=== PATIENT | male | born 1950 | race Caucasian/White ===

== ENCOUNTER → 2017-11-06 15:21 | Outpatient (CLI) | payer BC, SELFPAY ==
[2017-11-06 16:52] LABS: Alanine Aminotransferase 36 U/L (12-78); Albumin Level 3.9 gm/dL (3.4-5.0); Alkaline Phosphatase 56 U/L (46-116); Anion Gap 11.3 mEq/L (5-15); Aspartate Amino Transferase 26 U/L (15-37); Bilirubin,Total 0.3 mg/dL (0.2-1.0); Blood Urea Nitrogen 18 mg/dL (7-18); Carbon Dioxide 30 mmol/L (21.0-32.0); Chloride 105 mmol/L (98-107); Chol/HDL Ratio 3.1 (1-3.5); Cholesterol 129 mg/dL (140-200); Creatinine,Serum 0.78 mg/dL (0.70-1.30); Estimated Glomerular Filt Rate 100 ml/min (>60); GFR (African American) 121 ML/MIN (>60); Globulin 4.1 gm/dl (1.3-3.2); Glucose 97 mg/dL (74-106); HDL Cholesterol 41 mg/dL (27-67); LDL Cholesterol 58 mg/dL (0-130); Potassium 4.3 mmoL/L (3.5-5.1); Sodium 142 mmol/L (136-145); Triglycerides 152 mg/dL (30-200); VLDL Cholesterol 30 mg/dL (0-40)
== END ==
PROVIDERS: PCP Internal Medicine; Visit Provider Internal Medicine
DX: E78.5 Hyperlipidemia, unspecified (principal); I10 Essential (primary) hypertension; R39.12 Poor urinary stream; M54.42 Lumbago with sciatica, left side
CPT/HCPCS: 36415; 80053; 80061; 84153; 85014

== ENCOUNTER → 2018-05-16 10:13 | Outpatient (CLI) | payer BC, SELFPAY ==
[2018-05-16 12:49] LABS: Alanine Aminotransferase 29 U/L (12-78); Albumin Level 3.7 gm/dL (3.4-5.0); Alkaline Phosphatase 68 U/L (46-116); Anion Gap 12.3 mEq/L (5-15); Aspartate Amino Transferase 19 U/L (15-37); Bilirubin,Total 0.5 mg/dL (0.2-1.0); Blood Urea Nitrogen 16 mg/dL (7-18); Calcium 8.8 mg/dL (8.5-10.1); Carbon Dioxide 30 mmol/L (21.0-32.0); Chloride 104 mmol/L (98-107); Chol/HDL Ratio 5.3 (1-3.5); Cholesterol 210 mg/dL (140-200); Creatinine,Serum 0.82 mg/dL (0.70-1.30); Estimated Glomerular Filt Rate 94 ml/min (>60); GFR (African American) 114 ML/MIN (>60); Globulin 3.8 gm/dl (1.3-3.2); Glucose 102 mg/dL (74-106); HDL Cholesterol 40 mg/dL (27-67); LDL Cholesterol 122 mg/dL (0-130); Potassium 4.3 mmoL/L (3.5-5.1); Sodium 142 mmol/L (136-145); Total Protein,Serum 7.5 gm/dL (6.4-8.2); Triglycerides 242 mg/dL (30-200); VLDL Cholesterol 48 mg/dL (0-40)
== END ==
PROVIDERS: PCP Internal Medicine; Visit Provider Internal Medicine
DX: E78.5 Hyperlipidemia, unspecified (principal); I10 Essential (primary) hypertension
CPT/HCPCS: 36415; 80053; 80061

== ENCOUNTER → 2020-10-28 10:13 | Outpatient (CLI) | payer BC, SELFPAY ==
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
== END ==
PROVIDERS: PCP Internal Medicine; Visit Provider Internal Medicine
DX: S90.931A Unspecified superficial injury of right great toe, initial encounter (principal)
CPT/HCPCS: 73660

== ENCOUNTER → 2020-11-16 10:15 | Outpatient (CLI) | payer BC, SELFPAY ==
--- NOTE | 2020-11-16 10:21 | XR_ITS ---
PROCEDURE: XR FOOT WT BEARING RT 3V CLINICAL INDICATION: big toe pain COMPARISON: No exams were available for comparison FINDINGS: No fracture or dislocation. No lytic or blastic change. There is normal mineralization. There is pes planus. Osteoarthritic changes are present at the tarsal metatarsal junction dorsally. There is a small calcaneal spur as well as an enthesophyte at the Achilles insertion. Hammertoe deformity involves the 2nd toe. Other findings:None. IMPRESSION: Degenerative changes as described above Dictated by: Jacob Bruce MD 11/16/2020 11:42 Jacob Bruce MD in [place] 11/16/2020 11:42
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
== END ==
PROVIDERS: PCP Internal Medicine; Visit Provider Internal Medicine
DX: T14.8XXA Other injury of unspecified body region, initial encounter (principal); M79.642 Pain in left hand; M25.532 Pain in left wrist
CPT/HCPCS: 73110; 73130; 73630

== ENCOUNTER → 2020-11-21 14:37 | Outpatient (CLI) | payer BC, SELFPAY ==
--- NOTE | 2020-11-21 14:40 | XR_ITS ---
PROCEDURE: XR HAND LT MIN 3V CLINICAL INDICATION: LT hand fracture COMPARISON: CR XR HAND LT MIN 3V from 11/16/2020 FINDINGS: Degenerative changes of the metacarpophalangeal joints are noted. There is evidence of minor deformity of the 2nd metatarsal, likely sequela of prior fracture. No acute fractures or dislocations. The joint spaces are well-preserved. No significant degenerative/arthritic changes. No erosive changes evident. Other findings:None. IMPRESSION: Deformity of the 2nd metatarsal is noted, likely sequela of prior fracture. No other acute fractures or dislocations. Dictated by: Veronica Frye 11/21/2020 15:11 Veronica Frye in [place] 11/21/2020 15:11
== END ==
PROVIDERS: PCP Internal Medicine; Visit Provider Orthopaedic Surgery
DX: M79.642 Pain in left hand (principal)
CPT/HCPCS: 73130

== ENCOUNTER 2020-11-21 16:10 | Outpatient (RCR) | payer BC, SELFPAY | END 2020-11-21 17:00 | disposition home or self-care (01) | LOC: OT 16:10 | PROVIDERS: Visit Provider Orthopaedic Surgery | DX: M79.642 Pain in left hand (principal); S62.351A Nondisplaced fracture of shaft of second metacarpal bone, left hand, initial encounter for closed fracture | CPT/HCPCS: 97760 ==

== ENCOUNTER → 2020-12-16 12:37 | Outpatient (CLI) | payer BC, SELFPAY ==
--- NOTE | 2020-12-16 12:47 | XR_ITS ---
PROCEDURE: XR HAND LT MIN 3V CLINICAL INDICATION: Left hand fracture Posttraumatic pain follow-up fracture COMPARISON: CR XR HAND LT MIN 3V from 11/16/2020 CR XR HAND LT MIN 3V from 11/21/2020 FINDINGS: There is a nondisplaced fracture of the 2nd metacarpal as previously described not significantly changed. Well-circumscribed lucency is noted along the base of an osteophyte at the proximal aspect of the distal phalanx of the thumb suggesting an old fracture. There are osteoarthritic changes of the DIP joints and the 1st metacarpal-carpal joint IMPRESSION: Overall no significant change. Second metacarpal fracture once again noted and may be old. Please correlate with patient's area of pain and tenderness. Dictated by: Jacob Bruce MD 12/16/2020 16:26 Jacob Bruce MD in [place] 12/16/2020 16:26
== END ==
PROVIDERS: PCP Internal Medicine; Visit Provider Orthopaedic Surgery
DX: S62.351D Nondisplaced fracture of shaft of second metacarpal bone, left hand, subsequent encounter for fracture with routine healing (principal)
CPT/HCPCS: 73130

== ENCOUNTER → 2021-07-26 15:29 | Outpatient (CLI) | payer BC, SELFPAY ==
--- NOTE | 2021-07-26 15:32 | XR_ITS ---
PROCEDURE: XR HIP LT 2-3V W/PELVIS CLINICAL INDICATION: left hip pain COMPARISON: No exams were available for comparison FINDINGS: There are severe osteoarthritic changes of the left hip with loss of joint space superiorly and osteophyte formation. There is mild flattening of the superior lateral aspect of the femoral head and mild widening of the left hip joint space. There [id number] osteoarthritic changes of the right hip. IMPRESSION: Severe osteoarthritis of the left hip with mild flattening of the femoral head superior laterally [id number] osteoarthritis of the right hip Dictated by: Jacob Bruce MD 07/26/2021 16:39 Jacob Bruce MD in [place] 07/26/2021 16:39
== END ==
PROVIDERS: PCP Internal Medicine; Visit Provider Orthopaedic Surgery
DX: M25.552 Pain in left hip (principal)
CPT/HCPCS: 73502

== ENCOUNTER → 2021-09-06 15:30 | Outpatient (CLI) | payer BC, SELFPAY ==
--- NOTE | 2021-09-06 15:47 | XR_ITS ---
FINAL REPORT CLINICAL HISTORY: HTN, smoker FINDINGS: TWO VIEWS OF THE CHEST The heart is normal in size. The mediastinum is unremarkable. There is an 11 mm nodule in the right lung base, may represent a calcified granuloma. There is no pneumothorax. There are moderate degenerative changes of the thoracic spine. IMPRESSION: Right lung base nodule, may represent a calcified granuloma. Reviewed, Interpreted and Dictated by Miguel Raphael III, MD Transcribed by Keyla Mendoza Authenticated by Miguel Raphael III, MD on 09/06/2021 04:59:55 PM [facility]
--- NOTE | 2021-09-06 15:47 | ECG_ITS ---
APPROVED REPORT Exam: Resting ECG HR:54 bpm ECG Measurements Heart Rate 54 AXES MD 158 P 23 QRSd 86 QRS 56 QT 416 T 56 QTc 394 Conclusion Sinus bradycardia Otherwise normal ECG Electronically signed by : Stefan Pérez MD 09/08/2021 13:48:57
[2021-09-06 18:55] LABS: Basophils # 0.1 K/mm3 (0-0.2); Eosinophils # 0.2 K/mm3 (0.0-0.4); Eosinophils % 3.5 % (0.1-12.0); Hematocrit 43.7 % (42.0-52.0); Hemoglobin 14.2 g/dL (14.1-18.0); Lymphocytes # 2.3 K/mm3 (0.7-4.5); Lymphocytes % 36.5 % (10-50); Mean Corpuscular HGB Conc 32.5 g/dL (31.8-35.4); Mean Corpuscular Hemoglobin 29.3 pg (27.0-31.2); Mean Corpuscular Volume 90.3 fl (80-94); Mean Platelet Volume 9.4 fl (7.4-10.4); Monocytes # 0.4 K/mm3 (0.1-1.0); Monocytes % 6.5 % (1.7-9.3); Neutrophils # 3.3 K/mm3 (1.8-7.8); Neutrophils % 52.4 % (37.0-80.0); Platelet Count 203 K/mm3 (142-424); Red Blood Count 4.84 M/mm3 (4.60-6.20); Red Cell Distribution Width 13.6 % (11.5-17.5); White Blood Count 6.3 K/mm3 (4.8-10.8)
[2021-09-06 19:11] LABS: Chloride 103 mmol/L (98-107); Potassium 4.4 mmoL/L (3.5-5.1); Sodium 140 mmol/L (136-145)
[2021-09-06 19:13] LABS: Blood Urea Nitrogen 16 mg/dl (9-20); Estimated Glomerular Filt Rate 112 ml/min (>60); GFR (African American) 135 ML/MIN (>60)
[2021-09-06 19:14] LABS: Alanine Aminotransferase 18 U/L (12-78); Albumin Level 4.3 g/dl (3.5-5.0); Albumin/Globulin Ratio 1.6 (1.1-1.8); Alkaline Phosphatase 54 U/L (38-126); Anion Gap 11.4 mEq/L (5-15); Aspartate Amino Transferase 30 U/L (17-59); Bilirubin,Total 0.4 mg/dl (0.2-1.3); Calcium 9.1 mg/dl (8.4-10.2); Carbon Dioxide 30 mmol/L (22.0-30.0); Globulin 2.7 g/dL (1.3-3.2); Glucose 85 mg/dl (74-100)
== END ==
PROVIDERS: PCP Internal Medicine; Visit Provider Internal Medicine
DX: Z01.818 Encounter for other preprocedural examination (principal); I10 Essential (primary) hypertension; M16.12 Unilateral primary osteoarthritis, left hip
CPT/HCPCS: 71046; 80053; 85025; 93005

== ENCOUNTER → 2022-07-31 17:09 | Outpatient (CLI) | payer BC, SELFPAY ==
[2022-07-31 17:35] LABS: Basophils # 0.1 K/mm3 (0-0.2); Basophils % 0.9 % (0.1-2.0); Eosinophils # 0.2 K/mm3 (0.0-0.4); Eosinophils % 3.4 % (0.1-12.0); Hematocrit 44.7 % (42.0-52.0); Hemoglobin 14.4 g/dL (14.1-18.0); Lymphocytes # 2.3 K/mm3 (0.7-4.5); Lymphocytes % 35.8 % (10-50); Mean Corpuscular HGB Conc 32.1 g/dL (31.8-35.4); Mean Corpuscular Hemoglobin 27.9 pg (27.0-31.2); Mean Corpuscular Volume 87.1 fl (80-94); Mean Platelet Volume 9.2 fl (7.4-10.4); Monocytes # 0.4 K/mm3 (0.1-1.0); Neutrophils # 3.5 K/mm3 (1.8-7.8); Platelet Count 246 K/mm3 (142-424); Red Blood Count 5.14 M/mm3 (4.60-6.20); Red Cell Distribution Width 14.4 % (11.5-17.5); White Blood Count 6.4 K/mm3 (4.8-10.8)
[2022-07-31 19:41] LABS: Alanine Aminotransferase 21 U/L (12-78); Albumin Level 4.4 g/dl (3.5-5.0); Albumin/Globulin Ratio 1.5 (1.1-1.8); Alkaline Phosphatase 102 U/L (38-126); Anion Gap 13.5 mEq/L (5-15); Aspartate Amino Transferase 31 U/L (17-59); Bilirubin,Total 0.7 mg/dl (0.2-1.3); Blood Urea Nitrogen 14 mg/dl (9-20); Calcium 9.3 mg/dl (8.4-10.2); Carbon Dioxide 26 mmol/L (22.0-30.0); Chloride 103 mmol/L (98-107); Chol/HDL Ratio 6.2 (1-3.5); Cholesterol 229 mg/dl (140-200); Estimated Glomerular Filt Rate 83 ml/min (>60); GFR (African American) 101 ML/MIN (>60); Globulin 2.9 g/dL (1.3-3.2); Glucose 85 mg/dl (74-100); HDL Cholesterol 37 mg/dl (40-60); Potassium 4.5 mmoL/L (3.5-5.1); Sodium 138 mmol/L (136-145); Total Protein,Serum 7.3 g/dl (6.3-8.2); Triglycerides 164 mg/dl (30-150); VLDL Cholesterol 33 mg/dL (0-40)
[2022-07-31 19:51] LABS: Direct LDL Cholesterol 89.42 mg/dL (100-129)
[2022-07-31 20:10] LABS: Prostate Specific Ag Screen 0.9 ng/ml (0.0-4.0)
== END ==
PROVIDERS: PCP Internal Medicine; Visit Provider Internal Medicine
DX: I10 Essential (primary) hypertension (principal); M54.42 Lumbago with sciatica, left side; K21.9 Gastro-esophageal reflux disease without esophagitis; J44.9 Chronic obstructive pulmonary disease, unspecified; N40.1 Benign prostatic hyperplasia with lower urinary tract symptoms; Z96.642 Presence of left artificial hip joint; Z12.5 Encounter for screening for malignant neoplasm of prostate
CPT/HCPCS: 80053; 80061; 85025; G0103

== ENCOUNTER → 2023-01-29 15:25 | Outpatient (CLI) | payer BC, SELFPAY ==
[2023-01-29 16:43] LABS: Alanine Aminotransferase 21 U/L (12-78); Albumin Level 4.2 g/dl (3.5-5.0); Albumin/Globulin Ratio 1.4 (1.1-1.8); Alkaline Phosphatase 67 U/L (38-126); Anion Gap 12.3 mEq/L (5-15); Aspartate Amino Transferase 29 U/L (17-59); Bilirubin,Total 0.5 mg/dl (0.2-1.3); Blood Urea Nitrogen 15 mg/dl (9-20); Calcium 8.8 mg/dl (8.4-10.2); Carbon Dioxide 29 mmol/L (22.0-30.0); Chloride 103 mmol/L (98-107); Chol/HDL Ratio 6.4 (1-3.5); Cholesterol 245 mg/dl (140-200); Estimated Glomerular Filt Rate 111 ml/min (>60); GFR (African American) 135 ML/MIN (>60); Glucose 87 mg/dl (74-100); HDL Cholesterol 38 mg/dl (40-60); Potassium 4.3 mmoL/L (3.5-5.1); Sodium 140 mmol/L (136-145); Total Protein,Serum 7.2 g/dl (6.3-8.2); Triglycerides 294 mg/dl (30-150); VLDL Cholesterol 59 mg/dL (0-40)
[2023-01-29 16:54] LABS: Direct LDL Cholesterol 66.95 mg/dL (100-129)
== END ==
PROVIDERS: PCP Internal Medicine; Visit Provider Internal Medicine
DX: I10 Essential (primary) hypertension (principal); E78.5 Hyperlipidemia, unspecified
CPT/HCPCS: 36415; 80053; 80061

== ENCOUNTER 2023-10-30 17:00 | Outpatient (CLI) | payer BC, SELFPAY ==
[2023-10-30 17:57] LABS: Alanine Aminotransferase 23 U/L (12-78); Albumin Level 4.3 g/dl (3.5-5.0); Albumin/Globulin Ratio 1.5 (1.1-1.8); Alkaline Phosphatase 61 U/L (38-126); Anion Gap 11.3 mEq/L (5-15); Aspartate Amino Transferase 30 U/L (17-59); Bilirubin,Total 0.5 mg/dl (0.2-1.3); Blood Urea Nitrogen 14 mg/dl (9-20); Carbon Dioxide 28 mmol/L (22.0-30.0); Chloride 103 mmol/L (98-107); Chol/HDL Ratio 5.3 (1-3.5); Cholesterol 190 mg/dl (140-200); Estimated Glomerular Filt Rate 111 ml/min (>60); GFR (African American) 135 ML/MIN (>60); Globulin 2.8 g/dL (1.3-3.2); Glucose 88 mg/dl (74-100); HDL Cholesterol 36 mg/dl (40-60); Potassium 4.3 mmoL/L (3.5-5.1); Sodium 138 mmol/L (136-145); Total Protein,Serum 7.1 g/dl (6.3-8.2); Triglycerides 215 mg/dl (30-150); VLDL Cholesterol 43 mg/dL (0-40)
[2023-10-30 18:09] LABS: Direct LDL Cholesterol 64.84 mg/dL (100-129)
[2023-10-30 18:28] LABS: Prostate Specific Ag Screen 0.9 ng/ml (0.0-4.0)
== END 2023-10-30 23:59 ==
LOC: LAB.DROPOF 17:00
PROVIDERS: PCP Internal Medicine; Visit Provider Internal Medicine
DX: I10 Essential (primary) hypertension (principal); E78.5 Hyperlipidemia, unspecified; K21.9 Gastro-esophageal reflux disease without esophagitis; N40.1 Benign prostatic hyperplasia with lower urinary tract symptoms; J44.9 Chronic obstructive pulmonary disease, unspecified; Z12.5 Encounter for screening for malignant neoplasm of prostate
CPT/HCPCS: 80053; 80061; G0103

== ENCOUNTER 2024-04-29 16:50 | Outpatient (CLI) | payer BC, SELFPAY ==
[2024-04-29 17:22] LABS: Basophils # 0.1 K/mm3 (0-0.2); Basophils % 0.9 % (0.1-2.0); Eosinophils # 0.2 K/mm3 (0.0-0.4); Eosinophils % 3.2 % (0.1-12.0); Hematocrit 43.2 % (42.0-52.0); Hemoglobin 13.6 g/dL (14.1-18.0); Lymphocytes # 2.1 K/mm3 (0.7-4.5); Lymphocytes % 35.6 % (10-50); Mean Corpuscular HGB Conc 31.5 g/dL (31.8-35.4); Mean Platelet Volume 9.4 fl (7.4-10.4); Monocytes # 0.3 K/mm3 (0.1-1.0); Monocytes % 5.6 % (1.7-9.3); Neutrophils # 3.3 K/mm3 (1.8-7.8); Neutrophils % 54.7 % (37.0-80.0); Platelet Count 185 K/mm3 (142-424); Red Cell Distribution Width 14.6 % (11.5-17.5)
[2024-04-29 18:12] LABS: Alanine Aminotransferase 15 U/L (12-78); Albumin Level 3.8 g/dl (3.5-5.0); Albumin/Globulin Ratio 1.2 (1.1-1.8); Alkaline Phosphatase 57 U/L (38-126); Anion Gap 8.3 mEq/L (5-15); Aspartate Amino Transferase 28 U/L (17-59); Bilirubin,Total 0.6 mg/dl (0.2-1.3); Blood Urea Nitrogen 11 mg/dl (9-20); Calcium 8.8 mg/dl (8.4-10.2); Carbon Dioxide 31 mmol/L (22.0-30.0); Chloride 103 mmol/L (98-107); Cholesterol 204 mg/dl (140-200); Estimated Glomerular Filt Rate 111 ml/min (>60); GFR (African American) 134 ML/MIN (>60); Globulin 3.1 g/dL (1.3-3.2); Glucose 80 mg/dl (74-100); HDL Cholesterol 34 mg/dl (40-60); Potassium 4.3 mmoL/L (3.5-5.1); Sodium 138 mmol/L (136-145); Total Protein,Serum 6.9 g/dl (6.3-8.2); Triglycerides 209 mg/dl (30-150); VLDL Cholesterol 42 mg/dL (0-40)
[2024-04-29 18:23] LABS: Direct LDL Cholesterol 65.17 mg/dL (100-129)
== END 2024-04-29 23:59 | disposition home or self-care (01) ==
LOC: LAB.DROPOF 16:51
PROVIDERS: PCP Internal Medicine; Visit Provider Internal Medicine
DX: I10 Essential (primary) hypertension (principal); E78.5 Hyperlipidemia, unspecified
CPT/HCPCS: 80053; 80061; 85025

== ENCOUNTER 2024-05-13 12:21 | Outpatient (CLI) | payer BC, SELFPAY | END 2024-05-13 23:59 | disposition home or self-care (01) | LOC: RT 12:23 | PROVIDERS: PCP Internal Medicine; Visit Provider Internal Medicine | DX: I10 Essential (primary) hypertension (principal); Z86.73 Personal history of transient ischemic attack (TIA), and cerebral infarction without residual deficits | CPT/HCPCS: 93225; 93227 ==

== ENCOUNTER 2024-05-27 14:36 | Outpatient (CLI) | payer BC, SELFPAY ==
--- NOTE | 2024-05-27 14:40 | CA_ITS ---
APPROVED REPORT EXAM: Comprehensive 2D, Doppler, and color-flow Echocardiogram Upper Inspector: Marley Oropeza CRT Ht: 5 ft 9 in Wt: 201lbs BSA: 2.07 BP: 146/84 mmHg Indications: CVA/TIA, Hyperlipidemia, Hypertension/HDD, SMOKER 2D Dimensions LA Volume 79.60 mL LA Volume Index 37.50 mL/m2 (M/F) 16-34 M-Mode Dimensions RVDd 2.25 cm (0.9-2.6) LA Diam 4.32 cm (1.9-4.0) LVDd 6.29 cm (3.5-5.7) LVDs 4.79 cm (3.5-5.7) IVSd 1.11 cm (0.6-1.1) PWd 0.68 cm (0.6-1.1) EF (Teich) 46.60% FS 23.80% EDV (Teich) 200.50 mL TAPSE 1.93 (<1.7) ESV (Teich) 107.00 mL LV Diastology E Decel Time 143 (160-240 msec) E/A Ratio 3.06 MED A' 3.40 cm/s LAT A' 3.60 cm/s Aortic Valve AO Peak GR. 6.40 mmHg Mitral Valve MV A Velocity 44.0 (40-130 cm/s) E/A Ratio 3.06 Pulmonary Valve PV Peak Velocity 96.0 (50-150 cm/s) Tricuspid Valve TR P. Velocity 309.00 cm/s RAP Estimate 10.00 mmHg RVSP 48.30 mmHg Left Ventricle The left ventricle is normal size. The left ventricular systolic function is normal. The left ventricular ejection fraction is within the normal range. There is increased LV wall thickness. There is normal LV segmental wall motion. Grade 2 diastolic dysfunction is present. LVEF is 60%. Right Ventricle The right ventricle is normal size. The right ventricular systolic function is normal. Atria Left atrium is moderately dilated. Right atrium is mildly dilated. There is no Doppler evidence of interatrial shunt. Aortic Valve The aortic valve is mildly thickened. There is no aortic valvular stenosis. No aortic regurgitation is present. Mitral Valve There is possible prolapse of the posterior mitral valve leaflet. No evidence of mitral annular disjunction. No evidence of mitral valve stenosis. Moderate to severe mitral regurgitation is present. The MR jet is eccentric and anteriorly directed. The severity of MR may be underestimated in the setting of eccentric MR jet. Tricuspid Valve The tricuspid valve leaflets are thin and pliable. Mild tricuspid regurgitation. RVSP is 30-35 mmHg. Pulmonic Valve The pulmonary valve is not well-visualized. Great Vessels The aortic root is normal in size. The ascending aorta is not well-visualized. IVC is normal in size and collapses >50% with inspiration. Pericardium There is no pericardial effusion. Other Information Study Quality: Fair Conclusion Normal biventricular systolic function. Grade 2 diastolic dysfunction is present. Biatrial dilation. Possible prolapse of the posterior MV leaflet. No evidence of mitral annular disjunction (MAD). Moderate to severe MR. The MR jet is eccentric and anteriorly directed. The MR jet may be underestimated in the setting of eccentric jet. Mild tricuspid regurgitation. RVSP is 30-35 mmHg. In the setting of possible MV prolapse and moderate to severe MR, further evaluation with outpatient VINOD is suggested to evaluate for the true mechanism and severity of MR. Electronically signed by : Vivi Joseph MD 05/28/2024 12:18:49
--- NOTE | 2024-05-27 14:40 | CA_ITS ---
FINAL REPORT TECHNIQUE: Real-time imaging was performed of the extracranial carotid arteries in transverse and longitudinal planes, with color duplex evaluation of blood flow velocity. Spectral analysis was performed. The cervical vertebral arteries were also examined. CLINICAL HISTORY: TIA on 05/08/2024-loss of ability to speak COMPARISON: None FINDINGS: NASCET technique is utilized for stenosis evaluation. Right carotid system (centimeters/second): CCA: 57 ICA: 94 ECA: 43 Vertebral artery: Antegrade ICA/CCA ratio: 1.9 Mild plaque is identified at the bifurcation. Left carotid system (centimeters/second): CCA: 71 ICA: 107 ECA: 54 Vertebral artery: Antegrade ICA/CCA ratio: 2.15 Mild plaque is identified at the bifurcation. IMPRESSION: Less than 50% right ICA stenosis. Less than 50% left ICA stenosis. Antegrade flow bilateral vertebral arteries. Reviewed, Interpreted and Dictated by Jesús Ponce MD Transcribed by Kacy Ivy Authenticated and [facility]
== END 2024-05-27 23:59 | disposition home or self-care (01) ==
LOC: RT 14:37
PROVIDERS: PCP Internal Medicine; Visit Provider Internal Medicine
DX: I10 Essential (primary) hypertension (principal); G45.9 Transient cerebral ischemic attack, unspecified; E78.5 Hyperlipidemia, unspecified
CPT/HCPCS: 93306; 93880

== ENCOUNTER 2024-07-17 09:11 | Outpatient (CLI) | payer BC, SELFPAY ==
[2024-07-17 09:59] LABS: Blood Urea Nitrogen 16 mg/dl (9-20); Estimated Glomerular Filt Rate 95 ml/min (>60); GFR (African American) 115 ML/MIN (>60)
[2024-07-17] MEDS: 0.9 % SODIUM CHLORIDE 50 ML VIAL IV (11:46)
[2024-07-17] MEDS: SODIUM CHLORIDE 0.9% 10ML SYR (RAD ONLY) 10 ML IV (11:46)
[2024-07-17] MEDS: GADOTERIDOL INJ 20ML SYRINGE 20 ML IV (11:46)
== END 2024-07-17 23:59 | disposition home or self-care (01) ==
PROVIDERS: PCP Internal Medicine; Visit Provider Internal Medicine
DX: I34.0 Nonrheumatic mitral (valve) insufficiency (principal); R93.1 Abnormal findings on diagnostic imaging of heart and coronary circulation
CPT/HCPCS: 36415; 75561; 82565; 84520; A9576

== ENCOUNTER 2024-07-22 08:36 | Day surgery (SDC) | payer BC, SELFPAY ==
--- NOTE | 2024-07-22 08:50 | CA_ITS ---
APPROVED REPORT EXAM: Comprehensive 2D, Doppler, and color-flow Echocardiogram Asphalt Mixer: RT Peterson(R) Ht: 5 ft 9 in Wt: 202lbs BSA: 2.07 BP: 127/65 mmHg Indications: mod-severe MR on TTE, COPD, fatigue, weakness, smoker, HTN, hyperlipidemia. Procedure After obtaining informed consent, patient underwent transesophageal echo in the [facility]. Type of Sedation : MAC Sedation was administered by Francisco Elizalde C.R.N.A. Sedation start time: 10:15 Case end Time: 10:30 Transesophageal probe was inserted and advanced into esophagus without difficulty by Dr. Moi Joseph. The VINOD was performed without complications. Throughout the procedure, the blood pressure, pulse oximetry, cardiac rhythm, and rate were monitored. The patient tolerated the procedure without adverse effects. Recovery from conscious sedation was uneventful and vital signs were stable. Left Ventricle The left ventricle is normal size. The left ventricular systolic function is normal. The left ventricular ejection fraction is within the normal range. There is increased LV wall thickness. There is normal LV segmental wall motion. LVEF is 60%. Right Ventricle The right ventricle is normal size. The right ventricular systolic function is normal. Atria The left atrium is dilated. No thrombus is visualized in the left atrium or appendage. The right atrium is dilated. Interatrial septum is intact without evidence of ASD or PFO. Aortic Valve The aortic valve is mildly thickened. There is no aortic valvular stenosis. Trace aortic regurgitation is present. Mitral Valve There is prolapse of the posterior MV leaflet (P1-P2 segments). No evidence of mitral valve stenosis. Severe mitral regurgitation is present. The mechanism of MR is due to prolapsing of the posterior MV leaflet. The MR jet is eccentric and anteriorly directed. EROA by PISA method is 0.43 cm2. MR volume is 78 mL. Regurgitant fraction is 49%. Tricuspid Valve Tricuspid valve is grossly normal in structure and function. Mild tricuspid regurgitation. RVSP is 22 mmHg + RA pressure. Pulmonic Valve The pulmonary valve is normal in structure. Trace pulmonic regurgitation. Great Vessels The aortic root is normal in size. The ascending aorta is normal in size. Pericardium There is no pericardial effusion. Other Information Study Quality: Fair Conclusion Normal LV systolic function in the setting of severe MR (LVEF 60%). Biatrial dilation. Posterior MV leaflet prolapse (P1-P2 segments). Severe MR (The MR jet is eccentric and anteriorly directed. EROA by PISA method is 0.43 cm2. MR volume is 78 mL. Regurgitant fraction is 49%). Mild TR. RVSP 22 mmHg + RA pressure. Electronically signed by : Vivi Joseph MD 07/24/2024 15:09:05
[2024-07-22 09:00] VITALS: BMI 36.9
--- NOTE | 2024-07-22 09:08 | ECG_ITS ---
APPROVED REPORT Exam: Resting ECG HR:62 bpm ECG Measurements Heart Rate 62 AXES ID 159 P 17 QRSd 106 QRS 54 QT 398 T 56 QTc 403 Conclusion SINUS RHYTHM WITH SINUS ARRHYTHMIA NORMAL ECG UNCONFIRMED REPORT Electronically signed by : Lewis Ly MD 07/24/2024 14:14:18
[2024-07-22 09:16] VITALS: BP 161/96; PULSE 65; RESP 18; TEMP 36.5; O2SAT 99; BMI 31.6
[2024-07-22] MEDS: LACTATED RINGERS 1000ML 1,000 ML 25 ML IV (09:27)
[2024-07-22 09:38] LABS: Basophils % 0.7 % (0.1-2.0); Eosinophils # 0.1 K/mm3 (0.0-0.4); Eosinophils % 1.9 % (0.1-12.0); Hematocrit 36.3 % (42.0-52.0); Hemoglobin 12.8 g/dL (14.1-18.0); Lymphocytes # 1.2 K/mm3 (0.7-4.5); Lymphocytes % 17.7 % (10-50); Mean Corpuscular HGB Conc 35.2 g/dL (31.8-35.4); Mean Corpuscular Hemoglobin 30.1 pg (27.0-31.2); Mean Corpuscular Volume 85.6 fl (80-94); Mean Platelet Volume 8.5 fl (7.4-10.4); Monocytes # 0.4 K/mm3 (0.1-1.0); Monocytes % 5.1 % (1.7-9.3); Neutrophils # 5.1 K/mm3 (1.8-7.8); Neutrophils % 74.6 % (37.0-80.0); Platelet Count 135 K/mm3 (142-424); Red Blood Count 4.24 M/mm3 (4.60-6.20); White Blood Count 6.8 K/mm3 (4.8-10.8)
[2024-07-22 09:45] LABS: Chloride 105 mmol/L (98-107); Potassium 3.7 mmoL/L (3.5-5.1); Sodium 138 mmol/L (136-145)
[2024-07-22 09:48] LABS: Blood Urea Nitrogen 12 mg/dl (9-20); Creatinine Clearance Estimated 92 mL/min (50-200); Estimated Glomerular Filt Rate 95 ml/min (>60); GFR (African American) 115 ML/MIN (>60)
--- NOTE | 2024-07-22 09:48 | P.PNANES_ITS ---
[facility] Disclaimer: The information contained in this section may have been updated after the patient was seen, as this information can be updated by other users. Medical History BPH loc w urin obs/LUTS Lumbago with sciatica, left side Unilateral primary osteoarthritis, left hip Gastro-esophageal reflux disease without esophagitis Chronic obstructive pulmonary disease, unspecified Allergic rhinitis, unspecified Essential (primary) hypertension Nicotine dependence, unspecified, with unspecified nicotine-induced disorders Hyperlipidemia Surgical History History of total left hip replacement Family History (Updated 07/22/24 @ 09:11 by Stacie Baxter RN) Other No significant family history Social History (Updated 07/22/24 @ 09:12 by Stacie Baxter RN) Smoking Status: Former smoker tobacco type: cigarettes alcohol intake: never substance use type: denies use current occupational status: employed household members: significant other [facility] Anesthesia Checklist Patient Identification Patient Identification: Arm Band and Family Structural Data Admitted From: Home Planned Operative Procedure/s: VINOD Consent for Planned Operative Procedure(s) Verified: Yes Verified Documents: Surgical Consent and History and Physical NPO Status Verified Time NPO: 00:00 Additional verifications Patient : No Anesthesia Reactions: No Hx Blood Transfusions: No Blood Transfusion Reaction: No Cephalosporin Allergy: No Previous Colonoscopy: Yes Airway Assessment Mallampati Score:: Class II C-Spine Mobility Assessed: Yes TMJ Mobility Assessed: Yes Dentition: Edentulous Neurological Assessment Level of Consciousness: Awake, Alert, Appropriate and Follows Commands Hx Seizures: No Numbness or tingling in extremities: No Anesthesia Plan Anesthesia Risk discussed: Yes ASA Class: II Anesthesia Type: MAC Preoperative Comments Pre-Operative Comments: Leaky valve. Hypertension. TIA. Abnormal echocardiogram.
[2024-07-22 09:49] LABS: Anion Gap 8.7 mEq/L (5-15); Calcium 8.5 mg/dl (8.4-10.2); Carbon Dioxide 28 mmol/L (22.0-30.0); Glucose 99 mg/dl (74-100)
[2024-07-22 09:50] LABS: Activated Partial Thrombo Time 29.8 seconds (22.8-30.6); INR 0.94 (0.9-1.1); Prothrombin Time 10.6 seconds (10.1-12.5)
[2024-07-22 10:10] VITALS: O2SAT 96
[2024-07-22 10:30] VITALS: BP 149/105; PULSE 79; RESP 15; TEMP 36.6; O2SAT 96
[2024-07-22 10:40] VITALS: BP 151/74; PULSE 65; RESP 18; O2SAT 93
[2024-07-22 10:50] VITALS: BP 133/88; PULSE 80; RESP 16; O2SAT 95
[2024-07-22 11:00] VITALS: BP 153/91; PULSE 62; RESP 16; TEMP 36.6; O2SAT 99
== END 2024-07-22 11:00 | disposition home or self-care (01) ==
PROVIDERS: PCP Internal Medicine; Visit Provider Internal Medicine
DX: I34.0 Nonrheumatic mitral (valve) insufficiency (principal); R93.1 Abnormal findings on diagnostic imaging of heart and coronary circulation; I10 Essential (primary) hypertension; F17.210 Nicotine dependence, cigarettes, uncomplicated; Z79.01 Long term (current) use of anticoagulants; Z79.899 Other long term (current) drug therapy; G45.9 Transient cerebral ischemic attack, unspecified
CPT/HCPCS: 80048; 85025; 85610; 85730; 93005; 93270; 93312; 93319; J2704; J7120

== ENCOUNTER 2024-10-27 11:10 | Outpatient (CLI) | payer MEDICARE, SELFPAY ==
[2024-10-27 11:47] LABS: Basophils # 0.1 K/mm3 (0-0.2); Basophils % 0.7 % (0.1-2.0); Eosinophils # 0.3 K/mm3 (0.0-0.4); Hematocrit 40.5 % (42.0-52.0); Hemoglobin 13.2 g/dL (14.1-18.0); Lymphocytes # 2.3 K/mm3 (0.7-4.5); Lymphocytes % 34.1 % (10-50); Mean Corpuscular HGB Conc 32.6 g/dL (31.8-35.4); Mean Corpuscular Hemoglobin 28.1 pg (27.0-31.2); Mean Corpuscular Volume 86.2 fl (80-94); Mean Platelet Volume 10.8 fl (7.4-10.4); Monocytes # 0.5 K/mm3 (0.1-1.0); Monocytes % 7.9 % (1.7-9.3); Neutrophils # 3.6 K/mm3 (1.8-7.8); Neutrophils % 53.2 % (37.0-80.0); Platelet Count 179 K/mm3 (142-424); Red Cell Distribution Width 13.5 % (11.5-17.5); White Blood Count 6.7 K/mm3 (4.8-10.8)
[2024-10-27 12:04] LABS: Albumin Level 4.4 g/dl (3.5-5.0); Chloride 105 mmol/L (98-107); Potassium 4.4 mmoL/L (3.5-5.1); Sodium 138 mmol/L (136-145)
[2024-10-27 12:07] LABS: Alanine Aminotransferase 23 U/L (12-78); Albumin/Globulin Ratio 1.7 (1.1-1.8); Alkaline Phosphatase 57 U/L (38-126); Anion Gap 10.4 mEq/L (5-15); Aspartate Amino Transferase 40 U/L (17-59); Bilirubin,Total 0.5 mg/dl (0.2-1.3); Blood Urea Nitrogen 16 mg/dl (9-20); Calcium 9.1 mg/dl (8.4-10.2); Carbon Dioxide 27 mmol/L (22.0-30.0); Cholesterol 123 mg/dl (140-200); Estimated Glomerular Filt Rate 95 ml/min (>60); GFR (African American) 115 ML/MIN (>60); Globulin 2.6 g/dL (1.3-3.2); Glucose 84 mg/dl (74-100); HDL Cholesterol 41 mg/dl (40-60); Triglycerides 141 mg/dl (30-150); VLDL Cholesterol 28 mg/dL (0-40)
[2024-10-27 12:18] LABS: Direct LDL Cholesterol 35.74 mg/dL (100-129)
== END 2024-10-27 23:59 | disposition home or self-care (01) ==
PROVIDERS: PCP Internal Medicine; Visit Provider Internal Medicine
DX: I10 Essential (primary) hypertension (principal); E78.49 Other hyperlipidemia; Z86.73 Personal history of transient ischemic attack (TIA), and cerebral infarction without residual deficits
CPT/HCPCS: 36415; 80053; 80061; 85025

== ENCOUNTER 2025-04-28 13:00 | Outpatient (CLI) | payer MEDICARE, SELFPAY ==
--- OUTSIDE RECORDS SUMMARY | 2025-03-15 10:00 | XMS_ITS | Encounter Summary ---
Author Organization [facility] Address [address] [place] [address] Care Team Providers Care Network Relay Tester Name Role Phone Stefan Pérez MD Primary Care Provider [phone] Reason for Referral * Consultation (Routine) - Closed Specialty Diagnoses / Procedures Referred By Contac t Referred To Contact Cardiothoracic Surgery Diagnoses Nonrheumatic mitral valve regurgitation Ana Cornelius PA [address] [place] [address] Phone: tel: fax: [facility] [address], [address] [place] [address] Phone: tel:[phone] fax:[phone] Referral ID Status Reason Start Date Expiration Date V isits Requested Visits Authorized [id number] Closed Specialty Services Required 03/15/2025 09/14/2026 1 1 Reason for Visit * Consultation (Routine) - Closed Specialty Diagnoses / Procedures Referred By Contac t Referred To Contact Cardiology Diagnoses Mitral valve insufficiency, unspecified etiology Moi Joseph MD [address] [facility] [address] [place] [address] Phone: tel: fax: Referral ID Status Reason Start Date Expiration Date V isits Requested Visits Authorized [id number] Closed Specialty Services Required 02/16/2025 08/18/2026 1 1 Encounter Details Date Type Department Care Team (Latest Contact Info) Description 03/15/2025 10:00 AM EDT Office Visit [facility] [address] [place] [address] Joanne Bolaños MD [address] [place] [address] Nonrheumatic mitral valve regurgitation (Primary Dx); Heart failure, unspecified (CMS/HCC) Social History Tobacco Use Types Packs/Day Years Used Date Smoking Tobacco: Former Cigarettes 1 30 Smokeless Tobacco: Never Alcohol Use Standard Drinks/Week Comments Not Currently 0 (1 standard drink = 0.6 oz pure alcohol) Hx ETOH abuse none x 15 years PHQ-2 Answer Date Recorded Patient Health Questionnaire-2 Score 0 03/15/2025 PHQ-9 Answer Date Recorded Patient Health Questionnaire-9 Score 0 03/15/2025 Sex and Gender Information Value Date Recorded Sex Assigned at Not on file Legal Sex Male 5:55 PM EDT Gender Identity Not on file Sexual Orientation Not on file documented as of this encounter Last Filed Vital Signs Vital Sign Reading Time Taken Comments Blood Pressure 138/93 03/15/2025 10:17 AM EDT Pulse 53 03/15/2025 10:17 AM EDT Temperature - - Respiratory Rate - - Oxygen Saturation 98% 03/15/2025 10: 17 AM EDT Inhaled Oxygen Concentration - - Weight 89.2 kg (196 lb 10.4 oz) 025 10:14 AM EDT Height 175.3 cm (5' 9 ) 03/15/2025 10:1 4 AM EDT Body Mass Index 29.04 03/15/2025 10:14 AM EDT documented in this encounter Functional Status * Over the past 2 weeks, how often have you been bothered by any of the following problems? Question Answer Date of Assessment Author Little interest or pleasure in doing things Not at all 03/15/2025 10:15 AM EDT Jyothi Arrington Feeling down, depressed, or hopeless Not at all 03/15/2025 10:15 AM EDT Jyothi Arrington Patient Health Questionnaire -2 Score 0 03/15/2025 10:15 AM Jyothi Tamez * Question Answer Date of Assessment Author Trouble falling or staying asleep, or sleeping too much Not at all 03/15/2025 10:15 AM EDJyothi Huynh Feeling tired or having prateek le energy Not at all 03/15/2025 10:15 AM EDT Jyothi Arrington Poor appetite or overeating Not at all 03/15/2025 10 :15 AM EDT Jyothi Arrington Feeling bad about yourself - or that you are a failure or have let yourself or your family down Not at all 03/15/2025 10:15 AM EDT Jyothi Chavarria Trouble concentrating on thi ngs, such as reading the newspaper or watching television Not at all 03/15/2025 10:15 AM EDT Jyothi Arrington Moving or speaking so slowly that other people could have noticed? Or the opposite - being so fidgety or restless that you have been moving around a lot more than usual. Not at all 03/15/2025 10:15 AM EDJyothi Huynh Thoughts that you would be b china off or hurting yourself in some way Not at all 03/15/2025 10:15 AM EDJyothi Huynh Patient Health Questionnaire -9 Score 0 03/15/2025 10:15 AM Jyothi Tamez * If you checked off any problems on this questionnaire so far, Question Answer Date of Assessment Author How difficult have these problems made it for you to do your work, take care of things at home, or get along with other people? Not difficult at all 03/15/2025 10:15 AM Jyothi Tamez documented as of this encounter Miscellaneous Notes * Progress Notes - Ana Cornelius PA - 03/15/2025 10:00 AM EDT Images from the original note were not included. Structural Heart Consult Note Jake Pacheco is a 74 y.o. male who presents today for consultation with Dr. Bolaños at the request of Dr. Joseph in regard to mitral regurgitation. Patient's medical history is significant for HTN, COPD, H/o tobacco abuse and mitral valve disease. This Fall patient has what he and his describe as an episode after working and getting out of the showering. He was unable to get words out and girlfriend called EMS. Patient states since thattime he has been more fatigued and wearing out faster. 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 Denies any symptoms of chest discomfort or LE edema. Cardiac Testing: CMR 07/17/2024 significant MR TTE 05/27/24: EF 60%, anteriorly directed mitral valve jet with moderate-severe MR VINOD 07/22/24: EF 60%, severe MR, prolapsing posterior leaflet, mild TR Review of symptoms 14 Point ROS reviewed and is otherwise negative except as per HPI. The following portions of the chart were reviewed this encounter and updated as appropriate: Tobacco Allergies Meds Problems Med Hx Surg Hx Fam Hx Medications Current Medications[1] Physical Exam Physical Exam Vitals and nursing note reviewed. Constitutional: Appearance: Normal appearance. HENT: Head: Normocephalic and atraumatic. Nose: Nose normal. Mouth/Throat: Mouth: Mucous membranes are moist. Eyes: Conjunctiva/sclera: Conjunctivae normal. Cardiovascular: Rate and Rhythm: Normal rate and regular rhythm. Pulses: Normal pulses. Heart sounds: S1 normal and S2 normal. Murmur heard. High-pitched blowing holosystolic murmur is present at the apex. Pulmonary: Effort: Pulmonary effort is normal. Breath sounds: Normal breath sounds. Abdominal: General: Abdomen is flat. Palpations: Abdomen is soft. Musculoskeletal: General: Normal range of motion. Cervical back: Neck supple. Skin: General: Skin is warm and dry. Neurological: General: No focal deficit present. Mental Status: He is alert and oriented to person, place, and time. Psychiatric: Attention and Perception: Attention normal. Mood and Affect: Mood normal. Behavior: Behavior normal. Visit Vitals BP (!) 138/93 Pulse 53 Ht 1.753 m (5' 9 ) Wt 89.2 kg (196 lb 10.4 oz) SpO2 98% BMI 29.04 kg/m?? Imaging No echocardiogram results found for the past 12 months Labs Lab Results Component Value Date/Time WBC 9.39 12/09/2021 0348 RBC 3.58 (L) 12/09/2021 0348 HGB 10.5 (L) 12/09/2021347 HCT 31.6 (L) 12/09/20218 Lab Results Component Value Date/Time BUN 19 12/09/20218 NA 135 (L) 12/09/2021347 K 4.1 12/09/2021347 CL 102 12/09/2021347 No results found for: AST , ALT , ALKPHOS No results found for: CHOL , LDL , HDL , TRIGLYCERIDE Lab Results Component Value Date/Time HGBA1C 5.5 11/29/2021 1405 No results found for: TSH , FREET4 Assessment and Plan #Mitral Regurgitation --Echo images reviewed showing severe MR with a prolapsing posterior leaflet --ECG shows sinus bradycardia --NYHA Class II --Increase fatigue over the last 6 months to a year --Will refer to CT surgery for consideration of mitral valve repair given primary MR etiology #HTN --Continue current medical therapy Referral to CT surgery. I spent 61 minutes performing the following components of the encounter (on the day of the encounter): reviewing History, examining the patient, reviewing imaging and/or labs, Independently interpreting echocardiogram, ECG and/or other imaging results, counseling the patient and family/caregiver, communicating with other health neurocritical care physician, and entering clinical information in the EHR. Greater than 50% of the time spent on the encounter was face to face providing direct patient care, counseling for the patient/caregiver, and care coordination. Ana Cornelius PA-C Structural GRISELDA [1] Current Outpatient Medications Medication Sig Dispense Refill acetaminophen (Tylenol) 500 MG tablet Take 2 tablets (1,000 mg total) by mouth every 8 (eight) hours if needed for mild pain. 100 tablet 1 aspirin 81 MG EC tablet Take 1 tablet by mouth daily. atorvastatin (Lipitor) 20 MG tablet Take 1 tablet by mouth daily. bisoprolol-hydroCHLOROthiazide (Ziac) 5-6.25 MG tablet 1 (one) time each day. clopidogrel (Plavix) 75 MG tablet Take by mouth daily. losartan (Cozaar) 100 MG tablet Take 1 tablet by mouth daily. senna-docusate sodium (Senokot-S) 8.6-50 MG tablet Take 1 tablet by mouth 1 (one) time each day. 30tablet 0 tiZANidine (Zanaflex) 4 MG tablet 1 (one) time each day. traMADol (Ultram) 50 MG tablet Take 1 tablet (50 mg total) by mouth every 4 (four) hours if needed for severe pain. 60 tablet 0 gabapentin (Neurontin) 100 MG capsule Take 1 capsule (100 mg total) by mouth 3 (three) times a day.(Patient not taking: Reported on 03/15/2025) 30 capsule 0 meloxicam (Mobic) 15 MG tablet Take 1 tablet (15 mg total) by mouth 1 (one) time each day. (Patientnot taking: Reported on 03/15/2025) 30 tablet 0 omeprazole (PriLOSEC) [address] capsule Take 1 capsule (20 mg total) by mouth 1 (one) time each day.Do not crush or chew. Take for 4 weeks post-operatively. (Patient not taking: Reported on 03/15/2025) 30 capsule 0 No current facility-administered medications for this visit. Cosigned by Joanne Bolaños MD at 03/15/2025 11:29 AM EDT Associated attestation - Joanne Bolaños MD - 03/15/2025 11:29 AM EDT 74 y/o M with h/o HTN, COPD/former smoker (quit in 2023), and hyperlipidemia, referred for severe MR. Exertional dyspnea and low energy for the last 6-12 months. No CP. Posterior prolapse and severe primary MR. LVEF 50% on MRI and 60% on TTE. MV surgery is recommended Class I for symptomatic severeMR. For primary MR, JIM (Mitraclip) is recommended (approved) only for high-risk patients. I thinkpatient will be a reasonable surgical candidate. Hopefully, it can be repaired. Will refer him to surgery evaluation. documented in this encounter Plan of Treatment Upcoming Encounters Date Type Department Care Team (Late st Contact Info) Description 05/10/2025 9:00 AM EDT Office Visit [facility] [address], [address] [place] [address] Khushbu Gordon MD [address] [place] [address] Scheduled Referrals Name Type Priority Associated Diagnoses Orde r Schedule Ambulatory referral to Cardiac Surgery Outpatient Referral Routine Nonrheumatic mitral valve regurgitation 1 Occurrences starting 03/15/2025 until 09/16/2026 documented as of this encounter Procedures Procedure Name Priority Date/Time Associated Diagnosis Comments N-TERMINAL PROBNP, PLASMA Routine 03/15/2025 10:54 AM EDT Nonrheumatic mitral valve regurgitation Heart failure, unspecified (CMS/HCC) CBC W/O DIFFERENTIAL Routine 03/15/2025 10:54 AM EDT Nonrheumatic mitral valve regurgitation BASIC METABOLIC PANEL, PLASMA Routine 03/15/2025 10:54 AM EDT Nonrheumatic mitral valve regurgitation ECG ADULT Routine 03/15/2025 10:51 AM EDT Nonrheumatic mitral valve regurgitation documented in this encounter Results * N-Terminal Probnp, Plasma (03/15/2025 10:54 AM EDT) N-Terminal, PROBNP, Plasma 699 0 - 899 pg/mL 03/15/2025 11:50 AM EDT [facility] Blood Venous blood specimen / Unknown Venipuncture / Unknown 03/15/2025 10:54 AM EDT 03/15/2025 11:13 AM EDT us Ana CHRISTIE LAB BLOOD ORDERABLES Fi nal Result [facility] [address] [place] [address] * Basic Metabolic Panel, Plasma (03/15/2025 10:54 AM EDT) Glucose, Plasma 92 74 - 99 mg/dL 03/15/2025 11:50 AM EDT [facility] BUN, Plasma 13 8 - 23 mg/dL 03/15/2025 11:50 AM EDT [facility] Creatinine, Plasma 0.89 0.70 - 1.20 mg/dL 03/15/2025 11:50 AM EDT [facility] BUN/Creatinine Ratio 15 03/15/2025 11:50 AM EDT [facility] Sodium, Plasma 139 136 - 145 mmol/L 03/15/2025 11:50 AM EDT [facility] Potassium, Plasma 3.9 3.6 - 4.9 mmol/L 03/15/2025 11:50 AM EDT [facility] Chloride, Plasma 103 97 - 107 mmol/L 03/15/2025 11:50 AM EDT [facility] CO2, Plasma 26 22 - 29 mmol/L 03/15/2025 11:50 AM EDT [facility] Anion Gap 10 6 - 16 mmol/L 03/15/2025 11:50 AM EDT [facility] Total Calcium, Plasma 9.1 8.9 - 10.2 mg/dL 03/15/2025 11:50 AM EDT [facility] eGFRcr 91.1 mL/min/1.7 3m*2 03/15/2025 11:50 AM EDT [facility] Comment:Reported eGFRcr in m L/min/1.73m2 is based the CKD-EPI 2020 equation that does not use a race coefficient. Blood Venous blood specimen / Unknown Venipuncture / Unknown 03/15/2025 10:54 AM EDT 03/15/2025 11:13 AM EDT us Ana CHRISTIE LAB BLOOD ORDERABLES Fi nal Result [facility] [address] [place] [address] * (ABNORMAL) CBC W/O Differential (03/15/2025 10:54 AM EDT) WBC Count 6.27 3.70 - 10.30 10*3/uL LAB HEMATOLOGY METHOD 03/15/2025 11:19 AM EDT [facility] RBC Count 4.59(L) 4.60 - 6.10 10*6/uL LAB HEMATOLOGY METHOD 03/15/2025 11:19 AM EDT [facility] HGB 13.3(L) 13.7 - 17.5 g/dL LAB HEMATOLOGY METHOD 03/15/2025 11:19 AM EDT [facility] HCT 39.9(L) 40.0 - 51.0 % LAB HEMATOLOGY METHOD 03/15/2025 11:19 AM EDT [facility] Platelet Count 157 155 - 369 10*3/uL LAB HEMATOLOGY METHOD 03/15/2025 11:19 AM EDT [facility] MCV 87 79 - 98 fL LAB HEMATOLOGY METHOD 03/15/2025 11:19 AM EDT [facility] MCH 29.0 26.0 - 32.0 pg LAB HEMATOLOGY METHOD 03/15/2025 11:19 AM EDT [facility] MCHC 33.3 30.7 - 35.5 g/dL LAB HEMATOLOGY METHOD 03/15/2025 11:19 AM EDT [facility] RDW 13.4 11.5 - 14.5 % LAB HEMATOLOGY METHOD 03/15/2025 11:19 AM EDT [facility] MPV 10.6 8.8 - 12.5 fL LAB HEMATOLOGY METHOD 03/15/2025 11:19 AM EDT [facility] nRBC 0.0 <=0.0 per 100 WBCs LAB HEMATOLOGY METHOD 03/15/2025 11:19 AM EDT [facility] Blood Venous blood specimen / Unknown Venipuncture / Unknown 03/15/2025 10:54 AM EDT 03/15/2025 11:08 AM EDT us Ana CHRISTIE LAB BLOOD ORDERABLES Fi nal Result [facility] [address] [place] [address] * ECG Adult (Now - Performed in your clinic) (03/15/2025 10:51 AM EDT) EKG DIAGNOSIS CLASS Borderline Normal MUSE ECG Ventricular Rate 48 BPM MUSE ECG Atrial Rate 48 BPM MUSE ECG SC Interval 168 ms MUSE ECG QRSD Interval 94 ms MUSE ECG QT Interval 440 ms MUSE ECG QTC Interval 393 ms MUSE ECG P Adams 40 degrees MUSE ECG R Adams 65 degrees MUSE ECG T Wave Adams 59 degrees MUSE ECG Diagnosis Sinus bradycardia with sinus arrhythmia MUSE ECG Diagnosis Otherwise normal ECG MUSE ECG Diagnosis MUSE ECG Diagnosis Confirmed by Orlando Rodriguez ([id number]) on 03/15/2025 5:10:54 PM MUSE ECG 03/15/2025 10:5 1 AM EDT 03/15/2025 5:10 PM EDT us Ana CHRISTIE ECG ORDERABLES Final R esult MUSE ECG documented in this encounter Visit Diagnoses Diagnosis Nonrheumatic mitral valve regurgitation- Primary Heart failure, unspecified (CMS/HCC) Heart failure, unspecified documented in this encounter Additional Health Concerns Assessment Noted Time PHQ-9 Depression Total Score: 0 03/15/20 25 10:15 AM EDT A fall risk assessment has been complete d for the patient 03/15/2025 10:16 AM EDT A Body Mass Index follow-up plan has been documented for the patient 03/15/2025 10:59 AM EDT documented as of this encounter Care Teams Network Relay Tester Relationship Specialty Start Date End Date Stefan Pérez MD [address] [place] [address] [address] [place] [address] PCP - General 12/08/21 documented as of this encounter
--- OUTSIDE RECORDS SUMMARY | 2025-03-29 11:20 | XMS_ITS | Encounter Summary ---
Author Organization [facility] Address [address] [id number] Care Team Providers Care Brass Wind Instrument Maker Name Role Phone Stefan Pérez MD Primary Care Provider [phone] Reason for Referral * Consultation (Routine) - Authorized Specialty Diagnoses / Procedures Referred By Maryuri lopez Referred To Contact Cardiology Diagnoses Nonrheumatic mitral (valve) insufficiency Khushbu Gordon MD [address] [address] Phone: tel: fax: Referral ID Status Reason Start Date Expiration Date Visits Requested Visits Authorized [id number] Authorized Specialty Services Required 03/31/2025 09/30/2026 1 1 Scheduling Instructions Needs Left Heart Cath within 2 Weeks * Imaging (Routine) - Closed Specialty Diagnoses / Procedures Referred By Maryuri lopez Referred To Contact Radiology Diagnoses Nonrheumatic mitral (valve) insufficiency Procedures CT Angio Abdomen Pelvis w Runoff Khushbu Gordon MD [address] [address] Phone: tel: fax: Referral ID Status Reason Start Date Expiration Date Visits Re quested Visits Authorized [id number] Closed 03/31/2025 09/30/2026 1 1 * Imaging (Routine) - Closed Specialty Diagnoses / Procedures Referred By Contac t Referred To Contact Radiology Diagnoses Nonrheumatic mitral (valve) insufficiency Procedures CT Angio Chest Khushbu Gordon MD [address] [address] Phone: tel: fax: Referral ID Status Reason Start Date Expiration Date Visits Re quested Visits Authorized [id number] Closed 03/31/2025 09/30/2026 1 1 * Imaging (Routine) - Closed Specialty Diagnoses / Procedures Referred By Contac t Referred To Contact Cardiology Diagnoses Nonrheumatic mitral (valve) insufficiency Suspected pulmonary hypertension Procedures VAS US Carotid Duplex Bilateral Khushbu Gordon MD [address] [address] Phone: tel: fax: Referral ID Status Reason Start Date Expiration Date V isits Requested Visits Authorized [id number] Closed Perform Procedure 03/31/2025 09/30/2026 1 1 * Imaging (Routine) - Pending Review Specialty Diagnoses / Procedures Referred By Contac t Referred To Contact Radiology Diagnoses Nonrheumatic mitral (valve) insufficiency Procedures CT Angio Chest Khushbu Gordon MD [address] [address] Phone: tel: fax: Referral ID Status Reason Start Date Expiration Date V isits Requested Visits Authorized [id number] Pending Review 03/31/2025 09/30/2026 1 1 Reason for Visit * Consultation (Routine) - Closed Specialty Diagnoses / Procedures Referred By Contac t Referred To Contact Cardiothoracic Surgery Diagnoses Nonrheumatic mitral valve regurgitation Ana Cornelius PA [address] [place] [address] Phone: tel: fax: [facility] Cardiothoracic [address], [address] [place] [address] Phone: tel:[phone] fax:[phone] Referral ID Status Reason Start Date Expiration Date V isits Requested Visits Authorized [id number] Closed Specialty Services Required 03/15/2025 09/14/2026 1 1 Encounter Details Date Type Department Care Team (Late st Contact Info) Description 03/29/2025 11:20 AM EDT Consult [facility] Cardiothoracic [address], [address] [place] [address] Khushbu Gordon MD [address] [facility] [address] [place] [address] Nonrheumatic mitral (valve) insufficiency (Primary Dx); Suspected pulmonary hypertension Social History Tobacco Use Types Packs/Day Years Used Date Smoking Tobacco: Former Cigarettes 1 30 Smokeless Tobacco: Never Alcohol Use Standard Drinks/Week Comments Not Currently 0 (1 standard drink = 0.6 oz pure alcohol) Hx ETOH abuse none x 15 years PHQ-2 Answer Date Recorded Patient Health Questionnaire-2 Score 0 03/29/2025 PHQ-9 Answer Date Recorded Patient Health Questionnaire-9 Score 0 03/15/2025 AUDIT-C Answer Date Recorded Q1: How often do you have a drink containing alcohol? Never 03/29/2025 Q2: How many drinks containi ng alcohol do you have on a typical day when you are drinking? Patient does not drink Q3: How often do you have si x or more drinks on one occasion? Never 03/29/2025 Sex and Gender Information Value Date Recorded Sex Assigned at Not on file Legal Sex Male 5:55 PM EDT Gender Identity Not on file Sexual Orientation Not on file documented as of this encounter Last Filed Vital Signs Vital Sign Reading Time Taken Comments Blood Pressure 135/75 03/29/2025 11:35 AM EDT Pulse 50 03/29/2025 11:49 AM EDT Temperature - - Respiratory Rate - - Oxygen Saturation 97% 03/29/2025 11:35 AM EDT Inhaled Oxygen Concentration - - Weight 88.3 kg (194 lb 8.9 oz) 03/29/2025 11:35 AM EDT Height 175.3 cm (5' 9 ) 03/29/2025 11:35 AM EDT Body Mass Index 28.73 03/29/2025 11:35 AM EDT documented in this encounter Functional Status * AUDIT-C Score Answer Date of Assessment Author 0 03/29/2025 11:47 AM EDT Luz Zayas * Question Answer Date of Assessment Author Q1: How often do you have a drink containing alcohol? Never 03/29/2025 11:47 AM EDT Mana Gibbons Q2: How many drinks containing alcohol do you have on a typical day when you are drinking? Patient does not drink 03/29/2025 11:47 AM EDT Luz Gibbons Q3: How often do you have six or more drinks on one occasion? Never 03/29/2025 11:47 AM EDT Mana Gibbons * Over the past 2 weeks, how often have you been bothered by any of the following problems? Question Answer Date of Assessment Author Little interest or pleasure in doing things Not at all 03/29/2025 11:48 AM JOELT Mana Gibbons Feeling down, depressed, or hopeless Not at all 03/29/2025 11:48 AM EDT Mana Gibbons Patient Health Questionnaire -2 Score 0 03/29/2025 11:48 AM EDT Mana Gibbons documented as of this encounter Miscellaneous Notes * Progress Notes - Jemal Obando MD - 03/29/2025 11:20 AM EDT Images from the original note were not included. Reason for visit / Chief Complaint: severe MR History of present illness: Jake Pacheco is a 75 y.o. 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 Bolaños in regards to severe symptomatic mitralregurgitation. Reports acute episode of aphasia in 05/2024 which was ultimately diagnosed as TIA/CVA from which hehas fully recovered that led to TTE demonstrating mod- severe mitral regurgitation. Subsequent VINOD in 06/2024 confirmed severe MR and CMR showed etiology secondary to Martha Class II posterior leaflet prolapse. Reports increased in fatigue and daytime somnolence over past year. Denies new or worsening cough, PND, orthopnea, chest pain, palpitations, or lower extremity edema. His chronic comorbid conditions that impact our treatment planning include: None NYHA Classification: Class II: Mild symptoms with ordinary activity. Active Problems: Patient Active Problem List Diagnosis Date Noted COPD (chronic obstructive pulmonary disease) ([facility]) 03/11/2025 Nonrheumatic mitral (valve) insufficiency 03/11/2025 TIA (transient ischemic attack) 03/11/2025 S/P total left hip arthroplasty 12/26/2021 Primary localized osteoarthritis of left hip 12/08/2021 HTN (hypertension) 11/29/2021 High cholesterol 11/29/2021 Gastroesophageal reflux disease 11/29/2021 Smoking 11/07/2021 Primary osteoarthritis of left hip 11/07/2021 Medical History: Past Medical History Pertinent Negatives[1] Surgical History: Surgical History[2] Social History: Tobacco: Tobacco Use: Medium Risk (03/15/2025) Patient History Smoking Tobacco Use: Former Smokeless Tobacco Use: Never Passive Exposure: Not on file Alcohol: Alcohol Use: Not on file Illicit drug use: Social History Substance and Sexual Activity Drug Use Never Family History: family history includes Cancer in his brother; Heart attack in his father; Heart disease in his father; shingles in his mother. Allergies: Allergies[3] Medications: Prior to Admission medications Medication Sig Start Date End Date Taking? Authorizing Provider acetaminophen (Tylenol) 500 MG tablet Take 2 tablets (1,000 mg total) by mouth every 8 (eight) hours if needed for mild pain. 12/09/21 Ronnie Thomas aspirin 81 MG EC tablet Take 1 tablet by mouth daily. Yasmani Munoz MD atorvastatin (Lipitor) 20 MG tablet Take 1 tablet by mouth daily. 01/28/25 Yasmani Munoz MD bisoprolol-hydroCHLOROthiazide (Ziac) 5-6.25 MG tablet 1 (one) time each day. 12/19/21 Yasmani Munoz MD clopidogrel (Plavix) 75 MG tablet Take by mouth daily. Yasmani Munoz MD gabapentin (Neurontin) 100 MG capsule Take 1 capsule (100 mg total) by mouth 3 (three) times a day. Patient not taking: Reported on 03/15/2025 12/20/21 Aubrey Purvis MD losartan (Cozaar) 100 MG tablet Take 1 tablet by mouth daily. 01/26/25 Yasmani Munoz MD meloxicam (Mobic) 15 MG tablet Take 1 tablet (15 mg total) by mouth 1 (one) time each day. Patient not taking: Reported on 03/15/2025 12/09/21 Ronnie Thomas omeprazole (PriLOSEC) [address] capsule Take 1 capsule (20 mg total) by mouth 1 (one) time each day.Do not crush or chew. Take for 4 weeks post-operatively. Patient not taking: Reported on 03/15/2025 12/09/21 Ronnie Thomas senna-docusate sodium (Senokot-S) 8.6-50 MG tablet Take 1 tablet by mouth 1 (one) time each day. 12/09/21 Ronnie Thomas tiZANidine (Zanaflex) 4 MG tablet 1 (one) time each day. 12/11/21 Yasmani Munoz MD traMADol (Ultram) 50 MG tablet Take 1 tablet (50 mg total) by mouth every 4 (four) hours if needed for severe pain. 12/09/21 Ronnie Thomas Physical exam: There were no vitals taken for this visit. Constitutional: well developed, well nourished, and in no acute distress Cardiac: Heart regular rate and rhythm Murmur(s)- 3/6 systolic at apex Abdomen: Soft, non-tender, normal bowel sounds; no bruits, organomegaly or masses. Musculoskeletal: normal strength, tone, and muscle mass, no deformities Psychiatric: oriented to time, place and person, mood and affect are within normal limits Neurologic: normal sensation and reflexes and motor intact Skin: [place], warm, well perfused Labs in last 18 hours: CBC WBC ?? Hb ?? Plt ?? Hct ?? ANC ?? INR ??, PTT ??, Anti-Xa ?? BMP Na ?? Cl ?? BUN ?? Glu ?? K ?? Co2 ?? Cr ?? Ca ?? iCa ?? Mg ??, Phos ?? Lactate ?? LFT AST ?? AlkPhos ?? T Prot ?? ALK ?? Bili ?? Alb ?? D.Bili ?? Imaging: CMR 06/2024 VINOD 06/2024 Cardiac Cath Results: None Impression: 75 year old male with severe symptomatic mitral regurgitation. Additional workup neededto evaluate his candidacy for surgical repair/replacement. Will arrange further studies and have return to clinic to further discuss. Plan: -CTA c/a/p with runoff -PFTs -cardiac cath -carotid U/S -RTC in 2wks [1] Past Medical History: Diagnosis Date Hypertension Osteoarthritis [2] Past Surgical History: Procedure Laterality Date APPENDECTOMY TOTAL HIP ARTHROPLASTY [3] No Known Allergies Cosigned by Khushbu Gordon MD at 04/07/2025 7:33 AM EDT Associated attestation - Khushbu Gordon MD - 04/07/2025 7:33 AM EDT I saw and evaluated the patient with the resident/fellow. I discussed the case with the resident/fellow and agree with the findings and plan as documented. documented in this encounter Plan of Treatment Upcoming Encounters Date Type Department Care Team (Late st Contact Info) Description 05/10/2025 9:00 AM EDT Office Visit [facility] Cardiothoracic [address], [address] [place] [address] Khushbu Gordon MD [address] [place] [address] Scheduled Orders Name Type Priority Associated Diagnoses Orde r Schedule CT Angio Chest Imaging Routine Nonrheumatic mitral (valve) insufficiency Expected: 04/14/2025 (Approximate), Expires: 10/02/2026 Scheduled Referrals Name Type Priority Associated Diagnoses Orde r Schedule Ambulatory referral to Cardiology Outpatient Referral Routine Nonrheumatic mitral (valve) insufficiency Expected: 03/31/2025 (Approximate), Expires: 10/02/2026 documented as of this encounter Results * VAS US Carotid Duplex Bilateral (04/12/2025 11:11 AM EDT) Anatomical Region Laterality Modality Head, Neck, Vascular Ultrasound Impressions 04/14/2025 12:12 AM EDT Right: No significant carotid plaque is demonstrated. Flow is present in the CCA, ICA, and ECA. ICA velocities do not demonstrate evidence of a hemodynamically significant stenosis (less than 50%). Left: No significant carotid plaque is demonstrated. Flow is present in the CCA, ICA, and ECA. ICA velocities do not demonstrate evidence of a hemodynamically significant stenosis (less than 50%). Vertebral artery flow is antegrade, bilaterally. Subclavian artery flow is multiphasic, bilaterally. COMMUNICATION: Per this written report. Preliminary report signed by Agapito Peña RVT on 04/12/2025 11:57 AM By electronically signing this report, I, the attending physician, attest that I have personally reviewed the images/data for the above examination(s) and I agree with the final edited report. Drafted by Agapito Peña RVT on 04/12/2025 11:55 AM Final report signed by Josephine Geller MD on 04/14/2025 12:12 AM Narrative 04/14/2025 12:12 AM EDT CLINICAL INDICATION: Cervical bruit TECHNIQUE: Non-invasive, real time duplex exam of the extracranial carotid circulation with Doppler ultrasonic waveform and spectral analysis was performed. COMPARISON: None FINDINGS: Right: CCA: 75 cm/s ECA: 57 cm/s ICA: 69, 24 cm/s; ICA/CCA ratio: 0.92 Vertebral A: 55 cm/s Subclavian A: 255 cm/s Left: CCA: 76 cm/s ECA: 54 cm/s ICA: 69, 23 cm/s; ICA/CCA ratio: 0.90 Vertebral A: 32 cm/s Subclavian A: 126 cm/s Procedure Note Josephine Geller MD - 04/14/2025 CLINICAL INDICATION: Cervical bruit TECHNIQUE: Non-invasive, real time duplex exam of the extracranial carotidcirculation with Doppler ultrasonic waveform and spectral analysis wasperformed. COMPARISON: None FINDINGS: Right: CCA: 75 cm/s ECA: 57 cm/s ICA: 69, 24 cm/s; ICA/CCA ratio: 0.92 Vertebral A: 55 cm/s Subclavian A: 255 cm/s Left: CCA: 76 cm/s ECA: 54 cm/s ICA: 69, 23 cm/s; ICA/CCA ratio: 0.90 Vertebral A: 32 cm/s Subclavian A: 126 cm/s IMPRESSION: Right: No significant carotid plaque is demonstrated. Flow is present inthe CCA, ICA, and ECA. ICA velocities do not demonstrate evidence of ahemodynamically significant stenosis (less than 50%). Left: No significant carotid plaque is demonstrated. Flow is present inthe CCA, ICA, and ECA. ICA velocities do not demonstrate evidence of ahemodynamically significant stenosis (less than 50%). Vertebral artery flow is antegrade, bilaterally. Subclavian artery flow is multiphasic, bilaterally. COMMUNICATION: Per this written report. Preliminary report signed by Agapito Peña RVT on 04/12/2025 11:57 AM By electronically signing this report, I, the attending physician, attestthat I have personally reviewed the images/data for the aboveexamination(s) and I agree with the final edited report. Drafted by Agapito Peña RVT on 04/12/2025 11:55 AM Final report signed by Josephine Geller MD on 04/14/2025 12:12 AM us Khushbu Gordon MD CV VASCULAR PROCEDURES Final R esult * (ABNORMAL) PFT (Full) (04/12/2025 10:43 AM EDT) [id number] 3.10(A) 5.01 - 8.64 L VYAIRE PFT FVC PRED 3.72 VYAIRE PFT FVC LLN 2.74 VYAIRE PFT FVCPREZSCORE -1.03 VYAIRE PFT FVCPRE%PRED 83 % % VYAIRE PFT FVC PREDAUTH US_Quanjer GLI (2011) VYAIRE PFT FVC Z-SCORE -1.03 VYAIRE PFT FEV1 PRE 2.29(A) 3.51 - 6.23 L VYAIRE PFT FEV1 PRED 2.82 VYAIRE PFT FEV1 LLN 2.01 VYAIRE PFT PUL0BGXYAGAWI -1.08 VYAIRE PFT FEV1_Pre%Pred 81 % % [facility]AIRE [facility]AUTJohnson [facility] (2011) VYAIRE PFT FEV1 Z-SCORE -1.08 VYAIRE PFT FEV1/FVC PRE 73.96 59.73 - 85.00 % VYAIRE PFT EUD0MLHACGF 76 VYAIRE PFT KTP4JUAHZE 62 VYAIRE PFT GJL3TJOZCFCIZSVH -0.26 VYAIRE PFT CLB1ODCMFC%PRED 97 % % VYAIRE PFT LLO1GRRREMES [facility] (2011) VYAIRE PFT YNJ8NETTWTHWX 0 VYAIRE PFT IJL07-49% PRE 1.69 1.37 - 6.00 L/s VYAIRE PFT XSK18-84%_Pred 2.14 VYAIRE PFT EFJ6930%LLN 0.89 VYAIRE PFT OOQ7778%PREZSCORE -0.51 VYAIRE PFT KBZ4870%PRE%PRED 79 % % VYAIRE PFT ELX3452%PREDSweetwater Hospital Association (2011) VYAIRE PFT PEF PRE 6.12(A) 8.59 - 15.60 L/s VYAIRE PFT PEF PRED 7.39 VYAIRE PFT PEF LLN 5.27 VYAIRE PFT PEFPREZSCORE -0.98 VYAIRE PFT PEFPRE%PRED 83 % % VYAIRE PFT PEF PREDAUT NHANES III (1998) VYAIRE PFT COIZDXQJHPBORFAF2SYE 17.81(A) 28.22 - 50.94 ml/(min* mmHg) VYAIRE PFT DLCOSINGLEBREATH PRED 23.25 VYAIRE PFT DLCOSINGLEBREATH LLN 17.01 VYAIRE PFT DLCOSINGLEBREATH Z-SCORE -1.42 VYAIRE PFT DLCOSINGLEBREATH % PRED 76.6 % VYAIRE PFT DLCOSINGLEBREATH PREDAUT Stanojevic TLCO GLI (2019) VYAIRE PFT DLCOSINGLEBREATH Z-SCORE -1.42 04/12/2025 10:40 AM EDT VYAIRE PFT EUVFARIXUXKVIQSJJ5UJ E 17.81(A) 28.22 - 50.94 ml/(min* mmHg) VYAIRE PFT DLCOCSINGLEBREATH PRED 23.25 VYAIRE PFT DLCOCSINGLEBREATH LLN 17.01 VYAIRE PFT DLCOCSINGLEBREATH Z-SCORE -1.42 VYAIRE PFT DLCOCSINGLEBREATH % PRED 76.6 % VYAIRE PFT DLCOCSINGLEBREATH PREDUN[facility] Stanojevic TLCO GLI (2019) VYAIRE PFT JMYKYR1EBR 3.09 2.70 - 4.72 ml/(min* mmHg*L) VYAIRE PFT DLCOVAPRED 4.07 VYAIRE PFT DLCOVALLN 3.00 VYAIRE PFT DLCOVAZSCORE -1.50 VYAIRE PFT DLCOVA%PRED 76.0 % VYAIRE PFT DLCOVAPREDAUTH Stanojevic TLCO GLI (2019) VYAIRE PFT DLCOVAZSCORE -1.50 04/12/2025 10:40 AM EDT VYAIRE PFT IFFKPNKLC0ACR 3.09 2.70 - 4.72 ml/(min* mmHg*L) VYAIRE PFT DLCOC SB/VA PRED 4.07 VYAIRE PFT DLCOC SB/VA LLN 3.00 VYAIRE PFT DLCOC SB/VA Z-SCORE -1.50 VYAIRE PFT DLCOC SB/VA % PRED 76.0 % VYAIRE PFT DLCOC SB/VA PREDAUT Stanojevic TLCO GLI (2019) VYAIRE PFT DLCOC SB/VA Z-SCORE -1.50 04/12 10:40 AM EDT VYAIRE PFT NHKPDFQTAWVIRK0IVP 5.76(A) 8.50 - 12.80 L VYAIRE PFT VASINGLEBREATH PRED 5.75 VYAIRE PFT VASINGLEBREATH LLN 4.62 VYAIRE PFT VASINGLEBREATH Z-SCORE 0.02 VYAIRE PFT VASINGLEBREATH % PRED 100.3 % VYAIRE PFT VASINGLEBREATH PREDAUT Stanojevic TLCO GLI (2019) VYAIRE PFT VASINGLEBREATH Z-SCORE 0.02 04/12/2025 10:40 AM EDT VYAIRE PFT RQBRSVOKOOVYBKL5LEN 2.91(A) 5.01 - 8.64 L VYAIRE PFT IVCSINGLEBREATH PRED 3.72 VYAIRE PFT IVCSINGLEBREATH LLN 2.74 VYAIRE PFT IVCSINGLEBREATH Z-SCORE -1.36 VYAIRE PFT IVCSINGLEBREATH % PRED 78.2 % VYAIRE PFT IVCSINGLEBREATH PREDAUT US_Quanjer GLI (2011) VYAIRE PFT CECIL% VCMAX PRE 93.74 % VYAIRE PFT TLC SB PRE 5.95(A) 9.06 - 13.98 L VYAIRE PFT TLCSINGLEBREATH PRED 6.44 VYAIRE PFT TLCSINGLEBREATH LLN 5.07 VYAIRE PFT TLCSINGLEBREATH Z-SCORE -0.58 VYAIRE PFT TLCSINGLEBREATH % PRED 92.5 % VYAIRE PFT TLCSINGLEBREATH PREDAUTK[facility] volumes GLI (2019)__ VYAIRE PFT HB PRE 14.60 g(Hb)/dL VYAIRE PFT SFY9XSU 6.92(A) 9.06 - 13.98 L VYAIRE PFT TLCPRED 6.44 VYAIRE PFT TLCLLN 5.07 VYAIRE PFT TLCULN 7.82 VYAIRE PFT TLCZSCORE 0.58 VYAIRE PFT TLC%PRED 107.5 % VYAIRE PFT TLCPREDAUT [facility] Lung volumes GLI (2019)__ VYAIRE PFT VC0PRE 3.12(A) 5.01 - 8.64 L VYAIRE PFT VCPRED 3.72 VYAIRE PFT VCLLN 2.74 VYAIRE PFT VCULN 4.72 VYAIRE PFT VCZSCORE -1.00 VYAIRE PFT VC%PRED 83.9 % VYAIRE PFT VCPREDAUT US_[facility]anjer GLI (2011) VYAIRE PFT IC0PRE 2.24(A) 3.46 - 6.44 L VYAIRE PFT ICPRED 2.88 VYAIRE PFT ICLLN 2.00 VYAIRE PFT ICULN 3.72 VYAIRE PFT IC Z-SCORE -1.20 VYAIRE PFT IC%PRED 77.9 % VYAIRE PFT ICPREDAUTKettering [facility] Lung volumes GLI (2019)__ VYAIRE PFT MGBOUAJZ7DAU 4.68(A) 4.83 - 9.56 L VYAIRE PFT FRCPLETH PRED 3.46 VYAIRE PFT FRCPLETH LLN 2.41 VYAIRE PFT FRCPLETH ULN 4.78 VYAIRE PFT FRCPLETH Z-SCORE 1.53 VYAIRE PFT FRCPLETH % PRED 135.1 % VYAIRE PFT FRCPLET PREDAUTKettering Health [facility] Lung volumes GLI (2019)__ VYAIRE PFT DIU1PAO 0.88 0.78 - 5.18 L VYAIRE PFT ERVPRED 1.06 VYAIRE PFT ERVLLN 0.33 VYAIRE PFT ERVULN 2.17 VYAIRE PFT ERV Z-SCORE -0.34 VYAIRE PFT ERV%PRED 82.8 % V[facility]AIRE [facility] ERVPREDC[facility] Lung volumes GLI (2019)__ VYAIRE PFT RV0PRE 3.80 2.60 - 6.70 L VYAIRE PFT RVPRED 2.36 VYAIRE PFT RVLLN 1.38 VYAIRE PFT RVULN 3.55 VYAIRE PFT RVZSCORE 1.95 VYAIRE PFT RV%PRED 160.7 % VYAIRE PFT RVPREDAUT [facility] Lung volumes GLI (2019)__ VYAIRE PFT RV%FQC7DMQ 54.87(A) 24.90 - 48.85 % VYAIRE PFT RV%TLCPRED 37 VYAIRE PFT RV%TLCLLN 25 VYAIRE PFT RV%TLCULN 49 VYAIRE PFT RV%TLCZSCORE 2.40 VYAIRE PFT RV%TLC%PRED 149.2 % VYAIRE PFT RV%TLCPREDAUTH [facility] Lung volumes GLI (2019)__ VYAIRE PFT Anatomical Region Laterality Modality PFT 04/12/2025 10:0 6 AM EDT Narrative 04/17/2025 12:33 PM EDT Pulmonary Function Testing Report Jake Pacheco 75 y.o. underwent pulmonary function testing today at the [facility]. The patient underwent spirometry, lung volumes by body plethysmography, and diffusion capacity testing testing. All tests were appropriately administered via ATS/ERS criteria. Spirometry: Normal spirometry Lung Volumes: Elevated RV/TLC, which is of uncertain clinical significance in the setting of normal spirometry. Diffusion Capacity: Test Quality: A. Data meets the highest standards for acceptability. Diffusion capacity uncorrected for Hb is normal. Trend: There are no prior studies for comparison. us Khushbu Gordon MD PFT ORDERABLES Final Result * CT Angio Abdomen Pelvis w Runoff (04/09/2025 1:32 PM EDT) Anatomical Region Laterality Modality Pelvis and lower extremeties Bilateral Com puted Tomography Impressions 04/11/2025 2:08 PM EDT Normal caliber thoracic aorta without dissection or intramural hematoma. Mild atherosclerosis in the bilateral superficial femoral arteries and tibial peroneal trunks causing mild stenosis. Double vessel runoff on the right with occlusion of the distal right anterior tibial artery. The fibular artery supplies collateral flow to the right foot. Double vessel runoff in the left lower extremity with occlusion of the distal anterior tibial artery. Reconstitution of flow to the distal left anterior tibial artery via collaterals from the fibular artery. The in the right bronchus, likely aspiration. 2 enlarged mediastinal lymph nodes which are possibly reactive. Recommend follow-up with contrast-enhanced chest CT in 3 months. Multiple basal predominant pulmonary nodules, some which demonstrate central granulomas. Attention to the noncalcified nodules also recommended on follow-up chest CT. CRITICAL RESULT: No COMMUNICATION: Per this written report. By electronically signing this report, I, the attending physician, attest that I have personally reviewed the images/data for the above examination(s) and agree with the final edited report. Drafted by RT Jeremy on 04/09/2025 2:01 PM Final report signed by Yonatan Hall MD on 04/11/2025 2:08 PM Narrative 04/11/2025 2:08 PM EDT CLINICAL INDICATION: Nonrheumatic mitral valve insufficiency TECHNIQUE: A CT angiogram of the chest, abdomen and pelvis with bilateral lower extremities was performed in arterial phase. A total of 150 mL of Omnipaque 350 was administered during the examination. Advanced 3D workstation manipulation and review of the data set was performed by the interpreting physician to further define anatomy and possible pathology. Images of areas of interest were created utilizing various techniques. These images were saved and transferred to PACS if significant. The imaging protocol used in this examination was optimized to achieve diagnostic quality with the lowest possible radiation dose in accordance with the principles of ALARA (As Low As Reasonably Achievable). COMPARISON: None Thoracic Aorta: Qualitative Description Of The Aorta: Thoracic aorta is normal in caliber. Mild motion artifact noted at the ascending aorta. No dissection or intramural hematoma. Sinus: L 34 mm, R 31 mm, N 33 mm Sinotubular Junction: 29 mm Mid Ascending Aorta: 35 mm Proximal Transverse Aorta (just proximal to the great vessels): 33 mm Mid Transverse Aortic Arch (Between the Origins of the Left Carotid and Left Subclavian artery): 31 mm Dista Transverse Aorta (at the isthmus): 31 mm Proximal Descending Thoracic Aorta: 29 mm Distal Descending Thoracic Aorta: 28 mm Abdominal aorta: Abdominal aorta is noted measuring up to 28 mm at the hiatus, 23 mm at the level of renal arteries, and 18 mm in the infrarenal aorta. No dissection or intramural hematoma. Visceral arteries: Celiac trunk, superior mesenteric and inferior mesenteric arteries are patent. Bilateral renal arteries are patent. Iliofemoral arteries: Bilateral common iliac arteries are patent. External iliac and hypogastric arteries are patent. Bilateral common femoral arteries are patent. Right leg: Deep profundus arteri is patent. Superficial femoral artery is patent with mild areas of stenosis due to calcified plaque. Popliteal artery is patent. Anterior tibial artery is patent and supplies the dorsal pedis artery. Focal stenosis in the proximal anterior tibial artery due to mixed calcified/noncalcified plaque. Focal stenosis in the tibial peroneal trunk due to mixed calcified/noncalcified plaque (series 11, image 294). Fibular artery is patent with distal collaterals supplying the plantar foot. Posterior tibial artery is patent proximally with occlusion distally. Left leg: Deep profundus artery is patent. Superficial femoral artery is patent with mild atherosclerosis distally causing mild stenosis. Popliteal artery is patent. Anterior abdominal artery is patent with mild atherosclerotic plaque proximally. Anterior tibial artery supplies a dorsal pedis artery. Tibial peroneal trunk is patent. Fibular artery is patent. Proximal anterior tibial artery is patent with occlusion distally and reconstitution distally via collaterals from the fibular artery. ANCILLARY FINDINGS: No axillary adenopathy. Small hiatal hernia Central airways are patent. Diffuse mild bronchial wall thickening. Debris noted in the right main bronchus. No pulmonary mass or consolidation. Multiple basal predominant noncalcified pulmonary nodules. Largest in the lower lobes measuring up to 10 mm (series 1, images 516). Several other pulmonary nodules demonstrate central calcifications, likely granuloma. Ill-defined groundglass nodules noted in the upper lobes. Right hilar lymph node is enlarged measuring up to 15 mm (series 1, image 299 and 495). No pericardial or pleural effusion. Lipoma noted within the scrotum noted. Procedure Note Yonatan Hall MD - 04/11/2025 CLINICAL INDICATION: Nonrheumatic mitral valve insufficiency TECHNIQUE: A CT angiogram of the chest, abdomen and pelvis with bilateral lowerextremities was performed in arterial phase. A total of 150 mL ofOmnipaque 350 was administered during the examination. Advanced 3Dworkstation manipulation and review of the data set was performed by theinterpreting physician to further define anatomy and possible pathology.Images of areas of interest were created utilizing various techniques.These images were saved and transferred to PACS if significant. The imaging protocol used in this examination was optimized to achievediagnostic quality with the lowest possible radiation dose in accordancewith the principles of ALARA (As Low As Reasonably Achievable). COMPARISON: None Thoracic Aorta: Qualitative Description Of The Aorta: Thoracic aorta is normal in caliber.Mild motion artifact noted at the ascending aorta. No dissection orintramural hematoma. Sinus: L 34 mm, R 31 mm, N 33 mm Sinotubular Junction: 29 mm Mid Ascending Aorta: 35 mm Proximal Transverse Aorta (just proximal to the great vessels): 33 mm Mid Transverse Aortic Arch (Between the Origins of the Left Carotid andLeft Subclavian artery): 31 mm Dista Transverse Aorta (at the isthmus): 31 mm Proximal Descending Thoracic Aorta: 29 mm Distal Descending Thoracic Aorta: 28 mm Abdominal aorta: Abdominal aorta is noted measuring up to 28 mm at thehiatus, 23 mm at the level of renal arteries, and 18 mm in the infrarenalaorta. No dissection or intramural hematoma. Visceral arteries: Celiac trunk, superior mesenteric and inferiormesenteric arteries are patent. Bilateral renal arteries are patent. Iliofemoral arteries: Bilateral common iliac arteries are patent. Externaliliac and hypogastric arteries are patent. Bilateral common femoralarteries are patent. Right leg: Deep profundus arteri is patent. Superficial femoral artery ispatent with mild areas of stenosis due to calcified plaque. Poplitealartery is patent. Anterior tibial artery is patent and supplies the dorsalpedis artery. Focal stenosis in the proximal anterior tibial artery dueto mixed calcified/noncalcified plaque. Focal stenosis in the tibialperoneal trunk due to mixed calcified/noncalcified plaque (series 11,image 294). Fibular artery is patent with distal collaterals supplyingthe plantar foot. Posterior tibial artery is patent proximally withocclusion distally. Left leg: Deep profundus artery is patent. Superficial femoral artery ispatent with mild atherosclerosis distally causing mild stenosis. Poplitealartery is patent. Anterior abdominal artery is patent with mildatherosclerotic plaque proximally. Anterior tibial artery supplies adorsal pedis artery. Tibial peroneal trunk is patent. Fibular artery ispatent. Proximal anterior tibial artery is patent with occlusion distallyand reconstitution distally via collaterals from the fibular artery. ANCILLARY FINDINGS: No axillary adenopathy. Small hiatal hernia Central airways are patent. Diffuse mild bronchial wall thickening. Debrisnoted in the right main bronchus. No pulmonary mass or consolidation. Multiple basal predominant noncalcified pulmonary nodules. Largest in thelower lobes measuring up to 10 mm (series 1, images 516). Several otherpulmonary nodules demonstrate central calcifications, likely granuloma.Ill-defined groundglass nodules noted in the upper lobes. Right hilar lymph node is enlarged measuring up to 15 mm (series 1, [id number] and 495). No pericardial or pleural effusion. Lipoma noted within the scrotum noted. IMPRESSION: Normal caliber thoracic aorta without dissection or intramural hematoma. Mild atherosclerosis in the bilateral superficial femoral arteries andtibial peroneal trunks causing mild stenosis. Double vessel runoff on the right with occlusion of the distal rightanterior tibial artery. The fibular artery supplies collateral flow to theright foot. Double vessel runoff in the left lower extremity with occlusion of thedistal anterior tibial artery. Reconstitution of flow to the distal leftanterior tibial artery via collaterals from the fibular artery. The in the right bronchus, likely aspiration. 2 enlarged mediastinal lymphnodes which are possibly reactive. Recommend follow-up withcontrast-enhanced chest CT in 3 months. Multiple basal predominant pulmonary nodules, some which demonstratecentral granulomas. Attention to the noncalcified nodules also recommendedon follow-up chest CT. CRITICAL RESULT: No COMMUNICATION: Per this written report. By electronically signing this report, I, the attending physician, airam I have personally reviewed the images/data for the aboveexamination(s) and agree with the final edited report. Drafted by RT Jeremy on 04/09/2025 2:01 PM Final report signed by Yonatan Hall MD on 04/11/2025 2:08 PM us Khushbu Gordon MD IMG CT PROCEDURES Final Result * CT Angio Chest (04/09/2025 1:32 PM EDT) Anatomical Region Laterality Modality Chest Computed Tomogra phy Impressions 04/11/2025 2:08 PM EDT Normal caliber thoracic aorta without dissection or intramural hematoma. Mild atherosclerosis in the bilateral superficial femoral arteries and tibial peroneal trunks causing mild stenosis. Double vessel runoff on the right with occlusion of the distal right anterior tibial artery. The fibular artery supplies collateral flow to the right foot. Double vessel runoff in the left lower extremity with occlusion of the distal anterior tibial artery. Reconstitution of flow to the distal left anterior tibial artery via collaterals from the fibular artery. The in the right bronchus, likely aspiration. 2 enlarged mediastinal lymph nodes which are possibly reactive. Recommend follow-up with contrast-enhanced chest CT in 3 months. Multiple basal predominant pulmonary nodules, some which demonstrate central granulomas. Attention to the noncalcified nodules also recommended on follow-up chest CT. CRITICAL RESULT: No COMMUNICATION: Per this written report. By electronically signing this report, I, the attending physician, attest that I have personally reviewed the images/data for the above examination(s) and agree with the final edited report. Drafted by RT Jeremy on 04/09/2025 2:01 PM Final report signed by Yonatan Hall MD on 04/11/2025 2:08 PM Narrative 04/11/2025 2:08 PM EDT CLINICAL INDICATION: Nonrheumatic mitral valve insufficiency TECHNIQUE: A CT angiogram of the chest, abdomen and pelvis with bilateral lower extremities was performed in arterial phase. A total of 150 mL of Omnipaque 350 was administered during the examination. Advanced 3D workstation manipulation and review of the data set was performed by the interpreting physician to further define anatomy and possible pathology. Images of areas of interest were created utilizing various techniques. These images were saved and transferred to PACS if significant. The imaging protocol used in this examination was optimized to achieve diagnostic quality with the lowest possible radiation dose in accordance with the principles of ALARA (As Low As Reasonably Achievable). COMPARISON: None Thoracic Aorta: Qualitative Description Of The Aorta: Thoracic aorta is normal in caliber. Mild motion artifact noted at the ascending aorta. No dissection or intramural hematoma. Sinus: L 34 mm, R 31 mm, N 33 mm Sinotubular Junction: 29 mm Mid Ascending Aorta: 35 mm Proximal Transverse Aorta (just proximal to the great vessels): 33 mm Mid Transverse Aortic Arch (Between the Origins of the Left Carotid and Left Subclavian artery): 31 mm Dista Transverse Aorta (at the isthmus): 31 mm Proximal Descending Thoracic Aorta: 29 mm Distal Descending Thoracic Aorta: 28 mm Abdominal aorta: Abdominal aorta is noted measuring up to 28 mm at the hiatus, 23 mm at the level of renal arteries, and 18 mm in the infrarenal aorta. No dissection or intramural hematoma. Visceral arteries: Celiac trunk, superior mesenteric and inferior mesenteric arteries are patent. Bilateral renal arteries are patent. Iliofemoral arteries: Bilateral common iliac arteries are patent. External iliac and hypogastric arteries are patent. Bilateral common femoral arteries are patent. Right leg: Deep profundus arteri is patent. Superficial femoral artery is patent with mild areas of stenosis due to calcified plaque. Popliteal artery is patent. Anterior tibial artery is patent and supplies the dorsal pedis artery. Focal stenosis in the proximal anterior tibial artery due to mixed calcified/noncalcified plaque. Focal stenosis in the tibial peroneal trunk due to mixed calcified/noncalcified plaque (series 11, image 294). Fibular artery is patent with distal collaterals supplying the plantar foot. Posterior tibial artery is patent proximally with occlusion distally. Left leg: Deep profundus artery is patent. Superficial femoral artery is patent with mild atherosclerosis distally causing mild stenosis. Popliteal artery is patent. Anterior abdominal artery is patent with mild atherosclerotic plaque proximally. Anterior tibial artery supplies a dorsal pedis artery. Tibial peroneal trunk is patent. Fibular artery is patent. Proximal anterior tibial artery is patent with occlusion distally and reconstitution distally via collaterals from the fibular artery. ANCILLARY FINDINGS: No axillary adenopathy. Small hiatal hernia Central airways are patent. Diffuse mild bronchial wall thickening. Debris noted in the right main bronchus. No pulmonary mass or consolidation. Multiple basal predominant noncalcified pulmonary nodules. Largest in the lower lobes measuring up to 10 mm (series 1, images 516). Several other pulmonary nodules demonstrate central calcifications, likely granuloma. Ill-defined groundglass nodules noted in the upper lobes. Right hilar lymph node is enlarged measuring up to 15 mm (series 1, image 299 and 495). No pericardial or pleural effusion. Lipoma noted within the scrotum noted. Procedure Note Yonatan Hall MD - 04/11/2025 CLINICAL INDICATION: Nonrheumatic mitral valve insufficiency TECHNIQUE: A CT angiogram of the chest, abdomen and pelvis with bilateral lowerextremities was performed in arterial phase. A total of 150 mL ofOmnipaque 350 was administered during the examination. Advanced 3Dworkstation manipulation and review of the data set was performed by theinterpreting physician to further define anatomy and possible pathology.Images of areas of interest were created utilizing various techniques.These images were saved and transferred to PACS if significant. The imaging protocol used in this examination was optimized to achievediagnostic quality with the lowest possible radiation dose in accordancewith the principles of ALARA (As Low As Reasonably Achievable). COMPARISON: None Thoracic Aorta: Qualitative Description Of The Aorta: Thoracic aorta is normal in caliber.Mild motion artifact noted at the ascending aorta. No dissection orintramural hematoma. Sinus: L 34 mm, R 31 mm, N 33 mm Sinotubular Junction: 29 mm Mid Ascending Aorta: 35 mm Proximal Transverse Aorta (just proximal to the great vessels): 33 mm Mid Transverse Aortic Arch (Between the Origins of the Left Carotid andLeft Subclavian artery): 31 mm Dista Transverse Aorta (at the isthmus): 31 mm Proximal Descending Thoracic Aorta: 29 mm Distal Descending Thoracic Aorta: 28 mm Abdominal aorta: Abdominal aorta is noted measuring up to 28 mm at thehiatus, 23 mm at the level of renal arteries, and 18 mm in the infrarenalaorta. No dissection or intramural hematoma. Visceral arteries: Celiac trunk, superior mesenteric and inferiormesenteric arteries are patent. Bilateral renal arteries are patent. Iliofemoral arteries: Bilateral common iliac arteries are patent. Externaliliac and hypogastric arteries are patent. Bilateral common femoralarteries are patent. Right leg: Deep profundus arteri is patent. Superficial femoral artery ispatent with mild areas of stenosis due to calcified plaque. Poplitealartery is patent. Anterior tibial artery is patent and supplies the dorsalpedis artery. Focal stenosis in the proximal anterior tibial artery dueto mixed calcified/noncalcified plaque. Focal stenosis in the tibialperoneal trunk due to mixed calcified/noncalcified plaque (series 11,image 294). Fibular artery is patent with distal collaterals supplyingthe plantar foot. Posterior tibial artery is patent proximally withocclusion distally. Left leg: Deep profundus artery is patent. Superficial femoral artery ispatent with mild atherosclerosis distally causing mild stenosis. Poplitealartery is patent. Anterior abdominal artery is patent with mildatherosclerotic plaque proximally. Anterior tibial artery supplies adorsal pedis artery. Tibial peroneal trunk is patent. Fibular artery ispatent. Proximal anterior tibial artery is patent with occlusion distallyand reconstitution distally via collaterals from the fibular artery. ANCILLARY FINDINGS: No axillary adenopathy. Small hiatal hernia Central airways are patent. Diffuse mild bronchial wall thickening. Debrisnoted in the right main bronchus. No pulmonary mass or consolidation. Multiple basal predominant noncalcified pulmonary nodules. Largest in thelower lobes measuring up to 10 mm (series 1, images 516). Several otherpulmonary nodules demonstrate central calcifications, likely granuloma.Ill-defined groundglass nodules noted in the upper lobes. Right hilar lymph node is enlarged measuring up to 15 mm (series 1, [id number] and 495). No pericardial or pleural effusion. Lipoma noted within the scrotum noted. IMPRESSION: Normal caliber thoracic aorta without dissection or intramural hematoma. Mild atherosclerosis in the bilateral superficial femoral arteries andtibial peroneal trunks causing mild stenosis. Double vessel runoff on the right with occlusion of the distal rightanterior tibial artery. The fibular artery supplies collateral flow to theright foot. Double vessel runoff in the left lower extremity with occlusion of thedistal anterior tibial artery. Reconstitution of flow to the distal leftanterior tibial artery via collaterals from the fibular artery. The in the right bronchus, likely aspiration. 2 enlarged mediastinal lymphnodes which are possibly reactive. Recommend follow-up withcontrast-enhanced chest CT in 3 months. Multiple basal predominant pulmonary nodules, some which demonstratecentral granulomas. Attention to the noncalcified nodules also recommendedon follow-up chest CT. CRITICAL RESULT: No COMMUNICATION: Per this written report. By electronically signing this report, I, the attending physician, airam I have personally reviewed the images/data for the aboveexamination(s) and agree with the final edited report. Drafted by RT Jeremy on 04/09/2025 2:01 PM Final report signed by Yonatan Hall MD on 04/11/2025 2:08 PM Khushbu Gordon MD IMG CT PROCEDURES Final Result documented in this encounter Visit Diagnoses Diagnosis Nonrheumatic mitral (valve) insufficiency- Primary Suspected pulmonary hypertension Nonrheumatic mitral (valve) insufficiency Nonrheumatic mitral (valve) insufficiency Nonrheumatic mitral (valve) insufficiency Suspected pulmonary hypertension documented in this encounter Additional Health Concerns Assessment Noted Time PHQ-9 Depression Total Score: 0 03/15/20 25 10:15 AM EDT A fall risk assessment has been complete d for the patient 03/29/2025 11:48 AM EDT A Body Mass Index follow-up plan has been documented for the patient 04/07/2025 7:35 AM EDT documented as of this encounter Care Teams [employer] Relationship Specialty Start Date End Date Stefan Pérez MD [address] [place] [address] [address] [facility] PCP - General 12/08/21 documented as of this encounter
--- OUTSIDE RECORDS SUMMARY | 2025-04-09 08:05 | XMS_ITS | Encounter Summary ---
Author Organization [facility] Address [address] [place] [address] Care Team Providers Care Communication Specialist Name Role Phone Stefan Pérez MD Primary Care Provider [phone] Reason for Visit * Auth/Cert (Routine) Specialty Diagnoses / Procedures Referred By Maryuri t Referred To Contact Diagnoses Nonrheumatic mitral valve regurgitation Encounter for preprocedural cardiovascular examination Heart failure, unspecified HF chronicity, unspecified heart failure type (CMS/HCC) Nonrheumatic mitral valve regurgitation [I34.0] Encounter for preprocedural cardiovascular examination [Z01.810] Heart failure, unspecified HF chronicity, unspecified heart failure type (CMS/HCC) [I50.9] Procedures [facility] C[facility] PLACE/CORONARY ANGIO, IMG SUPER/INTERP Coronary angiography Joanne Bolaños MD [address] [place] [address] Phone: tel: fax: [facility] [address] [place] [address] Phone: tel: Referral ID Status Reason Start Date Expiration Date Visits Re quested Visits Authorized [id number] 1 1 Encounter Details Date Type Department Care Team (Latest Contact Info) Description 04/09/2025 8:05 AM EDT - 04/09/2025 2:27 PM EDT Hospital Encounter [facility] [employer] [facility] [employer] [address] [place] [address] Joanne Bolaños MD [address] [place] [address] Nonrheumatic mitral valve regurgitation; Encounter for preprocedural cardiovascular examination; Heart failure, unspecified HF chronicity, unspecified heart failure type ([facility]) Discharge Disposition: Home or Self Care Social History Tobacco Use Types Packs/Day Years Used Date Smoking Tobacco: Former Cigarettes 1 30 Smokeless Tobacco: Never Alcohol Use Standard Drinks/Week Comments Not Currently 0 (1 standard drink = 0.6 oz pure alcohol) Hx ETOH abuse none x 15 years PHQ-2 Answer Date Recorded Patient Health Questionnaire-2 Score 0 04/12/2025 PHQ-9 Answer Date Recorded Patient Health Questionnaire-9 Score 0 03/15/2025 AUDIT-C Answer Date Recorded Q1: How often do you have a drink containing alcohol? Never 04/12/2025 Q2: How many drinks containi ng alcohol do you have on a typical day when you are drinking? Patient does not drink Q3: How often do you have si x or more drinks on one occasion? Never 04/12/2025 Sex and Gender Information Value Date Recorded Sex Assigned at Not on file Legal Sex Male 5:55 PM EDT Gender Identity Not on file Sexual Orientation Not on file documented as of this encounter Last Filed Vital Signs Vital Sign Reading Time Taken Comments Blood Pressure 148/83 04/09/2025 12:00 PM EDT Pulse 43 04/09/2025 12:00 PM EDT Temperature 36.6 C (97.8 F) 04/09/2025 9:33 AM EDT Respiratory Rate 16 04/09/2025 12:00 PM EDT Oxygen Saturation 97% 04/09/2025 12:00 PM EDT Inhaled Oxygen Concentration - - Weight 88 kg (194 lb 0.1 oz) 04/09/2025 8:26 AM EDT Height 175.3 cm (5' 9 ) 04/09/2025 8:26 AM EDT Body Mass Index 28.65 04/09/2025 8:26 AM EDT documented in this encounter Functional Status * AUDIT-C Score Answer Date of Assessment Author 0 04/12/2025 11:38 AM EDT Luz Zayas * Question Answer Date of Assessment Author Q1: How often do you have a drink containing alcohol? Never 04/12/2025 11:38 AM EDT Mana Gibbons Q2: How many drinks containing alcohol do you have on a typical day when you are drinking? Patient does not drink 04/12/2025 11:38 AM Luz Gomez Q3: How often do you have six or more drinks on one occasion? Never 04/12/2025 11:38 AM Mana Gomez * Over the past 2 weeks, how often have you been bothered by any of the following problems? Question Answer Date of Assessment Author Little interest or pleasure in doing things Not at all 04/12/2025 11:39 AM Mana Gomez Feeling down, depressed, or hopeless Not at all 04/12/2025 11:39 AM Mana Gomez Patient Health Questionnaire -2 Score 0 04/12/2025 11:39 AM Mana Gomez documented as of this encounter Medications at Time of Discharge acetaminophen (Tylenol) 500 MG tablet Take 2 tablets (1,000 mg total) by mouth every 8 (eight) hours if needed for mild pain. 100 tablet 1 12/09/2021 aspirin 81 MG EC tablet Take 1 tablet by mouth daily. atorvastatin (Lipitor) 20 MG tablet Take 1 tablet by mouth daily. 01/28/2025 bisoprolol-hydroC HLOROthiazide (Ziac) 5-6.25 MG tablet 1 (one) time each day. 12/19/2021 clopidogrel (Plavix) 75 MG tablet Take by mouth daily. gabapentin (Neurontin) 100 MG capsule Take 1 capsule (100 mg total) by mouth 3 (three) times a day. 30 capsule 12/20/2021 losartan (Cozaar) 100 MG tablet Take 1 tablet by mouth daily. 01/26/2025 meloxicam (Mobic) 15 MG tablet Take 1 tablet (15 mg total) by mouth 1 (one) time each day. 30 tablet 12/09/2021 omeprazole (PriLOSEC) [address] capsule Take 1 capsule (20 mg total) by mouth 1 (one) time each day. Do not crush or chew. Take for 4 weeks post-operative ly. 30 capsule 12/09/2021 senna-docusate sodium (Senokot-S) 8.6-50 MG tablet Take 1 tablet by mouth 1 (one) time each day. 30 tablet 12/09/2021 tiZANidine (Zanaflex) 4 MG tablet 1 (one) time each day. 12/11/2021 traMADol (Ultram) 50 MG tablet Take 1 tablet (50 mg total) by mouth every 4 (four) hours if needed for severe pain. 60 tablet 12/09/2021 documented as of this encounter Miscellaneous Notes * Nursing Note - Supa Delgado RN - 04/09/2025 1:14 PM EDT Pt received verbal and written discharge instructions with family at bedside. Right radial access site is clean dry and intact. No bleeding or hematoma noted. Vital signs stable, pain denied. No shortness of breath. PIV left in for CT scan, CT will remove IV. Patient able to dress self and ambulatewithout complication. Education reinforced that pt is not to drive for 24 hours. Pt and family verbalize understanding. Education also provided on importance of taking medications. Information sheetsprovided and highlighted. * [facility] - Supa Delgado RN - 04/09/2025 12:18 PM EDT 637 After TR Band Removal How do I care for myself at home? Medicines: ? Keep taking all your prescribed medicines, unless you heart doctor gives different orders. ? Do not take Metformin or Glucophage for 48 hours, unless you doctor says to take them. Activity: ? Do not drive yourself home from the hospital. ? Do not bend or strain your wrist. Avoid activities like knitting or using the computer. ? For 48 hours, avoid strenuous activities. This means no heavy work or lifting, driving a standardshift car, or vigorous sports. ? Do not lift anything heavier than a gallon of milk with the affected arm for the next week. Dressing: ? You may remove the dressing after 24 hours. Replace it with a regular Band-Aid. ? Leave the Band-Aid on another day. ? You may see a little blood on the Band-Aid. This is normal. Showers and baths: ? You may shower the next day. After your shower, pat the wound dry and cover with a Band-Aid. ? For 3 days, do not soak in a bath tub or soak the wound in a pool or hot tub. Bruising: For a couple weeks, you may have a small bruise or lump near the wound. This is normal. What if I start to bleed? If you have a little bleeding from the wound: Sit down right away. Put firm pressure to the wound for 10 minutes. Your nurse will show you how to do this. If the bleeding stops: Sit quietly and do not move the affected arm for 2 hours. Tell your doctor as soon as you can. If the bleeding does not stop after 10 minutes, or if there is a lot blood or spurting: HOLD firm pressure and call 911 right away. [address] not drive yourself to the hospital. Just sit or lie down and hold firm pressure. When do I follow up with my doctor? We will schedule a time for you to see the doctor in the clinic. When should I call the doctor? Call your doctor right away if you have any of these: ? Changes in the bruise or lump ? Redness near the wound ? Drainage from the wound ? Increased pain or swelling near the wound ? Numbness in your arm or wrist If you cannot contact your doctor, please go to the nearest emergency department. * Nursing Note - Supa Delgado RN - 04/09/2025 10:14 AM EDT Pt arrived back to prep and recovery after [facility]. Pt is aaox4 GCS 15. While reviewing home care instructions with patient and family, patients S/O advised that she does not typically drive. Patient andS/O were educated that patient would need a light truck driver due to having sedation and having an arterial stick. All transport options were reviewed with patient and S/O. Patient refuses to go to D/C lounge, says they do not have neighbors or family to come and get them. They do not wish to take a taxi or uber as they do not have a way to return to get their vehicle. Provider Yari Hernandes at bedside and witnesses interaction. S/O advises she will drive home from procedure. Education reinforced on the importance of patient not driving home due to sedation and artrial stick. Patient and S/O understand and provide verbal understanding as well as confirmation that S/O willdive home. * Pre-Sedation Documentation - Joanne Bolaños MD - 04/09/2025 8:35 AM EDT Images from the original note were not included. Cardiology Pre-procedural Assessment And Sedation Plan Indication for procedure: Diagnoses of Nonrheumatic mitral valve regurgitation, Encounter for preprocedural cardiovascular examination, and Heart failure, unspecified HF chronicity, unspecified heartfailure type (CMS/HCC) were pertinent to this visit. Planned Procedure: coronary angiogram Relevant past medical history: HTN, COPD/former smoker (quit in 2023), and hyperlipidemia, HF Relevant review of systems: NA Relevant Labs: Lab Results Component Value Date CREATININE 0.89 03/15/2025 EGFR 91.1 03/15/2025 Planned Sedation/Anesthesia: Moderate Airway assessment: normal Mallampati Score: II (hard and soft palate, upper portion of tonsils anduvula visible) ASA: ASA 3 - Patient with moderate systemic disease with functional limitations Directed physical examination: Constitutional: Appearance: Normal appearance. He is well-developed. HENT: Head: Normocephalic and atraumatic. Neck: Thyroid: No thyromegaly. Vascular: No carotid bruit or JVD. Cardiovascular: Rate and Rhythm: Normal rate and regular rhythm. Pulses: Normal pulses. Heart sounds: Murmur heard. Pulmonary: Effort: Pulmonary effort is normal. Breath sounds: Normal breath sounds. Abdominal: General: Abdomen is flat. Palpations: Abdomen is soft. Musculoskeletal: General: Normal range of motion. Right lower leg: No edema. Left lower leg: No edema. Skin: General: Skin is warm and dry. Capillary Refill: Capillary refill takes less than 2 seconds. Findings: Rash present. No bruising. Neurological: General: No focal deficit present. Mental Status: He is alert and oriented to person, place, and time. Mental status is at baseline. Psychiatric: Mood and Affect: Mood normal. Behavior: Behavior normal. Benefits, risks and alternatives of procedure and planned sedation have been discussed with the patient and/or their senior sales representative. All questions answered and they agree to proceed. * H&P - Joanne Bolaños MD - 04/09/2025 8:33 AM EDT Subjective History Of Present Illness Jake Pacheco is a 75 y.o. male with h/o HTN, COPD/former smoker (quit in 2023), and hyperlipidemia, here for pre-ope coronary angiogram for planned surgery for severe MR. Exertional dyspnea and low energy for the last 6-12 months. No CP. Posterior prolapse and severe primary MR. LVEF 50% on MRI and 60% on TTE. Medical/Surgical/Social/Family History I have reviewed and updated the patient history. Travel History Relevant International Travel History: Travel Screening No screening recorded since 04/08/25 0805 Travel History Travel since 03/09/25 No documented travel since 03/09/25 Allergies Patient has no known allergies. Medications Current Medications[1] Objective Review of Systems Constitutional: Positive for fatigue. Eyes: Negative. Respiratory: Positive for shortness of breath. Cardiovascular: Negative. Gastrointestinal: Negative. Musculoskeletal: Negative. Skin: Negative. Neurological: Negative. Psychiatric/Behavioral: Negative. Physical Exam Constitutional: Appearance: Normal appearance. He is well-developed. HENT: Head: Normocephalic and atraumatic. Neck: Thyroid: No thyromegaly. Vascular: No carotid bruit or JVD. Cardiovascular: Rate and Rhythm: Normal rate and regular rhythm. Pulses: Normal pulses. Heart sounds: Murmur heard. Pulmonary: Effort: Pulmonary effort is normal. Breath sounds: Normal breath sounds. Abdominal: General: Abdomen is flat. Palpations: Abdomen is soft. Musculoskeletal: General: Normal range of motion. Right lower leg: No edema. Left lower leg: No edema. Skin: General: Skin is warm and dry. Capillary Refill: Capillary refill takes less than 2 seconds. Findings: Rash present. No bruising. Neurological: General: No focal deficit present. Mental Status: He is alert and oriented to person, place, and time. Mental status is at baseline. Psychiatric: Mood and Affect: Mood normal. Behavior: Behavior normal. Last Recorded Vitals Blood pressure (!) 156/85, pulse 62, temperature 36.7 ??C (98.1 ??F), temperature source Oral, resp. rate 12, height 1.753 m (5' 9 ), weight 88 kg (194 lb 0.1 oz), SpO2 93%. Results Review I have reviewed the latest lab and imaging results. Assessment & Plan Nonrheumatic mitral valve regurgitation Encounter for preprocedural cardiovascular examination Heart failure Jake Pacheco is a 75 y.o. male with h/o HTN, COPD/former smoker (quit in 2023), and hyperlipidemia, here for pre-ope coronary angiogram for planned surgery for severe MR. Exertional dyspnea and low energy for the last 6-12 months. No CP. Posterior prolapse and severe primary MR. LVEF 50% on MRI and 60% on TTE. - Proceed with coronary angiogram via right radial access - No contrast allergy - All questions were answered. Medically Ready for Discharge:Anticipated Today [1] Current Facility-Administered Medications Medication Dose Route Frequency Provider Last Rate Last Admin sodium chloride 0.9 % flush 10 mL 10 mL Intravenous q12h Yari Hernandes MD And sodium chloride 0.9 % flush 10 mL 10 mL Intravenous PRN Yari Hernandes MD sodium chloride 0.9 % flush 10 mL 10 mL Intravenous q12h Yari Hernandes MD And sodium chloride 0.9 % flush 10 mL 10 mL Intravenous PRN Yari Hernandes MD documented in this encounter Plan of Treatment Upcoming Encounters Date Type Department Care Team (Late st Contact Info) Description 05/10/2025 9:00 AM EDT Office Visit [facility] Cardioth[facility]acic [address], [address] [place] [address] Khushbu Gordon MD [address] [place] [address] documented as of this encounter Procedures Procedure Name Priority Date/Time Associated Diagnosis Comments CORONARY ANGIOGRAPHY Routine 04/09/2025 9:22 AM EDT Nonrheumatic mitral valve regurgitation Encounter for preprocedural cardiovascular examination Heart failure, unspecified HF chronicity, unspecified heart failure type ([facility]) CBC W/O DIFFERENTIAL STAT 04/09/2025 8:45 AM EDT BASIC METABOLIC PANEL, PLASMA STAT 04/09/2025 8:45 AM EDT POCT CREATININE ISTAT UNSOLICITED RESULTS Routine 04/09/2025 8:43 AM EDT documented in this encounter Results * CORONARY ANGIOGRAPHY (04/09/2025 9:22 AM EDT) Anatomical Region Laterality Modality Other Narrative 04/10/2025 8:26 AM EDT 75 y.o. 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 Nonobstructive CAD, would not recommend CABG at time of surgery. Medical management with aspirin and statin as tolerated. 2. Planned same-day discharge. 3. Vascular access and post-cardiac catheterization care per protocol. 4. Comprehensive cardiovascular risk factor reduction including weight loss, dietary counseling, tobacco cessation, glycemic control, management of hypertension and dyslipidemia, as applicable. Procedure Details After informed consent was obtained, the patient was brought to the cardiac catheterization laboratory. A time out was done to confirm the correct patient, site and procedure. The patient's right wrist was prepped and draped in sterile fashion. The skin overlying the patient's right radial region was anesthetized with 1% lidocaine. Using modified Seldinger technique a 21-gauge micropuncture needle was used to puncture the right radial artery, and 0.021 guidewire was advanced into the radial artery without difficulty. A 6F long sheath was advanced over a guidewire and flushed. At that time a cocktail of heparin and nitroglycerin was given through the radial sheath. A 5F JR4 and JL3.5 catheters were advanced into the ascending aorta over a 0.035 J-tipped guidewire. Selective left and right coronary arteriography was then carried out in a variety of projections using small amounts of isosmolar contrast material, which was injected by hand. The catheter was then withdrawn. A TR band was placed, and the radial artery introducer was removed. The TR band was inflated with 12cc of air. The patient was transferred back to the laboratory analyst holding area in good condition. Coronary Findings Diagnostic Dominance: Right Left Main: Large caliber vessel which originates from the left coronary cusp and bifurcates giving rise to the left anterior descending and left circumflex arteries. Angiographically normal vessel. Left Anterior Descending: Large caliber vessel which provides four diagonal branches prior to terminating at the apex. Mid LAD after bifurcation of D2 with focal 30% narrowing. Remainder of the vessel with diffuse luminal irregularities. Left Circumflex: Large caliber vessel which provides one large and one small marginal branch and a moderate size branching PL prior to terminating in the AV groove. OM1 with focal ostial 50% stenosis. Remainder of the vessel with diffuse luminal irregularities. Right Coronary Artery: Large caliber vessel which originates from the right coronary cusp and is dominant for posterior circulation providing an acute marginal branch, the PDA, and a small PL system. Mild luminal irregularities throughout the vessel. Intervention No interventions have been documented. us Joanne Bolaños MD CV CARDIAC CATH PROCEDURES [facility] Result * (ABNORMAL) Basic metabolic panel (04/09/2025 8:45 AM EDT) Glucose, Plasma 95 74 - 99 mg/dL 04/09/2025 9:20 AM EDT [facility] BUN, Plasma 14 8 - 23 mg/dL 04/09/2025 9:20 AM EDT [facility] Creatinine, Plasma 0.86 0.70 - 1.20 mg/dL 04/09/2025 9:20 AM EDT [facility] BUN/Creatinine Ratio 16 04/09/2025 9:20 AM EDT [facility] Sodium, Plasma 139 136 - 145 mmol/L 04/09/2025 9:20 AM EDT [facility] Potassium, Plasma 3.8 3.6 - 4.9 mmol/L 04/09/2025 9:20 AM EDT [facility] Chloride, Plasma 103 97 - 107 mmol/L 04/09/2025 9:20 AM EDT [facility] CO2, Plasma 26 22 - 29 mmol/L 04/09/2025 9:20 AM EDT [facility] Anion Gap 10 6 - 16 mmol/L 04/09/2025 9:20 AM EDT [facility] Total Calcium, Plasma 8.8(L) 8.9 - 10.2 mg/dL 04/09/2025 9:20 AM EDT [facility] eGFRcr 91.4 mL/min/1.7 3m*2 04/09/2025 9:20 AM EDT [facility] Comment:Reported eGFRcr in m L/min/1.73m2 is based the CKD-EPI 2020 equation that does not use a race coefficient. Blood Venous blood specimen / Unknown Venipuncture / Unknown 04/09/2025 8:45 AM EDT 04/09/2025 8:51 AM EDT us Joanne Bolaños MD LAB BLOOD ORDERABLES Final Res ult [facility] [address] [place] [address] * (ABNORMAL) Hemogram (CBC) (04/09/2025 8:45 AM EDT) WBC Count 7.08 3.70 - 10.30 10*3/uL LAB HEMATOLOGY METHOD 04/09/2025 9:12 AM EDT [facility] RBC Count 4.52(L) 4.60 - 6.10 10*6/uL LAB HEMATOLOGY METHOD 04/09/2025 9:12 AM EDT [facility] HGB 13.0(L) 13.7 - 17.5 g/dL LAB HEMATOLOGY METHOD 04/09/2025 9:12 AM EDT [facility] HCT 38.9(L) 40.0 - 51.0 % LAB HEMATOLOGY METHOD 04/09/2025 9:12 AM EDT [facility] Platelet Count 170 155 - 369 10*3/uL LAB HEMATOLOGY METHOD 04/09/2025 9:12 AM EDT [facility] MCV 86 79 - 98 fL LAB HEMATOLOGY METHOD 04/09/2025 9:12 AM EDT [facility] MCH 28.8 26.0 - 32.0 pg LAB HEMATOLOGY METHOD 04/09/2025 9:12 AM EDT [facility] MCHC 33.4 30.7 - 35.5 g/dL LAB HEMATOLOGY METHOD 04/09/2025 9:12 AM EDT [facility] RDW 13.2 11.5 - 14.5 % LAB HEMATOLOGY METHOD 04/09/2025 9:12 AM EDT [facility] MPV 10.8 8.8 - 12.5 fL LAB HEMATOLOGY METHOD 04/09/2025 9:12 AM EDT [facility] nRBC 0.0 <=0.0 per 100 WBCs LAB HEMATOLOGY METHOD 04/09/2025 9:12 AM EDT [facility] Blood Venous blood specimen / Unknown Venipuncture / Unknown 04/09/2025 8:45 AM EDT 04/09/2025 8:50 AM EDT us Joanne Bolaños MD LAB BLOOD ORDERABLES Final Res ult [facility] [address] [place] [address] * POCT creatinine (04/09/2025 8:43 AM EDT) Creatinine, Point of Care 0.9 0.7 - 1.2 mg/dL 04/09/2025 8:47 AM EDT [facility] POCT eGFR 90 mL/min/1. 73m*2 04/09/2025 8:47 AM EDT [facility] Wet Process Operator ID Ruth Leija 04/09/2025 8:47 AM EDT [facility] Device ID [id number] 04/09/2025 8:47 AM EDT [facility] Comment 04/09/2025 8:47 AM EDT [facility] Comment:Testing performed on i-STAT at the point of care. Reported eGFRcr in mL/min/1.73m2 is based the CKD-EPI 2020 equation that does not use a race coefficient. Blood Venous blood specimen / Unknown 04/09/2025 8:43 AM EDT 04/09/2025 8:47 AM EDT Joanne Bolaños MD LAB POINT OF CARE TE ST DOCKED DEVICE UNSOLICITED RESULTS Final Result [facility] [address] [facility] [address] [place] [address] documented in this encounter Visit Diagnoses Diagnosis Nonrheumatic mitral valve regurgitation Encounter for preprocedural cardiovascular examination Heart failure, unspecified HF chronicity, unspecified heart failure type (CMS/HCC) Nonrheumatic mitral valve regurgitation Encounter for preprocedural cardiovascular examination Heart failure, unspecified HF chronicity, unspecified heart failure type (CMS/HCC) documented in this encounter Admitting Diagnoses Diagnosis Nonrheumatic mitral valve regurgitation Encounter for preprocedural cardiovascular examination Heart failure Unspecified heart failure documented in this encounter Administered Medications Inactive Administered Medications - up to 3 most recent administrations Medication Order MAR Action Action Date Dose Rate Site acetaminophen (Tylenol) tablet 650 mg 650 mg, Oral, Every 4 hours PRN, Starting on Sat04/09/25 at 1049, Until Sat04/09/25 at 1627, Routine, Recovery(Phase II-Outpatient)/On Unit(Inpatient), mild pain, fever aspirin chewable tablet 324 mg 324 mg, Oral, Daily, First dose on Sat04/09/25 at 0930, Until Discontinued, Routine Given 04/09/2025 8:44 AM EDT 324 mg sodium chloride 0.9 % flush 10 mL 10 mL, Intravenous, Every 12 hours, First dose on Sat04/09/25 at 0900, Until Discontinued, Routine, On Unit - Preprocedure sodium chloride 0.9 % flush 10 mL 10 mL, Intravenous, As needed, Starting on Sat04/09/25 at 0814, Until Sat04/09/25 at 1627, Routine, On Unit - Preprocedure, line care sodium chloride 0.9 % flush 10 mL 10 mL, Intravenous, Every 12 hours, First dose on Sat04/09/25 at 0900, Until Discontinued, Routine, Holding - Preprocedure sodium chloride 0.9 % flush 10 mL 10 mL, Intravenous, As needed, Starting on Sat04/09/25 at 0814, Until Sat04/09/25 at 1627, Routine, Holding - Preprocedure, line care sodium chloride 0.9 % flush 10 mL 10 mL, Intravenous, Every 12 hours, First dose on Sat04/09/25 at 0930, Until Discontinued, Routine, On Unit - Preprocedure sodium chloride 0.9 % flush 10 mL 10 mL, Intravenous, As needed, Starting on Sat04/09/25 at 0842, Until Sat04/09/25 at 1627, Routine, On Unit - Preprocedure, line care sodium chloride 0.9 % flush 10 mL 10 mL, Intravenous, Every 12 hours, First dose on Sat04/09/25 at 0930, Until Discontinued, Routine, Holding - Preprocedure sodium chloride 0.9 % flush 10 mL 10 mL, Intravenous, As needed, Starting on Sat04/09/25 at 0840, Until Sat04/09/25 at 1627, Routine, Holding - Preprocedure, line care documented in this encounter Active and Recently Administered Medications Times are shown in EDT. Scheduled Medication Order 04/07/2025 04/08/2025 04/09/2025 aspirin chewable tablet 324 mg 324 mg, Oral, Daily, First dose on Sat04/09/25 at 0930, Until Discontinued, Routine 0844 (Given - Provid er: Supa Delgado RN) sodium chloride 0.9 % flush 10 mL(Linked Group 1) 10 mL, Intravenous, Every 12 hours, First dose on Sat04/09/25 at 0900, Until Discontinued, Routine, On Unit - Preprocedure 0900 (Canceled Entry - Provider: Automatic Discharge Provider - Comment: Automatically canceled at discontinue of medication order) sodium chloride 0.9 % flush 10 mL(Linked Group 2) 10 mL, Intravenous, Every 12 hours, First dose on Sat04/09/25 at 0900, Until Discontinued, Routine, Holding - Preprocedure 0900 (Canceled Entry - Provider: Automatic Discharge Provider - Comment: Automatically canceled at discontinue of medication order) sodium chloride 0.9 % flush 10 mL(Linked Group 3) 10 mL, Intravenous, Every 12 hours, First dose on Sat04/09/25 at 0930, Until Discontinued, Routine, On Unit - Preprocedure 0930 (Canceled Entry - Provider: Automatic Discharge Provider - Comment: Automatically canceled at discontinue of medication order) sodium chloride 0.9 % flush 10 mL(Linked Group 4) 10 mL, Intravenous, Every 12 hours, First dose on Sat04/09/25 at 0930, Until Discontinued, Routine, Holding - Preprocedure 0930 (Canceled Entry - Provider: Automatic Discharge Provider - Comment: Automatically canceled at discontinue of medication order) PRN Medication Order 04/07/2025 04/08/2025 04/09/2025 acetaminophen (Tylenol) tablet 650 mg 650 mg, Oral, Every 4 hours PRN, Starting on Sat04/09/25 at 1049, Until Sat04/09/25 at 1627, Routine, Recovery(Phase II-Outpatient)/On Unit(Inpatient), mild pain, fever fentaNYL (Sublimaze) injection (CANCELED) As needed, Starting on Sat04/09/25 at 0911, Until Sat04/09/25 at 09, Routine, Intraprocedure 0911 (Given - Provid er: Sharon Munoz RN) heparin (porcine) injection (CANCELED) As needed, Starting on Sat04/09/25 at 0914, Until Sat04/09/25 at 09, Routine, Intraprocedure 913 (Given - Provid er: Yari Hernandes MD) lidocaine (Xylocaine) 1 % injection (CANCELED) As needed, Starting on Sat04/09/25 at 0911, Until Sat04/09/25 at 09, Routine, Intraprocedure 0911 (Given - Provid er: Yari Hernandes MD) midazolam (Versed) injection (CANCELED) As needed, Starting on Sat04/09/25 at 0911, Until Sat04/09/25 at 09, Routine, Intraprocedure 0911 (Given - Provid er: Sharon Munoz RN) nitroglycerin (Tridil) in D5W IV solution 100 mcg/mL (CANCELED) As needed, Starting on Sat04/09/25 at 0914, Until Sat04/09/25 at 0929, Routine, Intraprocedure 09 (Given - Provid er: Yari Hernandes MD) sodium chloride 0.9 % flush 10 mL(Linked Group 1) 10 mL, Intravenous, As needed, Starting on Sat04/09/25 at 0814, Until Sat04/09/25 at 1627, Routine, On Unit - Preprocedure, line care sodium chloride 0.9 % flush 10 mL(Linked Group 2) 10 mL, Intravenous, As needed, Starting on Sat04/09/25 at 0814, Until Sat04/09/25 at 1627, Routine, Holding - Preprocedure, line care sodium chloride 0.9 % flush 10 mL(Linked Group 3) 10 mL, Intravenous, As needed, Starting on Sat04/09/25 at 0842, Until Sat04/09/25 at 1627, Routine, On Unit - Preprocedure, line care sodium chloride 0.9 % flush 10 mL(Linked Group 4) 10 mL, Intravenous, As needed, Starting on Sat04/09/25 at 0840, Until Sat04/09/25 at 1627, Routine, Holding - Preprocedure, line care Linked Groups Order Group 1: Insert peripheral IV (CANCELED) Once, On Sat04/09/25 at 0815, For 1 occurrence, On Unit - Preprocedure And Saline lock IV (CANCELED) Once, On Sat04/09/25 at 0815, For 1 occurrence, On Unit - Preprocedure And sodium chloride 0.9 % flush 10 mLJump to med 10 mL, Intravenous, Every 12 hours, First dose on Sat04/09/25 at 0900, Until Discontinued, Routine, On Unit - Preprocedure And sodium chloride 0.9 % flush 10 mLJump to med 10 mL, Intravenous, As needed, Starting on Sat04/09/25 at 0814, Until Sat04/09/25 at 1627, Routine, On Unit - Preprocedure, line care Group 2: Insert peripheral IV (CANCELED) Once, On Sat04/09/25 at 0815, For 1 occurrence, If a device procedure must have two IV lines with one in the left., Holding - Preprocedure And Saline lock IV (CANCELED) Once, On Sat04/09/25 at 0815, For 1 occurrence, Holding - Preprocedure And sodium chloride 0.9 % flush 10 mLJump to med 10 mL, Intravenous, Every 12 hours, First dose on Sat04/09/25 at 0900, Until Discontinued, Routine, Holding - Preprocedure And sodium chloride 0.9 % flush 10 mLJump to med 10 mL, Intravenous, As needed, Starting on Sat04/09/25 at 0814, Until Sat04/09/25 at 1627, Routine, Holding - Preprocedure, line care Group 3: Insert peripheral IV (CANCELED) Once, On Sat04/09/25 at 0843, For 1 occurrence, On Unit - Preprocedure And Saline lock IV (CANCELED) Once, On Sat04/09/25 at 0843, For 1 occurrence, On Unit - Preprocedure And sodium chloride 0.9 % flush 10 mLJump to med 10 mL, Intravenous, Every 12 hours, First dose on Sat04/09/25 at 0930, Until Discontinued, Routine, On Unit - Preprocedure And sodium chloride 0.9 % flush 10 mLJump to med 10 mL, Intravenous, As needed, Starting on Sat04/09/25 at 0842, Until Sat04/09/25 at 1627, Routine, On Unit - Preprocedure, line care Group 4: Insert peripheral IV (CANCELED) Once, On Sat04/09/25 at 0841, For 1 occurrence, If a device procedure must have two IV lines with one in the left., Holding - Preprocedure And Saline lock IV (CANCELED) Once, On Sat04/09/25 at 0841, For 1 occurrence, Holding - Preprocedure And sodium chloride 0.9 % flush 10 mLJump to med 10 mL, Intravenous, Every 12 hours, First dose on Sat04/09/25 at 0930, Until Discontinued, Routine, Holding - Preprocedure And sodium chloride 0.9 % flush 10 mLJump to med 10 mL, Intravenous, As needed, Starting on Sat04/09/25 at 0840, Until Sat04/09/25 at 1627, Routine, Holding - Preprocedure, line care documented in this encounter Additional Health Concerns Assessment Noted Time PHQ-9 Depression Total Score: 0 03/15/20 25 10:15 AM EDT A fall risk assessment has been complete d for the patient 03/29/2025 11:48 AM EDT A Body Mass Index follow-up plan has been documented for the patient 04/09/2025 12:18 PM EDT documented as of this encounter Care Teams Communication Specialist Relationship Specialty Start Date End Date Stefan Pérez MD [address] [place] [address] PCP - General 12/08/21 documented as of this encounter
--- OUTSIDE RECORDS SUMMARY | 2025-04-09 08:45 | XMS_ITS | Encounter Summary ---
Author Organization [facility] Address [address] [place] [address] Care Team Providers Care Planning Intern Name Role Phone Stefan Pérez MD Primary Care Provider [phone] Reason for Visit * Auth/Cert (Routine) Specialty Diagnoses / Procedures Referred By Maryuri t Referred To Contact Diagnoses Nonrheumatic mitral valve regurgitation Encounter for preprocedural cardiovascular examination Heart failure, unspecified HF chronicity, unspecified heart failure type (CMS/HCC) Nonrheumatic mitral valve regurgitation [I34.0] Encounter for preprocedural cardiovascular examination [Z01.810] Heart failure, unspecified HF chronicity, unspecified heart failure type (CMS/HCC) [I50.9] Procedures [facility] CATH PLACE/CORONARY ANGIO, IMG SUPER/INTERP Coronary angiography Joanne Bolaños MD [address] [place] [address] Phone: tel: fax: Cardiac Dental Surgeon [address] [place] [address] Phone: tel: Referral ID Status Reason Start Date Expiration Date Visits Re quested Visits Authorized [id number] 1 1 Encounter Details Date Type Department Care Team (Late st Contact Info) Description 04/09/2025 8:45 AM EDT - 04/09/2025 9:45 AM EDT Surgery Cardiac Dental Surgeon [address] [place] [address] Joanne Bolaños MD [address] [place] [address] Coronary angiography [32990 (CPT )] Surgery Details Date/Time Status Location OR Service Patient Class Case Class Case Type Trauma Case? 04/09/2025 8:45 AM Posted LIBAN FOOD SAFETY SCIENTIST FOOD SAFETY SCIENTIST 04 [facility] Outpatient Surgery E-Elect shannan Panel 1 Procedure LRB Anes Op Region Wound Class Comments Coronary angiography N/A Choice Surgeon Surgeon Role Service Panel Yari Hernandes MD Fellow Cardiovascular 1 Joanne Bolaños MD Primary Cardiovascular 1 documented in this encounter Social History Tobacco Use Types Packs/Day Years [...] Sign Reading Time Taken Comments Blood Pressure 137/80 04/09/2025 9:45 AM EDT Pulse 46 04/09/2025 9:45 AM EDT Temperature 36.6 C (97.8 F) 04/09/2025 9:33 AM EDT Respiratory Rate 15 04/09/2025 9:45 AM EDT Oxygen Saturation 93% 04/09/2025 9:45 AM EDT Inhaled Oxygen Concentration - - Weight 88 kg (194 lb 0.1 oz) 04/09/2025 8:26 AM EDT Height 175.3 cm (5' 9 ) 04/09/2025 8:26 AM EDT Body Mass Index 28.65 04/09/2025 8:26 AM EDT documented in this encounter Medications at Time of Discharge [...] medications. Information sheetsprovided and highlighted. * Javier Callahan - Supa Delgado, RN - 04/09/2025 12:18 PM EDT 637 [...] no heavy work or lifting, driving a Second Chance Staffinghift car, or vigorous sports. ? Do not [...] arrived back to prep and recovery after LHC. Pt is aaox4 GCS 15. While reviewing home care instructions with patient and family, patients S/O advised that she does not typically drive. Patient andS/O were educated that patient would need a electric lift truck driver due to having sedation and having an arterial stick. All transport options were reviewed with patient and S/O. Patient refuses to go to [facility], says they do not have neighbors or [...] been discussed with the patient and/or their vendor representatives. All questions answered and they agree to [...] Description 05/10/2025 9:00 AM EDT Office Visit [facility] Cardiothoracic [address], [address] [place] [address] Khushbu Gordon MD [address] [place] [address] documented as of this encounter Procedures Procedure Name Priority Date/Time Associated Diagnosis Comments CORONARY ANGIOGRAPHY Routine 04/09/2025 9:22 AM EDT Nonrheumatic mitral valve regurgitation Encounter for preprocedural cardiovascular examination Heart failure, unspecified HF chronicity, unspecified heart failure type ([facility]) CBC W/O DIFFERENTIAL STAT 04/09/2025 8:45 AM [...] The patient was transferred back to the cathode ray tube salvage processor holding area in good condition. Coronary Findings [...] Joanne Bolaños MD CV CARDIAC CATH PROCEDURES Fin al Result * (ABNORMAL) Basic metabolic panel (04/09/2025 8:45 AM EDT) Pathologist [facility] Glucose, Plasma 95 74 - 99 mg/dL 04/09/2025 9:20 AM EDT [facility] BUN, Plasma 14 8 - 23 mg/dL 04/09/2025 9:20 AM EDT [facility] Creatinine, Plasma 0.86 0.70 - 1.20 mg/dL 04/09/2025 9:20 AM EDT [facility] BUN/Creatinine Ratio 16 04/09/2025 9:20 AM EDT [facility] Sodium, Plasma 139 136 - 145 mmol/L 04/09/2025 9:20 AM EDT [facility] Potassium, Plasma 3.8 3.6 - 4.9 mmol/L 04/09/2025 9:20 AM EDT [facility] Chloride, Plasma 103 97 - 107 mmol/L 04/09/2025 9:20 AM EDT [facility] CO2, Plasma 26 22 - 29 mmol/L 04/09/2025 9:20 AM EDT [facility] Anion Gap 10 6 - 16 mmol/L 04/09/2025 9:20 AM EDT [facility] Total Calcium, Plasma 8.8(L) 8.9 - 10.2 mg/dL 04/09/2025 9:20 AM EDT [facility] eGFRcr 91.4 mL/min/1.7 3m*2 04/09/2025 9:20 AM EDT [facility] Comment:Reported eGFRcr in m L/min/1.73m2 is based the CKD-EPI 2020 equation that does not use a race coefficient. Blood Venous blood specimen / Unknown Venipuncture / Unknown 04/09/2025 8:45 AM EDT 04/09/2025 8:51 AM EDT us Joanne Bolaños MD LAB BLOOD ORDERABLES Final Res ult [facility] [address] [place] [address] * (ABNORMAL) Hemogram (CBC) (04/09/2025 8:45 AM EDT) WBC Count 7.08 3.70 - 10.30 10*3/uL LAB HEMATOLOGY METHOD 04/09/2025 9:12 AM EDT [facility] RBC Count 4.52(L) 4.60 - 6.10 10*6/uL LAB HEMATOLOGY METHOD 04/09/2025 9:12 AM EDT [facility] HGB 13.0(L) 13.7 - 17.5 g/dL LAB HEMATOLOGY METHOD 04/09/2025 9:12 AM EDT [facility] HCT 38.9(L) 40.0 - 51.0 % LAB HEMATOLOGY METHOD 04/09/2025 9:12 AM EDT [facility] Platelet Count 170 155 - 369 10*3/uL LAB HEMATOLOGY METHOD 04/09/2025 9:12 AM EDT [facility] MCV 86 79 - 98 fL LAB HEMATOLOGY METHOD 04/09/2025 9:12 AM EDT [facility] MCH 28.8 26.0 - 32.0 pg LAB HEMATOLOGY METHOD 04/09/2025 9:12 AM EDT [facility] MCHC 33.4 30.7 - 35.5 g/dL LAB HEMATOLOGY METHOD 04/09/2025 9:12 AM EDT [facility] RDW 13.2 11.5 - 14.5 % LAB HEMATOLOGY METHOD 04/09/2025 9:12 AM EDT [facility] MPV 10.8 8.8 - 12.5 fL LAB HEMATOLOGY METHOD 04/09/2025 9:12 AM EDT [facility] nRBC 0.0 <=0.0 per 100 WBCs LAB HEMATOLOGY METHOD 04/09/2025 9:12 AM EDT [facility] Blood Venous blood specimen / Unknown Venipuncture / Unknown 04/09/2025 8:45 AM EDT 04/09/2025 8:50 AM EDT us Joanne Bolaños MD LAB BLOOD ORDERABLES Final Res ult Performing Organization Address City/[facility]/ZIP Co de Phone Number [facility] [address] [place] [address] * POCT creatinine (04/09/2025 8:43 AM EDT) [facility] Creatinine, Point of Care 0.9 0.7 - 1.2 mg/dL 04/09/2025 8:47 AM EDT [facility] POCT eGFR 90 mL/min/1. 73m*2 04/09/2025 8:47 AM EDT [facility]ALTH[facility] Day Care [facility] Director ID Ruth Leija 04/09/2025 8:47 AM EDT HEALTHCARE LAB Device ID [id number] 04/09/2025 8:47 AM EDT [facility]ALTH[facility] Comment 04/09/2025 8:47 AM EDT [facility] Comment:Testing performed on i-STAT at the point of care. Reported eGFRcr in mL/min/1.73m2 is based the CKD-EPI 2020 equation that does not use a race coefficient. Blood Venous blood specimen / Unknown 04/09/2025 8:43 AM EDT 04/09/2025 8:47 AM EDT us Joanne Bolaños MD LAB POINT OF CARE TE ST DOCKED DEVICE UNSOLICITED RESULTS Final Result Performing Organization Address [facility] Co de Phone Number [facility]ALTHCARE LAB [address] LAB [address] [place] [address] documented in this encounter Visit Diagnoses Diagnosis [...] Given 04/09/2025 8:44 AM EDT 324 mg fentaNYL (Sublimaze) injection As needed, Starting on Sat04/09/25 at 0911, Until Sat04/09/25 at 0929, Routine, Intraprocedure Given 04/09/2025 9:11 AM EDT 25 mcg heparin (porcine) injection As needed, Starting on Sat04/09/25 at 0914, Until Sat04/09/25 at 0929, Routine, Intraprocedure Given 04/09/2025 9:14 AM EDT 5,000 Units lidocaine (Xylocaine) 1 % injection As needed, Starting on Sat04/09/25 at 0911, Until Sat04/09/25 at 0929, Routine, Intraprocedure Given 04/09/2025 9:11 AM EDT 5 mL Right Radial midazolam (Versed) injection As needed, Starting on Sat04/09/25 at 0911, Until Sat04/09/25 at 0929, Routine, Intraprocedure Given 04/09/2025 9:11 AM EDT 1 mg nitroglycerin (Tridil) in D5W IV solution 100 mcg/mL As needed, Starting on Sat04/09/25 at 0914, Until Sat04/09/25 at 0929, Routine, Intraprocedure Given 04/09/2025 9:14 AM EDT 200 mcg sodium chloride 0.9 % flush 10 mL [...] on Sat04/09/25 at 0911, Until Sat04/09/25 at 0929, Routine, Intraprocedure 09 (Given - Provid er: Sharon Munoz RN) heparin (porcine) injection (CANCELED) As needed, Starting on Sat04/09/25 at 0914, Until Sat04/09/25 at 09, Routine, Intraprocedure 09 (Given - Provid er: Yari Hernandes MD) lidocaine (Xylocaine) 1 % injection (CANCELED) As needed, Starting on Sat04/09/25 at 0911, Until Sat04/09/25 at 09, Routine, Intraprocedure 09 (Given - Provid er: Yari Hernandes MD) midazolam (Versed) injection (CANCELED) As needed, Starting on Sat04/09/25 at 0911, Until Sat04/09/25 at 0929, Routine, Intraprocedure 0911 (Given - Provid er: Sharon Munoz RN) nitroglycerin (Tridil) in D5W IV solution 100 mcg/mL (CANCELED) As needed, Starting on Sat04/09/25 at 0914, Until Sat04/09/25 at 0929, Routine, Intraprocedure 0914 (Given - Provid er: Yari Hernandes MD) [...] documented as of this encounter Care Teams Planning Intern Relationship Specialty Start Date End Date Stefan Pérez MD [address] [place] [address] [address] [place] [address] PCP - General 12/08/21 documented as of this encounter
--- OUTSIDE RECORDS SUMMARY | 2025-04-09 11:10 | XMS_ITS | Encounter Summary ---
Author Organization [facility] Address [address] [id number] Care Team Providers Care Batch Operator Name Role Phone Stefan Pérez MD Primary Care Provider [phone] Reason for Referral * Imaging (Routine) - Closed Specialty Diagnoses / Procedures Referred By Maryuri t Referred To Contact Radiology Diagnoses Nonrheumatic mitral (valve) insufficiency Procedures CT Angio Abdomen Pelvis w Runoff Khushbu Gordon MD [address] [address] Phone: tel: fax: Referral ID Status Reason Start Date Expiration Date Visits Re quested Visits Authorized [id number] Closed 03/31/2025 09/30/2026 1 1 * Imaging (Routine) - Closed Specialty Diagnoses / Procedures Referred By Junaidac t Referred To Contact Radiology Diagnoses Nonrheumatic mitral (valve) insufficiency Procedures CT Angio Chest Khushbu Gordon MD [address] [address] Phone: tel: fax: Referral ID Status Reason Start Date Expiration Date Visits Re quested Visits Authorized [id number] Closed 03/31/2025 09/30/2026 1 1 Reason for Visit * Auth/Cert (Routine) Specialty Diagnoses / Procedures Referred By Contac t Referred To Contact Diagnoses Nonrheumatic mitral valve regurgitation Encounter for preprocedural cardiovascular examination Heart failure, unspecified HF chronicity, unspecified heart failure type (CMS/HCC) Nonrheumatic mitral valve regurgitation [I34.0] Encounter for preprocedural cardiovascular examination [Z01.810] Heart failure, unspecified HF chronicity, unspecified heart failure type (CMS/HCC) [I50.9] Procedures [place] CATH PLACE/CORONARY ANGIO, IMG SUPER/INTERP Coronary angiography Joanne Bolaños MD [address] [place] [address] Phone: tel: fax: Cardiac Clothespin Machine Operator [address] [place] [address] Phone: tel: Referral ID Status Reason Start Date Expiration Date Visits Re quested Visits Authorized [id number] 1 1 Encounter Details Date Type Department Care Team (Latest Contact Info) Description 04/09/2025 11:10 AM EDT - 04/09/2025 11:59 PM EDT Hospital Encounter [facility] Radiology [address] [place] [id number] Nonrheumatic mitral (valve) insufficiency Discharge Disposition: Home or Self Care Social [...] on file documented as of this encounter Functional Status * AUDIT-C Score Answer Date of Assessment Author 0 04/12/2025 11:38 AM Luz Zuluaga * Question Answer Date of Assessment Author Q1: How often do you have a drink containing alcohol? Never 04/12/2025 11:38 AM Mana Gomez Q2: How many drinks containing alcohol do [...] tablet 12/09/2021 documented as of this encounter Plan of Treatment Upcoming Encounters Date Type Department Care Team (Late st Contact Info) Description 05/10/2025 9:00 AM EDT Office Visit [facility] Cardiothoracic [address], [address] [place] [id number] Khushbu Gordon MD [address] [place] [phone] documented as of this encounter Procedures Procedure Name Priority Date/Time Associated Diagnosis Comments CT ANGIO ABDOMEN PELVIS W RUNOFF Routine 04/09/2025 1:32 PM EDT Nonrheumatic mitral (valve) insufficiency CT ANGIO CHEST Routine 04/09/2025 1:32 PM EDT Nonrheumatic mitral (valve) insufficiency documented in this encounter Results * CT Angio Abdomen Pelvis w Runoff [...] measuring up to 15 mm (series 1, [id number] and 495). No pericardial or pleural effusion. [...] measuring up to 15 mm (series 1, and 495). No pericardial or pleural effusion. [...] encounter Visit Diagnoses Diagnosis Nonrheumatic mitral (valve) insufficiency documented in this encounter Administered Medications Inactive Administered Medications - up to 3 most recent administrations Medication Order MAR Action Action Date Dose Rate Site iohexol (OMNIPaque) 350 MG/ML injection 150 mL 150 mL, Intravenous, Once in imaging, 1 dose, Starting on Sat04/09/25 at 1320, Until Sat04/09/25 at 1320, Routine, Imaging Protocol Orders Given 04/09/2025 1:20 PM EDT 150 mL documented in this encounter Additional Health Concerns Assessment Noted Time PHQ-9 Depression Total Score: 0 03/15/20 10:15 AM EDT A fall risk assessment has been complete d for the patient 03/29/2025 11:48 AM EDT A Body Mass Index follow-up plan has been documented for the patient 04/09/2025 12:18 PM EDT documented as of this encounter Care Teams Batch Operator Relationship Specialty Start Date End Date Stefan Pérez MD [address] [place] [address] [address] [place] [address] PCP - General 12/08/21 documented as of this encounter
--- OUTSIDE RECORDS SUMMARY | 2025-04-12 09:00 | XMS_ITS | Encounter Summary ---
Author Organization Healthcare Address [address] [place] [address] Care Team Providers Care Alligator Trapper Name Role Phone Stefan Pérez MD Primary Care Provider [phone] Encounter Details Date Type Department Care Team (Latest Contact Info) Description 04/12/2025 9:00 AM EDT - 04/12/2025 9:59 AM EDT Hospital Encounter PAV H Pulmonary Function Testing [address] [place] [address] Nonrheumatic mitral (valve) insufficiency Discharge Disposition: Home [...] on file documented as of this encounter Medications at [...] Description 05/10/2025 9:00 AM EDT Office Visit [facility] Cardiothoracic [address], [facility] [address] [place] [address] Khushbu Gordon MD [address] [place] [address] documented as of this encounter Procedures Procedure Name Priority Date/Time Associated Diagnosis Comments HC DIFFUSING CAPACITY - CARBON MONOXIDE DIFFUSING CAPACITY Routine 04/12/2025 10:43 AM EDT Nonrheumatic mitral (valve) insufficiency documented in this encounter Results * (ABNORMAL) PFT (Full) (04/12/2025 10:43 AM EDT) TQT0JYM 3.10(A) 5.01 - 8.64 L VYAIRE PFT FVC PRED 3.72 VYAIRE PFT FVC LLN 2.74 VYAIRE PFT FVCPREZSCORE -1.03 VYAIRE PFT FVCPRE%PRED 83 % % VYAIRE PFT FVC PREDAUT US_[facility]jer GLI (2011) VYAIRE PFT FVC Z-SCORE -1.03 VYAIRE PFT FEV1 PRE 2.29(A) 3.51 - 6.23 L VYAIRE PFT FEV1 PRED 2.82 VYAIRE PFT FEV1 LLN 2.01 VYAIRE PFT TQX8UIPCMHIIS -1.08 VYAIRE PFT FEV1_Pre%Pred 81 % % VYAIRE PFT FEV1 PREDAUT US_[facility] GLI (2011) VYAIRE PFT FEV1 Z-SCORE -1.08 VYAIRE PFT FEV1/FVC PRE 73.96 59.73 - 85.00 % VYAIRE PFT FQG6BAZJURX 76 VYAIRE PFT SFE4VIFEIR 62 VYAIRE PFT IGU7YJSSZFNZLZTS -0.26 VYAIRE PFT JHV1IZYACR%PRED 97 % % VYAIRE PFT KTA2HWCJUZXN US_[facility] GLI (2011) VYAIRE PFT KDJ3YDOXNIHCG 0 VYAIRE PFT MFL96-94% PRE 1.69 1.37 - 6.00 L/s VYAIRE PFT IVG23-85%_Pred 2.14 VYAIRE PFT ZTI9324%LLN 0.89 VYAIRE PFT EAB0521%PREZSCORE -0.51 VYAIRE PFT PQJ5219%PRE%PRED 79 % % VYAIRE PFT YLJ2525%PREDAUT US_[facility] GLI (2011) VYAIRE PFT PEF PRE 6.12(A) 8.59 - 15.60 L/s VYAIRE PFT PEF PRED 7.39 VYAIRE PFT PEF LLN 5.27 VYAIRE PFT PEFPREZSCORE -0.98 VYAIRE PFT PEFPRE%PRED 83 % % VYAIRE PFT [facility]F [facility] III (1998) VYAIRE PFT EWYYGLSVXYELUNVL6IEA 17.81(A) 28.22 - 50.94 ml/(min* mmHg) VYAIRE PFT DLCOSINGLEBREATH PRED 23.25 VYAIRE PFT DLCOSINGLEBREATH LLN 17.01 VYAIRE PFT DLCOSINGLEBREATH Z-SCORE -1.42 VYAIRE PFT DLCOSINGLEBREATH % PRED 76.6 % VYAIRE PFT DLCOSINGLEBREATH PRED[facility] TLCO GLI (2019) VYAIRE PFT DLCOSINGLEBREATH Z-SCORE -1.42 04/12/2025 10:40 AM EDT VYAIRE PFT BORDMQWQOBKHSJHOI7JY E 17.81(A) 28.22 - 50.94 ml/(min* mmHg) VYAIRE PFT DLCOCSINGLEBREATH PRED 23.25 VYAIRE PFT DLCOCSINGLEBREATH LLN 17.01 VYAIRE PFT DLCOCSINGLEBREATH Z-SCORE -1.42 VYAIRE PFT DLCOCSINGLEBREATH % PRED 76.6 % VYAIRE PFT DLCOCSINGLEBREATH PREDBlue [facility], [facility] TLCO GLI (2019) VYAIRE PFT WNDKHD2TAS 3.09 2.70 - 4.72 ml/(min* mmHg*L) VYAIRE PFT DLCOVAPRED 4.07 VYAIRE PFT DLCOVALLN 3.00 VYAIRE PFT DLCOVAZSCORE -1.50 VYAIRE PFT DLCOVA%PRED 76.0 % VYAIRE PFT DLCOVAPREDNovant Health [facility] Centervic TLCO GLI (2019) VYAIRE PFT DLCOVAZSCORE -1.50 04/12/2025 10:40 AM EDT VYAIRE PFT ZPFBIWRHK2AGM 3.09 2.70 - 4.72 ml/(min* mmHg*L) VYAIRE PFT DLCOC SB/VA PRED 4.07 VYAIRE PFT DLCOC SB/VA LLN 3.00 VYAIRE PFT DLCOC SB/VA Z-SCORE -1.50 VYAIRE PFT DLCOC SB/VA % PRED 76.0 % VYAIRE PFT DLCOC SB/VA PREDBlue [facility] TLCO GLI (2019) VYAIRE PFT DLCOC SB/VA Z-SCORE -1.50 04/12 10:40 AM EDT VYAIRE PFT EUGYSPWZBTWYYP9CZE 5.76(A) 8.50 - 12.80 L VYAIRE PFT VASINGLEBREATH PRED 5.75 VYAIRE PFT VASINGLEBREATH LLN 4.62 VYAIRE PFT VASINGLEBREATH Z-SCORE 0.02 VYAIRE PFT VASINGLEBREATH % PRED 100.3 % VYAIRE PFT VASINGLEBREATH PREDBlue [facility], Inc. TLCO GLI (2019) VYAIRE PFT VASINGLEBREATH Z-SCORE 0.02 04/12/2025 10:40 AM EDT VYAIRE PFT FIKQLEWWBMCCVCE0LRG 2.91(A) 5.01 - 8.64 L VYAIRE PFT IVCSINGLEBREATH PRED 3.72 VYAIRE PFT IVCSINGLEBREATH LLN 2.74 VYAIRE PFT IVCSINGLEBREATH Z-SCORE -1.36 VYAIRE PFT IVCSINGLEBREATH % PRED 78.2 % VYAIRE PFT IVCSINGLEBREATH PR[facility]CAL[facility] GLI (2011) VYAIRE PFT CECIL% VCMAX PRE 93.74 % VYAIRE PFT TLC SB PRE 5.95(A) 9.06 - 13.98 L VYAIRE PFT TLCSINGLEBREATH PRED 6.44 VYAIRE PFT TLCSINGLEBREATH LLN 5.07 VYAIRE PFT TLCSINGLEBREATH Z-SCORE -0.58 VYAIRE PFT TLCSINGLEBREATH % PRED 92.5 % VYAIRE PFT TLCSINGLEBREATH PREDW[facility]am [facility] Lung volumes GLI (2019)__ VYAIRE PFT HB PRE 14.60 g(Hb)/dL VYAIRE PFT IYM3NHQ 6.92(A) 9.06 - 13.98 L VYAIRE PFT TLCPRED 6.44 VYAIRE PFT TLCLLN 5.07 VYAIRE PFT TLCULN 7.82 VYAIRE PFT TLCZSCORE 0.58 VYAIRE PFT TLC%PRED 107.5 % VYAIRE PFT TLCPREDWaltham Hospital Lung volumes GLI (2019)__ VYAIRE PFT VC0PRE 3.12(A) 5.01 - 8.64 L VYAIRE PFT VCPRED 3.72 VYAIRE PFT VCLLN 2.74 VYAIRE PFT VCULN 4.72 VYAIRE PFT VCZSCORE -1.00 VYAIRE PFT VC%PRED 83.9 % VYAIRE PFT VCPREDAUTCROWNPOINT [facility] GLI (2011) VYAIRE PFT IC0PRE 2.24(A) 3.46 - 6.44 L VYAIRE PFT ICPRED 2.88 VYAIRE PFT ICLLN 2.00 VYAIRE PFT ICULN 3.72 VYAIRE PFT IC Z-SCORE -1.20 VYAIRE PFT IC%PRED 77.9 % VYAIRE PFT ICPREDWaltham Hospital Lung volumes GLI (2019)__ VYAIRE PFT FIWZEIDW3CLM 4.68(A) 4.83 - 9.56 L VYAIRE PFT FRCPLETH PRED 3.46 VYAIRE PFT FRCPLETH LLN 2.41 VYAIRE PFT FRCPLETH ULN 4.78 VYAIRE PFT FRCPLETH Z-SCORE 1.53 VYAIRE PFT FRCPLETH % PRED 135.1 % VYAIRE PFT FRCPOhio [facility] Lung volumes GLI (2019)__ VYAIRE PFT SKT6UHS 0.88 0.78 - 5.18 L VYAIRE PFT ERVPRED 1.06 VYAIRE PFT ERVLLN 0.33 VYAIRE PFT ERVULN 2.17 VYAIRE PFT ERV Z-SCORE -0.34 VYAIRE PFT ERV%PRED 82.8 % VYAIRE PFT ERVPREDAUTH [facility] Lung volumes GLI (2019)__ VYAIRE PFT RV0PRE 3.80 2.60 - 6.70 L VYAIRE PFT RVPRED 2.36 VYAIRE PFT RVLLN 1.38 VYAIRE PFT RVULN 3.55 VYAIRE PFT RVZSCORE 1.95 VYAIRE PFT RV%PRED 160.7 % VYAIRE PFT RVPREDAUTH [facility] Lung volumes GLI (2019)__ VYAIRE PFT RV%ZYV1SFN 54.87(A) 24.90 - 48.85 % VYAIRE PFT [...] underwent pulmonary function testing today at the [facility]. The patient underwent spirometry, lung volumes by [...] There are no prior studies for comparison. Khushbu Gordon MD PFT ORDERABLES Final Result documented in this encounter Visit Diagnoses Diagnosis Nonrheumatic mitral (valve) insufficiency documented in this encounter Additional Health Concerns Assessment Noted Time PHQ-9 Depression Total Score: 0 03/15/20 25 10:15 AM EDT A fall risk assessment has been complete d for the patient 03/29/2025 11:48 AM EDT A Body Mass Index follow-up plan has been documented for the patient 04/22/2025 3:06 PM EDT documented as of this encounter Care Teams Alligator Trapper Relationship Specialty Start Date End Date Stefan Pérez MD [address] [place] [address] [address] [place] [address] PCP - General 12/08/21 documented as of this encounter
--- OUTSIDE RECORDS SUMMARY | 2025-04-12 10:00 | XMS_ITS | Encounter Summary ---
Author Organization [facility] Address [address] [place] [address] Care Team Providers Care Gunner'S Mate M Name Role Phone Stefan Pérez MD Primary Care Provider [phone] Reason for Referral * Imaging (Routine) - Closed Specialty Diagnoses / Procedures Referred By Maryuri lopez Referred To Contact Cardiology Diagnoses Nonrheumatic mitral (valve) insufficiency Suspected pulmonary hypertension Procedures VAS US Carotid Duplex Bilateral Khushbu Gordon MD [address] [address] Phone: tel: fax: Referral ID Status Reason Start Date Expiration Date V isits Requested Visits Authorized [id number] Closed Perform Procedure 03/31/2025 09/30/2026 1 1 Reason for Visit * Imaging (Routine) - Closed Specialty Diagnoses / Procedures Referred By Contac t Referred To Contact Cardiology Diagnoses Nonrheumatic mitral (valve) insufficiency Suspected pulmonary hypertension Procedures VAS US Carotid Duplex Bilateral Khushbu Gordon MD [address] [address] Phone: tel: fax: Referral ID Status Reason Start Date Expiration Date V isits Requested Visits Authorized [id number] Closed Perform Procedure 03/31/2025 09/30/2026 1 1 Encounter Details Date Type Department Care Team (Latest Contact Info) Description 04/12/2025 10:00 AM EDT - 04/12/2025 11:59 PM EDT Hospital Encounter PAV H Vascular Lab [address] [place] [address] Nonrheumatic mitral (valve) insufficiency; Suspected pulmonary hypertension Discharge Disposition: Home or Self Care Social [...] hopeless Not at all 04/12/2025 11:39 AM EDT Mana Gibbons Patient Health Questionnaire -2 Score 0 04/12/2025 11:39 AM EDT Mana Gibbons documented as of this encounter Medications at [...] Description 05/10/2025 9:00 AM EDT Office Visit [facility] Cardiothoracic [address], [address] [place] [address] Khushbu Gordon MD [address] [place] [address] documented as of this encounter Procedures Procedure Name Priority Date/Time Associated Diagnosis Comments VAS US CAROTID DUPLEX BILATERAL Routine 04/12/2025 11:11 AM EDT Nonrheumatic mitral (valve) insufficiency Suspected pulmonary hypertension documented in this encounter Results * VAS US Carotid [...] MD CV VASCULAR PROCEDURES Final R esult documented in this encounter Visit Diagnoses Diagnosis Nonrheumatic mitral (valve) insufficiency Suspected pulmonary hypertension [...] documented as of this encounter Care Teams Gunner'S Mate M Relationship Specialty Start Date End Date Stefan Pérez MD [address] [place] [address] [address] [place] [address] PCP - General 12/08/21 documented as of this encounter
--- OUTSIDE RECORDS SUMMARY | 2025-04-12 12:20 | XMS_ITS | Encounter Summary ---
Author Organization Healthcare Address [address] [place] [address] Care Team Providers Care Chemical Process Analyst Name Role Phone Stefan Pérez MD Primary Care Provider [phone] Encounter Details Date Type Department Care Team (Late st Contact Info) Description 04/12/2025 12:20 PM EDT Office Visit [facility] Cardiothoracic [address], [address] [place] [address] Khushbu Gordon MD [address] [place] [address] Mitral valve disease (Primary Dx) Social History Tobacco Use Types Packs/Day Years [...] Sign Reading Time Taken Comments Blood Pressure 136/74 04/12/2025 11:32 AM EDT Pulse 54 04/12/2025 11:32 AM EDT Temperature - - Respiratory Rate - - Oxygen Saturation 98% 04/12/2025 11: 32 AM EDT Inhaled Oxygen Concentration - - Weight 87.4 kg (192 lb 10.9 oz) 025 11:32 AM EDT Height 175.3 cm (5' 9 ) 04/12/2025 11:3 2 AM EDT Body Mass Index 28.45 04/12/2025 11:32 AM EDT documented in this encounter Functional [...] Patient does not drink 04/12/2025 11:38 AM EDT Luz Gibbons Q3: How often do you have six or more drinks on one occasion? Never 04/12/2025 11:38 AM JOELT Mana Gibbons * Over the past 2 [...] Mana Gomez documented as of this encounter Miscellaneous Notes * Progress Notes - Jemal Obando MD - 04/12/2025 12:20 PM EDT Images from the original note were not included. Reason for visit / Chief Complaint: preop planning History of present illness: Jake Pacheco is a 75 y.o. 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 Had LHC with nonobstructive CAD, PFTs which were normal, and no evidence of aortoiliac disease on CTA. 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 His chronic comorbid conditions that impact our treatment planning include: None NYHA Classification: Class II: Mild symptoms with ordinary activity. Active Problems: Patient Active Problem List Diagnosis Date Noted BMI 28.0-28.9,adult 03/29/2025 COPD (chronic obstructive pulmonary disease) (CMS/HCC) 03/11/2025 Nonrheumatic mitral (valve) insufficiency 03/11/2025 TIA (transient ischemic attack) 03/11/2025 S/P total left hip arthroplasty 12/26/2021 Primary localized osteoarthritis of left hip 12/08/2021 HTN (hypertension) 11/29/2021 High cholesterol 11/29/2021 Gastroesophageal reflux disease 11/29/2021 Smoking 11/07/2021 Nonrheumatic mitral valve regurgitation 04/01/2025 Encounter for preprocedural cardiovascular examination 04/01/2025 Heart failure 04/01/2025 Primary osteoarthritis of left hip 11/07/2021 Medical History: Past Medical History Pertinent Negatives[1] Surgical History: Surgical History[2] Social History: Tobacco: Tobacco Use: Medium Risk (04/12/2025) Patient History Smoking Tobacco Use: Former Smokeless Tobacco Use: Never Passive Exposure: Not on file Alcohol: Alcohol Use: Not At Risk (04/12/2025) AUDIT-C Frequency of Alcohol Consumption: Never Average Number of Drinks: Patient does not drink Frequency of Binge Drinking: Never Illicit drug use: Social History Substance and [...] hours if needed for mild pain. 12/09/21 Yes Ronnie Thomas atorvastatin (Lipitor) 20 MG tablet Take 1 tablet by mouth daily. 01/28/25 Yes Jaxson Munoz MD bisoprolol-hydroCHLOROthiazide (Ziac) 5-6.25 MG tablet 1 (one) time each day. 12/19/21 Yes Jaxson Munoz MD clopidogrel (Plavix) 75 MG tablet Take by mouth daily. Yes Jaxson Munoz MD losartan (Cozaar) 100 MG tablet Take 1 tablet by mouth daily. 01/26/25 Yes Jaxson Munoz MD traMADol (Ultram) 50 MG tablet Take 1 tablet (50 mg total) by mouth every 4 (four) hours if needed for severe pain. 12/09/21 Yes Ronnie Thomas aspirin 81 MG EC tablet Take 1 tablet by mouth daily. Patient not taking: Reported on 04/12/2025 Jaxson Munoz MD gabapentin (Neurontin) 100 MG capsule Take 1 capsule (100 mg total) by mouth 3 (three) times a day. Patient not taking: Reported on 04/12/2025 12/20/21 Aubrey Purvis MD meloxicam (Mobic) 15 MG tablet Take 1 tablet (15 mg total) by mouth 1 (one) time each day. Patient not taking: Reported on 04/12/2025 12/09/21 Ronnie Thomas omeprazole (PriLOSEC) [address] capsule Take 1 capsule (20 mg total) by mouth 1 (one) time each day.Do not crush or chew. Take for 4 weeks post-operatively. Patient not taking: Reported on 04/12/2025 12/09/21 Ronnie Thomas senna-docusate sodium (Senokot-S) 8.6-50 MG tablet Take 1 tablet by mouth 1 (one) time each day. Patient not taking: Reported on 04/12/2025 12/09/21 Ronnie Thomas tiZANidine (Zanaflex) 4 MG tablet 1 (one) time each day. Patient not taking: Reported on 04/12/2025 12/11/21 Jaxson Munoz MD Physical exam: Visit Vitals BP 136/74 Pulse 54 SpO2 98% Constitutional: well developed, well nourished, and in [...] sensation and reflexes and motor intact Skin: [place], warm, well perfused, numerous excoriations on trunk and back, none appear infected Labs in last 18 hours: CBC WBC [...] D.Bili ?? Imaging: CMR 06/2024 VINOD 06/2024 CTA c/a/p 04/09/25 Without aortoiliac occlusive disease PFTs 04/12/25 Normal spirometry Cardiac Cath Results: 04/09/25 # Non-obstructive CAD in mid LAD and OM1 # Successful hemostasis of right radial 6F arterial access with TR band Impression: 75 year old male with severe symptomatic mitral regurgitation. Has numerous skin excoriations which will need to clear prior to surgery. Plan: -return to clinic in 2weeks for skin check and preop consent [1] Past Medical History: Diagnosis Date Hypertension Osteoarthritis [2] Past Surgical History: Procedure Laterality Date APPENDECTOMY TOTAL HIP ARTHROPLASTY [3] No Known Allergies Cosigned by Khushbu Gordon MD at 04/19/2025 9:50 AM EDT Associated attestation - Khushbu Gordon MD - 04/19/2025 9:50 AM EDT I saw and evaluated the patient with the resident/fellow. I discussed the case with the resident/fellow and agree with the findings and plan as documented. documented in this encounter Plan of Treatment Upcoming Encounters Date Type Department Care Team (Late st Contact Info) Description 05/10/2025 9:00 AM EDT Office Visit [facility] Cardiothoracic [address], [address] [place] [address] Khushbu Gordon MD [address] [place] [address] documented as of this encounter Visit Diagnoses Diagnosis Mitral valve disease- Primary Other and unspecified mitral valve diseases documented in this encounter Additional Health Concerns Assessment Noted Time PHQ-9 Depression Total Score: 0 03/15/20 25 10:15 AM EDT A fall risk assessment has been complete d for the patient 03/29/2025 11:48 AM EDT A Body Mass Index follow-up plan has been documented for the patient 04/22/2025 3:06 PM EDT documented as of this encounter Care Teams Chemical Process Analyst Relationship Specialty Start Date End Date Stefan Pérez MD [address] [facility] [address] [place], [place] [id number] PCP - General 12/08/21 documented as of this encounter
[2025-04-28 18:11] LABS: Hematocrit 39.2 % (42.0-52.0); Hemoglobin 12.7 g/dL (14.1-18.0); Immature Granulocytes % 0.2 %; Mean Corpuscular HGB Conc 32.4 g/dL (31.8-35.4); Mean Corpuscular Hemoglobin 28.7 pg (27.0-31.2); Mean Corpuscular Volume 88.7 fl (80-94); Nucleated Red Blood Cells % 0 %; Platelet Count 186 K/mm3 (142-424); Red Blood Count 4.42 M/mm3 (4.60-6.20); Red Cell Distribution Width-SD 43.8 fL; White Blood Count 6.6 K/mm3 (4.8-10.8)
[2025-04-28 19:16] LABS: Alanine Aminotransferase 14 U/L (12-78); Albumin Level 4.2 g/dl (3.5-5.0); Albumin/Globulin Ratio 1.4 (1.1-1.8); Alkaline Phosphatase 60 U/L (38-126); Anion Gap 11.3 mEq/L (5-15); Aspartate Amino Transferase 27 U/L (17-59); Bilirubin,Total 0.5 mg/dl (0.2-1.3); Blood Urea Nitrogen 12 mg/dl (9-20); Calcium 9.0 mg/dl (8.4-10.2); Carbon Dioxide 31 mmol/L (22.0-30.0); Chloride 99 mmol/L (98-107); Cholesterol 140 mg/dl (140-200); Creatinine,Serum 0.80 mg/dl (0.66-1.25); Estimated Glomerular Filt Rate 95 ml/min (>60); GFR (African American) 115 ML/MIN (>60); Globulin 3.0 g/dL (1.3-3.2); Glucose 78 mg/dl (74-100); HDL Cholesterol 35 mg/dl (40-60); Potassium 4.3 mmoL/L (3.5-5.1); Sodium 137 mmol/L (136-145); Total Protein,Serum 7.2 g/dl (6.3-8.2); Triglycerides 187 mg/dl (30-150)
[2025-04-29 08:33] LABS: Iron 86 ug/dL (49-181)
[2025-04-29 08:42] LABS: Total Iron Binding Capacity 310 ug/dL (261-462)
--- OUTSIDE RECORDS SUMMARY | 2025-04-30 09:18 | XMS_ITS | Encounter Summary ---
Author Organization Healthcare Address [address] [place] [address] Care Team Providers Care Scrubber Machine Tender Name Role Phone Stefan Pérez MD Primary Care Provider [phone] Encounter Details Date Type Department Care Team (Latest Contact Info) Description 03/15/2025 Travel Social History Tobacco Use Types Packs/Day Years [...] as of this encounter Functional Status * Over the [...] Questionnaire -2 Score 0 03/15/2025 10:15 AM EDT Jyothi Arrington * Question Answer Date of Assessment Author Trouble falling or staying asleep, or sleeping too much Not at all 03/15/2025 10:15 AM JOELT Jyothi Arrington Feeling tired or having prateek le energy [...] usual. Not at all 03/15/2025 10:15 AM EDT Jyothi Arrington Thoughts that you would be b china off or hurting yourself in some way Not at all 03/15/2025 10:15 AM EDT Jyothi Arrington Patient Health Questionnaire -9 Score 0 03/15/2025 10:15 AM EDT Jyothi Arrington * If you checked off any problems on this questionnaire so far, Question Answer Date of Assessment Author How difficult have these problems made it for you to do your work, take care of things at home, or get along with other people? Not difficult at all 03/15/2025 10:15 AM EDT Jyothi Arrington documented as of this encounter Plan of Treatment Upcoming Encounters Date Type Department Care Team (Late st Contact Info) Description 05/10/2025 9:00 AM EDT Office Visit [facility] Cardiothoracic [address], [address] [place] [address] Khushbu Gordon MD [address] [place] [address] documented as of this encounter Visit Diagnoses Not on filedocumented in this encounter Additional Health Concerns Assessment Noted Time PHQ-9 Depression Total Score: 0 03/15/20 25 10:15 AM EDT A fall risk assessment has been complete d for the patient 03/15/2025 10:16 AM EDT A Body Mass Index follow-up plan has been documented for the patient 03/15/2025 10:59 AM EDT documented as of this encounter Care Teams Scrubber Machine Tender Relationship Specialty Start Date End Date Stefan Pérez MD [facility] [address] [place] [address] PCP - General 12/08/21 documented as of this encounter
--- OUTSIDE RECORDS SUMMARY | 2025-04-30 09:18 | XMS_ITS | Encounter Summary ---
Author Organization [facility] Address [address] [place] [address] Care Team Providers Care Circulation Manager Name Role Phone Stefan Pérez MD Primary Care Provider [phone] Reason for Referral * Consultation (Routine) - Authorized Specialty Diagnoses / Procedures Referred By Maryuri t Referred To Contact Pulmonology Diagnoses Lung nodule Khushbu Gordon MD [address] [address] Phone: tel: fax: [facility] [address] [place] [address] Phone: tel: fax: Referral ID Status Reason Start Date Expiration Date Visits Requested Visits Authorized [id number] Authorized Specialty Services Required 04/28/2025 10/28/2026 1 1 * Imaging (Routine) - Pending Review Specialty Diagnoses / Procedures Referred By Contally t Referred To Contact Radiology Diagnoses Lung nodule Procedures CT Angio Chest Khushbu Gordon MD [address] [address] Phone: tel: fax: Referral ID Status Reason Start Date Expiration Date V isits Requested Visits Authorized [id number] Pending Review 04/28/2025 10/28/2026 1 1 Encounter Details Date Type Department Care Team (Late st Contact Info) Description 04/28/2025 Telephone [facility] Cardiothoracic [address], [address] [place] [address] Breanna Méndez, RN [facility] LUNG [id number] [address] [place] [address] Social History Tobacco Use Types Packs/Day Years [...] on file documented as of this encounter Miscellaneous Notes * Addendum Note - Breanna Méndez RN - 04/28/2025 2:31 PM EDTAddended by: BREANNA MÉNDEZ on: 04/28/2025 02:31 PM Modules accepted: Orders * Telephone Encounter - Breanna Méndez RN - 04/28/2025 2:20 PM EDT Left message for pt to call back regarding CT scan Allie Leos returned my call, explained need for repeat CT scan and referral to pulmonary documented in this encounter Plan of Treatment Upcoming Encounters Date Type Department Care Team (Late st Contact Info) Description 05/10/2025 9:00 AM EDT Office Visit [facility] [address], [address] [place] [address] Khushbu Gordon MD [address] [place] [address] Scheduled Orders Name Type Priority Associated Diagnoses Orde r Schedule CT Angio Chest Imaging Routine Lung nodule Expected: 07/05/2025 (Approximate), Expires: 10/30/2026 Scheduled Referrals Name Type Priority Associated Diagnoses Order Schedule Ambulatory referral to Pulmonology Outpatient Referral Routine Lung nodule Expected: 05/28/2025, Expires: 10/30/2026 documented as of this encounter Visit Diagnoses Diagnosis Lung nodule- Primary Other diseases of lung, not elsewhere classified documented in this encounter Additional Health Concerns Assessment Noted Time PHQ-9 Depression Total Score: 0 03/15/20 25 10:15 AM EDT A fall risk assessment has been complete d for the patient 03/29/2025 11:48 AM EDT A Body Mass Index follow-up plan has been documented for the patient 04/22/2025 3:06 PM EDT documented as of this encounter Care Teams Circulation Manager Relationship Specialty Start Date End Date Stefan Pérez MD [address] [place] [address] PCP - General 12/08/21 documented as of this encounter
--- OUTSIDE RECORDS SUMMARY | 2025-04-30 09:18 | XMS_ITS | Encounter Summary ---
Author Organization Healthcare Address [address] [place] [address] Care Team Providers Care Chaser Tar Name Role Phone Stefan Pérez MD Primary Care Provider Encounter Details Date Type Department Care Team (Late st Contact Info) Description 03/11/2025 Telephone [facility] [place] [address] [place] [address] Joanne Bolaños MD [address] [place] [address] Social History Tobacco Use Types Packs/Day Years [...] Questionnaire -2 Score 0 03/15/2025 10:15 AM EDJyothi Huynh * Question Answer Date of Assessment Author [...] television Not at all 03/15/2025 10:15 AM JOELT Jyothi Arrington Moving or speaking so slowly that other people could have noticed? Or the opposite - being so fidgety or restless that you have been moving around a lot more than usual. Not at all 03/15/2025 10:15 AM Jyothi Tamez Thoughts that you would be b china off or hurting yourself in some way Not at all 03/15/2025 10:15 AM Jyothi Tamez Patient Health Questionnaire -9 Score 0 03/15/2025 [...] as of this encounter Miscellaneous Notes * Telephone Encounter - Nicole Hansen - 03/23/2025 1:04 PM EDT Spoke to sig other Allie, explained handicap parking at [facility] and gave her [facility] transport number [phone] to be able to coordinate help to get to [place] clinic appt 03/29, as she does not have access to a motorized w/c. She will plan to call transport ahead of time and confirm they have a w/c to accommodate her size need, and to alert them re plan to call the morning of appt and have transport meet in [facility], as she can not walk far enough or stand to get to clinic without help. She has the liaison number to call if need to discuss any issues. * Telephone Encounter - Nicole Hansen - 03/16/2025 2:54 PM EDT Patient Name:Jake Pacheco : 1950 Date:03/16/2025 Affiliate Site: [facility] Referring Physician: [facility]/ Seen: Cardiology/Dr. Bolaños Future scheduling/testing needs: F/u with surgeon scheduled on 03/29/2025 This [facility] Nurse Liaison contacted Jake Pacheco following their appointment on 03/15/2025. Explained Liaison services offered through the [facility]. Inquired about appointment details and if patient had any questions or concerns. Asked patient if they were to have a follow up appointmentor testing. Patient denied need for assistance for scheduling at this time. Informed patient that liaisons are always available should a need/concern arise. Helping significant other, Allie, to be able to work out issues re getting to the clinic appt re w/cassistance. Liaison contact information provided. Will follow up to ensure continuum of care. Nicole Hansen [facility] Nurse Liaison [phone] * Telephone Encounter - Ana Cornelius PA - 03/11/2025 1:45 PM EDT Questions answered. Will keep 10am appointment. * Telephone Encounter - Ally Escalera - 03/11/2025 11:34 AM EDT Clinical Concern/Question Reason for Call: patient spouse Allie calling back, advised she got a wheelchair for her transportation so she can be there with patient at appointment would also like to see if his appointment can beany later in the day due to travel Best contact number: Other: [phone] Optimal time of day to reach caller: ANYTIME Additional comments/information from caller: None Note: Please do not reply to this message. Follow-up communication and further actions as a result of this message need to be communicated with the patient directly, if the patient is not active onMyChart. If the patient is active on MyChart, they will receive notification of the communication/outcome via MyChart. documented in this encounter Plan of Treatment Upcoming Encounters Date Type Department Care Team (Late st Contact Info) Description 05/10/2025 9:00 AM EDT Office Visit [facility] [address], [facility] [address] [place] [address] Khushbu Gordon MD [address] [facility] [address] [place] [address] documented as of this encounter Visit Diagnoses Not on filedocumented in this encounter Additional Health Concerns Assessment Noted Time A fall risk assessment has been complete d for the patient 01/01/2023 1:43 PM EDT A Body Mass Index follow-up plan has been documented for the patient 01/01/2023 6:03 PM EDT documented as of this encounter Care Teams Chaser Tar Relationship Specialty Start Date End Date Stefan Pérez MD [address] [facility] [address] [place] [address] PCP - General 12/08/21 documented as of this encounter
--- OUTSIDE RECORDS SUMMARY | 2025-04-30 09:19 | XMS_ITS | Encounter Summary ---
Author Organization [facility] Address [address] [place] [address] Care Team Providers Care Jammer Hooker Name Role Phone Stefan Pérez MD Primary Care Provider [phone] Encounter Details Date Type Department Care Team (Latest Contact Info) Description 03/29/2025 Travel Social History Tobacco Use Types Packs/Day [...] of Assessment Author 0 03/29/2025 11:47 AM Luz Zuluaga * Question Answer Date of Assessment Author Q1: How often do you have a drink containing alcohol? Never 03/29/2025 11:47 AM Mana Gomez Q2: How many drinks [...] things Not at all 03/29/2025 11:48 AM EDT Mana Gibbons Feeling down, depressed, or hopeless Not at all 03/29/2025 11:48 AM EDT Mana Gibbons Patient Health Questionnaire -2 Score 0 03/29/2025 11:48 AM EDT Mana Gibbons documented as of this encounter Plan of Treatment Upcoming Encounters Date Type Department Care Team (Late st Contact Info) Description 05/10/2025 9:00 AM EDT Office Visit [facility] [address] [facility] [address] [place] [address] Khushbu Gordon MD [address] [facility] [address] [place] [address] documented as of this encounter Visit Diagnoses [...] documented as of this encounter Care Teams Jammer Hooker Relationship Specialty Start Date End Date Stefan Pérez MD [address] [facility] [address] [place] [address] PCP - General 12/08/21 documented as of this encounter
--- OUTSIDE RECORDS SUMMARY | 2025-04-30 09:19 | XMS_ITS | Clinical Summary ---
Author Organization [facility] Address [address] [place] [address] Care Team Providers Care Supervisor Park Workers Name Role Phone Stefan Pérez MD Primary Care Provider [phone] Allergies No known active allergies Medications omeprazole (PriLOSEC) [address] capsule Take 1 capsule (20 mg total) by mouth 1 (one) time each day. Do not crush or chew. Take for 4 weeks post-operatively . 30 capsule 2 Active Additional Information Patient not taking.Reported on 04/12/2025 meloxicam (Mobic) 15 MG tablet Take 1 tablet (15 mg total) by mouth 1 (one) time each day. 30 tablet 2 Active Additional Information Patient not taking.Reported on 04/12/2025 senna-docusate sodium (Senokot-S) 8.6-50 MG tablet Take 1 tablet by mouth 1 (one) time each day. 30 tablet 2 Active Additional Information Patient not taking.Reported on 04/12/2025 acetaminophen (Tylenol) 500 MG tablet Take 2 tablets (1,000 mg total) by mouth every 8 (eight) hours if needed for mild pain. 100 tablet 1 2 Active traMADol (Ultram) 50 MG tablet Take 1 tablet (50 mg total) by mouth every 4 (four) hours if needed for severe pain. 60 tablet 2 Active gabapentin (Neurontin) 100 MG capsule Take 1 capsule (100 mg total) by mouth 3 (three) times a day. 30 capsule 2 Active Additional Information Patient not taking.Reported on 04/12/2025 bisoprolol-hydr oCHLOROthiazide (Ziac) 5-6.25 MG tablet 1 (one) time each day. 2 Active tiZANidine (Zanaflex) 4 MG tablet 1 (one) time each day. 2 Active aspirin 81 MG EC tablet Take 1 tablet by mouth daily. Active clopidogrel (Plavix) 75 MG tablet Take by mouth daily. Active atorvastatin (Lipitor) 20 MG tablet Take 1 tablet by mouth daily. Active losartan (Cozaar) 100 MG tablet Take 1 tablet by mouth daily. Active Active Problems Problem Noted Date Diagnosed Date Nonrheumatic mitral valve regurgitation 04/01/20 25 Encounter for preprocedural cardiovascular exami [facility] 04/01/2025 Heart failure 04/01/2025 BMI 28.0-28.9,adult 03/29/2025 COPD (chronic obstructive pulmonary disease) Nonrheumatic mitral (valve) insufficiency 2024 TIA (transient ischemic attack) 03/11/2025 S/P total left hip arthroplasty 12/26/2021 Primary localized osteoarthritis of left hip HTN (hypertension) 11/29/2021 High cholesterol 11/29/2021 Gastroesophageal reflux disease 11/29/2021 Primary osteoarthritis of left hip 11/07/2021 Overview (11/07/2021): Added automatically from request for surgery [id number] Smoking 11/07/2021 Encounters Date Type Department Care Team Description 04/28/2025 Telephone [facility] Cardiothoracic [address], [address] [place] [address] Marcelle Méndez RN 04/12/2025 12:20 PM EDT Office Visit [facility] Cardiothoracic [address], [address] [place] [address] Khushbu Gordon MD Mitral valve disease (Primary Dx) 04/12/2025 10:00 AM EDT - 04/12/2025 11:59 PM EDT Hospital Encounter [facility] [address] [facility] [address] [place] [address] Nonrheumatic mitral (valve) insufficiency; Suspected pulmonary hypertension Discharge Disposition: Home or Self Care 04/12/2025 9:00 AM EDT - 04/12/2025 9:59 AM EDT Hospital Encounter [facility] Pulmonary Function Testing [address] [place] [address] Nonrheumatic mitral (valve) insufficiency Discharge Disposition: Home or Self Care 04/12/2025 Travel 04/09/2025 11:10 AM EDT - 04/09/2025 11:59 PM EDT Hospital Encounter [facility] Radiology [address] [place] [address] Nonrheumatic mitral (valve) insufficiency Discharge Disposition: Home or Self Care 04/09/2025 8:45 AM EDT - 04/09/2025 9:45 AM EDT Surgery Cardiac Basket Grader [address] [place] [address] Joanne Bolaños MD Coronary angiography [20376 (CPT )] 04/09/2025 8:05 AM EDT - 04/09/2025 2:27 PM EDT Hospital Encounter Cardiac [facility] [address] [place] [address] Joanne Bolaños MD Nonrheumatic mitral valve regurgitation; Encounter for preprocedural cardiovascular examination; Heart failure, unspecified HF chronicity, unspecified heart failure type (CMS/HCC) Discharge Disposition: Home or Self Care 04/09/2025 Travel 04/01/2025 Orders Only [facility] [place] [address] [facility] [place] [address] Simran Ford RN Nonrheumatic mitral valve regurgitation (Primary Dx); Encounter for preprocedural cardiovascular examination; Heart failure, unspecified HF chronicity, unspecified heart failure type (CMS/HCC) 03/29/2025 11:20 AM EDT Consult [facility] Cardi[facility] [address], [address] [place] [address] Khushbu Gordon MD Nonrheumatic mitral (valve) insufficiency (Primary Dx); Suspected pulmonary hypertension 03/29/2025 Travel 03/15/2025 10:00 AM EDT Office Visit [facility] [address] [place] [address] Joanne Bolaños MD Nonrheumatic mitral valve regurgitation (Primary Dx); Heart failure, unspecified (CMS/HCC) 03/15/2025 Travel 03/11/2025 Telephone [facility] [address] [place] [address] Joanne Bolaños MD 03/11/2025 Abstract [facility] [address] [place] [address] Nimo Rubio 03/08/2025 Telephone [facility] [address] [place] [address] Nicole Hansen from Last 3 Months Family History Medical History Relation Name Comments Cancer Brother Heart attack Father Heart disease Father shingles Mother Anesthesia problems Neg Hx Malig Hyperthermia Neg Hx Relation Name Status Comments Brother Father Mother Social History Tobacco Use Types Packs/Day Years Used Date Smoking Tobacco: Former Cigarettes 1 30 Smokeless Tobacco: Never Tobacco Cessation:Counseling Given: Not Answered Alcohol Use Standard Drinks/Week Comments Not Currently [...] on file Sexual Orientation Not on file Last Filed Vital Signs Vital Sign Reading Time Taken Comments Blood Pressure 136/74 04/12/2025 11:32 AM EDT Pulse 54 04/12/2025 11:32 AM EDT Temperature 36.6 C (97.8 F) 04/09/2025 9:33 AM EDT Respiratory Rate 16 04/09/2025 12:0 0 PM EDT Oxygen Saturation 98% 04/12/2025 11: 32 AM EDT Inhaled Oxygen Concentration - - Weight 87.4 kg (192 lb 10.9 oz) 025 11:32 AM EDT Height 175.3 cm (5' 9 ) 04/12/2025 11:3 2 AM EDT Body Mass Index 28.45 04/12/2025 11:32 AM EDT Plan of Treatment Upcoming Encounters Date Type Department Care Team (Late st Contact Info) Description 05/10/2025 9:00 AM EDT Office Visit [facility] [address], [address] [place] [address] Khushbu Gordon MD [address] [place] [address] Health Maintenance Due Date Last Done Comments [facility]-Hepatitis C Screening 1950 [facility]Medicare Annual Wellness (AWV) 1950 [facility]-/Child/Adol SDOH Screenings 1950 [facility]- SDOH Screenings 1970 [facility]-Adult SDOH Screenings 1970 [facility]-DTaP,Tdap,and Td Vaccines (1 - Tdap) 1971 [facility]-Pneumococcal Vaccine: 50+ Years (1 of 2 - PCV) 1971 CT Colonography 1997 Colonoscopy 1997 FIT-DNA 1997 FIT 1997 FOBT 1997 Sigmoidoscopy 1997 [facility]-Colorectal Cancer Screening 1997 [facility]-Zoster Vaccines (1 of 2) 2002 [facility]-RSV Vaccine: 60+ Years or (1 - Risk 60-74 years 1-dose series) 2012 [facility]-Abdominal Aortic Aneurysm (AAA) Screening 2017 [facility]BA-EQIYD-22 Vaccine ( season) 2025 09/20/2023, 2021, 02/27/2021 [facility]-Influenza Vaccine (#1) 2025 06/24/2024 [facility]-Depression Screening 04/12/2026 04/12/2025, 02/24 [facility]-Lung Cancer Screening Discontinued 04/09/2025 [facility]-Obesity Intervention Completed 025, 04/01/2025, 03/29/2025, Additional history exists HPV Vaccines Aged Out No longer eligi ble based on patient's age to complete this topic [facility]-HIB Vaccines Aged Out No longer e ligible based on patient's age to complete this topic [facility]-Hepatitis A Vaccines Aged Out No longer eligible based on patient's age to complete this topic [facility]-IPV Vaccines Aged Out No longer e ligible based on patient's age to complete this topic [facility]-Rotavirus Vaccines Aged Out No lo nger eligible based on patient's age to complete this topic Medical Devices Implanted Type Area Engineering Test Mechanic Device Identifier Shelf Expiration Date Model / Serial / Lot Chg Shell R3 3 Hole Acet 56mm - [id number] Implanted:Qty: 1 on 12/08/2021 by Orlando Malloy MD at [facility] Left: Hip [employer]-[id number] 05/24/2031 [id number] / / [id number] Chg Screw Ref Spher Head 25mm - [id number] Implanted:Qty: 1 on 12/08/2021 by Orlando Malloy MD at [facility] Left: Hip [employer]-[id number] 06/20/2031 [id number] / / [id number] Chg Screw Ref Spher Head 30mm - [id number] Implanted:Qty: 1 on 12/08/2021 by Orlando Malloy MD at [facility] Left: Hip [employer]-[id number] 06/14/2031 [id number] / / [id number] Chg Lnr 20 Deg 56 - [id number] Implanted:Qty: 1 on 12/08/2021 by Orlando Malloy MD at [facility] Left: Hip [employer]-[id number] 08/21/2031 [id number] / / [id number] Chg Head Oxin Mod Fem 40mm - [id number] Implanted:Qty: 1 on 12/08/2021 by Orlando Malloy MD at [facility] Left: Hip [employer]-[id number] 07/29/2031 [id number] / / [id number] Chg Stem Syn Por Plus [place] Ho Sz - [id number] Implanted:Qty: 1 on 12/08/2021 by Orlando Malloy MD at [facility] Left: Hip [employer]-[id number] 05/21/2031 [id number] / / [id number] Chg Sleeve Tit Mod Neck +0 - [id number] Implanted:Qty: 1 on 12/08/2021 by Orlando Malloy MD at [facility] Left: Hip [employer]-[id number] 05/31/2031 [id number] / / [id number] Explanted Type Area Engineering Test Mechanic Device Identifier Shelf Expiration Date Model / Serial / Lot Liner Acet 0 Deg 56 - [id number] Explanted:Qty: 1 on 12/08/2021 by Orlando Malloy MD at [facility] Left: Hip [employer]-[id number] 06/20/2030 [id number] / / [id number] Procedures Procedure Name Priority Date/Time Associated Diagnosis Comments VAS US CAROTID DUPLEX BILATERAL Routine 04/12/2025 11:11 AM EDT Nonrheumatic mitral (valve) insufficiency Suspected pulmonary hypertension HC DIFFUSING CAPACITY - CARBON MONOXIDE DIFFUSING CAPACITY Routine 04/12/2025 10:43 AM EDT Nonrheumatic mitral (valve) insufficiency CT ANGIO ABDOMEN PELVIS W RUNOFF Routine 04/09/2025 1:32 PM EDT Nonrheumatic mitral (valve) insufficiency CT ANGIO CHEST Routine 04/09/2025 1:32 PM EDT Nonrheumatic mitral (valve) insufficiency CORONARY ANGIOGRAPHY Routine 04/09/2025 9:22 AM EDT Nonrheumatic mitral valve regurgitation Encounter for preprocedural cardiovascular examination Heart failure, unspecified HF chronicity, unspecified heart failure type (CMS/HCC) BASIC METABOLIC PANEL, PLASMA STAT 04/09/2025 8:45 AM EDT CBC W/O DIFFERENTIAL STAT 04/09/2025 8:45 AM EDT POCT CREATININE ISTAT UNSOLICITED RESULTS Routine 04/09/2025 8:43 AM EDT N-TERMINAL PROBNP, PLASMA Routine 03/15/2025 10:54 AM EDT Nonrheumatic mitral valve regurgitation Heart failure, unspecified (CMS/HCC) BASIC METABOLIC PANEL, PLASMA Routine 03/15/2025 10:54 AM EDT Nonrheumatic mitral valve regurgitation CBC W/O DIFFERENTIAL Routine 03/15/2025 10:54 AM EDT Nonrheumatic mitral valve regurgitation ECG ADULT Routine 03/15/2025 10:51 AM EDT Nonrheumatic mitral valve regurgitation from Last 3 Months Results * VAS US Carotid Duplex Bilateral [...] signing this report, I, the attending physician, attarmanithat I have personally reviewed the images/data for the aboveexamination(s) and I agree with the final edited report. Drafted by Agapito Peña RVT on 04/12/2025 11:55 AM Final report signed by Josephine Geller MD on 04/14/2025 12:12 AM us Khushbu Gordon MD CV VASCULAR PROCEDURES Final R esult * (ABNORMAL) PFT (Full) (04/12/2025 10:43 AM EDT) FDM9BHO 3.10(A) 5.01 - 8.64 L VYAIRE PFT FVC PRED 3.72 VYAIRE PFT FVC LLN 2.74 VYAIRE PFT FVCPREZSCORE -1.03 VYAIRE PFT FVCPRE%PRED 83 % % VYAIRE PFT FVC PREDAUT US_Quanjer GLI (2011) VYAIRE PFT FVC Z-SCORE -1.03 VYAIRE PFT FEV1 PRE 2.29(A) 3.51 - 6.23 L VYAIRE PFT FEV1 PRED 2.82 VYAIRE PFT FEV1 LLN 2.01 VYAIRE PFT NIU5TASCWASIV -1.08 VYAIRE PFT FEV1_Pre%Pred 81 % % VYAIRE PFT FEV1 PREDAUTH US_Quanjer GLI (2011) VYAIRE PFT FEV1 Z-SCORE -1.08 VYAIRE PFT FEV1/FVC PRE 73.96 59.73 - 85.00 % VYAIRE PFT AQZ7HQUVJMP 76 VYAIRE PFT NTJ3UTNFJQ 62 VYAIRE PFT JNH1RHIHVGEWJHTW -0.26 VYAIRE PFT JJA3BRXKJI%PRED 97 % % VYAIRE PFT MGR5XOSQPYAN US_Quanjer GLI (2011) VYAIRE PFT HRB3BCPMKHBCJ 0 VYAIRE PFT HBO06-24% PRE 1.69 1.37 - 6.00 L/s VYAIRE PFT MRS14-61%_Pred 2.14 VYAIRE PFT PPX7486%LLN 0.89 VYAIRE PFT FFX5767%PREZSCORE -0.51 VYAIRE PFT QEL0152%PRE%PRED 79 % % VYAIRE PFT NGC2047%[facility]anjer GLI (2011) VYAIRE PFT PEF PRE 6.12(A) 8.59 - 15.60 L/s VYAIRE PFT PEF PRED 7.39 VYAIRE PFT PEF LLN 5.27 VYAIRE PFT PEFPREZSCORE -0.98 VYAIRE PFT PEFPRE%PRED 83 % % VYAIRE PFT PEF PRED[facility] NHANES III (1998) VYAIRE PFT UTUMIUSLIHRCWBPJ0YGB 17.81(A) 28.22 - 50.94 ml/(min* mmHg) VYAIRE PFT DLCOSINGLEBREATH PRED 23.25 VYAIRE PFT DLCOSINGLEBREATH LLN 17.01 VYAIRE PFT DLCOSINGLEBREATH Z-SCORE -1.42 VYAIRE PFT DLCOSINGLEBREATH % PRED 76.6 % VYAIRE PFT DLCOSINGLEBREATH PRED[facility] TLCO GLI (2019) VYAIRE PFT DLCOSINGLEBREATH Z-SCORE -1.42 04/12/2025 10:40 AM EDT VYAIRE PFT IIFHQZMMDVEILVDAW1KC E 17.81(A) 28.22 - 50.94 ml/(min* mmHg) VYAIRE PFT DLCOCSINGLEBREATH PRED 23.25 VYAIRE PFT DLCOCSINGLEBREATH LLN 17.01 VYAIRE PFT DLCOCSINGLEBREATH Z-SCORE -1.42 VYAIRE PFT DLCOCSINGLEBREATH % PRED 76.6 % VYAIRE PFT DLCOCSINGLEBREATH PREDMc[facility] TLCO GLI (2019) VYAIRE PFT DETIBR3JTX 3.09 2.70 - 4.72 ml/(min* mmHg*L) VYAIRE PFT DLCOVAPRED 4.07 VYAIRE PFT DLCOVALLN 3.00 VYAIRE PFT DLCOVAZSCORE -1.50 VYAIRE PFT DLCOVA%PRED 76.0 % VYAIRE PFT DLCOVAPREDAUT Stanojevic TLCO GLI (2019) VYAIRE PFT DLCOVAZSCORE -1.50 04/12/2025 10:40 AM EDT VYAIRE PFT CLYCNFCMB3JIK 3.09 2.70 - 4.72 ml/(min* mmHg*L) VYAIRE PFT DLCOC SB/VA PRED 4.07 VYAIRE PFT DLCOC SB/VA LLN 3.00 VYAIRE PFT DLCOC SB/VA Z-SCORE -1.50 VYAIRE PFT DLCOC SB/VA % PRED 76.0 % VYAIRE PFT DLCOC SB/VA PREDAUT Stanojevic TLCO GLI (2019) VYAIRE PFT DLCOC SB/VA Z-SCORE -1.50 04/12 10:40 AM EDT VYAIRE PFT ACEORQVNCNDYPX7AXU 5.76(A) 8.50 - 12.80 L VYAIRE PFT VASINGLEBREATH PRED 5.75 VYAIRE PFT VASINGLEBREATH LLN 4.62 VYAIRE PFT VASINGLEBREATH Z-SCORE 0.02 VYAIRE PFT VASINGLEBREATH % PRED 100.3 % VYAIRE PFT VASINGLEBREATH PREDRE[facility] Stanojevic TLCO GLI (2019) VYAIRE PFT VASINGLEBREATH Z-SCORE 0.02 04/12/2025 10:40 AM EDT VYAIRE PFT DZXJQCEAQWFTKOF5LGG 2.91(A) 5.01 - 8.64 L VYAIRE PFT [...] % PRED 92.5 % VYAIRE PFT TLCSINGLEBREATH [facility] Lung volumes GLI (2019)__ VYAIRE PFT HB PRE 14.60 g(Hb)/dL VYAIRE PFT VDX6DZN 6.92(A) 9.06 - 13.98 L VYAIRE PFT TLCPRED 6.44 VYAIRE PFT TLCLLN 5.07 VYAIRE PFT TLCULN 7.82 VYAIRE PFT TLCZSCORE 0.58 VYAIRE PFT TLC%PRED 107.5 % VYAIRE PFT TLCPREDW[facility] Lung volumes GLI (2019)__ VYAIRE PFT [...] VYAIRE PFT IC%PRED 77.9 % VYAIRE PFT ICPREDWorcester [facility] Lung volumes GLI (2019)__ VYAIRE PFT ZHAAJJLA4YVA 4.68(A) 4.83 - 9.56 L VYAIRE PFT FRCPLETH PRED 3.46 VYAIRE PFT FRCPLETH LLN 2.41 VYAIRE PFT FRCPLETH ULN 4.78 VYAIRE PFT FRCPLETH Z-SCORE 1.53 VYAIRE PFT FRCPLETH % PRED 135.1 % VYAIRE PFT FRCPLETH PREDAUTH [facility] Lung volumes GLI (2019)__ VYAIRE PFT ULV7IAD 0.88 0.78 - 5.18 L VYAIRE PFT [...] [facility] Lung volumes GLI (2019)__ VYAIRE PFT RV%XGX5PHR 54.87(A) 24.90 - 48.85 % VYAIRE PFT [...] underwent pulmonary function testing today at the [facility]. The patient underwent spirometry, lung volumes by [...] measuring up to 15 mm (series 1, [id number] and 495). No pericardial or pleural effusion. [...] MD IMG CT PROCEDURES Final Result * CORONARY ANGIOGRAPHY (04/09/2025 9:22 AM EDT) [...] The patient was transferred back to the greens laborer holding area in good condition. Coronary Findings [...] CATH PROCEDURES Fin al Result * (ABNORMAL) Hemogram (CBC) (04/09/2025 8:45 AM EDT) Only the most recent of2 resultswithin the time period is included. WBC Count 7.08 3.70 - 10.30 10*3/uL LAB HEMATOLOGY METHOD 04/09/2025 9:12 AM EDT [facility] RBC Count 4.52(L) 4.60 - 6.10 10*6/uL LAB HEMATOLOGY METHOD 04/09/2025 9:12 AM EDT [facility] HGB 13.0(L) 13.7 - 17.5 g/dL LAB HEMATOLOGY METHOD 04/09/2025 9:12 AM EDT [facility] HCT 38.9(L) 40.0 - 51.0 % LAB HEMATOLOGY METHOD 04/09/2025 9:12 AM EDT [facility] Platelet Count 170 155 - 369 10*3/uL LAB HEMATOLOGY METHOD 04/09/2025 9:12 AM EDT [facility] MCV 86 79 - 98 fL LAB HEMATOLOGY METHOD 04/09/2025 9:12 AM EDT [facility] MCH 28.8 26.0 - 32.0 pg LAB HEMATOLOGY METHOD 04/09/2025 9:12 AM EDT [facility] MCHC 33.4 30.7 - 35.5 g/dL LAB HEMATOLOGY METHOD 04/09/2025 9:12 AM EDT [facility] RDW 13.2 11.5 - 14.5 % LAB HEMATOLOGY METHOD 04/09/2025 9:12 AM EDT [facility] MPV 10.8 8.8 - 12.5 fL LAB HEMATOLOGY METHOD 04/09/2025 9:12 AM EDT [facility] nRBC 0.0 <=0.0 per 100 WBCs LAB HEMATOLOGY METHOD 04/09/2025 9:12 AM EDT [facility] Blood Venous blood specimen / Unknown Venipuncture / Unknown 04/09/2025 8:45 AM EDT 04/09/2025 8:50 AM EDT us Joanne Bolaños MD LAB BLOOD ORDERABLES Final Res ult [facility] [address] [place] [address] * (ABNORMAL) Basic metabolic panel (04/09/2025 8:45 AM EDT) Only the most recent of2 resultswithin the time period is included. Glucose, Plasma 95 74 - 99 mg/dL 04/09/2025 9:20 AM EDT [facility] BUN, Plasma 14 8 - 23 mg/dL 04/09/2025 9:20 AM EDT [facility] Creatinine, Plasma 0.86 0.70 - 1.20 mg/dL 04/09/2025 9:20 AM EDT [facility] BUN/Creatinine Ratio 16 04/09/2025 9:20 AM EDT [facility] Sodium, Plasma 139 136 - 145 mmol/L 04/09/2025 9:20 AM EDT [facility] Potassium, Plasma 3.8 3.6 - 4.9 mmol/L 04/09/2025 9:20 AM EDT [facility] Chloride, Plasma 103 97 - 107 mmol/L 04/09/2025 9:20 AM EDT [facility] CO2, Plasma 26 22 - 29 mmol/L 04/09/2025 9:20 AM EDT [facility] Anion Gap 10 6 - 16 mmol/L 04/09/2025 9:20 AM EDT [facility] Total Calcium, Plasma 8.8(L) 8.9 - 10.2 mg/dL 04/09/2025 9:20 AM EDT [facility] eGFRcr 91.4 mL/min/1.7 3m*2 04/09/2025 9:20 AM EDT [facility] Comment:Reported eGFRcr in m L/min/1.73m2 is based the CKD-EPI 2020 equation that does not use a race coefficient. Blood Venous blood specimen / Unknown Venipuncture / Unknown 04/09/2025 8:45 AM EDT 04/09/2025 8:51 AM EDT us Joanne Bolaños MD LAB BLOOD ORDERABLES Final Res ult [facility] [address] [place] [address] * POCT creatinine (04/09/2025 8:43 AM EDT) [facility] Creatinine, Point of Care 0.9 0.7 - 1.2 mg/dL 04/09/2025 8:47 AM EDT [facility] POCT eGFR 90 mL/min/1. 73m*2 04/09/2025 8:47 AM EDT [facility] Keypunch Operator ID Ruth Leija 04/09/2025 8:47 AM EDT [facility] Device ID [id number] 04/09/2025 8:47 AM EDT HEALTHC[facility] LAB Comment 04/09/2025 8:47 AM EDT [facility] Comment:Testing performed on i-STAT at the point of care. Reported eGFRcr in mL/min/1.73m2 is based the CKD-EPI 2020 equation that does not use a race coefficient. Blood Venous blood specimen / Unknown 04/09/2025 8:43 AM EDT 04/09/2025 8:47 AM EDT us Joanne Bolaños MD LAB POINT OF CARE TE ST DOCKED DEVICE UNSOLICITED RESULTS Final Result Performing Organization Address City/[facility] Co de Phone Number [facility] [address] [facility] [address] [place] [address] * N-Terminal Probnp, Plasma (03/15/2025 10:54 AM EDT) N-Terminal, PROBNP, Plasma 699 0 - 899 pg/mL 03/15/2025 11:50 AM EDT [facility] Blood Venous blood specimen / Unknown Venipuncture / Unknown 03/15/2025 10:54 AM EDT 03/15/2025 11:13 AM EDT us Ana CHRISTIE LAB BLOOD ORDERABLES Fi nal Result Performing Organization Address [facility] Co de Phone Number [facility] [address] [place] [address] * ECG Adult (Now - Performed in your clinic) (03/15/2025 10:51 AM EDT) EKG DIAGNOSIS CLASS Borderline Normal MUSE ECG Ventricular Rate 48 BPM MUSE ECG Atrial Rate 48 BPM MUSE ECG AL Interval 168 ms MUSE ECG QRSD Interval 94 ms MUSE ECG QT Interval 440 ms MUSE ECG QTC Interval 393 ms MUSE ECG P [place] 40 degrees MUSE ECG R [place] 65 degrees MUSE ECG T Wave [place] 59 degrees MUSE ECG Diagnosis Sinus bradycardia with sinus arrhythmia MUSE ECG Diagnosis Otherwise normal ECG MUSE ECG Diagnosis MUSE ECG Diagnosis Confirmed by Orlando Rodriguez ([id number]) on 03/15/2025 5:10:54 PM MUSE ECG 03/15/2025 10:5 1 AM EDT 03/15/2025 5:10 PM EDT us Ana CHRISTIE ECG ORDERABLES Final R esult Performing Organization Address City/[facility] Co de Phone Number MUSE ECG from Last 3 Months Insurance 2019 [place] [id number] MEDICARE Advance Directives * Full Code (Latest Code Status on File) Date Activated Date Inactivated Comments 04/09/2025 9:34 AM 04/09/2025 4:27 PM Question Answer Comments I have reviewed the capacity from the link above and, if needed, have updated to appropriate status: Yes * Full Code Date Activated Date Inactivated Comments 12/08/2021 8:54 AM 12/09/2021 4:02 PM Question Answer Comments Patient has decision-making capacity? Yes Care Teams Supervisor Park Workers Relationship Specialty Start Date End Date Stefan Pérez MD [address] [place] [address] PCP - General 12/08/21
--- OUTSIDE RECORDS SUMMARY | 2025-04-30 09:19 | XMS_ITS | Encounter Summary ---
Author Organization Healthcare Address [address] [place] [address] Care Team Providers Care Inspector Golf Ball Name Role Phone Stefan Pérez MD Primary Care Provider Encounter Details Date Type Department Care Team (Latest Contact Info) Description 04/09/2025 Travel Social History Tobacco Use Types Packs/Day [...] on file documented as of this encounter Plan of Treatment Upcoming Encounters Date Type Department Care Team (Late st Contact Info) Description 05/10/2025 9:00 AM EDT Office Visit [facility] [address], [facility] [address] [place] [address] Khushbu Gordon MD [address] [place] [address] documented as of this encounter Visit Diagnoses [...] documented as of this encounter Care Teams Inspector Golf Ball Relationship Specialty Start Date End Date Stefan Pérez MD [address] [place] [address] PCP - General 12/08/21 documented as of this encounter
--- OUTSIDE RECORDS SUMMARY | 2025-04-30 09:19 | XMS_ITS | Encounter Summary ---
Author Organization Healthcare Address [address] [place] [address] Care Team Providers Care Tool And Die Manager Name Role Phone Stefan Pérez MD Primary Care Provider [phone] Encounter Details Date Type Department Care Team ([facility] Contact Info) Description 07/17/2024 Orders Only External Location [address] [place] [address] Moi Joseph MD [address] [place] [address] Social History Tobacco Use Types Packs/Day Years Used Date Smoking Tobacco: Former Cigarettes 1 30 Smokeless Tobacco: Never Alcohol Use Standard Drinks/Week Comments Not Currently 0 (1 standard drink = 0.6 oz pure alcohol) Hx ETOH abuse none x 15 years Sex and Gender Information Value Date Recorded Sex Assigned at Not on file Legal Sex Male 5:55 PM EDT Gender Identity Not on file Sexual Orientation Not on file documented as of this encounter Plan of Treatment Upcoming Encounters Date Type Department Care Team (Late Contact Info) Description 05/10/2025 9:00 AM EDT Office Visit [facility] [address], [address] [place] [address] Khushbu Gordon MD [address] [place] [address] documented as of this encounter Procedures Procedure Name Priority Date/Time Associated Diagnosis Comments MR OUTSIDE IMAGES 07/17/2024 10:21 AM EST documented in this encounter Results * MR transfer of outside films (07/17/2024 10:21 AM EST) Anatomical Region Laterality Modality Magnetic Resonan ce 07/17/2024 10:2 1 AM EST Moi Joseph MD IMG MRI PROCEDURES Final Result documented in this encounter Visit Diagnoses Not on filedocumented in this encounter Additional Health Concerns Assessment Noted Time A fall risk assessment has been complete d for the patient 01/01/2023 1:43 PM EDT A Body Mass Index follow-up plan has been documented for the patient 01/01/2023 6:03 PM EDT documented as of this encounter Care Teams Tool And Die Manager Relationship Specialty Start Date End Date Stefan Pérez MD [address] [place] [address] [address] [place] [address] PCP - General 12/08/21 documented as of this encounter
--- OUTSIDE RECORDS SUMMARY | 2025-04-30 09:19 | XMS_ITS | Encounter Summary ---
Author Organization Healthcare Address [address] [place] [address] Care Team Providers Care Mosaicist Name Role Phone Stefan Pérez MD Primary Care Provider [phone] Encounter Details Date Type Department Care Team (Late st Contact Info) Description 03/11/2025 Abstract [facility] [place] [facility] [address] [place] [address] [place] [address] Social History Tobacco Use Types Packs/Day Years [...] Description 05/10/2025 9:00 AM EDT Office Visit [place] [facility] [address] [facility] [address] [place] [address] Khushbu Gordon MD [address] [place] [address] documented as of this encounter Visit Diagnoses Not on filedocumented in this encounter Additional Health Concerns Assessment Noted Time A fall risk assessment has been complete d for the patient 01/01/2023 1:43 PM EDT A Body Mass Index follow-up plan has been documented for the patient 01/01/2023 6:03 PM EDT documented as of this encounter Care Teams Mosaicist Relationship Specialty Start Date End Date Stefan Pérez MD [address] [place] [address] [address] [place] [address] PCP - General 12/08/21 documented as of this encounter
--- OUTSIDE RECORDS SUMMARY | 2025-04-30 09:19 | XMS_ITS | Encounter Summary ---
Author Organization Healthcare Address [address] [place] [address] Care Team Providers Care Data Processing Consultant Name Role Phone Stefan Pérez MD Primary Care Provider [phone] Encounter Details Date Type Department Care Team ([facility] Contact Info) Description 07/22/2024 Orders Only External Location [address] [place] [address] Moi Joseph MD [address] [place] [address] Social History Tobacco Use Types Packs/Day Years [...] Description 05/10/2025 9:00 AM EDT Office Visit [place] [facility] [address], [address] [place] [address] Khushbu Gordon MD [address] [place] [address] documented as of this encounter Procedures Procedure Name Priority Date/Time Associated Diagnosis Comments US OUTSIDE IMAGES 07/22/2024 10:14 AM EST documented in this encounter Results * US OUTSIDE IMAGES (07/22/2024 10:14 AM EST) Anatomical Region Laterality Modality Ultrasound 07/22/2024 10:1 4 AM EST us Moi Joseph MD IMG US PROCEDURES Final Result documented in this encounter Visit Diagnoses Not on filedocumented in this encounter Additional Health Concerns Assessment Noted Time A fall risk assessment has been complete d for the patient 01/01/2023 1:43 PM EDT A Body Mass Index follow-up plan has been documented for the patient 01/01/2023 6:03 PM EDT documented as of this encounter Care Teams Data Processing Consultant Relationship Specialty Start Date End Date Stefan Pérez MD [address] [place] [address] [address] [place] [id number] PCP - General 12/08/21 documented as of this encounter
--- OUTSIDE RECORDS SUMMARY | 2025-04-30 09:19 | XMS_ITS | Encounter Summary ---
Author Organization Healthcare Address [address] [place] [address] Care Team Providers Care Motion Picture Set Worker Name Role Phone Stefan Pérez MD Primary Care Provider [phone] Encounter Details Date Type Department Care Team (Late st Contact Info) Description 04/01/2025 Orders Only [facility] [place] [facility] [address] [place] [address] Simran Ford, RN [facility] Nonrheumatic mitral valve regurgitation (Primary Dx); Encounter for preprocedural cardiovascular examination; Heart failure, unspecified HF chronicity, unspecified heart failure type (CMS/HCC) Social History Tobacco Use Types Packs/Day [...] encounter Miscellaneous Notes * Progress Notes - Simran Ford, RN - 04/01/2025 12:16 PM EDT Order placed for cath per Dr. Gordon's last note for cardiac surgery work up documented in this encounter Plan of Treatment Upcoming Encounters Date Type Department Care Team (Late st Contact Info) Description 05/10/2025 9:00 AM EDT Office Visit [facility] [address], [address] [place] [address] Khushbu Gordon MD [address] [place] [address] documented as of this encounter Visit Diagnoses Diagnosis Nonrheumatic mitral valve regurgitation- Primary Encounter for preprocedural cardiovascular examination Heart failure, unspecified HF chronicity, unspecified heart failure type (CMS/HCC) documented in this encounter Additional Health Concerns Assessment Noted Time PHQ-9 Depression Total Score: 0 03/15/20 25 10:15 AM EDT A fall risk assessment has been complete d for the patient 03/29/2025 11:48 AM EDT A Body Mass Index follow-up plan has been documented for the patient 04/07/2025 7:35 AM EDT documented as of this encounter Care Teams Motion Picture Set Worker Relationship Specialty Start Date End Date Stefan Pérez MD [facility] [address] [address] PCP - General 12/08/21 documented as of this encounter
--- OUTSIDE RECORDS SUMMARY | 2025-04-30 09:19 | XMS_ITS | Encounter Summary ---
Author Organization Healthcare Address [address] [place] [address] Care Team Providers Care Senior Industrial Engineer Name Role Phone Stefan Pérez MD Primary Care Provider [phone] Encounter Details Date Type Department Care Team ([facility] Contact Info) Description 05/27/2024 Orders Only External Location [address] [place] [address] Stefan Pérez MD [address] [facility] [address] [place] [address] Social History Tobacco Use Types Packs/Day Years [...] Description 05/10/2025 9:00 AM EDT Office Visit [place] [facility] [address], [facility] [address] [place] [address] Khushbu Gordon MD [address] [place] [address] documented as of this encounter Procedures Procedure Name Priority Date/Time Associated Diagnosis Comments US OUTSIDE IMAGES 05/27/2024 2:56 PM EDT documented in this encounter Results * US OUTSIDE IMAGES (05/27/2024 2:56 PM EDT) Anatomical Region Laterality Modality Ultrasound 05/27/2024 2:56 PM EDT us Stefan Pérez MD IMG US PROCEDURES Final Result documented in this encounter Visit Diagnoses Not on filedocumented in this encounter Additional Health Concerns Assessment Noted Time A fall risk assessment has been complete d for the patient 01/01/2023 1:43 PM EDT A Body Mass Index follow-up plan has been documented for the patient 01/01/2023 6:03 PM EDT documented as of this encounter Care Teams Senior Industrial Engineer Relationship Specialty Start Date End Date Stefan Pérez MD [address] [place] [address] [address] [place] [address] PCP - General 12/08/21 documented as of this encounter
--- OUTSIDE RECORDS SUMMARY | 2025-04-30 09:19 | XMS_ITS | Encounter Summary ---
Author Organization Healthcare Address [address] [place] [address] Care Team Providers Care Multimedia Technician Name Role Phone Stefan Pérez MD Primary Care Provider [phone] Encounter Details Date Type Department Care Team ([facility] Contact Info) Description 07/17/2024 Orders Only External Location [address] [place] [address] Moi Joseph MD [address] [place] [address] Social History Tobacco Use Types Packs/Day Years [...] Description 05/10/2025 9:00 AM EDT Office Visit [place] [facility] [address], [address] [place] [address] Khushbu Gordon MD [address] [place] [address] documented as of this encounter [...] documented as of this encounter Care Teams Multimedia Technician Relationship Specialty Start Date End Date Stefan Pérez MD [address] [place] [address] [address] [place] [address] PCP - General 12/08/21 documented as of this encounter
--- OUTSIDE RECORDS SUMMARY | 2025-04-30 09:19 | XMS_ITS | Encounter Summary ---
Author Organization Healthcare Address [address] [place] [address] Care Team Providers Care Degreasing Solution Reclaimer Name Role Phone Pcp, No Primary Care Provider Stefan Manzo MD Primary Care Provider [phone] Encounter Details Date Type Department Care Team (Late st Contact Info) Description 07/26/2021 Orders Only External Location [address] [place] [address] Provider, External Social History Tobacco Use Types Packs/Day Years Used Date Smoking Tobacco: Never Assessed Sex and Gender Information Value Date Recorded Sex Assigned at Not on file Legal Sex Male 5:55 PM EDT Gender Identity Not on file Sexual Orientation Not on file documented as of this encounter Plan of Treatment Upcoming Encounters Date Type Department Care Team (Late st Contact Info) Description 05/10/2025 9:00 AM EDT Office Visit [facility] [address], [facility] [address] [place] [address] Khushbu Gordon MD [address] [facility] [address] [place] [address] documented as of this encounter Procedures Procedure Name Priority Date/Time Associated Diagnosis Comments XR OUTSIDE IMAGES 07/26/2021 3:47 PM EST documented in this encounter Results * XR OUTSIDE IMAGES (07/26/2021 3:47 PM EST) Anatomical Region Laterality Modality Radiographic Lyndsey ging 07/26/2021 3:47 PM EST us External Provider IMG XR PROCEDURES Final Result documented in this encounter Visit Diagnoses Not on filedocumented in this encounter Care Teams Degreasing Solution Reclaimer Relationship Specialty Start Date End Date Pcp, Yenny [address] [place] [address] PCP - General Family Medicine 11/07/21 12/07/21 Stefan Pérez MD [address] [place] [address] PCP - General 12/08/21 documented as of this encounter
--- OUTSIDE RECORDS SUMMARY | 2025-04-30 09:19 | XMS_ITS | Encounter Summary ---
Author Organization [facility] Address [address] [place] [id number] Care Team Providers Care Agronomy Specialist Name Role Phone Stefan Pérez MD Primary Care Provider Encounter Details Date Type Department Care Team (Late st Contact Info) Description 03/08/2025 Telephone [facility] [place] [facility] [address] [place] [address] [place] [address] Social History Tobacco Use Types Packs/Day Years [...] * Telephone Encounter - Nicole Hansen - 03/08/2025 12:43 PM EDT Patient Name: Jake Pacheco :1950 Date:03/08/2025 Affiliate site:[facility] Referring Physician:Dr. Joseph Education/ Information provided: This Nurse Liaison spoke with Jake [place]re[place] and his significant other, Allie, prior to an appointment on 03/15/2025. Explained nurse liaison services offered through [facility]. Discussed appointment necessity, and subspecialty clinic the pt will be seeing. Patient verbalizes understanding. Patient denied any barriers to arriving to clinic visit. All questions answered. Provided patientwith liaison contact information and encouraged patient to call with any questions, concerns or assistance needs. Will follow up with patient re issue re needing w/c for significant other is worked out and then will f/u after appt. Nicole Hansen [facility] Nurse Liaison [phone] documented in this encounter Plan of Treatment Upcoming Encounters Date Type Department Care Team (Late st Contact Info) Description 05/10/2025 9:00 AM EDT Office Visit [facility] [address], [address] [place] [address] Khushbu Gordon MD [address] [place] [address] documented as of this encounter Visit Diagnoses Not on filedocumented in this encounter Additional Health Concerns Assessment Noted Time A fall risk assessment has been complete d for the patient 01/01/2023 1:43 PM EDT A Body Mass Index follow-up plan has been documented for the patient 01/01/2023 6:03 PM EDT documented as of this encounter Care Teams Agronomy Specialist Relationship Specialty Start Date End Date Stefan Pérez MD [address] [facility] [address] [place] [address] PCP - General 12/08/21 documented as of this encounter
--- OUTSIDE RECORDS SUMMARY | 2025-04-30 09:19 | XMS_ITS | Encounter Summary ---
Author Organization Healthcare Address [address] [place] [address] Care Team Providers Care Operating Room Nurse Name Role Phone Stefan Pérez MD Primary Care Provider Encounter Details Date Type Department Care Team (Late Contact Info) Description 05/27/2024 Orders Only External Location [address] [place] [address] Provider, External Social History Tobacco Use Types [...] Upcoming Encounters Date Type Department Care Team ([facility] Contact Info) Description 05/10/2025 9:00 AM EDT Office Visit [place] [facility] [address], [address] [place] [address] Khushbu Gordon MD [address] [place] [address] documented as of this encounter Procedures Procedure Name Priority Date/Time Associated Diagnosis Comments US OUTSIDE IMAGES 05/27/2024 2:43 PM EDT documented in this encounter Results * US OUTSIDE IMAGES (05/27/2024 2:43 PM EDT) Anatomical Region Laterality Modality Ultrasound 05/27/2024 2:43 PM EDT us External Provider IMG US PROCEDURES Final Result documented in this encounter Visit Diagnoses Not on filedocumented in this encounter Additional Health Concerns Assessment Noted Time A fall risk assessment has been complete d for the patient 01/01/2023 1:43 PM EDT A Body Mass Index follow-up plan has been documented for the patient 01/01/2023 6:03 PM EDT documented as of this encounter Care Teams Operating Room Nurse Relationship Specialty Start Date End Date Stefan Pérez MD [address] [place] [address] [address] [place] [address] PCP - General 12/08/21 documented as of this encounter
--- OUTSIDE RECORDS SUMMARY | 2025-04-30 09:20 | XMS_ITS | Encounter Summary ---
Author Organization Healthcare Address [address] [place] [address] Care Team Providers Care Orange Picker Machine Operator Name Role Phone Stefan Pérez MD Primary Care Provider [phone] Encounter Details Date Type Department Care Team (Latest Contact Info) Description 04/12/2025 Travel Social History Tobacco Use Types Packs/Day [...] on one occasion? Never 04/12/2025 11:38 AM EDT Mana Gibbons * Over the past 2 weeks, how often have you been bothered by any of the following problems? Question Answer Date of Assessment Author Little interest or pleasure in doing things Not at all 04/12/2025 11:39 AM JOELT Mana Gibbons Feeling down, depressed, or hopeless Not at all 04/12/2025 11:39 AM EDT Mana Gibbons Patient Health Questionnaire -2 Score 0 04/12/2025 11:39 AM EDT Mana Gibbons documented as of this encounter Plan of Treatment Upcoming Encounters Date Type Department Care Team (Late st Contact Info) Description 05/10/2025 9:00 AM EDT Office Visit [facility] [address] [facility] [address] [place] [address] Khushbu Gordon MD [address] [facility] [address] [place] [address] documented as of this encounter Visit Diagnoses [...] documented as of this encounter Care Teams Orange Picker Machine Operator Relationship Specialty Start Date End Date Stefan Pérez MD [address] [facility] [address] [place] [address] PCP - General 12/08/21 documented as of this encounter
== END 2025-04-28 23:59 ==
LOC: LAB.DROPOF 04-30 09:17
PROVIDERS: PCP Internal Medicine; Visit Provider Internal Medicine
DX: I34.0 Nonrheumatic mitral (valve) insufficiency (principal); I10 Essential (primary) hypertension; Z12.5 Encounter for screening for malignant neoplasm of prostate; E78.5 Hyperlipidemia, unspecified; D64.9 Anemia, unspecified
CPT/HCPCS: 80053; 80061; 83540; 83550; 85025; G0103

== ENCOUNTER 2025-07-29 11:44 | Outpatient (CLI) | payer MEDICARE, SELFPAY ==
--- OUTSIDE RECORDS SUMMARY | 2025-06-18 10:00 | XMS_ITS | Encounter Summary ---
Author Organization Healthcare Address [address] [place] [address] Care Team Providers Care Paper Cup Handle Machine Operator Name Role Phone Stefan Pérez MD Primary Care Provider [phone] Joanne Bolaños MD Unavailable [phone] Encounter Details Date Type Department Care Team (Late st Contact Info) Description 06/18/2025 11:00 AM EDT Pre-Admission Testing [place] Clinic Pre-op Clinic [address], [address] [place] [address] Social History Tobacco Use Types Packs/Day Years Used Date Smoking Tobacco: Former Cigarettes 1 64 S tarted: 1960 Smokeless Tobacco: Never Tobacco Cessation:Counseling Given: Not Answered Alcohol Use Standard Drinks/Week Comments Not Currently 0 (1 standard drink = 0.6 oz pure alcohol) Hx ETOH abuse none x 15 years (2009). PHQ-2 Answer Date Recorded Patient Health Questionnaire-2 Score 0 04/12/2025 PHQ-9 Answer Date Recorded Patient Health Questionnaire-9 Score 0 03/15/2025 AUDIT-C Answer Date Recorded Frequency of Alcohol Consumption Not on file 05/28/2025 Q2: How many drinks containi ng alcohol do you have on a typical day when you are drinking? Patient does not drink Frequency of Binge Drinking Not on file 10/2024 Sex and Gender Information Value Date Recorded Sex Assigned at Not on file Legal Sex Male 5:55 PM EDT Gender Identity Not on file Sexual Orientation Not on file documented as of this encounter Last Filed Vital Signs Vital Sign Reading Time Taken Comments Blood Pressure - - Pulse - - Temperature - - Respiratory Rate - - Oxygen Saturation - - Inhaled Oxygen Concentration - - Weight 91.2 kg (201 lb) 06/18/2025 10:51 AM EDT Height - - Body Mass Index 29.68 05/28/2025 1:02 PM EDT documented in this encounter Miscellaneous Notes * PAT Evaluation Note - Itzel Goldberg APRN - 06/18/2025 11:00 AM EDT Images from the original note were not included. HPI Jake Pacheco is a 75 y.o. male who presents with Pre-op Diagnosis * Mitral valve insufficiency, unspecified etiology [I34.0] now scheduled for REPAIR OR REPLACEMENT,MITRAL VALVE (Right). Past Medical History[1] Family History[2] Social History[3] SURGICAL HISTORY: Surgical History[4] Allergies[5] MEDICATIONS: Current Medications[6] 06/18/2025 10:51 AM Vitals Weight (kg) 91.173 kg BMI 29.68 kg/m2 BSA (m2) 2.11 m2 06/2024 - CMR - 06/2024 - VINOD - Lab Results Component Value Date WBC 7.08 04/09/2025 HGB 13.0 (L) 04/09/2025 HCT 38.9 (L) 04/09/2025 MCV 86 04/09/2025 PLT 170 04/09/2025 Lab Results Component Value Date GLUCOSE 95 04/09/2025 CALCIUM 8.8 (L) 04/09/2025 NA 139 04/09/2025 K 3.8 04/09/2025 CO2 26 04/09/2025 CL 103 04/09/2025 BUN 14 04/09/2025 CREATININE 0.86 04/09/2025 04/12/25 - Carotids - Right: ICA velocities do not demonstrate evidence of a hemodynamically significant stenosis (less than 50%). Left: ICA velocities do not demonstrate evidence of a hemodynamicallysignificant stenosis (less than 50%). Vertebral artery flow is antegrade, bilaterally. Subclavian artery flow is multiphasic, bilaterally. ROS Anesthesia: Date of last anesthetic: 12/08/21 - GA with ARTHROPLASTY, HIP, TOTAL (Left: Hip). No problems with GA. Successful airway: ETT Cuffed: yes Successful intubation technique: direct laryngoscopy Facilitating devices/methods: cricoid pressure and intubating stylet Endotracheal tube insertion site: oral Blade: Ember Blade size: #3 ETT size (mm): 7.5 Cormack-Lehane Classification: grade I - full view of glottis Placement verified by: chest auscultation and capnometry Measured from: teeth ETT to teeth (cm): 22 Number of attempts at approach: 1. history of previous anesthesia. Does not have a history of anesthetic complications, malignant hyperthermia, motion sickness, obstructive sleep apnea and PONV. Anesthesia ROS additional comments: Can lay flat on back or side. Able to move head/neck without trouble, and able to open mouth wide, with pt.'s S.OAdarsh Kelley, Via phone. Cardiovascular: Patient's ECG reviewed. CAD ([facility] with nonobstructive CAD.), CHF (was noted in chart, S.O. denies.),hyperlipidemia (not taking med for.), a murmur and valvular heart disease (Mitral valve insufficiency, Non-Rheumatic Mitral Valve regurgitation. severe symptomatic mitral regurgitation. severe symptomatic mitral regurgitation. severe symptomatic mitral regurgitation.). Does not have angina, atrial fibrillation, dyspnea, dysrhythmias, past NE or syncope. hypertension: is well controlled. Exercise tolerance is 2 flights of stairs. Does not have chest pain. Cardio additional comments: 04/09/25 - CTA c/a/p - No evidence of aortoiliac disease on CTA. 04/09/25 - Cardiac Cath Results - Non - Obstructive CAD in mid LAD and OM1. . Respiratory: Does not have home oxygen. Patient has no dyspnea.no asthma: COPD (uses inhalers. follows up with PCP.): breathing at baseline.Has not had an upper respiratory infection in last 30 days. Has not had COVID in the last 30 days. Respiratory ROS additional comments: 05/28/25 - Pulm. - Multiple lung nodules are seen on the ct of the chest on 04/09/2025. With multiple lung nodules it is less likely these are malignant, per Carlos A Enrique MD. 04/12/25 - PFTs - which were normal. HEENT: missing teeth (edentulous. has top & bottom dentures.).Does not have difficulty swallowing, chipped teeth or loose teeth.Does not have temporomandibular joint syndrome. Neurological: no seizures: Did not have a cerebrovascular accident.TIA (TIA/CVA (05/2024): symptoms were talking jibberish. symptoms returned back to normal within 2 days. Pt. takes BASA & Plavix.). Musculoskeletal: arthritis (Hx OA.). Does not have multiple sclerosis. Autoimmune: Does not have lupus. Integumentary: Negative skin ROS. Gastrointestinal: GERD (takes prn med only.): well controlled.Does not have end stage liver disease or hepatitis. Genitourinary: Negative ROS. Does not have renal disease. Hematological/Lymphatic: History of no DVT. History of no pulmonary embolism. no history of chemotherapy no history of radiation Does not have AIDS, HIV, MRSA or tuberculosis. Hem/Lymph ROS additional comments: Takes EC aspirin 81 mg daily and Plavix daily for TIA history. Endocrine/Metabolic: Negative endocrine ROS. does not have diabetes mellitus. Does not have thyroid disorder. Does not have gout. Lab Results Component Value Date WBC 7.08 04/09/2025 HGB 13.0 (L) 04/09/2025 HCT 38.9 (L) 04/09/2025 MCV 86 04/09/2025 PLT 170 04/09/2025 Lab Results Component Value Date GLUCOSE 95 04/09/2025 BUN 14 04/09/2025 CREATININE 0.86 04/09/2025 BCR 16 04/09/2025 NA 139 04/09/2025 K 3.8 04/09/2025 CL 103 04/09/2025 CO2 26 04/09/2025 ALBUMIN 4.3 11/29/2021 Lab Results Component Value Date HGBA1C 5.5 11/29/2021 No results found for: INR , PROTIME Visit Vitals Wt 91.2 kg (201 lb) BMI 29.68 kg/m?? Smoking Status Former BSA 2.11 m?? Physical Exam Anesthesia Plan ASA 3 Anesthesia technique(s) discussed with the patient/family: general Comment: GRISELDA phone screen with pt.'s Timothy Kelley, Via phone. Itzel Goldberg APRN [1] Past Medical History: Diagnosis Date Hypertension Osteoarthritis [2] Family History Problem Relation Name Age of Onset Other (shingles) Mother Heart disease Father Heart attack Father Cancer Brother Anesthesia problems Neg Hx Malig Hyperthermia Neg Hx [3] Social History Tobacco Use Smoking status: Former Average packs/day: 1 pack/day for 64.0 years (64.0 ttl pk-yrs) Types: Cigarettes Start date: 1957 Smokeless tobacco: Never Vaping Use Vaping status: Never Used Substance Use Topics Alcohol use: Not Currently Comment: Hx ETOH abuse none x 15 years (2009). Drug use: Not Currently Types: Marijuana Comment: quit marijuana 1999. [4] Past Surgical History: Procedure Laterality Date APPENDECTOMY CARDIAC CATHETERIZATION 04/09/2025 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 HIP ARTHROPLASTY Left 12/08/2021 Left DONELL. TOTAL HIP ARTHROPLASTY [5] No Known Allergies [6] Current Outpatient Medications: acetaminophen, Take 2 tablets (1,000 mg total) by mouth every 8 (eight) hours if needed for mild pain. aspirin, Take 1 tablet by mouth daily. atorvastatin, Take 1 tablet by mouth daily. bisoprolol-hydroCHLOROthiazide, 1 (one) time each day. clopidogrel, Take 1 tablet by mouth every morning. losartan, Take 1 tablet by mouth every morning. meloxicam, Take 1 tablet (15 mg total) by mouth 1 (one) time each day. omeprazole, Take 1 capsule (20 mg total) by mouth 1 (one) time each day. Do not crush or chew. Takefor 4 weeks post-operatively. tiZANidine, 1 (one) time each day. traMADol, Take 1 tablet (50 mg total) by mouth every 4 (four) hours if needed for severe pain. mupirocin, Apply 1 Application topically 2 times a day. Apply to each nostril twice daily for 5 days before surgery. * Preprocedure Instructions - Itzel Goldberg APRN - 06/18/2025 11:00 AM EDT Home Medication Instructions Current Medications Medication Instructions acetaminophen (Tylenol) 500 MG tablet Take as needed aspirin 81 MG EC tablet Take morning of surgery atorvastatin (Lipitor) 20 MG tablet Take morning of surgery bisoprolol-hydroCHLOROthiazide (Ziac) 5-6.25 MG tablet Hold day of surgery clopidogrel (Plavix) 75 MG tablet Hold plavix with last dose 06/20/25, per PRATIK Stafford. losartan (Cozaar) 100 MG tablet Hold day of surgery meloxicam (Mobic) 15 MG tablet Hold 3-5 days before surgery omeprazole (PriLOSEC) [address] capsule Take morning of surgery tiZANidine (Zanaflex) 4 MG tablet Take morning of surgery traMADol (Ultram) 50 MG tablet Take as needed General Preoperative Instructions You will be called the business day before surgery with your arrival time Do not eat anything after midnight except water with your medications unless other instructions aregiven. Can drink clear liquids (water, Gatorade, non- carbonated sports drinks, or apple juice) up until 2 hours before arriving at the hospital. No alcohol or smoking prior to surgery Arrive on time to avoid delays Parking/Registration procedure explained You MUST have a responsible adult available for transport to and from hospital Visitation policy for the day of surgery reviewed Bring insurance card, photo ID, along with power of litigation attorney, guardianship or advanced directives if applicable Do not bring money, jewelry or other valuables Hibiclens bathing instructions reviewed if applicable Notify surgeon of fever, illness, any changes or if you decide not to have surgery Pediatric patients under 12 years of age (If applicable) No solid food or milk after midnight Formula 6 hours prior to arrival for surgery Breast milk 4 hours prior to arrival surgery Clear liquids 2 hours prior to arrival for surgery Diabetes Instructions (If applicable) Take diabetes medication as instructed You may have up to 4 ounces of apple juice 2 hours prior to arrival for surgery for low glucose documented in this encounter Plan of Treatment Upcoming Encounters Date Type Department Care Team (Late st Contact Info) Description 08/23/2025 9:30 AM EST Appointment Cardiac Imaging [address] [place] [address] 08/23/2025 12:00 PM EST Office Visit [place] Clinic Cardiothoracic [address], [address] [place] [id number] Khushbu Gordon MD [address] [place] [address] 09/01/2025 2:30 PM EST Office Visit [facility] [place] [address] [facility], [address] [place] [address] Elsi Mas DO [address] [place] [address] documented as of this encounter Goals Goal Patient Goal Type Associated Problems Recent Progress Patient-Stated? Author Autogenera herman Goal Care Plan Autogenerated Problem No Boston Stinson PA documented as of this encounter Visit Diagnoses Not on filedocumented in this encounter Additional Health Concerns Active Problems Noted Date Diagnosed Date Autogenerated Problem 05/24/2025 Assessment Noted Time PHQ-9 Depression Total Score: 0 03/15/20 10:15 AM EDT A fall risk assessment has been complete d for the patient 05/28/2025 1:07 PM EDT A Body Mass Index follow-up plan has been documented for the patient 05/28/2025 2:48 PM EDT documented as of this encounter Care Teams Paper Cup Handle Machine Operator Relationship Specialty Start Date End Date Stefan Pérez MD [address] [facility] [address] [place] [address] PCP - General 12/08/21 Joanne Bolaños MD [address] [place] [address] Referring Physician Interventional Cardiology 05/25/25 documented as of this encounter
--- OUTSIDE RECORDS SUMMARY | 2025-06-18 10:30 | XMS_ITS | Encounter Summary ---
Author Organization Healthcare Address [address] [place] [address] Care Team Providers Care Hand Salter Name Role Phone Stefan Pérez MD Primary Care Provider [phone] Joanne Bolaños MD Unavailable [phone] Encounter Details Date Type Department Care Team (Latest Contact Info) Description 06/18/2025 11:30 AM EDT - 06/18/2025 11:59 PM EDT [facility] Encounter [place] [facility] [address] [place] [address] Chronic obstructive pulmonary disease with emphysema, unspecified emphysema type Discharge Disposition: Home or Self Care Social History Tobacco Use Types Packs/Day Years Used Date Smoking Tobacco: Former Cigarettes 1 64 S tarted: 1958 Smokeless Tobacco: Never Alcohol Use Standard Drinks/Week [...] (Tylenol) 500 MG tablet Take 2 tablets by mouth every 6 hours as needed for pain. 100 tablet 06/29/2025 amiodarone (Pacerone) 200 MG tablet Take 2 tablets by mouth 2 times a day for 4 days, THEN 1 tablet daily. 46 tablet 06/29/2025 5 apixaban (Eliquis) 5 MG tablet Take 1 tablet by mouth 2 times a day. 60 tablet 06/29/2025 atorvastatin (Lipitor) 80 MG tablet Take 1 tablet by mouth nightly. 30 tablet 3 06/29/2025 6 clopidogrel (Plavix) 75 MG tablet Take 1 tablet by mouth every morning. methocarbamol (Robaxin) 750 MG tablet Take 1 tablet by mouth 4 times a day. 40 tablet 06/29/2025 metoprolol tartrate (Lopressor) 25 MG tablet Take 1 tablet by mouth 2 times a day. 60 tablet 3 06/29/2025 6 naloxone (Narcan) 4 mg/0.1 mL nasal spray 1. Give 1 spray in nostril for no/slow breathing or cannot wake after opioid use 2. Call 911 3. Repeat in other nostril if symptoms continue 1 each 06/29/2025 omeprazole (PriLOSEC) [address] capsule Take 1 capsule (20 mg total) by mouth 1 (one) time each day. Do not crush or chew. Take for 4 weeks post-operatively . 30 capsule 12/09/2021 docusate sodium 100 MG capsule Take 100 mg by mouth 2 times a day for 10 days. Hold for loose stools 20 capsule 06/29/2025 5 oxyCODONE (Roxicodone) 5 MG immediate release tablet Take 1 tablet by mouth every 4 hours as needed for moderate pain for up to 3 days. 18 tablet 06/29/2025 5 acetaminophen (Tylenol) 500 MG tablet Take 2 tablets (1,000 mg total) by mouth every 8 (eight) hours if needed for mild pain. 100 tablet 1 12/09/2021 aspirin 81 MG EC tablet Take 2 tablets by mouth daily. atorvastatin (Lipitor) 20 MG tablet Take 1 tablet by mouth daily. 01/28/2025 5 bisoprolol-hydroCH LOROthiazide (Ziac) 5-6.25 MG tablet Take 1 tablet by mouth daily. 12/19/2021 5 furosemide (Lasix) 40 MG tablet Take 1 tablet by mouth daily. x 5 days 5 tablet 06/30/2025 5 losartan (Cozaar) 100 MG tablet Take 1 tablet by mouth every morning. 01/26/2025 5 meloxicam (Mobic) 15 MG tablet Take 1 tablet (15 mg total) by mouth 1 (one) time each day. 30 tablet 12/09/2021 5 mupirocin (Bactroban) 2 % ointmentIndication s:Methicillin-Resi stant S. Aureus Nasal Colonization Apply 1 Application topically 2 times a day. Apply to each nostril twice daily for 5 days before surgery. 15 g 05/24/2025 5 tiZANidine (Zanaflex) 4 MG tablet Take 1 tablet by mouth daily as needed for muscle spasms. 12/11/2021 5 traMADol (Ultram) 50 MG tablet Take 1 tablet (50 mg total) by mouth every 4 (four) hours if needed for severe pain. 60 tablet 12/09/2021 5 documented as of this encounter Plan of Treatment Upcoming Encounters Date Type Department Care Team (Late st Contact Info) Description 08/23/2025 9:30 AM EST Appointment Cardiac Imaging [address] [place] [address] 08/23/2025 12:00 PM EST [facility] Visit [place] [facility] [address], [address] [place] [address] Khushbu Gordon MD [address] [facility] [address] [place] [address] 09/01/2025 2:30 PM EST Office Visit [facility] [place] [address] [facility], [address] [place] [address] Elsi Mas, DO [address] [place] [address] documented as of this encounter Goals Goal Patient Goal Type Associated Problems Recent Progress Patient-Stated? Author Autogenera herman Goal Care Plan Autogenerated Problem No Boston Stinson PA documented as of this encounter Procedures Procedure Name Priority Date/Time Associated Diagnosis Comments XR CHEST 2 VIEWS Routine 06/18/2025 12:2 4 PM EDT Chronic obstructive pulmonary disease with emphysema, unspecified emphysema type documented in this encounter Results * XR Chest 2 Views (06/18/2025 12:24 PM EDT) Anatomical Region Laterality Modality Chest Digital Radiogra phy Impressions 06/18/2025 1:55 PM EDT Findings likely reflecting infectious or inflammatory airways disease which could be related to smoking. CRITICAL RESULT: No. COMMUNICATION: Per this written report. By electronically signing this report, I, the attending physician, attest that I have personally reviewed the images/data for the above examination(s) and agree with the final edited report. Drafted by Boston Ndiaye III, MD on 06/18/2025 1:22 PM Final report signed by Lewis Murphy MD on 06/18/2025 1:55 PM Narrative 06/18/2025 1:55 PM EDT CLINICAL INDICATION: Pulmonary emphysema, unspecified emphysema type [J43.9] TECHNIQUE: XR CHEST 2 VIEWS COMPARISON: CTA chest dated 04/09/25 FINDINGS: There are bilateral perihilar interstitial opacities likely reflecting the bronchial wall thickening noted on comparison CTA. No acute airspace disease. No significant pleural effusion. No pneumothorax. The mediastinal and cardiac contours are unremarkable. No acute osseous abnormalities. Degenerative changes of the spine. Procedure Note Lewis Murphy MD - 06/18/2025 CLINICAL INDICATION: Pulmonary emphysema, unspecified emphysema type [J43.9] TECHNIQUE: XR CHEST 2 VIEWS COMPARISON: CTA chest dated 04/09/25 FINDINGS: There are bilateral perihilar interstitial opacities likely reflecting thebronchial wall thickening noted on comparison CTA. No acute airspacedisease. No significant pleural effusion. No pneumothorax. The mediastinaland cardiac contours are unremarkable. No acute osseous abnormalities. Degenerative changes of the spine. IMPRESSION: Findings likely reflecting infectious or inflammatory airways diseasewhich could be related to smoking. CRITICAL RESULT: No. COMMUNICATION: Per this written report. By electronically signing this report, I, the attending physician, attestthat I have personally reviewed the images/data for the aboveexamination(s) and agree with the final edited report. Drafted by Boston Ndiaye III, MD on 06/18/2025 1:22 PM Final report signed by Lewis Murphy MD on 06/18/2025 1:55 PM Khushbu Gordon MD IMG XR PROCEDURES Final Result documented in this encounter Visit Diagnoses Diagnosis Chronic obstructive pulmonary disease with emphysema, unspecified emphysema type documented in this encounter Additional Health Concerns Active [...] documented as of this encounter Care Teams Hand Salter Relationship Specialty Start Date End Date Stefan Pérez MD [address] [place] [address] [address] [place] [address] PCP - General 12/08/21 Joanne Bolaños MD [address] [place] [phone] Referring Physician Interventional Cardiology 05/25/25 documented as of this encounter
--- OUTSIDE RECORDS SUMMARY | 2025-06-25 04:36 | XMS_ITS | Encounter Summary ---
Author Organization Healthcare Address [address] [id number] Care Team Providers Care Cardiovascular Surgical Tech Name Role Phone Stefan Pérez MD Primary Care Provider [phone] Joanne Bolaños MD Unavailable [phone] Reason for Referral * Consultation (Routine) - Authorized Specialty Diagnoses / Procedures Referred By Contac t Referred To Contact Cardiac Rehabilitation Diagnoses S/P MVR (mitral valve repair) Khushbu Gordon MD [address] [address] Phone: tel: fax: Referral ID Status Reason Start Date Expiration Date V isits Requested Visits Authorized [id number] Authorized 06/30/2025 12/30/2026 1 1 * Consultation (Routine) - Authorized Specialty Diagnoses / Procedures Referred By Contac t Referred To Contact Cardiac Rehabilitation Diagnoses Mitral valve disease Khushbu Gordon MD [address] [address] Phone: tel: fax: [facility] [address], [address] [place] [address] Phone: tel: fax: Referral ID Status Reason Start Date Expiration Date V isits Requested Visits Authorized [id number] Authorized 06/25/2025 12/25/2026 1 1 Reason for Visit * Auth/Cert (Routine) Specialty Diagnoses / Procedures Referred By Contac t Referred To Contact Diagnoses Mitral valve insufficiency, unspecified etiology Mitral valve insufficiency, unspecified etiology [I34.0] Procedures VT REPLACEMENT OF MITRAL VALVE REPAIR OR REPLACEMENT, MITRAL VALVE VIA THORACOTOMY Khushbu Gordon MD [address] [place] [phone] Phone: tel: fax: [facility] [address] [place] [address] Phone: tel: Referral ID Status Reason Start Date Expiration Date Visits Re quested Visits Authorized [id number] 1 Encounter Details Date Type Department Care Team (Latest Contact Info) Description 06/25/2025 5:36 AM EDT - 06/29/2025 11:30 AM EST Hospital Encounter [facility] [address] [place] [id number] Khushbu Gordon MD [address] [facility] [address] [place] [phone] Mitral valve disease (Primary Dx); Mitral valve insufficiency, unspecified etiology; S/P MVR (mitral valve repair) Discharge Disposition: Home or Self Care Social [...] Recorded Patient Health Questionnaire-9 Score 0 03/15/2025 Humiliation, Afraid, Rape, and Kick questionnair e Answer Date Recorded Within the last year, have y ou been afraid of your partner or ex-partner? No 06/28/2025 Within the last year, have y ou been humiliated or emotionally abused in other ways by your partner or ex-partner? No Within the last year, have y ou been kicked, hit, slapped, or otherwise physically hurt by your partner or ex-partner? No 06/28/2025 Within the last year, have y ou been raped or forced to have any kind of sexual activity by your partner or ex-partner? No 06/28/2025 AUDIT-C Answer Date Recorded Frequency of Alcohol Consumption Not on file 05/28/2025 Q2: How many drinks containi ng alcohol do you have on a typical day when you are drinking? Patient does not drink Frequency of Binge Drinking Not on file 10/2024 Hunger Vital Sign Answer Date Recorded Within the past 12 months, y ou worried that your food would run out before you got the money to buy more. Never true 06/28/20 25 Within the past 12 months, t he food you bought just didn't last and you didn't have money to get more. Never true 06/28/2025 PRAPARE - Transportation Answer Date Re corded In the past 12 months, has l ack of transportation kept you from medical appointments or from getting medications? No 10/2024 In the past 12 months, has l ack of transportation kept you from meetings, work, or from getting things needed for daily living? No 06/28/2025 Housing Stability Vital Sign Answer Philip e Recorded In the last 12 months, was t here a time when you were not able to pay the mortgage or rent on time? No 06/28/2025 In the past 12 months, how m any times have you moved where you were living? 0 06/28/2025 At any time in the past 12 m [facility], were you homeless or living in a fci (including now)? No 06/28/2025 [facility] Utilities Answer Date Recorded In the past 12 months has th e electric, gas, oil, or water company threatened to shut off services in your home? No 06/28/2025 Sex and Gender Information Value Date Recorded Sex Assigned at Not on file Legal Sex Male 5:55 PM EDT Gender Identity Not on file Sexual Orientation Not on file documented as of this encounter Last Filed Vital Signs Vital Sign Reading Time Taken Comments Blood Pressure 139/62 06/29/2025 10:00 AM EST Pulse 72 06/29/2025 10:00 AM EST Temperature 36.6 C (97.8 F) 06/29/2025 8:00 AM EST Respiratory Rate 20 06/29/2025 10:00 AM EST Oxygen Saturation 100% 06/29/2025 10:00 AM EST Inhaled Oxygen Concentration - - Weight 91.3 kg (201 lb 4.5 oz) 06/29/2025 6:00 A M EST Height 175.3 cm (5' 9.02 ) 06/26/2025 11:00 AM E DT Body Mass Index 29.71 06/26/2025 11:00 AM EDT documented in this encounter Functional Status * Calculated C-SSRS Risk Score (Lifetime/Recent) Answer Date of Assessment Author No Risk Indicated 06/29/2025 8:00 AM Sophie Mendiola RN * Question Answer Date of Assessment Author 1. Wish to be (Past 1 Month) No 025 8:00 AM Sophie Mendiola RN 2. Non-Specific Active Suici rossana Thoughts (Past 1 Month) No 06/29/2025 8:00 AM Sophie Mendiola RN 6. Suicidal Behavior (Lifetime) No 8:00 AM Sophie Mendiola RN documented as of this encounter Medications at Time of Discharge acetaminophen (Tylenol) 500 MG tablet Take 2 tablets by mouth every 6 hours as needed for pain. 100 tablet 06/29/2025 amiodarone (Pacerone) 200 MG tablet Take 2 tablets by mouth 2 times a day for 4 days, THEN 1 tablet daily. 46 tablet 06/29/2025 apixaban (Eliquis) 5 MG tablet Take 1 tablet by mouth 2 times a day. 60 tablet 06/29/2025 atorvastatin (Lipitor) 80 MG tablet Take 1 tablet by mouth nightly. 30 tablet 3 06/29/2025 clopidogrel (Plavix) 75 MG tablet Take 1 [...] crush or chew. Take for 4 weeks post-operativel y. 30 capsule 12/09/2021 docusate sodium 100 MG capsule Take 100 mg by mouth 2 times a day for 10 days. Hold for loose stools 20 capsule 06/29/2025 5 oxyCODONE (Roxicodone) 5 MG immediate release tablet Take 1 tablet by mouth every 4 hours as needed for moderate pain for up to 3 days. 18 tablet 06/29/2025 5 furosemide (Lasix) 40 MG tablet Take 1 tablet by mouth daily. x 5 days 5 tablet 06/30/2025 5 documented as of this encounter Miscellaneous Notes * Nursing Note - Sophie Amin RN - 06/29/2025 11:30 AM EST Reviewed AVS with patient, patient left floor with patient transport hemodynamically stable and with belongings (clothes, phone, wallet, phone flooring sales manager). No questions or concerns at this time. * Progress Notes - Maxine Madden - 06/29/2025 11:30 AM EST Inpatient Cardiac Rehab Assessment Patient Name: Jake Pacheco Subjective: Mr. Pacheco qualifies for outpatient cardiac rehab due to MVRepair. I/R/P: Jake Pacheco qualifies for outpatient cardiac rehab. Referral has been entered and will be sent tohis preferred location, [facility]. [place] will contact Mr. Pacheco to discuss and schedule. Cardiac Rehabilitation Program Referral 1. Participation in a Phase II cardiac rehabilitation program is recommended. Patient was informed about what cardiac rehabilitation has to offer and why it is beneficial. The plan of care for the rehabilitation program consists of risk factor modification, monitored and supervised exercise and assistance in the recovery process with ongoing education and support. Patient is patient interested incardiac rehab?: may be interested in attending a cardiac rehabilitation program. 2. Eligibility: Heart valve surgery 3. Exceptions/exclusions: [facility] Cardiac Rehab Exclusions: None 4. Referral: [facility] Cardiac Rehab Referral: Patient will consider participating in a cardiac rehabilitation program. Patient was provided with contact information for the following program(s) for consideration: [facility] [place] - [phone]. 5. Information sent: Information Sent: Appropriate information will be sent to the receiving cardiac rehabilitation program.: * Care Plan - Sophie Amin RN - 06/29/2025 11:06 AM EST Problem: Adult Inpatient Plan of Care Goal: Plan of Care Review Outcome: Ongoing, Progressing Goal: Patient-Specific Goal (Individualized) Outcome: Ongoing, Progressing Flowsheets (Taken 06/29/2025 0800) Patient/Family-Specific Goals (Include Timeframe): Pt will remain fall free during shift Goal: Absence of Hospital-Acquired Illness or Injury Outcome: Ongoing, Progressing Goal: Optimal Comfort and Wellbeing Outcome: Ongoing, Progressing Problem: Fall Injury Risk Goal: Absence of Fall and Fall-Related Injury Outcome: Ongoing, Progressing Problem: Infection Goal: Absence of Infection Signs and Symptoms Outcome: Ongoing, Progressing Problem: Oral Intake Inadequate Goal: Improved Oral Intake Outcome: Ongoing, Progressing * Progress Notes - Sulma Madden RN - 06/29/2025 10:34 AM EST Case Management Discharge Note Jake Pacheco 75 y.o. male CSN: [id number] Admission: 06/25/2025 5:36 AM Primary Problem: Mitral valve insufficiency Primary Agricultural Research Director: Primary Caregiver: Self Assistance Available at Discharge: Current Outpatient/Agency/Support Group: DME Availability of Care Givers (#Hours): No assistance needed Family/Agricultural Research Director(s) Willingness Assessed to care for patient at home: Yes Family/Agricultural Research Director(s) Readiness Assessed to care for patient at home: Yes Housing Circumstances-Z Codes: Housing Circumstances (select all that apply): None Applicable Patient Referred to Financial or Community Resources: n/a Discharge Facility/Level of Care Needs: Discharge Facility/Level of Care Needs: 1-Home or Self Care Patient's Choice of Community Agency(s): Patient's Choice of Community Agency(s): n/a Patient/Family Anticipated Services at Transition: Patient/Family Anticipated Services at Transition: none DME/Equipment Needed after Discharge: Equipment Currently Used at Home: other (see comments), walker, rollator, crutches, walker, rolling, shower chair, commode chair, wheelchair, manual, walker, standard (belongs to s/o) Equipment Needed After Discharge: none Readmission Within the Last 30 Days: Readmission Within the Last 30 Days: no previous admission in last 30 days Medicare Documentation:n/a Follow-up: [facility] [address], [address] [facility] [address] Discharge Transportation: Transportation Anticipated: family or friend will provide Transportation Home at Discharge: Family/Friend will Provide Follow Up Transport: Transportation Needed to Follow up Appoinments: Family/Friend will Provide Additional Comments: Per primary care team patient is stable and may discharge today. Patient declined rollator. CM reviewed chart and no needs noted. Nurse/patient did not reach out to CM for any discharge needs. Sulma Madden RN * Discharge Summary - Sulma Martel, DRY CELL ASSEMBLY SUPERVISOR - 06/29/2025 9:49 AM EST Hospitalization Admit Date/Time: 06/25/2025 5:36 AM Admitting Attending: Khushbu Gordon Discharge Date: 06/29/2025 Discharge Attending Physician: Khushbu Gordon MD PCP name and Address: Stefan Pérez MD [address] [place] [address] [address] / [address] [address] Referring provider name and address: No referring provider defined for this encounter. 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 He underwent a right mini thoracotomy for mitral valve repair with a 30mm physioflex band on 06/25/2025, following a preoperative cardiac workup including coronary angiography that revealed nonobstructive coronary artery disease. The principal diagnosis was mitral valve insufficiency, confirmed by clinical evaluation and intraoperative transesophageal echocardiography, which demonstrated improved mitral regurgitation and normal biventricular function post-repair. The procedure was performed under general anesthesia, with int raoperative management including nitroglycerin and clevidipine for hypertension, and the patient was transferred postoperatively to the CVICU, intubated and sedated. Postoperative imaging included serial chest radiographs, which identified a trace right apical pneumothorax and interval removal of the Cameron- Liliane catheter and endotracheal tube, with no significant interval changes otherwise. Postoperatively, he developed new-onset paroxysmal atrial fibrillation noted at chest closure, refractory to cardioversion, and was managed with an amiodarone bolus and infusion, later transitioned to oral therapy. Rate control was achieved, and anticoagulation was initiated with apixaban, with plans to discontinue aspirin and resume clopidogrel for secondary prevention of TIA. He received 40mg IV furosemide for volume management and was extubated to nasal cannula, then transitioned to room airby post-op day 2. His postoperative course was notable for mechanical ventilation (resolved by post-op day 2), chest tube and pacing wire placement (removed without complication), and transfer from CVICU to telemetry.He experienced significant incisional pain, managed with multimodal analgesia including PRN lidocaine patch. Rehabilitation assessments documented impaired activity tolerance, decreased strength, andlimited functional mobility, with improvement noted over the admission; discharge planning includedrecommendations for home with assistance and use of a rollator. Surgeries and Procedures Operation: Minimally invasive right thoracotomy, Mitral Valve Repair with radical reconstruction with 30mm Physioflex annuloplasty band on 06/25/2025 Surgeon: Khushbu Gordon - Primary Samaria Taylor - Assisting Medication List .. acetaminophen 500 MG tablet Commonly known as: Tylenol Take 2 tablets by mouth every 6 hours as needed for pain. amiodarone 200 MG tablet Commonly known as: Pacerone Take 2 tablets by mouth 2 times a day for 4 days, THEN 1 tablet daily. Start taking on: June 29, 2025 apixaban 5 MG tablet Commonly known as: Eliquis Take 1 tablet by mouth 2 times a day. atorvastatin 80 MG tablet Commonly known as: Lipitor Take 1 tablet by mouth nightly. clopidogrel 75 MG tablet Commonly known as: Plavix Take 1 tablet by mouth every morning. DSS 100 MG capsule Take 100 mg by mouth 2 times a day for 10 days. Hold for loose stools furosemide 40 MG tablet Commonly known as: Lasix Take 1 tablet by mouth daily. x 5 days Start taking on: June 30, 2025 methocarbamol 750 MG tablet Commonly known as: Robaxin Take 1 tablet by mouth 4 times a day. metoprolol tartrate 25 MG tablet Commonly known as: Lopressor Take 1 tablet by mouth 2 times a day. naloxone 4 mg/0.1 mL nasal spray Commonly known as: Narcan 1. Give 1 spray in nostril for no/slow breathing or cannot wake after opioid use 2. Call 911 3. Repeat in other nostril if symptoms continue omeprazole [address] capsule Commonly known as: PriLOSEC Take 1 capsule (20 mg total) by mouth 1 (one) time each day. Do not crush or chew. Take for 4 weekspost-operatively. oxyCODONE 5 MG immediate release tablet Commonly known as: Roxicodone Take 1 tablet by mouth every 4 hours as needed for moderate pain for up to 3 days. Where to Get Your Medications These medications were sent to [facility] [place], [place] - [address], [facility] [id number] acetaminophen 500 MG tablet amiodarone 200 MG tablet apixaban 5 MG tablet atorvastatin 80 MG tablet DSS 100 MG capsule furosemide 40 MG tablet methocarbamol 750 MG tablet metoprolol tartrate 25 MG tablet naloxone 4 mg/0.1 mL nasal spray oxyCODONE 5 MG immediate release tablet Discharge Diagnosis Mitral valve insufficiency Nonrheumatic mitral valve regurgitation S/p Minimally invasive right thoracotomy, Mitral Valve Repair with radical reconstruction with 30mmPhysioflex annuloplasty band Discontinue ASA at discharge and resume Plavix (Home med: on Plavix prior to surgery for TIA. Continue metoprolol 25mg BID Routine post cardiac surgery care: sternal precautions x 6 weeks, PT, bowel regimen to prevent constipation and aggressive pulmonary toilet. Postop Volume OVerload Minimal BLE edema. Weight at admission 89.3kg. Weight at discharge 91.3kg Lasix 40mg PO x 5 days HTN (hypertension) Home meds: losartan & bisoprolol-hydrochlorothiazide. These were held during admission and willnot be resumed at discharge at this time. Controlled, BP 121/63 this AM. COPD (chronic obstructive pulmonary disease) Quit smoking cigarettes. 30 pack year history. Does not require supplemental O2 at home Has not required supplemental O2 postop for over 24 hours at discharge Multiple Basal Lung Nodules Mediastinal Adenopathy Incidental finding on CTA during surgical workup for mitral valve disease Follow up with Dr. Enrique 07/02 CT Chest w/o IV contrast 07/02 Gastroesophageal reflux disease Continue home PPI at discharge TIA (transient ischemic attack) May 2024 No residual deficits No hemodynamically significant carotid stenosis 03/2025 Plavix for secondary prevention, resume at discharge Continue atorvastatin 80mg (was on 20mg prior to admission). BMI 28.0-28.9,adult - Complicates all aspects of care Postoperative Pain Present on Admission: Unknown MMPC: acetaminophen, methocarbamol, oxycodone Will discharge home with Oxycodone 5mg q4h PRN #18 Atrial fibrillation Continue metoprolol. Amiodarone PO load starting 06/26/25 Converted to SR yesterday Apixaban 5mg PO BID. Has free trial card for 30 days. He does not have prescription coverage so cost may be an issue if he needs beyond 30 days. Post Discharge Instructions Activity instructions Take a shower every day. Use a clean washcloth on your incisions every day. Wash your incisions before you wash anywhere else on your body. Do NOT use Neosporin, Peroxide, Betadine, or other ointments on your incisions. Do NOT lift, push, or felt puller 5 pounds for six weeks. Do NOT drive until your physician gives you approval. Move around as you are able. No activity that tires you out. You can ride in the front seat of the car. You can raise both arms at the same time. Outpatient Follow-Up Future Appointments Date Time Provider Department Center 07/02/2025 12:[address] [facility] 07/02/2025 2:40 PM Carlos A Enrique MD [facility] 07/19/2025 11:20 AM Khushbu Gordon MD [facility] 09/01/2025 2:30 PM Elsi Mas, CARGSMOJennifer [facility] Test Results Pending At Discharge None Pertinent Physical Exam At Time of Discharge GENERAL: 75M resting in bed in NAD. NECK: Trachea midline RESP/CHEST: Symmetric expansion; non labored. CTA bilaterally, slightly decreased in bases R>L CARD: RRR. no JVD. Trace BLE edema. Pedal pulses palpable +2. EXTREMITIES: No cyanosis or clubbing. GI: Soft, Nontender, nondistended. BS present and normoactive x 4 quadrants INCISION: Right thoracotomy incision and 2 previous chest tube sites Clean, dry, intact. NEURO: AAOx4. Motor intact and no focal deficits PSYCH: Mood and affect congruent and appropriate to situation. Discharge Disposition/Condition Disposition: Home Condition: Stable (s/sx potential problems absent or manageable) I spent >30 minutes of patient care and instruction time in preparation for this discharge. Cosigned by Khushbu Gordon MD at 07/05/2025 10:18 AM EST * Marla Quiroz, PharmD - 06/29/2025 8:27 AM EST Images from the original note were not included. Apixaban - Video Understand that Apixaban is an oral medication taken to break up blood clots caused by deep vein thrombosis or atrial fibrillation, and to keep the blood thin. Learn how to use and store Apixaban andthe possible side effects to be aware of. To view the video go to this web address: [email or web address] Or, scan this QR code with your smart phone ?? [facility] * J[facility] - Marla Wooten PharmD - 06/29/2025 8:27 AM EST Images from the original note were not included. [id number] Apixaban IMPORTANT WARNING: If you have atrial fibrillation (a condition in which the heart beats irregularly, increasing the chance of clots forming in the body, and possibly causing strokes) and are taking apixaban to help prevent strokes or serious blood clots, you are at a higher risk of having a stroke after you stop taking this medication. Do not stop taking apixaban without talking to your doctor. Continue to take apixaban even if you feel well. Be sure to refill your prescription before you run out of medication so that you will not miss any doses of apixaban. If you need to stop taking apixaban, your doctor mayprescribe another anticoagulant ('blood thinner') to help prevent a blood clot from forming and causing you to have a stroke. If you have epidural or spinal anesthesia or a spinal puncture while taking a 'blood thinner' such as apixaban, you are at risk of having a blood clot form in or around your spine that could cause you to become paralyzed. Tell your doctor if you have an epidural catheter that is left in your body or have or have ever had repeated epidural or spinal punctures, spinal deformity, or spinal surgery. Tell your doctor and pharmacist if you are taking any of the following: anagrelide (Agrylin??); aspirin and other nonsteroidal anti-inflammatory drugs (NSAIDs) such as ibuprofen (Advil??, Motrin??, others), indomethacin (Indocin??, Tivorbex??), ketoprofen, and naproxen (Aleve??, Anaprox??, others); cilostazol (Pletal??); clopidogrel (Plavix??); dipyridamole (Persantine??); eptifibatide (Integrilin??); heparin; prasugrel (Effient??); ticagrelor (Brilinta??); ticlopidine; tirofiban (Aggrastat??), and warfarin (Coumadin??, Jantoven??). If you experience any of the following symptoms, call your doctor immediately: muscle weakness (especially in your legs and feet), numbness or tingling (especially in your legs), or loss of control of your bowels or bladder. Your doctor or pharmacist will give you the air conditioning unit assembler's patient information sheet (Medication Guide) when you begin treatment with apixaban and each time you refill your prescription. Read the information carefully and ask your doctor or pharmacist if you have any questions. You can also visit the Food and Drug Administration (FDA) website (https://www.fda.gov/Drugs/DrugSafety/aob932106.htm) or the air conditioning unit assembler's website to obtain the Medication Guide. Talk to your doctor about the risks of taking apixaban. WHY is this medicine prescribed? Apixaban is used to help prevent strokes or blood clots in people who have atrial fibrillation (a condition in which the heart beats irregularly, increasing the chance of clots forming in the body and possibly causing strokes) that is not caused by heart valve disease. Apixaban is also used to prevent deep vein thrombosis (DVT; a blood clot, usually in the leg) and pulmonary embolism (PE; a bloodclot in the lung) in people who are having hip replacement or knee replacement surgery. Apixaban isalso used to treat DVT and PE and may be continued to prevent DVT and PE from happening again afterthe initial treatment is completed. Apixaban is in a class of medications called factor Xa inhibitor s. It works by blocking the action of a certain natural substance that helps blood clots to form. HOW should this medicine be used? Apixaban comes as a tablet to take by mouth. It is usually taken with or without food twice a day. When apixaban is taken to prevent DVT and PE after hip or knee replacement surgery, the first dose should be taken at least 12 to 24 hours after surgery. Apixaban is usually taken for 35 days after a hip replacement surgery and for 12 days after knee replacement surgery. Take apixaban at around the same times every day. Follow the directions on your prescription label carefully, and ask your doctor or pharmacist to explain any part you do not understand. Take apixaban exactly as directed. Do nottake more or less of it or take it more often than prescribed by your doctor. If you are unable to swallow the tablets, you can crush them and mix with water, apple juice, or applesauce. Swallow the mixture right after you prepare it. Apixaban can also be given in certain types of feeding tubes. Ask your doctor if you should take this medication in your feeding tube. Follow your doctor's directions carefully. Continue to take apixaban even if you feel well. Do not stop taking apixaban without talking to your doctor. If you stop taking apixaban, your risk of a blood clot may increase. Are there OTHER USES for this medicine? This medication may be prescribed for other uses; ask your doctor or pharmacist for more information. What SPECIAL PRECAUTIONS should I follow? Before taking apixaban, ? tell your doctor and pharmacist if you are allergic to apixaban, any other medications, or any ofthe ingredients in apixaban tablets. Ask your pharmacist or check the Medication Guide for a list of the ingredients. ? Tell your doctor and pharmacist what prescription and nonprescription medications, vitamins, nutritional supplements, and herbal products you are taking or plan to take while taking apixaban. Your doctor may need to change the doses of your medications or monitor you carefully for side effects. ? The following nonprescription or herbal products may interact with apixaban: Drexel's wort; aspirin; NSAIDs (such as ibuprofen [Advil??, Motrin??] and naproxen [Aleve??, Naprosyn??]). Be sure to let your doctor and pharmacist know that you are taking these medications before you start taking apixaban. Do not start any of these medications while taking apixaban without discussing with your healthcare provider. ? you should know that apixaban may interact with certain medications that may be used to treat youif you have a stroke or other medical emergency. In case of an emergency, you or a family member should tell the doctor or emergency room staff who treat you that you are taking apixaban. ? tell your doctor if you have an artificial heart valve or if you have heavy bleeding anywhere in your body that cannot be stopped. Your doctor will probably tell you not to take apixaban. ? tell your doctor if you have or have ever had any type of bleeding problem, antiphospholipid syndrome (APS; a condition that causes blood clots), or kidney or liver disease. ? tell your doctor if you are , plan to become , or are . If you become while taking apixaban, call your doctor. ? if you are having surgery, including dental surgery, tell the doctor or dentist that you are taking apixaban. Your doctor may tell you to stop taking apixaban before the surgery or procedure. If you need to stop taking apixaban because you are having surgery, your doctor may prescribe a differentmedication to prevent blood clots during this time. Your doctor will tell you when you should starttaking apixaban again after your surgery. Follow these directions carefully. ? Call your doctor right away if you fall or injure yourself, especially if you hit your head. Yourdoctor may need to check you. What SPECIAL DIETARY instructions should I follow? Unless your doctor tells you otherwise, continue your normal diet. What should I do IF I FORGET to take a dose? Take the missed dose as soon as you remember it. However, if it is almost time for the next dose, skip the missed dose and continue your regular dosing schedule. Do not take a double dose to make up for a missed one. What SIDE EFFECTS can this medicine cause? Some side effects can be serious. If you experience any of these symptoms, call your doctor immediately or get emergency medical treatment: ? bleeding gums ? nosebleeds ? heavy vaginal bleeding ? red, pink, or brown urine ? red or black, tarry stools ? coughing up or vomiting blood or material that looks like coffee grounds ? swelling or joint pain ? headache ? rash ? chest pain or tightness ? swelling of the face or tongue ? trouble breathing ? wheezing ? feeling dizzy or faint Apixaban prevents blood from clotting normally, so it may take longer than usual for you to stop bleeding if you are cut or injured. This medication may also cause you to bruise or bleed more easily.Call your doctor right away if bleeding or bruising is unusual, severe, or cannot be controlled. Apixaban may cause other side effects. Call your doctor if you have any unusual problems while taking this medication. If you experience a serious side effect, you or your doctor may send a report to the Food and Drug Administration's (FDA) MedWatch Adverse Event Reporting program online (https://www.fda.gov/Safety/MedWatch) or by phone ( ). What should I know about STORAGE and DISPOSAL of this medication? Keep this medication in the container it came in, tightly closed, and out of reach of children. Store it at room temperature and away from light, excess heat and moisture (not in the bathroom). Dispose of unneeded medications in a way so that pets, children, and other people cannot take them.Do not flush this medication down the toilet. Use a medicine take-back program. Talk to your pharmacist about take-back programs in your community. Visit the FDA's Safe Disposal of Medicines website h ttps://goo.gl/c4Rm4p for more information. Keep all medication out of sight and reach of children as many containers are not child-resistant. Always lock safety caps. Place the medication in a safe location - one that is up and away and out of their sight and reach. https://www.upandaway.org What should I do in case of OVERDOSE? In case of overdose, call the poison control helpline at . Information is also available online at https://www.poisonhelp.org/help. If the victim has collapsed, had a seizure, has trouble breathing, or can't be awakened, immediately call emergency services at 971. Symptoms of overdose may include the following: ? unusual bleeding or bruising ? red, brown, or pink urine ? red or black, tarry stools ? coughing up or vomiting blood or material that looks like coffee grounds What OTHER INFORMATION should I know? Keep all appointments with your doctor. Do not let anyone else take your medication. Ask your pharmacist any questions you have about refilling your prescription. Keep a written list of all of the prescription and nonprescription (mbqj-tam-nvylpue) medicines, vitamins, minerals, and dietary supplements you are taking. Bring this list with you each time you visit a doctor or if you are admitted to the hospital. You should carry the list with you in case of brunilda rgencies. Brand Name(s): ? Eliquis?? This report on medications is for your information only, and is not considered individual patient advice. Because of the changing nature of drug information, please consult your physician or pharmacist about specific clinical use. The [place] [employer] represents that the information provided hereunder was formulated with a reasonable standard of care, and in conformity with professional standards in the field. The [place] [employer] makes no representations or warranties, express or implied, including, but not limited to, any implied warranty of merchantability and/or fitness for a particular purpose, with respect to such information and specifically disclaims all such warranties. Users are advised that decisions regarding drug therapy are complex medical decisions requiring the independent, informed decision of an appropriate health critical care cns, and the information is provided for informational purposes only. The entire monograph for a drug should be reviewed for a thorough understanding of the drug's actions, uses and side effects. The [place] [employer] does not endorse or recommend the use of any drug.The information is not a substitute for medical care. AHFS?? Patient Medication Information?. ?? Copyright, 2023. [employer] [place] [employer]??, [address] [facility], [address], [place], [place]. All Rights Reserved. Duplication for commercial use must be authorized by [facility]. Selected Revisions: October 10, 2024. AHFS?? Patient Medication Information?. ?? Copyright, 2024 * Care Plan - Sim Farrell RN - 06/29/2025 5:22 AM EST Problem: Adult Inpatient Plan of Care Goal: Plan of Care Review Outcome: Ongoing, Progressing Flowsheets (Taken 06/29/2025515) Progress: improving Plan of Care Reviewed With: patient Goal: Patient-Specific Goal (Individualized) Outcome: Ongoing, Progressing Flowsheets Taken 06/29/2025515 Patient/Family-Specific Goals (Include Timeframe): Pt will remain fall free during shift Individualized Care Needs: safety Taken 06/28/20251999 Anxieties, Fears or Concerns: none expressed Goal: Absence of Hospital-Acquired Illness or Injury Outcome: Ongoing, Progressing Intervention: Identify and Manage Fall Risk Flowsheets (Taken 06/29/2025515) Safety Promotion/Fall Prevention: activity supervised clutter-free environment maintained safety round/check completed nonskid shoes/slippers when out of bed Intervention: Prevent Skin Injury Flowsheets Taken 06/29/2025515 Skin Protection: incontinence pads utilized transparent dressing maintained Taken 06/29/2025 0000 Body Position: weight shifting Intervention: Prevent and Manage VTE (Venous Thromboembolism) Risk Flowsheets (Taken 06/28/20251999) VTE Prevention/Management: SCDs (sequential compression devices) on Intervention: Prevent Infection Flowsheets (Taken 06/29/2025515) Infection Prevention: environmental surveillance performed hand hygiene promoted rest/sleep promoted single patient room provided Goal: Optimal Comfort and Wellbeing Outcome: Ongoing, Progressing Intervention: Monitor Pain and Promote Comfort Flowsheets (Taken 06/28/20252105) Pain Management Interventions: medication (see MAR) Intervention: Provide Person-Centered Care Flowsheets (Taken 06/29/2025515) Trust Relationship/Rapport: care explained choices provided emotional support provided thoughts/feelings acknowledged Problem: Fall Injury Risk Goal: Absence of Fall and Fall-Related Injury Outcome: Ongoing, Progressing Intervention: Identify and Manage Contributors Flowsheets (Taken 06/29/2025515) Medication Review/Management: medications reviewed Self-Care Promotion: independence encouraged Intervention: Promote Injury-Free Environment Flowsheets (Taken 06/29/2025515) Safety Promotion/Fall Prevention: activity supervised clutter-free environment maintained safety round/check completed nonskid shoes/slippers when out of bed Problem: Oral Intake Inadequate Goal: Improved Oral Intake Outcome: Ongoing, Progressing Intervention: Promote and Optimize Oral Intake Flowsheets (Taken 06/29/2025515) Oral Nutrition Promotion: physical activity promoted rest periods promoted Nutrition Interventions: food preferences provided meal set-up provided * Progress Notes - Sulma Martel, DRY CELL ASSEMBLY SUPERVISOR - 06/28/2025 12:00 PM EST CVT Progress Note Chief Complaint:Mitral Valve Insuffiencey 24 Hour Events/HPI: c/o uncontrolled pain this AM. Has oxycodone 10mg almost 2 hours ago without relief. Review of Systems: A complete ROS was obtained. All were negative except as noted in HPI. Objective: All laboratory data, images, tracings, and vital sign data for past 24 hours are personally reviewed unless otherwise noted. @PATIENTWT@ , Weight: 89.3 kg (196 lb 14.4 oz) , Ht Readings from Last 1 Encounters: 06/26/25 1.753 m (5' 9.02 ) , Body mass index is 28.08 kg/m??. VITALS (last 24h) Temp: [36.5 ??C (97.7 ??F)-36.8 ??C (98.3 ??F)] 36.5 ??C (97.7 ??F) Heart Rate: [57-116] 66 Resp: [11-] 14 BP: (85-131)/(51-81) 117/67 Visit Vitals BP 117/67 Pulse 66 Temp 36.5 ??C (97.7 ??F) (Oral) Resp 14 Ht 1.753 m (5' 9.02 ) Wt 86.3 kg (190 lb 4.1 oz) SpO2 98% BMI 28.08 kg/m?? Smoking Status Former BSA 2.05 m?? I & O Summary Intake/Output Summary (Last 24 hours) at 06/28/2025 192 Last data filed at 06/28/2025 1800 Gross per 24 hour Intake 480 ml Output 1100 ml Net -620 ml LABS CBC WBC 11.22 (H) Hb 8.3 (L) Plt 89 (L) Hct 26.0 (L) ANC ?? INR ??, PTT ??, Anti-Xa ?? BMP Na 138 Cl 101 BUN 24 (H) Glu 99 K 4.1 Co2 24 Cr 0.81 Ca 7.9 (L) iCa ?? Mg 2.1, Phos ?? Lactate ?? LFT AST ?? AlkPhos ?? T Prot ?? ALK ?? Bili ?? Alb ?? D.Bili ?? HOURS) MEDICATIONS Current Scheduled Medications[1] Current Continuous Medications[2] Current PRN Medications[3] Physical Exam: GENERAL: WD, WN, NAD. EYES: No scleral icterus or conjunctivitis HENT: Atraumatic, normocephalic, nares patent, mucus membranes moist NECK: Supple, trachea midline RESP/CHEST: Symmetric expansion; non labored. CTA bilaterally. CARD: regular rate and rhythm, normal S1 and S2, no murmur, rub, or gallop, Pedal pulses palpable +2. , no JVD. No edema Extremities: No cyanosis or clubbing. GI: Soft, Nontender, nondistended. BS present and normoactive x 4 quadrants SKIN: No rash. NEURO: AAOx4. Motor intact and no focal deficits PSYCH: Mood and affect congruent and appropriate to situation. Assessment and Plan: 75 yrs male who underwent R mini thoracotomy, MVr with 30mm physioflex band on 06/25/[address] Gordon PLAN: Lasix 40mg PO daily Increase and schedule acetaminophen & methocarbamol DC IV pain medicine Resume Plavix and dc ASA at discharge Start apixiban at discharge CXR & Labs in AM Cardiothoracic Surgery [phone] [1] acetaminophen, 1,000 mg, Oral, q6h LASHONDA amiodarone, 400 mg, Oral, BID Followed by [START ON 07/03/2025] amiodarone, 200 mg, Oral, Daily aspirin, 81 mg, Oral, Daily atorvastatin, 80 mg, Oral, Nightly docusate sodium, 100 mg, Oral, BID furosemide, 40 mg, Oral, Daily heparin (porcine), 5,000 Units, Subcutaneous, q8h LASHONDA methocarbamol, 750 mg, Oral, 4x daily metoprolol tartrate, 25 mg, Oral, BID mupirocin, 1 Application, Each Nostril, BID pantoprazole, 40 mg, Oral, Daily polyethylene glycol, 17 g, Oral, BID senna, 17.2 mg, Oral, BID sodium chloride, 10 mL, Intravenous, q12h [2] [3] PRN medications: bisacodyl, lidocaine, magnesium hydroxide, ondansetron, oxyCODONE OR oxyCODONE, sodium chloride, sodium chloride * Progress Notes - Ana Avila - 06/28/2025 11:36 AM EST Case Management Adult Initial Progress Note Jake Pacheco 75 y.o. male CSN: [id number] Admission: 06/25/2025 5:36 AM Primary Problem: Mitral valve insufficiency PCP: Stefan Pérez MD Emergency Contact: Extended Emergency Contact Information Primary Emergency Contact: Allie Leos Mobile Relation: Significant Other Preferred language: Turkmen Television Specialist needed? No Insurance: Primary Visit Coverage Payer Plan Sponsor Code Group Number Group Name MEDICARE MEDICARE A & B Primary Visit Coverage Subscriber Subscriber ID Subscriber Name Subscriber SSN Subscriber Address [id number] Jake Pacheco [id number] [facility] [place] [address] Patient information: Primary Caregiver: Self Support System: Immediate family Daily Living Activities: Functional Status: Independent Living Arrangements: Spouse/Significant other Type of Residence: Private residence, Multi Level (ramp to enter) [address] [place] [address] Current DME: Equipment Currently Used at Home: other (see comments), walker, rollator, crutches, walker, rolling, shower chair, commode chair, wheelchair, manual, walker, standard (belongs to s/o) Income Information: Income Source: Retired Income/Expense Information: Income meets expenses Current Resources Utilized: None Housing Circumstances-Z Codes: Housing Circumstances (select all that apply): None Applicable Anticipated Discharge Date: TBD Patient's Discharge Goal: Home with s/o Assistance Available at Discharge: S/o Discharge Transport: family Follow Up Transport: family vs self Home Health / Home Infusion / Outpatient Dialysis Services: N/A Living Will/Advance Directive/Power of Tsa Screener /Guardian: N/A Social Drivers of Health Food Insecurity: No Food Insecurity (06/28/2025) Hunger Vital Sign Worried About Running Out of Food in the Last Year: Never true Ran Out of Food in the Last Year: Never true Alcohol Use: Unknown (05/28/2025) AUDIT-C Frequency of Alcohol Consumption: Not on file Average Number of Drinks: Patient does not drink Frequency of Binge Drinking: Not on file Housing Stability: Low Risk (06/28/2025) Housing Stability Vital Sign Unable to Pay for Housing in the Last Year: No Number of Times Moved in the Last Year: 0 Homeless in the Last Year: No Tobacco Use: Medium Risk (06/25/2025) Patient History Smoking Tobacco Use: Former Smokeless Tobacco Use: Never Passive Exposure: Not on file Transportation Needs: No Transportation Needs (06/28/2025) PRAPARE - Transportation Lack of Transportation (Medical): No Lack of Transportation (Non-Medical): No Depression: Not at risk (04/12/2025) PHQ-2 PHQ-2 Score: 0 Utilities: Not At Risk (06/28/2025) [facility] Utilities Threatened with loss of utilities: No Stress: Not on file Intimate Partner Violence: Not At Risk (06/28/2025) Humiliation, Afraid, Rape, and Kick questionnaire Fear of Current or Ex-Partner: No Emotionally Abused: No Physically Abused: No Sexually Abused: No Physical Activity: Not on file Social Connections: Not on file Financial Resource Strain: Not on file - Pt denied above socioeconomic needs and no request was made for resources for those needs. Additional Comments: SW spoke with pt at bedside for initial assessment. Pt does not have a POA/LW/AD. Pt's EC is s/o Allie Leos ([phone]). Pt lives with s/o in a multi-level house with ramp to enter; address in chart confirmed. Pt reports he is independent with ambulation and ADLs at baseline. Home DME consists of shower chair, RW, rollator, bsc, wc, walker, and crutches. Pt is not on HD or home O2/CPAP/BiPAP.If needed, pt reports Allie could provide initial 24/7 assistance upon DC. Pt confirms PCP as Stefan Pérez MD in [place]. Pt drives self to appointments. Pt reports family could provide transport upon DC. Pt has never worked with an CAT SWAMPER and has never stayed anywhere overnight for physical rehab. Pt prefers [facility] in [place] as his pharmacy. Pt confirms Medicare A&B and reports he does not currently have part D. PT/OT recs for rollator; pt declined at this time, stating his s/o had multiple rollators that he could use. No further SW concerns identified at this time. SW will monitor pt's progress and will follow up with DC planning and needs as appropriate. ARLETTE Rousseau * Krames Wendy Adames RN - 06/28/2025 10:47 AM EST Images from the original note were not included. [id number] Thoracotomy: Your Home Recovery For the first several weeks after your surgery, you'll be gaining a little more energy and strengtheach day. Breathing may be uncomfortable at first. You also may be short of breath. Take things slowly. Rest when you get tired. Your doctor or nurse can talk with you about what you can and can't doas you recover. Caring for your incision Your health care provider will tell you when it's OK to shower. When you shower, wash your incisiongently with warm (not hot) water and mild soap. Bruising, itchiness, soreness, and numbness at yourincision site are normal for several weeks after surgery. Drainage, bleeding, warmth, severe redness, and foul- smelling odor are not normal. Call your provider if you have any of these. Taking medicines Take your pain medicines as your health care provider tells you to. Don't wait until the pain gets bad before you take them. In addition to medicine for pain, your provider may prescribe other medicines. Oxygen may also be prescribed. Easing into activity For 6 to 8 weeks after your surgery, don't do any activity that might put stress on your healing incision. This includes heavy lifting or yard work. But do start walking to improve your circulation, lung capacity, and strength. Taking pain medicines before activity will help make breathing more comfortable. You'll probably feel short of breath for several weeks. This is normal. It will get better with time. As you begin to feel better, you can gradually add more strenuous activities. Ask your health care provider how long to wait before returning to sexual activity, driving, and work. When to call your doctor Contact your health care provider right away if you have: ? Redness, bleeding, swelling, drainage, increasing pain, or warmth at the incision site. ? A fever of 100.4??F ( 38??C) or higher, or as directed by your provider. ? Swelling in the legs. Call 911 Call 911 if you have: ? Sudden, severe shortness of breath. ? Rapid heartbeat or fluttering in your chest. ? Sudden, severe sharp chest pain that doesn't go away, or unusual chest pain. ? Fainting or passing out. Last Reviewed Date: 2024 00:00:00 ?? [id number] [employer]. All rights reserved. This information is not intended as a substitute for professional medical care. Always follow your healthcare professional's instructions. * Javier Callahan - Wendy May RN - 06/28/2025 10:47 AM EST Images from the original note were not included. [id number] Thoracotomy Thoracotomy is surgery used to diagnose and treat certain lung problems. The surgeon makes a cut (incision) through the skin, usually between the ribs, or may remove a rib. They then cut through the lining around the lungs. They may take a sample of lung tissue (biopsy). Or the surgeon may take outa tumor or mass, or part or all of a lung. Sometimes surgeons use a thoracotomy to operate on the esophagus or for certain heart procedures. Possible incision site for thoracotomy. Getting ready for your surgery ? Ask your health care team any questions you have about the procedure. ? Have blood tests or other tests that your health care provider suggests. ? Ask your provider about donating your own blood before the procedure. ? If you smoke, use smokeless tobacco, electronic cigarettes, or vaping devices, stop right away. Let your provider know if you drink large amounts of alcohol or use recreational drugs. ? Tell your healthcare team about any medicines you're taking, including aspirin. Ask if you shouldstop taking them. Also mention any vitamins, herbs, or other supplements you take. ? Also tell your care team about any allergies that you have, including medicines, foods, tape, andlatex. ? Follow any directions you are given for not eating or drinking before surgery. The surgery ? The anesthesiologist can discuss the types of medicines you'll be given during the surgery and answer your questions. After you're asleep, you're put in a comfortable position on your side and covered with sterile drapes. ? The lung to be operated on is deflated. A breathing tube helps your other lung continue working. ? Your surgeon makes an incision across your side. They separate your rib cage or remove a rib to reach your lungs. The surgeon can look at the deflated lung and do the needed surgery. In some cases,the surgeon may remove part or all of the lung and nearby lymph nodes. ? When the procedure is finished, the surgeon puts one or more tubes in your chest for a short time. These are to drain fluid and air. ? The surgeon then repairs the rib cage. They close the muscle and skin with stitches or [place]. ? You will wake up in a recovery area. Or you may be in the ICU (intensive care unit). Your breathing tube is generally taken out before or just after you wake up. Risks and possible complications The risks of having a thoracotomy include: ? The risks of general anesthesia. ? Infections. This could be in the wound, in the lungs (pneumonia), or in the bloodstream. ? Too much bleeding. This might require a blood transfusion. ? An air leak through the lung wall. This requires a longer hospital stay or another operation. ? A collapsed lung that doesn't get better. ? Delirium. ? A blood clot in a blood vessel in the leg (deep vein thrombosis) with potential for blood clots in the lung (pulmonary embolism). ? Pain. In some cases, pain may continue beyond the normal recovery period. ? . Last Reviewed Date: 2024 00:00:00 ?? [id number] [employer]. All rights reserved. This information is not intended as a substitute for professional medical care. Always follow your healthcare professional's instructions. * [facility] - Wendy May RN - 06/28/2025 10:46 AM EST Images from the original note were not included. [id number] Recovery From Heart Surgery: The First Few Weeks During the first few weeks after heart surgery, you?ll be regaining your energy and strength. Your health care provider will let you know what you can and can?t do as you get better. Take things slowly. And rest when you get tired. Walking Walking is one of the easiest and best ways to help yourself get better. When you walk, your legs pump blood to your heart. This improves blood flow throughout your body. Choose a safe place with a level surface. A local park or a mall are good choices. Start by walking for 5 minutes. Walk a littlelonger each day. And walk with a friend if you can. Driving Your body needs to heal before you drive. Your reflexes will be slow for a while. And some of your medicines can make you drowsy. Let others drive until your surgeon says you can drive again. Wear your seat belt when you are in a car. Lifting For the first 6 weeks, don?t lift, push, or pull more than 10 pounds ( 4.5 kg). Your health care provider may give you specific limits on how much you can lift. Follow their instructions. Showering You may feel weak the first few times you shower at home. Ask someone to stand nearby in case you need help. Don't use very hot water. It can affect your blood flow and make you dizzy. Working Your health care provider can advise you about the best plan for returning to work. You may be ableto return part-time to a desk job 6 weeks after your surgery. If you have a more active job, check with your surgeon. Sexual activity Sex is generally safe for most people within 2 to 4 weeks after uncomplicated CABG (coronary arterybypass graft) surgery. Talk with your surgeon about when it's safe for you to resume sexual activity. Your feelings It is common to feel a little depressed or frustrated while healing after major surgery. You might feel cheerful and energetic one day. And you may feel cranky and tired the next. You may find it hard to think clearly or to sleep. Or you may not be hungry. These things will get better soon. Try notto withdraw from your family and friends. Keep talking to, listening to, and supporting each other. What to watch for Watch for any signs of infection at your incision site. These include: ? Fever ? Chills ? Redness ? Drainage ? Foul-smelling odor ? Pain that gets worse Call your health care provider if any of these occur. Your provider will show you how to take your pulse. Call your provider right away if you develop a fast, slow, or irregular heartbeat. You may have low blood pressure if you become dizzy but feel better when you sit down. Have someone take your blood pressure or call your provider. If you don't feel better with sitting down, call 911 as noted below. Call 911 Call 911 if any of these occur: ? New or unusual chest pain or a return of the heart symptoms you had before surgery ? New or unusual shortness of breath ? Feeling dizzy or lightheaded, or passing out ? Pulse (heartbeat) is fast (more than 120 beats per minute) or slow (fewer than 50 beats per minute). Or your pulse is irregular, has extra beats, or skips beats. ? Heavy bleeding from the incision site, or bleeding that doesn't stop Last Reviewed Date: 2024 00:00:00 ?? [id number] [employer]. All rights reserved. This information is not intended as a substitute for professional medical care. Always follow your healthcare professional's instructions. * [facility] Wendy May RN - 06/28/2025 10:46 AM EST Images from the original note were not included. [id number] After Heart Valve Surgery For the first 6 to 8 weeks after surgery, you?ll gain a little more energy and strength each day. Your healthcare provider will discuss what you can and can?t do as you recover. Some days will be easier than others. Remember to take things slowly and rest when you get tired. Walking ? Walking pumps blood to your heart. This improves blood flow all over your whole body. ? Start with a short walk (maybe 5 minutes). Walk for a little longer each day. ? Choose a safe place with a level surface. This might be a local park or mall. ? Wear shoes with good support. This will help prevent injury to knees and ankles. ? Walk with someone. It?s more fun and helps you stay with it. Showering ? Don't use very hot water, especially on the cuts (incisions). It can affect your circulation and make you dizzy. ? Ask someone to stand nearby in case you need help. Driving ? Let others drive you around for the first 4 to 6 weeks after your surgery, or as directed by yourhealthcare provider. ? Motion can make pain worse and injure your breastbone. ? Some of your medicines may make you drowsy. Easing into activity ? After a few weeks, you can start doing light work around your home, such as making simple meals and washing dishes. ? Most healthcare providers advise against lifting anything that weighs more than 5 pounds Your provider may give you a different weight limit. Don't do activities that require raising your arms above the height of your shoulders. For instance, don't reach up to get items from higher shelves. ? Don't do mowing or vacuuming. These motions can strain your breastbone. ? Your provider can advise you about the best plan for returning to work. It will depend on the type of work you do, such as a desk job, or a more active job. ? Discuss with your provider when you can resume having sex. This will depend on the type of surgery you had. For instance, if your breastbone was cut, your provider may advise waiting 2 to 4 weeks. Or waiting until you can easily climb 2 flights of stairs or walk a 1/2 mile. Medicines your healthcare provider may prescribe ? Blood-thinner (anticoagulant). This medicine prevents bleeding or blood clots that could lead to a stroke. ? Antibiotic. This helps prevent infection that could scar and destroy your new heart valve. You'llbe told when to take this medicine. That might be before dental work, surgery, or other medical procedures. When to call your healthcare provider Call your healthcare provider right away if you have any of these: ? Fever of 100.4??F (38??C) or higher, or as advised by your provider ? Chills Call 911 Call 911 if any of these occur: ? New or abnormal chest pain or belly (abdominal) pain ? Feeling dizzy or faintness ? New or abnormal shortness of breath ? Cough up red blood or have red blood in your stool ? Irregular, slow, or fast heart rate ? Sudden numbness in arms, legs, or face ? Sudden severe headache Last Reviewed Date: 2023 00:00:00 ?? [id number] [employer]. All rights reserved. This information is not intended as a substitute for professional medical care. Always follow your healthcare professional's instructions. * Discharge Instr - Other Orders - Crockett, Wendy R, RN - 06/28/2025 10:46 AM EST Please arrive 30 minutes early for your appointment with Dr. Gordon Prior to your appointment, go to the radiology department on the 1st floor of the [facility] near [facility] for a chest x-ray. Then go to the lab on the 2nd floor for blood work. Then come to our office on the 3rd floor. Please bring an UPDATED list of medications you are currently taking. * Discharge Instr - Diet - Wendy May RN - 06/28/2025 10:46 AM EST Your food may taste funny, or you may not have much of an appetite. This is normal after surgery and should go away. * Discharge Instr - Activity - Wendy May RN - 06/28/2025 10:46 AM EST Take a shower every day. Use a clean washcloth on your incisions every day. Wash your incisions before you wash anywhere else on your body. Do NOT use Neosporin, Peroxide, Betadine, or other ointments on your incisions. Do NOT lift, push, or felt puller 5 pounds for six weeks. Do NOT drive until your physician gives you approval. Move around as you are able. No activity that tires you out. You can ride in the front seat of the car. You can raise both arms at the same time. * Discharge Instr - AVS First Page - Wendy May RN - 06/28/2025 10:45 AM EST Temperature 101.5 or greater. Incisions coming open or draining pus. Pain not relieved by medications. Increased shortness of breath. Increased swelling. For questions or concerns, please contact??? Wendy May CT Surgery Nurse Navigator at [phone] Saturday through Saturday 7am- 3:30pm [facility] [phone] after 3:30 pm, weekends and holidays - ask for the CT surgeon labor conciliator. * Query Clarification Note - Khushbu Gordon MD - 06/28/2025 10:15 AM EST Please review the findings below and if possible, provide further specificity regarding the type and acuity of CHF. Type: [x]Systolic []Diastolic []Combined Systolic/Diastolic []Other, please specify Acuity: []Acute [x]Chronic []Acute on chronic []Other, please specify This documentation will become part of the patient's medical record. * Query Clarification Note - Khushbu Gordon MD - 06/28/2025 10:15 AM EST Clarify which of the following accurately represents the acuity of the patient's Atrial Fibrillation (A-Fib) status. See findings below. [x]Paroxysmal []Persistent []Permanent / chronic []Other (please specify) []Clinically unable to determine Please indicate POA status This documentation will become part of the patient's medical record. * Query Clarification Note - Khushbu Gordon MD - 06/28/2025 10:15 AM EST Please review and consider documenting a diagnosis associated with the findings below. [x]Acute Blood Loss Anemia []Anemia,please specify type & acuity []Other, please specify (Please indicate POA status) This documentation will become part of the patient's medical record. * Care Plan - Sophie Amin RN - 06/28/2025 9:38 AM EST Problem: Adult Inpatient Plan of Care Goal: Plan of Care Review Outcome: Ongoing, Progressing Flowsheets (Taken 06/27/2025 1015 by Betito Gold RN) Plan of Care Reviewed With: patient family Goal: Patient-Specific Goal (Individualized) Outcome: Ongoing, Progressing Flowsheets (Taken 06/28/2025 0800) Patient/Family-Specific Goals (Include Timeframe): patient will remain free of falls during this shift Goal: Absence of Hospital-Acquired Illness or Injury Outcome: Ongoing, Progressing Goal: Optimal Comfort and Wellbeing Outcome: Ongoing, Progressing Problem: Fall Injury Risk Goal: Absence of Fall and Fall-Related Injury Outcome: Ongoing, Progressing Problem: Infection Goal: Absence of Infection Signs and Symptoms Outcome: Ongoing, Progressing Problem: Oral Intake Inadequate Goal: Improved Oral Intake Outcome: Ongoing, Progressing * Progress Notes - Jyothi Bond - 06/28/2025 9:35 AM EST Occupational Therapy Treatment Patient Name: Jake Pacheco Today's Date: 06/28/2025 Total Treatment Time: 40 minutes OT Discharge Recommendations: Home with assistance Equipment Recommended: Rollator Subjective I am feeling a little better. Participants in Care Family/Caregiver Present: No Presentation Oxygen Therapy: None (Room air) Lines and Tubes: Telemetry Peripheral IV 06/25/25 Left;Posterior Hand (Active) Peripheral IV 06/27/25 Anterior;Proximal;Right Forearm (Active) Pre-Session: Sitting in chair, Lines intact Pre-Session Comments: RN agreeable Post-Session: Supine, Head of bed elevated, Lines intact, RN notified, Call light in reach Post-Session Comments: All needs met. Precautions Medical Precautions: Post-Surgical precautions, Fall precautions Post-Surgical Precautions: R thoracotomy Objective Pain Pt reporting right side incisional pain: 9/10 Pillow support provided at end of session and RN aware (premedicated before walk in hallway) Delirium Screening RASS: Alert and calm Confusion Assessment Method-ICU (CAM-ICU/PCAM-ICU) Feature 3: Altered Level of Consciousness: Negative Cognition Cognition Overall Cognitive Status: Within Functional Limits Arousal/Alertness: Appropriate responses to stimuli Mood/Behavior: Alert Orientation Level: Oriented X4 Single Step Commands: Consistently Multi-Step Commands: Consistently Method of Communication: Verbal Self-Care Interventions Self Care/Home Management (ADLs) Time Entry: 40 Self_Care Interventions: Pt educated on right side thoracotomy precautions prior to mobility and importance of carryover. Pt verbalized understanding but demonstrated fair(+) carryover. Pt. participated in functional endurance tasks in preparation for high level ADL routines. Pt. completed sit to stand from recliner with SBA. Pt challenged to sequential task training by walking into bathroom to complete grooming tasks at sink, prior to mobilizing. Pt. required seated rest break to take medications prior to completing 420ft navigation task at hallway level to simulate ADL's in home environmentwith SBA and rollator. Pt. tolerated task well with no safety concerns noted and one seated/one standing rest break required due to shortness of breath and tachycardia. Cues also provided throughout session to promote upright posture, activity pacing, and pursed lip breathing with improved carryover noted with session progression. OT monitored vital signs closely throughout session to assess for patient???s tolerance to treatment, with HR reaching 169bpm during walk. Pt required mod cues and min A to sequence log roll when returning to supine position, with cues provided to breathe out duringtransfer to decrease incisional pain with rapid position change. Additional time spent educating patient/family on ADLs with right side thoracotomy precautions and potential needs for AE/DME at discharge. Pt educated on role of OT, discharge recommendations, and expectations for mobility while inpatient. Pt verbalized understanding but would benefit from continued education to improve carryover. Grooming Grooming Level of Assistance: Independent Grooming Where Assessed: Standing sinkside Grooming Interventions: Hand hygiene and washing face. Lower Extremity Dressing Pants Level of Assistance: Minimum assistance LE Dressing Interventions: Donning pants, assist required only due to gripper socks. Assessment Pt participated in OT session with a focus on ADL retraining and functional endurance. Pt toleratedsession with fair energy for task. Pt is most limited by endurance and pain but is making good progress towards goals. Pt is not at baseline of independent with all ADLs/IADls and walking community level distances prior to admission. Pt would benefit from continued skilled OT services to address AE/DME training, activity tolerance, and overall muscle power needed for increased independence with ADLs and functional mobility. OT Recommendations Discharge Destination: Home with assistance Discharge Equipment: Rollator Plan Continue OT POC. Goals OT GOAL DETAILS Goal Established Date Time Frame Goal Status OT Goal 1: Patient will be modified independent with total body dressing. 06/26/25 2 weeks OT Goal 2: Patient will stand at sink to complete 2 sequential grooming ADLs with Modified Castro. 06/26/25 2 weeks OT Goal 3: Patient will complete total toileting task at bathroom level with Modified Castro. 06/26/25 2 weeks OT Goal 4: Patient to complete environmental navigation task simulating home and community based self care tasks, acheiving up to 500 feet with modified independence. 06/26/25 2 weeks Written by Jyothi Bond on 06/28/25 at 12:22 PM. * Progress Notes - Beth Ash PTA - 06/28/2025 9:34 AM EST Physical Therapy Treatment Patient Name: Jake Pacheco Today's Date: 06/28/2025 Total Treatment Time: 39 min PT Discharge Recommendations: Home with assistance Equipment Recommended: Rollator Subjective The patient states, I am doing alright this morning. Participants in Care Family/Caregiver Present: No Television Specialist: Not Applicable Presentation Oxygen: None (Room air) Telemetry: Yes Lines and Tube: Peripheral IV 06/25/25 Left;Posterior Hand (Active) Peripheral IV 06/27/25 Anterior;Proximal;Right Forearm (Active) Pre-Session: Sitting in chair, Lines intact RN agreeable to session. Post-Session: Supine, Head of bed elevated, Call light in reach, Lines intact, RN notified Patient positioned for comfort and pressure relief. Precautions Medical Precautions: Post-Surgical precautions, Fall precautions Post-Surgical Precautions: R thoracotomy Objective Pain Patient complained of 9/10 pain at incision site; RN made aware and administered pain medication. Delirium Screening RASS: Alert and calm Confusion Assessment Method-ICU (CAM-ICU/PCAM-ICU) Feature 3: Altered Level of Consciousness: Negative Therapeutic Activity (24 minutes) Verbal, visual, and tactile cues provided throughout treatment session for self- pacing, fall prevention, pursed lip breathing and adherence to post surgical precautions. Therapist monitored patient'svital signs throughout session to assess patient's continued tolerance to activity. Per RN patient is in A-fib. Highest heart rate noted 169; RN made aware; patient asymptomatic. Please see bed mobility and transfer section for further details. Bed Mobility Bed Mobility Interventions: Verbal cues provided for correct BUE placement and for sequencing. Bed Mobility Exam: Sit to Supine Level of Castro: Minimum assist (75% patient's effort) Physical/Nonphysical Assist: Additional assist utilized for safety, Verbal Cues, Set-up required Transfers Transfer Intervention: Verbal cues provided for correct bilateral hand and foot placement during sit to stand transfers. Transfer Interventions: The patient stood at the sink for hygiene approximately 4-5 minutes with CGA/SBA of 1 person; Transfer Exam: Sit to stand Level of Castro: Stand-by assist Physical/Nonphysical Assist: Verbal Cues, Set-up required Assistive Device: Rollator Transfer Exam: Stand to Sit Level of Castro: Stand-by assist Physical/Nonphysical Assist: Verbal Cues, Set-up required Assistive Device: Rollator Gait Training (15 minutes) Device: Rollator Assistance: Standby assist, Minimal verbal cues, Minimal tactile cues Distance: 400ft total with 1 seated rest break Gait Analysis: mild forward trunk lean, decreased jey, decreased bilateral foot clearance, decreased step length, Gait Training Interventions: Verbal cues provided for upright posture, increased stride, improved bilateral foot clearance, safe rollator management and increased body awareness related to walker position. Assessment The patient is demonstrating improvement with transfers and gait as noted by the patient is requiring a decrease in the amount of assistance needed to complete on this date than the previous session.The patient received cues for safe/improved quality of gait pattern and safe walker management. Thepatient continues to present with the following impairments; decreased strength, decreased activitytolerance and decreased safety awareness. PLASTICS AND COMPOSITES INSPECTOR discussed with supervising PT on 06/28/2025 the patient's current functional status and updated discharge recommendations. Case management and patient notified of change. Patient reports a ramp has been built in front of home. The patient will continue to benefit from skilled PT services to address deficits listed to decrease fall risk and maximize functional mobility levels to promote a safe return to the home. PT Recommendations Discharge Destination: Home with assistance Discharge Equipment: Rollator Plan Continue with established PT plan of care 2 - 5 times per week to progress towards PT goals. PT Goals PT GOAL DETAILS Goal Established Date Time Frame Goal Status PT Goal 1: Pt will perform supine <> sit SBA x1 while maintianing precautions 06/26/25 2 weeks PT Goal 2: Pt will perform sit to stand and bed to chair transfers SBA x1 with LRAD 06/26/25 2 weeks PT Goal 3: Pt will ambulate 600' SBA x1 with LRAD and no losses of balance or rest breaks 06/26/25 2 weeks PT Goal 4: Pt will be IND with HEP and d/c recs 06/26/25 2 weeks Written by Beth Ash PTA on 06/28/25 at 12:24 PM. Cosigned by Jigar Vicente at 06/28/2025 3:21 PM EST Associated attestation - Jigar Vicente - 06/28/2025 3:21 PM EST PT and PLASTICS AND COMPOSITES INSPECTOR discussed pt's change in function and PT is in agreement with PLASTICS AND COMPOSITES INSPECTOR's change in PT recommendations. * Significant Event - Sulma Martel APRN - 06/27/2025 4:43 PM EST Ventricular wires discontinued (pulled) without immediate complication. Chest tubes discontinued without immediate complication. Covered with an occlusive dressing. RN alerted of tube & pacing wire removal and chest x-ray is ordered for AM. * Progress Notes - Jemal Obando MD - 06/27/2025 12:56 PM EST Images from the original note were not included. CARDIOTHORACIC SURGERY PROGRESS NOTE SUBJECTIVE Acute Events/Last 24 Hrs: Remains rate controlled afib. HDS. Ambulating. On RA. Had 190 from tubes OBJECTIVE All laboratory data, images, tracings, and vital sign data for past 24 hours are personally reviewed unless otherwise noted. Physical Exam VITALS (last 24h) 06/27/2025 6:00 AM 06/27/2025 7:00 AM 06/27/2025 8:00 AM 06/27/2025 9:00 AM 06/27/2025 10:00 AM 06/27/2025 11:00 AM 06/27/2025 12:00 PM Vitals Systolic 118 113 102 112 105 108 114 Diastolic 85 67 77 78 69 74 81 Heart Rate 131 108 116 118 100 111 103 Temp 36.8 C 37.0 C Resp 31 22 30 31 24 25 29 Weight (kg) 86 kg BMI 27.99 kg/m2 BSA (m2) 2.05 m2 GENERAL: No acute distress, resting comfortably EYES: extraoccular eye movement grossly intact, pupils equal and reactive, anicteric NECK: no JVD, no thyromegaly RESP/CHEST: Symmetric expansion; non labored. CTA bilaterally. CARD: regular rate and rhythm, no murmur appreciated EXTREMITIES: No lower extremity edema present. GI: Soft, Nontender, nondistended. NEURO: AAOx4. No focal deficits PSYCH: Mood and affect congruent and appropriate to situation. INCISIONS: R mini thoracotomy - Surgical dressing in place R groin - surgical dressing in place Intake/Output Intake/Output Summary (Last 24 hours) at 06/27/2025 1256 Last data filed at 06/27/2025 1200 Gross per 24 hour Intake 1632.09 ml Output 2040 ml Net -407.91 ml Results Labs in last 18 hours CBC WBC ?? Hb ?? Plt ?? Hct ?? ANC ?? INR ??, PTT ??, Anti-Xa ?? BMP Na 139 Cl 103 BUN 17 Glu 119 (H) K 4.1 Co2 27 Cr 0.71 Ca 8.0 (L) iCa 4.2 (L) Mg 2.6 (H), Phos 2.3 (L) Lactate ?? LFT AST ?? AlkPhos ?? T Prot ?? ALK ?? Bili ?? Alb ?? D.Bili ?? Imaging No echocardiogram results found for the past 14 days No valid procedures specified. XR Chest 1 View Result Date: 06/27/2025 Interval extubation and removal of the Cameron-Liliane catheter. Otherwise no significant interval change. CRITICAL RESULT: No. COMMUNICATION: Per this written report. Drafted by Blanco Santillan MD on 06/27/2025 9:25 AM Final report signed by Blanco Santillan MD on 06/27/2025 9:27 AM ASSESSMENT & PLAN Principal Problem: Mitral valve insufficiency Active Problems: HTN (hypertension) Gastroesophageal reflux disease COPD (chronic obstructive pulmonary disease) TIA (transient ischemic attack) BMI 28.0-28.9,adult S/P MVR (mitral valve repair) On mechanically assisted ventilation (CMS/HCC) Postoperative pain Atrial fibrillation (CMS/HCC) Nonrheumatic mitral valve regurgitation 75 yrs male who underwent R mini thoracotomy, MVr with 30mm physioflex band on 06/25/[address] Gordon. (2 Days Post-Op) - Aspirin, statin, inc metop to 25mg, cont amio - Remove chest tubes and pacing wires - Restart home Plavix for prior TIA (2023) tomorrow and d/c ASA (06/28) - Start apixaban for afib tomorrow (06/28) - Remove covaderm from right mini thoracotomy and right groin on POD2 - Remove griffin catheter - Mobilize, PT/OT - transfer to telemetry Cardiothoracic Surgery 06/27/25 12:56 PM Cosigned by Samaria Taylor MD at 06/27/2025 3:35 PM EST Associated attestation - Samaria Taylor MD - 06/27/2025 3:35 PM EST I saw and evaluated the patient with the resident/fellow. I discussed the case with the resident/fellow and agree with the findings and plan as documented. * Assessment & Plan Note - Daniella Richardson DO - 06/27/2025 11:08 AM EST Associated Problem(s): Mitral valve insufficiency (Resolved 06/29/2025) -Monitor per protocol. * Assessment & Plan Note - Daniella Richardson DO - 06/27/2025 11:08 AM EST Associated Problem(s): HTN (hypertension) -Monitor per protocol. * Assessment & Plan Note - Daniella Richardson DO - 06/27/2025 11:08 AM EST Associated Problem(s): COPD (chronic obstructive pulmonary disease) - Long-term cigarette smoking history - Not requiring home O2 - Bronchodilators PRN * Assessment & Plan Note - Daniella Richardson DO - 06/27/2025 11:08 AM EST Associated Problem(s): Gastroesophageal reflux disease -Monitor per protocol. * Assessment & Plan Note - Daniella Richardson DO - 06/27/2025 11:08 AM EST Associated Problem(s): Nonrheumatic mitral valve regurgitation (Resolved 06/29/2025) -Monitor per protocol. * Assessment & Plan Note - Daniella Richardson DO - 06/27/2025 11:08 AM EST Associated Problem(s): TIA (transient ischemic attack) - May 2024 - No residual deficits - No hemodynamically significant carotid stenosis 03/2025 - Plavix for secondary prevention, resume when appropriate - Resume ASA + Statin * Assessment & Plan Note - Daniella Richardson DO - 06/27/2025 11:08 AM EST Associated Problem(s): BMI 28.0-28.9,adult - Complicates all aspects of care * Assessment & Plan Note - Daniella Richardson DO - 06/27/2025 11:08 AM EST Associated Problem(s): S/P MVR (mitral valve repair) -Recover per protocol. -Transfer to tele 06/27 * Assessment & Plan Note - Daniella Richardson DO - 06/27/2025 11:08 AM EST Associated Problem(s): On mechanically assisted ventilation (CMS/HCC) (Resolved 06/29/2025) - Fast track appropriate - Reverse neuromuscular blockade - Resolved - Extubated to nasal cannula - Now on room air * Assessment & Plan Note - Daniella Richardson DO - 06/27/2025 11:08 AM EST Associated Problem(s): Postoperative pain - MMPC - Added prn lidocaine patch * Assessment & Plan Note - Daniella Richardson DO - 06/27/2025 11:08 AM EST Associated Problem(s): Atrial fibrillation (CMS/HCC) -Continue amiodarone infusion -PO load amio starting 06/26/25 * Progress Notes - Daniella Richardson DO - 06/27/2025 11:07 AM EST Procedures 06/27/25 Jake Pacheco HPI Jake Pacheco is a 75 y.o. male who presents with Mitral valve insufficiency. If applicable, patient is s/p Procedure(s) and Anesthesia Type: * REPAIR OR REPLACEMENT, MITRAL VALVE VIA THORACOTOMY - General. Patient is 2 Days Post-Op with Cardiothoracic Surgery. Past 24 hours: PM: repeat 40 IV lasix (net even), increase statin, 12.5 metop, advance diet as tolerated + impact AR. Increase bowel reg for tomorrow. AM: Increased metoprolol to 25 mg BID. BHUPINDER griffin. Transfer to tele. Keep ASA and DVT ppx today per CVT, anticoagulation to resume tomorrow. Edited by: Daniella Richardson DO at 06/27/2025 1010 Lines/Drains/Tubes: Patient Lines/Drains/Airways Status Active Active LDAs Name Placement date Placement time Site Days CVC Triple Lumen 06/25/25 Right Internal jugular 06/25/25 0735 Internal jugular 2 Peripheral IV 06/25/25 Left;Posterior Hand 06/25/25 0630 Hand 2 Chest Tube 1 Right Midaxillary 24 Fr 06/25/25 1125 Midaxillary 2 Chest Tube 2 Right Pleural 28 Fr 06/25/25 1128 Pleural 2 GCS: Shahana Coma Scale Score: 15 Review of Systems Constitutional: Negative for chills and fever. Respiratory: Negative for chest tightness and shortness of breath. Cardiovascular: Positive for chest pain. Pain at site of sternal incision Gastrointestinal: Negative for abdominal pain, nausea and vomiting. Musculoskeletal: Negative for back pain and gait problem. Neurological: Negative for dizziness, light-headedness and headaches. 14 point ROS reviewed and otherwise negative or unobtainable except as noted above or in HPI. Vital signs: Vitals: 06/27/25 1100 BP: 108/74 Pulse: (!) 111 Resp: 25 Temp: SpO2: 97% Intake/Output Summary (Last 24 hours) at 06/27/2025 1107 Last data filed at 06/27/2025 1100 Gross per 24 hour Intake 1398.76 ml Output 2090 ml Net -691.24 ml Physical Exam: Sedation was held for the purposes of examination. Physical Exam Vitals reviewed. Constitutional: General: He is not in acute distress. Appearance: Normal appearance. He is not toxic-appearing or diaphoretic. HENT: Head: Normocephalic and atraumatic. Mouth/Throat: Mouth: Mucous membranes are dry. Pharynx: Oropharynx is clear. Eyes: General: Vision grossly intact. Extraocular Movements: Extraocular movements intact. Pupils: Pupils are equal, round, and reactive to light. Cardiovascular: Rate and Rhythm: Normal rate. Rhythm irregular. Pulses: Normal pulses. Heart sounds: Normal heart sounds. Comments: Atrial fibrillation, HR 90s Pulmonary: Effort: Pulmonary effort is normal. Breath sounds: Normal breath sounds and air entry. Comments: No unanticipated findings. Abdominal: General: Bowel sounds are normal. Palpations: Abdomen is soft. There is no mass. Musculoskeletal: General: No deformity. Normal range of motion. Cervical back: Normal range of motion. No rigidity. Right lower leg: Edema present. Left lower leg: Edema present. Skin: General: Skin is warm and dry. Neurological: General: No focal deficit present. Mental Status: He is alert and easily aroused. Mental status is at baseline. Psychiatric: Mood and Affect: Mood normal. Behavior: Behavior normal. Behavior is cooperative. Thought Content: Thought content normal. Judgment: Judgment normal. Results Review I have reviewed the latest lab and imaging results. Assessment and Plan: This patient is critically ill. Assessment & Plan Mitral valve insufficiency Present on Admission: Unknown -Monitor per protocol. HTN (hypertension) Present on Admission: Yes -Monitor per protocol. COPD (chronic obstructive pulmonary disease) Present on Admission: Yes - Long-term cigarette smoking history - Not requiring home O2 - Bronchodilators PRN Gastroesophageal reflux disease Present on Admission: Yes -Monitor per protocol. Nonrheumatic mitral valve regurgitation Present on Admission: Yes -Monitor per protocol. TIA (transient ischemic attack) Present on Admission: Yes - May 2024 - No residual deficits - No hemodynamically significant carotid stenosis 03/2025 - Plavix for secondary prevention, resume when appropriate - Resume ASA + Statin BMI 28.0-28.9,adult Present on Admission: Not Applicable - Complicates all aspects of care S/P MVR (mitral valve repair) Present on Admission: Not Applicable -Recover per protocol. -Transfer to [facility] 06/27 On mechanically assisted ventilation (CMS/HCC) Present on Admission: Not Applicable - Fast track appropriate - Reverse neuromuscular blockade - Resolved - Extubated to nasal cannula - Now on room air Postoperative pain Present on Admission: Unknown - MMPC - Added prn lidocaine patch Atrial fibrillation (CMS/HCC) Present on Admission: Unknown -Continue amiodarone infusion -PO load amio starting 06/26/25 Non-Hospital Problems Smoking High cholesterol Primary localized osteoarthritis of left hip S/P total left hip arthroplasty Nonrheumatic mitral (valve) insufficiency Primary osteoarthritis of left hip Overview Signed 11/07/2021 9:23 AM by Orlando Malloy MD Added automatically from request for surgery [id number] Encounter for preprocedural cardiovascular examination Heart failure Daniella Richardson DO Cosigned by Clemente Pollard MD at 06/27/2025 2:25 PM EST Associated attestation - Clemente Pollard MD - 06/27/2025 2:25 PM EST I saw and evaluated the patient with the resident/fellow. I discussed the case with the resident/fellow and agree with the findings and plan as documented. * Significant Event - Daniella Richarsdon DO - 06/27/2025 10:52 AM EST Post-op day 2 mini thoracotomy mitral valve repair with Dr. Gordon. Patient to be transferred to telemetry today per CVT surgery. No further CVICU needs at this time. [facility] will sign off. Dnaiella Richardson DO Anesthesiology PGY-4 Pager # [phone] * Care Plan - Betito Gold RN - 06/27/2025 10:16 AM EST Problem: Adult Inpatient Plan of Care Goal: Plan of Care Review Outcome: Ongoing, Progressing Flowsheets (Taken 06/27/2025 1015) Plan of Care Reviewed With: patient family Goal: Patient-Specific Goal (Individualized) Outcome: Ongoing, Progressing Goal: Absence of Hospital-Acquired Illness or Injury Outcome: Ongoing, Progressing Intervention: Identify and Manage Fall Risk Flowsheets (Taken 06/27/2025 1000) Safety Promotion/Fall Prevention: activity supervised lighting adjusted nonskid shoes/slippers when out of bed room organization consistent safety round/check completed Intervention: Prevent Skin Injury Flowsheets Taken 06/27/2025 1000 Skin Protection: incontinence pads utilized pulse oximeter probe site changed transparent dressing maintained Taken 06/27/2025 0800 Body Position: right turned Intervention: Prevent and Manage VTE (Venous Thromboembolism) Risk Flowsheets (Taken 06/27/2025 1000) VTE Prevention/Management: bilateral SCDs (sequential compression devices) on Intervention: Prevent Infection Flowsheets (Taken 06/27/2025 1000) Infection Prevention: environmental surveillance performed equipment surfaces disinfected hand hygiene promoted personal protective equipment utilized rest/sleep promoted single patient room provided Goal: Optimal Comfort and Wellbeing Outcome: Ongoing, Progressing Intervention: Monitor Pain and Promote Comfort Flowsheets (Taken 06/27/2025 1000) Pain Management Interventions: medication (see MAR) ambulation/increased activity breathing exercises care clustered emotional support pain management plan reviewed with patient/caregiver pillow support provided position adjusted quiet environment facilitated relaxation techniques promoted rest Intervention: Provide Person-Centered Care Flowsheets (Taken 06/27/2025 1000) Trust Relationship/Rapport: choices provided care explained emotional support provided questions answered empathic listening provided questions encouraged reassurance provided thoughts/feelings acknowledged Problem: Fall Injury Risk Goal: Absence of Fall and Fall-Related Injury Outcome: Ongoing, Progressing Intervention: Identify and Manage Contributors Flowsheets (Taken 06/27/2025 1000) Medication Review/Management: medications reviewed high-risk medications identified Self-Care Promotion: independence encouraged Intervention: Promote Injury-Free Environment Flowsheets (Taken 06/27/2025999) Safety Promotion/Fall Prevention: activity supervised lighting adjusted nonskid shoes/slippers when out of bed room organization consistent safety round/check completed Problem: Infection Goal: Absence of Infection Signs and Symptoms Outcome: Ongoing, Progressing Intervention: Prevent or Manage Infection Flowsheets (Taken 06/27/2025 1000) Infection Management: aseptic technique maintained Fever Reduction/Comfort Measures: lightweight clothing lightweight bedding Isolation Precautions: protective precautions maintained Problem: Oral Intake Inadequate Goal: Improved Oral Intake Outcome: Ongoing, Progressing Intervention: Promote and Optimize Oral Intake Flowsheets (Taken 06/27/2025 1000) Oral Nutrition Promotion: physical activity promoted rest periods promoted Nutrition Interventions: food preferences provided * Care Plan - Jed Contreras RN - 06/27/2025 1:45 AM EDT Problem: Adult Inpatient Plan of Care Goal: Plan of Care Review Outcome: Ongoing, Progressing Flowsheets (Taken 06/26/2025 1658 by Betito Gold, RN) Plan of Care Reviewed With: patient family Goal: Patient-Specific Goal (Individualized) Outcome: Ongoing, Progressing Flowsheets (Taken 06/25/2025 0646 by Rolanda Aaron, RN) Patient/Family-Specific Goals (Include Timeframe): Patient will remain free from falls while in PreOp Goal: Absence of Hospital-Acquired Illness or Injury Outcome: Ongoing, Progressing Intervention: Identify and Manage Fall Risk Flowsheets (Taken 06/26/2025 1900) Safety Promotion/Fall Prevention: activity supervised assistive device/personal items within reach clutter-free environment maintained fall prevention program maintained lighting adjusted nonskid shoes/slippers when out of bed room organization consistent safety round/check completed toileting scheduled Intervention: Prevent Skin Injury Flowsheets Taken 06/27/2025 0000 by Jed Contreras RN Body Position: left turned Taken 06/26/20251644 by Betito Gold, RN Skin Protection: incontinence pads utilized pulse oximeter probe site changed transparent dressing maintained Intervention: Prevent and Manage VTE (Venous Thromboembolism) Risk Flowsheets (Taken 06/27/2025 0000) VTE Prevention/Management: bilateral SCDs (sequential compression devices) on Intervention: Prevent Infection Flowsheets (Taken 06/26/20251644 by Betito Gold, RN) Infection Prevention: environmental surveillance performed equipment surfaces disinfected hand hygiene promoted rest/sleep promoted single patient room provided Goal: Optimal Comfort and Wellbeing Outcome: Ongoing, Progressing Intervention: Monitor Pain and Promote Comfort Flowsheets (Taken 06/27/2025 0010) Pain Management Interventions: medication (see MAR) [id number] dosing utilized quiet environment facilitated relaxation techniques promoted rest position adjusted pillow support provided Intervention: Provide Person-Centered Care Flowsheets (Taken 06/26/20251644 by Betito Gold, RN) Trust Relationship/Rapport: care explained choices provided emotional support provided empathic listening provided questions answered questions encouraged reassurance provided thoughts/feelings acknowledged Problem: Fall Injury Risk Goal: Absence of Fall and Fall-Related Injury Outcome: Ongoing, Progressing Intervention: Identify and Manage Contributors Flowsheets (Taken 06/26/20251644 by Betito Gold, RN) Medication Review/Management: medications reviewed high-risk medications identified Self-Care Promotion: independence encouraged Intervention: Promote Injury-Free Environment Flowsheets (Taken 06/26/2025 1900) Safety Promotion/Fall Prevention: activity supervised assistive device/personal items within reach clutter-free environment maintained fall prevention program maintained lighting adjusted nonskid shoes/slippers when out of bed room organization consistent safety round/check completed toileting scheduled Problem: Infection Goal: Absence of Infection Signs and Symptoms Outcome: Ongoing, Progressing Intervention: Prevent or Manage Infection Flowsheets Taken 06/26/20251644 by Betito Gold RN Infection Management: aseptic technique maintained Isolation Precautions: protective Taken 06/25/2025 1700 by Betito Gold, RN Fever Reduction/Comfort Measures: lightweight clothing lightweight bedding Problem: Oral Intake Inadequate Goal: Improved Oral Intake Outcome: Ongoing, Progressing Intervention: Promote and Optimize Oral Intake Flowsheets (Taken 06/26/20251644 by Betito Gold, RN) Oral Nutrition Promotion: rest periods promoted Nutrition Interventions: diet advanced * Care Plan - Betito Gold RN - 06/26/2025 4:59 PM EDT Problem: Adult Inpatient Plan of Care Goal: Plan of Care Review Outcome: Ongoing, Progressing Flowsheets (Taken 06/26/2025 1658) Plan of Care Reviewed With: patient family Goal: Patient-Specific Goal (Individualized) Outcome: Ongoing, Progressing Goal: Absence of Hospital-Acquired Illness or Injury Outcome: Ongoing, Progressing Intervention: Identify and Manage Fall Risk Flowsheets (Taken 06/26/2025 1645) Safety Promotion/Fall Prevention: activity supervised assistive device/personal items within reach clutter-free environment maintained fall prevention program maintained lighting adjusted room organization consistent safety round/check completed Intervention: Prevent Skin Injury Flowsheets Taken 06/26/20251644 Skin Protection: incontinence pads utilized pulse oximeter probe site changed transparent dressing maintained Taken 06/26/2025 1600 Body Position: left turned Intervention: Prevent and Manage VTE (Venous Thromboembolism) Risk Flowsheets (Taken 06/26/2025 164) VTE Prevention/Management: bilateral SCDs (sequential compression devices) on Intervention: Prevent Infection Flowsheets (Taken 06/26/2025 1645) Infection Prevention: environmental surveillance performed equipment surfaces disinfected hand hygiene promoted rest/sleep promoted single patient room provided Goal: Optimal Comfort and Wellbeing Outcome: Ongoing, Progressing Intervention: Monitor Pain and Promote Comfort Flowsheets (Taken 06/26/20251644 by Ky Hernandez, RN) Pain Management Interventions: medication (see MAR) Intervention: Provide Person-Centered Care Flowsheets (Taken 06/26/20251644) Trust Relationship/Rapport: care explained choices provided emotional support provided empathic listening provided questions answered questions encouraged reassurance provided thoughts/feelings acknowledged Problem: Fall Injury Risk Goal: Absence of Fall and Fall-Related Injury Outcome: Ongoing, Progressing Intervention: Identify and Manage Contributors Flowsheets (Taken 06/26/20251644) Medication Review/Management: medications reviewed high-risk medications identified Self-Care Promotion: independence encouraged Intervention: Promote Injury-Free Environment Flowsheets (Taken 06/26/20251644) Safety Promotion/Fall Prevention: activity supervised assistive device/personal items within reach clutter-free environment maintained fall prevention program maintained lighting adjusted room organization consistent safety round/check completed Problem: Infection Goal: Absence of Infection Signs and Symptoms Outcome: Ongoing, Progressing Intervention: Prevent or Manage Infection Flowsheets Taken 06/26/20251644 Infection Management: aseptic technique maintained Isolation Precautions: protective Taken 06/25/2025 170 Fever Reduction/Comfort Measures: lightweight clothing lightweight bedding Problem: Oral Intake Inadequate Goal: Improved Oral Intake Outcome: Ongoing, Progressing Intervention: Promote and Optimize Oral Intake Flowsheets (Taken 06/26/20251644) Oral Nutrition Promotion: rest periods promoted Nutrition Interventions: diet advanced * Assessment & Plan Note - Clemente Pollard MD - 06/26/2025 1:27 PM EDTAssociated Problem(s): Mitral valve insufficiency (Resolved 06/29/2025) -Monitor per protocol. * Assessment & Plan Note - Clemente Pollard MD - 06/26/2025 1:27 PM EDTAssociated Problem(s): HTN (hypertension) -Monitor per protocol. * Assessment & Plan Note - Clemente Pollard MD - 06/26/2025 1:27 PM EDTAssociated Problem(s): COPD (chronic obstructive pulmonary disease) - Long-term cigarette smoking history - Not requiring home O2 - Bronchodilators PRN * Assessment & Plan Note - Clemente Pollard MD - 06/26/2025 1:27 PM EDTAssociated Problem(s): Gastroesophageal reflux disease -Monitor per protocol. * Assessment & Plan Note - Clemente Pollard MD - 06/26/2025 1:27 PM EDTAssociated Problem(s): Nonrheumatic mitral valve regurgitation (Resolved 06/29/2025) -Monitor per protocol. * Assessment & Plan Note - Clemente Pollard MD - 06/26/2025 1:27 PM EDTAssociated Problem(s): TIA (transient ischemic attack) - May 2024 - No residual deficits - No hemodynamically significant carotid stenosis 03/2025 - Plavix for secondary prevention, resume when appropriate - Resume ASA + Statin * Assessment & Plan Note - Clemente Pollard MD - 06/26/2025 1:27 PM EDTAssociated Problem(s): BMI 28.0-28.9,adult - Complicates all aspects of care * Assessment & Plan Note - Clemente Pollard MD - 06/26/2025 1:27 PM EDTAssociated Problem(s): S/P MVR (mitral valve repair) -Recover per protocol. -Barriers to discharge from ICU: * Assessment & Plan Note - Clemente Pollard MD - 06/26/2025 1:27 PM EDTAssociated Problem(s): On mechanically assisted ventilation ([facility]) (Resolved 06/29/2025) - Fast track appropriate - Reverse neuromuscular blockade - Resolved - Extubated to nasal cannula * Assessment & Plan Note - Clemente Pollard MD - 06/26/2025 1:27 PM EDTAssociated Problem(s): Postoperative pain - MMPC * Assessment & Plan Note - Clemente Pollard MD - 06/26/2025 1:27 PM EDTAssociated Problem(s): Atrial fibrillation (CMS/HCC) -Continue amiodarone infusion -PO load amio starting 06/26/25 * Progress Notes - Clemente Pollard MD - 06/26/2025 1:24 PM EDTAssociated Order(s): Critical Care Post-Procedure Diagnose(s): Mitral valve disease Critical Care Performed by: Clemente Pollard MD Authorized by: Clemente Pollard MD Critical care provider statement: Critical care time (minutes): 38 Critical care time was exclusive of: Separately billable procedures and treating other patients andteaching time Critical care was time spent personally by me on the following activities: Development of treatmentplan with patient or surrogate, ordering and performing treatments and interventions, discussions with consultants, ordering and review of laboratory studies, discussions with primary provider, ordering and review of radiographic studies, evaluation of patient's response to treatment and examination of patient I assumed subsequent critical care for this patient from a provider in my division, on the same day: yes Critical care statement: I saw and evaluated the patient with the resident/ fellow. I discussed thecase with the resident/ fellow and agree with the findings and plan as documented. 06/26/25 Jake Pacheco HPI Jake Pacheco is a 75 y.o. male who presents with Mitral valve insufficiency. If applicable, patient is s/p Procedure(s) and Anesthesia Type: * REPAIR OR REPLACEMENT, MITRAL VALVE VIA THORACOTOMY - General. Patient is 1 Day Post-Op with Cardiothoracic Surgery. Past 24 hours: PM: 1u FFP ordered for TEG. CT output improving. Ctn'ed afib. Extubate. Lasix for AM. Hydral PRNs. AM: On 3L via nasal cannula. Passed bedside swallow. Start on CLD. DC arterial line. BHUPINDER carbone. Edited by: Daniella Richardson DO at 06/26/2025 1048 Lines/Drains/Tubes: Patient Lines/Drains/Airways Status Active Active LDAs Name Placement date Placement time Site Days CVC Triple Lumen 06/25/25 Right Internal jugular 06/25/25 0735 Internal jugular 1 Peripheral IV 06/25/25 Left;Posterior Hand 06/25/25 0630 Hand 1 Chest Tube 1 Right Midaxillary 24 Fr 06/25/25 1125 Midaxillary 1 Chest Tube 2 Right Pleural 28 Fr 06/25/25 1128 Pleural 1 Urethral Catheter Single lumen;Temperature probe;Non-latex 16 Fr. 06/25/25 0730 -- 1 GCS: Shahana Coma Scale Score: 15 Review of Systems Constitutional: Negative for chills and fever. Respiratory: Negative for chest tightness and shortness of breath. Cardiovascular: Positive for chest pain. Pain at site of sternal incision Gastrointestinal: Negative for abdominal pain, nausea and vomiting. Musculoskeletal: Negative for back pain and gait problem. Neurological: Negative for dizziness, light-headedness and headaches. 14 point ROS reviewed and otherwise negative or unobtainable except as noted above or in HPI. Vital signs: Vitals: 06/26/25 1300 BP: 107/75 Pulse: 109 Resp: 16 Temp: SpO2: 100% Intake/Output Summary (Last 24 hours) at 06/26/2025 1326 Last data filed at 06/26/2025 1300 Gross per 24 hour Intake 972.74 ml Output 3050 ml Net -2077.26 ml Physical Exam: Sedation was held for the purposes of examination. Physical Exam Vitals reviewed. Constitutional: General: He is not in acute distress. Appearance: Normal appearance. He is not toxic-appearing or diaphoretic. HENT: Head: Normocephalic and atraumatic. Mouth/Throat: Mouth: Mucous membranes are dry. Pharynx: Oropharynx is clear. Eyes: General: Vision grossly intact. Extraocular Movements: Extraocular movements intact. Pupils: Pupils are equal, round, and reactive to light. Cardiovascular: Rate and Rhythm: Normal rate. Rhythm irregular. Pulses: Normal pulses. Heart sounds: Normal heart sounds. Comments: Atrial fibrillation, HR 90s Pulmonary: Effort: Pulmonary effort is normal. Breath sounds: Normal breath sounds and air entry. Comments: No unanticipated findings. Abdominal: General: Bowel sounds are normal. Palpations: Abdomen is soft. There is no mass. Musculoskeletal: General: No deformity. Normal range of motion. Cervical back: Normal range of motion. No rigidity. Right lower leg: Edema present. Left lower leg: Edema present. Skin: General: Skin is warm and dry. Neurological: General: No focal deficit present. Mental Status: He is alert and easily aroused. Mental status is at baseline. Psychiatric: Mood and Affect: Mood normal. Behavior: Behavior normal. Behavior is cooperative. Thought Content: Thought content normal. Judgment: Judgment normal. Results Review I have reviewed the latest lab and imaging results. Assessment and Plan: This patient is critically ill. Assessment & Plan Mitral valve insufficiency Present on Admission: Unknown -Monitor per protocol. HTN (hypertension) Present on Admission: Yes -Monitor per protocol. COPD (chronic obstructive pulmonary disease) Present on Admission: Yes - Long-term cigarette smoking history - Not requiring home O2 - Bronchodilators PRN Gastroesophageal reflux disease Present on Admission: Yes -Monitor per protocol. Nonrheumatic mitral valve regurgitation Present on Admission: Yes -Monitor per protocol. TIA (transient ischemic attack) Present on Admission: Yes - May 2024 - No residual deficits - No hemodynamically significant carotid stenosis 03/2025 - Plavix for secondary prevention, resume when appropriate - Resume ASA + Statin BMI 28.0-28.9,adult Present on Admission: Not Applicable - Complicates all aspects of care S/P MVR (mitral valve repair) Present on Admission: Not Applicable -Recover per protocol. -Barriers to discharge from ICU: On mechanically assisted ventilation (CMS/HCC) Present on Admission: Not Applicable - Fast track appropriate - Reverse neuromuscular blockade - Resolved - Extubated to nasal cannula Postoperative pain Present on Admission: Unknown - [facility] Atrial fibrillation (CMS/HCC) Present on Admission: Unknown -Continue amiodarone infusion -PO load amio starting 06/26/25 Non-Hospital Problems Smoking High cholesterol Primary localized osteoarthritis of left hip S/P total left hip arthroplasty Nonrheumatic mitral (valve) insufficiency Primary osteoarthritis of left hip Overview Signed 11/07/2021 9:23 AM by Orlando Malloy MD Added automatically from request for surgery [id number] Encounter for preprocedural cardiovascular examination Heart failure Daniella Richardson DO * Consults - Emily Stallworth RD - 06/26/2025 11:30 AM EDTAssociated Order(s): IP CONSULT TO NUTRITION SERVICES Adult Nutrition Evaluation Note Jake Pacheco 75 y.o. male CSN: [id number] Room/Bed 213/213A Nutrition evaluation type: assessment Reason for evaluation: provider consult Hospital course: 75y/o male admitted 06/25 for mitral valve insufficiency. S/p mitral valve repair on 06/25. Past medical/ surgical history: Past Medical History[1] Surgical History[2] Social history: Former smoker - 1ppd for 64 years, previously used marijuana No episcopal needs Additional comments: 06/26: Weekend coverage. Vitals and Basic Assessment: BP: 105/68 Temp: 37.6 ??C (99.7 ??F) Invasive Ventilator Initiated (ETT/Trach Only): Yes Oxygen Therapy: Supplemental oxygen O2 Delivery Method: Nasal cannula Shahana Coma Scale Score: 15 Paul Scale Score: 20 Edema: Generalized +urethral catheter +Chest tube x2 Skin: surgical wound on right lower chest Allergies: NKFA Medications: Current Scheduled Medications[3] Current Continuous Medications[4] Current PRN Medications[5] Medications Ordered Prior to Encounter[6] Labs: Lab Results Component Value Date WBC 17.79 (H) 06/25/2025 HGB 11.0 (L) 06/26/2025 HCT 33.8 (L) 06/26/2025 MCV 89 06/25/2025 PLT 168 06/25/2025 Lab Results Component Value Date GLUCOSE 166 (H) 06/25/2025 CALCIUM 7.6 (L) 06/25/2025 NA 141 06/25/2025 K 4.8 06/26/2025 CO2 22 06/25/2025 CL 108 (H) 06/25/2025 BUN 13 06/25/2025 CREATININE 0.61 (L) 06/25/2025 PHOS 3.1 06/25/2025 MG 3.0 (H) 06/25/2025 HGBA1C 5.5 06/18/2025 LACTATE 1.2 06/26/2025 EGFR 101.4 06/25/2025 Lab Results Component Value Date ALT 19 06/18/2025 AST 26 06/18/2025 ALKPHOS 57 06/18/2025 BILITOT 0.6 06/18/2025 Anthropometrics: Height: 175.3 cm (5' 9.02 ) Weight: 89.3 kg (196 lb 13.9 oz) BMI (Calculated): 29.06 Weight Evaluation: Overweight (BMI 25-29.9) Louise Body Weight (kg): 73 Percent Louise Body Weight: 122 Wt Readings from Last 10 Encounters: 06/26/25 89.3 kg (196 lb 13.9 oz) 06/18/25 91.2 kg (201 lb) 05/28/25 88.9 kg (195 lb 15.8 oz) 05/24/25 88.6 kg (195 lb 5.2 oz) 04/12/25 87.4 kg (192 lb 10.9 oz) 04/09/25 88 kg (194 lb 0.1 oz) 03/29/25 88.3 kg (194 lb 8.9 oz) 03/15/25 89.2 kg (196 lb 10.4 oz) 01/01/23 93.2 kg (205 lb 7.5 oz) 02/27/22 98 kg (216 lb 0.8 oz) 2.5% (5#) wt loss x 1 week; meets criteria for severe malnutrition based on chronic illness/injury Estimated Needs: Metabolic Cart Study Results: Current Nutrition Intake: Diet Supplements: None Diet Order: Adult Diet Diet Texture: Clear liquid Fat Restriction: Cardiac Percent Meals Eaten (%): Establishing Diet Experience and Nutrition History: Diet Education Provided: Will monitor Nutrition Focused Physical Exam: Unable to Complete Exam: Weekend coverage Physical exam performed on (date): Pending Assessment of Malnutrition: Nutrition Problem: Inadequate energy intake related to s/p mitral valve repair as evidenced by clear liquid diet. Status of Nutrition Diagnosis: New Nutrition Interventions and Recommendations: Continue Clear Liquid, cardiac diet as tolerated. Add Impact AR BID for post-op nutritional supplementation once diet is advanced. Rec obtaining weight 1x/week via standing scale if able. Nutrition Monitoring and Goals: - Will monitor PO intake, weight status, lab results, GI tolerance, and skin integrity - Pt will tolerate >75% avg of meal intakes. - NFPE at follow-up as able. 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 HIP ARTHROPLASTY Left 12/08/2021 Left DONELL. TOTAL HIP ARTHROPLASTY [3] aspirin, 81 mg, Oral, Daily atorvastatin, 20 mg, Oral, Nightly docusate sodium, 100 mg, Oral, BID heparin (porcine), 5,000 Units, Subcutaneous, q8h LASHONDA mupirocin, 1 Application, Each Nostril, BID pantoprazole, 40 mg, Intravenous, Daily senna, 17.2 mg, Oral, Nightly sodium chloride, 10 mL, Intravenous, q12h [4] amiodarone, 0.5 mg/min, Last Rate: 0.5 mg/min (06/26/25 1100) clevidipine, 1 mg/hr, Last Rate: Stopped (06/25/25 1738) norepinephrine, 0-0.1 mcg/kg/min (Dosing Weight), Last Rate: Stopped (06/25/25 1255) propofol, 10-50 mcg/kg/min (Dosing Weight), Last Rate: Stopped (06/25/25 2103) [5] PRN medications: acetaminophen, acetaminophen, albumin human, hydrALAZINE, HYDROmorphone ORHYDROmorphone, ondansetron, oxyCODONE OR oxyCODONE, polyethylene glycol, sodium chloride, sodium chloride [6] No current facility-administered medications on file prior to encounter. Current Outpatient Medications on File Prior to Encounter Medication Sig Dispense Refill acetaminophen (Tylenol) 500 MG tablet Take 2 tablets (1,000 mg total) by mouth every 8 (eight) hours if needed for mild pain. 100 tablet 1 aspirin 81 MG EC tablet Take 1 tablet by mouth daily. atorvastatin (Lipitor) 20 MG tablet Take 1 tablet by mouth daily. bisoprolol-hydroCHLOROthiazide (Ziac) 5-6.25 MG tablet 1 (one) time each day. losartan (Cozaar) 100 MG tablet Take 1 tablet by mouth every morning. omeprazole (PriLOSEC) [address] capsule Take 1 capsule (20 mg total) by mouth 1 (one) time each day.Do not crush or chew. Take for 4 weeks post-operatively. 30 capsule 0 tiZANidine (Zanaflex) 4 MG tablet 1 (one) time each day. traMADol (Ultram) 50 MG tablet Take 1 tablet (50 mg total) by mouth every 4 (four) hours if needed for severe pain. 60 tablet 0 clopidogrel (Plavix) 75 MG tablet Take 1 tablet by mouth every morning. meloxicam (Mobic) 15 MG tablet Take 1 tablet (15 mg total) by mouth 1 (one) time each day. 30 tablet 0 mupirocin (Bactroban) 2 % ointment Apply 1 Application topically 2 times a day. Apply to each nostril twice daily for 5 days before surgery. 15 g 0 * Progress Notes - Jemal Obanod MD - 06/26/2025 11:13 AM EDT Images from the original note were not included. CARDIOTHORACIC SURGERY PROGRESS NOTE SUBJECTIVE Acute Events/Last 24 Hrs: Rate controlled afib. Started amio gtt. Maps 80s. 3L NC. Had 1.1L from tubes, now mostly serous. H/H stable. OBJECTIVE All laboratory data, images, tracings, and vital sign data for past 24 hours are personally reviewed unless otherwise noted. Physical Exam VITALS (last 24h) 06/26/2025 4:00 AM 06/26/2025 5:00 AM 06/26/2025 6:00 AM 06/26/2025 8:00 AM 06/26/2025 9:00 AM 06/26/2025 10:00 AM 06/26/2025 11:00 AM Vitals Heart Rate 103 104 97 112 96 107 100 Temp 37.7 C 37.6 C Resp 26 20 20 34 27 20 18 PAP: (19-37)/(8-26) 25/8 CVP: [6 mmHg] 6 mmHg CO: [2.6 L/min-4.9 L/min] 3.8 L/min CI: [1.3 L/min/m2-2.4 L/min/m2] 1.9 L/min/m2 Invasive Ventilator Initiated (ETT/Trach Only): Yes O2 Delivery Method: Nasal cannula Vent Mode: PS/CPAP Invasive Vent Status (ETT, Trach Only): Discontinued S VT: 460 mL VT SUP: 8 cm H20 Insp Time (sec): 0.9 sec Vent Mode: PS/CPAP FiO2 (%): 40 % S RR: 20 S VT: 460 mL VT SUP: 8 cm H20 MAP (cm H2O): 8 GENERAL: No acute distress, resting comfortably EYES: extraoccular eye movement grossly intact, pupils equal and reactive, anicteric NECK: no JVD, no thyromegaly RESP/CHEST: Symmetric expansion; non labored. CTA bilaterally. CARD: regular rate and rhythm, no murmur appreciated EXTREMITIES: No lower extremity edema present. GI: Soft, Nontender, nondistended. NEURO: AAOx4. No focal deficits PSYCH: Mood and affect congruent and appropriate to situation. INCISIONS: R mini thoracotomy - Surgical dressing in place R groin - surgical dressing in place Intake/Output Intake/Output Summary (Last 24 hours) at 06/26/2025 1113 Last data filed at 06/26/2025 1100 Gross per 24 hour Intake 939.4 ml Output 3215 ml Net -2275.6 ml Results Labs in last 18 hours CBC WBC 17.79 (H) Hb 11.0 (L) Plt 168 Hct 33.8 (L) ANC ?? INR ??, PTT ??, Anti-Xa ?? BMP Na 141 Cl 108 (H) BUN 13 Glu 166 (H) K 4.8 Co2 22 Cr 0.61 (L) Ca 7.6 (L) iCa 4.2 (L) Mg ??, Phos ?? Lactate 1.2 LFT AST ?? AlkPhos ?? T Prot ?? ALK ?? Bili ?? Alb ?? D.Bili ?? Imaging No echocardiogram results found for the past 14 days No valid procedures specified. XR Chest 1 View Result Date: 06/26/2025 Trace right apical pneumothorax. Otherwise, no significant interval change. CRITICAL RESULT: No. COMMUNICATION: Per this written report. Drafted by Blanco Santillan MD on 06/26/2025 10:57 AM Final report signed by Blanco Santillan MD on 06/26/2025 10:59 AM XR Chest 1 View Result Date: 06/25/2025 Interval intubation with tip of the ET tube terminating approximately 8 cm above the sujey. Recommend advancement of the ET tube. Minimal bibasilar atelectasis. No pneumothorax. Interval placement of additional lines/tubes as discussed above. CRITICAL RESULT: No. COMMUNICATION: Per this written report. By electronically signing this report, I, the attending physician, attest that I have personally reviewed the images/data for the above examination(s) and agree with the final edited report. Drafted by Kiran Roche MD on 06/25/2025 2:39 PM Final report signed by Michel Dior MD on 06/25/2025 2:54 PM XR Abdomen 1 View Result Date: 06/25/2025 The tip of the enteric tube is in the proximal stomach with the proximal side port in the distal esophagus. CRITICAL RESULT: No. COMMUNICATION: Per this written report. Drafted by Oniel Morgan MD on 06/25/2025 2:24 PM Final report signed by Oniel Morgan MD on 06/25/2025 2:27 PM ASSESSMENT & PLAN Principal Problem: Mitral valve insufficiency Active Problems: HTN (hypertension) Gastroesophageal reflux disease COPD (chronic obstructive pulmonary disease) TIA (transient ischemic attack) BMI 28.0-28.9,adult S/P MVR (mitral valve repair) On mechanically assisted ventilation (CMS/HCC) Postoperative pain Nonrheumatic mitral valve regurgitation 75 yrs male who underwent R mini thoracotomy, MVr with 30mm physioflex band on 06/25/[address] Gordon. (1 Day Post-Op) - Aspirin, statin, start beta odalys, transition amio to PO - 40mg IV Lasix - Continue chest tubes and pacing wires - hold home Plavix for prior TIA (2023) - Remove covaderm from right mini thoracotomy and right groin on POD2 - Remove pulmonary artery catheter - Remove griffin catheter - Mobilize, PT/OT - Continue ICU care due to complex medical management Cardiothoracic Surgery 06/26/25 11:13 AM Cosigned by Khushbu Gordon MD at 06/28/2025 10:16 AM EST Associated attestation - Khushbu Gordon MD - 06/28/2025 10:16 AM EST I saw and evaluated the patient with the resident/fellow. I discussed the case with the resident/fellow and agree with the findings and plan as documented. * Progress Notes - Merlyn Cisneros - 06/26/2025 8:58 AM EDT Physical Therapy Evaluation Patient Name: Jake Pacheco Today's Date: 06/26/2025 PT Discharge Recommendations: Home with assistance, Pending progress Equipment Recommended: Rollator Total Treatment Time: 25 minutes History Jake Pacheco is 75 y.o. male admitted 06/25/2025 for work-up of Mitral valve insufficiency. Problem List Active Hospital Problems Diagnosis Date Noted S/P MVR (mitral valve repair) 06/25/2025 On mechanically assisted ventilation ([facility]) 06/25/2025 Postoperative pain 06/25/2025 BMI 28.0-28.9,adult 03/29/2025 COPD (chronic obstructive pulmonary disease) 03/11/2025 TIA (transient ischemic attack) 03/11/2025 HTN (hypertension) 11/29/2021 Gastroesophageal reflux disease 11/29/2021 Mitral valve insufficiency 05/24/2025 Nonrheumatic mitral valve regurgitation 04/01/2025 Procedures 06/25/2025 Procedure(s): REPAIR OR REPLACEMENT, MITRAL VALVE VIA THORACOTOMY Past Medical History Patient has a past medical history of Hypertension and Osteoarthritis. Past Surgical History Patient has a past surgical history that includes Appendectomy; Total hip arthroplasty; Hip Arthroplasty (Left, 12/08/2021); and Cardiac catheterization (04/09/2025). Precautions Medical Precautions: Post-Surgical precautions, Fall precautions Post-Surgical Precautions: R thoracotomy Subjective Pt agreeable to PT session Participants in Care Family/Caregiver Present: No Presentation Oxygen Therapy: Supplemental oxygen O2 Delivery Method: Nasal cannula O2 Flow Rate (L/min): 3 L/min Lines and Tubes: Telemetry Arterial Line 06/25/25 Left Radial (Active) CVC Triple Lumen 06/25/25 Right Internal jugular (Active) Chest Tube 1 Right Midaxillary 24 Fr (Active) Chest Tube 2 Right Pleural 28 Fr (Active) Urethral Catheter Single lumen;Temperature probe;Non-latex 16 Fr. (Active) Pulmonary Artery Catheter 06/25/25 Internal jugular Right (Active) Peripheral IV 06/25/25 Left;Posterior Hand (Active) Pre-Session: Sitting in chair, Lines intact Pre-Session Comments: RN agreeable Post-Session: Sitting in chair, Lines intact, RN notified, Call light in reach Post-Session Comments: All needs met. RN present and ok without chair alarm Home Living/Set-up Lives With: Significant other Home Type: House Home Adaptive Equipment: shower chair, Rolling walker, Rollator, Bedside commode, Wheelchair-manual(equipment is for his SO) Home Layout: Multi-level, Able to live on one level with bedroom/bathroom (ramp to enter) Bathroom: Tub/Shower: Walk-in shower Bathroom: Toilet: Standard Home Living Comments: Reports he helping his SO with transfers sometimes. Prior Level of Function Receives Help From: No assist required prior to admission Level of Mobility: Ambulatory- community Mobility Castro: Independent gait without device History of Falls: Yes (1 fall, dog tripped him) ADL Performance: Independent Patient/Family Goals To feel better and go home Objective Pain Pt reported 10 surgical pain. RN provided pain medication prior to mobility. Pt positioned for comfort. Delirium Screening RASS: Alert and calm Confusion Assessment Method-ICU (CAM-ICU/PCAM-ICU) Feature 3: Altered Level of Consciousness: Negative Cognition Overall Cognitive Status: Within Functional Limits Arousal/Alertness: Appropriate responses to stimuli Mood/Behavior: Alert Orientation Level: Oriented X4 Single Step Commands: Consistently Multi-Step Commands: Consistently Method of Communication: Verbal Right Upper Extremity Examination RUE Assessment: Within Functional Limits Manual Muscle Testing - RUE: (unable to formally assess due to thoracotomy precautions) Sensation Light Touch: Right Upper Extremity: Intact Left Upper Extremity Examination LUE ROM Assessment LUE Assessment: Within Functional Limits Manual Muscle Testing - LUE Manual Muscle Testing - LUE: Within functional limits Sensation Light Touch: Left Upper Extremity: Intact Right Lower Extremity Examination RLE ROM Assessment RLE Assessment: Within Functional Limits Manual Muscle Testing - RLE Manual Muscle Testing - RLE: Within functional limits Sensation Light Touch: Right Lower Extremity: Intact Left Lower Extremity Examination LLE Assessment: Within Functional Limits Manual Muscle Testing: Within functional limits Sensation Light Touch: Left Lower Extremity: Intact Transfers Transfer Exam: Sit to stand Level of Castro: Contact guard Physical/Nonphysical Assist: Verbal Cues, Moderate cues, 1 person + 1 person to manage equipment Transfer Exam: Stand to Sit Level of Castro: Contact guard Physical/Nonphysical Assist: Verbal Cues, Moderate cues, 1 person + 1 person to manage equipment Pt educated on sternal precautions prior to mobility. Verbal cues provided for hand placement and improved body mechanics to maintain precautions and improve efficiency with sit to stand transfers. Balance Postural Appearance Posture: Rounded shoulders Static Sitting Balance Static Sitting-Balance Support: Feet supported Static Sitting-Level of Assistance: Standby assist Static Standing Balance Static Standing-Balance Support: Right upper extremity support, Left upper extremity support Static Standing-Level of Assistance: Contact guard Dynamic Standing Balance Dynamic Standing-Balance Support: Left upper extremity support, Right upper extremity support Dynamic Standing Level of Assistance: Contact guard Gait Training (10 minutes) Device: Rollator Apparatus: Chair follow Assistance: Contact guard assist, Moderate verbal cues, Additional assist for line management Distance: 30' Gait Analysis: Mild forward flexed posture, elevated scapula from guarding, decresed step length, narrow KAMI, frequent standing breaks due to pain and difficulty breathing Gait Training Interventions: Verbal cues provided for upright relaxed posture, wider KAMI, increasedstep length, pacing, and AD management. Standardized Assessments Standardized Assessments Standardized Assessments: [facility] 6-Clicks Mobility Assessment [facility] 6-Clicks Mobility Assessment Difficulty patient has turning over in bed (including adjusting bedclothes, sheets, and blankets)?:A little Difficulty patient has sitting down on and standing up from a chair with arms (wheelchair, bedside commode, etc.)?: A little Difficulty patient has moving from lying on back to sitting on the side of the bed?: A lot How much help does the patient need moving to and from a bed to a chair (including a wheelchair)?: A little How much help does the patient need to walk in hospital room?: A little How much help does the patient need climbing 3-5 steps with a railing?: A lot [facility] 6-Clicks Mobility Assessment Total : 16 No data recorded Assessment In addition to PT initial assessment, pt participated in gait training. Pt tolerated PT interventions with no adverse effects and maintained vital signs WNL. Pt primarily limited by post surgical pain limiting patients overall activity tolerance. Pt presents with impairments listed below and would benefit from continued skilled PT intervention to progress functional mobility and return to prior level of function. Discharge recs are home with assist pending further functional progress. Impairments: Decreased endurance, ventilation, and/or gas exchange, Impaired gait dynamics/performance, Impaired functional mobility/transfers, Decreased strength, Impaired balance, Impaired postural/trunk control, Pain Activity Limitations: Inability to ambulate independently, Inability to transfer independently, Inability to ambulate community distances, Inability to ambulate household distances, Inability to complete ADLs independently Participation Restrictions: Self-care, Home management, Community leisure Activity Tolerance: Tolerates 10 - 20 min activity with multiple rests Evaluation/Treatment Tolerance: Patient limited by pain Diagnosis: impaired functional mobility and activity tolerance Rehab Potential: Good, to achieve stated therapy goals Eval Complexity History Profile: 1 - 2 personal factors and/or comorbidities Clinical Presentation: Evolving clinical presentation with changing characteristics Clinical Decision Making: Moderate complexity PT Recommendations Discharge Destination: Home with assistance, Pending progress Discharge Equipment: Rollator Plan Planned PT Interventions Balance training, Bed mobility training, Gait training, Transfer training, Postural re-education, ROM, Strengthening, Functional Mobility PT Frequency 2 - 5 times per week PT Duration 2 weeks Goals PT GOAL DETAILS Time Frame PT Goal 1: Pt will perform supine <> sit SBA x1 while maintianing precautions 2 weeks PT Goal 2: Pt will perform sit to stand and bed to chair transfers SBA x1 with LRAD 2 weeks PT Goal 3: Pt will ambulate 600' SBA x1 with LRAD and no losses of balance or rest breaks 2 weeks PT Goal 4: Pt will be IND with HEP and d/c recs 2 weeks Written by Merlyn Cisneros on 06/26/25 at 11:37 AM. * Progress Notes - Juliana Vega - 06/26/2025 8:57 AM EDT OCCUPATIONAL THERAPY EVALUATION PATIENT DATA Patient Name Jake Pacheco Session Date 06/26/2025 OT Discharge Recommendations Home with assistance, Pending progress Equipment Recommendations Rollator HISTORY Jake Pacheco is 75 y.o. male admitted 06/25/2025 for work-up of Mitral valve insufficiency. Hospital Course 1. Mitral valve disease 2. Mitral valve insufficiency, unspecified etiology Procedures (if applicable) 06/25/2025 Procedure(s): REPAIR OR REPLACEMENT, MITRAL VALVE VIA THORACOTOMY Past Medical History Patient has a past medical history of Hypertension and Osteoarthritis. Past Surgical History Patient has a past surgical history that includes Appendectomy; Total hip arthroplasty; Hip Arthroplasty (Left, 12/08/2021); and Cardiac catheterization (04/09/2025). PRECAUTIONS Medical Precautions Medical Precautions: Post-Surgical precautions, Fall precautions Post-Surgical Precautions: R thoracotomy SUBJECTIVE PARTICIPANTS IN CARE Patient/Caregiver Comments I hurt Visitors Present No PRESENTATION Oxygen None (Room air) Nasal cannula 3 L/min Telemetry Yes Lines and Tubes CVC Triple Lumen 06/25/25 Right Internal jugular (Active) Chest Tube 1 Right Midaxillary 24 Fr (Active) Chest Tube 2 Right Pleural 28 Fr (Active) Urethral Catheter Single lumen;Temperature probe;Non-latex 16 Fr. (Active) Peripheral IV 06/25/25 Left;Posterior Hand (Active) Pre-Session Sitting in chair, Lines intact RN agreeable RN reports increased pain and patient beingin and out of a-fib this AM. Post-Session Sitting in chair, Lines intact, RN notified, Call light in reach All needs met. RN present and ok without chair alarm Patient positioned for comfort and pressure relief. All needs met upon close of session. HOME LIVING/SET-UP Lives With Significant other Home Type House Home Equipment shower chair, Rolling walker, Rollator, Bedside commode, Wheelchair-manual (equipment is for his SO) Home Layout Multi-level, Able to live on one level with bedroom/bathroom (ramp to enter) Bathroom Layout Walk-in shower Bathroom: Toilet: Standard Additional Comments Reports he helping his SO with transfers sometimes. PRIOR LEVEL OF FUNCTION Receives help from No assist required prior to admission Level of Mobility Ambulatory- community Mobility Castro Independent gait without device History of Falls Yes (1 fall, dog tripped him) ADL Performance ADL Performance: Independent PATIENT/FAMILY GOALS To manage pain and return home. OBJECTIVE PAIN Patient reports 10/10 pain. Pain medications given by RN. DELIRIUM SCREENING RASS: Alert and calm Confusion Assessment Method-ICU (CAM-ICU/PCAM-ICU) Feature 3: Altered Level of Consciousness: Negative COGNITION Overall Cognitive Status Within Functional Limits Arousal/Alertness Appropriate responses to stimuli Mood/Behavior Alert Orientation x4 Command Following Single Step Commands: Consistently Multi-Step Commands: Consistently Method of Communication Verbal VISION Baseline Vision Intact Current Vision (if different) No changes from baseline RIGHT UPPER EXTREMITY EXAMINATION Range of Motion Within Functional Limits Manual Muscle Testing (unable to formally assess due to thoracotomy precautions) Light Touch Sensation Intact LEFT UPPER EXTREMITY EXAMINATION Range of Motion Within Functional Limits Manual Muscle Testing Within functional limits Light Touch Sensation Intact RIGHT LOWER EXTREMITY EXAMINATION Range of Motion Within Functional Limits Manual Muscle Testing Within functional limits Light Touch Sensation Intact LEFT LOWER EXTREMITY EXAMINATION Range of Motion Within Functional Limits Manual Muscle Testing Within functional limits Light Touch Sensation Intact SELF-CARE Treatment Minutes (if applicable) 27 Comments OT facilitated patient engagement in sequential task training emphasizing functional transitions required for increased performance in higher level BADLs/IADLs. Level of Castro Adaptive Equipment Utilized Interventions Feeding Setup, Supervision Grooming Setup, Minimum assistance Chair level anticipated through clinical observations, limited most by pain at this time. Upper Body Dressing Setup, Moderate assistance Chair level Limited by pain. Lower Body Dressing Pants Level of Assistance: Maximum assistance Sock Level of Assistance: Dependent Toileting Maximum assistance Bedside commode Toilet Transfer Min A anticipate through clinical observations. Health Management OT provided education on right thoracotomy precautions and importance of follow through in order to optimize healing as well as prevent further discomfort. Patient verbalizes understanding, however moderate verbal cues required for consistent follow through during tx session. Community Re-Entry Pt completed functional mobility task in preparation for safely navigating home environment to access bedroom, bathroom, kitchen, etc. for ADL tasks. Patient ambulates less than a home distance with rollator and chair follow. Patient requires multiple rest breaks due to increasedpain. HR monitored with max HR of 139 noted for brief moment. RN present and aware. BED MOBILITY Level of Castro Physical/Non- physical Assist Adaptive Equipment Utilized Comment Not formally assessed due to patient being received and left sitting up in chair. TRANSFERS Level of Castro Physical/Non- physical Assist Adaptive Equipment Utilized Sit to Stand Contact guard Verbal Cues, Moderate cues, 1 person + 1 person to manage equipment Stand to sit Contact guard Verbal Cues, Moderate cues, 1 person + 1 person to manage equipment FUNCTIONAL MOBILITY Level of Castro Distance Adaptive Equipment Utilized Functional Mobility Contact guard assist, Moderate verbal cues, Additional assist utilized for safety 30 feet with multiple standing rest breaks 2/2 pain. Rollator Chair follow BALANCE Postural Appearance Posture: Rounded shoulders Level of Castro Balance Support Interventions Static Sit Standby assist Feet supported Dynamic Sit Contact guard. Static Stand Contact guard Right upper extremity support, Left upper extremity support Dynamic Stand Contact guard Left upper extremity support, Right upper extremity support STANDARDIZED ASSESSMENTS [facility] 6-Click Daily Activities Help from Other: Don/Doff Regular Lower Body Clothings: A lot Help From Other: Bathing: A lot Help From Other: Toileting: A lot Help From Other: Don/Doff Upper Body Clothings: A lot Help From Other: Grooming: Little Help From Other: Eating Meals: Little [facility] 6 Click - Daily Activities Score: 14 ASSESSMENT OT FINDINGS Impaired ADL performance, Impaired IADL performance, Decreased endurance/ventilation/gas exchange, Impaired functional mobility Evaluation/ Treatment Tolerance (if identified) Patient limited by pain, Patient limited by fatigue Rehab Potential (if identified) Good, to achieve stated therapy goals Barriers to Discharge (if identified) Pain EVAL COMPLEXITY Occupational Profile Expanded review of medical/therapy records and additional review of physical, cognitive, or psychosocial history Performance Deficits Activities of daily living (ADLs), Instrumental activities of daily living (IADLs), Leisure, Habits, Routines, Roles Clinical Decision Making High Overall Eval Complexity Complex OT RECOMMENDATIONS Discharge Destination Home with assistance, Pending progress Discharge Equipment Rollator PLAN Planned OT Interventions ADL retraining, IADL retraining, Bed mobility Training, Transfer training, Strengthening, Functional mobility, Caregiver education OT Frequency 2 - 5 times per week OT Duration 2 weeks OT GOALS OT GOAL DETAILS Time Frame OT Goal 1: Patient will be modified independent with total body dressing. 2 weeks OT Goal 2: Patient will stand at sink to complete 2 sequential grooming ADLs with Modified Castro. 2 weeks OT Goal 3: Patient will complete total toileting task at bathroom level with Modified Castro. 2 weeks OT Goal 4: Patient to complete environmental navigation task simulating home and community based self care tasks, acheiving up to 500 feet with modified independence. 2 weeks Written by Juliana Vega on 06/26/25 at 3:07 PM. * Care Plan - Gerry Almeida - 06/26/2025 3:55 AM EDT Problem: Mechanical Ventilation Invasive Goal: Effective Communication Outcome: Adequate for Care Transition Goal: Optimal Device Function 06/26/2025 0354 by Gerry Almeida Outcome: Adequate for Care Transition 06/26/2025 0030 by Gerry Almeida Outcome: Ongoing, Progressing Goal: Mechanical Ventilation Liberation Outcome: Adequate for Care Transition Goal: Optimal Nutrition Delivery Outcome: Adequate for Care Transition Goal: Absence of Device-Related Skin and Tissue Injury Outcome: Adequate for Care Transition Goal: Absence of Ventilator-Induced Lung Injury Outcome: Adequate for Care Transition * Care Plan - Gerry Almeida - 06/26/2025 12:30 AM EDT Problem: Mechanical Ventilation Invasive Goal: Optimal Device Function Outcome: Ongoing, Progressing * Care Plan - Betito Gold RN - 06/25/2025 5:36 PM EDT Problem: Adult Inpatient Plan of Care Goal: Plan of Care Review Outcome: Ongoing, Progressing Flowsheets (Taken 06/25/2025 1734) Plan of Care Reviewed With: patient family Goal: Patient-Specific Goal (Individualized) Outcome: Ongoing, Progressing Goal: Absence of Hospital-Acquired Illness or Injury Outcome: Ongoing, Progressing Intervention: Identify and Manage Fall Risk Flowsheets (Taken 06/25/20251699) Safety Promotion/Fall Prevention: clutter-free environment maintained lighting adjusted room organization consistent safety round/check completed Intervention: Prevent Skin Injury Flowsheets (Taken 06/25/20251699) Body Position: right turned Skin Protection: incontinence pads utilized pulse oximeter probe site changed transparent dressing maintained Intervention: Prevent and Manage VTE (Venous Thromboembolism) Risk Flowsheets (Taken 06/25/20251699) VTE Prevention/Management: bilateral SCDs (sequential compression devices) on Intervention: Prevent Infection Flowsheets (Taken 06/25/20251699) Infection Prevention: environmental surveillance performed equipment surfaces disinfected hand hygiene promoted rest/sleep promoted single patient room provided Goal: Optimal Comfort and Wellbeing Outcome: Ongoing, Progressing Intervention: Monitor Pain and Promote Comfort Flowsheets (Taken 06/25/20251699) Pain Management Interventions: medication (see MAR) breathing exercises care clustered pillow support provided position adjusted quiet environment facilitated relaxation techniques promoted Intervention: Provide Person-Centered Care Flowsheets (Taken 06/25/20251699) Trust Relationship/Rapport: care explained choices provided emotional support provided questions answered empathic listening provided questions encouraged reassurance provided thoughts/feelings acknowledged Problem: Fall Injury Risk Goal: Absence of Fall and Fall-Related Injury Outcome: Ongoing, Progressing Intervention: Identify and Manage Contributors Flowsheets (Taken 06/25/20251699) Medication Review/Management: medications reviewed high-risk medications identified infusion titrated Intervention: Promote Injury-Free Environment Flowsheets (Taken 06/25/20251699) Safety Promotion/Fall Prevention: clutter-free environment maintained lighting adjusted room organization consistent safety round/check completed Problem: Mechanical Ventilation Invasive Goal: Effective Communication Outcome: Ongoing, Progressing Intervention: Ensure Effective Communication Flowsheets (Taken 06/25/20251699) Trust Relationship/Rapport: care explained choices provided emotional support provided questions answered empathic listening provided questions encouraged reassurance provided thoughts/feelings acknowledged Family/Support System Care: involvement promoted presence promoted support provided Communication Enhancement Strategies: one-step directions provided repetition utilized Goal: Optimal Device Function Outcome: Ongoing, Progressing Intervention: Optimize Device Care and Function Flowsheets (Taken 06/25/20251699) Airway/Ventilation Management: airway patency maintained calming measures promoted oxygen therapy provided positive pressure ventilation provided position adjusted pulmonary hygiene promoted Oral Care: teeth brushed tongue brushed Airway Safety Measures: mask valve resuscitator at bedside manual resuscitator/mask at bedside oxygen flowmeter at bedside suction at bedside Goal: Mechanical Ventilation Liberation Outcome: Ongoing, Progressing Intervention: Promote Extubation and Mechanical Ventilation Liberation Flowsheets (Taken 06/25/20251699) Environmental Support: calm environment promoted distractions minimized environmental consistency promoted Sleep/Rest Enhancement: awakenings minimized natural light exposure provided noise level reduced relaxation techniques promoted Medication Review/Management: medications reviewed high-risk medications identified infusion titrated Goal: Optimal Nutrition Delivery Outcome: Ongoing, Progressing Goal: Absence of Device-Related Skin and Tissue Injury Outcome: Ongoing, Progressing Intervention: Maintain Skin and Tissue Health Flowsheets (Taken 06/25/2025 1700) Device Skin Pressure Protection: adhesive use limited [id number] areas padded [id number] areas padded tubing/devices free from skin contact Goal: Absence of Ventilator-Induced Lung Injury Outcome: Ongoing, Progressing Intervention: Facilitate Lung-Protection Measures Flowsheets (Taken 06/25/2025 1700) Lung Protection Measures: lung compliance monitored Intervention: Prevent Ventilator-Associated Pneumonia Flowsheets (Taken 06/25/2025 1700) VAP Prevention Bundle: HOB elevation maintained oral care regularly provided readiness to extubate assessed sedation interruption performed spontaneous breathing trial performed stress ulcer prophylaxis provided vent circuit breaks minimized VTE prophylaxis provided VAP Prevention Measures: completed Oral Care: teeth brushed tongue brushed Head of Bed (HOB) Positioning: HOB at 30 degrees Problem: Infection Goal: Absence of Infection Signs and Symptoms Outcome: Ongoing, Progressing Intervention: Prevent or Manage Infection Flowsheets (Taken 06/25/2025 1700) Infection Management: aseptic technique maintained Fever Reduction/Comfort Measures: lightweight clothing lightweight bedding Isolation Precautions: precautions maintained protective * Assessment & Plan Note - Jarett Morales MD - 06/25/2025 3:40 PM EDTAssociated Problem(s): Mitral valve insufficiency (Resolved 06/29/2025) -Monitor per protocol. * Assessment & Plan Note - Jarett Morales MD - 06/25/2025 3:40 PM EDTAssociated Problem(s): Mitral valve disease (Resolved 06/25/2025) -Monitor per protocol. * Assessment & Plan Note - Jarett Morales MD - 06/25/2025 3:40 PM EDTAssociated Problem(s): Mitral valve insufficiency, unspecified etiology (Resolved 06/25/2025) -Monitor per protocol. * Assessment & Plan Note - Jarett Morales MD - 06/25/2025 3:40 PM EDTAssociated Problem(s): BMI 28.0-28.9,adult - Complicates all aspects of care * Assessment & Plan Note - Jarett Morales MD - 06/25/2025 3:40 PM EDTAssociated Problem(s): TIA (transient ischemic attack) - May 2024 - No residual deficits - No hemodynamically significant carotid stenosis 03/2025 - Plavix for secondary prevention, resume when appropriate - Resume ASA + Statin * Assessment & Plan Note - Jarett Morales MD - 06/25/2025 3:40 PM EDTAssociated Problem(s): COPD (chronic obstructive pulmonary disease) - Long-term cigarette smoking history - Not requiring home O2 - Bronchodilators PRN * Assessment & Plan Note - Jarett Morales MD - 06/25/2025 3:40 PM EDTAssociated Problem(s): HTN (hypertension) -Monitor per protocol. * Assessment & Plan Note - Jarett Morales MD - 06/25/2025 3:40 PM EDTAssociated Problem(s): Postoperative pain - MMPC * Assessment & Plan Note - Jarett Morales MD - 06/25/2025 3:40 PM EDTAssociated Problem(s): Gastroesophageal reflux disease -Monitor per protocol. * Assessment & Plan Note - Jarett Morales MD - 06/25/2025 3:40 PM EDTAssociated Problem(s): Nonrheumatic mitral valve regurgitation (Resolved 06/29/2025) -Monitor per protocol. * Assessment & Plan Note - Jarett Morales MD - 06/25/2025 3:40 PM EDTAssociated Problem(s): S/P MVR (mitral valve repair) {Include important operative details, and any barriers to discharge from the ICU daily (can use the[employer]).:[id number]}{TIP Tips will automatically disappear when the note is signed, there is no need to delete me! :[id number]}-Recover per protocol. -Barriers to discharge from ICU: * Assessment & Plan Note - Jarett Morales MD - 06/25/2025 3:40 PM EDTAssociated Problem(s): On mechanically assisted ventilation (CMS/HCC) (Resolved 06/29/2025) - Fast track appropriate - Reverse neuromuscular blockade - Wean vent as able * Assessment & Plan Note - Cristi Rivera MD - 06/25/2025 3:37 PM EDTAssociated Problem(s): On mechanically assisted ventilation (CMS/HCC) (Resolved 06/29/2025) -Monitor per protocol. * H&P - Jarett Morales MD - 06/25/2025 1:22 PM EDTAssociated Order(s): Critical Care Post-Procedure Diagnose(s): Mitral valve disease; S/P MVR (mitral valve repair) Critical Care Performed by: Jarett Morales MD Authorized by: Jarett Morales MD Critical care provider statement: Critical care time (minutes): 40 Critical care time was exclusive of: Separately billable procedures and treating other patients andteaching time Critical care was time spent personally by me on the following activities: Discussions with primaryprovider, evaluation of patient's response to treatment, examination of patient, obtaining history from patient or surrogate, ordering and performing treatments and interventions, ordering and reviewof laboratory studies, ordering and review of radiographic studies, review of old charts, ventilator management and development of treatment plan with patient or surrogate I assumed subsequent critical care for this patient from a provider in my division, on the same day: no Critical care statement: I saw and evaluated the patient with the resident/ fellow. I discussed thecase with the resident/ fellow and agree with the findings and plan as documented. 06/25/25 Jake Pacheco Consulted for critical care management by Cardiothoracic Surgery. HPI Jake Pacheco is a 75 yo male with PMHx of MR, nonobstructive CAD, TIA on plavix (2023), s/p L total hip arthoplasty, OA, HTN, HLD, GERD, and previous smoker who was being following outpatient for his severe symptomatic mitral regurgitation. He presents today for mitral valve repair vs replacement with bioprosthetic mitral valve via right mini thoracotomy with Dr. Gordon. The patient arrived to the CVICU after a minimally invasive mitral valve repair intubated and sedated on propofol. Airway was grade 1 with MAC 4 blade. The pt received 1000 mcg Fentanyl and 1 mg Versed. Intraoperatively, they received 487 mL of crystalloid, no albumin, 0 mL of cell saver and no additional blood products. Patient required nitroglycerin and clevidipine in the OR for HTN. Significant intra-op included: None. Total time on pump was 155 minutes. They have V wires and currently have the pacer set to a backup rate of 40. Postoperative VINOD showed normal LV and RV function, improved MR post repair. Upon arrival, the patient was on clevidipine. Last dose of paralytic was given at 08:13. New onset afib was noted upon chest closure. The patient was cardioverted x3 unsuccessfully. An amio bolus and gtt was initiated. PM: Weaning vent. Treating pain. Chest tube output 260 in the first 2-3 hours post-op. AM: Airway view (if available) was: grade I - full view of glottis Lines/Drains/Tubes: . Active . Name Placement date Placement time Site Days CVC Triple Lumen 06/25/25 Right Internal jugular 06/25/25 0735 Internal jugular less than 1 Peripheral IV 06/25/25 Left;Posterior Hand 06/25/25 0630 Hand less than 1 Chest Tube 1 Right Midaxillary 24 Fr 06/25/25 1125 Midaxillary less than 1 Chest Tube 2 Right Pleural 28 Fr 06/25/25 1128 Pleural less than 1 Urethral Catheter Single lumen;Temperature probe;Non-latex 16 Fr. 06/25/25 0730 -- less than 1 Arterial Line 06/25/25 Left Radial 06/25/25 0718 Radial less than 1 Pulmonary Artery Catheter 06/25/25 Internal jugular Right 06/25/25 0735 Internal jugular less than 1 Last antibiotic: Patient recently received an antibiotic (last 12 hours) Showing orders from other encounters Date/Time Action Medication Dose Rate 06/25/25 0711 Given Vancomycin HCl in NaCl (Vancocin) IVPB 1.25 g 06/25/25 0637 New Bag vancomycin in NS (Vancocin) IVPB 1,250 mg 1,250 mg 200 mL/hr Per the patient questionnaire: Patient answers are not available for this visit. Medical/Surgical/Social/Family History I have reviewed and updated the patient history. Home Medications: Home Medications[1] Allergies Patient has no known allergies. GCS: Shahana Coma Scale Score: 10 Review of Systems 14 point ROS reviewed and otherwise negative or unobtainable except as noted above or in HPI. Vital signs: Vitals: 06/25/25 1530 BP: Pulse: 86 Resp: 17 Temp: SpO2: 100% Intake/Output Summary (Last 24 hours) at 06/25/2025 1538 Last data filed at 06/25/2025 1500 Gross per 24 hour Intake 487.81 ml Output 2415 ml Net -1927.19 ml Physical Exam: Sedation was held for the purposes of examination. Physical Exam Vitals and nursing note reviewed. Constitutional: Comments: Intubated and sedated HENT: Mouth/Throat: Mouth: Mucous membranes are moist. Pharynx: Oropharynx is clear. Cardiovascular: Rate and Rhythm: Rhythm irregular. Pulses: Normal pulses. Comments: Small dressings in place on the right chest. Dressings clean dry and intact. Atrial fibrillation noted on monitor Two R sided chest tubes in place with bloody drainage Pulmonary: Comments: Mechanically ventilated Abdominal: General: There is no distension. Palpations: Abdomen is soft. Skin: General: Skin is warm and dry. Results Review I have reviewed the latest lab and imaging results. Assessment and Plan: This patient is critically ill. Assessment & Plan Mitral valve insufficiency -Monitor per protocol. Mitral valve disease (Resolved: 06/25/2025) -Monitor per protocol. Mitral valve insufficiency, unspecified etiology (Resolved: 06/25/2025) -Monitor per protocol. HTN (hypertension) -Monitor per protocol. COPD (chronic obstructive pulmonary disease) - Long-term cigarette smoking history - Not requiring home O2 - Bronchodilators PRN Gastroesophageal reflux disease -Monitor per protocol. Nonrheumatic mitral valve regurgitation -Monitor per protocol. TIA (transient ischemic attack) - May 2024 - No residual deficits - No hemodynamically significant carotid stenosis 03/2025 - Plavix for secondary prevention, resume when appropriate - Resume ASA + Statin BMI 28.0-28.9,adult - Complicates all aspects of care S/P MVR (mitral valve repair) -Recover per protocol. -Barriers to discharge from ICU: On mechanically assisted ventilation (CMS/[facility]) - Fast track appropriate - Reverse neuromuscular blockade - Wean vent as able Postoperative pain - MMPC Non-Hospital Problems Smoking High cholesterol Primary localized osteoarthritis of left hip S/P total left hip arthroplasty Nonrheumatic mitral (valve) insufficiency Primary osteoarthritis of left hip Overview Signed 11/07/2021 9:23 AM by Orlando Malloy MD Added automatically from request for surgery [id number] Encounter for preprocedural cardiovascular examination Heart failure Cristi Rivera MD [1] Medications Prior to Admission Medication Sig Dispense Refill acetaminophen (Tylenol) 500 MG tablet Take 2 tablets (1,000 mg total) by mouth every 8 (eight) hours if needed for mild pain. 100 tablet 1 aspirin 81 MG EC tablet Take 1 tablet by mouth daily. atorvastatin (Lipitor) 20 MG tablet Take 1 tablet by mouth daily. bisoprolol-hydroCHLOROthiazide (Ziac) 5-6.25 MG tablet 1 (one) time each day. losartan (Cozaar) 100 MG tablet Take 1 tablet by mouth every morning. omeprazole (PriLOSEC) [address] capsule Take 1 capsule (20 mg total) by mouth 1 (one) time each day.Do not crush or chew. Take for 4 weeks post-operatively. 30 capsule 0 tiZANidine (Zanaflex) 4 MG tablet 1 (one) time each day. traMADol (Ultram) 50 MG tablet Take 1 tablet (50 mg total) by mouth every 4 (four) hours if needed for severe pain. 60 tablet 0 clopidogrel (Plavix) 75 MG tablet Take 1 tablet by mouth every morning. meloxicam (Mobic) 15 MG tablet Take 1 tablet (15 mg total) by mouth 1 (one) time each day. 30 tablet 0 mupirocin (Bactroban) 2 % ointment Apply 1 Application topically 2 times a day. Apply to each nostril twice daily for 5 days before surgery. 15 g 0 * Op Note - Khushbu Gordon MD - 06/25/2025 8:23 AM EDT OPERATIVE NOTE: Date: 06/25/2025 Location: [place] OR Name: Jake Pacheco, : 1950, Pre-operative Diagnosis: Problem List[1] Post-operative Diagnosis: Problem List[2] Operation: Minimally invasive right thoracotomy, Mitral Valve Repair with radical reconstruction with 30mm Physioflex annuloplasty band Surgeon: * Khushbu Gordon - Primary * Samaria Taylor - Assisting Anesthesia: General ASA Class: IV Indication: Severe mitral regurgitation Brief History: 75 year old gentleman who was found to have severe mitral regurgitation. Risks benefits and alternatives discussed and patient consents to proceed to operating room. Findings: Prolapse P2 with P1-P2 cleft.Triangular resection P2, closure P1-P2 cleft VINOD showed no evidence of valvular or perivalvular leak and the mean gradient across the valve was 2mmHg Procedure Details: The patient was taken to the operating room placed operating table supine position, general anesthesia with trickle intubation the appropriate monitor lines were done by the anesthesiologist. A smallshoulder roll was placed behind the right shoulder then the patient was positioned with the right arm slightly away from the chest wall. The patient was prepped and draped in usual surgical fashion. A anterior lateral thoracotomy of around 8 cm was done in the 4th intercostal space lateral to the nipple and towards the anterior axillary line. The chest was entered and visualization of the pericardium was verified. Retraction suture was placed in the central tendon of the diaphragm and pulled outside the chest wall through a stab incision. Soft tissue retractor was placed in the thoracotomy incision and then a small rib retractor was placed on top of the soft tissue retractor. Then using ultrasound guidance we made an incision just below the level of the inguinal ligament on the right sideand we dissected our way down to the level of the femoral sheath and we dissected the anterior surface of the femoral artery and femoral vein. The patient received heparin, 5 0 Prolene pursestrings were placed in the femoral artery in the femoral vein. Then with VINDO guidance we placed a 19 Syrian arterial cannula and the femoral artery over a guidewire after serial dilation. Then with VINOD guidance and with verifying a wire in the SVC at all times we placed a 25 Syrian venous cannula with the tip in the SVC over a guidewire. Cardiopulmonary bypass was initiated and once full bypass was reach ventilation was stopped. We identified the phrenic nerve pedicle and we opened the pericardium around 3 cm anterior to this was carried down to the level of the IVC and up to the level of the SVC. Then the antegrade cardioplegia catheter was placed in the ascending aorta. The aorta was crossclamped using the signet clamped and the heart was arrested with antegrade [place] cardioplegia and thepatient was cooled down to 28 ??. The [place] cardioplegia was repeated at intervals. A left atriotomy was performed and and extended to the dome and then to the floor of the left atrium avoiding any extension to the level of the IVC. The pole of the left atrial lift system was entered through the anterior chest wall away from the internal mammary artery that was seen by thoracoscopy camera then the left atrial system was applied and exposure of the mitral valve was obtained. The mitral valve was examined, the findings are as mentioned in the finding section. Annulplasty sutures were placed. P2 resection and cleft closure wereperformed. Then the selected 30mm PHysioFlex band was brought to the field and prepared as per protocol. Then the sutures were placed through the sewing ring of the band the band was seated and the sutures were secured with CorKnot. Then the left atriotomy was closed using double layer running 3-0 Prolene. Then the patient was rewarmed cross clamp was removed and as his hemodynamics became good de-airingwas verified by transesophageal echo, and the patient was weaned off cardiopulmonary bypass. Heparin was reversed with protamine and the cannulas were removed. Two ventricular wires, 1 mediastinal drain, and right pleural drain were placed. Hemostasis was obtained and the closure was as per routine. Estimate Blood Loss: 300 mL Drains: mediastinal x 1, right pleural drain. Specimens: mitral valve leaflet Implants: 30mm PhysioFlex band Complications: None; patient tolerated the procedure well. Disposition: ICU - intubated and hemodynamically stable. Condition: stable [1] Patient Active Problem List Diagnosis Primary osteoarthritis of left hip Smoking HTN (hypertension) High cholesterol Gastroesophageal reflux disease Primary localized osteoarthritis of left hip S/P total left hip arthroplasty COPD (chronic obstructive pulmonary disease) Nonrheumatic mitral (valve) insufficiency TIA (transient ischemic attack) BMI 28.0-28.9,adult Nonrheumatic mitral valve regurgitation Encounter for preprocedural cardiovascular examination Heart failure Mitral valve insufficiency Mitral valve disease [2] Patient Active Problem List Diagnosis Primary osteoarthritis of left hip Smoking HTN (hypertension) High cholesterol Gastroesophageal reflux disease Primary localized osteoarthritis of left hip S/P total left hip arthroplasty COPD (chronic obstructive pulmonary disease) Nonrheumatic mitral (valve) insufficiency TIA (transient ischemic attack) BMI 28.0-28.9,adult Nonrheumatic mitral valve regurgitation Encounter for preprocedural cardiovascular examination Heart failure Mitral valve insufficiency Mitral valve disease * H&P - Jemal Obando MD - 06/25/2025 6:49 AM EDT History of present illness: Jake Pacheco is a 75 y.o. male presenting for mitral valve repair vs replacement with bioprosthetic mitral valve via right mini thoracotomy. 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 Additionally endorses hypertension and non home O2 dependent [place] PD having a long standing history of tobacco abuse having quit approximately 1 year ago. He has been followed in our clinic for severe symptomatic mitral regurgitation who underwent full cardiac workup to include a coronary angiogram which demonstrated nonobstructive coronary artery disease. His chronic comorbid conditions that impact our treatment planning include: None NYHA Classification: Class II: Mild symptoms with ordinary activity. Smoking Cessation: former smoker. Active Problems: Patient Active Problem List Diagnosis Date Noted Mitral valve disease 06/25/2025 BMI 28.0-28.9,adult 03/29/2025 COPD (chronic obstructive pulmonary disease) 03/11/2025 Nonrheumatic mitral (valve) insufficiency 03/11/2025 TIA (transient ischemic attack) 03/11/2025 S/P total left hip arthroplasty 12/26/2021 Primary localized osteoarthritis of left hip 12/08/2021 HTN (hypertension) 11/29/2021 High cholesterol 11/29/2021 Gastroesophageal reflux disease 11/29/2021 Smoking 11/07/2021 Mitral valve insufficiency 05/24/2025 Nonrheumatic mitral valve regurgitation 04/01/2025 Encounter for preprocedural cardiovascular examination 04/01/2025 Heart failure 04/01/2025 Primary osteoarthritis of left hip 11/07/2021 Medical History: Past Medical History Pertinent Negatives[1] Surgical History: Surgical History[2] Social History: Tobacco: Tobacco Use: Medium Risk (06/25/2025) Patient History Smoking Tobacco Use: Former Smokeless Tobacco Use: Never Passive Exposure: Not on file Alcohol: Alcohol Use: Unknown (05/28/2025) AUDIT-C Frequency of Alcohol Consumption: Not on file Average Number of Drinks: Patient does not drink Frequency of Binge Drinking: Not on file Illicit drug use: Social History Substance and Sexual Activity Drug Use Not Currently Types: Marijuana Comment: quit marijuana 1999. Family History: family history includes Cancer in [...] for mild pain. 12/09/21 Yes Ronnie Thomas aspirin 81 MG EC tablet Take 1 tablet by mouth daily. Yes Provider, Historical atorvastatin (Lipitor) 20 MG tablet Take 1 tablet by mouth daily. 01/28/25 Yes Provider, Historical bisoprolol-hydroCHLOROthiazide (Ziac) 5-6.25 MG tablet 1 (one) time each day. 12/19/21 Yes Provider,Historical losartan (Cozaar) 100 MG tablet Take 1 tablet by mouth every morning. 01/26/25 Yes Provider, Historical omeprazole (PriLOSEC) [address] capsule Take 1 capsule (20 mg total) by mouth 1 (one) time each day.Do not crush or chew. Take for 4 weeks post-operatively. 12/09/21 Yes Ronnie Thomas tiZANidine (Zanaflex) 4 MG tablet 1 (one) time each day. 12/11/21 Yes Provider, Historical traMADol (Ultram) 50 MG tablet Take 1 tablet (50 mg total) by mouth every 4 (four) hours if needed for severe pain. 12/09/21 Yes Ronnie Thomas clopidogrel (Plavix) 75 MG tablet Take 1 tablet by mouth every morning. Provider, Historical meloxicam (Mobic) 15 MG tablet Take 1 tablet (15 mg total) by mouth 1 (one) time each day. 12/09/21 Ronnie Thomas mupirocin (Bactroban) 2 % ointment Apply 1 Application topically 2 times a day. Apply to each nostril twice daily for 5 days before surgery. 05/24/25 Boston Stinson PA Physical exam: Visit Vitals BP (!) 151/84 (BP Location: Left arm, Patient Position: Lying) Pulse 52 Temp 36.6 ??C (97.9 ??F) (Oral) SpO2 97% Labs in last 18 hours: CBC WBC ?? Hb ?? Plt ?? Hct ?? ANC ?? INR ??, PTT ??, Anti-Xa ?? BMP Na ?? Cl ?? BUN ?? Glu ?? K ?? Co2 ?? Cr ?? Ca ?? iCa ?? Mg ??, Phos ?? Lactate ?? LFT AST ?? AlkPhos ?? T Prot ?? ALK ?? Bili ?? Alb ?? D.Bili ?? Results from last 7 days Lab Units 06/18/25 1127 HEMOGLOBIN A1C % 5.5 Impression: Jake Pacheco is a 75 y.o. male presenting for mitral valve repair vs replacement with bioprosthetic mitral valve via right mini thoracotomy. Plan: -consent obtained -prefers bioprosthetic valve -last dose plavix 06/20/25 -r-side marked -ok to proceed [1] Past Medical History: Diagnosis Date Hypertension Osteoarthritis [2] Past Surgical History: Procedure Laterality Date APPENDECTOMY CARDIAC CATHETERIZATION 04/09/2025 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 HIP ARTHROPLASTY Left 12/08/2021 Left DONELL. TOTAL HIP ARTHROPLASTY [3] No Known Allergies Cosigned by Khushbu Gordon MD at 06/28/2025 10:16 AM EST Associated attestation - Khushbu Gordon MD - 06/28/2025 10:16 AM EST I saw and evaluated the patient with the resident/fellow. I discussed the case with the resident/fellow and agree with the findings and plan as documented. documented in this encounter Plan of Treatment Upcoming Encounters Date Type Department Care Team (Late st Contact Info) Description 08/23/2025 9:30 AM EST Appointment Cardiac Imaging [address] [place] [address] 08/23/2025 12:00 PM EST Office Visit [facility] Cardi[facility] [address], [address] [place] [address] Khushbu Godron MD [address] [place] [address] 09/01/2025 2:30 PM EST Office Visit [facility] [address], [address] [place] [id number] Elsi Mas DO [address] [place] [address] Pending Results Name Type Priority Associated Diagnoses Date/Time Prepare Leukocyte Reduced RBC: 4 Units Blood Bank Routine 06/25/2025 6:04 AM EDT Transfuse fresh frozen plasma Transfusion Administration Routine 06/25/2025 6:54 PM EDT Scheduled Referrals Name Type Priority Associated Diagnoses Order Schedule Discharge Ambulatory referral to Cardiac Rehab Outpatient Referral Routine Mitral valve disease 1 Occurrences starting 06/25/2025 until 12/27/2026 Discharge Ambulatory referral to Cardiac Rehab Outpatient Referral Routine S/P MVR (mitral valve repair) 1 Occurrences starting 06/30/2025 until 06/30/2026 documented as of this encounter Goals Goal Patient Goal Type Associated Problems Recent Progress Patient-Stated? Author Autogenera herman Goal Care Plan Autogenerated Problem No Boston Stinson PA documented as of this encounter Procedures Procedure Name Priority Date/Time Associated Diagnosis Comments XR CHEST 1 VIEW Routine 06/29/2025 3:09 AM EST CBC W/O DIFFERENTIAL Routine 06/29/2025 2:59 AM EST MAGNESIUM, PLASMA Routine 06/29/2025 2:5 9 AM EST BASIC METABOLIC PANEL, PLASMA Routine 06/29/2025 2:59 AM EST BASIC METABOLIC PANEL, PLASMA Routine 06/28/2025 3:20 PM EST PEP THERAPY Routine 06/28/2025 10:00 AM EST OXYGEN THERAPY Routine 06/28/2025 8:00 AM EST PEP THERAPY Routine 06/28/2025 6:00 AM EST CBC W/O DIFFERENTIAL Routine 06/28/2025 3:02 AM EST MAGNESIUM, PLASMA Routine 06/28/2025 3:0 2 AM EST BASIC METABOLIC PANEL, PLASMA Routine 06/28/2025 3:02 AM EST XR CHEST 1 VIEW Routine 06/28/2025 1:13 AM EST PEP THERAPY Routine 06/27/2025 10:00 PM EST OXYGEN THERAPY Routine 06/27/2025 6:00 PM EST PEP THERAPY Routine 06/27/2025 6:00 PM EST POCT GLUCOSE METER UNSOLICITED RESULTS Routine 06/27/2025 2:30 PM EST PEP THERAPY Routine 06/27/2025 2:00 PM EST PEP THERAPY Routine 06/27/2025 10:00 AM EST OXYGEN THERAPY Routine 06/27/2025 8:00 AM EST PEP THERAPY Routine 06/27/2025 6:00 AM EST IONIZED CALCIUM, WHOLE BLOOD Routine 06/27/2025 4:20 AM EST MAGNESIUM, PLASMA Routine 06/27/2025 4:2 0 AM EST XR CHEST 1 VIEW Routine 06/27/2025 1:32 AM EDT POCT GLUCOSE METER UNSOLICITED RESULTS Routine 06/27/2025 12:01 AM EDT IONIZED CALCIUM, WHOLE BLOOD Routine 06/27/2025 12:00 AM EDT MAGNESIUM, PLASMA Routine 06/27/2025 12: 00 AM EDT RENAL FUNCTION PANEL, PLASMA Routine 06/27/2025 12:00 AM EDT PEP THERAPY Routine 06/26/2025 10:00 PM EDT OXYGEN THERAPY Routine 06/26/2025 6:00 PM EDT PEP THERAPY Routine 06/26/2025 6:00 PM EDT PEP THERAPY Routine 06/26/2025 2:00 PM EDT VT CRITICAL CARE, ADDL 30 MIN Routine 06/26/2025 1:24 PM EDT Mitral valve disease POCT GLUCOSE METER UNSOLICITED RESULTS Routine 06/26/2025 1:01 PM EDT PEP THERAPY Routine 06/26/2025 10:00 AM EDT OXYGEN THERAPY Routine 06/26/2025 8:00 AM EDT PEP THERAPY Routine 06/26/2025 6:00 AM EDT POCT GLUCOSE METER UNSOLICITED RESULTS Routine 06/26/2025 5:46 AM EDT POCT GLUCOSE METER UNSOLICITED RESULTS Routine 06/26/2025 5:44 AM EDT BLOOD GAS PANEL, ARTERIAL Routine 06/26/2025 4:06 AM EDT BLOOD GAS PANEL, ARTERIAL Pending Discharge 06/26/2025 3:04 AM EDT XR CHEST 1 VIEW Routine 06/26/2025 2:30 AM EDT ECG ADULT Routine 06/26/2025 1:59 AM EDT OXYGEN THERAPY Routine 06/26/2025 1:41 AM EDT OXYGEN THERAPY Routine 06/26/2025 1:41 AM EDT EXTUBATION Routine 06/26/2025 1:41 AM EDT HEMOGLOBIN Timed 06/26/2025 12:45 AM EDT HEMATOCRIT, BLOOD Timed 06/26/2025 12: 45 AM EDT POTASSIUM, PLASMA Timed 06/26/2025 12: 45 AM EDT BLOOD GAS PANEL, ARTERIAL Timed 06/26/2025 12:45 AM EDT PEP THERAPY Routine 06/25/2025 10:00 PM EDT POCT GLUCOSE METER UNSOLICITED RESULTS Routine 06/25/2025 8:04 PM EDT CBC W/O DIFFERENTIAL Timed 06/25/2025 7:58 PM EDT BASIC METABOLIC PANEL, PLASMA Timed 06/25/2025 7:58 PM EDT BLOOD GAS PANEL, ARTERIAL Timed 06/25/2025 7:57 PM EDT PREPARE FRESH FROZEN PLASMA Routine 06/25/2025 6:34 PM EDT PEP THERAPY Routine 06/25/2025 6:00 PM EDT VENTILATOR - ADULT Routine 06/25/2025 5: 46 PM EDT HEMOGLOBIN Timed 06/25/2025 5:15 PM EDT HEMATOCRIT, BLOOD Timed 06/25/2025 5:1 5 PM EDT POTASSIUM, PLASMA Timed 06/25/2025 5:1 5 PM EDT BLOOD GAS PANEL, ARTERIAL Timed 06/25/2025 5:14 PM EDT BLOOD GAS PANEL, ARTERIAL STAT 06/25/2025 3:47 PM EDT TEG GLOBAL HEMOSTASIS WITH HEPARINASE Routine 06/25/2025 3:46 PM EDT TEG GLOBAL HEMOSTASIS WITH LYSIS Routine 06/25/2025 3:46 PM EDT POCT GLUCOSE METER UNSOLICITED RESULTS Routine 06/25/2025 3:26 PM EDT XR CHEST 1 VIEW STAT 06/25/2025 2:16 PM EDT XR ABDOMEN 1 VIEW STAT 06/25/2025 2:1 6 PM EDT PEP THERAPY Routine 06/25/2025 2:00 PM EDT VT CRITICAL CARE, E/M 30-74 MINUTES Routine 06/25/2025 1:22 PM EDT Mitral valve disease S/P MVR (mitral valve repair) BLOOD GAS PANEL, MIXED VENOUS Routine 06/25/2025 1:22 PM EDT BLOOD GAS PANEL, ARTERIAL STAT 06/25/2025 1:22 PM EDT APTT STAT 06/25/2025 1:21 PM EDT PROTHROMBIN TIME(PT) / INR STAT 06/25/2025 1:21 PM EDT CBC W/O DIFFERENTIAL STAT 06/25/2025 1:21 PM EDT PHOSPHORUS, PLASMA STAT 06/25/2025 1: 21 PM EDT MAGNESIUM, PLASMA STAT 06/25/2025 1:2 1 PM EDT BASIC METABOLIC PANEL, PLASMA STAT 06/25/2025 1:21 PM EDT JESÚS AURIS SURVEILLANCE BY PCR Routine 06/25/2025 1:14 PM EDT MULTI DRUG RESISTANCE TEST Routine 06/25/2025 1:14 PM EDT END TIDAL CO2 MONITORING Routine 06/25/2025 1:01 PM EDT END TIDAL CO2 MONITORING Routine 06/25/2025 1:01 PM EDT VENTILATOR - ADULT Routine 06/25/2025 1: 01 PM EDT PEP THERAPY Routine 06/25/2025 12:59 PM EDT PEP THERAPY Routine 06/25/2025 12:59 PM EDT PEP THERAPY Routine 06/25/2025 12:59 PM EDT PEP THERAPY Routine 06/25/2025 12:59 PM EDT PEP THERAPY Routine 06/25/2025 12:59 PM EDT END TIDAL CO2 MONITORING Routine 06/25/2025 12:59 PM EDT END TIDAL CO2 MONITORING Routine 06/25/2025 12:59 PM EDT ECG ADULT STAT 06/25/2025 12:54 PM EDT QPLUS Routine 06/25/2025 11:56 AM EDT POCT ARTERIAL BLOOD GAS GEM UNSOLICITED RESULTS Routine 06/25/2025 11:49 AM EDT POCT ACT UNSOLICITED RESULTS Routine 06/25/2025 11:40 AM EDT POCT ARTERIAL BLOOD GAS GEM UNSOLICITED RESULTS Routine 06/25/2025 11:02 AM EDT POCT ACT UNSOLICITED RESULTS Routine 06/25/2025 10:57 AM EDT POCT ARTERIAL BLOOD GAS GEM UNSOLICITED RESULTS Routine 06/25/2025 10:33 AM EDT POCT ACT UNSOLICITED RESULTS Routine 06/25/2025 10:27 AM EDT POCT ARTERIAL BLOOD GAS GEM UNSOLICITED RESULTS Routine 06/25/2025 10:03 AM EDT POCT ACT UNSOLICITED RESULTS Routine 06/25/2025 9:55 AM EDT SURGICAL PATHOLOGY EXAM Routine 06/25/2025 9:50 AM EDT Mitral valve insufficiency, unspecified etiology POCT ARTERIAL BLOOD GAS GEM UNSOLICITED RESULTS Routine 06/25/2025 9:33 AM EDT POCT ACT UNSOLICITED RESULTS Routine 06/25/2025 9:26 AM EDT POCT ARTERIAL BLOOD GAS GEM UNSOLICITED RESULTS Routine 06/25/2025 9:07 AM EDT POCT ACT UNSOLICITED RESULTS Routine 06/25/2025 9:02 AM EDT POCT ARTERIAL BLOOD GAS GEM UNSOLICITED RESULTS Routine 06/25/2025 8:47 AM EDT POCT ACT UNSOLICITED RESULTS Routine 06/25/2025 8:41 AM EDT POCT ARTERIAL BLOOD GAS GEM UNSOLICITED RESULTS Routine 06/25/2025 7:53 AM EDT POCT ACT UNSOLICITED RESULTS Routine 06/25/2025 7:47 AM EDT VT REPLACEMENT OF MITRAL VALVE 06/25/2025 6:49 AM EDT Mitral valve insufficiency, unspecified etiology POCT GLUCOSE METER UNSOLICITED RESULTS Routine 06/25/2025 6:37 AM EDT TYPE AND SCREEN Routine 06/25/2025 6:36 AM EDT PREPARE RBC Routine 06/25/2025 6:04 AM EDT documented in this encounter Results * XR Chest 1 View (06/29/2025 3:09 AM EST) Anatomical Region Laterality Modality Chest Digital Radiogra phy Impressions 06/29/2025 9:55 AM EST Stable trace right apical pneumothorax. CRITICAL RESULT: No. COMMUNICATION: Per this written report. By electronically signing this report, I, the attending physician, attest that I have personally reviewed the images/data for the above examination(s) and agree with the final edited report. Drafted by Zuhair Cooley MD on 06/29/2025 8:49 AM Final report signed by Michel Dior MD on 06/29/2025 9:55 AM Narrative 06/29/2025 9:55 AM EST CLINICAL INDICATION: eval lung glover TECHNIQUE: XR CHEST 1 VIEW COMPARISON: Chest radiograph one day prior FINDINGS: Stable trace right apical pneumothorax. Linear atelectasis in the right midlung is stable. Cardiomediastinal silhouette is stable. No pleural effusion. Procedure Note Michel Dior MD - 06/29/2025 CLINICAL INDICATION: eval lung glover TECHNIQUE: XR CHEST 1 VIEW COMPARISON: Chest radiograph one day prior FINDINGS: Stable trace right apical pneumothorax. Linear atelectasis in the rightmidlung is stable. Cardiomediastinal silhouette is stable. No pleuraleffusion. IMPRESSION: Stable trace right apical pneumothorax. CRITICAL RESULT: No. COMMUNICATION: Per this written report. By electronically signing this report, I, the attending physician, attestthat I have personally reviewed the images/data for the aboveexamination(s) and agree with the final edited report. Drafted by Zuhair Cooley MD on 06/29/2025 8:49 AM Final report signed by Michel Dior MD on 06/29/2025 9:55 AM us Sulma Martel DRY CE[employer] ASSEMBL[employer] SUPERVISOR IMG XR PROCEDURES Final Resu lt * Magnesium (06/29/2025 2:59 AM EST) Magnesium, Plasma 2.1 1.9 - 2.4 mg/dL 06/29/2025 3:32 AM EST [facility] Blood Venous blood specimen / Unknown Venipuncture / Unknown 06/29/2025 2:59 AM EST 06/29/2025 3:03 AM EST us Khushbu Gordon MD LAB BLOOD ORDERABLES Final Res ult [facility] [address] [place] [address] * (ABNORMAL) Basic metabolic panel (06/29/2025 2:59 AM EST) Glucose, Plasma 105(H) 74 - 99 mg/dL 06/29/2025 3:32 AM EST [facility] BUN, Plasma 21 8 - 23 mg/dL 06/29/2025 3:32 AM EST [facility] Creatinine, Plasma 0.82 0.70 - 1.20 mg/dL 06/29/2025 3:32 AM EST [facility] BUN/Creatinine Ratio 26 06/29/2025 3:32 AM EST [facility] Sodium, Plasma 141 136 - 145 mmol/L 06/29/2025 3:32 AM EST [facility] Potassium, Plasma 3.7 3.6 - 4.9 mmol/L 06/29/2025 3:32 AM EST [facility] Chloride, Plasma 105 97 - 107 mmol/L 06/29/2025 3:32 AM EST [facility] CO2, Plasma 28 22 - 29 mmol/L 06/29/2025 3:32 AM EST [facility] Anion Gap 8 6 - 16 mmol/L 06/29/2025 3:32 AM EST [facility] Total Calcium, Plasma 7.8(L) 8.9 - 10.2 mg/dL 06/29/2025 3:32 AM EST [facility] eGFRcr 92.8 mL/min/1.7 3m*2 06/29/2025 3:32 AM EST [facility] Comment:Reported eGFRcr in m L/min/1.73m2 is based the CKD-EPI 2020 equation that does not use a race coefficient. Blood Venous blood specimen / Unknown Venipuncture / Unknown 06/29/2025 2:59 AM EST 06/29/2025 3:03 AM EST us Khushbu Gordon MD LAB BLOOD ORDERABLES Final Res ult [facility] [address] [place] [address] * (ABNORMAL) CBC W/O Differential (06/29/2025 2:59 AM EST) WBC Count 9.27 3.70 - 10.30 10*3/uL LAB HEMATOLOGY METHOD 06/29/2025 3:13 AM EST [facility] RBC Count 2.69(L) 4.60 - 6.10 10*6/uL LAB HEMATOLOGY METHOD 06/29/2025 3:13 AM EST [facility] HGB 7.9(L) 13.7 - 17.5 g/dL LAB HEMATOLOGY METHOD 06/29/2025 3:13 AM EST [facility] HCT 24.3(L) 40.0 - 51.0 % LAB HEMATOLOGY METHOD 06/29/2025 3:13 AM EST [facility] Platelet Count 150(L) 155 - 369 10*3/uL LAB HEMATOLOGY METHOD 06/29/2025 3:13 AM EST [facility] MCV 90 79 - 98 fL LAB HEMATOLOGY METHOD 06/29/2025 3:13 AM EST [facility] MCH 29.4 26.0 - 32.0 pg LAB HEMATOLOGY METHOD 06/29/2025 3:13 AM EST [facility] MCHC 32.5 30.7 - 35.5 g/dL LAB HEMATOLOGY METHOD 06/29/2025 3:13 AM EST [facility] RDW 14.0 11.5 - 14.5 % LAB HEMATOLOGY METHOD 06/29/2025 3:13 AM EST [facility] MPV 11.1 8.8 - 12.5 fL LAB HEMATOLOGY METHOD 06/29/2025 3:13 AM EST [facility] nRBC 0.0 <=0.0 per 100 WBCs LAB HEMATOLOGY METHOD 06/29/2025 3:13 AM EST [facility] Blood Venous blood specimen / Unknown Venipuncture / Unknown 06/29/2025 2:59 AM EST 06/29/2025 3:03 AM EST us Khushbu Gordon MD LAB BLOOD ORDERABLES Final Res ult [facility] [address] [place] [address] * (ABNORMAL) Basic metabolic panel (06/28/2025 3:20 PM EST) Glucose, Plasma 99 74 - 99 mg/dL 06/28/2025 4:12 PM EST [facility] BUN, Plasma 24(H) 8 - 23 mg/dL 06/28/2025 4:12 PM EST [facility] Creatinine, Plasma 0.81 0.70 - 1.20 mg/dL 06/28/2025 4:12 PM EST [facility] BUN/Creatinine Ratio 30 06/28/2025 4:12 PM EST [facility] Sodium, Plasma 138 136 - 145 mmol/L 06/28/2025 4:12 PM EST [facility] Potassium, Plasma 4.1 3.6 - 4.9 mmol/L 06/28/2025 4:12 PM EST [facility] Comment:Hemolyzed - Potassiu m may be falsely elevated by approximately 0.4-0.7 mmol/L. Chloride, Plasma 101 97 - 107 mmol/L 06/28/2025 4:12 PM EST [facility] CO2, Plasma 24 22 - 29 mmol/L 06/28/2025 4:12 PM EST [facility] Anion Gap 13 6 - 16 mmol/L 06/28/2025 4:12 PM EST [facility] Total Calcium, Plasma 7.9(L) 8.9 - 10.2 mg/dL 06/28/2025 4:12 PM EST [facility] eGFRcr 93.1 mL/min/1.7 3m*2 06/28/2025 4:12 PM EST [facility] Comment:Reported eGFRcr in m L/min/1.73m2 is based the CKD-EPI 2020 equation that does not use a race coefficient. Blood Venous blood specimen / Unknown Venipuncture / Unknown 06/28/2025 3:20 PM EST 06/28/2025 3:41 PM EST us Zheng Maciel [employer] SUPERVISOR LAB BLOOD ORDERABLES Final R esult Performing Organization Address City/[facility]/ZIP Co de Phone Number [facility] [address] [place] [address] * Magnesium (06/28/2025 3:02 AM EST) Magnesium, Plasma 2.1 1.9 - 2.4 mg/dL 06/28/2025 3:38 AM EST [facility] Blood Venous blood specimen / Unknown Venipuncture / Unknown 06/28/2025 3:02 AM EST 06/28/2025 3:10 AM EST us Khushbu Gordon MD LAB BLOOD ORDERABLES Final Res ult Performing Organization Address City/[facility]/ZIP Co de Phone Number [facility] [address] [place] [address] * (ABNORMAL) Basic metabolic panel (06/28/2025 3:02 AM EST) Glucose, Plasma 102(H) 74 - 99 mg/dL 06/28/2025 3:39 AM EST [facility] BUN, Plasma 21 8 - 23 mg/dL 06/28/2025 3:39 AM EST [facility] Creatinine, Plasma 0.64(L) 0.70 - 1.20 mg/dL 06/28/2025 3:39 AM EST [facility] BUN/Creatinine Ratio 33 06/28/2025 3:39 AM EST [facility] Sodium, Plasma 134(L) 136 - 145 mmol/L 06/28/2025 3:39 AM EST [facility] Potassium, Plasma 06/28/2025 3:39 AM EST [facility] Comment:Hemolyzed Chloride, Plasma 102 97 - 107 mmol/L 06/28/2025 3:39 AM EST [facility] CO2, Plasma 26 22 - 29 mmol/L 06/28/2025 3:39 AM EST [facility] Anion Gap 6 6 - 16 mmol/L 06/28/2025 3:39 AM EST [facility] Total Calcium, Plasma 7.7(L) 8.9 - 10.2 mg/dL 06/28/2025 3:39 AM EST [facility] eGFRcr 100.0 mL/min/1.7 3m*2 06/28/2025 3:39 AM EST [facility] Comment:Reported eGFRcr in m L/min/1.73m2 is based the CKD-EPI 2020 equation that does not use a race coefficient. Blood Venous blood specimen / Unknown Venipuncture / Unknown 06/28/2025 3:02 AM EST 06/28/2025 3:10 AM EST us Khushbu Gordon MD LAB BLOOD ORDERABLES Final Res ult [facility] [address] [place] [address] * (ABNORMAL) CBC W/O Differential (06/28/2025 3:02 AM EST) WBC Count 11.22(H) 3.70 - 10.30 10*3/uL LAB HEMATOLOGY METHOD 06/28/2025 3:47 AM EST [facility] RBC Count 2.86(L) 4.60 - 6.10 10*6/uL LAB HEMATOLOGY METHOD 06/28/2025 3:47 AM EST [facility] HGB 8.3(L) 13.7 - 17.5 g/dL LAB HEMATOLOGY METHOD 06/28/2025 3:47 AM EST [facility] HCT 26.0(L) 40.0 - 51.0 % LAB HEMATOLOGY METHOD 06/28/2025 3:47 AM EST [facility] Platelet Count 89(L) 155 - 369 10*3/uL LAB HEMATOLOGY METHOD 06/28/2025 3:47 AM EST [facility] MCV 91 79 - 98 fL LAB HEMATOLOGY METHOD 06/28/2025 3:47 AM EST [facility] MCH 29.0 26.0 - 32.0 pg LAB HEMATOLOGY METHOD 06/28/2025 3:47 AM EST [facility] MCHC 31.9 30.7 - 35.5 g/dL LAB HEMATOLOGY METHOD 06/28/2025 3:47 AM EST [facility] RDW 14.5 11.5 - 14.5 % LAB HEMATOLOGY METHOD 06/28/2025 3:47 AM EST [facility] MPV 11.5 8.8 - 12.5 fL LAB HEMATOLOGY METHOD 06/28/2025 3:47 AM EST [facility] nRBC 0.0 <=0.0 per 100 WBCs LAB HEMATOLOGY METHOD 06/28/2025 3:47 AM EST [facility] Blood Venous blood specimen / Unknown Venipuncture / Unknown 06/28/2025 3:02 AM EST 06/28/2025 3:10 AM EST us Khushbu Gordon MD LAB BLOOD ORDERABLES Final Res ult Performing Organization Address City/State/[facility] Co de Phone Number [facility] [address] [place] [address] * XR Chest 1 View (06/28/2025 1:13 AM EST) Anatomical Region Laterality Modality Chest Digital Radiogra phy Impressions 06/28/2025 9:12 AM EST Interval removal of right IJ catheter and right chest tube with stable trace right apical pneumothorax. CRITICAL RESULT: No. COMMUNICATION: Per this written report. By electronically signing this report, I, the attending physician, attest that I have personally reviewed the images/data for the above examination(s) and agree with the final edited report. Drafted by Boston Ndiaye III, MD on 06/28/2025 8:33 AM Final report signed by Lewis Murphy MD on 06/28/2025 9:12 AM Narrative 06/28/2025 9:12 AM EST CLINICAL INDICATION: eval lung glover TECHNIQUE: XR CHEST 1 VIEW COMPARISON: Chest radiographs dated 06/27/2025 and 06/26/2025 FINDINGS: Interval removal of right IJ catheter and right chest tube. Stable right midlung atelectasis. No new focal consolidation. No large pleural effusions. Stable trace right apical pneumothorax. Procedure Note Lewis Murphy MD - 06/28/2025 CLINICAL INDICATION: eval lung glover TECHNIQUE: XR CHEST 1 VIEW COMPARISON: Chest radiographs dated 06/27/2025 and 06/26/2025 FINDINGS: Interval removal of right IJ catheter and right chest tube. Stable rightmidlung atelectasis. No new focal consolidation. No large pleuraleffusions. Stable trace right apical pneumothorax. IMPRESSION: Interval removal of right IJ catheter and right chest tube with stabletrace right apical pneumothorax. CRITICAL RESULT: No. COMMUNICATION: Per this written report. By electronically signing this report, I, the attending physician, attestthat I have personally reviewed the images/data for the aboveexamination(s) and agree with the final edited report. Drafted by Boston Ndiaye III, MD on 06/28/2025 8:33 AM Final report signed by Lewis Murphy MD on 06/28/2025 9:12 AM us Zheng Maciel [employer] IMG XR PROCEDURES Final Resu lt * (ABNORMAL) POCT glucose meter (06/27/2025 2:30 PM EST) POCT Glucose 117(H) 74 - 99 mg/dL 06/27/2025 2:31 PM EST [facility] Comment:Accuracy of a glucos e result obtained from a capillary whole blood specimen relies upon adequate, non-compromised capillary blood flow. If the capillary glucose result is not consistent with the patient's clinical signs and symptoms, glucose testing should be repeated with either an arterial or venous sample on the glucometer or sent to the main labortory for testing. Comment 06/27/2025 2:31 PM EST [facility] Ship Carpenter ID Betito Gold 06/27/2025 2:31 PM EST [facility] Device ID [id number] 06/27/2025 2:31 PM EST [facility] Specimen Type POC Capillary 06/27/2025 2:31 PM EST [facility] Blood Capillary blood specimen / Unknown 06/27/2025 2:30 PM EST 06/27/2025 2:31 PM EST us Khushbu Willis Evan MD LAB POINT OF CARE TE ST DOCKED DEVICE UNSOLICITED RESULTS Final Result Performing Organization Address City/[facility] Co de Phone Number [facility] [address] [place] [address] * (ABNORMAL) Ionized calcium, whole blood (06/27/2025 4:20 AM EST) Ionized Calcium, Whole Blood 4.2(L) 4.6 - 5.1 mg/dL LAB HEMATOLOGY METHOD 06/27/2025 4:25 AM EST [facility] Blood Venous blood specimen / Unknown Venipuncture / Unknown 06/27/2025 4:20 AM EST 06/27/2025 4:24 AM EST us Khushbu Gordon MD LAB BLOOD ORDERABLES Final Res ult Performing Organization Address [facility] de Phone Number [facility] [address] [place] [address] * (ABNORMAL) Magnesium (06/27/2025 4:20 AM EST) Magnesium, Plasma 2.6(H) 1.9 - 2.4 mg/dL 06/27/2025 4:49 AM EST [facility] Blood Venous blood specimen / Unknown Venipuncture / Unknown 06/27/2025 4:20 AM EST 06/27/2025 4:25 AM EST us Khushbu Gordon MD LAB BLOOD ORDERABLES Final Res ult Performing Organization Address City/[facility] Co de Phone Number [facility] [address] [place] [address] * XR Chest 1 View (06/27/2025 1:32 AM EDT) Anatomical Region Laterality Modality Chest Digital Radiogra phy Impressions 06/27/2025 9:27 AM EST Interval extubation and removal of the Cameron-Liliane catheter. Otherwise no significant interval change. CRITICAL RESULT: No. COMMUNICATION: Per this written report. Drafted by Blanco Santillan MD on 06/27/2025 9:25 AM Final report signed by Blanco Santillan MD on 06/27/2025 9:27 AM Narrative 06/27/2025 9:27 AM EST CLINICAL INDICATION: Post-Op Cardiac Surgery TECHNIQUE: Single AP view of chest. COMPARISON: One day prior FINDINGS: Interval extubation and removal of the Cameron-Liliane catheter. Chest tubes remain in place. The cardiomediastinal contours unchanged. No sizable pneumothorax. Trace right pleural effusion similar to prior. Right basal atelectatic changes. No new lung consolidation. Procedure Note Blanco Santillan MD - 06/27/2025 CLINICAL INDICATION: Post-Op Cardiac Surgery TECHNIQUE: Single AP view of chest. COMPARISON: One day prior FINDINGS: Interval extubation and removal of the Cameron-Liliane catheter. Chest tubesremain in place. The cardiomediastinal contours unchanged. No sizablepneumothorax. Trace right pleural effusion similar to prior. Right basalatelectatic changes. No new lung consolidation. IMPRESSION: Interval extubation and removal of the Cameron-Liliane catheter. Otherwise nosignificant interval change. CRITICAL RESULT: No. COMMUNICATION: Per this written report. Drafted by Blanco Santillan MD on 06/27/2025 9:25 AM Final report signed by Blanco Santillan MD on 06/27/2025 9:27 AM Khushbu Gordon MD IMG XR PROCEDURES Final Result * (ABNORMAL) POCT glucose meter (06/27/2025 12:01 AM EDT) POCT Glucose 114(H) 74 - 99 mg/dL 06/27/2025 12:02 AM EDT [facility] Comment:Accuracy of a glucos e result obtained from a capillary whole blood specimen relies upon adequate, non-compromised capillary blood flow. If the capillary glucose result is not consistent with the patient's clinical signs and symptoms, glucose testing should be repeated with either an arterial or venous sample on the glucometer or sent to the main labortory for testing. Comment 06/27/2025 12:02 AM EDT [facility] Ship Carpenter ID Jed Contreras 06/27/2025 12:02 AM EDT [facility] Device ID [id number] 06/27/2025 12:02 AM EDT [facility] Specimen Type POC Venous 06/27/2025 12:02 AM EDT [facility] Blood Venous blood specimen / Unknown 06/27/2025 12:01 AM EDT 06/27/2025 12:02 AM EDT us Khushbu Gordon MD LAB POINT OF CARE TE ST DOCKED DEVICE UNSOLICITED RESULTS Final Result [facility] [address] [place] [address] * (ABNORMAL) Ionized calcium, whole blood (06/27/2025 12:00 AM EDT) Ionized Calcium, Whole Blood 4.3(L) 4.6 - 5.1 mg/dL LAB HEMATOLOGY METHOD 06/27/2025 12:15 AM EDT [facility] Blood Venous blood specimen / Unknown Venipuncture / Unknown 06/27/2025 12:00 AM EDT 06/27/2025 12:12 AM EDT us Khushbu Gordon MD LAB BLOOD ORDERABLES Final Res ult Performing Organization Address City/[facility]/ZIP Co de Phone Number [facility] [address] [place] [address] * Magnesium, Plasma (06/27/2025 12:00 AM EDT) Magnesium, Plasma 2.3 1.9 - 2.4 mg/dL 06/27/2025 12:37 AM EDT [facility] Blood Venous blood specimen / Unknown Venipuncture / Unknown 06/27/2025 12:00 AM EDT 06/27/2025 12:08 AM EDT us Khushbu Gordon MD LAB BLOOD ORDERABLES Final Res ult [facility] [address] [place] [address] * (ABNORMAL) Renal Function Panel, Plasma (06/27/2025 12:00 AM EDT) Glucose, Plasma 119(H) 74 - 99 mg/dL 06/27/2025 12:37 AM EDT [facility] BUN, Plasma 17 8 - 23 mg/dL 06/27/2025 12:37 AM EDT [facility] Creatinine, Plasma 0.71 0.70 - 1.20 mg/dL 06/27/2025 12:37 AM EDT [facility] BUN/Creatinine Ratio 24 06/27/2025 12:37 AM EDT [facility] Sodium, Plasma 139 136 - 145 mmol/L 06/27/2025 12:37 AM EDT [facility] Potassium, Plasma 4.1 3.6 - 4.9 mmol/L 06/27/2025 12:37 AM EDT [facility] Chloride, Plasma 103 97 - 107 mmol/L 06/27/2025 12:37 AM EDT [facility] CO2, Plasma 27 22 - 29 mmol/L 06/27/2025 12:37 AM EDT [facility] Anion Gap 9 6 - 16 mmol/L 06/27/2025 12:37 AM EDT [facility] Total Calcium, Plasma 8.0(L) 8.9 - 10.2 mg/dL 06/27/2025 12:37 AM EDT [facility] Phosphorus, Plasma 2.3(L) 2.5 - 4.5 mg/dL 06/27/2025 12:37 AM EDT [facility] Albumin, Plasma 3.5 3.5 - 5.2 g/dL 06/27/2025 12:37 AM EDT [facility] eGFRcr 96.9 mL/min/1.7 3m*2 06/27/2025 12:37 AM EDT [facility] Comment:Reported eGFRcr in m L/min/1.73m2 is based the CKD-EPI 2020 equation that does not use a race coefficient. Blood Venous blood specimen / Unknown Venipuncture / Unknown 06/27/2025 12:00 AM EDT 06/27/2025 12:08 AM EDT us Khushbu Gordon MD LAB BLOOD ORDERABLES Final Res ult [facility] [address] [place] [address] * [place] CRITICAL CARE, ADDL 30 MIN (06/26/2025 1:24 PM EDT) Narrative Clemente Pollard MD - 06/26/2025 1:24 PM EDT Clemente Pollard MD 06/26/2025 4:15 PM Critical Care Performed by: Clemente Pollard MD Authorized by: Clemente Pollard MD Critical care provider statement: Critical care time (minutes): 38 Critical care time was exclusive of: Separately billable procedures and treating other patients and teaching time Critical care was time spent personally by me on the following activities: Development of treatment plan with patient or surrogate, ordering and performing treatments and interventions, discussions with consultants, ordering and review of laboratory studies, discussions with primary provider, ordering and review of radiographic studies, evaluation of patient's response to treatment and examination of patient I assumed subsequent critical care for this patient from a provider in my division, on the same day: yes Critical care statement: I saw and evaluated the patient with the resident/ fellow. I discussed the case with the resident/ fellow and agree with the findings and plan as documented. us Clemente Pollard MD IN CLINIC/BEDSIDE ORDERABLES Fi nal Result * (ABNORMAL) POCT glucose meter (06/26/2025 1:01 PM EDT) POCT Glucose 122(H) 74 - 99 mg/dL 06/26/2025 1:03 PM EDT [facility] Comment:Accuracy of a glucos e result obtained from a capillary whole blood specimen relies upon adequate, non-compromised capillary blood flow. If the capillary glucose result is not consistent with the patient's clinical signs and symptoms, glucose testing should be repeated with either an arterial or venous sample on the glucometer or sent to the main labortory for testing. Comment 06/26/2025 1:03 PM EDT [facility] Ship Carpenter ID Betito Gold 06/26/2025 1:03 PM EDT [facility] Device ID [id number] 06/26/2025 1:03 PM EDT [facility] Specimen Type POC Capillary 06/26/2025 1:03 PM EDT [facility] Blood Capillary blood specimen / Unknown 06/26/2025 1:01 PM EDT 06/26/2025 1:03 PM EDT Khushbu Gordon MD LAB POINT OF CARE TE ST DOCKED DEVICE UNSOLICITED RESULTS Final Result Performing Organization Address City/[facility] de Phone Number [facility] [address] [place] [address] * (ABNORMAL) POCT glucose meter (06/26/2025 5:46 AM EDT) POCT Glucose 152(H) 74 - 99 mg/dL 06/26/2025 5:47 AM EDT [facility] Comment:Accuracy of a glucos e result obtained from a capillary whole blood specimen relies upon adequate, non-compromised capillary blood flow. If the capillary glucose result is not consistent with the patient's clinical signs and symptoms, glucose testing should be repeated with either an arterial or venous sample on the glucometer or sent to the main labortory for testing. Comment 06/26/2025 5:47 AM EDT [facility] Ship Carpenter ID John Amaya 06/26/2025 5:47 AM EDT [facility] Device ID [id number] 06/26/2025 5:47 AM EDT [facility] Specimen Type POC Capillary 06/26/2025 5:47 AM EDT [facility] Blood Capillary blood specimen / Unknown 06/26/2025 5:46 AM EDT 06/26/2025 5:47 AM EDT Khushbu Gordon MD LAB POINT OF CARE TE ST DOCKED DEVICE UNSOLICITED RESULTS Final Result Performing Organization Address City/[facility]/ZIP Co de Phone Number [facility] [address] [place] [address] * POCT glucose meter (06/26/2025 5:44 AM EDT) POCT Glucose 07/02/2025 12:00 PM EST [facility] Comment: Accuracy of a glucose result obtained from a capillary whole blood specimen relies upon adequate, non-compromised capillary blood flow. If the capillary glucose result is not consistent with the patient's clinical signs and symptoms, glucose testing should be repeated with either an arterial or venous sample on the glucometer or sent to the main labortory for testing. Corrected result: Previously reported as 44 mg/dL on 06/26/2025 at 0545 EDT. Comment 07/02/2025 12:00 PM EST [facility] Ship Carpenter ID John Amaya 07/02/2025 12:00 PM EST [facility] Device ID [id number] 07/02/2025 12:00 PM EST [facility] Specimen Type POC Arterial 07/02/2025 12:00 PM EST [facility] Blood Arterial blood specimen / Unknown 06/26/2025 5:44 AM EDT 06/26/2025 5:45 AM EDT Khushbu Gordon MD LAB POINT OF CARE TE ST DOCKED DEVICE UNSOLICITED RESULTS Edited Result - Final Performing Organization Address City/State/[facility] Co de Phone Number [facility] [address] [place] [address] * (ABNORMAL) Blood gas, arterial (06/26/2025 4:06 AM EDT) pH, Arterial 7.43(H) 7.31 - 7.42 LAB HEMATOLOGY METHOD 06/26/2025 4:16 AM EDT [facility] pCO2, Arterial 37 32 - 45 mmHg LAB HEMATOLOGY METHOD 06/26/2025 4:16 AM EDT [facility] pO2, Arterial 102 >70 mmHg LAB HEMATOLOGY METHOD 06/26/2025 4:16 AM EDT [facility] SO2, Measured, Arterial 99(H) 94 - 98 % LAB HEMATOLOGY METHOD 06/26/2025 4:16 AM EDT [facility] Base Excess, Arterial 0.2 -2.0 - 3.0 mmol/L LAB HEMATOLOGY METHOD 06/26/2025 4:16 AM EDT [facility] Bicarbonate, Calculated, Arterial 24 22 - 26 mmol/L LAB HEMATOLOGY METHOD 06/26/2025 4:16 AM EDT [facility] Hematocrit, Whole Blood 32.4(L) 40.0 - 51.0 % LAB HEMATOLOGY METHOD 06/26/2025 4:16 AM EDT [facility] Sodium, Whole Blood 140 136 - 145 mmol/L LAB HEMATOLOGY METHOD 06/26/2025 4:16 AM EDT [facility] Potassium, Whole Blood 5.2(H) 3.6 - 4.9 mmol/L LAB HEMATOLOGY METHOD 06/26/2025 4:16 AM EDT [facility] Chloride, Whole Blood 109(H) 97 - 107 mmol/L LAB HEMATOLOGY METHOD 06/26/2025 4:16 AM EDT [facility] Glucose, Whole Blood 149(H) 74 - 99 mg/dL LAB HEMATOLOGY METHOD 06/26/2025 4:16 AM EDT [facility] Ionized Calcium, Whole Blood 4.2(L) 4.6 - 5.1 mg/dL LAB HEMATOLOGY METHOD 06/26/2025 4:16 AM EDT [facility] Lactate, Arterial, Whole Blood 1.2 0.5 - 1.6 mmol/L LAB HEMATOLOGY METHOD 06/26/2025 4:16 AM EDT [facility] Blood Arterial blood specimen / Unknown Arterial Puncture / Unknown 06/26/2025 4:06 AM EDT 06/26/2025 4:14 AM EDT us Khushbu Gordon MD LAB BLOOD ORDERABLES Final Res ult [facility] [address] [place] [address] * (ABNORMAL) Blood gas, arterial (06/26/2025 3:04 AM EDT) pH, Arterial 7.40 7.31 - 7.42 LAB HEMATOLOGY METHOD 06/26/2025 3:18 AM EDT [facility] pCO2, Arterial 38 32 - 45 mmHg LAB HEMATOLOGY METHOD 06/26/2025 3:18 AM EDT [facility] pO2, Arterial 112 >70 mmHg LAB HEMATOLOGY METHOD 06/26/2025 3:18 AM EDT [facility] SO2, Measured, Arterial 99(H) 94 - 98 % LAB HEMATOLOGY METHOD 06/26/2025 3:18 AM EDT [facility] Base Excess, Arterial -0.7 -2.0 - 3.0 mmol/L LAB HEMATOLOGY METHOD 06/26/2025 3:18 AM EDT [facility] Bicarbonate, Calculated, Arterial 24 22 - 26 mmol/L LAB HEMATOLOGY METHOD 06/26/2025 3:18 AM EDT [facility] Hematocrit, Whole Blood 33.6(L) 40.0 - 51.0 % LAB HEMATOLOGY METHOD 06/26/2025 3:18 AM EDT [facility] Sodium, Whole Blood 141 136 - 145 mmol/L LAB HEMATOLOGY METHOD 06/26/2025 3:18 AM EDT [facility] Potassium, Whole Blood 4.5 3.6 - 4.9 mmol/L LAB HEMATOLOGY METHOD 06/26/2025 3:18 AM EDT [facility] Chloride, Whole Blood 110(H) 97 - 107 mmol/L LAB HEMATOLOGY METHOD 06/26/2025 3:18 AM EDT [facility] Glucose, Whole Blood 152(H) 74 - 99 mg/dL LAB HEMATOLOGY METHOD 06/26/2025 3:18 AM EDT [facility] Ionized Calcium, Whole Blood 4.3(L) 4.6 - 5.1 mg/dL LAB HEMATOLOGY METHOD 06/26/2025 3:18 AM EDT [facility] Lactate, Arterial, Whole Blood 1.4 0.5 - 1.6 mmol/L LAB HEMATOLOGY METHOD 06/26/2025 3:18 AM EDT [facility] Blood Arterial blood specimen / Unknown Arterial Puncture / Unknown 06/26/2025 3:04 AM EDT 06/26/2025 3:16 AM EDT us Khushbu Gordon MD LAB BLOOD ORDERABLES Final Res ult [facility] [address] [place] [address] * XR Chest 1 View (06/26/2025 2:30 AM EDT) Anatomical Region Laterality Modality Chest Digital Radiogra phy Impressions 06/26/2025 10:59 AM EDT Trace right apical pneumothorax. Otherwise, no significant interval change. CRITICAL RESULT: No. COMMUNICATION: Per this written report. Drafted by Blanco Santillan MD on 06/26/2025 10:57 AM Final report signed by Blanco Santillan MD on 06/26/2025 10:59 AM Narrative 06/26/2025 10:59 AM EDT CLINICAL INDICATION: Post-Op Cardiac Surgery TECHNIQUE: Single AP view of chest. COMPARISON: One day prior FINDINGS: Stable support hardware. The cardiomediastinal contours unchanged. Trace apical right pneumothorax. No lung consolidation. Bibasal atelectatic changes. Procedure Note Blanco Santillan MD - 06/26/2025 CLINICAL INDICATION: Post-Op Cardiac Surgery TECHNIQUE: Single AP view of chest. COMPARISON: One day prior FINDINGS: Stable support hardware. The cardiomediastinal contours unchanged. Traceapical right pneumothorax. No lung consolidation. Bibasal atelectaticchanges. IMPRESSION: Trace right apical pneumothorax. Otherwise, no significant intervalchange. CRITICAL RESULT: No. COMMUNICATION: Per this written report. Drafted by Blanco Santillan MD on 06/26/2025 10:57 AM Final report signed by Blanco Santillan MD on 06/26/2025 10:59 AM Khushbu Gordon MD IMG XR PROCEDURES Final Result * ECG Adult - POD 1 (06/26/2025 1:59 AM EDT) EKG DIAGNOSIS CLASS Abnormal MUSE ECG Ventricular Rate 90 BPM MUSE ECG QRSD Interval 76 ms MUSE ECG QT Interval 372 ms MUSE ECG QTC Interval 455 ms MUSE ECG R [place] 32 degrees MUSE ECG T Wave [place] 66 degrees MUSE ECG Diagnosis Atrial fibrillation with controlled ventricular response MUSE ECG Diagnosis Abnormal ECG MUSE ECG Diagnosis MUSE ECG Diagnosis Confirmed by Jovi Perez ([id number]) on 06/26/2025 9:05:21 PM MUSE ECG 06/26/2025 1:59 AM EDT 06/26/2025 9:05 PM EDT Khushbu Gordon MD ECG ORDERABLES Final Result MUSE ECG * Potassium, Plasma (06/26/2025 12:45 AM EDT) Potassium, Plasma 4.8 3.6 - 4.9 mmol/L 06/26/2025 1:15 AM EDT [facility] Blood Venous blood specimen / Unknown Venipuncture / Unknown 06/26/2025 12:45 AM EDT 06/26/2025 12:54 AM EDT us Khushbu Gordon MD LAB BLOOD ORDERABLES Final Res ult [facility] [address] [place] [address] * (ABNORMAL) Hematocrit (06/26/2025 12:45 AM EDT) HCT 33.8(L) 40.0 - 51.0 % LAB HEMATOLOGY METHOD 06/26/2025 1:03 AM EDT [facility] Blood Venous blood specimen / Unknown Venipuncture / Unknown 06/26/2025 12:45 AM EDT 06/26/2025 12:54 AM EDT us Khushbu Gordon MD LAB BLOOD ORDERABLES Final Res ult Performing Organization Address City/[facility]/ZIP Co de Phone Number [facility] [address] [place] [address] * (ABNORMAL) Hemoglobin (06/26/2025 12:45 AM EDT) HGB 11.0(L) 13.7 - 17.5 g/dL LAB HEMATOLOGY METHOD 06/26/2025 1:03 AM EDT [facility] Blood Venous blood specimen / Unknown Venipuncture / Unknown 06/26/2025 12:45 AM EDT 06/26/2025 12:54 AM EDT us Khushbu Gordon MD LAB BLOOD ORDERABLES Final Res ult [facility] [address] [place] [address] * (ABNORMAL) Blood gas, arterial (06/26/2025 12:45 AM EDT) pH, Arterial 7.43(H) 7.31 - 7.42 LAB HEMATOLOGY METHOD 06/26/2025 12:57 AM EDT [facility] pCO2, Arterial 36 32 - 45 mmHg LAB HEMATOLOGY METHOD 06/26/2025 12:57 AM EDT [facility] pO2, Arterial 152 >70 mmHg LAB HEMATOLOGY METHOD 06/26/2025 12:57 AM EDT [facility] SO2, Measured, Arterial 100(H) 94 - 98 % LAB HEMATOLOGY METHOD 06/26/2025 12:57 AM EDT [facility] Base Excess, Arterial -0.2 -2.0 - 3.0 mmol/L LAB HEMATOLOGY METHOD 06/26/2025 12:57 AM EDT [facility] Bicarbonate, Calculated, Arterial 24 22 - 26 mmol/L LAB HEMATOLOGY METHOD 06/26/2025 12:57 AM EDT [facility] Hematocrit, Whole Blood 33.9(L) 40.0 - 51.0 % LAB HEMATOLOGY METHOD 06/26/2025 12:57 AM EDT [facility] Sodium, Whole Blood 139 136 - 145 mmol/L LAB HEMATOLOGY METHOD 06/26/2025 12:57 AM EDT [facility] Potassium, Whole Blood 4.8 3.6 - 4.9 mmol/L LAB HEMATOLOGY METHOD 06/26/2025 12:57 AM EDT [facility] Chloride, Whole Blood 111(H) 97 - 107 mmol/L LAB HEMATOLOGY METHOD 06/26/2025 12:57 AM EDT [facility] Glucose, Whole Blood 144(H) 74 - 99 mg/dL LAB HEMATOLOGY METHOD 06/26/2025 12:57 AM EDT [facility] Ionized Calcium, Whole Blood 4.1(L) 4.6 - 5.1 mg/dL LAB HEMATOLOGY METHOD 06/26/2025 12:57 AM EDT [facility] Lactate, Arterial, Whole Blood 1.4 0.5 - 1.6 mmol/L LAB HEMATOLOGY METHOD 06/26/2025 12:57 AM EDT [facility] Blood Arterial blood specimen / Unknown Arterial Puncture / Unknown 06/26/2025 12:45 AM EDT 06/26/2025 12:54 AM EDT us Khushbu Gordon MD LAB BLOOD ORDERABLES Final Res ult Performing Organization Address City/[facility]/ZIP Co de Phone Number [facility] [address] [place] [address] * (ABNORMAL) POCT glucose meter (06/25/2025 8:04 PM EDT) [facility] POCT Glucose 157(H) 74 - 99 mg/dL 06/25/2025 8:08 PM EDT [facility] Comment:Accuracy of a glucos e result obtained from a capillary whole blood specimen relies upon adequate, non-compromised capillary blood flow. If the capillary glucose result is not consistent with the patient's clinical signs and symptoms, glucose testing should be repeated with either an arterial or venous sample on the glucometer or sent to the main labortory for testing. Comment 06/25/2025 8:08 PM EDT [facility] Ship Carpenter ID John Amaya 06/25/2025 8:08 PM EDT [facility] Device ID [id number] 06/25/2025 8:08 PM EDT [facility] Specimen Type POC Arterial 06/25/2025 8:08 PM EDT [facility] Blood Arterial blood specimen / Unknown 06/25/2025 8:04 PM EDT 06/25/2025 8:08 PM EDT us Khushbu Gordon MD LAB POINT OF CARE TE ST DOCKED DEVICE UNSOLICITED RESULTS Final Result Performing Organization Address City/[facility] Co de Phone Number [facility] [address] [place] [address] * (ABNORMAL) CBC (06/25/2025 7:58 PM EDT) [facility] WBC Count 17.79(H) 3.70 - 10.30 10*3/uL LAB HEMATOLOGY METHOD 06/25/2025 8:24 PM EDT [facility] RBC Count 3.87(L) 4.60 - 6.10 10*6/uL LAB HEMATOLOGY METHOD 06/25/2025 8:24 PM EDT [facility] HGB 11.3(L) 13.7 - 17.5 g/dL LAB HEMATOLOGY METHOD 06/25/2025 8:24 PM EDT [facility] HCT 34.3(L) 40.0 - 51.0 % LAB HEMATOLOGY METHOD 06/25/2025 8:24 PM EDT [facility] Platelet Count 168 155 - 369 10*3/uL LAB HEMATOLOGY METHOD 06/25/2025 8:24 PM EDT [facility] MCV 89 79 - 98 fL LAB HEMATOLOGY METHOD 06/25/2025 8:24 PM EDT [facility] MCH 29.2 26.0 - 32.0 pg LAB HEMATOLOGY METHOD 06/25/2025 8:24 PM EDT [facility] MCHC 32.9 30.7 - 35.5 g/dL LAB HEMATOLOGY METHOD 06/25/2025 8:24 PM EDT [facility] RDW 14.0 11.5 - 14.5 % LAB HEMATOLOGY METHOD 06/25/2025 8:24 PM EDT [facility] MPV 10.9 8.8 - 12.5 fL LAB HEMATOLOGY METHOD 06/25/2025 8:24 PM EDT [facility] nRBC 0.0 <=0.0 per 100 WBCs LAB HEMATOLOGY METHOD 06/25/2025 8:24 PM EDT [facility] Blood Venous blood specimen / Unknown Venipuncture / Unknown 06/25/2025 7:58 PM EDT 06/25/2025 8:16 PM EDT us Khushbu Gordon MD LAB BLOOD ORDERABLES Final Res ult [facility] [address] [place] [address] * (ABNORMAL) Basic metabolic panel (06/25/2025 7:58 PM EDT) Glucose, Plasma 166(H) 74 - 99 mg/dL 06/25/2025 8:47 PM EDT [facility] BUN, Plasma 13 8 - 23 mg/dL 06/25/2025 8:47 PM EDT [facility] Creatinine, Plasma 0.61(L) 0.70 - 1.20 mg/dL 06/25/2025 8:47 PM EDT [facility] BUN/Creatinine Ratio 21 06/25/2025 8:47 PM EDT [facility] Sodium, Plasma 141 136 - 145 mmol/L 06/25/2025 8:47 PM EDT [facility] Potassium, Plasma 5.6(H) 3.6 - 4.9 mmol/L 06/25/2025 8:47 PM EDT [facility] Chloride, Plasma 108(H) 97 - 107 mmol/L 06/25/2025 8:47 PM EDT [facility] CO2, Plasma 22 22 - 29 mmol/L 06/25/2025 8:47 PM EDT [facility] Anion Gap 11 6 - 16 mmol/L 06/25/2025 8:47 PM EDT [facility] Total Calcium, Plasma 7.6(L) 8.9 - 10.2 mg/dL 06/25/2025 8:47 PM EDT [facility] eGFRcr 101.4 mL/min/1.7 3m*2 06/25/2025 8:47 PM EDT [facility] Comment:Reported eGFRcr in m L/min/1.73m2 is based the CKD-EPI 2020 equation that does not use a race coefficient. Blood Venous blood specimen / Unknown Venipuncture / Unknown 06/25/2025 7:58 PM EDT 06/25/2025 8:16 PM EDT us Khushbu Gordon MD LAB BLOOD ORDERABLES Final Res ult [facility] [address] [place] [address] * (ABNORMAL) Blood gas, arterial (06/25/2025 7:57 PM EDT) pH, Arterial 7.38 7.31 - 7.42 LAB HEMATOLOGY METHOD 06/25/2025 8:18 PM EDT [facility] pCO2, Arterial 41 32 - 45 mmHg LAB HEMATOLOGY METHOD 06/25/2025 8:18 PM EDT [facility] pO2, Arterial 136 >70 mmHg LAB HEMATOLOGY METHOD 06/25/2025 8:18 PM EDT [facility] SO2, Measured, Arterial 100(H) 94 - 98 % LAB HEMATOLOGY METHOD 06/25/2025 8:18 PM EDT [facility] Base Excess, Arterial -1.1 -2.0 - 3.0 mmol/L LAB HEMATOLOGY METHOD 06/25/2025 8:18 PM EDT [facility] Bicarbonate, Calculated, Arterial 24 22 - 26 mmol/L LAB HEMATOLOGY METHOD 06/25/2025 8:18 PM EDT [facility] Hematocrit, Whole Blood 34.4(L) 40.0 - 51.0 % LAB HEMATOLOGY METHOD 06/25/2025 8:18 PM EDT [facility] Sodium, Whole Blood 139 136 - 145 mmol/L LAB HEMATOLOGY METHOD 06/25/2025 8:18 PM EDT [facility] Potassium, Whole Blood 5.2(H) 3.6 - 4.9 mmol/L LAB HEMATOLOGY METHOD 06/25/2025 8:18 PM EDT [facility] Chloride, Whole Blood 110(H) 97 - 107 mmol/L LAB HEMATOLOGY METHOD 06/25/2025 8:18 PM EDT [facility] Glucose, Whole Blood 164(H) 74 - 99 mg/dL LAB HEMATOLOGY METHOD 06/25/2025 8:18 PM EDT [facility] Ionized Calcium, Whole Blood 4.1(L) 4.6 - 5.1 mg/dL LAB HEMATOLOGY METHOD 06/25/2025 8:18 PM EDT [facility] Lactate, Arterial, Whole Blood 1.4 0.5 - 1.6 mmol/L LAB HEMATOLOGY METHOD 06/25/2025 8:18 PM EDT [facility] Blood Arterial blood specimen / Unknown Arterial Puncture / Unknown 06/25/2025 7:57 PM EDT 06/25/2025 8:16 PM EDT us Khushbu Gordon MD LAB BLOOD ORDERABLES Final Res ult [facility] [address] [place] [address] * Prepare Fresh Frozen Plasma: 1 Units (06/25/2025 6:34 PM EDT) Product Code U6565J62 BLOO D BANK Dispense Status Transfused BLOOD BANK Blood Expiration Date [id number] BLOOD BANK Unit Number [id number] CH B LOOD BANK Product Blood Type 6200 BLOOD BANK Blood Type A+ BLOOD BANK Blood Venous blood specimen / Unknown Khushbu Gordon MD BLOOD BANK PRODUCT ORDERABLES Final Result Performing Organization Address City/[facility]/ZIP Co de Phone Number BLOOD BANK [address] * (ABNORMAL) Potassium, Plasma (06/25/2025 5:15 PM EDT) Potassium, Plasma 5.5(H) 3.6 - 4.9 mmol/L 06/25/2025 6:42 PM EDT [facility] Blood Venous blood specimen / Unknown Venipuncture / Unknown 06/25/2025 5:15 PM EDT 06/25/2025 6:20 PM EDT Khushbu Gordon MD LAB BLOOD ORDERABLES Final Res ult Performing Organization Address City/[facility] Co de Phone Number [facility] [address] [place] [address] * (ABNORMAL) Hematocrit (06/25/2025 5:15 PM EDT) HCT 37.6(L) 40.0 - 51.0 % LAB HEMATOLOGY METHOD 06/25/2025 6:04 PM EDT [facility] Blood Venous blood specimen / Unknown Venipuncture / Unknown 06/25/2025 5:15 PM EDT 06/25/2025 5:55 PM EDT Khushbu Gordon MD LAB BLOOD ORDERABLES Final Res ult Performing Organization Address City/[facility]/ZIP Co de Phone Number [facility] [address] [place] [address] * (ABNORMAL) Hemoglobin (06/25/2025 5:15 PM EDT) HGB 12.7(L) 13.7 - 17.5 g/dL LAB HEMATOLOGY METHOD 06/25/2025 6:04 PM EDT [facility] Blood Venous blood specimen / Unknown Venipuncture / Unknown 06/25/2025 5:15 PM EDT 06/25/2025 5:55 PM EDT us Khushbu Gordon MD LAB BLOOD ORDERABLES Final Res ult [facility] [address] [place] [address] * (ABNORMAL) Blood gas, arterial (06/25/2025 5:14 PM EDT) pH, Arterial 7.35 7.31 - 7.42 LAB HEMATOLOGY METHOD 06/25/2025 5:25 PM EDT [facility] pCO2, Arterial 42 32 - 45 mmHg LAB HEMATOLOGY METHOD 06/25/2025 5:25 PM EDT [facility] pO2, Arterial 134 >70 mmHg LAB HEMATOLOGY METHOD 06/25/2025 5:25 PM EDT [facility] SO2, Measured, Arterial 100(H) 94 - 98 % LAB HEMATOLOGY METHOD 06/25/2025 5:25 PM EDT [facility] Base Excess, Arterial -2.4(L) -2.0 - 3.0 mmol/L LAB HEMATOLOGY METHOD 06/25/2025 5:25 PM EDT [facility] Bicarbonate, Calculated, Arterial 23 22 - 26 mmol/L LAB HEMATOLOGY METHOD 06/25/2025 5:25 PM EDT [facility] Hematocrit, Whole Blood 38.8(L) 40.0 - 51.0 % LAB HEMATOLOGY METHOD 06/25/2025 5:25 PM EDT [facility] Sodium, Whole Blood 139 136 - 145 mmol/L LAB HEMATOLOGY METHOD 06/25/2025 5:25 PM EDT [facility] Potassium, Whole Blood 5.2(H) 3.6 - 4.9 mmol/L LAB HEMATOLOGY METHOD 06/25/2025 5:25 PM EDT [facility] Chloride, Whole Blood 112(H) 97 - 107 mmol/L LAB HEMATOLOGY METHOD 06/25/2025 5:25 PM EDT [facility] Glucose, Whole Blood 168(H) 74 - 99 mg/dL LAB HEMATOLOGY METHOD 06/25/2025 5:25 PM EDT [facility] Ionized Calcium, Whole Blood 4.1(L) 4.6 - 5.1 mg/dL LAB HEMATOLOGY METHOD 06/25/2025 5:25 PM EDT [facility] Lactate, Arterial, Whole Blood 1.4 0.5 - 1.6 mmol/L LAB HEMATOLOGY METHOD 06/25/2025 5:25 PM EDT [facility] Blood Arterial blood specimen / Unknown Arterial Puncture / Unknown 06/25/2025 5:14 PM EDT 06/25/2025 5:24 PM EDT us Khushbu Gordon MD LAB BLOOD ORDERABLES Final Res ult [facility] [address] [place] [address] * (ABNORMAL) Blood gas panel, arterial (06/25/2025 3:47 PM EDT) pH, Arterial 7.35 7.31 - 7.42 LAB HEMATOLOGY METHOD 06/25/2025 4:13 PM EDT [facility] pCO2, Arterial 43 32 - 45 mmHg LAB HEMATOLOGY METHOD 06/25/2025 4:13 PM EDT [facility] pO2, Arterial 156 >70 mmHg LAB HEMATOLOGY METHOD 06/25/2025 4:13 PM EDT [facility] SO2, Measured, Arterial 100(H) 94 - 98 % LAB HEMATOLOGY METHOD 06/25/2025 4:13 PM EDT [facility] Base Excess, Arterial -1.7 -2.0 - 3.0 mmol/L LAB HEMATOLOGY METHOD 06/25/2025 4:13 PM EDT [facility] Bicarbonate, Calculated, Arterial 24 22 - 26 mmol/L LAB HEMATOLOGY METHOD 06/25/2025 4:13 PM EDT [facility] Hematocrit, Whole Blood 38.3(L) 40.0 - 51.0 % LAB HEMATOLOGY METHOD 06/25/2025 4:13 PM EDT [facility] Sodium, Whole Blood 139 136 - 145 mmol/L LAB HEMATOLOGY METHOD 06/25/2025 4:13 PM EDT [facility] Potassium, Whole Blood 4.9 3.6 - 4.9 mmol/L LAB HEMATOLOGY METHOD 06/25/2025 4:13 PM EDT [facility] Chloride, Whole Blood 111(H) 97 - 107 mmol/L LAB HEMATOLOGY METHOD 06/25/2025 4:13 PM EDT [facility] Glucose, Whole Blood 149(H) 74 - 99 mg/dL LAB HEMATOLOGY METHOD 06/25/2025 4:13 PM EDT [facility] Ionized Calcium, Whole Blood 4.2(L) 4.6 - 5.1 mg/dL LAB HEMATOLOGY METHOD 06/25/2025 4:13 PM EDT [facility] Lactate, Arterial, Whole Blood 1.3 0.5 - 1.6 mmol/L LAB HEMATOLOGY METHOD 06/25/2025 4:13 PM EDT [facility] Blood Arterial blood specimen / Unknown Arterial Puncture / Unknown 06/25/2025 3:47 PM EDT 06/25/2025 4:10 PM EDT us Khushbu Gordon MD LAB BLOOD ORDERABLES Final Res ult [facility] [address] [place] [address] * (ABNORMAL) TEG Global Hemostasis with Heparinase (06/25/2025 3:46 PM EDT) R >17.0(H) 4.6 - 9.1 min 06/25/2025 5:30 PM EDT [facility] R, Heparinase 7.0 4.3 - 8.3 min 06/25/2025 5:30 PM EDT [facility] K 2.3(H) 0.8 - 2.1 min 06/25/2025 5:30 PM EDT [facility] Angle 56.6(L) 63.0 - 78.0 degrees 06/25/2025 5:30 PM EDT [facility] MA 49.8(L) 52.0 - 69.0 mm 06/25/2025 5:30 PM EDT [facility] MA, Rapid 61.5 52.0 - 70.0 mm 06/25/2025 5:30 PM EDT [facility] MA, Fibrinogen 20.6 15.0 - 32.0 mm 06/25/2025 5:30 PM EDT [facility] FLEV 375.9 278.0 - 581.0 mg/dl 06/25/2025 5:30 PM EDT [facility] Blood Venous blood specimen / Unknown Venipuncture / Unknown 06/25/2025 3:46 PM EDT 06/25/2025 4:28 PM EDT Khushbu Gordon MD LAB BLOOD ORDERABLES Final Res ult Performing Organization Address [facility] [place] [address] * (ABNORMAL) TEG Global Hemostasis with Lysis (06/25/2025 3:46 PM EDT) R, Lysis >17.0(H) 4.6 - 9.1 min 06/25/2025 6:11 PM EDT [facility] MA, Rapid, Lysis 60.2 52.0 - 70.0 mm 06/25/2025 6:11 PM EDT [facility] MA, Fibrinogen, Lysis 18.6 15.0 - 32.0 mm 06/25/2025 6:11 PM EDT [facility] LY30 1.2 0.0 - 2.6 % 06/25/2025 6:11 PM EDT [facility] Blood Venous blood specimen / Unknown Venipuncture / Unknown 06/25/2025 3:46 PM EDT 06/25/2025 4:28 PM EDT us Khushbu Gordon MD LAB BLOOD ORDERABLES Final Res ult Performing Organization Address [facility] [place] [address] * (ABNORMAL) POCT glucose meter (06/25/2025 3:26 PM EDT) POCT Glucose 163(H) 74 - 99 mg/dL 06/25/2025 3:28 PM EDT [facility] Comment:Accuracy of a glucos e result obtained from a capillary whole blood specimen relies upon adequate, non-compromised capillary blood flow. If the capillary glucose result is not consistent with the patient's clinical signs and symptoms, glucose testing should be repeated with either an arterial or venous sample on the glucometer or sent to the main labortory for testing. Comment 06/25/2025 3:28 PM EDT [facility] Ship Carpenter ID Betito Gold 06/25/2025 3:28 PM EDT [facility] Device ID [id number] 06/25/2025 3:28 PM EDT [facility] Specimen Type POC Capillary 06/25/2025 3:28 PM EDT [facility] Blood Capillary blood specimen / Unknown 06/25/2025 3:26 PM EDT 06/25/2025 3:28 PM EDT Khushbu Gordon MD LAB POINT OF CARE TE ST DOCKED DEVICE UNSOLICITED RESULTS Final Result Performing Organization Address City/State/[facility] Co de Phone Number [facility] [address] [place] [address] * XR Abdomen 1 View (06/25/2025 2:16 PM EDT) Anatomical Region Laterality Modality Body Digital Radiogra phy Impressions 06/25/2025 2:27 PM EDT The tip of the enteric tube is in the proximal stomach with the proximal side port in the distal esophagus. CRITICAL RESULT: No. COMMUNICATION: Per this written report. Drafted by Oniel Morgan MD on 06/25/2025 2:24 PM Final report signed by Oniel Morgan MD on 06/25/2025 2:27 PM Narrative 06/25/2025 2:27 PM EDT CLINICAL INDICATION: OG confuirmation TECHNIQUE: Supine radiograph of the abdomen. COMPARISON: None. FINDINGS: Limited [id number] abdominal radiograph for the purpose of locating tube position. The tip of the enteric tube is in the proximal stomach. The proximal side port is in the distal esophagus. Procedure Note Oniel Morgan MD - 06/25/2025 CLINICAL INDICATION: OG confuirmation TECHNIQUE: Supine radiograph of the abdomen. COMPARISON: None. FINDINGS: Limited [id number] abdominal radiograph for the purpose of locatingtube position. The tip of the enteric tube is in the proximal stomach. The proximal sideport is in the distal esophagus. IMPRESSION: The tip of the enteric tube is in the proximal stomach with the proximalside port in the distal esophagus. CRITICAL RESULT: No. COMMUNICATION: Per this written report. Drafted by Oniel Morgan MD on 06/25/2025 2:24 PM Final report signed by Oniel Morgan MD on 06/25/2025 2:27 PM us Khushbu Gordon MD IMG XR PROCEDURES Final Result * XR Chest 1 View (06/25/2025 2:16 PM EDT) Anatomical Region Laterality Modality Chest Digital Radiogra phy Impressions 06/25/2025 2:54 PM EDT Interval intubation with tip of the ET tube terminating approximately 8 cm above the sujey. Recommend advancement of the ET tube. Minimal bibasilar atelectasis. No pneumothorax. Interval placement of additional lines/tubes as discussed above. CRITICAL RESULT: No. COMMUNICATION: Per this written report. By electronically signing this report, I, the attending physician, attest that I have personally reviewed the images/data for the above examination(s) and agree with the final edited report. Drafted by Kiran Roche MD on 06/25/2025 2:39 PM Final report signed by Michel Dior MD on 06/25/2025 2:54 PM Narrative 06/25/2025 2:54 PM EDT CLINICAL INDICATION: Post-Op Cardiac Surgery TECHNIQUE: Single AP view of chest. COMPARISON: Chest radiograph 06/18/2025. CTA chest 04/09/2025. FINDINGS: Interval placement of right IJ Cameron-Liliane catheter with tip terminating over the main pulmonary artery. Interval intubation with tip of the endotracheal tube terminating approximately 8 cm above the sujey. Mitral valve annuloplasty. Right chest tube and mediastinal drain are in place. The mediastinal contours and cardiac silhouette are stable. Minimal bibasilar atelectasis. No focal airspace consolidation. No pleural effusions or pneumothorax. No evidence of pulmonary edema. Procedure Note Michel Dior MD - 06/25/2025 CLINICAL INDICATION: Post-Op Cardiac Surgery TECHNIQUE: Single AP view of chest. COMPARISON: Chest radiograph 06/18/2025. CTA chest 04/09/2025. FINDINGS: Interval placement of right IJ Cameron-Liliane catheter with tip terminatingover the main pulmonary artery. Interval intubation with tip of theendotracheal tube terminating approximately 8 cm above the sujey. Mitralvalve annuloplasty. Right chest tube and mediastinal drain are in place.The mediastinal contours and cardiac silhouette are stable. Minimalbibasilar atelectasis. No focal airspace consolidation. No pleuraleffusions or pneumothorax. No evidence of pulmonary edema. IMPRESSION: Interval intubation with tip of the ET tube terminating approximately 8 cmabove the sujey. Recommend advancement of the ET tube. Minimal bibasilar atelectasis. No pneumothorax. Interval placement of additional lines/tubes as discussed above. CRITICAL RESULT: No. COMMUNICATION: Per this written report. By electronically signing this report, I, the attending physician, attestthat I have personally reviewed the images/data for the aboveexamination(s) and agree with the final edited report. Drafted by Kiran Roche MD on 06/25/2025 2:39 PM Final report signed by Michel Dior MD on 06/25/2025 2:54 PM Khushbu Gordon MD IMG XR PROCEDURES Final Result * [facility], E/M 30-74 MINUTES (06/25/2025 1:22 PM EDT) Narrative Jarett Morales MD - 06/25/2025 1:22 PM EDT Jarett Morales MD 06/29/2025 5:24 PM Critical Care Performed by: Jarett Morales MD Authorized by: Jarett Morales MD Critical care provider statement: Critical care time (minutes): 40 Critical care time was exclusive of: Separately billable procedures and treating other patients and teaching time Critical care was time spent personally by me on the following activities: Discussions with primary provider, evaluation of patient's response to treatment, examination of patient, obtaining history from patient or surrogate, ordering and performing treatments and interventions, ordering and review of laboratory studies, ordering and review of radiographic studies, review of old charts, ventilator management and development of treatment plan with patient or surrogate I assumed subsequent critical care for this patient from a provider in my division, on the same day: no Critical care statement: I saw and evaluated the patient with the resident/ fellow. I discussed the case with the resident/ fellow and agree with the findings and plan as documented. us Jarett Morales MD IN CLINIC/BEDSIDE ORDERABLES Fi nal Result * (ABNORMAL) Blood gas panel, mixed venous (06/25/2025 1:22 PM EDT) pH, Mixed Venous 7.27(L) 7.32 - 7.43 LAB HEMATOLOGY METHOD 06/25/2025 1:45 PM EDT [facility] pCO2, Mixed Venous 57(H) 40 - 55 mmHg LAB HEMATOLOGY METHOD 06/25/2025 1:45 PM EDT [facility] pO2, Mixed Venous 38 25 - 40 mmHg LAB HEMATOLOGY METHOD 06/25/2025 1:45 PM EDT [facility] SO2, Measured, Mixed Venous 68 65 - 80 % LAB HEMATOLOGY METHOD 06/25/2025 1:45 PM EDT [facility] Base Excess, Mixed Venous -1.4 -2.0 - 3.0 mmol/L LAB HEMATOLOGY METHOD 06/25/2025 1:45 PM EDT [facility] Bicarbonate, Calculated, Mixed Venous 26 22 - 26 mmol/L LAB HEMATOLOGY METHOD 06/25/2025 1:45 PM EDT [facility] Hematocrit, Whole Blood 34.4(L) 40.0 - 51.0 % LAB HEMATOLOGY METHOD 06/25/2025 1:45 PM EDT [facility] Sodium, Whole Blood 141 136 - 145 mmol/L LAB HEMATOLOGY METHOD 06/25/2025 1:45 PM EDT [facility] Potassium, Whole Blood 3.2(L) 3.6 - 4.9 mmol/L LAB HEMATOLOGY METHOD 06/25/2025 1:45 PM EDT [facility] Chloride, Whole Blood 110(H) 97 - 107 mmol/L LAB HEMATOLOGY METHOD 06/25/2025 1:45 PM EDT [facility] Ionized Calcium, Whole Blood 4.2(L) 4.6 - 5.1 mg/dL LAB HEMATOLOGY METHOD 06/25/2025 1:45 PM EDT [facility] Glucose, Whole Blood 183(H) 74 - 99 mg/dL LAB HEMATOLOGY METHOD 06/25/2025 1:45 PM EDT [facility] Blood Mixed venous blood specimen / Unknown 06/25/2025 1:22 PM EDT 06/25/2025 1:41 PM EDT us Khushbu Gordon MD LAB BLOOD ORDERABLES Final Res ult [facility] [address] [place] [address] * (ABNORMAL) Blood gas, arterial (06/25/2025 1:22 PM EDT) pH, Arterial 7.29(L) 7.31 - 7.42 LAB HEMATOLOGY METHOD 06/25/2025 1:46 PM EDT [facility] pCO2, Arterial 53(H) 32 - 45 mmHg LAB HEMATOLOGY METHOD 06/25/2025 1:46 PM EDT [facility] pO2, Arterial 102 >70 mmHg LAB HEMATOLOGY METHOD 06/25/2025 1:46 PM EDT [facility] SO2, Measured, Arterial 98 94 - 98 % LAB HEMATOLOGY METHOD 06/25/2025 1:46 PM EDT [facility] Base Excess, Arterial -1.9 -2.0 - 3.0 mmol/L LAB HEMATOLOGY METHOD 06/25/2025 1:46 PM EDT [facility] Bicarbonate, Calculated, Arterial 25 22 - 26 mmol/L LAB HEMATOLOGY METHOD 06/25/2025 1:46 PM EDT [facility] Hematocrit, Whole Blood 34.0(L) 40.0 - 51.0 % LAB HEMATOLOGY METHOD 06/25/2025 1:46 PM EDT [facility] Sodium, Whole Blood 142 136 - 145 mmol/L LAB HEMATOLOGY METHOD 06/25/2025 1:46 PM EDT [facility] Potassium, Whole Blood 3.2(L) 3.6 - 4.9 mmol/L LAB HEMATOLOGY METHOD 06/25/2025 1:46 PM EDT [facility] Chloride, Whole Blood 109(H) 97 - 107 mmol/L LAB HEMATOLOGY METHOD 06/25/2025 1:46 PM EDT [facility] Glucose, Whole Blood 189(H) 74 - 99 mg/dL LAB HEMATOLOGY METHOD 06/25/2025 1:46 PM EDT [facility] Ionized Calcium, Whole Blood 4.1(L) 4.6 - 5.1 mg/dL LAB HEMATOLOGY METHOD 06/25/2025 1:46 PM EDT [facility] Lactate, Arterial, Whole Blood 1.0 0.5 - 1.6 mmol/L LAB HEMATOLOGY METHOD 06/25/2025 1:46 PM EDT [facility] Blood Arterial blood specimen / Unknown Arterial Puncture / Unknown 06/25/2025 1:22 PM EDT 06/25/2025 1:42 PM EDT Khushbu Gordon MD LAB BLOOD ORDERABLES Final Res ult Performing Organization Address City/[facility]/ZIP Co de Phone Number [facility] [address] [place] [address] * (ABNORMAL) APTT (06/25/2025 1:21 PM EDT) aPTT 49(H) 25 - 35 sec LAB COAGULATION METHOD 06/25/2025 2:47 PM EDT [facility] Blood Venous blood specimen / Unknown Venipuncture / Unknown 06/25/2025 1:21 PM EDT 06/25/2025 1:41 PM EDT us Khushbu Gordon MD LAB BLOOD ORDERABLES Final Res ult [facility] [address] [place] [address] * (ABNORMAL) Protime-INR (06/25/2025 1:21 PM EDT) Prothrombin Time 16.9(H) 12.0 - 14.3 sec LAB COAGULATION METHOD 06/25/2025 2:47 PM EDT [facility] INR 1.3(H) 0.9 - 1.1 LAB COAGULATION METHOD 06/25/2025 2:47 PM EDT [facility] Blood Venous blood specimen / Unknown Venipuncture / Unknown 06/25/2025 1:21 PM EDT 06/25/2025 1:41 PM EDT Narrative [facility] - 06/25/2025 2:47 PM EDT OPTIMAL INR RANGES FOR PATIENT ON ORAL ANTICOAGULANT THERAPY Prevention of venous thromboembolism INR 2.0 to 3.0 In patients with heart disease: Atrial fibrillation INR 2.0 to 3.0 Valvular heart disease INR 2.0 to 3.0 Tissue heart valves INR 2.0 to 3.0 Mechanical prosthetic valves INR 2.5 to 3.5 Prevention of recurrent MO INR 2.5 to 3.5 us Khushbu Gordon MD LAB BLOOD ORDERABLES Final Res ult Performing Organization Address [facility] de Phone Number [facility] [address] [place] [address] * Phosphorus (06/25/2025 1:21 PM EDT) Phosphorus, Plasma 3.1 2.5 - 4.5 mg/dL 06/25/2025 2:10 PM EDT [facility] Blood Venous blood specimen / Unknown Venipuncture / Unknown 06/25/2025 1:21 PM EDT 06/25/2025 1:41 PM EDT us Khushbu Gordon MD LAB BLOOD ORDERABLES Final Res ult Performing Organization Address City/[facility] Co de Phone Number [facility] [address] [place] [address] * (ABNORMAL) Magnesium (06/25/2025 1:21 PM EDT) Magnesium, Plasma 3.0(H) 1.9 - 2.4 mg/dL 06/25/2025 2:10 PM EDT [facility] Blood Venous blood specimen / Unknown Venipuncture / Unknown 06/25/2025 1:21 PM EDT 06/25/2025 1:41 PM EDT us Khushbu Gordon MD LAB BLOOD ORDERABLES Final Res ult [facility] [address] [place] [address] * (ABNORMAL) Basic metabolic panel (06/25/2025 1:21 PM EDT) Glucose, Plasma 203(H) 74 - 99 mg/dL 06/25/2025 2:10 PM EDT [facility] BUN, Plasma 11 8 - 23 mg/dL 06/25/2025 2:10 PM EDT [facility] Creatinine, Plasma 0.56(L) 0.70 - 1.20 mg/dL 06/25/2025 2:10 PM EDT [facility] BUN/Creatinine Ratio 20 06/25/2025 2:10 PM EDT [facility] Sodium, Plasma 141 136 - 145 mmol/L 06/25/2025 2:10 PM EDT [facility] Potassium, Plasma 3.3(L) 3.6 - 4.9 mmol/L 06/25/2025 2:10 PM EDT [facility] Chloride, Plasma 108(H) 97 - 107 mmol/L 06/25/2025 2:10 PM EDT [facility] CO2, Plasma 21(L) 22 - 29 mmol/L 06/25/2025 2:10 PM EDT [facility] Anion Gap 12 6 - 16 mmol/L 06/25/2025 2:10 PM EDT [facility] Total Calcium, Plasma 7.2(L) 8.9 - 10.2 mg/dL 06/25/2025 2:10 PM EDT [facility] eGFRcr 104.1 mL/min/1.7 3m*2 06/25/2025 2:10 PM EDT [facility] Comment:Reported eGFRcr in m L/min/1.73m2 is based the CKD-EPI 2020 equation that does not use a race coefficient. Blood Venous blood specimen / Unknown Venipuncture / Unknown 06/25/2025 1:21 PM EDT 06/25/2025 1:41 PM EDT us Khushbu Gordon MD LAB BLOOD ORDERABLES Final Res ult [facility] [address] [place] [address] * (ABNORMAL) CBC (06/25/2025 1:21 PM EDT) WBC Count 13.79(H) 3.70 - 10.30 10*3/uL LAB HEMATOLOGY METHOD 06/25/2025 1:50 PM EDT [facility] RBC Count 3.69(L) 4.60 - 6.10 10*6/uL LAB HEMATOLOGY METHOD 06/25/2025 1:50 PM EDT [facility] HGB 11.0(L) 13.7 - 17.5 g/dL LAB HEMATOLOGY METHOD 06/25/2025 1:50 PM EDT [facility] HCT 32.9(L) 40.0 - 51.0 % LAB HEMATOLOGY METHOD 06/25/2025 1:50 PM EDT [facility] Platelet Count 127(L) 155 - 369 10*3/uL LAB HEMATOLOGY METHOD 06/25/2025 1:50 PM EDT [facility] MCV 89 79 - 98 fL LAB HEMATOLOGY METHOD 06/25/2025 1:50 PM EDT [facility] MCH 29.8 26.0 - 32.0 pg LAB HEMATOLOGY METHOD 06/25/2025 1:50 PM EDT [facility] MCHC 33.4 30.7 - 35.5 g/dL LAB HEMATOLOGY METHOD 06/25/2025 1:50 PM EDT [facility] RDW 13.7 11.5 - 14.5 % LAB HEMATOLOGY METHOD 06/25/2025 1:50 PM EDT [facility] MPV 11.2 8.8 - 12.5 fL LAB HEMATOLOGY METHOD 06/25/2025 1:50 PM EDT [facility] nRBC 0.0 <=0.0 per 100 WBCs LAB HEMATOLOGY METHOD 06/25/2025 1:50 PM EDT [facility] Blood Venous blood specimen / Unknown Venipuncture / Unknown 06/25/2025 1:21 PM EDT 06/25/2025 1:41 PM EDT Khushbu Gordon MD LAB BLOOD ORDERABLES Final Res ult Performing Organization Address [facility] [place] [address] * Jesús auris Surveillance by PCR (06/25/2025 1:14 PM EDT) Jesús auris PCR Result Not Detected Not Detected 06/26/2025 3:18 PM EDT [facility] Swab (Axilla and Groin) Non-blood Collection / Unknown 06/25/2025 1:14 PM EDT 06/25/2025 2:25 PM EDT Narrative [facility] - 06/26/2025 3:18 PM EDT This PCR assay was developed and its performance characteristics determined by [facility] as appropriate for clinical purposes. This assay has not been cleared or approved by the FDA, but is performed in a CLIA regulated laboratory that is qualified to perform high-complexity testing. Khushbu Gordon MD LAB MICROBIOLOGY - GENERAL ORD ERABLES Final Result Performing Organization Address [facility] [place] [address] * Multi Drug Resistance Test (06/25/2025 1:14 PM EDT) Culture No growth at day 1 06/26/2025 3:47 PM EDT [facility] Swab (Nares and Nereida Rectal) Non-blood Collection / Unknown 06/25/2025 1:14 PM EDT 06/25/2025 2:25 PM EDT Narrative [facility] - 06/26/2025 3:47 PM EDT This test was developed and its performance characteristics determined by the [facility]. Although the media is FDA-approved, it is not FDA-approved for all specimen types submitted. The FDA has determined that such clearance or approval is not necessary. This test is used for surveillance purposes. It should not be regarded as investigational or for research. The [facility] is certified under the Clinical Laboratory Improvement Amendments of 1988 (CLIA-88) as qualified to perform high complexity clinical laboratory testing. Khushbu Gordon MD LAB MICROBIOLOGY - GENERAL ORD ERABLES Final Result [facility] [address] [place] [address] * ECG Adult - Upon Admissoin to CVICU (06/25/2025 12:54 PM EDT) EKG DIAGNOSIS CLASS Abnormal MUSE ECG Ventricular Rate 114 BPM MUSE ECG QRSD Interval 86 ms MUSE ECG QT Interval 338 ms MUSE ECG QTC Interval 465 ms MUSE ECG R [place] 41 degrees MUSE ECG T Wave [place] 113 degrees MUSE ECG Diagnosis Atrial fibrillation with rapid ventricular response with occasional ventricular-pace d complexes (possible mis-sensing) MUSE ECG Diagnosis ST & T wave abnormality, consider lateral ischemia MUSE ECG Diagnosis MUSE ECG Diagnosis Recommend correlation with pacer interrogation MUSE ECG Diagnosis MUSE ECG Diagnosis Confirmed by James Weber ([id number]) on 06/25/2025 9:03:24 PM MUSE ECG 06/25/2025 12:5 4 PM EDT 06/25/2025 9:03 PM EDT Khushbu Gordon MD ECG ORDERABLES Final Result Performing Organization Address [facility] de Phone Number MUSE ECG * QPLUS (06/25/2025 11:56 AM EDT) Clot Time 157 104 - 166 Seconds 06/25/2025 12:15 PM EDT [facility] Clot Time Ratio 1.1 0.8 - 1.2 12:15 PM EDT [facility] Comment:The Clot Time Ratio (CTR) is a calculated parameter. CTR values of 0.8 1.2 are demonstrated to be typical of n ormal patient samples. Samples with CTR values > 1.4 are indicative of prolongation of the intrinsic pathway clotting time, likely due to the influence of unfractionated heparin. POCT Clot Stiffness 20.8 13.0 - 33.2 hectoPascals 06/25/2025 12:15 PM EDT [facility] Platelet Contribution to Clot Stiffnes 17.7 11.9 - 29.8 hectoPascals 06/25/2025 12:15 PM EDT [facility] Fibrinogen Contribution to Clot Stiffness 3.1 1.0 - 3.7 hectoPascals 06/25/2025 12:15 PM EDT [facility] Heparinase Clot Time 138 103 - 153 Seconds 06/25/2025 12:15 PM EDT [facility] Ship Carpenter ID Elder Huffman 06/25/2025 12:15 PM EDT [facility] Device ID Nely 06/25/2025 12:15 PM EDT [facility] Whole Blood 06/25/2025 11:5 6 AM EDT 06/25/2025 12:15 PM EDT us Khushbu Gordon MD LAB POINT OF CARE TE ST DOCKED DEVICE UNSOLICITED RESULTS Final Result Performing Organization Address City/State/[facility] de Phone Number [facility] [address] [place] [address] * (ABNORMAL) POCT arterial blood gas gem (06/25/2025 11:49 AM EDT) pH, Arterial 7.41 7.31 - 7.42 06/25/2025 11:56 AM EDT [facility] pCO2, Arterial 39 32 - 45 mm Hg 06/25/2025 11:56 AM EDT [facility] pO2, Arterial 228 >70 mm Hg 06/25/2025 11:56 AM EDT [facility] SO2, Arterial 99(H) 94 - 98 % 06/25/2025 11:56 AM EDT [facility] Base Excess, Arterial 0.1 -2 - 3 mmol/L 06/25/2025 11:56 AM EDT [facility] HCO3, Arterial 24.7 22 - 26 mmol/L 06/25/2025 11:56 AM EDT [facility] Total Hemoglobin, Arterial, Whole Blood 11.0(L) 13.7 - 17.5 g/dL 06/25/2025 11:56 AM EDT [facility] Hematocrit, Arterial 33.0(L) 40 - 51.0 % 06/25/2025 11:56 AM EDT [facility] Sodium, Arterial 138 136 - 145 mmol/L 06/25/2025 11:56 AM EDT [facility] Potassium, Arterial 3.5(L) 3.6 - 4.9 mmol/L 06/25/2025 11:56 AM EDT [facility] Chloride, Whole Blood 106 97 - 107 mmol/L 06/25/2025 11:56 AM EDT [facility] Glucose, Arterial 197(H) 74 - 99 mg/dL 06/25/2025 11:56 AM EDT [facility] Ionized Calcium, Arterial 4.1(L) 4.6 - 5.1 mg/dL 06/25/2025 11:56 AM EDT [facility] Lactate, Arterial 1.6 0.5 - 1.6 mmol/L 06/25/2025 11:56 AM EDT [facility] Body Temperature 37.0 Celsius 06/25/2025 11:56 AM EDT [facility] pH, Temp Corrected, Arterial 7.41 7.31 - 7.42 06/25/2025 11:56 AM EDT [facility] pCO2, Temp Corrected, Arterial 39 32 - 45 mm Hg 06/25/2025 11:56 AM EDT [facility] pO2, Temp Corrected, Arterial 228 >70 mm Hg 06/25/2025 11:56 AM EDT [facility] Ship Carpenter ID Orlando Harris 06/25/2025 11:56 AM EDT [facility] Blood Whole blood specimen / Unknown 06/25/2025 11:49 AM EDT 06/25/2025 11:56 AM EDT Khushbu Gordon MD LAB POINT OF CARE TE ST DOCKED DEVICE UNSOLICITED RESULTS Final Result [facility] [address] [place] [address] * POCT ACT (06/25/2025 11:40 AM EDT) ACT+ (HIGH RANGE) 115 68 - 600 Seconds 06/28/2025 5:10 PM EST [facility] Ship Carpenter ID Karla Hendrickson 06/28/2025 5:10 PM EST [facility] ACT Device ID [id number] 06/28/2025 5:10 PM EST [facility] Comment 06/28/2025 5:10 PM EST [facility] Comment: ACT performed by staff at point of care. Results are reported immediately to the physician or primary caregiver. The activated clotting time is performed on patients with diverse clinical characteristics and treatment histories. Therefore, expected values are variable and results must be interpreted in the context of each individual patient. Blood Venous blood specimen / Unknown 06/25/2025 11:40 AM EDT 06/28/2025 5:10 PM EST us Khushbu Gordon MD LAB POINT OF CARE TE ST DOCKED DEVICE UNSOLICITED RESULTS Final Result [facility] [address] LAB [address] [place] [address] * (ABNORMAL) POCT arterial blood gas gem (06/25/2025 11:02 AM EDT) pH, Arterial 7.46(H) 7.31 - 7.42 06/25/2025 11:04 AM EDT [facility] pCO2, Arterial 36 32 - 45 mm Hg 06/25/2025 11:04 AM EDT [facility] pO2, Arterial 271 >70 mm Hg 06/25/2025 11:04 AM EDT [facility] SO2, Arterial 100(H) 94 - 98 % 06/25/2025 11:04 AM EDT [facility] Base Excess, Arterial 1.8 -2 - 3 mmol/L 06/25/2025 11:04 AM EDT [facility] HCO3, Arterial 25.6 22 - 26 mmol/L 06/25/2025 11:04 AM EDT [facility] Total Hemoglobin, Arterial, Whole Blood 9.5(L) 13.7 - 17.5 g/dL 06/25/2025 11:04 AM EDT [facility] Hematocrit, Arterial 29.0(L) 40 - 51.0 % 06/25/2025 11:04 AM EDT [facility] Sodium, Arterial 139 136 - 145 mmol/L 06/25/2025 11:04 AM EDT [facility] Potassium, Arterial 3.9 3.6 - 4.9 mmol/L 06/25/2025 11:04 AM EDT [facility] Chloride, Whole Blood 106 97 - 107 mmol/L 06/25/2025 11:04 AM EDT [facility] Glucose, Arterial 196(H) 74 - 99 mg/dL 06/25/2025 11:04 AM EDT [facility] Ionized Calcium, Arterial 4.1(L) 4.6 - 5.1 mg/dL 06/25/2025 11:04 AM EDT [facility] Lactate, Arterial 0.9 0.5 - 1.6 mmol/L 06/25/2025 11:04 AM EDT [facility] Body Temperature 37.0 Celsius 06/25/2025 11:04 AM EDT [facility] pH, Temp Corrected, Arterial 7.46(H) 7.31 - 7.42 06/25/2025 11:04 AM EDT [facility] pCO2, Temp Corrected, Arterial 36 32 - 45 mm Hg 06/25/2025 11:04 AM EDT [facility] pO2, Temp Corrected, Arterial 271 >70 mm Hg 06/25/2025 11:04 AM EDT [facility] Ship Carpenter ID Karla Hendrickson 06/25/2025 11:04 AM EDT [facility] Blood Whole blood specimen / Unknown 06/25/2025 11:02 AM EDT 06/25/2025 11:04 AM EDT us Khushbu Gordon MD LAB POINT OF CARE TE ST DOCKED DEVICE UNSOLICITED RESULTS Final Result Performing Organization Address City/State/[facility] Phone Number [facility] [address] [place] [address] * POCT ACT (06/25/2025 10:57 AM EDT) ACT+ (HIGH RANGE) 521 68 - 600 Seconds 06/28/2025 5:10 PM EST [facility] Ship Carpenter ID Karla Hendrickson 06/28/2025 5:10 PM EST [facility] ACT Device ID [id number] 06/28/2025 5:10 PM EST [facility] Comment 06/28/2025 5:10 PM EST [facility] Comment: ACT performed by staff at point of care. Results are reported immediately to the physician or primary caregiver. The activated clotting time is performed on patients with diverse clinical characteristics and treatment histories. Therefore, expected values are variable and results must be interpreted in the context of each individual patient. Blood Venous blood specimen / Unknown 06/25/2025 10:57 AM EDT 06/28/2025 5:10 PM EST us Khushbu Gordon MD LAB POINT OF CARE TE ST DOCKED DEVICE UNSOLICITED RESULTS Final Result [facility] [address] [place] [address] * (ABNORMAL) POCT arterial blood gas gem (06/25/2025 10:33 AM EDT) pH, Arterial 7.43(H) 7.31 - 7.42 06/25/2025 10:35 AM EDT [facility] pCO2, Arterial 39 32 - 45 mm Hg 06/25/2025 10:35 AM EDT [facility] pO2, Arterial 286 >70 mm Hg 06/25/2025 10:35 AM EDT [facility] SO2, Arterial 100(H) 94 - 98 % 06/25/2025 10:35 AM EDT [facility] Base Excess, Arterial 1.5 -2 - 3 mmol/L 06/25/2025 10:35 AM EDT [facility] HCO3, Arterial 25.9 22 - 26 mmol/L 06/25/2025 10:35 AM EDT [facility] Total Hemoglobin, Arterial, Whole Blood 9.4(L) 13.7 - 17.5 g/dL 06/25/2025 10:35 AM EDT [facility] Hematocrit, Arterial 28.0(L) 40 - 51.0 % 06/25/2025 10:35 AM EDT [facility] Sodium, Arterial 139 136 - 145 mmol/L 06/25/2025 10:35 AM EDT [facility] Potassium, Arterial 3.9 3.6 - 4.9 mmol/L 06/25/2025 10:35 AM EDT [facility] Chloride, Whole Blood 105 97 - 107 mmol/L 06/25/2025 10:35 AM EDT [facility] Glucose, Arterial 202(H) 74 - 99 mg/dL 06/25/2025 10:35 AM EDT [facility] Ionized Calcium, Arterial 4.2(L) 4.6 - 5.1 mg/dL 06/25/2025 10:35 AM EDT [facility] Lactate, Arterial 0.6 0.5 - 1.6 mmol/L 06/25/2025 10:35 AM EDT [facility] Body Temperature 37.0 Celsius 06/25/2025 10:35 AM EDT [facility] pH, Temp Corrected, Arterial 7.43(H) 7.31 - 7.42 06/25/2025 10:35 AM EDT [facility] pCO2, Temp Corrected, Arterial 39 32 - 45 mm Hg 06/25/2025 10:35 AM EDT [facility] pO2, Temp Corrected, Arterial 286 >70 mm Hg 06/25/2025 10:35 AM EDT [facility] Ship Carpenter ID Karla Hendrickson 06/25/2025 10:35 AM EDT [facility] Blood Whole blood specimen / Unknown 06/25/2025 10:33 AM EDT 06/25/2025 10:35 AM EDT us Khushbu Gordon MD LAB POINT OF CARE TE ST DOCKED DEVICE UNSOLICITED RESULTS Final Result [facility] [address] [place] [address] * (ABNORMAL) POCT ACT (06/25/2025 10:27 AM EDT) ACT+ (HIGH RANGE) >600(H) 68 - 600 Seconds 06/28/2025 5:10 PM EST [facility] Ship Carpenter ID Karla Hendrickson 06/28/2025 5:10 PM EST [facility] ACT Device ID [id number] 06/28/2025 5:10 PM EST [facility] Comment 06/28/2025 5:10 PM EST [facility] Comment: ACT performed by staff at point of care. Results are reported immediately to the physician or primary caregiver. The activated clotting time is performed on patients with diverse clinical characteristics and treatment histories. Therefore, expected values are variable and results must be interpreted in the context of each individual patient. Blood Venous blood specimen / Unknown 06/25/2025 10:27 AM EDT 06/28/2025 5:10 PM EST Khushbu Gordon MD LAB POINT OF CARE TE ST DOCKED DEVICE UNSOLICITED RESULTS Final Result [facility] [address] LAB [address] [place] [address] * (ABNORMAL) POCT arterial blood gas gem (06/25/2025 10:03 AM EDT) pH, Arterial 7.40 7.31 - 7.42 06/25/2025 10:04 AM EDT [facility] pCO2, Arterial 44 32 - 45 mm Hg 06/25/2025 10:04 AM EDT [facility] pO2, Arterial 332 >70 mm Hg 06/25/2025 10:04 AM EDT [facility] SO2, Arterial 100(H) 94 - 98 % 06/25/2025 10:04 AM EDT [facility] Base Excess, Arterial 2.2 -2 - 3 mmol/L 06/25/2025 10:04 AM EDT [facility] HCO3, Arterial 27.3(H) 22 - 26 mmol/L 06/25/2025 10:04 AM EDT [facility] Total Hemoglobin, Arterial, Whole Blood 9.1(L) 13.7 - 17.5 g/dL 06/25/2025 10:04 AM EDT [facility] Hematocrit, Arterial 27.0(L) 40 - 51.0 % 06/25/2025 10:04 AM EDT [facility] Sodium, Arterial 139 136 - 145 mmol/L 06/25/2025 10:04 AM EDT [facility] Potassium, Arterial 3.8 3.6 - 4.9 mmol/L 06/25/2025 10:04 AM EDT [facility] Chloride, Whole Blood 104 97 - 107 mmol/L 06/25/2025 10:04 AM EDT [facility] Glucose, Arterial 176(H) 74 - 99 mg/dL 06/25/2025 10:04 AM EDT [facility] Ionized Calcium, Arterial 4.2(L) 4.6 - 5.1 mg/dL 06/25/2025 10:04 AM EDT [facility] Lactate, Arterial 0.6 0.5 - 1.6 mmol/L 06/25/2025 10:04 AM EDT [facility] Body Temperature 37.0 Celsius 06/25/2025 10:04 AM EDT [facility] pH, Temp Corrected, Arterial 7.40 7.31 - 7.42 06/25/2025 10:04 AM EDT [facility] pCO2, Temp Corrected, Arterial 44 32 - 45 mm Hg 06/25/2025 10:04 AM EDT [facility] pO2, Temp Corrected, Arterial 332 >70 mm Hg 06/25/2025 10:04 AM EDT [facility] Ship Carpenter ID Karla Hendrickson 06/25/2025 10:04 AM EDT [facility] Blood Whole blood specimen / Unknown 06/25/2025 10:03 AM EDT 06/25/2025 10:04 AM EDT Khushbu Gordon MD LAB POINT OF CARE TE ST DOCKED DEVICE UNSOLICITED RESULTS Final Result [facility] [address] [place] [address] * (ABNORMAL) POCT ACT (06/25/2025 9:55 AM EDT) ACT+ (HIGH RANGE) >600(H) 68 - 600 Seconds 06/28/2025 5:09 PM EST [facility] Ship Carpenter ID Karla Hendrickson 06/28/2025 5:09 PM EST [facility] ACT Device ID [id number] 06/28/2025 5:09 PM EST [facility] Comment 06/28/2025 5:09 PM EST [facility] Comment: ACT performed by staff at point of care. Results are reported immediately to the physician or primary caregiver. The activated clotting time is performed on patients with diverse clinical characteristics and treatment histories. Therefore, expected values are variable and results must be interpreted in the context of each individual patient. Blood Venous blood specimen / Unknown 06/25/2025 9:55 AM EDT 06/28/2025 5:09 PM EST us Khushbu Gordon MD LAB POINT OF CARE TE ST DOCKED DEVICE UNSOLICITED RESULTS Final Result Performing Organization Address City/[facility]/ZIP Co de Phone Number [facility] [address] LAB [address] [place] [address] * Surgical Pathology Exam (06/25/2025 9:50 AM EDT) Case Report Surgical Pathology Case: [id number] Authorizing Provider: Khushbu Gordon MD Collected: 06/25/2025 0950 Ordering Location: [facility]PER[facility] Received: 06/25/2025 1300 Pathologist: Fadi Hickey DO Specimen: Heart, posterior mitral valve leaflets 06/28/2025 1:49 PM EST [facility] Final Diagnosis POSTERIOR MITRAL VALVE LEAFLETS, REPAIR: - VALVULAR TISSUE WITH DEGENERATIVE CHANGES. - NEGATIVE FOR VEGETATIONS OR SIGNIFICANT INFLAMMATION. 06/28/2025 1:49 PM EST [facility] at 1349 EST Clinical Information Mitral valve insufficiency, unspecified etiology [I34.0] 06/28/2025 1:49 PM EST [facility] Gross Description A. POSTERIOR MITRAL VALVE LEAFLETS Received in formalin labeled posterior mitral valve leaflets is a portion of white-larios filiform fibrous tissue measuring 3.2 x 1.5 x 0.3 cm. The specimen is serially sectioned and entirely submitted in cassette A1. Cold Time: <1m Odessa Goodman 06/28/2025 1:49 PM EST [facility] Note: A resident was involved in the service. I attest I examined the relevant preparations for the specimens and confirmed the diagnosis or interpretation. 06/28/2025 1:49 PM EST [facility] Tissue Heart structure / Unknown 06/25/2025 9:50 AM EDT 06/25/2025 1:00 PM EDT Comment:Pre-op diagnosis: Mitral valve insufficiency, unspecified etiology [I34.0] us Khushbu Gordon MD LAB PATHOLOGY ORDERABLES Final Result [facility] [address] [place] [address] * (ABNORMAL) POCT arterial blood gas gem (06/25/2025 9:33 AM EDT) pH, Arterial 7.40 7.31 - 7.42 06/25/2025 9:34 AM EDT [facility] pCO2, Arterial 43 32 - 45 mm Hg 06/25/2025 9:34 AM EDT [facility] pO2, Arterial 282 >70 mm Hg 06/25/2025 9:34 AM EDT [facility] SO2, Arterial 100(H) 94 - 98 % 06/25/2025 9:34 AM EDT [facility] Base Excess, Arterial 1.6 -2 - 3 mmol/L 06/25/2025 9:34 AM EDT [facility] HCO3, Arterial 26.6(H) 22 - 26 mmol/L 06/25/2025 9:34 AM EDT [facility] Total Hemoglobin, Arterial, Whole Blood 8.5(L) 13.7 - 17.5 g/dL 06/25/2025 9:34 AM EDT [facility] Hematocrit, Arterial 26.0(L) 40 - 51.0 % 06/25/2025 9:34 AM EDT [facility] Sodium, Arterial 137 136 - 145 mmol/L 06/25/2025 9:34 AM EDT [facility] Potassium, Arterial 4.3 3.6 - 4.9 mmol/L 06/25/2025 9:34 AM EDT [facility] Chloride, Whole Blood 106 97 - 107 mmol/L 06/25/2025 9:34 AM EDT [facility] Glucose, Arterial 136(H) 74 - 99 mg/dL 06/25/2025 9:34 AM EDT [facility] Ionized Calcium, Arterial 3.9(L) 4.6 - 5.1 mg/dL 06/25/2025 9:34 AM EDT [facility] Lactate, Arterial 0.6 0.5 - 1.6 mmol/L 06/25/2025 9:34 AM EDT [facility] Body Temperature 37.0 Celsius 06/25/2025 9:34 AM EDT [facility] pH, Temp Corrected, Arterial 7.40 7.31 - 7.42 06/25/2025 9:34 AM EDT [facility] pCO2, Temp Corrected, Arterial 43 32 - 45 mm Hg 06/25/2025 9:34 AM EDT [facility] pO2, Temp Corrected, Arterial 282 >70 mm Hg 06/25/2025 9:34 AM EDT [facility] Ship Carpenter ID Karla Hendrickson 06/25/2025 9:34 AM EDT [facility] Blood Whole blood specimen / Unknown 06/25/2025 9:33 AM EDT 06/25/2025 9:34 AM EDT us Khushbu Gordon MD LAB POINT OF CARE TE ST DOCKED DEVICE UNSOLICITED RESULTS Final Result Performing Organization Address City/[facility] Co de Phone Number HEALTHCARE LAB [address] [place] [address] * POCT ACT (06/25/2025 9:26 AM EDT) ACT+ (HIGH RANGE) 575 68 - 600 Seconds 06/28/2025 5:09 PM EST [facility] Ship Carpenter ID Karla Hendrickson 06/28/2025 5:09 PM EST [facility] ACT Device ID [id number] 06/28/2025 5:09 PM EST [facility] Comment 06/28/2025 5:09 PM EST [facility] Comment: ACT performed by staff at point of care. Results are reported immediately to the physician or primary caregiver. The activated clotting time is performed on patients with diverse clinical characteristics and treatment histories. Therefore, expected values are variable and results must be interpreted in the context of each individual patient. Blood Venous blood specimen / Unknown 06/25/2025 9:26 AM EDT 06/28/2025 5:09 PM EST us Khushbu Gordon MD LAB POINT OF CARE TE ST DOCKED DEVICE UNSOLICITED RESULTS Final Result Performing Organization Address City/[facility] Co de Phone Number [facility] [address] [place] [address] * (ABNORMAL) POCT arterial blood gas gem (06/25/2025 9:07 AM EDT) pH, Arterial 7.41 7.31 - 7.42 06/25/2025 9:08 AM [facility] pCO2, Arterial 45 32 - 45 mm Hg 06/25/2025 9:08 AM [facility] pO2, Arterial 286 >70 mm Hg 06/25/2025 9:08 AM [facility] SO2, Arterial 100(H) 94 - 98 % 06/25/2025 9:08 AM [facility] Base Excess, Arterial 3.4(H) -2 - 3 mmol/L 06/25/2025 9:08 AM [facility] HCO3, Arterial 28.5(H) 22 - 26 mmol/L 06/25/2025 9:08 AM [facility] Total Hemoglobin, Arterial, Whole Blood 9.2(L) 13.7 - 17.5 g/dL 06/25/2025 9:08 AM [facility] Hematocrit, Arterial 28.0(L) 40 - 51.0 % 06/25/2025 9:08 AM [facility] Sodium, Arterial 139 136 - 145 mmol/L 06/25/2025 9:08 AM [facility] Potassium, Arterial 3.5(L) 3.6 - 4.9 mmol/L 06/25/2025 9:08 AM [facility] Chloride, Whole Blood 103 97 - 107 mmol/L 06/25/2025 9:08 AM [facility] Glucose, Arterial 125(H) 74 - 99 mg/dL 06/25/2025 9:08 AM [facility] Ionized Calcium, Arterial 4.1(L) 4.6 - 5.1 mg/dL 06/25/2025 9:08 AM [facility] Lactate, Arterial 0.6 0.5 - 1.6 mmol/L 06/25/2025 9:08 AM [facility] Body Temperature 37.0 Celsius 06/25/2025 9:08 AM [facility] pH, Temp Corrected, Arterial 7.41 7.31 - 7.42 06/25/2025 9:08 AM [facility] pCO2, Temp Corrected, Arterial 45 32 - 45 mm Hg 06/25/2025 9:08 AM [facility] pO2, Temp Corrected, Arterial 286 >70 mm Hg 06/25/2025 9:08 AM EDT [facility] Ship Carpenter ID Karla Hendrickson 06/25/2025 9:08 AM EDT [facility] Blood Whole blood specimen / Unknown 06/25/2025 9:07 AM EDT 06/25/2025 9:08 AM EDT Khushbu Gordon MD LAB POINT OF CARE TE ST DOCKED DEVICE UNSOLICITED RESULTS Final Result [facility] [address] [place] [address] * POCT ACT (06/25/2025 9:02 AM EDT) ACT+ (HIGH RANGE) 544 68 - 600 Seconds 06/28/2025 5:09 PM EST [facility] Ship Carpenter ID Karla Hendrickson 06/28/2025 5:09 PM EST [facility] ACT Device ID [id number] 06/28/2025 5:09 PM EST [facility] Comment 06/28/2025 5:09 PM EST [facility] Comment: ACT performed by staff at point of care. Results are reported immediately to the physician or primary caregiver. The activated clotting time is performed on patients with diverse clinical characteristics and treatment histories. Therefore, expected values are variable and results must be interpreted in the context of each individual patient. Blood Venous blood specimen / Unknown 06/25/2025 9:02 AM EDT 06/28/2025 5:09 PM EST us Khushbu Gordon MD LAB POINT OF CARE TE ST DOCKED DEVICE UNSOLICITED RESULTS Final Result Performing Organization Address City/[facility]/ZIP Co de Phone Number [facility] [address] [facility] [address] [place] [address] * (ABNORMAL) POCT arterial blood gas gem (06/25/2025 8:47 AM EDT) pH, Arterial 7.35 7.31 - 7.42 06/25/2025 8:49 AM EDT [facility] pCO2, Arterial 51(H) 32 - 45 mm Hg 06/25/2025 8:49 AM [facility] pO2, Arterial 114 >70 mm Hg 06/25/2025 8:49 AM [facility] SO2, Arterial 100(H) 94 - 98 % 06/25/2025 8:49 AM [facility] Base Excess, Arterial 1.9 -2 - 3 mmol/L 06/25/2025 8:49 AM [facility] HCO3, Arterial 28.2(H) 22 - 26 mmol/L 06/25/2025 8:49 AM [facility] Total Hemoglobin, Arterial, Whole Blood 11.3(L) 13.7 - 17.5 g/dL 06/25/2025 8:49 AM [facility] Hematocrit, Arterial 34.0(L) 40 - 51.0 % 06/25/2025 8:49 AM [facility] Sodium, Arterial 139 136 - 145 mmol/L 06/25/2025 8:49 AM [facility] Potassium, Arterial 3.6 3.6 - 4.9 mmol/L 06/25/2025 8:49 AM [facility] Chloride, Whole Blood 106 97 - 107 mmol/L 06/25/2025 8:49 AM [facility] Glucose, Arterial 117(H) 74 - 99 mg/dL 06/25/2025 8:49 AM [facility] Ionized Calcium, Arterial 4.6 4.6 - 5.1 mg/dL 06/25/2025 8:49 AM [facility] Lactate, Arterial 0.5 0.5 - 1.6 mmol/L 06/25/2025 8:49 AM [facility] Body Temperature 37.0 Celsius 06/25/2025 8:49 AM [facility] pH, Temp Corrected, Arterial 7.35 7.31 - 7.42 06/25/2025 8:49 AM [facility] pCO2, Temp Corrected, Arterial 51(H) 32 - 45 mm Hg 06/25/2025 8:49 AM [facility] pO2, Temp Corrected, Arterial 114 >70 mm Hg 06/25/2025 8:49 AM [facility] Ship Carpenter ID Short, Karla 06/25/2025 8:49 AM EDT [facility] Blood Whole blood specimen / Unknown 06/25/2025 8:47 AM EDT 06/25/2025 8:49 AM EDT us Khushbu Gordon MD LAB POINT OF CARE TE ST DOCKED DEVICE UNSOLICITED RESULTS Final Result Performing Organization Address [facility] de Phone Number HEALTHCARE LAB [address] [place] [address] * POCT ACT (06/25/2025 8:41 AM EDT) ACT+ (HIGH RANGE) 578 68 - 600 Seconds 06/28/2025 5:10 PM EST [facility] Ship Carpenter ID Karla Hendrickson 06/28/2025 5:10 PM EST [facility] ACT Device ID [id number] 06/28/2025 5:10 PM EST [facility] Comment 06/28/2025 5:10 PM EST [facility] Comment: ACT performed by staff at point of care. Results are reported immediately to the physician or primary caregiver. The activated clotting time is performed on patients with diverse clinical characteristics and treatment histories. Therefore, expected values are variable and results must be interpreted in the context of each individual patient. Blood Venous blood specimen / Unknown 06/25/2025 8:41 AM EDT 06/28/2025 5:10 PM EST us Khushbu Gordon MD LAB POINT OF CARE TE ST DOCKED DEVICE UNSOLICITED RESULTS Final Result Performing Organization Address [facility] Phone Number HEALTHCARE LAB [address] LAB [address] [place] [address] * (ABNORMAL) POCT arterial blood gas gem (06/25/2025 7:53 AM EDT) pH, Arterial 7.42 7.31 - 7.42 06/25/2025 7:56 AM EDT [facility] pCO2, Arterial 44 32 - 45 mm Hg 06/25/2025 7:56 AM EDT [facility] pO2, Arterial 252 >70 mm Hg 06/25/2025 7:56 AM EDT [facility] SO2, Arterial 99(H) 94 - 98 % 06/25/2025 7:56 AM [facility] Base Excess, Arterial 3.5(H) -2 - 3 mmol/L 06/25/2025 7:56 AM [facility] HCO3, Arterial 28.5(H) 22 - 26 mmol/L 06/25/2025 7:56 AM [facility] Total Hemoglobin, Arterial, Whole Blood 11.6(L) 13.7 - 17.5 g/dL 06/25/2025 7:56 AM [facility] Hematocrit, Arterial 35.0(L) 40 - 51.0 % 06/25/2025 7:56 AM [facility] Sodium, Arterial 138 136 - 145 mmol/L 06/25/2025 7:56 AM [facility] Potassium, Arterial 3.6 3.6 - 4.9 mmol/L 06/25/2025 7:56 AM [facility] Chloride, Whole Blood 106 97 - 107 mmol/L 06/25/2025 7:56 AM [facility] Glucose, Arterial 107(H) 74 - 99 mg/dL 06/25/2025 7:56 AM [facility] Ionized Calcium, Arterial 4.6 4.6 - 5.1 mg/dL 06/25/2025 7:56 AM [facility] Lactate, Arterial 0.6 0.5 - 1.6 mmol/L 06/25/2025 7:56 AM [facility] Body Temperature 37.0 Celsius 06/25/2025 7:56 AM [facility] pH, Temp Corrected, Arterial 7.42 7.31 - 7.42 06/25/2025 7:56 AM [facility] pCO2, Temp Corrected, Arterial 44 32 - 45 mm Hg 06/25/2025 7:56 AM [facility] pO2, Temp Corrected, Arterial 252 >70 mm Hg 06/25/2025 7:56 AM [facility] Ship Carpenter ID Orlando Harris 06/25/2025 7:56 AM [facility] Blood Whole blood specimen / Unknown 06/25/2025 7:53 AM EDT 06/25/2025 7:56 AM EDT Khushbu Gordon MD LAB POINT OF CARE TE ST DOCKED DEVICE UNSOLICITED RESULTS Final Result Performing Organization Address City/[facility] Co de Phone Number [facility] [address] [place] [address] * POCT ACT (06/25/2025 7:47 AM EDT) [facility] ACT+ (HIGH RANGE) 87 68 - 600 Seconds 06/28/2025 5:10 PM EST [facility] Ship Carpenter ID James Merlos 06/28/2025 5:10 PM EST [facility]ARE [facility] ACT Device ID [id number] 06/28/2025 5:10 PM EST [facility] Comment 06/28/2025 5:10 PM EST [facility] Comment: ACT performed by staff at point of care. Results are reported immediately to the physician or primary caregiver. The activated clotting time is performed on patients with diverse clinical characteristics and treatment histories. Therefore, expected values are variable and results must be interpreted in the context of each individual patient. Blood Venous blood specimen / Unknown 06/25/2025 7:47 AM EDT 06/28/2025 5:10 PM EST Khushbu Gordon MD LAB POINT OF CARE TE ST DOCKED DEVICE UNSOLICITED RESULTS Final Result Performing Organization Address [facility] de Phone Number HEALTHCARE LAB [address] LAB [address] [place] [address] * (ABNORMAL) POCT glucose meter (06/25/2025 6:37 AM EDT) [facility] POCT Glucose 102(H) 74 - 99 mg/dL 06/25/2025 6:38 AM EDT [facility] Comment:Accuracy of a glucos e result obtained from a capillary whole blood specimen relies upon adequate, non-compromised capillary blood flow. If the capillary glucose result is not consistent with the patient's clinical signs and symptoms, glucose testing should be repeated with either an arterial or venous sample on the glucometer or sent to the main labortory for testing. Comment 06/25/2025 6:38 AM EDT [facility] Ship Carpenter ID Kenzie Iqbal 06/25/2025 6:38 AM EDT [facility] Device ID [id number] 06/25/2025 6:38 AM EDT [facility] Specimen Type POC Venous 06/25/2025 6:38 AM EDT [facility] Blood Venous blood specimen / Unknown 06/25/2025 6:37 AM EDT 06/25/2025 6:38 AM EDT us Khushbu Gordon MD LAB POINT OF CARE TE ST DOCKED DEVICE UNSOLICITED RESULTS Final Result Performing Organization Address City/[facility]/ZIP Co de Phone Number [facility] [address] [place] [address] * Type and Screen (06/25/2025 6:36 AM EDT) ABO/Rh A Positive 06/25/2025 6:50 AM EDT [facility] Antibody Screen Negative 06/25/2025 6:50 AM EDT [facility] Specimen Expiration 06/29/2025 00:59 06/25/2025 6:50 AM EDT [facility] Blood Venous blood specimen / Unknown Venipuncture / Unknown 06/25/2025 6:36 AM EDT 06/25/2025 6:50 AM EDT us Khushbu Gordon MD LAB BLOOD BANK TEST ORDERABLES Final Result Performing Organization Address [facility] de Phone Number BLOOD BANK [address] [place] [address] documented in this encounter Visit Diagnoses Diagnosis Mitral valve insufficiency, unspecified etiology Mitral valve disease Other and unspecified mitral valve diseases S/P MVR (mitral valve repair) Mitral valve insufficiency, unspecified etiology Mitral valve disease Other and unspecified mitral valve diseases HTN (hypertension) Unspecified essential hypertension COPD (chronic obstructive pulmonary disease) Chronic airway obstruction, not elsewhere classified Gastroesophageal reflux disease Esophageal reflux Nonrheumatic mitral valve regurgitation TIA (transient ischemic attack) Unspecified transient cerebral ischemia BMI 28.0-28.9,adult S/P MVR (mitral valve repair) On mechanically assisted ventilation (CMS/HCC) Postoperative pain Other acute postoperative pain Atrial fibrillation (CMS/HCC) Atrial fibrillation documented in this encounter Admitting Diagnoses Diagnosis Mitral valve insufficiency Mitral valve disorders Mitral valve disease Other and unspecified mitral valve diseases Mitral valve insufficiency, unspecified etiology documented in this encounter Administered Medications Inactive Administered Medications - up to 3 most recent administrations Medication Order MAR Action Action Date Dose Rate Site acetaminophen (Tylenol) tablet 1,000 mg 1,000 mg, Oral, Every 6 hours scheduled, First dose (after last modification) on 06/28/25 at 1215, Until Discontinued, Routine, Recovery(Phase II-Outpatient)/On Unit(Inpatient) Given 06/29/2025 6:13 AM EST 1,000 mg Given 06/29/2025 12:31 AM EST 1,000 mg Given 06/28/2025 6:05 PM EST 1,000 mg amiodarone (Nexterone) 150-4.21 MG/100ML-% IVPB - Pyxis Override Pull 1 dose, Starting on Sat06/25/25 at 1300, Until Sat06/25/25 at 1326 amiodarone (Nexterone) infusion 1.8 mg/mL 1 mg/min (33.3333 mL/hr, rounded to 33.3 mL/hr), 1.8 mg/mL, Intravenous, Continuous, Starting on Sat06/25/25 at 1345, Until Sat06/25/25 at 1933, Routine Rate/Dose Verify 06/25/2025 7:00 PM EDT 1 mg/min 33.3 mL/hr Rate/Dose Verify 06/25/2025 6:00 PM EDT 1 mg/min 33.3 mL /hr Rate/Dose Verify 06/25/2025 5:00 PM EDT 1 mg/min 33.3 mL /hr amiodarone (Nexterone) infusion 1.8 mg/mL 0.5 mg/min (16.6667 mL/hr, rounded to 16.67 mL/hr), 1.8 mg/mL, Intravenous, Continuous, Starting on Sat06/25/25 at 1949, Until Sat06/26/25 at 1347, Routine Rate/Dose Verify 06/26/2025 1:00 PM EDT 0.5 mg/min 16.67 mL/hr Rate/Dose Verify 06/26/2025 12:00 PM EDT 0.5 mg/min 16.67 mL/hr Rate/Dose Verify 06/26/2025 11:00 AM EDT 0.5 mg/min 16.67 mL/hr amiodarone (Nexterone) IVPB 150 mg 150 mg, Intravenous, Once, 1 dose, On Sat06/25/25 at 1345, Routine New Bag 06/25/2025 1:16 PM EDT 150 mg 600 mL/hr amiodarone (Pacerone) tablet 200 mg 200 mg, Oral, Daily, First dose on Sat07/03/25 at 0900, Until Discontinued, Routine amiodarone (Pacerone) tablet 400 mg 400 mg, Oral, 2 times daily, 14 doses, First dose on Sat06/26/25 at 1415, Last dose on Sat07/02/25 at 2100, Routine Given 06/29/2025 9:14 AM EST 400 mg Given 06/28/2025 9:06 PM EST 400 mg Given 06/28/2025 9:04 AM EST 400 mg apixaban (Eliquis) tablet 5 mg 5 mg, Oral, 2 times daily, First dose on Sat06/29/25 at 0915, Until Discontinued, Routine Given 06/29/2025 9:14 AM EST 5 mg aspirin chewable tablet 81 mg 81 mg, Oral, Daily, First dose on Sat06/26/25 at 0900, Until Discontinued, Recovery(Phase II-Outpatient)/On Unit(Inpatient) Given 06/28/2025 9:04 AM EST 81 mg Given 06/27/2025 8:00 AM EST 81 mg Given 06/26/2025 8:01 AM EDT 81 mg atorvastatin (Lipitor) tablet 20 mg 20 mg, Oral, Nightly, First dose on Sat06/25/25 at 2100, Until Discontinued, Recovery(Phase II-Outpatient)/On Unit(Inpatient) Given 06/25/2025 8:10 PM EDT 20 mg atorvastatin (Lipitor) tablet 80 mg 80 mg, Oral, Nightly, First dose (after last modification) on Sat06/26/25 at 2100, Until Discontinued, Recovery(Phase II-Outpatient)/On Unit(Inpatient) Given 06/28/2025 9:06 PM EST 80 mg Given 06/27/2025 9:38 PM EST 80 mg Given 06/26/2025 9:24 PM EDT 80 mg bisacodyl (Dulcolax) suppository 10 mg 10 mg, Rectal, Daily PRN, Starting on Sat06/28/25 at 1119, Until Sat06/29/25 at 1334, Routine, Recovery(Phase II-Outpatient)/On Unit(Inpatient), constipation calcium chloride 10 % injection 1 g 1 g, Intravenous, Once, 1 dose, On Sat06/27/25 at 0530, STAT Given 06/27/2025 4:48 AM EST 1 g calcium gluconate 1 g in sodium chloride 0.9% 100 mL IVPB (vial adapter required) 1 g, Intravenous, Once, 1 dose, On Sat06/27/25 at 0145, at 240 mL/hr, Administer over 30 Minutes, Routine New Bag 06/27/2025 1:12 AM EDT 1 g 240 mL/hr ceFAZolin (Ancef) injection 2 g 2 g, Intravenous, Every 8 hours, 3 doses, First dose on Sat06/25/25 at 1345, Last dose on 06/26/25 at 0545, Routine, Recovery(Phase II-Outpatient)/On Unit(Inpatient) Given 06/26/2025 5:32 AM EDT 2 g Given 06/25/2025 8:10 PM EDT 2 g Given 06/25/2025 1:53 PM EDT 2 g clevidipine (Cleviprex) 0.5 MG/ML infusion 1 mg/hr (2 mL/hr), Intravenous, Titrated, Starting on Sat06/25/25 at 1415, Until Sat06/26/25 at 1545, STATIndications:Hypertension Rate/Dose Change 06/25/2025 5:28 PM EDT 2 mg/hr 4 mL/hr Rate/Dose Change 06/25/2025 5:15 PM EDT 4 mg/hr 8 mL/hr Rate/Dose Change 06/25/2025 5:00 PM EDT 6 mg/hr 12 mL/h r clopidogrel (Plavix) tablet 75 mg 75 mg, Oral, Daily, First dose on Sat06/29/25 at 0915, Until Discontinued, Routine Given 06/29/2025 9:14 AM EST 75 mg docusate sodium (Colace) capsule 100 mg 100 mg, Oral, 2 times daily, First dose on Sat06/25/25 at 1345, Until Discontinued, Routine, Recovery(Phase II-Outpatient)/On Unit(Inpatient) Given 06/29/2025 9:14 AM EST 100 mg Given 06/28/2025 9:06 PM EST 100 mg Given 06/28/2025 9:04 AM EST 100 mg furosemide (Lasix) injection 40 mg 40 mg, Intravenous, Once, 1 dose, On 06/26/25 at 0500, Routine Given 06/26/2025 5:32 AM EDT 40 mg furosemide (Lasix) injection 40 mg 40 mg, Intravenous, Once, 1 dose, On 06/26/25 at 1930, Routine Given 06/26/2025 7:59 PM EDT 40 mg furosemide (Lasix) tablet 40 mg 40 mg, Oral, Daily, First dose on 06/28/25 at 1215, Until Discontinued, Routine, Recovery(Phase II-Outpatient)/On Unit(Inpatient) Given 06/29/2025 9:14 AM EST 40 mg Given 06/28/2025 11:34 AM EST 40 mg heparin (porcine) injection 5,000 Units 5,000 Units, Subcutaneous, Every 8 hours scheduled, First dose on 06/26/25 at 0600, Until Discontinued, Routine, Recovery(Phase II-Outpatient)/On Unit(Inpatient) Given 06/29/2025 6:13 AM EST 5,000 Units Left Lower Abdomen Given 06/28/2025 9:06 PM EST 5,000 Units L eft Lower Abdomen Given 06/28/2025 3:31 PM EST 5,000 Units L eft Lower Abdomen HYDROmorphone (Dilaudid) injection 0.5 mg 0.5 mg, Intravenous, Every 2 hour PRN, Starting on Sat06/25/25 at 1259, Until Sat06/28/25 at 0938, Routine, Recovery(Phase II-Outpatient)/On Unit(Inpatient), severe pain, if oxycodone does not decrease pain score by 2 points after 45 min, no enteral access and / or per provider request for bedside procedure Given 06/27/2025 4:31 PM EST 0.5 mg Given 06/27/2025 10:55 AM EST 0.5 mg Given 06/27/2025 7:47 AM EST 0.5 mg lidocaine (Lidoderm) 5 % patch 1 patch 1 patch, Apply externally, Every 24 hours PRN, Starting on Sat06/27/25 at 0833, Until Sat06/29/25 at 1334, Administer over 12 Hours, Routine, Mild + Pain > or =1: CPOT, DVPRS, FLACC, PAINAD, NPASS, NRS, [place] Faces; > or =2: NIPS magnesium hydroxide (Milk of Magnesia) 400 MG/5ML suspension 30 mL 30 mL, Oral, Daily PRN, Starting on Sat06/28/25 at 1119, Until Sat06/29/25 at 1334, Routine, Recovery(Phase II-Outpatient)/On Unit(Inpatient), constipation magnesium sulfate IVPB 2 g 2 g, Intravenous, Once, 1 dose, On Sat06/27/25 at 0130, Routine New Bag 06/27/2025 1:03 AM EDT 2 g 25 mL/hr methocarbamol (Robaxin) tablet 500 mg 500 mg, Oral, 4 times daily, First dose on Sat06/27/25 at 0045, Until Discontinued, Routine Given 06/28/2025 9:04 AM EST 500 mg Given 06/27/2025 9:38 PM EST 500 mg Given 06/27/2025 5:12 PM EST 500 mg methocarbamol (Robaxin) tablet 750 mg 750 mg, Oral, 4 times daily, First dose (after last modification) on Sat06/28/25 at 1400, Until Discontinued, Routine, Recovery(Phase II-Outpatient)/On Unit(Inpatient) Given 06/29/2025 9:14 AM EST 750 mg Given 06/28/2025 9:06 PM EST 750 mg Given 06/28/2025 6:05 PM EST 750 mg metoprolol tartrate (Lopressor) split tablet 12.5 mg 12.5 mg, Oral, 2 times daily, First dose on 06/26/25 at 2100, Until Discontinued, Routine Given 06/27/2025 8:00 AM EST 12.5 mg Given 06/26/2025 9:24 PM EDT 12.5 mg metoprolol tartrate (Lopressor) tablet 25 mg 25 mg, Oral, 2 times daily, First dose (after last modification) on 06/27/25 at 2100, Until Discontinued, Routine Given 06/29/2025 9:13 AM EST 25 mg Given 06/28/2025 9:06 PM EST 25 mg Given 06/28/2025 9:04 AM EST 25 mg mupirocin (Bactroban) 2 % ointment 1 Application Each Nostril, 2 times daily, 10 doses, First dose on Sat06/25/25 at 1345, Last dose on Sat06/29/25 at 2100, Routine Given 06/29/2025 9:14 AM EST 1 Application Given 06/28/2025 9:06 PM EST 1 Application Given 06/28/2025 9:04 AM EST 1 Application norepinephrine 8 mg/250 mL (0.032 mg/mL) infusion 0-0.1 mcg/kg/min 89.3 kg Dosing weight (0-16.7438 mL/hr, rounded to 0-16.74 mL/hr), 0.032 mg/mL, Intravenous, Titrated, Starting on Sat06/25/25 at 1415, Until Sat06/26/25 at 1545, STAT Continued from OR 06/25/2025 12:50 PM EDT 0.01 mcg/kg/min 1.67 mL/hr ondansetron (Zofran) injection 4 mg 4 mg, Intravenous, Every 6 hours PRN, Starting on Sat06/25/25 at 1259, Until Sat06/29/25 at 1334, Routine, Recovery(Phase II-Outpatient)/On Unit(Inpatient), nausea, vomiting oxyCODONE (Roxicodone) immediate release tablet 10 mg 10 mg, Oral, Every 6 hours PRN, Starting on Sat06/25/25 at 1259, Until Sat06/29/25 at 1334, Routine, Recovery(Phase II-Outpatient)/On Unit(Inpatient), severe pain Given 06/28/2025 9:06 PM EST 10 mg Given 06/28/2025 9:04 AM EST 10 mg Given 06/27/2025 9:37 PM EST 10 mg oxyCODONE (Roxicodone) immediate release tablet 10 mg 10 mg, Oral, Once, 1 dose, On Sat06/28/25 at 1215, Routine, Recovery(Phase II-Outpatient)/On Unit(Inpatient) Given 06/28/2025 11:35 AM EST 10 mg oxyCODONE (Roxicodone) immediate release tablet 5 mg 5 mg, Oral, Every 6 hours PRN, Starting on Sat06/25/25 at 1259, Until Sat06/29/25 at 1334, Routine, Recovery(Phase II-Outpatient)/On Unit(Inpatient), Moderate/Severe Pain > or =3: CPOT; > or =4: FLACC, PAINAD, NPASS, NRS, [place] Faces; > or =5: DVPRS, NIPS Given 06/29/2025 9:13 AM EST 5 mg Given 06/26/2025 8:00 AM EDT 5 mg pantoprazole (Protonix) EC tablet 40 mg 40 mg, Oral, Daily, First dose on 06/27/25 at 0900, Until Discontinued, Routine Given 06/29/2025 9:14 AM EST 40 mg Given 06/28/2025 9:05 AM EST 40 mg Given 06/27/2025 8:00 AM EST 40 mg pantoprazole (Protonix) injection 40 mg 40 mg, Intravenous, Daily, First dose on 06/26/25 at 0900, Until Discontinued, Routine, Recovery(Phase II-Outpatient)/On Unit(Inpatient) Given 06/26/2025 8:01 AM EDT 40 mg polyethylene glycol (Miralax) packet 17 g 17 g, Oral, 2 times daily, First dose (after last modification) on 06/26/25 at 2100, Until Discontinued, Routine, Recovery(Phase II-Outpatient)/On Unit(Inpatient) Given 06/28/2025 9:04 AM EST 17 g Given 06/27/2025 9:38 PM EST 17 g Given 06/27/2025 8:00 AM EST 17 g potassium chloride CR (Klor-Con) ER tablet 40 mEq 40 mEq, Oral, Once, 1 dose, On Sat06/29/25 at 0930, Routine Given 06/29/2025 9:13 AM EST 40 mEq potassium chloride IVPB 20 mEq 20 mEq, Intravenous, Every 1 hour, 4 doses, First dose on Sat06/25/25 at 1530, Last dose on Sat06/25/25 at 1830, RoutineIndications:Hypokalemia New Bag 06/25/2025 6:03 PM EDT 20 m Eq 50 mL/hr New Bag 06/25/2025 5:11 PM EDT 20 mEq 50 mL/hr New Bag 06/25/2025 3:48 PM EDT 20 mEq 50 mL/hr Povidone-Iodine 5 % swab solution 1 Application Nasal, Once, 1 dose, On Sat06/25/25 at 0700, Routine Given 06/25/2025 6:37 AM EDT 1 Application propofol (Diprivan) infusion 10 mg/mL Intravenous, Continuous PRN, Starting on Sat06/25/25 at 1217, Until Sat06/25/25 at 1415, Routine Rate/Dose Verify 06/25/2025 2:00 PM EDT 20 mcg/kg/min 10.72 mL/hr New Bag 06/25/2025 12:17 PM EDT 20 mcg/kg/min 10.716 mL /hr propofol (Diprivan) infusion 10 mg/mL 10-50 mcg/kg/min 89.3 kg Dosing weight (5.358-26.79 mL/hr, rounded to 5.36-26.79 mL/hr), Intravenous, Titrated, Starting on Sat06/25/25 at 1415, Until 06/26/25 at 1545, Routine Rate/Dose Verify 06/25/2025 9:00 PM EDT 10 mcg/kg/min 5.36 mL/hr Rate/Dose Verify 06/25/2025 8:00 PM EDT 10 mcg/kg/min 5.36 mL/hr Rate/Dose Verify 06/25/2025 7:00 PM EDT 10 mcg/kg/min 5.36 mL/hr senna (Senokot) tablet 17.2 mg 17.2 mg, Oral, Nightly, First dose on Sat06/25/25 at 2100, Until Discontinued, Routine, Recovery(Phase II-Outpatient)/On Unit(Inpatient) Given 06/25/2025 8:10 PM EDT 17.2 mg senna (Senokot) tablet 17.2 mg 17.2 mg, Oral, 2 times daily, First dose (after last modification) on 06/26/25 at 2100, Until Discontinued, Routine, Recovery(Phase II-Outpatient)/On Unit(Inpatient) Given 06/28/2025 9:04 AM EST 17.2 mg Given 06/27/2025 9:38 PM EST 17.2 mg Given 06/27/2025 8:00 AM EST 17.2 mg sodium chloride 0.9 % flush 10 mL 10 mL, Intravenous, Every 12 hours, First dose on Sat06/25/25 at 0700, Until Discontinued, Routine, Holding - Preprocedure Given 06/25/2025 6:44 AM EDT 10 mL sodium chloride 0.9 % flush 10 mL 10 mL, Intravenous, Every 12 hours, First dose on Sat06/25/25 at 1400, Until Discontinued, Routine Given 06/29/2025 1:11 AM EST 10 mL Given 06/28/2025 3:21 PM EST 10 mL Given 06/27/2025 1:20 PM EST 10 mL sodium chloride 0.9 % flush 10 mL 10 mL, Intravenous, Every 1 hour PRN, Starting on Sat06/25/25 at 1306, Until Tu06/29/25 at 1334, Routine, Flush Before and After EVERY dose of medication. sodium chloride 0.9 % flush 20 mL 20 mL, Intravenous, Every 1 hour PRN, Starting on Sat06/25/25 at 1306, Until Sat06/29/25 at 1334, Routine, After blood draws and if any blood seen in tubing. Sodium Phosphate-NaCl IVPB 15 mmol 15 mmol, Intravenous, Once, 1 dose, On 06/27/25 at 0145, Routine Given 06/27/2025 2:10 AM EST 15 mmol 25 mL/hr vancomycin in NS (Vancocin) IVPB 1,250 mg 1,250 mg (rounded from 1,329 mg = 15 mg/kg 88.6 kg), Intravenous, Once, 1 dose, On Sat06/25/25 at 0700, at 200 mL/hr, STAT New Bag 06/25/2025 6:37 AM EDT 1,250 mg 200 mL/hr documented in this encounter Active and Recently Administered Medications Due to Daylight Saving Time, this section may contain times in both EDT and EST. Scheduled Medication Order 06/27/2025 06/28/2025 06/29/2025 acetaminophen (Tylenol) tablet 1,000 mg 1,000 mg, Oral, Every 6 hours scheduled, First dose (after last modification) on 06/28/25 at 1215, Until Discontinued, Routine, Recovery(Phase II-Outpatient)/On Unit(Inpatient) 1134 (Given - Provider: Sophie Amin RN)1805 (Given - Provider: Sophie Amin RN) 0031 (Given - Provider: Sim Farrell RN)0613 (Given - Provider: Sim Farrell RN)1200 (Canceled Entry - Provider: Automatic Discharge Provider - Comment: Automatically canceled at discontinue of medication order) amiodarone (Pacerone) tablet 200 mg(Linked Group 1) 200 mg, Oral, Daily, First dose on Sat07/03/25 at 0900, Until Discontinued, Routine amiodarone (Pacerone) tablet 400 mg(Linked Group 1) 400 mg, Oral, 2 times daily, 14 doses, First dose on Sat06/26/25 at 1415, Last dose on Sat07/02/25 at 2100, Routine 0800 (Given - Provider: Betito Gold RN)2136 (Given - Provider: John Madrid RN) 09 (Given - Provider: Sophie Amin RN)2105 (Given - Provider: Sim Farrell, KIRILL) 09 (Given - Provider: Sophie Amin RN) apixaban (Eliquis) tablet 5 mg 5 mg, Oral, 2 times daily, First dose on Sat06/29/25 at 0915, Until Discontinued, Routine 0914 (Given - Provid er: Sophie Amin RN) aspirin chewable tablet 81 mg (CANCELED) 81 mg, Oral, Daily, First dose on Sat06/26/25 at 0900, Until Discontinued, Recovery(Phase II-Outpatient)/On Unit(Inpatient) 0800 (Given - Provider: Betito Gold RN) 09 (Given - Provider: Sophie Amin RN) atorvastatin (Lipitor) tablet 80 mg 80 mg, Oral, Nightly, First dose (after last modification) on Sat06/26/25 at 2100, Until Discontinued, Recovery(Phase II-Outpatient)/On Unit(Inpatient) 2137 (Given - Provider: John Madrid RN) 2105 (Given - Provider: Sim Farrell RN) calcium chloride 10 % injection 1 g (COMPLETED) 1 g, Intravenous, Once, 1 dose, On Sat06/27/25 at 0530, STAT 0448 (Given - Provider: Jde Contreras RN) calcium gluconate 1 g in sodium chloride 0.9% 100 mL IVPB (vial adapter required) (COMPLETED) 1 g, Intravenous, Once, 1 dose, On Sat06/27/25 at 0145, at 240 mL/hr, Administer over 30 Minutes, Routine 0112 (New Bag - Provider: Jed Contreras RN) clopidogrel (Plavix) tablet 75 mg 75 mg, Oral, Daily, First dose on Sat06/29/25 at 0915, Until Discontinued, Routine 0914 (Given - Provid er: Sophie Amin RN) docusate sodium (Colace) capsule 100 mg 100 mg, Oral, 2 times daily, First dose on Sat06/25/25 at 1345, Until Discontinued, Routine, Recovery(Phase II-Outpatient)/On Unit(Inpatient) 0800 (Given - Provider: Betito Gold RN)2138 (Given - Provider: John Madrid RN) 0904 (Given - Provider: Sophie Amin RN)2106 (Given - Provider: Sim Farrell, KIRILL) 0914 (Given - Provider: Sophie Amin RN) furosemide (Lasix) tablet 40 mg 40 mg, Oral, Daily, First dose on Sat06/28/25 at 1215, Until Discontinued, Routine, Recovery(Phase II-Outpatient)/On Unit(Inpatient) 1134 (Given - Provider: Sophie Amin RN) 0914 (Given - Provider: Sophie Amin RN) heparin (porcine) injection 5,000 Units (CANCELED) 5,000 Units, Subcutaneous, Every 8 hours scheduled, First dose on Sat06/26/25 at 0600, Until Discontinued, Routine, Recovery(Phase II-Outpatient)/On Unit(Inpatient) 0554 (Given - Provider: Jed Contreras RN)1320 (Given - Provider: Betito Gold RN)2138 (Given - Provider: John Madrid, KIRILL) 0618 (Given - Provider: John Madrid RN)1531 (Given - Provider: Sophie Amin RN)2106 (Given - Provider: Sim Farrell, KIRILL) 0613 (Given - Provider: Sim Farrell, KIRILL) magnesium sulfate IVPB 2 g (COMPLETED) 2 g, Intravenous, Once, 1 dose, On 06/27/25 at 0130, Routine 0103 (New Bag - Provider: Jed Contreras RN) methocarbamol (Robaxin) tablet 500 mg (CANCELED) 500 mg, Oral, 4 times daily, First dose on 06/27/25 at 0045, Until Discontinued, Routine 0010 (Given - Provider: Jed Contreras RN)0800 (Given - Provider: Betito Gold, KIRILL)1320 (Given - Provider: Betito Gold RN)1712 (Given - Provider: Betito Gold RN)2138 (Given - Provider: John Madrid RN) 0904 (Given - Provider: Sophie Amin RN) methocarbamol (Robaxin) tablet 750 mg 750 mg, Oral, 4 times daily, First dose (after last modification) on 06/28/25 at 1400, Until Discontinued, Routine, Recovery(Phase II-Outpatient)/On Unit(Inpatient) 1531 (Given - Provider: Sophie Amin RN)1805 (Given - Provider: Sophie Amin RN)2106 (Given - Provider: Sim Farrell, KIRILL) 0914 (Given - Provider: Sophie Amin RN) metoprolol tartrate (Lopressor) split tablet 12.5 mg (CANCELED) 12.5 mg, Oral, 2 times daily, First dose on 06/26/25 at 2100, Until Discontinued, Routine 0800 (Given - Provider: Betito Gold RN) metoprolol tartrate (Lopressor) tablet 25 mg 25 mg, Oral, 2 times daily, First dose (after last modification) on 06/27/25 at 2100, Until Discontinued, Routine 2138 (Given - Provider: John Madrid RN) 0904 (Given - Provider: Sophie Amin RN)210 (Given - Provider: Sim Farrell, KIRILL) 0913 (Given - Provider: Sophie Amin RN) mupirocin (Bactroban) 2 % ointment 1 Application Each Nostril, 2 times daily, 10 doses, First dose on Sat06/25/25 at 1345, Last dose on Sat06/29/25 at 2100, Routine 0800 (Given - Provider: Betito Gold RN)213 (Given - Provider: John Madrid RN) 09 (Given - Provider: Sophie Amin RN)2105 (Given - Provider: Sim Farrell, RN) 09 (Given - Provider: Sophie Amin RN) oxyCODONE (Roxicodone) immediate release tablet 10 mg (COMPLETED) 10 mg, Oral, Once, 1 dose, On Sat06/28/25 at 1215, Routine, Recovery(Phase II-Outpatient)/On Unit(Inpatient) 1135 (Given - Provider: Sophie Amin RN) pantoprazole (Protonix) EC tablet 40 mg 40 mg, Oral, Daily, First dose on Sat06/27/25 at 0900, Until Discontinued, Routine 0800 (Given - Provider: Betito Gold RN) 904 (Given - Provider: Sophei Amin RN) 09 (Given - Provider: Sophie Amin RN) polyethylene glycol (Miralax) packet 17 g 17 g, Oral, 2 times daily, First dose (after last modification) on 06/26/25 at 2100, Until Discontinued, Routine, Recovery(Phase II-Outpatient)/On Unit(Inpatient) 0800 (Given - Provider: Betito Gold RN)2137 (Given - Provider: John Madrid RN) 903 (Given - Provider: Sophie Amin RN)2105 (Not Given - Provider: Sim aFrrell, RN - Reason: Patient/family refused) 09 (Not Given - Provider: Sophie Amin RN - Reason: Patient/family refused) potassium chloride CR (Klor-Con) ER tablet 40 mEq (COMPLETED) 40 mEq, Oral, Once, 1 dose, On Sat06/29/25 at 0930, Routine 0913 (Given - Provid er: Sophie Amin RN) senna (Senokot) tablet 17.2 mg 17.2 mg, Oral, 2 times daily, First dose (after last modification) on 06/26/25 at 2100, Until Discontinued, Routine, Recovery(Phase II-Outpatient)/On Unit(Inpatient) 0800 (Given - Provider: Betito Gold RN)2137 (Given - Provider: John Madrid RN) 09 (Given - Provider: Sophie Amin RN)2107 (Not Given - Provider: Sim Farrell RN - Reason: Patient/family refused) 0914 (Not Given - Provider: Sophie Amin RN - Reason: Patient/family refused) sodium chloride 0.9 % flush 10 mL 10 mL, Intravenous, Every 12 hours, First dose on Sat06/25/25 at 1400, Until Discontinued, Routine 0210 (Given - Provider: Jed Contreras RN)1320 (Given - Provider: Bettio Gold RN) 0220 (Canceled Entry - Provider: John Madrid RN)1521 (Given - Provider: Sophie Amin RN) 0111 (Given - Provider: Sim Farrell RN) Sodium Phosphate-NaCl IVPB 15 mmol (COMPLETED) 15 mmol, Intravenous, Once, 1 dose, On Sat06/27/25 at 0145, Routine 0210 (Given - Provider: Jed Contreras RN) PRN Medication Order 06/27/2025 06/28/2025 06/29/2025 bisacodyl (Dulcolax) suppository 10 mg 10 mg, Rectal, Daily PRN, Starting on Sat06/28/25 at 1119, Until Sat06/29/25 at 1334, Routine, Recovery(Phase II-Outpatient)/On Unit(Inpatient), constipation HYDROmorphone (Dilaudid) injection 0.5 mg (CANCELED)(Linked Group 2) 0.5 mg, Intravenous, Every 2 hour PRN, Starting on Sat06/25/25 at 1259, Until Sat06/28/25 at 0938, Routine, Recovery(Phase II-Outpatient)/On Unit(Inpatient), severe pain, if oxycodone does not decrease pain score by 2 points after 45 min, no enteral access and / or per provider request for bedside procedure 0423 (Given - Provider: Jed Contreras RN)0747 (Given - Provider: Betito Gold RN)1055 (Given - Provider: Betito Gold, KIRILL)1631 (Given - Provider: Betito Gold, KIRILL) lidocaine (Lidoderm) 5 % patch 1 patch 1 patch, Apply externally, Every 24 hours PRN, Starting on Sat06/27/25 at 0833, Until Sat06/29/25 at 1334, Administer over 12 Hours, Routine, Mild + Pain > or =1: CPOT, DVPRS, FLACC, PAINAD, NPASS, NRS, [place] Faces; > or =2: NIPS magnesium hydroxide (Milk of Magnesia) 400 MG/5ML suspension 30 mL 30 mL, Oral, Daily PRN, Starting on Sat06/28/25 at 1119, Until Sat06/29/25 at 1334, Routine, Recovery(Phase II-Outpatient)/On Unit(Inpatient), constipation ondansetron (Zofran) injection 4 mg 4 mg, Intravenous, Every 6 hours PRN, Starting on Sat06/25/25 at 1259, Until Sat06/29/25 at 1334, Routine, Recovery(Phase II-Outpatient)/On Unit(Inpatient), nausea, vomiting oxyCODONE (Roxicodone) immediate release tablet 10 mg(Linked Group 3) 10 mg, Oral, Every 6 hours PRN, Starting on Sat06/25/25 at 1259, Until Sat06/29/25 at 1334, Routine, Recovery(Phase II-Outpatient)/On Unit(Inpatient), severe pain 0010 (Given - Provider: Jed Contreras RN)0606 (Given - Provider: Jed Contreras RN)1320 (Given - Provider: Betito Gold RN)2137 (Given - Provider: John Madrid, KIRILL) 0904 (Given - Provider: Sophie Amin, KIRILL)1134 (Canceled Entry - Provider: Sophie Amin RN)2106 (Given - Provider: Sim Farrell RN) 0913 (See Alternative - Provider: Sophie Amin RN) oxyCODONE (Roxicodone) immediate release tablet 5 mg(Linked Group 3) 5 mg, Oral, Every 6 hours PRN, Starting on Sat06/25/25 at 1259, Until Sat06/29/25 at 1334, Routine, Recovery(Phase II-Outpatient)/On Unit(Inpatient), Moderate/Severe Pain > or =3: CPOT; > or =4: FLACC, PAINAD, NPASS, NRS, [place] Faces; > or =5: DVPRS, NIPS 0010 (See Alternative - Provider: Jed Contreras, RN)0606 (See Alternative - Provider: Jed Contreras, RN)1320 (See Alternative - Provider: Betito Gold, KIRILL)2137 (See Alternative - Provider: John Madrid, RN) 0904 (See Alternative - Provider: Sophie Amin, RN)1134 (See Alternative - Provider: Sophie Amin, RN)2106 (See Alternative - Provider: Sim Farrell, KIRILL) 0913 (Given - Provider: Sophie Amin RN) sodium chloride 0.9 % flush 10 mL 10 mL, Intravenous, Every 1 hour PRN, Starting on Sat06/25/25 at 1306, Until Sat06/29/25 at 1334, Routine, Flush Before and After EVERY dose of medication. sodium chloride 0.9 % flush 20 mL 20 mL, Intravenous, Every 1 hour PRN, Starting on Sat06/25/25 at 1306, Until Sat06/29/25 at 1334, Routine, After blood draws and if any blood seen in tubing. Linked Groups Order Group 1: amiodarone (Pacerone) tablet 400 mgJump to med 400 mg, Oral, 2 times daily, 14 doses, First dose on Sat06/26/25 at 1415, Last dose on Sat07/02/25 at 2100, Routine Followed by amiodarone (Pacerone) tablet 200 mgJump to med 200 mg, Oral, Daily, First dose on Sat07/03/25 at 0900, Until Discontinued, Routine Group 2: HYDROmorphone (Dilaudid) injection 0.25 mg (CANCELED) 0.25 mg, Intravenous, Every 2 hour PRN, Starting on Sat06/25/25 at 1259, Until Sat06/28/25 at 0938, Routine, Recovery(Phase II-Outpatient)/On Unit(Inpatient), Moderate/Severe Pain > or =3: CPOT; > or =4: FLACC, PAINAD, NPASS, NRS, [place] Faces; > or =5: DVPRS, NIPS , if oxycodone does not decrease pain score by 2 points after 45 min, no enteral access and / or per provider request for bedside procedure Or HYDROmorphone (Dilaudid) injection 0.5 mg (CANCELED)Jump to med 0.5 mg, Intravenous, Every 2 hour PRN, Starting on Sat06/25/25 at 1259, Until Sat06/28/25 at 0938, Routine, Recovery(Phase II-Outpatient)/On Unit(Inpatient), severe pain, if oxycodone does not decrease pain score by 2 points after 45 min, no enteral access and / or per provider request for bedside procedure Group 3: oxyCODONE (Roxicodone) immediate release tablet 5 mgJump to med 5 mg, Oral, Every 6 hours PRN, Starting on Sat06/25/25 at 1259, Until Sat06/29/25 at 1334, Routine, Recovery(Phase II-Outpatient)/On Unit(Inpatient), Moderate/Severe Pain > or =3: CPOT; > or =4: FLACC, PAINAD, NPASS, NRS, [place] Faces; > or =5: DVPRS, NIPS Or oxyCODONE (Roxicodone) immediate release tablet 10 mgJump to med 10 mg, Oral, Every 6 hours PRN, Starting on Sat06/25/25 at 1259, Until Sat06/29/25 at 1334, Routine, Recovery(Phase II-Outpatient)/On Unit(Inpatient), severe pain documented in this encounter Additional Health Concerns Active Problems Noted Date Diagnosed Date Autogenerated Problem 05/24/2025 Assessment Noted Time PHQ-9 Depression Total Score: 0 03/15/20 25 10:15 AM EDT A fall risk assessment has been complete d for the patient 05/28/2025 1:07 PM EDT A Body Mass Index follow-up plan has been documented for the patient 06/29/2025 11:29 AM EST documented as of this encounter Care Teams Cardiovascular Surgical Tech Relationship Specialty Start Date End Date Stefan Pérez MD [address] [place] [address] PCP - General 12/08/21 Joanne Bolaños MD [address] [place] [id number] Referring Physician Interventional Cardiology 05/25/25 documented as of this encounter
--- OUTSIDE RECORDS SUMMARY | 2025-06-25 06:00 | XMS_ITS | Encounter Summary ---
Author Organization Healthcare Address [address] [id number] Care Team Providers Care Artisan Plasterer Name Role Phone Stefan Pérez MD Primary Care Provider [phone] Joanne Bolaños MD Unavailable [phone] Reason for Visit * Auth/Cert (Routine) Specialty Diagnoses / Procedures Referred By Contac t Referred To Contact Diagnoses Mitral valve insufficiency, unspecified etiology Mitral valve insufficiency, unspecified etiology [I34.0] Procedures OK REPLACEMENT OF MITRAL VALVE REPAIR OR REPLACEMENT, MITRAL VALVE VIA THORACOTOMY Khushbu Gordon MD [address] [address] Phone: tel: fax: [facility] [address] [place] [address] Phone: tel: Referral ID Status Reason Start Date Expiration Date Visits Re quested Visits Authorized [id number] 1 1 Encounter Details Date Type Department Care Team (Late st Contact Info) Description 06/25/2025 7:00 AM EDT - 06/25/2025 1:30 PM EDT Surgery [facility] [address] [place] [id number] Khushbu Gordon MD [address] [address] REPAIR OR REPLACEMENT, MITRAL VALVE VIA THORACOTOMY [14911 (CPT )] Surgery Details Date/Time Status Location OR Service Patient Class Case Class Case Type Trauma Case? 06/25/2025 7:00 AM Posted [facility] OR 10 Cardiothoracic Surgery Surgery Admit E-Elect shannan Panel 1 Procedure LRB Anes Op Region Wound Class Comments REPAIR OR REPLACEMENT, NOEMY L VALVE VIA THORACOTOMY Right General Class I/ Clean Surgeon Surgeon Role Service Panel Samaria Taylor MD Assisting Cardiothoracic Surgery 1 Samaria Taylor MD Assisting Cardiothoracic Surgery 1 Khushbu Gordon MD Primary Cardiothoracic Surger y 1 Jemal Obando MD Resident - Assisting 1 documented in this encounter Social History [...] Sign Reading Time Taken Comments Blood Pressure 151/84 06/25/2025 6:27 AM EDT Pulse 65 06/25/2025 1:30 PM EDT Temperature 36.6 C (97.9 F) 06/25/2025 6:26 AM EDT Respiratory Rate 17 06/25/2025 1:30 PM EDT Oxygen Saturation 99% 06/25/2025 1:30 PM EDT Inhaled Oxygen Concentration - - Weight 89.3 kg (196 lb 14.4 oz) 06/25/2025 6:05 AM EDT Height 175.3 cm (5' 9.02 ) 06/25/2025 1 2:49 PM EDT Body Mass Index 29.71 06/26/2025 11:00 AM EDT documented in this encounter Functional Status documented as of this encounter Medications at [...] and with belongings (clothes, phone, wallet, phone assembler body). No questions or concerns at this time. * Progress Notes - Maxine Madden - 06/29/2025 11:30 AM EST Inpatient Cardiac Rehab Assessment Patient Name: Jake Pacheco Subjective: Mr. Pacheco qualifies for outpatient cardiac rehab due to MVRepair. I/R/P: Jake Pacheco qualifies for outpatient cardiac rehab. Referral has been entered and will be sent tohis preferred location, [facility]. Levan will contact Mr. Pacheco to discuss and [...] 2. Eligibility: Heart valve surgery 3. Exceptions/exclusions: [facility] Cardiac Rehab Exclusions: None 4. Referral: [facility] Cardiac Rehab Referral: Patient will consider participating in a cardiac rehabilitation program. Patient was provided with contact information for the following program([facility] [phone]. 5. Information sent: Information Sent: Appropriate information [...] Note Jake Pacheco 75 y.o. male CSN: [id number] Admission: 06/25/2025 5:36 AM Primary Problem: Mitral valve insufficiency Primary Business Account Manager: Primary Caregiver: Self Assistance Available at Discharge: Current Outpatient/Agency/Support Group: DME Availability of Care Givers (#Hours): No assistance needed Family/Business Account Manager(s) Willingness Assessed to care for patient at home: Yes Family/Business Account Manager(s) Readiness Assessed to care for patient at [...] in last 30 days Medicare Documentation:n/a Follow-up: [facility] [address] [facility], [address] [facility] [id number] Discharge Transportation: Transportation Anticipated: family or friend [...] Sulma Madden RN * Discharge Summary - Tahmina Sulma Rocha, DIAL BUFFER - 06/29/2025 9:49 AM EST Hospitalization Admit Date/Time: 06/25/2025 5:36 AM Admitting Attending: Khushbu Gordon Discharge Date: 06/29/2025 Discharge Attending Physician: Khushbu Gordon MD PCP name and Address: Stefan Pérez MD [address] [place] [address] [address] / [address] [address] Referring provider name and address: No referring [...] apical pneumothorax and interval removal of the [place]- Liliane catheter and endotracheal tube, with no [...] band on 06/25/2025 Surgeon: Khushbu Gordon - Samaria Osman - Assisting Medication List .. acetaminophen 500 [...] Your Medications These medications were sent to [facility] - [place], [place] - [address], [facility] [id number] acetaminophen 500 MG tablet amiodarone 200 MG [...] your incisions. Do NOT lift, push, or sheeting puller 5 pounds for six weeks. Do NOT drive until your physician gives you approval. Move around as you are able. No activity that tires you out. You can ride in the front seat of the car. You can raise both arms at the same time. Outpatient Follow-Up Future Appointments Date Time Provider Department Center 07/02/2025 12:[address] [facility] 07/02/2025 2:40 PM Carlos A Enrique MD [facility] 07/19/2025 11:20 AM Khushbu Gordon MD [facility] 09/01/2025 2:30 PM Elsi Mas, DO [facility] Test Results Pending At Discharge None [...] at 07/05/2025 10:18 AM EST * Marla Quiroz PharmD - 06/29/2025 8:27 AM EST Images [...] the video go to this web address: [email or web address] Or, scan this QR code with your smart phone ?? [facility] * Marla Quiroz PharmD - 06/29/2025 8:27 AM EST Images from the original note were not included. [id number] Apixaban IMPORTANT WARNING: If you have atrial [...] doctor or pharmacist will give you the supervisor ditching's patient information sheet (Medication Guide) when you begin treatment with apixaban and each time you refill your prescription. Read the information carefully and ask your doctor or pharmacist if you have any questions. You can also visit the Food and Drug Administration (FDA) website (https://www.fda.gov/Drugs/DrugSafety/glo321038.htm) or the supervisor ditching's website to obtain the Medication Guide. Talk [...] a class of medications called factor Xa inhibitors. It works by blocking the action of [...] or herbal products may interact with apixaban: Shauna's wort; aspirin; NSAIDs (such as ibuprofen [Advil??, [...] be awakened, immediately call emergency services at 911. Symptoms of overdose may include the following: [...] of all of the prescription and nonprescription (nzdv-flv-lhrkjcf) medicines, vitamins, minerals, and dietary supplements you [...] or pharmacist about specific clinical use. The [place] [employer] represents that the information provided hereunder was formulated with a reasonable standard of care, and in conformity with professional standards in the field. The [place] [employer] makes no representations or warranties, express or implied, including, but not limited to, any implied warranty of merchantability and/or fitness for a particular purpose, with respect to such information and specifically disclaims all such warranties. Users are advised that decisions regarding drug therapy are complex medical decisions requiring the independent, informed decision of an appropriate health animal care taker, and the information is provided for informational purposes only. The entire monograph for a drug should be reviewed for a thorough understanding of the drug's actions, uses and side effects. The [place] [employer] does not endorse or recommend the use of any drug.The information is not a substitute for medical care. AHFS?? Patient Medication Information?. ?? Copyright, 2023. The [place] [employer]??, [address], [address], [place], [place]. All Rights Reserved. Duplication for commercial use must be authorized by [facility]. Selected Revisions: October 10, 2024. AHFS?? [...] encouraged Intervention: Promote Injury-Free Environment Flowsheets (Taken 06/29/2025 0516) Safety Promotion/Fall Prevention: activity supervised clutter-free environment maintained safety round/check completed nonskid shoes/slippers when out of bed Problem: Oral Intake Inadequate Goal: Improved Oral Intake Outcome: Ongoing, Progressing Intervention: Promote and Optimize Oral Intake Flowsheets (Taken 06/29/2025 0516) Oral Nutrition Promotion: physical activity promoted rest periods promoted Nutrition Interventions: food preferences provided meal set-up provided * Progress Notes - Sulma Martel, DIAL BUFFER - 06/28/2025 12:00 PM EST CVT Progress [...] (97.7 ??F) Heart Rate: [57-116] 66 Resp: [07-21] 14 BP: (85-131)/(51-81) 117/67 Visit Vitals BP [...] apixiban at discharge CXR & Labs in Cardiothoracic Surgery [phone] [1] acetaminophen, 1,000 mg, Oral, q6h LASHONDA [...] Note Jake Pacheco 75 y.o. male CSN: [id number] Admission: 06/25/2025 5:36 AM Primary Problem: Mitral valve insufficiency PCP: Stefan Pérez MD Emergency Contact: Extended Emergency Contact Information Primary Emergency Contact: Allie Leos Mobile Relation: Significant Other Preferred language: Togolese Installer Soft Top needed? No Insurance: Primary Visit Coverage Payer Plan Sponsor Code Group Number Group Name MEDICARE MEDICARE A & B Primary Visit Coverage Subscriber Subscriber ID Subscriber Name Subscriber SSN Subscriber Address [id number] Jake Pacheco [id number] [address] [place] [address] Patient information: Primary Caregiver: Self Support System: Immediate family Daily Living Activities: Functional Status: Independent Living Arrangements: Spouse/Significant other Type of Residence: Private residence, Multi Level (ramp to enter) [address] [facility] [facility] [address] Current DME: Equipment Currently Used at Home: [...] Dialysis Services: N/A Living Will/Advance Directive/Power of Customer Agent /Guardian: N/A Social Drivers of Health Food [...] Score: 0 Utilities: Not At Risk (06/28/2025) [facility] Utilities Threatened with loss of utilities: No [...] POA/LW/AD. Pt's EC is s/o Allie Leos ([phone]). Pt lives with s/o in a multi-level [...] confirms PCP as Stefan Pérez MD in [place]. Pt drives self to appointments. Pt reports family could provide transport upon DC. Pt has never worked with an MATTING PRESS TENDER and has never stayed anywhere overnight for physical rehab. Pt prefers [facility] in [place] as his pharmacy. Pt confirms Medicare A&B and reports he does not currently have part D. PT/OT recs for rollator; pt declined at this time, stating his s/o had multiple rollators that he could use. No further SW concerns identified at this time. SW will monitor pt's progress and will follow up with DC planning and needs as appropriate. ARLETTE Rousseau * Wendy Francisco RN - 06/28/2025 10:47 AM EST Images from the original note were not included. [address]29 Thoracotomy: Your Home Recovery For the first [...] out. Last Reviewed Date: 2024 00:00:00 ?? [id number] The [employer]. All rights reserved. This information is not intended as a substitute for professional medical care. Always follow your healthcare professional's instructions. * [facility] - Wendy May RN - 06/28/2025 10:47 AM EST Images from the original note were not included. 74514 Thoracotomy Thoracotomy is surgery used to diagnose [...] . Last Reviewed Date: 2024 00:00:00 ?? 4453-0263 [employer]. All rights reserved. This information is not intended as a substitute for professional medical care. Always follow your healthcare professional's instructions. * Javier Callahan - Wendy May RN - 06/28/2025 10:46 AM EST Images from the original note were not included. 41393 Recovery From Heart Surgery: The First Few [...] stop Last Reviewed Date: 2024 00:00:00 ?? 0180-8024 [employer]. All rights reserved. This information is not intended as a substitute for professional medical care. Always follow your healthcare professional's instructions. * Javier SanfordRICHELLE - Wendy May RN - 06/28/2025 10:46 AM EST Images from the original note were not included. 49946 After Heart Valve Surgery For the first [...] headache Last Reviewed Date: 2023 00:00:00 ?? 4646-0372 [employer]. All rights reserved. This information is not intended as a substitute for professional medical care. Always follow your healthcare professional's instructions. * Discharge Instr - Other Orders - Wendy May RN - 06/28/2025 10:46 AM EST Please arrive 30 minutes early for your appointment with Dr. Gordon Prior to your appointment, go to the radiology department on the 1st floor of the [facility] near [facility] for a chest x-ray. Then go [...] your incisions. Do NOT lift, push, or sheeting puller 5 pounds for six weeks. Do [...] Wendy May CT Surgery Nurse Navigator at [phone] Saturday through Saturday 7am- 3:30pm [facility] [phone] after 3:30 pm, weekends and holidays - ask for the CT surgeon showroom salesperson. * Query Clarification Note - Khushbu Gordon [...] Progressing Flowsheets (Taken 06/27/2025 1015 by Betito Gold, RN) Plan of Care [...] Pain Pt reporting right side incisional pain: 05/05 Pillow support provided at end of session [...] complete 2 sequential grooming ADLs with Modified [place]. 06/26/25 2 weeks OT Goal 3: Patient will complete total toileting task at bathroom level with Modified [place]. 06/26/25 2 weeks OT Goal 4: Patient to complete environmental navigation task simulating home and community based self care tasks, acheiving up to 500 feet with modified independence. 06/26/25 2 weeks Written by Jyothi Bond on 06/28/25 at 12:22 PM. * Progress Notes - Beth Ash, ELECTRIC MOTOR REPAIRMAN - 06/28/2025 9:34 AM EST Physical Therapy Treatment Patient Name: Jake Pacheco Today's Date: 06/28/2025 Total Treatment Time: 39 min PT Discharge Recommendations: Home with assistance Equipment Recommended: Rollator Subjective The patient states, I am doing alright this morning. Participants in Care Family/Caregiver Present: No Installer Soft Top: Not Applicable Presentation Oxygen: None (Room air) [...] Mobility Exam: Sit to Supine Level of [place]: Minimum assist (75% patient's effort) Physical/Nonphysical Assist: Additional assist utilized for safety, Verbal Cues, Set-up required Transfers Transfer Intervention: Verbal cues provided for correct bilateral hand and foot placement during sit to stand transfers. Transfer Interventions: The patient stood at the sink for hygiene approximately 4-5 minutes with CGA/SBA of 1 person; Transfer Exam: Sit to stand Level of [place]: Stand-by assist Physical/Nonphysical Assist: Verbal Cues, Set-up required Assistive Device: Rollator Transfer Exam: Stand to Sit Level of [place]: Stand-by assist Physical/Nonphysical Assist: Verbal Cues, Set-up [...] strength, decreased activitytolerance and decreased safety awareness. ELECTRIC MOTOR REPAIRMAN discussed with supervising PT on 06/28/2025 the [...] 06/28/25 at 12:24 PM. Cosigned by Jigar Vicetne at 06/28/2025 3:21 PM EST Associated attestation - Jigar Vicente - 06/28/2025 3:21 PM EST PT and ELECTRIC MOTOR REPAIRMAN discussed pt's change in function and PT is in agreement with ELECTRIC MOTOR REPAIRMAN's change in PT recommendations. * Significant Event - Sulma Martel, DIAL BUFFER - 06/27/2025 4:43 PM EST Ventricular wires [...] 06/27/2025 Interval extubation and removal of the [place]-Liliane catheter. Otherwise no significant interval change. CRITICAL [...] 28 Fr 06/25/25 1128 Pleural 2 GCS: [place] Coma Scale Score: 15 Review of Systems [...] Not Applicable -Recover per protocol. -Transfer to [facility] 06/27 On mechanically assisted ventilation (CMS/HCC) Present [...] MD Added automatically from request for surgery [id number] Encounter for preprocedural cardiovascular examination Heart failure Daniella Richardson DO Cosigned by Clemente Pollard MD at 06/27/2025 2:25 PM EST Associated attestation - Clemente Pollard MD - 06/27/2025 2:25 PM EST I saw and evaluated the patient with the resident/fellow. I discussed the case with the resident/fellow and agree with the findings and plan as documented. * Significant Event - Daniella Richardson DO - 06/27/2025 10:52 AM EST Post-op day 2 mini thoracotomy mitral valve repair with Dr. Gordon. Patient to be transferred to telemetry today per CVT surgery. No further CVICU needs at this time. [facility] will sign off. Daniella Richardson DO Anesthesiology PGY-4 Pager # [phone] * Care Plan - Betito Gold RN [...] encouraged Intervention: Promote Injury-Free Environment Flowsheets (Taken 06/27/2025 1000) Safety Promotion/Fall Prevention: [...] Flowsheets (Taken 06/26/2025 1658 by Betito Gold, KIRILL) Plan of Care Reviewed With: patient family Goal: Patient-Specific Goal (Individualized) Outcome: Ongoing, Progressing Flowsheets (Taken 06/25/2025 0646 by Rolanda Aaron RN) Patient/Family-Specific Goals (Include Timeframe): Patient will [...] Injury Flowsheets Taken 06/27/2025 0000 by Jed Contreras, RN Body Position: left turned Taken 06/26/2025 1645 by Betito Gold, KIRILL Skin Protection: incontinence pads utilized pulse oximeter [...] 0010) Pain Management Interventions: medication (see MAR) jeptma-asr-hkags dosing utilized quiet environment facilitated relaxation techniques [...] Manage Infection Flowsheets Taken 06/26/20251644 by Betito Gold, RN Infection Management: aseptic technique maintained Isolation Precautions: protective Taken 06/25/2025 1700 by Betito Gold, KIRLIL Fever Reduction/Comfort Measures: lightweight clothing lightweight bedding [...] and Manage Fall Risk Flowsheets (Taken 06/26/2025 164) Safety Promotion/Fall Prevention: activity supervised assistive device/personal items within reach clutter-free environment maintained fall prevention program maintained lighting adjusted room organization consistent safety round/check completed Intervention: Prevent Skin Injury Flowsheets Taken 06/26/20251644 Skin Protection: incontinence pads utilized pulse oximeter probe site changed transparent dressing maintained Taken 06/26/2025 1600 Body Position: left turned Intervention: Prevent and Manage VTE (Venous Thromboembolism) Risk Flowsheets (Taken 06/26/20251644) VTE Prevention/Management: bilateral SCDs (sequential compression devices) on Intervention: Prevent Infection Flowsheets (Taken 06/26/20251644) Infection Prevention: environmental surveillance performed equipment surfaces disinfected hand hygiene promoted rest/sleep promoted single patient room provided Goal: Optimal Comfort and Wellbeing Outcome: Ongoing, Progressing Intervention: Monitor Pain and Promote Comfort Flowsheets (Taken 06/26/20251644 by Ky Hernandez RN) Pain Management Interventions: medication (see MAR) Intervention: Provide Person-Centered Care Flowsheets (Taken 06/26/20251644) Trust Relationship/Rapport: care explained choices provided emotional support provided empathic listening provided questions answered questions encouraged reassurance provided thoughts/feelings acknowledged Problem: Fall Injury Risk Goal: Absence of Fall and Fall-Related Injury Outcome: Ongoing, Progressing Intervention: Identify and Manage Contributors Flowsheets (Taken 06/26/2025 164) Medication Review/Management: medications reviewed high-risk medications identified [...] maintained Isolation Precautions: protective Taken 06/25/2025 1700 Fever Reduction/Comfort Measures: lightweight clothing lightweight bedding Problem: Oral Intake Inadequate Goal: Improved Oral Intake Outcome: Ongoing, Progressing Intervention: Promote and Optimize Oral Intake Flowsheets (Taken 06/26/2025 1645) Oral Nutrition Promotion: rest periods promoted Nutrition [...] swallow. Start on CLD. DC arterial line. DC swan. Edited by: Daniella Richardson DO at 06/26/2025 [...] 16 Fr. 06/25/25 0730 -- 1 GCS: [place] Coma Scale Score: 15 Review of Systems [...] Postoperative pain Present on Admission: Unknown - [facility] Atrial fibrillation (CMS/HCC) Present on Admission: Unknown -Continue amiodarone infusion -PO load amio starting 06/26/25 Non-Hospital Problems Smoking High cholesterol Primary localized osteoarthritis of left hip S/P total left hip arthroplasty Nonrheumatic mitral (valve) insufficiency Primary osteoarthritis of left hip Overview Signed 11/07/2021 9:23 AM by Orlando Malloy MD Added automatically from request for surgery [id number] Encounter for preprocedural cardiovascular examination Heart failure Daniella Richardson DO * Consults - Emily Stallworth RD - 06/26/2025 11:30 AM EDTAssociated Order(s): IP CONSULT TO NUTRITION SERVICES Adult Nutrition Evaluation Note Jake Pacheco 75 y.o. male CSN: [id number] Room/Bed 213/213A Nutrition evaluation type: assessment Reason for evaluation: provider consult Hospital course: 75y/o male admitted 06/25 for mitral valve insufficiency. S/p mitral valve repair on 06/25. Past medical/ surgical history: Past Medical History[1] Surgical History[2] Social history: Former smoker - 1ppd for 64 years, previously used marijuana No latter-day needs Additional comments: 06/26: Weekend coverage. Vitals [...] (Calculated): 29.06 Weight Evaluation: Overweight (BMI 25-29.9) [place] Body Weight (kg): 73 Percent [place] Body Weight: 122 Wt Readings from Last [...] follow-up as able. Acuity Level: 1 Emily Stallworth, RD, LD, MS [1] Past Medical [...] clevidipine, 1 mg/hr, Last Rate: Stopped (06/25/25 6368) norepinephrine, 0-0.1 mcg/kg/min (Dosing Weight), Last Rate: Stopped (06/25/25 1255) propofol, 10-50 mcg/kg/min (Dosing Weight), Last Rate: Stopped (06/25/252102) [5] PRN medications: acetaminophen, acetaminophen, albumin human, [...] g 0 * Progress Notes - Jemal Obando MD - 06/26/2025 11:13 AM EDT Images [...] Trach Only): Discontinued S VT: 460 mL OK SUP: 8 cm H20 Insp Time (sec): 0.9 sec Vent Mode: PS/CPAP FiO2 (%): 40 % S RR: 20 S VT: 460 mL OK SUP: 8 cm H20 MAP (cm H2O): [...] valve repair) 06/25/2025 On mechanically assisted ventilation ([facility]) 06/25/2025 Postoperative pain 06/25/2025 BMI [...] admission Level of Mobility: Ambulatory- community Mobility [place]: Independent gait without device History of Falls: Yes (1 fall, dog tripped him) ADL Performance: Independent Patient/Family Goals To feel better and go home Objective Pain Pt reported 10/10 surgical pain. RN provided pain medication prior [...] Transfer Exam: Sit to stand Level of [place]: Contact guard Physical/Nonphysical Assist: Verbal Cues, Moderate cues, 1 person + 1 person to manage equipment Transfer Exam: Stand to Sit Level of [place]: Contact guard Physical/Nonphysical Assist: Verbal Cues, Moderate [...] management. Standardized Assessments Standardized Assessments Standardized Assessments: [facility] 6-Clicks Mobility Assessment [facility] 6-Clicks Mobility Assessment Difficulty patient has turning [...] 3-5 steps with a railing?: A lot [facility] 6-Clicks Mobility Assessment Total : 16 No [...] admission Level of Mobility Ambulatory- community Mobility [place] Independent gait without device History of Falls Yes (1 fall, dog tripped him) ADL Performance ADL Performance: Independent PATIENT/FAMILY GOALS To manage pain and return home. OBJECTIVE PAIN Patient reports 10 pain. Pain medications given by RN. DELIRIUM [...] performance in higher level BADLs/IADLs. Level of [place] Adaptive Equipment Utilized Interventions Feeding Setup, Supervision [...] present and aware. BED MOBILITY Level of [place] Physical/Non- physical Assist Adaptive Equipment Utilized Comment Not formally assessed due to patient being received and left sitting up in chair. TRANSFERS Level of [place] Physical/Non- physical Assist Adaptive Equipment Utilized Sit to Stand Contact guard Verbal Cues, Moderate cues, 1 person + 1 person to manage equipment Stand to sit Contact guard Verbal Cues, Moderate cues, 1 person + 1 person to manage equipment FUNCTIONAL MOBILITY Level of [place] Distance Adaptive Equipment Utilized Functional Mobility Contact guard assist, Moderate verbal cues, Additional assist utilized for safety 30 feet with multiple standing rest breaks 2/2 pain. Rollator Chair follow BALANCE Postural Appearance Posture: Rounded shoulders Level of [place] Balance Support Interventions Static Sit Standby assist Feet supported Dynamic Sit Contact guard. Static Stand Contact guard Right upper extremity support, Left upper extremity support Dynamic Stand Contact guard Left upper extremity support, Right upper extremity support STANDARDIZED ASSESSMENTS [facility] 6-Click Daily Activities Help from Other: Don/Doff Regular Lower Body Clothings: A lot Help From Other: Bathing: A lot Help From Other: Toileting: A lot Help From Other: Don/Doff Upper Body Clothings: A lot Help From Other: Grooming: Little Help From Other: Eating Meals: Little [facility] 6 Click - Daily Activities Score: 14 [...] complete 2 sequential grooming ADLs with Modified [place]. 2 weeks OT Goal 3: Patient will complete total toileting task at bathroom level with Modified [place]. 2 weeks OT Goal 4: Patient to [...] Extubation and Mechanical Ventilation Liberation Flowsheets (Taken 06/25/2025 170) Environmental Support: calm environment promoted distractions minimized environmental consistency promoted Sleep/Rest Enhancement: awakenings minimized natural light exposure provided noise level reduced relaxation techniques promoted Medication Review/Management: medications reviewed high-risk medications identified infusion titrated Goal: Optimal Nutrition Delivery Outcome: Ongoing, Progressing Goal: Absence of Device-Related Skin and Tissue Injury Outcome: Ongoing, Progressing Intervention: Maintain Skin and Tissue Health Flowsheets (Taken 06/25/20251699) Device Skin Pressure Protection: adhesive use limited ovus-wk-giim areas padded oqyw-ex-tcnzrb areas padded tubing/devices free from skin contact Goal: Absence of Ventilator-Induced Lung Injury Outcome: Ongoing, Progressing Intervention: Facilitate Lung-Protection Measures Flowsheets (Taken 06/25/20251699) Lung Protection Measures: lung compliance monitored Intervention: Prevent Ventilator-Associated Pneumonia Flowsheets (Taken 06/25/20251699) VAP Prevention Bundle: HOB elevation maintained oral [...] Intervention: Prevent or Manage Infection Flowsheets (Taken 06/25/20251699) Infection Management: aseptic technique maintained Fever Reduction/Comfort [...] discharge from the ICU daily (can use [facility]CLE[facility]AL[facility]).:[id number]}{TIP Tips will automatically disappear when the note is signed, there is no need to delete me! :[id number]}-Recover per protocol. -Barriers to discharge from ICU: [...] from ICU: On mechanically assisted ventilation (CMS/HCC) - Fast track appropriate - Reverse neuromuscular blockade - Wean vent as able Postoperative pain - [facility] Non-Hospital Problems Smoking High cholesterol Primary localized osteoarthritis of left hip S/P total left hip arthroplasty Nonrheumatic mitral (valve) insufficiency Primary osteoarthritis of left hip Overview Signed 11/07/2021 9:23 AM by Orlando Malloy MD Added automatically from request for surgery [id number] Encounter for preprocedural cardiovascular examination Heart failure [...] AM EDT OPERATIVE NOTE: Date: 06/25/2025 Location: [facility] [facility] Name: Jake Cabreralincoln, : 1950, Pre-operative Diagnosis: Problem List[1] Post-operative [...] artery in the femoral vein. Then with VINOD guidance we placed a 19 Tanzanian arterial cannula and the femoral artery over a guidewire after serial dilation. Then with VINOD guidance and with verifying a wire in the SVC at all times we placed a 25 Tanz[place] venous cannula with the tip in the [...] AM EDT History of present illness: Jake Pacheoc is a 75 y.o. male presenting for [...] AM EST Appointment Cardiac Imaging [address] [place] [address] 08/23/2025 12:00 PM EST Office Visit [facility] [address], [address] [place] [address] Khushbu Gordon MD [address] [place] [address] 09/01/2025 2:30 PM EST Office Visit [facility] [place] [address], [address] [place] [id number] Elsi Mas, [address] [place] [address] Pending Results Name Type Priority Associated Diagnoses [...] PEP THERAPY Routine 06/26/2025 2:00 PM EDT [facility], ADDL 30 MIN Routine 06/26/2025 [...] PEP THERAPY Routine 06/25/2025 2:00 PM EDT [place] [facility], E/M 30-74 MINUTES Routine 06/25/2025 [...] UNSOLICITED RESULTS Routine 06/25/2025 7:47 AM EDT [place] REPLACEMENT OF MITRAL VALVE 06/25/2025 6:49 AM [...] on 06/29/2025 9:55 AM us Sulma Martel DIAL BUFFER IMG XR PROCEDURES Final Resu lt * Magnesium (06/29/2025 2:59 AM EST) Magnesium, Plasma 2.1 1.9 - 2.4 mg/dL 06/29/2025 3:32 AM EST [facility] Blood Venous blood specimen / Unknown Venipuncture / Unknown 06/29/2025 2:59 AM EST 06/29/2025 3:03 AM EST us Khushbu Gordon MD LAB BLOOD ORDERABLES Final Res ult [facility] [address] [place] [address] * (ABNORMAL) Basic metabolic panel (06/29/2025 2:59 AM EST) Glucose, Plasma 105(H) 74 - 99 mg/dL 06/29/2025 3:32 AM EST [facility] BUN, Plasma 21 8 - 23 mg/dL 06/29/2025 3:32 AM EST [facility] Creatinine, Plasma 0.82 0.70 - 1.20 mg/dL 06/29/2025 3:32 AM EST [facility] BUN/Creatinine Ratio 26 06/29/2025 3:32 AM EST [facility] Sodium, Plasma 141 136 - 145 mmol/L 06/29/2025 3:32 AM EST [facility] Potassium, Plasma 3.7 3.6 - 4.9 mmol/L 06/29/2025 3:32 AM EST [facility] Chloride, Plasma 105 97 - 107 mmol/L 06/29/2025 3:32 AM EST [facility] CO2, Plasma 28 22 - 29 mmol/L 06/29/2025 3:32 AM EST [facility] Anion Gap 8 6 - 16 mmol/L 06/29/2025 3:32 AM EST [facility] Total Calcium, Plasma 7.8(L) 8.9 - 10.2 mg/dL 06/29/2025 3:32 AM EST [facility] eGFRcr 92.8 mL/min/1.7 3m*2 06/29/2025 3:32 AM EST [facility] Comment:Reported eGFRcr in m L/min/1.73m2 is based the CKD-EPI 2020 equation that does not use a race coefficient. Blood Venous blood specimen / Unknown Venipuncture / Unknown 06/29/2025 2:59 AM EST 06/29/2025 3:03 AM EST us Khushbu Gordon MD LAB BLOOD ORDERABLES Final Res ult [facility] [address] [place] [address] * (ABNORMAL) CBC W/O Differential (06/29/2025 2:59 AM EST) WBC Count 9.27 3.70 - 10.30 10*3/uL LAB HEMATOLOGY METHOD 06/29/2025 3:13 AM EST [facility] RBC Count 2.69(L) 4.60 - 6.10 10*6/uL LAB HEMATOLOGY METHOD 06/29/2025 3:13 AM EST [facility] HGB 7.9(L) 13.7 - 17.5 g/dL LAB HEMATOLOGY METHOD 06/29/2025 3:13 AM EST [facility] HCT 24.3(L) 40.0 - 51.0 % LAB HEMATOLOGY METHOD 06/29/2025 3:13 AM EST [facility] Platelet Count 150(L) 155 - 369 10*3/uL LAB HEMATOLOGY METHOD 06/29/2025 3:13 AM EST [facility] MCV 90 79 - 98 fL LAB HEMATOLOGY METHOD 06/29/2025 3:13 AM EST [facility] MCH 29.4 26.0 - 32.0 pg LAB HEMATOLOGY METHOD 06/29/2025 3:13 AM EST [facility] MCHC 32.5 30.7 - 35.5 g/dL LAB HEMATOLOGY METHOD 06/29/2025 3:13 AM EST [facility] RDW 14.0 11.5 - 14.5 % LAB HEMATOLOGY METHOD 06/29/2025 3:13 AM EST [facility] MPV 11.1 8.8 - 12.5 fL LAB HEMATOLOGY METHOD 06/29/2025 3:13 AM EST [facility] nRBC 0.0 <=0.0 per 100 WBCs LAB HEMATOLOGY METHOD 06/29/2025 3:13 AM EST [facility] Blood Venous blood specimen / Unknown Venipuncture / Unknown 06/29/2025 2:59 AM EST 06/29/2025 3:03 AM EST us Khushbu Gordon MD LAB BLOOD ORDERABLES Final Res ult [facility] [address] [place] [address] * (ABNORMAL) Basic metabolic panel (06/28/2025 3:20 PM EST) Glucose, Plasma 99 74 - 99 mg/dL 06/28/2025 4:12 PM EST [facility] BUN, Plasma 24(H) 8 - 23 mg/dL 06/28/2025 4:12 PM EST [facility] Creatinine, Plasma 0.81 0.70 - 1.20 mg/dL 06/28/2025 4:12 PM EST [facility] BUN/Creatinine Ratio 30 06/28/2025 4:12 PM EST [facility] Sodium, Plasma 138 136 - 145 mmol/L 06/28/2025 4:12 PM EST [facility] Potassium, Plasma 4.1 3.6 - 4.9 mmol/L 06/28/2025 4:12 PM EST [facility] Comment:Hemolyzed - Potassiu m may be falsely elevated by approximately 0.4-0.7 mmol/L. Chloride, Plasma 101 97 - 107 mmol/L 06/28/2025 4:12 PM EST [facility] CO2, Plasma 24 22 - 29 mmol/L 06/28/2025 4:12 PM EST [facility] Anion Gap 13 6 - 16 mmol/L 06/28/2025 4:12 PM EST [facility] Total Calcium, Plasma 7.9(L) 8.9 - 10.2 mg/dL 06/28/2025 4:12 PM EST [facility] eGFRcr 93.1 mL/min/1.7 3m*2 06/28/2025 4:12 PM EST [facility] Comment:Reported eGFRcr in m L/min/1.73m2 is based the CKD-EPI 2020 equation that does not use a race coefficient. Blood Venous blood specimen / Unknown Venipuncture / Unknown 06/28/2025 3:20 PM EST 06/28/2025 3:41 PM EST us Zheng Maciel APRN LAB BLOOD ORDERABLES Final R esult [facility] [address] [place] [address] * Magnesium (06/28/2025 3:02 AM EST) Magnesium, Plasma 2.1 1.9 - 2.4 mg/dL 06/28/2025 3:38 AM EST [facility] Blood Venous blood specimen / Unknown Venipuncture / Unknown 06/28/2025 3:02 AM EST 06/28/2025 3:10 AM EST us Khushbu Gordon MD LAB BLOOD ORDERABLES Final Res ult [facility] [address] [place] [address] * (ABNORMAL) Basic metabolic panel (06/28/2025 3:02 AM EST) Glucose, Plasma 102(H) 74 - 99 mg/dL 06/28/2025 3:39 AM EST [facility] BUN, Plasma 21 8 - 23 mg/dL 06/28/2025 3:39 AM EST [facility] Creatinine, Plasma 0.64(L) 0.70 - 1.20 mg/dL 06/28/2025 3:39 AM EST [facility] BUN/Creatinine Ratio 33 06/28/2025 3:39 AM EST [facility] Sodium, Plasma 134(L) 136 - 145 mmol/L 06/28/2025 3:39 AM EST [facility] Potassium, Plasma 06/28/2025 3:39 AM EST [facility] Comment:Hemolyzed Chloride, Plasma 102 97 - 107 mmol/L 06/28/2025 3:39 AM EST [facility] CO2, Plasma 26 22 - 29 mmol/L 06/28/2025 3:39 AM EST [facility] Anion Gap 6 6 - 16 mmol/L 06/28/2025 3:39 AM EST [facility] Total Calcium, Plasma 7.7(L) 8.9 - 10.2 mg/dL 06/28/2025 3:39 AM EST [facility] eGFRcr 100.0 mL/min/1.7 3m*2 06/28/2025 3:39 AM EST [facility] Comment:Reported eGFRcr in m L/min/1.73m2 is based the CKD-EPI 2020 equation that does not use a race coefficient. Blood Venous blood specimen / Unknown Venipuncture / Unknown 06/28/2025 3:02 AM EST 06/28/2025 3:10 AM EST us Khushbu Gordon MD LAB BLOOD ORDERABLES Final Res ult [facility] [address] [place] [address] * (ABNORMAL) CBC W/O Differential (06/28/2025 3:02 AM EST) WBC Count 11.22(H) 3.70 - 10.30 10*3/uL LAB HEMATOLOGY METHOD 06/28/2025 3:47 AM EST [facility] RBC Count 2.86(L) 4.60 - 6.10 10*6/uL LAB HEMATOLOGY METHOD 06/28/2025 3:47 AM EST [facility] HGB 8.3(L) 13.7 - 17.5 g/dL LAB HEMATOLOGY METHOD 06/28/2025 3:47 AM EST [facility] HCT 26.0(L) 40.0 - 51.0 % LAB HEMATOLOGY METHOD 06/28/2025 3:47 AM EST [facility] Platelet Count 89(L) 155 - 369 10*3/uL LAB HEMATOLOGY METHOD 06/28/2025 3:47 AM EST [facility] MCV 91 79 - 98 fL LAB HEMATOLOGY METHOD 06/28/2025 3:47 AM EST [facility] MCH 29.0 26.0 - 32.0 pg LAB HEMATOLOGY METHOD 06/28/2025 3:47 AM EST [facility] MCHC 31.9 30.7 - 35.5 g/dL LAB HEMATOLOGY METHOD 06/28/2025 3:47 AM EST [facility] RDW 14.5 11.5 - 14.5 % LAB HEMATOLOGY METHOD 06/28/2025 3:47 AM EST [facility] MPV 11.5 8.8 - 12.5 fL LAB HEMATOLOGY METHOD 06/28/2025 3:47 AM EST [facility] nRBC 0.0 <=0.0 per 100 WBCs LAB HEMATOLOGY METHOD 06/28/2025 3:47 AM EST [facility] Blood Venous blood specimen / Unknown Venipuncture / Unknown 06/28/2025 3:02 AM EST 06/28/2025 3:10 AM EST us Khushbu Gordon MD LAB BLOOD ORDERABLES Final Res ult [facility] [address] [place] [address] * XR Chest 1 View (06/28/2025 1:13 [...] on 06/28/2025 9:12 AM us Zheng Maciel APRN IMG XR PROCEDURES Final Resu lt * (ABNORMAL) POCT glucose meter (06/27/2025 2:30 PM EST) POCT Glucose 117(H) 74 - 99 mg/dL 06/27/2025 2:31 PM EST [facility] Comment:Accuracy of a glucos e [...] for testing. Comment 06/27/2025 2:31 PM EST [facility] Soil Science Technical Officer ID Betito Gold 06/27/2025 2:31 PM EST [facility] Device ID [id number] 06/27/2025 2:31 PM EST [facility] Specimen Type POC Capillary 06/27/2025 2:31 PM EST [facility] Blood Capillary blood specimen / Unknown 06/27/2025 2:30 PM EST 06/27/2025 2:31 PM EST us Khushbu Gordon MD LAB POINT OF CARE TE ST DOCKED DEVICE UNSOLICITED RESULTS Final Result Performing Organization Address City/[facility] Co de Phone Number [facility] [address] [place] [address] * (ABNORMAL) Ionized calcium, whole blood (06/27/2025 4:20 AM EST) Ionized Calcium, Whole Blood 4.2(L) 4.6 - 5.1 mg/dL LAB HEMATOLOGY METHOD 06/27/2025 4:25 AM EST [facility] Blood Venous blood specimen / Unknown Venipuncture / Unknown 06/27/2025 4:20 AM EST 06/27/2025 4:24 AM EST us Khushbu Gordon MD LAB BLOOD ORDERABLES Final Res ult Performing Organization Address City/[facility]/ZIP Co de Phone Number [facility] [address] [place] [address] * (ABNORMAL) Magnesium (06/27/2025 4:20 AM EST) Magnesium, Plasma 2.6(H) 1.9 - 2.4 mg/dL 06/27/2025 4:49 AM EST [facility] Blood Venous blood specimen / Unknown Venipuncture / Unknown 06/27/2025 4:20 AM EST 06/27/2025 4:25 AM EST us Khushbu Gordon MD LAB BLOOD ORDERABLES Final Res ult [facility] [address] [place] [address] * XR Chest 1 View (06/27/2025 1:32 AM EDT) Anatomical Region Laterality Modality Chest Digital Radiogra phy Impressions 06/27/2025 9:27 AM EST Interval extubation and removal of the [place] catheter. Otherwise no significant interval change. CRITICAL RESULT: No. COMMUNICATION: Per this written report. Drafted by Blanco Santillan MD on 06/27/2025 9:25 AM Final report signed by Blanco Santillan MD on 06/27/2025 9:27 AM Narrative 06/27/2025 9:27 AM EST CLINICAL INDICATION: Post-Op Cardiac Surgery TECHNIQUE: Single AP view of chest. COMPARISON: One day prior FINDINGS: Interval extubation and removal of the [place]-Liliane catheter. Chest tubes remain in place. The cardiomediastinal contours unchanged. No sizable pneumothorax. Trace right pleural effusion similar to prior. Right basal atelectatic changes. No new lung consolidation. Procedure Note Blanco Santillan MD - 06/27/2025 CLINICAL INDICATION: Post-Op Cardiac Surgery TECHNIQUE: Single AP view of chest. COMPARISON: One day prior FINDINGS: Interval extubation and removal of the [place]-Liliane catheter. Chest tubesremain in place. The cardiomediastinal contours unchanged. No sizablepneumothorax. Trace right pleural effusion similar to prior. Right basalatelectatic changes. No new lung consolidation. IMPRESSION: Interval extubation and removal of the [place]-Liliane catheter. Otherwise nosignificant interval change. CRITICAL RESULT: No. COMMUNICATION: Per this written report. Drafted by Blanco Santillan MD on 06/27/2025 9:25 AM Final report signed by Blanco Santillan MD on 06/27/2025 9:27 AM us Khushbu Gordon MD IMG XR PROCEDURES Final Result * (ABNORMAL) POCT glucose meter (06/27/2025 12:01 AM EDT) [facility] POCT Glucose 114(H) 74 - 99 mg/dL 06/27/2025 12:02 AM EDT [facility] Comment:Accuracy of [...] for testing. Comment 06/27/2025 12:02 AM EDT [facility] Soil Science Technical Officer ID Jed Contreras Jane 06/27/2025 12:02 AM EDT [facility] Device ID [id number] 06/27/2025 12:02 AM EDT [facility] Specimen Type POC Venous 06/27/2025 12:02 AM EDT [facility] Blood Venous blood specimen / Unknown 06/27/2025 12:01 AM EDT 06/27/2025 12:02 AM EDT us Khushbu Gordon MD LAB POINT OF CARE TE ST DOCKED DEVICE UNSOLICITED RESULTS Final Result [facility] [address] [place] [address] * (ABNORMAL) Ionized calcium, whole blood (06/27/2025 12:00 AM EDT) [facility] Ionized Calcium, Whole Blood 4.3(L) 4.6 - 5.1 mg/dL LAB HEMATOLOGY METHOD 06/27/2025 12:15 AM EDT [facility] Blood Venous blood specimen / Unknown Venipuncture / Unknown 06/27/2025 12:00 AM EDT 06/27/2025 12:12 AM EDT us Khushbu Gordon MD LAB BLOOD ORDERABLES Final Res ult [facility] [address] [place] [address] * Magnesium, Plasma (06/27/2025 12:00 AM EDT) Magnesium, Plasma 2.3 1.9 - 2.4 mg/dL 06/27/2025 12:37 AM EDT [facility] Blood Venous blood specimen / Unknown Venipuncture / Unknown 06/27/2025 12:00 AM EDT 06/27/2025 12:08 AM EDT us Khushbu Gordon MD LAB BLOOD ORDERABLES Final Res ult Performing Organization Address [facility]/ZIP Co de Phone Number [facility] [address] [place] [address] * (ABNORMAL) Renal Function Panel, Plasma (06/27/2025 12:00 AM EDT) Glucose, Plasma 119(H) 74 - 99 mg/dL 06/27/2025 12:37 AM EDT [facility] BUN, Plasma 17 8 - 23 mg/dL 06/27/2025 12:37 AM EDT [facility] Creatinine, Plasma 0.71 0.70 - 1.20 mg/dL 06/27/2025 12:37 AM EDT [facility] BUN/Creatinine Ratio 24 06/27/2025 12:37 AM EDT [facility] Sodium, Plasma 139 136 - 145 mmol/L 06/27/2025 12:37 AM EDT [facility] Potassium, Plasma 4.1 3.6 - 4.9 mmol/L 06/27/2025 12:37 AM EDT [facility] Chloride, Plasma 103 97 - 107 mmol/L 06/27/2025 12:37 AM EDT [facility] CO2, Plasma 27 22 - 29 mmol/L 06/27/2025 12:37 AM EDT [facility] Anion Gap 9 6 - 16 mmol/L 06/27/2025 12:37 AM EDT [facility] Total Calcium, Plasma 8.0(L) 8.9 - 10.2 mg/dL 06/27/2025 12:37 AM EDT [facility] Phosphorus, Plasma 2.3(L) 2.5 - 4.5 mg/dL 06/27/2025 12:37 AM EDT [facility] Albumin, Plasma 3.5 3.5 - 5.2 g/dL 06/27/2025 12:37 AM EDT [facility] eGFRcr 96.9 mL/min/1.7 3m*2 06/27/2025 12:37 AM EDT [facility] Comment:Reported eGFRcr in m L/min/1.73m2 is based the CKD-EPI 2020 equation that does not use a race coefficient. Blood Venous blood specimen / Unknown Venipuncture / Unknown 06/27/2025 12:00 AM EDT 06/27/2025 12:08 AM EDT us Khushbu Gordon MD LAB BLOOD ORDERABLES Final Res ult [facility] [address] [place] [address] * [place] CRITICAL CARE, ADDL 30 MIN (06/26/2025 1:24 [...] POCT glucose meter (06/26/2025 1:01 PM EDT) [facility] POCT Glucose 122(H) 74 - 99 mg/dL [...] for testing. Comment 06/26/2025 1:03 PM EDT [facility] Soil Science Technical Officer ID Betito Gold 06/26/2025 1:03 PM EDT [facility] Device ID [id number] 06/26/2025 1:03 PM EDT [facility] Specimen Type POC Capillary 06/26/2025 1:03 PM EDT [facility] Blood Capillary blood specimen / Unknown 06/26/2025 1:01 PM EDT 06/26/2025 1:03 PM EDT Khushbu Gordon MD LAB POINT OF CARE TE ST DOCKED DEVICE UNSOLICITED RESULTS Final Result Performing Organization Address City/State/[facility] Co de Phone Number [facility] [address] [place] [address] * (ABNORMAL) POCT glucose meter (06/26/2025 5:46 AM EDT) [facility] POCT Glucose 152(H) 74 - 99 mg/dL [...] 06/26/2025 5:47 AM EDT [facility] Soil Science Technical Officer ID John Amaya 06/26/2025 5:47 AM EDT [facility] Device ID [id number] 06/26/2025 5:47 AM EDT [facility] Specimen Type POC Capillary 06/26/2025 5:47 AM EDT [facility] Blood Capillary blood specimen / Unknown 06/26/2025 5:46 AM EDT 06/26/2025 5:47 AM EDT Khushbu Gordon MD LAB POINT OF CARE TE ST DOCKED DEVICE UNSOLICITED RESULTS Final Result Performing Organization Address City/[facility] Co de Phone Number [facility] [address] [place] [address] * POCT glucose meter (06/26/2025 5:44 AM EDT) POCT Glucose 07/02/2025 12:00 PM EST [facility] Comment: Accuracy of a glucose [...] 07/02/2025 12:00 PM EST [facility] Soil Science Technical Officer ID Martin [place] Nickjacques 07/02/2025 12:00 PM EST [facility] Device ID [id number] 07/02/2025 12:00 PM EST [facility] Specimen Type POC Arterial 07/02/2025 12:00 PM EST [facility] Blood Arterial blood specimen / Unknown 06/26/2025 5:44 AM EDT 06/26/2025 5:45 AM EDT Khushbu Gordon MD LAB POINT OF CARE TE ST DOCKED DEVICE UNSOLICITED RESULTS Edited Result - Final Performing Organization Address City/[facility]/ZIP Co de Phone Number [facility] [address] [place] [address] * (ABNORMAL) Blood gas, arterial (06/26/2025 4:06 AM EDT) pH, Arterial 7.43(H) 7.31 - 7.42 LAB HEMATOLOGY METHOD 06/26/2025 4:16 AM EDT [facility] pCO2, Arterial 37 32 - 45 mmHg LAB HEMATOLOGY METHOD 06/26/2025 4:16 AM EDT [facility] pO2, Arterial 102 >70 mmHg LAB HEMATOLOGY METHOD 06/26/2025 4:16 AM EDT [facility] SO2, Measured, Arterial 99(H) 94 - 98 % LAB HEMATOLOGY METHOD 06/26/2025 4:16 AM EDT [facility] Base Excess, Arterial 0.2 -2.0 - 3.0 mmol/L LAB HEMATOLOGY METHOD 06/26/2025 4:16 AM EDT [facility] Bicarbonate, Calculated, Arterial 24 22 - 26 mmol/L LAB HEMATOLOGY METHOD 06/26/2025 4:16 AM EDT [facility] Hematocrit, Whole Blood 32.4(L) 40.0 - 51.0 % LAB HEMATOLOGY METHOD 06/26/2025 4:16 AM EDT [facility] Sodium, Whole Blood 140 136 - 145 mmol/L LAB HEMATOLOGY METHOD 06/26/2025 4:16 AM EDT [facility] [facility] Potassium, Whole Blood 5.2(H) 3.6 - 4.9 mmol/L LAB HEMATOLOGY METHOD 06/26/2025 4:16 AM EDT [facility] Chloride, Whole Blood 109(H) 97 - 107 mmol/L LAB HEMATOLOGY METHOD 06/26/2025 4:16 AM EDT [facility] Glucose, Whole Blood 149(H) 74 - 99 mg/dL LAB HEMATOLOGY METHOD 06/26/2025 4:16 AM EDT [facility] Ionized Calcium, Whole Blood 4.2(L) 4.6 - 5.1 mg/dL LAB HEMATOLOGY METHOD 06/26/2025 4:16 AM EDT [facility] Lactate, Arterial, Whole Blood 1.2 0.5 - 1.6 mmol/L LAB HEMATOLOGY METHOD 06/26/2025 4:16 AM EDT [facility] Blood Arterial blood specimen / Unknown Arterial Puncture / Unknown 06/26/2025 4:06 AM EDT 06/26/2025 4:14 AM EDT us Khushbu Gordon MD LAB BLOOD ORDERABLES Final Res ult [facility] [address] [place] [address] * (ABNORMAL) Blood gas, arterial (06/26/2025 3:04 AM EDT) pH, Arterial 7.40 7.31 - 7.42 LAB HEMATOLOGY METHOD 06/26/2025 3:18 AM EDT [facility] pCO2, Arterial 38 32 - 45 mmHg LAB HEMATOLOGY METHOD 06/26/2025 3:18 AM EDT [facility] pO2, Arterial 112 >70 mmHg LAB HEMATOLOGY METHOD 06/26/2025 3:18 AM EDT [facility] SO2, Measured, Arterial 99(H) 94 - 98 % LAB HEMATOLOGY METHOD 06/26/2025 3:18 AM EDT [facility] Base Excess, Arterial -0.7 -2.0 - 3.0 mmol/L LAB HEMATOLOGY METHOD 06/26/2025 3:18 AM EDT [facility] Bicarbonate, Calculated, Arterial 24 22 - 26 mmol/L LAB HEMATOLOGY METHOD 06/26/2025 3:18 AM EDT [facility] Hematocrit, Whole Blood 33.6(L) 40.0 - 51.0 % LAB HEMATOLOGY METHOD 06/26/2025 3:18 AM EDT [facility] Sodium, Whole Blood 141 136 - 145 mmol/L LAB HEMATOLOGY METHOD 06/26/2025 3:18 AM EDT [facility] Potassium, Whole Blood 4.5 3.6 - 4.9 mmol/L LAB HEMATOLOGY METHOD 06/26/2025 3:18 AM EDT [facility] Chloride, Whole Blood 110(H) 97 - 107 mmol/L LAB HEMATOLOGY METHOD 06/26/2025 3:18 AM EDT [facility] Glucose, Whole Blood 152(H) 74 - 99 mg/dL LAB HEMATOLOGY METHOD 06/26/2025 3:18 AM EDT [facility] Ionized Calcium, Whole Blood 4.3(L) 4.6 - 5.1 mg/dL LAB HEMATOLOGY METHOD 06/26/2025 3:18 AM EDT [facility] Lactate, Arterial, Whole Blood 1.4 0.5 - 1.6 mmol/L LAB HEMATOLOGY METHOD 06/26/2025 3:18 AM EDT [facility] Blood Arterial blood specimen / Unknown Arterial Puncture / Unknown 06/26/2025 3:04 AM EDT 06/26/2025 3:16 AM EDT us Khushbu Gordon MD LAB BLOOD ORDERABLES Final Res ult [facility] [address] [place] [address] * XR Chest 1 View (06/26/2025 2:30 [...] Blanco Santillan MD on 06/26/2025 10:59 AM us Khushbu Gordon MD IMG XR PROCEDURES Final Result * ECG Adult - POD 1 (06/26/2025 1:59 AM EDT) EKG DIAGNOSIS CLASS Abnormal MUSE ECG Ventricular Rate 90 BPM MUSE ECG QRSD Interval 76 ms MUSE ECG QT Interval 372 ms MUSE ECG QTC Interval 455 ms MUSE ECG R [place] 32 degrees MUSE ECG T Wave [place] 66 degrees MUSE ECG Diagnosis Atrial fibrillation with controlled ventricular response MUSE ECG Diagnosis Abnormal ECG MUSE ECG Diagnosis MUSE ECG Diagnosis Confirmed by Jovi Perez ([id number]) on 06/26/2025 9:05:21 PM MUSE ECG 06/26/2025 1:59 AM EDT 06/26/2025 9:05 PM EDT Khushbu Gordon MD ECG ORDERABLES Final Result Performing Organization Address City/[facility]/ZIP Co de Phone Number MUSE ECG * Potassium, Plasma (06/26/2025 12:45 AM EDT) Pathologist [facility] Potassium, Plasma 4.8 3.6 - 4.9 mmol/L 06/26/2025 1:15 AM EDT [facility] Blood Venous blood specimen / Unknown Venipuncture / Unknown 06/26/2025 12:45 AM EDT 06/26/2025 12:54 AM EDT Khushbu Gordon MD LAB BLOOD ORDERABLES Final Res ult Performing Organization Address City/[facility] Co de Phone Number [facility] [address] [place] [address] * (ABNORMAL) Hematocrit (06/26/2025 12:45 AM EDT) Pathologist [facility] HCT 33.8(L) 40.0 - 51.0 % LAB HEMATOLOGY METHOD 06/26/2025 1:03 AM EDT [facility] Blood Venous blood specimen / Unknown Venipuncture / Unknown 06/26/2025 12:45 AM EDT 06/26/2025 12:54 AM EDT Khushbu Gordon MD LAB BLOOD ORDERABLES Final Res ult [facility] [address] [place] [address] * (ABNORMAL) Hemoglobin (06/26/2025 12:45 AM EDT) HGB 11.0(L) 13.7 - 17.5 g/dL LAB HEMATOLOGY METHOD 06/26/2025 1:03 AM EDT [facility] Blood Venous blood specimen / Unknown Venipuncture / Unknown 06/26/2025 12:45 AM EDT 06/26/2025 12:54 AM EDT us Khushbu Gordon MD LAB BLOOD ORDERABLES Final Res ult [facility] [address] [place] [address] * (ABNORMAL) Blood gas, arterial (06/26/2025 12:45 AM EDT) pH, Arterial 7.43(H) 7.31 - 7.42 LAB HEMATOLOGY METHOD 06/26/2025 12:57 AM EDT [facility] pCO2, Arterial 36 32 - 45 mmHg LAB HEMATOLOGY METHOD 06/26/2025 12:57 AM EDT [facility] pO2, Arterial 152 >70 mmHg LAB HEMATOLOGY METHOD 06/26/2025 12:57 AM EDT [facility] SO2, Measured, Arterial 100(H) 94 - 98 % LAB HEMATOLOGY METHOD 06/26/2025 12:57 AM EDT [facility] Base Excess, Arterial -0.2 -2.0 - 3.0 mmol/L LAB HEMATOLOGY METHOD 06/26/2025 12:57 AM EDT [facility] Bicarbonate, Calculated, Arterial 24 22 - 26 mmol/L LAB HEMATOLOGY METHOD 06/26/2025 12:57 AM EDT [facility] Hematocrit, Whole Blood 33.9(L) 40.0 - 51.0 % LAB HEMATOLOGY METHOD 06/26/2025 12:57 AM EDT [facility] Sodium, Whole Blood 139 136 - 145 mmol/L LAB HEMATOLOGY METHOD 06/26/2025 12:57 AM EDT [facility] Potassium, Whole Blood 4.8 3.6 - 4.9 mmol/L LAB HEMATOLOGY METHOD 06/26/2025 12:57 AM EDT [facility] Chloride, Whole Blood 111(H) 97 - 107 mmol/L LAB HEMATOLOGY METHOD 06/26/2025 12:57 AM EDT [facility] Glucose, Whole Blood 144(H) 74 - 99 mg/dL LAB HEMATOLOGY METHOD 06/26/2025 12:57 AM EDT [facility] Ionized Calcium, Whole Blood 4.1(L) 4.6 - 5.1 mg/dL LAB HEMATOLOGY METHOD 06/26/2025 12:57 AM EDT [facility] Lactate, Arterial, Whole Blood 1.4 0.5 - 1.6 mmol/L LAB HEMATOLOGY METHOD 06/26/2025 12:57 AM EDT [facility] Blood Arterial blood specimen / Unknown Arterial Puncture / Unknown 06/26/2025 12:45 AM EDT 06/26/2025 12:54 AM EDT us Khushbu Gordon MD LAB BLOOD ORDERABLES Final Res ult [facility] [address] [place] [address] * (ABNORMAL) POCT glucose meter (06/25/2025 8:04 PM EDT) POCT Glucose 157(H) 74 - 99 mg/dL 06/25/2025 8:08 PM EDT [facility] Comment:Accuracy of [...] for testing. Comment 06/25/2025 8:08 PM EDT [facility] [employer] Technical Officer ID John Amaya 06/25/2025 8:08 PM EDT [facility] Device ID [id number] 06/25/2025 8:08 PM EDT [facility] Specimen Type POC Arterial 06/25/2025 8:08 PM EDT [facility] Blood Arterial blood specimen / Unknown 06/25/2025 8:04 PM EDT 06/25/2025 8:08 PM EDT us Khushbu Gordon MD LAB POINT OF CARE TE ST DOCKED DEVICE UNSOLICITED RESULTS Final Result [facility] [address] [place] [id number] * (ABNORMAL) CBC (06/25/2025 7:58 PM EDT) WBC Count 17.79(H) 3.70 - 10.30 10*3/uL LAB HEMATOLOGY METHOD 06/25/2025 8:24 PM EDT [facility] RBC Count 3.87(L) 4.60 - 6.10 10*6/uL LAB HEMATOLOGY METHOD 06/25/2025 8:24 PM EDT [facility] HGB 11.3(L) 13.7 - 17.5 g/dL LAB HEMATOLOGY METHOD 06/25/2025 8:24 PM EDT [facility] HCT 34.3(L) 40.0 - 51.0 % LAB HEMATOLOGY METHOD 06/25/2025 8:24 PM EDT [facility] Platelet Count 168 155 - 369 10*3/uL LAB HEMATOLOGY METHOD 06/25/2025 8:24 PM EDT [facility] MCV 89 79 - 98 fL LAB HEMATOLOGY METHOD 06/25/2025 8:24 PM EDT [facility] MCH 29.2 26.0 - 32.0 pg LAB HEMATOLOGY METHOD 06/25/2025 8:24 PM EDT [facility] MCHC 32.9 30.7 - 35.5 g/dL LAB HEMATOLOGY METHOD 06/25/2025 8:24 PM EDT [facility] RDW 14.0 11.5 - 14.5 % LAB HEMATOLOGY METHOD 06/25/2025 8:24 PM EDT [facility] MPV 10.9 8.8 - 12.5 fL LAB HEMATOLOGY METHOD 06/25/2025 8:24 PM EDT [facility] nRBC 0.0 <=0.0 per 100 WBCs LAB HEMATOLOGY METHOD 06/25/2025 8:24 PM EDT [facility] Blood Venous blood specimen / Unknown Venipuncture / Unknown 06/25/2025 7:58 PM EDT 06/25/2025 8:16 PM EDT us Khushbu Gordon MD LAB BLOOD ORDERABLES Final Res ult [facility] [address] [place] [address] * (ABNORMAL) Basic metabolic panel (06/25/2025 7:58 PM EDT) Glucose, Plasma 166(H) 74 - 99 mg/dL 06/25/2025 8:47 PM EDT [facility] BUN, Plasma 13 8 - 23 mg/dL 06/25/2025 8:47 PM EDT [facility] Creatinine, Plasma 0.61(L) 0.70 - 1.20 mg/dL 06/25/2025 8:47 PM EDT [facility] BUN/Creatinine Ratio 21 06/25/2025 8:47 PM EDT [facility] Sodium, Plasma 141 136 - 145 mmol/L 06/25/2025 8:47 PM EDT [facility] Potassium, Plasma 5.6(H) 3.6 - 4.9 mmol/L 06/25/2025 8:47 PM EDT [facility] Chloride, Plasma 108(H) 97 - 107 mmol/L 06/25/2025 8:47 PM EDT [facility] CO2, Plasma 22 22 - 29 mmol/L 06/25/2025 8:47 PM EDT [facility] Anion Gap 11 6 - 16 mmol/L 06/25/2025 8:47 PM EDT [facility] Total Calcium, Plasma 7.6(L) 8.9 - 10.2 mg/dL 06/25/2025 8:47 PM EDT [facility] eGFRcr 101.4 mL/min/1.7 3m*2 06/25/2025 8:47 PM EDT [facility] Comment:Reported eGFRcr in m L/min/1.73m2 is based the CKD-EPI 2020 equation that does not use a race coefficient. Blood Venous blood specimen / Unknown Venipuncture / Unknown 06/25/2025 7:58 PM EDT 06/25/2025 8:16 PM EDT us Khushbu Gordon MD LAB BLOOD ORDERABLES Final Res ult [facility] [address] [place] [address] * (ABNORMAL) Blood gas, arterial (06/25/2025 7:57 PM EDT) pH, Arterial 7.38 7.31 - 7.42 LAB HEMATOLOGY METHOD 06/25/2025 8:18 PM EDT [facility] pCO2, Arterial 41 32 - 45 mmHg LAB HEMATOLOGY METHOD 06/25/2025 8:18 PM EDT [facility] pO2, Arterial 136 >70 mmHg LAB HEMATOLOGY METHOD 06/25/2025 8:18 PM EDT [facility] SO2, Measured, Arterial 100(H) 94 - 98 % LAB HEMATOLOGY METHOD 06/25/2025 8:18 PM EDT [facility] Base Excess, Arterial -1.1 -2.0 - 3.0 mmol/L LAB HEMATOLOGY METHOD 06/25/2025 8:18 PM EDT [facility] Bicarbonate, Calculated, Arterial 24 22 - 26 mmol/L LAB HEMATOLOGY METHOD 06/25/2025 8:18 PM EDT [facility] Hematocrit, Whole Blood 34.4(L) 40.0 - 51.0 % LAB HEMATOLOGY METHOD 06/25/2025 8:18 PM EDT [facility] Sodium, Whole Blood 139 136 - 145 mmol/L LAB HEMATOLOGY METHOD 06/25/2025 8:18 PM EDT [facility] Potassium, Whole Blood 5.2(H) 3.6 - 4.9 mmol/L LAB HEMATOLOGY METHOD 06/25/2025 8:18 PM EDT [facility] Chloride, Whole Blood 110(H) 97 - 107 mmol/L LAB HEMATOLOGY METHOD 06/25/2025 8:18 PM EDT [facility] Glucose, Whole Blood 164(H) 74 - 99 mg/dL LAB HEMATOLOGY METHOD 06/25/2025 8:18 PM EDT [facility] Ionized Calcium, Whole Blood 4.1(L) 4.6 - 5.1 mg/dL LAB HEMATOLOGY METHOD 06/25/2025 8:18 PM EDT [facility] Lactate, Arterial, Whole Blood 1.4 0.5 - 1.6 mmol/L LAB HEMATOLOGY METHOD 06/25/2025 8:18 PM EDT [facility] Blood Arterial blood specimen / Unknown Arterial Puncture / Unknown 06/25/2025 7:57 PM EDT 06/25/2025 8:16 PM EDT Khushbu Gordon MD LAB BLOOD ORDERABLES Final Res ult [facility] [address] [place] [address] * Prepare Fresh Frozen Plasma: 1 Units (06/25/2025 6:34 PM EDT) Product Code [id number] CH BLOO D BANK Dispense Status Transfused BLOOD BANK Blood Expiration Date [id number] BLOOD BANK Unit Number [id number] B LOOD BANK Product Blood Type 6200 BLOOD BANK Blood Type A+ BLOOD BANK Blood Venous blood specimen / Unknown Khushbu Gordon MD BLOOD BANK PRODUCT ORDERABLES Final Result Performing Organization Address [facility] Co de Phone Number BLOOD BANK [address] [place] [address] * (ABNORMAL) Potassium, Plasma (06/25/2025 5:15 PM EDT) Potassium, Plasma 5.5(H) 3.6 - 4.9 mmol/L 06/25/2025 6:42 PM EDT [facility] Blood Venous blood specimen / Unknown Venipuncture / Unknown 06/25/2025 5:15 PM EDT 06/25/2025 6:20 PM EDT Khushbu Gordon MD LAB BLOOD ORDERABLES Final Res ult [facility] [address] [place] [address] * (ABNORMAL) Hematocrit (06/25/2025 5:15 PM EDT) Pathologist [facility] HCT 37.6(L) 40.0 - 51.0 % LAB HEMATOLOGY METHOD 06/25/2025 6:04 PM EDT [facility] Blood Venous blood specimen / Unknown Venipuncture / Unknown 06/25/2025 5:15 PM EDT 06/25/2025 5:55 PM EDT us Khushbu Gordon MD LAB BLOOD ORDERABLES Final Res ult [facility] [address] [place] [address] * (ABNORMAL) Hemoglobin (06/25/2025 5:15 PM EDT) [facility] HGB 12.7(L) 13.7 - 17.5 g/dL LAB HEMATOLOGY METHOD 06/25/2025 6:04 PM EDT [facility] Blood Venous blood specimen / Unknown Venipuncture / Unknown 06/25/2025 5:15 PM EDT 06/25/2025 5:55 PM EDT us Khushbu Gordon MD LAB BLOOD ORDERABLES Final Res ult [facility] [address] [place] [address] * (ABNORMAL) Blood gas, arterial (06/25/2025 5:14 PM EDT) pH, Arterial 7.35 7.31 - 7.42 LAB HEMATOLOGY METHOD 06/25/2025 5:25 PM EDT [facility] pCO2, Arterial 42 32 - 45 mmHg LAB HEMATOLOGY METHOD 06/25/2025 5:25 PM EDT [facility] pO2, Arterial 134 >70 mmHg LAB HEMATOLOGY METHOD 06/25/2025 5:25 PM EDT [facility] SO2, Measured, Arterial 100(H) 94 - 98 % LAB HEMATOLOGY METHOD 06/25/2025 5:25 PM EDT [facility] Base Excess, Arterial -2.4(L) -2.0 - 3.0 mmol/L LAB HEMATOLOGY METHOD 06/25/2025 5:25 PM EDT [facility] Bicarbonate, Calculated, Arterial 23 22 - 26 mmol/L LAB HEMATOLOGY METHOD 06/25/2025 5:25 PM EDT [facility] Hematocrit, Whole Blood 38.8(L) 40.0 - 51.0 % LAB HEMATOLOGY METHOD 06/25/2025 5:25 PM EDT [facility] Sodium, Whole Blood 139 136 - 145 mmol/L LAB HEMATOLOGY METHOD 06/25/2025 5:25 PM EDT [facility] Potassium, Whole Blood 5.2(H) 3.6 - 4.9 mmol/L LAB HEMATOLOGY METHOD 06/25/2025 5:25 PM EDT [facility] Chloride, Whole Blood 112(H) 97 - 107 mmol/L LAB HEMATOLOGY METHOD 06/25/2025 5:25 PM EDT [facility] Glucose, Whole Blood 168(H) 74 - 99 mg/dL LAB HEMATOLOGY METHOD 06/25/2025 5:25 PM EDT [facility] Ionized Calcium, Whole Blood 4.1(L) 4.6 - 5.1 mg/dL LAB HEMATOLOGY METHOD 06/25/2025 5:25 PM EDT [facility] Lactate, Arterial, Whole Blood 1.4 0.5 - 1.6 mmol/L LAB HEMATOLOGY METHOD 06/25/2025 5:25 PM EDT [facility] Blood Arterial blood specimen / Unknown Arterial Puncture / Unknown 06/25/2025 5:14 PM EDT 06/25/2025 5:24 PM EDT us Khushbu Gordon MD LAB BLOOD ORDERABLES Final Res ult [facility] [address] [place] [address] * (ABNORMAL) Blood gas panel, arterial (06/25/2025 3:47 PM EDT) pH, Arterial 7.35 7.31 - 7.42 LAB HEMATOLOGY METHOD 06/25/2025 4:13 PM EDT [facility] pCO2, Arterial 43 32 - 45 mmHg LAB HEMATOLOGY METHOD 06/25/2025 4:13 PM EDT [facility] pO2, Arterial 156 >70 mmHg LAB HEMATOLOGY METHOD 06/25/2025 4:13 PM EDT [facility] SO2, Measured, Arterial 100(H) 94 - 98 % LAB HEMATOLOGY METHOD 06/25/2025 4:13 PM EDT [facility] Base Excess, Arterial -1.7 -2.0 - 3.0 mmol/L LAB HEMATOLOGY METHOD 06/25/2025 4:13 PM EDT [facility] Bicarbonate, Calculated, Arterial 24 22 - 26 mmol/L LAB HEMATOLOGY METHOD 06/25/2025 4:13 PM EDT [facility] Hematocrit, Whole Blood 38.3(L) 40.0 - 51.0 % LAB HEMATOLOGY METHOD 06/25/2025 4:13 PM EDT [facility] Sodium, Whole Blood 139 136 - 145 mmol/L LAB HEMATOLOGY METHOD 06/25/2025 4:13 PM EDT [facility] Potassium, Whole Blood 4.9 3.6 - 4.9 mmol/L LAB HEMATOLOGY METHOD 06/25/2025 4:13 PM EDT [facility] Chloride, Whole Blood 111(H) 97 - 107 mmol/L LAB HEMATOLOGY METHOD 06/25/2025 4:13 PM EDT [facility] Glucose, Whole Blood 149(H) 74 - 99 mg/dL LAB HEMATOLOGY METHOD 06/25/2025 4:13 PM EDT [facility] Ionized Calcium, Whole Blood 4.2(L) 4.6 - 5.1 mg/dL LAB HEMATOLOGY METHOD 06/25/2025 4:13 PM EDT [facility] Lactate, Arterial, Whole Blood 1.3 0.5 - 1.6 mmol/L LAB HEMATOLOGY METHOD 06/25/2025 4:13 PM EDT [facility] Blood Arterial blood specimen / Unknown Arterial Puncture / Unknown 06/25/2025 3:47 PM EDT 06/25/2025 4:10 PM EDT us Khushbu Gordon MD LAB BLOOD ORDERABLES Final Res ult [facility] [address] [place] [address] * (ABNORMAL) TEG Global Hemostasis with Heparinase (06/25/2025 3:46 PM EDT) R >17.0(H) 4.6 - 9.1 min 06/25/2025 5:30 PM EDT [facility] R, Heparinase 7.0 4.3 - 8.3 min 06/25/2025 5:30 PM EDT [facility] K 2.3(H) 0.8 - 2.1 min 06/25/2025 5:30 PM EDT [facility] Angle 56.6(L) 63.0 - 78.0 degrees 06/25/2025 5:30 PM EDT [facility] MA 49.8(L) 52.0 - 69.0 mm 06/25/2025 5:[address] [facility] MA, Rapid 61.5 52.0 - 70.0 mm 06/25/2025 5:30 PM EDT [facility] MA, Fibrinogen 20.6 15.0 - 32.0 mm 06/25/2025 5:30 PM EDT [facility] FLEV 375.9 278.0 - 581.0 mg/dl 06/25/2025 5:[address] [facility] Blood Venous blood specimen / Unknown Venipuncture / Unknown 06/25/2025 3:46 PM EDT 06/25/2025 4:28 PM EDT us Khushbu Gordon MD LAB BLOOD ORDERABLES Final Res ult [facility] [address] [place] [address] * (ABNORMAL) TEG Global Hemostasis with Lysis (06/25/2025 3:46 PM EDT) R, Lysis >17.0(H) 4.6 - 9.1 min 06/25/2025 6:11 PM EDT [facility] MA, Rapid, Lysis 60.2 52.0 - 70.0 mm 06/25/2025 6:11 PM EDT [facility] MA, Fibrinogen, Lysis 18.6 15.0 - 32.0 mm 06/25/2025 6:11 PM EDT [facility] LY30 1.2 0.0 - 2.6 % 06/25/2025 6:11 PM EDT [facility] Blood Venous blood specimen / Unknown Venipuncture / Unknown 06/25/2025 3:46 PM EDT 06/25/2025 4:28 PM EDT us Khushbu Gordon MD LAB BLOOD ORDERABLES Final Res ult Performing Organization Address City/[facility]/ZIP Co de Phone Number [facility] [address] [place] [address] * (ABNORMAL) POCT glucose meter (06/25/2025 3:26 [...] Comment 06/25/2025 3:28 PM EDT [facility] Soil Science Technical Officer ID Betito Gold 06/25/2025 3:28 PM EDT [facility] Device ID [id number] 06/25/2025 3:28 PM EDT [facility] Specimen Type POC Capillary 06/25/2025 3:28 PM EDT [facility] Blood Capillary blood specimen / Unknown 06/25/2025 3:26 PM EDT 06/25/2025 3:28 PM EDT us Khushbu Gordon MD LAB POINT OF CARE TE ST DOCKED DEVICE UNSOLICITED RESULTS Final Result Performing Organization Address City/[facility]/ZIP Co de Phone Number [facility] [address] [place] [address] * XR Abdomen 1 View (06/25/2025 2:16 [...] of the abdomen. COMPARISON: None. FINDINGS: Limited [id number] abdominal radiograph for the purpose of locating tube position. The tip of the enteric tube is in the proximal stomach. The proximal side port is in the distal esophagus. Procedure Note Oniel Morgan MD - 06/25/2025 CLINICAL INDICATION: OG confuirmation TECHNIQUE: Supine radiograph of the abdomen. COMPARISON: None. FINDINGS: Limited [id number] abdominal radiograph for the purpose of locatingtube [...] Oniel Morgan MD on 06/25/2025 2:27 PM Khushbu Gordon MD IMG XR PROCEDURES [...] 04/09/2025. FINDINGS: Interval placement of right IJ [place] catheter with tip terminating over the main [...] 04/09/2025. FINDINGS: Interval placement of right IJ [place] catheter with tip terminatingover the main pulmonary [...] Michel Dior MD on 06/25/2025 2:54 PM us Khushbu Gordon MD IMG XR PROCEDURES Final Result * OK CRITICAL CARE, E/M 30-74 MINUTES (06/25/2025 1:22 [...] LAB HEMATOLOGY METHOD 06/25/2025 1:45 PM EDT [facility] pCO2, Mixed Venous 57(H) 40 - 55 mmHg LAB HEMATOLOGY METHOD 06/25/2025 1:45 PM EDT [facility] pO2, Mixed Venous 38 25 - 40 mmHg LAB HEMATOLOGY METHOD 06/25/2025 1:45 PM EDT [facility] SO2, Measured, Mixed Venous 68 65 - 80 % LAB HEMATOLOGY METHOD 06/25/2025 1:45 PM EDT [facility] Base Excess, Mixed Venous -1.4 -2.0 - 3.0 mmol/L LAB HEMATOLOGY METHOD 06/25/2025 1:45 PM EDT [facility] Bicarbonate, Calculated, Mixed Venous 26 22 - 26 mmol/L LAB HEMATOLOGY METHOD 06/25/2025 1:45 PM EDT [facility] Hematocrit, Whole Blood 34.4(L) 40.0 - 51.0 % LAB HEMATOLOGY METHOD 06/25/2025 1:45 PM EDT [facility] Sodium, Whole Blood 141 136 - 145 mmol/L LAB HEMATOLOGY METHOD 06/25/2025 1:45 PM EDT [facility] Potassium, Whole Blood 3.2(L) 3.6 - 4.9 mmol/L LAB HEMATOLOGY METHOD 06/25/2025 1:45 PM EDT [facility] Chloride, Whole Blood 110(H) 97 - 107 mmol/L LAB HEMATOLOGY METHOD 06/25/2025 1:45 PM EDT [facility] Ionized Calcium, Whole Blood 4.2(L) 4.6 - 5.1 mg/dL LAB HEMATOLOGY METHOD 06/25/2025 1:45 PM EDT [facility] Glucose, Whole Blood 183(H) 74 - 99 mg/dL LAB HEMATOLOGY METHOD 06/25/2025 1:45 PM EDT [facility] Blood Mixed venous blood specimen / Unknown 06/25/2025 1:22 PM EDT 06/25/2025 1:41 PM EDT us Khushbu Gordon MD LAB BLOOD ORDERABLES Final Res ult [facility] [facility] [address] [place] [address] * (ABNORMAL) Blood gas, arterial (06/25/2025 1:22 PM EDT) pH, Arterial 7.29(L) 7.31 - 7.42 LAB HEMATOLOGY METHOD 06/25/2025 1:46 PM EDT [facility] pCO2, Arterial 53(H) 32 - 45 mmHg LAB HEMATOLOGY METHOD 06/25/2025 1:46 PM EDT [facility] pO2, Arterial 102 >70 mmHg LAB HEMATOLOGY METHOD 06/25/2025 1:46 PM EDT [facility] SO2, Measured, Arterial 98 94 - 98 % LAB HEMATOLOGY METHOD 06/25/2025 1:46 PM EDT [facility] Base Excess, Arterial -1.9 -2.0 - 3.0 mmol/L LAB HEMATOLOGY METHOD 06/25/2025 1:46 PM EDT [facility] Bicarbonate, Calculated, Arterial 25 22 - 26 mmol/L LAB HEMATOLOGY METHOD 06/25/2025 1:46 PM EDT [facility] Hematocrit, Whole Blood 34.0(L) 40.0 - 51.0 % LAB HEMATOLOGY METHOD 06/25/2025 1:46 PM EDT [facility] Sodium, Whole Blood 142 136 - 145 mmol/L LAB HEMATOLOGY METHOD 06/25/2025 1:46 PM EDT [facility] Potassium, Whole Blood 3.2(L) 3.6 - 4.9 mmol/L LAB HEMATOLOGY METHOD 06/25/2025 1:46 PM EDT [facility] Chloride, Whole Blood 109(H) 97 - 107 mmol/L LAB HEMATOLOGY METHOD 06/25/2025 1:46 PM EDT [facility] Glucose, Whole Blood 189(H) 74 - 99 mg/dL LAB HEMATOLOGY METHOD 06/25/2025 1:46 PM EDT [facility] Ionized Calcium, Whole Blood 4.1(L) 4.6 - 5.1 mg/dL LAB HEMATOLOGY METHOD 06/25/2025 1:46 PM EDT [facility] Lactate, Arterial, Whole Blood 1.0 0.5 - 1.6 mmol/L LAB HEMATOLOGY METHOD 06/25/2025 1:46 PM EDT [facility] Blood Arterial blood specimen / Unknown Arterial Puncture / Unknown 06/25/2025 1:22 PM EDT 06/25/2025 1:42 PM EDT us Khushbu Gordon MD LAB BLOOD ORDERABLES Final Res ult [facility] [address] [place] [address] * (ABNORMAL) APTT (06/25/2025 1:21 PM EDT) aPTT 49(H) 25 - 35 sec LAB COAGULATION METHOD 06/25/2025 2:47 PM EDT [facility] Blood Venous blood specimen / Unknown Venipuncture / Unknown 06/25/2025 1:21 PM EDT 06/25/2025 1:41 PM EDT Khushbu Gordon MD LAB BLOOD ORDERABLES Final Res ult Performing Organization Address [facility] Co de Phone Number [facility] [address] [place] [address] * (ABNORMAL) Protime-INR (06/25/2025 1:21 PM EDT) Prothrombin Time 16.9(H) 12.0 - 14.3 sec LAB COAGULATION METHOD 06/25/2025 2:47 PM EDT [facility] INR 1.3(H) 0.9 - 1.1 LAB COAGULATION METHOD 06/25/2025 2:47 PM EDT [facility] Blood Venous blood specimen / Unknown Venipuncture / Unknown 06/25/2025 1:21 PM EDT 06/25/2025 1:41 PM EDT Narrative [facility] - 06/25/2025 2:47 PM EDT OPTIMAL INR RANGES FOR PATIENT ON ORAL ANTICOAGULANT THERAPY Prevention of venous thromboembolism INR 2.0 to 3.0 In patients with heart disease: Atrial fibrillation INR 2.0 to 3.0 Valvular heart disease INR 2.0 to 3.0 Tissue heart valves INR 2.0 to 3.0 Mechanical prosthetic valves INR 2.5 to 3.5 Prevention of recurrent CO INR 2.5 to 3.5 us Khushbu Gordon MD LAB BLOOD ORDERABLES Final Res ult Performing Organization Address [facility] Co de Phone Number [facility] [address] [place] [address] * Phosphorus (06/25/2025 1:21 PM EDT) Phosphorus, Plasma 3.1 2.5 - 4.5 mg/dL 06/25/2025 2:10 PM EDT [facility] Blood Venous blood specimen / Unknown Venipuncture / Unknown 06/25/2025 1:21 PM EDT 06/25/2025 1:41 PM EDT us Khushbu Gordon MD LAB BLOOD ORDERABLES Final Res ult Performing Organization Address [facility] Co de Phone Number [facility] [address] [place] [address] * (ABNORMAL) Magnesium (06/25/2025 1:21 PM EDT) Magnesium, Plasma 3.0(H) 1.9 - 2.4 mg/dL 06/25/2025 2:10 PM EDT [facility] Blood Venous blood specimen / Unknown Venipuncture / Unknown 06/25/2025 1:21 PM EDT 06/25/2025 1:41 PM EDT us Khushbu Gordon MD LAB BLOOD ORDERABLES Final Res ult Performing Organization Address [facility] Co de Phone Number [facility] [address] [place] [address] * (ABNORMAL) Basic metabolic panel (06/25/2025 1:21 PM EDT) Glucose, Plasma 203(H) 74 - 99 mg/dL 06/25/2025 2:10 PM EDT [facility] BUN, Plasma 11 8 - 23 mg/dL 06/25/2025 2:10 PM EDT [facility] Creatinine, Plasma 0.56(L) 0.70 - 1.20 mg/dL 06/25/2025 2:10 PM EDT [facility] BUN/Creatinine Ratio 20 06/25/2025 2:10 PM EDT [facility] Sodium, Plasma 141 136 - 145 mmol/L 06/25/2025 2:10 PM EDT [facility] Potassium, Plasma 3.3(L) 3.6 - 4.9 mmol/L 06/25/2025 2:10 PM EDT [facility] Chloride, Plasma 108(H) 97 - 107 mmol/L 06/25/2025 2:10 PM EDT [facility] CO2, Plasma 21(L) 22 - 29 mmol/L 06/25/2025 2:10 PM EDT [facility] Anion Gap 12 6 - 16 mmol/L 06/25/2025 2:10 PM EDT [facility] Total Calcium, Plasma 7.2(L) 8.9 - 10.2 mg/dL 06/25/2025 2:10 PM EDT [facility] eGFRcr 104.1 mL/min/1.7 3m*2 06/25/2025 2:10 PM EDT [facility] Comment:Reported eGFRcr in m L/min/1.73m2 is based the CKD-EPI 2020 equation that does not use a race coefficient. Blood Venous blood specimen / Unknown Venipuncture / Unknown 06/25/2025 1:21 PM EDT 06/25/2025 1:41 PM EDT us Khushbu Gordon MD LAB BLOOD ORDERABLES Final Res ult [facility] [address] [place] [address] * (ABNORMAL) CBC (06/25/2025 1:21 PM EDT) WBC Count 13.79(H) 3.70 - 10.30 10*3/uL LAB HEMATOLOGY METHOD 06/25/2025 1:50 PM EDT [facility] RBC Count 3.69(L) 4.60 - 6.10 10*6/uL LAB HEMATOLOGY METHOD 06/25/2025 1:50 PM EDT [facility] HGB 11.0(L) 13.7 - 17.5 g/dL LAB HEMATOLOGY METHOD 06/25/2025 1:50 PM EDT [facility] HCT 32.9(L) 40.0 - 51.0 % LAB HEMATOLOGY METHOD 06/25/2025 1:50 PM EDT [facility] Platelet Count 127(L) 155 - 369 10*3/uL LAB HEMATOLOGY METHOD 06/25/2025 1:50 PM EDT [facility] MCV 89 79 - 98 fL LAB HEMATOLOGY METHOD 06/25/2025 1:50 PM EDT [facility] MCH 29.8 26.0 - 32.0 pg LAB HEMATOLOGY METHOD 06/25/2025 1:50 PM EDT [facility] MCHC 33.4 30.7 - 35.5 g/dL LAB HEMATOLOGY METHOD 06/25/2025 1:50 PM EDT [facility] RDW 13.7 11.5 - 14.5 % LAB HEMATOLOGY METHOD 06/25/2025 1:50 PM EDT [facility] MPV 11.2 8.8 - 12.5 fL LAB HEMATOLOGY METHOD 06/25/2025 1:50 PM EDT [facility] nRBC 0.0 <=0.0 per 100 WBCs LAB HEMATOLOGY METHOD 06/25/2025 1:50 PM EDT [facility] Blood Venous blood specimen / Unknown Venipuncture / Unknown 06/25/2025 1:21 PM EDT 06/25/2025 1:41 PM EDT Khushbu Gordon MD LAB BLOOD ORDERABLES Final Res ult [facility] [address] [place] [address] * Jesús auris Surveillance by PCR (06/25/2025 1:14 PM EDT) Jesús auris PCR Result Not Detected Not Detected 06/26/2025 3:18 PM EDT [facility] Swab (Axilla and Groin) Non-blood Collection / Unknown 06/25/2025 1:14 PM EDT 06/25/2025 2:25 PM EDT Narrative [facility] - 06/26/2025 3:18 PM EDT This PCR assay was developed and its performance characteristics determined by [facility] as appropriate for clinical purposes. This assay has not been cleared or approved by the FDA, but is performed in a CLIA regulated laboratory that is qualified to perform high-complexity testing. us Khushbu Gordon MD LAB MICROBIOLOGY - GENERAL ORD ERABLES Final Result [facility] [address] [place] [address] * Multi Drug Resistance Test (06/25/2025 1:14 PM EDT) Culture No growth at day 1 06/26/2025 3:[address] [facility] Swab (Nares and Nereida Rectal) Non-blood Collection / Unknown 06/25/2025 1:14 PM EDT 06/25/2025 2:25 PM EDT Narrative [facility] - 06/26/2025 3:47 PM EDT This test was developed and its performance characteristics determined by the [facility]. Although the media is FDA-approved, it is not FDA-approved for all specimen types submitted. The FDA has determined that such clearance or approval is not necessary. This test is used for surveillance purposes. It should not be regarded as investigational or for research. The [facility] is certified under the Clinical Laboratory Improvement Amendments of 1988 (CLIA-88) as qualified to perform high complexity clinical laboratory testing. Khushbu Gordon MD LAB MICROBIOLOGY - GENERAL ORD ERABLES Final Result [facility] [address] [place] [address] * ECG Adult - Upon Admissoin to CVICU (06/25/2025 12:54 PM EDT) EKG DIAGNOSIS CLASS Abnormal MUSE ECG Ventricular Rate 114 BPM MUSE ECG QRSD Interval 86 ms MUSE ECG QT Interval 338 ms MUSE ECG QTC Interval 465 ms MUSE ECG R [place] 41 degrees MUSE ECG T Wave [place] 113 degrees MUSE ECG Diagnosis Atrial fibrillation with rapid ventricular response with occasional ventricular-pace d complexes (possible mis-sensing) MUSE ECG Diagnosis ST & T wave abnormality, consider lateral ischemia MUSE ECG Diagnosis MUSE ECG Diagnosis Recommend correlation with pacer interrogation MUSE ECG Diagnosis MUSE ECG Diagnosis Confirmed by aJmes Weber ([id number]) on 06/25/2025 9:03:24 PM MUSE ECG 06/25/2025 12:5 4 PM EDT 06/25/2025 9:03 PM EDT Khushbu Gordon MD ECG ORDERABLES Final Result MUSE ECG * QPLUS (06/25/2025 11:56 AM EDT) Clot Time 157 104 - 166 Seconds 06/25/2025 12:15 PM EDT [facility] Clot Time Ratio 1.1 0.8 - 1.2 12:15 PM EDT [facility] Comment:The Clot Time Ratio (CTR) is a calculated parameter. CTR values of 0.8 1.2 are demonstrated to be typical of n ormal patient samples. Samples with CTR values > 1.4 are indicative of prolongation of the intrinsic pathway clotting time, likely due to the influence of unfractionated heparin. POCT Clot Stiffness 20.8 13.0 - 33.2 hectoPascals 06/25/2025 12:15 PM EDT [facility] Platelet Contribution to Clot Stiffnes 17.7 11.9 - 29.8 hectoPascals 06/25/2025 12:15 PM EDT [facility] Fibrinogen Contribution to Clot Stiffness 3.1 1.0 - 3.7 hectoPascals 06/25/2025 12:15 PM EDT [facility] Heparinase Clot Time 138 103 - 153 Seconds 06/25/2025 12:15 PM EDT [facility] So[employer] Technical Officer ID Elder Huffman 06/25/2025 12:15 PM EDT [facility] Device ID [id number] 06/25/2025 12:15 PM EDT [facility] Whole Blood 06/25/2025 11:5 6 AM EDT 06/25/2025 12:15 PM EDT Khushbu Gordon MD LAB POINT OF CARE TE ST DOCKED DEVICE UNSOLICITED RESULTS Final Result [facility] [address] [place] [address] * (ABNORMAL) POCT arterial blood gas gem (06/25/2025 11:49 AM EDT) pH, Arterial 7.41 7.31 - 7.42 06/25/2025 11:56 AM [facility] pCO2, Arterial 39 32 - 45 mm Hg 06/25/2025 11:56 AM [facility] pO2, Arterial 228 >70 mm Hg 06/25/2025 11:56 AM [facility] SO2, Arterial 99(H) 94 - 98 % 06/25/2025 11:56 AM [facility] Base Excess, Arterial 0.1 -2 - 3 mmol/L 06/25/2025 11:56 AM [facility] HCO3, Arterial 24.7 22 - 26 mmol/L 06/25/2025 11:56 AM [facility] Total Hemoglobin, Arterial, Whole Blood 11.0(L) 13.7 - 17.5 g/dL 06/25/2025 11:56 AM [facility] Hematocrit, Arterial 33.0(L) 40 - 51.0 % 06/25/2025 11:56 AM [facility] Sodium, Arterial 138 136 - 145 mmol/L 06/25/2025 11:56 AM [facility] Potassium, Arterial 3.5(L) 3.6 - 4.9 mmol/L 06/25/2025 11:56 AM [facility] Chloride, Whole Blood 106 97 - 107 mmol/L 06/25/2025 11:56 AM [facility] Glucose, Arterial 197(H) 74 - 99 mg/dL 06/25/2025 11:56 AM [facility] Ionized Calcium, Arterial 4.1(L) 4.6 - 5.1 mg/dL 06/25/2025 11:56 AM [facility] Lactate, Arterial 1.6 0.5 - 1.6 mmol/L 06/25/2025 11:56 AM [facility] Body Temperature 37.0 Celsius 06/25/2025 11:56 AM [facility] pH, Temp Corrected, Arterial 7.41 7.31 - 7.42 06/25/2025 11:56 AM [facility] pCO2, Temp Corrected, Arterial 39 32 - 45 mm Hg 06/25/2025 11:56 AM [facility] pO2, Temp Corrected, Arterial 228 >70 mm Hg 06/25/2025 11:56 AM EDT [facility] Soil Science Technical Officer ID Orlando Harris 06/25/2025 11:56 AM EDT [facility] Blood Whole blood specimen / Unknown 06/25/2025 11:49 AM EDT 06/25/2025 11:56 AM EDT Khushbu Gordon MD LAB POINT OF CARE TE ST DOCKED DEVICE UNSOLICITED RESULTS Final Result Performing Organization Address City/[facility]/ZIP Co de Phone Number [facility] [address] [place] [address] * POCT ACT (06/25/2025 11:40 AM EDT) ACT+ (HIGH RANGE) 115 68 - 600 Seconds 06/28/2025 5:10 PM EST [facility] Soil Science Technical Officer ID Karla Hendrickson 06/28/2025 5:10 PM EST [facility] ACT Device ID [id number] 06/28/2025 5:10 PM EST [facility] Comment 06/28/2025 5:10 PM EST [facility] Comment: ACT performed by staff at [...] 11:40 AM EDT 06/28/2025 5:10 PM EST Khushbu Gordon MD LAB POINT OF CARE TE ST DOCKED DEVICE UNSOLICITED RESULTS Final Result Performing Organization Address City/[facility] Co de Phone Number [facility] [address] [place] [address] * (ABNORMAL) POCT arterial blood gas gem (06/25/2025 11:02 AM EDT) pH, Arterial 7.46(H) 7.31 - 7.42 06/25/2025 11:04 AM EDT [facility] pCO2, Arterial 36 32 - 45 mm Hg 06/25/2025 11:04 AM EDT [facility] pO2, Arterial 271 >70 mm Hg 06/25/2025 11:04 AM [facility] SO2, Arterial 100(H) 94 - 98 % 06/25/2025 11:04 AM [facility] Base Excess, Arterial 1.8 -2 - 3 mmol/L 06/25/2025 11:04 AM [facility] HCO3, Arterial 25.6 22 - 26 mmol/L 06/25/2025 11:04 AM [facility] Total Hemoglobin, Arterial, Whole Blood 9.5(L) 13.7 - 17.5 g/dL 06/25/2025 11:04 AM [facility] Hematocrit, Arterial 29.0(L) 40 - 51.0 % 06/25/2025 11:04 AM [facility] Sodium, Arterial 139 136 - 145 mmol/L 06/25/2025 11:04 AM [facility] Potassium, Arterial 3.9 3.6 - 4.9 mmol/L 06/25/2025 11:04 AM [facility] Chloride, Whole Blood 106 97 - 107 mmol/L 06/25/2025 11:04 AM [facility] Glucose, Arterial 196(H) 74 - 99 mg/dL 06/25/2025 11:04 AM [facility] Ionized Calcium, Arterial 4.1(L) 4.6 - 5.1 mg/dL 06/25/2025 11:04 AM [facility] Lactate, Arterial 0.9 0.5 - 1.6 mmol/L 06/25/2025 11:04 AM [facility] Body Temperature 37.0 Celsius 06/25/2025 11:04 AM [facility] pH, Temp Corrected, Arterial 7.46(H) 7.31 - 7.42 06/25/2025 11:04 AM [facility] pCO2, Temp Corrected, Arterial 36 32 - 45 mm Hg 06/25/2025 11:04 AM [facility] pO2, Temp Corrected, Arterial 271 >70 mm Hg 06/25/2025 11:04 AM [facility] Soil Science Technical Officer ID Madhavi, Karla 06/25/2025 11:04 AM [facility] Blood Whole blood specimen / Unknown 06/25/2025 11:02 AM EDT 06/25/2025 11:04 AM EDT us Khushbu Gordon MD LAB POINT OF CARE TE ST DOCKED DEVICE UNSOLICITED RESULTS Final Result Performing Organization Address [facility] de Phone Number [facility] [address] [place] [address] * POCT ACT (06/25/2025 10:57 AM EDT) ACT+ (HIGH RANGE) 521 68 - 600 Seconds 06/28/2025 5:10 PM EST [facility] Soil [employer] Technical Officer ID Karla Hendrickson 06/28/2025 5:10 PM EST [facility] ACT Device ID [id number] 06/28/2025 5:10 PM EST [facility] Comment 06/28/2025 5:10 PM EST [facility] Comment: ACT performed by staff at [...] 10:57 AM EDT 06/28/2025 5:10 PM EST Khushbu Gordon MD LAB POINT OF CARE TE ST DOCKED DEVICE UNSOLICITED RESULTS Final Result Performing Organization Address [facility] de Phone Number [facility] [address] [facility] [address] [place] [address] * (ABNORMAL) POCT arterial blood gas gem (06/25/2025 10:33 AM EDT) pH, Arterial 7.43(H) 7.31 - 7.42 06/25/2025 10:35 AM EDT [facility] pCO2, Arterial 39 32 - 45 mm Hg 06/25/2025 10:35 AM EDT [facility] pO2, Arterial 286 >70 mm Hg 06/25/2025 10:35 AM EDT [facility] SO2, Arterial 100(H) 94 - 98 % 06/25/2025 10:35 AM EDT [facility] Base Excess, Arterial 1.5 -2 - 3 mmol/L 06/25/2025 10:35 AM [facility] HCO3, Arterial 25.9 22 - 26 mmol/L 06/25/2025 10:35 AM [facility] Total Hemoglobin, Arterial, Whole Blood 9.4(L) 13.7 - 17.5 g/dL 06/25/2025 10:35 AM [facility] Hematocrit, Arterial 28.0(L) 40 - 51.0 % 06/25/2025 10:35 AM [facility] Sodium, Arterial 139 136 - 145 mmol/L 06/25/2025 10:35 AM [facility] Potassium, Arterial 3.9 3.6 - 4.9 mmol/L 06/25/2025 10:35 AM [facility] Chloride, Whole Blood 105 97 - 107 mmol/L 06/25/2025 10:35 AM [facility] Glucose, Arterial 202(H) 74 - 99 mg/dL 06/25/2025 10:35 AM [facility] Ionized Calcium, Arterial 4.2(L) 4.6 - 5.1 mg/dL 06/25/2025 10:35 AM [facility] Lactate, Arterial 0.6 0.5 - 1.6 mmol/L 06/25/2025 10:35 AM [facility] Body Temperature 37.0 Celsius 06/25/2025 10:35 AM [facility] pH, Temp Corrected, Arterial 7.43(H) 7.31 - 7.42 06/25/2025 10:35 AM [facility] pCO2, Temp Corrected, Arterial 39 32 - 45 mm Hg 06/25/2025 10:35 AM [facility] pO2, Temp Corrected, Arterial 286 >70 mm Hg 06/25/2025 10:35 AM [facility] Soil Science Technical Officer ID Madhavi, Karla 06/25/2025 10:35 AM [facility] Blood Whole blood specimen / Unknown 06/25/2025 10:33 AM EDT 06/25/2025 10:35 AM T us Khushbu Gordon MD LAB POINT OF CARE TE ST DOCKED DEVICE UNSOLICITED RESULTS Final Result Performing Organization Address City/[facility]/ZIP Co de Phone Number [facility] [address] [place] [address] * (ABNORMAL) POCT ACT (06/25/2025 10:27 AM EDT) ACT+ (HIGH RANGE) >600(H) 68 - 600 Seconds 06/28/2025 5:10 PM EST [facility] Soil Science Technical Officer ID Karla Hendrickson 06/28/2025 5:10 PM EST [facility] ACT Device ID [id number] 06/28/2025 5:10 PM EST [facility] Comment 06/28/2025 5:[address] [facility] Comment: ACT performed by staff at point [...] UNSOLICITED RESULTS Final Result Performing Organization Address [facility] Co de Phone Number [facility] [address] [facility] [address] [place] [address] * (ABNORMAL) POCT arterial blood gas gem (06/25/2025 10:03 AM EDT) pH, Arterial 7.40 7.31 - 7.42 06/25/2025 10:04 AM EDT [facility] pCO2, Arterial 44 32 - 45 mm Hg 06/25/2025 10:04 AM EDT [facility] pO2, Arterial 332 >70 mm Hg 06/25/2025 10:04 AM EDT [facility] SO2, Arterial 100(H) 94 - 98 % 06/25/2025 10:04 AM EDT [facility] Base Excess, Arterial 2.2 -2 - 3 mmol/L 06/25/2025 10:04 AM EDT [facility] HCO3, Arterial 27.3(H) 22 - 26 mmol/L 06/25/2025 10:04 AM EDT [facility] Total Hemoglobin, Arterial, Whole Blood 9.1(L) 13.7 - 17.5 g/dL 06/25/2025 10:04 AM EDT [facility] Hematocrit, Arterial 27.0(L) 40 - 51.0 % 06/25/2025 10:04 AM EDT [facility] Sodium, Arterial 139 136 - 145 mmol/L 06/25/2025 10:04 AM EDT [facility] Potassium, Arterial 3.8 3.6 - 4.9 mmol/L 06/25/2025 10:04 AM EDT [facility] Chloride, Whole Blood 104 97 - 107 mmol/L 06/25/2025 10:04 AM EDT [facility] Glucose, Arterial 176(H) 74 - 99 mg/dL 06/25/2025 10:04 AM T [facility] Ionized Calcium, Arterial 4.2(L) 4.6 - 5.1 mg/dL 06/25/2025 10:04 AM EDT [facility] Lactate, Arterial 0.6 0.5 - 1.6 mmol/L 06/25/2025 10:04 AM EDT [facility] Body Temperature 37.0 Celsius 06/25/2025 10:04 AM T [facility] pH, Temp Corrected, Arterial 7.40 7.31 - 7.42 06/25/2025 10:04 AM T [facility] pCO2, Temp Corrected, Arterial 44 32 - 45 mm Hg 06/25/2025 10:04 AM EDT [facility] pO2, Temp Corrected, Arterial 332 >70 mm Hg 06/25/2025 10:04 AM EDT [facility] Soil Science Technical Officer ID Karla Hendrickson 06/25/2025 10:04 AM EDT [facility] Blood Whole blood specimen / Unknown 06/25/2025 10:03 AM EDT 06/25/2025 10:04 AM EDT us Khushbu Gordon MD LAB POINT OF CARE TE ST DOCKED DEVICE UNSOLICITED RESULTS Final Result [facility] [address] [place] [id number] * (ABNORMAL) POCT ACT (06/25/2025 9:55 AM EDT) ACT+ (HIGH RANGE) >600(H) 68 - 600 Seconds 06/28/2025 5:09 PM EST [facility] [employer] Technical Officer ID Karla Hendrickson 06/28/2025 5:09 PM EST [facility] ACT Device ID [id number] 06/28/2025 5:09 PM EST [facility] Comment 06/28/2025 5:09 PM EST [facility] Comment: ACT performed by staff at [...] 9:55 AM EDT 06/28/2025 5:09 PM EST Khushbu Gordon MD LAB POINT OF CARE TE ST DOCKED DEVICE UNSOLICITED RESULTS Final Result [facility] [address] [facility] [address] [place] [address] * Surgical Pathology Exam (06/25/2025 9:50 AM EDT) Case Report Surgical Pathology Case: [id number] Authorizing Provider: Khushbu Gordon MD Collected: 06/25/2025 0950 Ordering Location: [facility] OPERATING ROOM Received: 06/25/2025 1300 Pathologist: Fadi Hickey DO Specimen: Heart, posterior mitral valve leaflets 06/28/2025 1:49 PM EST [facility] Final Diagnosis POSTERIOR MITRAL VALVE LEAFLETS, REPAIR: - VALVULAR TISSUE WITH DEGENERATIVE CHANGES. - NEGATIVE FOR VEGETATIONS OR SIGNIFICANT INFLAMMATION. 06/28/2025 1:49 PM EST [facility] at 1349 EST Clinical Information Mitral valve insufficiency, unspecified etiology [I34.0] 06/28/2025 1:49 PM EST [facility] Gross Description A. POSTERIOR MITRAL VALVE LEAFLETS Received in formalin labeled posterior mitral valve leaflets is a portion of white-larios filiform fibrous tissue measuring 3.2 x 1.5 x 0.3 cm. The specimen is serially sectioned and entirely submitted in cassette A1. Cold Time: <1m Odessa Goodman 06/28/2025 1:49 PM [facility] Note: A resident was involved in the service. I attest I examined the relevant preparations for the specimens and confirmed the diagnosis or interpretation. 06/28/2025 1:49 PM [facility] Tissue Heart structure / Unknown 06/25/2025 9:50 AM EDT 06/25/2025 1:00 PM EDT Comment:Pre-op diagnosis: Mitral valve insufficiency, unspecified etiology [I34.0] us Khushbu Gordon MD LAB PATHOLOGY ORDERABLES Final Result [facility] [address] [place] [address] * (ABNORMAL) POCT arterial blood gas gem (06/25/2025 9:33 AM EDT) pH, Arterial 7.40 7.31 - 7.42 06/25/2025 9:34 AM EDT [facility] pCO2, Arterial 43 32 - 45 mm Hg 06/25/2025 9:34 AM EDT [facility] pO2, Arterial 282 >70 mm Hg 06/25/2025 9:34 AM EDT [facility] SO2, Arterial 100(H) 94 - 98 % 06/25/2025 9:34 AM EDT [facility] Base Excess, Arterial 1.6 -2 - 3 mmol/L 06/25/2025 9:34 AM EDT [facility] HCO3, Arterial 26.6(H) 22 - 26 mmol/L 06/25/2025 9:34 AM EDT [facility] Total Hemoglobin, Arterial, Whole Blood 8.5(L) 13.7 - 17.5 g/dL 06/25/2025 9:34 AM EDT [facility] Hematocrit, Arterial 26.0(L) 40 - 51.0 % 06/25/2025 9:34 AM EDT [facility] Sodium, Arterial 137 136 - 145 mmol/L 06/25/2025 9:34 AM EDT [facility] Potassium, Arterial 4.3 3.6 - 4.9 mmol/L 06/25/2025 9:34 AM EDT [facility] Chloride, Whole Blood 106 97 - 107 mmol/L 06/25/2025 9:34 AM EDT [facility] Glucose, Arterial 136(H) 74 - 99 mg/dL 06/25/2025 9:34 AM EDT [facility] Ionized Calcium, Arterial 3.9(L) 4.6 - 5.1 mg/dL 06/25/2025 9:34 AM EDT [facility] Lactate, Arterial 0.6 0.5 - 1.6 mmol/L 06/25/2025 9:34 AM EDT [facility] Body Temperature 37.0 Celsius 06/25/2025 9:34 AM EDT [facility] pH, Temp Corrected, Arterial 7.40 7.31 - 7.42 06/25/2025 9:34 AM EDT [facility] pCO2, Temp Corrected, Arterial 43 32 - 45 mm Hg 06/25/2025 9:34 AM EDT [facility] pO2, Temp Corrected, Arterial 282 >70 mm Hg 06/25/2025 9:34 AM EDT [facility] Soil Science Technical Officer ID Karla Hendrickson 06/25/2025 9:34 AM EDT [facility] Blood Whole blood specimen / Unknown 06/25/2025 9:33 AM EDT 06/25/2025 9:34 AM EDT Khushbu Gordon MD LAB POINT OF CARE TE ST DOCKED DEVICE UNSOLICITED RESULTS Final Result [facility] [address] [place] [address] * POCT ACT (06/25/2025 9:26 AM EDT) ACT+ (HIGH RANGE) 575 68 - 600 Seconds 06/28/2025 5:09 PM EST [facility] Soil Science Technical Officer ID Karla Hendrickson 06/28/2025 5:09 PM EST [facility] ACT Device ID [id number] 06/28/2025 5:09 PM EST [facility] Comment 06/28/2025 5:09 PM EST [facility] Comment: ACT performed by staff at [...] ST DOCKED DEVICE UNSOLICITED RESULTS Final Result [facility] [address] LAB [address] [place] [address] * (ABNORMAL) POCT arterial blood gas gem (06/25/2025 9:07 AM EDT) pH, Arterial 7.41 7.31 - 7.42 06/25/2025 9:08 AM EDT [facility] pCO2, Arterial 45 32 - 45 mm Hg 06/25/2025 9:08 AM EDT [facility] pO2, Arterial 286 >70 mm Hg 06/25/2025 9:08 AM EDT [facility] SO2, Arterial 100(H) 94 - 98 % 06/25/2025 9:08 AM EDT [facility] Base Excess, Arterial 3.4(H) -2 - 3 mmol/L 06/25/2025 9:08 AM EDT [facility] HCO3, Arterial 28.5(H) 22 - 26 mmol/L 06/25/2025 9:08 AM EDT [facility] Total Hemoglobin, Arterial, Whole Blood 9.2(L) 13.7 - 17.5 g/dL 06/25/2025 9:08 AM EDT [facility] Hematocrit, Arterial 28.0(L) 40 - 51.0 % 06/25/2025 9:08 AM EDT [facility] Sodium, Arterial 139 136 - 145 mmol/L 06/25/2025 9:08 AM EDT [facility] Potassium, Arterial 3.5(L) 3.6 - 4.9 mmol/L 06/25/2025 9:08 AM EDT [facility] Chloride, Whole Blood 103 97 - 107 mmol/L 06/25/2025 9:08 AM EDT [facility] Glucose, Arterial 125(H) 74 - 99 mg/dL 06/25/2025 9:08 AM EDT [facility] Ionized Calcium, Arterial 4.1(L) 4.6 - 5.1 mg/dL 06/25/2025 9:08 AM EDT [facility] Lactate, Arterial 0.6 0.5 - 1.6 mmol/L 06/25/2025 9:08 AM EDT [facility] Body Temperature 37.0 Celsius 06/25/2025 9:08 AM EDT [facility] pH, Temp Corrected, Arterial 7.41 7.31 - 7.42 06/25/2025 9:08 AM EDT [facility] pCO2, Temp Corrected, Arterial 45 32 - 45 mm Hg 06/25/2025 9:08 AM EDT [facility] pO2, Temp Corrected, Arterial 286 >70 mm Hg 06/25/2025 9:08 AM EDT [facility] Soil Science Technical Officer ID Karla Hendrickson 06/25/2025 9:08 AM EDT [facility] Blood Whole blood specimen / Unknown 06/25/2025 9:07 AM EDT 06/25/2025 9:08 AM EDT us Khushbu Gordon MD LAB POINT OF CARE TE ST DOCKED DEVICE UNSOLICITED RESULTS Final Result Performing Organization Address City/State/[facility] Co de Phone Number [facility] [address] [place] [address] * POCT ACT (06/25/2025 9:02 AM EDT) [facility] Signature ACT+ (HIGH RANGE) 544 68 - 600 Seconds 06/28/2025 5:09 PM EST [facility] Soil Science Technical Officer ID Karla Hendrickson 06/28/2025 5:09 PM EST [facility] ACT Device ID [id number] 06/28/2025 5:09 PM EST [facility] Comment 06/28/2025 5:09 PM EST [facility] Comment: ACT performed by staff at [...] 9:02 AM EDT 06/28/2025 5:09 PM EST Khushbu Gordon MD LAB POINT OF CARE TE ST DOCKED DEVICE UNSOLICITED RESULTS Final Result [facility] [address] [place] [address] * (ABNORMAL) POCT arterial blood gas gem (06/25/2025 8:47 AM EDT) pH, Arterial 7.35 7.31 - 7.42 06/25/2025 8:49 AM EDT [facility] pCO2, Arterial 51(H) 32 - 45 mm Hg 06/25/2025 8:49 AM EDT [facility] pO2, Arterial 114 >70 mm Hg 06/25/2025 8:49 AM EDT [facility] SO2, Arterial 100(H) 94 - 98 % 06/25/2025 8:49 AM EDT [facility] Base Excess, Arterial 1.9 -2 - 3 mmol/L 06/25/2025 8:49 AM EDT [facility] HCO3, Arterial 28.2(H) 22 - 26 mmol/L 06/25/2025 8:49 AM EDT [facility] Total Hemoglobin, Arterial, Whole Blood 11.3(L) 13.7 - 17.5 g/dL 06/25/2025 8:49 AM EDT [facility] Hematocrit, Arterial 34.0(L) 40 - 51.0 % 06/25/2025 8:49 AM EDT [facility] Sodium, Arterial 139 136 - 145 mmol/L 06/25/2025 8:49 AM EDT [facility] Potassium, Arterial 3.6 3.6 - 4.9 mmol/L 06/25/2025 8:49 AM EDT [facility] Chloride, Whole Blood 106 97 - 107 mmol/L 06/25/2025 8:49 AM EDT [facility] Glucose, Arterial 117(H) 74 - 99 mg/dL 06/25/2025 8:49 AM EDT [facility] Ionized Calcium, Arterial 4.6 4.6 - 5.1 mg/dL 06/25/2025 8:49 AM EDT [facility] Lactate, Arterial 0.5 0.5 - 1.6 mmol/L 06/25/2025 8:49 AM EDT [facility] Body Temperature 37.0 Celsius 06/25/2025 8:49 AM EDT [facility] pH, Temp Corrected, Arterial 7.35 7.31 - 7.42 06/25/2025 8:49 AM EDT [facility] pCO2, Temp Corrected, Arterial 51(H) 32 - 45 mm Hg 06/25/2025 8:49 AM EDT [facility] pO2, Temp Corrected, Arterial 114 >70 mm Hg 06/25/2025 8:49 AM EDT [facility] Soil Science Technical Officer ID Karla Hendrickson 06/25/2025 8:49 AM EDT [facility] Blood Whole blood specimen / Unknown 06/25/2025 8:47 AM EDT 06/25/2025 8:49 AM EDT us Khushbu Gordon MD LAB POINT OF CARE TE ST DOCKED DEVICE UNSOLICITED RESULTS Final Result Performing Organization Address City/State/[facility] Co de Phone Number [facility] [address] [place] [address] * POCT ACT (06/25/2025 8:41 AM EDT) ACT+ (HIGH RANGE) 578 68 - 600 Seconds 06/28/2025 5:10 PM EST [facility] Soil Science Technical Officer ID Karla Hendrickson 06/28/2025 5:10 PM EST [facility] ACT Device ID [id number] 06/28/2025 5:10 PM EST [facility] Comment 06/28/2025 5:10 PM EST [facility] Comment: ACT performed by staff at [...] ST DOCKED DEVICE UNSOLICITED RESULTS Final Result [facility] [address] LAB [address] [place] [address] * (ABNORMAL) POCT arterial blood gas gem (06/25/2025 7:53 AM EDT) pH, Arterial 7.42 7.31 - 7.42 06/25/2025 7:56 AM EDT [facility] pCO2, Arterial 44 32 - 45 mm Hg 06/25/2025 7:56 AM EDT [facility] pO2, Arterial 252 >70 mm Hg 06/25/2025 7:56 AM EDT [facility] SO2, Arterial 99(H) 94 - 98 % 06/25/2025 7:56 AM EDT [facility] Base Excess, Arterial 3.5(H) -2 - 3 mmol/L 06/25/2025 7:56 AM EDT [facility] HCO3, Arterial 28.5(H) 22 - 26 mmol/L 06/25/2025 7:56 AM EDT [facility] Total Hemoglobin, Arterial, Whole Blood 11.6(L) 13.7 - 17.5 g/dL 06/25/2025 7:56 AM EDT [facility] Hematocrit, Arterial 35.0(L) 40 - 51.0 % 06/25/2025 7:56 AM EDT [facility] Sodium, Arterial 138 136 - 145 mmol/L 06/25/2025 7:56 AM EDT [facility] Potassium, Arterial 3.6 3.6 - 4.9 mmol/L 06/25/2025 7:56 AM EDT [facility] Chloride, Whole Blood 106 97 - 107 mmol/L 06/25/2025 7:56 AM EDT [facility] Glucose, Arterial 107(H) 74 - 99 mg/dL 06/25/2025 7:56 AM EDT [facility] Ionized Calcium, Arterial 4.6 4.6 - 5.1 mg/dL 06/25/2025 7:56 AM EDT [facility] Lactate, Arterial 0.6 0.5 - 1.6 mmol/L 06/25/2025 7:56 AM EDT [facility] Body Temperature 37.0 Celsius 06/25/2025 7:56 AM EDT [facility] pH, Temp Corrected, Arterial 7.42 7.31 - 7.42 06/25/2025 7:56 AM EDT [facility] pCO2, Temp Corrected, Arterial 44 32 - 45 mm Hg 06/25/2025 7:56 AM EDT [facility] pO2, Temp Corrected, Arterial 252 >70 mm Hg 06/25/2025 7:56 AM EDT [facility] Soil Science Technical Officer ID Orlando Harirs 06/25/2025 7:56 AM EDT [facility] Blood Whole blood specimen / Unknown 06/25/2025 7:53 AM EDT 06/25/2025 7:56 AM EDT us Khushbu Gordon MD LAB POINT OF CARE TE ST DOCKED DEVICE UNSOLICITED RESULTS Final Result [facility] [address] [place] [address] * POCT ACT (06/25/2025 7:47 AM EDT) ACT+ (HIGH RANGE) 87 68 - 600 Seconds 06/28/2025 5:10 PM EST [facility] Soil Science Technical Officer ID James Merlos 06/28/2025 5:10 PM EST [facility] ACT Device ID [id number] 06/28/2025 5:10 PM EST [facility] Comment 06/28/2025 5:10 PM EST [facility] Comment: ACT performed by staff at [...] 7:47 AM EDT 06/28/2025 5:10 PM EST us Khushbu Gordon MD LAB POINT OF CARE TE ST DOCKED DEVICE UNSOLICITED RESULTS Final Result Performing Organization Address City/[facility] Co de Phone Number [facility] [address] [place], [place] [id number] [place] [address] LAB [address] [place] [address] * (ABNORMAL) POCT glucose meter (06/25/2025 6:37 AM EDT) POCT Glucose 102(H) 74 - 99 mg/dL 06/25/2025 6:38 AM EDT [facility] Comment:Accuracy of a glucos [...] for testing. Comment 06/25/2025 6:38 AM EDT [facility] Soil Science Technical Officer ID Kenzie Iqbal 06/25/2025 6:38 AM EDT [facility] LAB Device ID [id number] 06/25/2025 6:38 AM EDT [facility] Specimen Type POC Venous 06/25/2025 6:38 AM EDT [facility] Blood Venous blood specimen / Unknown 06/25/2025 6:37 AM EDT 06/25/2025 6:38 AM EDT Khushbu Gordon MD LAB POINT OF CARE TE ST DOCKED DEVICE UNSOLICITED RESULTS Final Result Performing Organization Address City/[facility] Co de Phone Number [facility] [address] [place] [address] * Type and Screen (06/25/2025 6:36 AM [...] LAB BLOOD BANK TEST ORDERABLES Final Result [place] [address], documented in this encounter Visit Diagnoses Diagnosis Mitral valve insufficiency, unspecified etiology Mitral valve disease Other and unspecified mitral valve diseases S/P MVR (mitral valve repair) Mitral valve insufficiency, unspecified etiology Mitral valve disease Other and unspecified mitral valve diseases Mitral valve insufficiency, unspecified etiology documented in this encounter Admitting Diagnoses Diagnosis [...] 06/28/2025 6:05 PM EST 1,000 mg amiodarone (Pacerone) tablet 200 mg 200 mg, [...] Given 06/29/2025 9:14 AM EST 5 mg atorvastatin (Lipitor) tablet 80 mg 80 [...] at 1334, Routine, Recovery(Phase II-Outpatient)/On Unit(Inpatient), constipation clopidogrel (Plavix) tablet 75 mg 75 mg, [...] 9:04 AM EST 100 mg furosemide (Lasix) tablet 40 mg 40 mg, Oral, Daily, First dose on Sat06/28/25 at 1215, Until Discontinued, Routine, Recovery(Phase II-Outpatient)/On Unit(Inpatient) Given 06/29/2025 9:14 AM EST 40 mg Given 06/28/2025 11:34 AM EST 40 mg lidocaine (Lidoderm) 5 % patch 1 [...] at 1334, Routine, Recovery(Phase II-Outpatient)/On Unit(Inpatient), constipation methocarbamol (Robaxin) tablet 750 mg 750 mg, Oral, 4 times daily, First dose (after last modification) on 06/28/25 at 1400, Until Discontinued, Routine, Recovery(Phase II-Outpatient)/On Unit(Inpatient) Given 06/29/2025 9:14 AM EST 750 mg Given 06/28/2025 9:06 PM EST 750 mg Given 06/28/2025 6:05 PM EST 750 mg metoprolol tartrate (Lopressor) tablet 25 mg 25 mg, Oral, 2 times daily, First dose (after last modification) on Sat06/27/25 at 2100, Until Discontinued, Routine Given 06/29/2025 [...] Given 06/28/2025 9:04 AM EST 1 Application ondansetron (Zofran) injection 4 mg 4 mg, Intravenous, Every 6 hours PRN, Starting on Sat06/25/25 at 1259, Until Sat06/29/25 at 1334, Routine, Recovery(Phase II-Outpatient)/On Unit(Inpatient), nausea, vomiting oxyCODONE (Roxicodone) immediate release tablet 10 mg 10 mg, Oral, Every 6 hours PRN, Starting on Sat06/25/25 at 1259, Until Sat06/29/25 at 1334, Routine, Recovery(Phase II-Outpatient)/On Unit(Inpatient), severe pain Given 06/28/2025 9: 06 PM EST 10 mg Given 06/28/2025 9:04 [...] Given 06/27/2025 8:00 AM EST 40 mg polyethylene glycol (Miralax) packet 17 g 17 g, Oral, 2 times daily, First dose (after last modification) on 06/26/25 at 2100, Until Discontinued, Routine, Recovery(Phase II-Outpatient)/On Unit(Inpatient) Given 06/28/2025 9:04 AM EST 17 g Given 06/27/2025 9:38 PM EST 17 g Given 06/27/2025 8:00 AM EST 17 g senna (Senokot) tablet 17.2 mg 17.2 mg, [...] and if any blood seen in tubing. documented in this encounter Active and Recently [...] Amin RN) 0031 (Given - Provider: Sim Farrell, KIRILL)0613 (Given - Provider: Sim Farrell RN)1200 (Canceled [...] RN) 09 (Given - Provider: Sophie Amin RN)2106 (Given - Provider: Sim Farrell, KIRILL) 0914 (Given - Provider: Sophie Amin RN) apixaban (Eliquis) tablet 5 mg 5 mg, Oral, 2 times daily, First dose on Sat06/29/25 at 0915, Until Discontinued, Routine 0914 (Given - Provid er: Sophie Amin RN) aspirin chewable tablet 81 mg (CANCELED) 81 mg, Oral, Daily, First dose on Sat06/26/25 at 0900, Until Discontinued, Recovery(Phase II-Outpatient)/On Unit(Inpatient) 0800 (Given - Provider: Betito Gold, KIRILL) 0904 (Given - Provider: Sophie Amin RN) atorvastatin (Lipitor) tablet 80 mg 80 mg, Oral, Nightly, First dose (after last modification) on 06/26/25 at 2100, Until Discontinued, Recovery(Phase II-Outpatient)/On Unit(Inpatient) 2137 (Given - Provider: oJhn Madrid RN) 2105 (Given - Provider: Sim Farrell, KIRILL) calcium chloride 10 % injection 1 g (COMPLETED) 1 g, Intravenous, Once, 1 dose, On 06/27/25 at 0530, STAT 0448 (Given - Provider: Jed Contreras, KIRILL) calcium gluconate 1 g in sodium chloride 0.9% 100 mL IVPB (vial adapter required) (COMPLETED) 1 g, Intravenous, Once, 1 dose, On 06/27/25 at 0145, at 240 mL/hr, Administer over [...] RN)2137 (Given - Provider: John Madrid, KIRILL) 09 (Given - Provider: Sophie Amin, KIRILL)2105 (Given - Provider: Sim Farrell, RN) 0914 (Given - Provider: Sophie Amin [...] Jed Contreras RN)1320 (Given - Provider: Betito Gold, KIRILL)2138 (Given - Provider: John Madrid, KIRILL) 0618 (Given - Provider: John Madrid RN)1531 (Given - Provider: Sophie Amin RN)210 (Given - Provider: Sim Farrell, RN) 0613 (Given - Provider: Sim Farrell, RN) magnesium sulfate IVPB 2 g (COMPLETED) 2 [...] Madrid RN) 0904 (Given - Provider: Sophie Amin, KIRILL) methocarbamol (Robaxin) tablet 750 mg 750 mg, Oral, 4 times daily, First dose (after last modification) on 06/28/25 at 1400, Until Discontinued, Routine, Recovery(Phase II-Outpatient)/On Unit(Inpatient) 1531 (Given - Provider: Sophie Amin, KIRILL)1805 (Given - Provider: Sophie Amin RN)2106 (Given [...] on 06/27/25 at 2100, Until Discontinued, Routine 213 (Given - Provider: John Madrid RN) 09 (Given - Provider: Sophie Amin RN)2105 (Given - Provider: Sim Farrell, KIRILL) 912 (Given - Provider: Sophie Amin RN) mupirocin (Bactroban) 2 % ointment 1 Application Each Nostril, 2 times daily, 10 doses, First dose on Sat06/25/25 at 1345, Last dose on Sat06/29/25 at 2100, Routine 0800 (Given - Provider: Betito Gold RN)2135 (Given - Provider: John Madrid RN) 903 (Given - Provider: Sophie Amin RN)2105 (Given - Provider: Sim Farrell, KIRILL) 0914 (Given - Provider: Sophie Amin RN) oxyCODONE (Roxicodone) immediate release tablet 10 mg (COMPLETED) 10 mg, Oral, Once, 1 dose, On 06/28/25 at 1215, Routine, Recovery(Phase II-Outpatient)/On Unit(Inpatient) 1135 (Given - Provider: Sophie Amin RN) pantoprazole (Protonix) EC tablet 40 mg 40 mg, Oral, Daily, First dose on 06/27/25 at 0900, Until Discontinued, Routine 0800 (Given - Provider: Betito Gold RN) 09 (Given - Provider: Sophie Amin RN) 09 (Given - Provider: Sophie Amin RN) polyethylene glycol (Miralax) packet 17 g 17 g, Oral, 2 times daily, First dose (after last modification) on 06/26/25 at 2100, Until Discontinued, Routine, Recovery(Phase II-Outpatient)/On Unit(Inpatient) 0800 (Given - Provider: Betito Gold RN)2137 (Given - Provider: John Madrid RN) 09 (Given - Provider: Sophie Amin RN)2105 (Not Given - Provider: Sim Farrell RN [...] daily, First dose (after last modification) on Sat06/26/25 at 2100, Until Discontinued, Routine, Recovery(Phase II-Outpatient)/On Unit(Inpatient) 0800 (Given - Provider: Betito Gold, KIRILL)2138 (Given - Provider: John Madrid RN) 0904 (Given - Provider: Sophie Amin RN)2107 (Not Given - Provider: Sim Farrell RN - Reason: Patient/family refused) 0914 (Not Given - Provider: Sophie Amin RN - Reason: Patient/family refused) sodium chloride 0.9 % flush 10 mL 10 mL, Intravenous, Every 12 hours, First dose on Sat06/25/25 at 1400, Until Discontinued, Routine 0210 (Given - Provider: Jed Contreras RN)1320 (Given - Provider: Betito Gold RN) 0220 (Canceled Entry - Provider: John Madrid RN)1521 (Given - Provider: Sophie Amin RN) 0111 (Given - Provider: Sim Farrell, KIRILL) Sodium Phosphate-NaCl IVPB 15 mmol (COMPLETED) 15 [...] Betito Gold, KIRILL)1631 (Given - Provider: Betito Gold RN) lidocaine (Lidoderm) 5 % patch 1 patch [...] RN)2137 (Given - Provider: John Madrid RN) 0904 (Given - Provider: Sophie Amin RN)1134 (Canceled Entry - Provider: Sophie Amin RN)210 (Given - Provider: Sim Farrell, RN) 0913 (See Alternative - Provider: Sophie [...] NIPS 0010 (See Alternative - Provider: Jed Contreras RN)0606 (See Alternative - Provider: Jed Contreras RN)1320 (See Alternative - Provider: Betito Gold RN)2137 (See Alternative - Provider: John Madrid RN) 0904 (See Alternative - Provider: Sophie Amin RN)1134 (See Alternative - Provider: Sophie Amin RN)210 (See Alternative - Provider: Sim Farrell, KIRILL) [...] documented as of this encounter 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
--- OUTSIDE RECORDS SUMMARY | 2025-06-25 06:11 | XMS_ITS | Encounter Summary ---
Author Organization Healthcare Address [address] [id number] Care Team Providers Care Watch Manufacturing Supervisor Name Role Phone Stefan Préez MD Primary Care Provider [phone] Joanne Bolaños MD Unavailable [phone] Reason for Visit * Auth/Cert (Routine) Specialty Diagnoses / Procedures Referred By Contac t Referred To Contact Diagnoses Mitral valve insufficiency, unspecified etiology Mitral valve insufficiency, unspecified etiology [I34.0] Procedures AL REPLACEMENT OF MITRAL VALVE REPAIR OR REPLACEMENT, MITRAL VALVE VIA THORACOTOMY Khushbu Gordon MD [address] [facility] [address] [place] [address] Phone: tel: fax: [facility] [address] [place] [address] Phone: tel: Referral ID Status Reason Start Date Expiration Date Visits Re quested Visits Authorized [id number] 1 1 Encounter Details Date Type Department Care Team (Late st Contact Info) Description 06/25/2025 7:11 AM EDT Anesthesia Event [facility] [address] [place] [id number] Elder Huffman MD [address] [place] [address] Cruz Kramer DO [address] [id number] Anesthesia Record Procedure Summary Procedure Name Responsible Anesthesiologist Anesthesia Start Time Anesthesia Stop Time REPAIR OR REPLACEMENT, MITRAL VALVE VIA THORACOTOMY (Right) Elder Huffman MD 06/25/25 0711 06/25/25 1300 Events Date Time Event Comment 06/25/2025 0649 0704 In Room 0704 Perfusion Start 0711 An Start The patient was reevaluated immediately before sedation and remains eligible for anesthesia plan. 0711 An Start Data 0718 Line Placement 0723 An Induction The patient was reevaluated immediately before moderate or deep sedation use and before anesthesia induction. 0725 An Intubation 0735 Line Placement 0739 Dashawn Baseline ACT: 8 7 0740 Anesthesia Ready 0815 Autotransfusion Start 0823 Proc Start 0845 ACT Performed 578s 0845 Labs 0854 Art Line Pulse/Test 0856 An CV Bypass init 0904 Labs 0904 ACT Performed 544s 0920 AN Active Cool 0921 Clamp On 0925 CO2 Field Flooding Start 5 L /min 0930 Labs 0930 ACT Performed 575s 1000 Labs 1000 ACT Performed 776s 1028 Dashawn 1030 Labs 1030 ACT Performed 783s 1036 AN Active Warm 1036 Active Cooling Stop 1056 CO2 Field Flooding Stop 1100 ACT Performed 521s 1101 Labs 1109 Clamp Off 1131 An CV Bypass Ended 1133 an kori now 1150 Dashawn Quantra done pe r surgeon request (normal). New onset Afib noted, HD stable, surgeon aware. 1223 Proc Fin 1230 Autotransfusion Stop 1230 Perfusion Stop 1242 an stop data 1245 Out of Room 1300 Handoff to Receiving I compl eted my handoff to the receiving clinician during which we: 1. Identified the patient 2. Identified the responsible provider 3. Reviewed the pertinent medical history 4. Discussed the surgical course 5. Reviewed intra-op anesthesia management and issues during anesthesia 6. Set expectations for post-procedure period 7. Allowed opportunity for questions and acknowledgement of understanding. 1300 An Stop Meds Name Total heparin injection 1,000 units/mL 36,000 Units heparin (porcine) injection 1,000 units/ mL 30,000 Units lidocaine PF (Xylocaine-MPF) 2% 80 mg Prime for CPB (OSM) 1,000 mL magnesium sulfate 4 g in sodium chloride 0.9 % 100 mL IVPB 4 g rocuronium (ZeMuron) injection 10 mg/mL 120 mg propofol (Diprivan) injection 10 mg/mL 1 50 mg fentaNYL (Sublimaze) injection 50 mcg/mL 1,000 mcg midazolam (Versed) injection 1 mg/mL 2 m g protamine injection 250 mg nitroglycerin (Tridil) infusion 100 mcg/ mL 1.55 mg tranexamic acid (Cyklokapron ) 1 mg in sodium chloride 0.9 % 100 mL (0.01 mg/mL) IVPB 937.65 mg tranexamic acid (Cyklokapron) injection 100 mg/mL 2,000 mg phenylephrine (Vazculep) injection 10 mg /mL 400 mcg cardioplegia ([place]) solution 1,200 m L propofol (Diprivan) infusion 10 mg/mL 76 .8 mg vancomycin 1000 mg in 200 mL D5W (premix ) 1.25 g norepinephrine (Levophed) injection 1 mg /mL 0.02 mg EPINEPHrine in 0.9% NaCl infusion 32 mcg /mL 0.18 mg clevidipine (Cleviprex) infusion 0.5 mg/ mL 1.03 mg lactated Ringer's infusion 200 mL sodium chloride 0.9 % infusion 0 mL sodium chloride 0.9 % infusion 0 mL * Agents Name Isoflurane Inspired Isoflurane * Blood No blood administrations on file. Lines, Drains, and Airways Type Details Placement Removal Wound 06/25/25; 0858; Surg ical; Chest; Lower, Right 06/25/25 0858 by Sreekanth Reyes RN Peripheral IV Placement Date: 05/28 09/19; Placement Time: 06; Catheter Size: 16 G; Orientation: Left, Posterior; Location: Hand; Site Prep: Chlorhexidine ; Local Anesth: [place]; Technique: Anatomical landmarks; Inserted by: Rosemary Iqbal; Insertion Attempts: 1; Patient Tolerance: Tolerated well; Removal Date: 06/29/25; Removal Time: 1129; Removal Reason: Per protocol 06/25/25 0630 by Rolanda Aaron RN 06/29/25 1129 by Sophie Amin RN Arterial Line Placement Date: 05/28 09/19; Placement Time: 0718 (created via procedure documentation); Size: 20 G; Orientation: Left; Location: Radial; Inserted by: Resident; Securement: Sutured; Patient Tolerance: Tolerated well; Removal Date: 06/26/25; Removal Time: 1224 06/25/25 0718 by Orlando Harris DO 06/26/25 1224 by Betito Gold, KIRILL ETT Placement Date: 05/28 09/19; Placement Time: 0725 (created via procedure documentation); Mask Ventilation: 2; Technique: Direct laryngoscopy; Type: ETT - single; Single Lumen Tube Size: 8 mm; Cuffed: Yes; Laryngoscope: Ember; Blade Size: 4; Location: Oral; Grade View: Grade I; Insertion Attempts: 1; Placement Verification: Auscultation, Capnometry; Airway Comments: Atraumatic. No change to dentition. ; Placed by: Resident ; Removal Date: 06/26/25; Removal Time: 0200 06/25/25 0725 by Orlando Harris, DO 06/26/25 0200 by Patricia Velasquez Urethral Catheter Placement Date: 05/28 09/19; Placement Time: 0730; Inserted by: Sreekanth Reyes RN; Type: Single lumen, Temperature probe, Non-latex; Size: 16 Fr.; Balloon Size: 10 mL; Urine Returned: Yes; Removal Date: 06/27/25; Removal Time: 1100 06/25/25 0730 by Sreekanth Reyes RN 06/27/25 1100 by Betito Gold RN CVC Triple Lumen Placement Date: 05/28 09/19; Placement Time: 0735 (created via procedure documentation); Hand Hygiene: Yes; Site Prep: Chlorhexidine ; Site Prep Agent Dried: Yes; Sterile Barrier Used: Yes; Size: 9 Fr; Line Length(cm): 20; Orientation: Right; Location: Internal jugular; Placement Verification: Blood return, Ultrasound; Removal Date: 06/27/25; Removal Time: 1555 06/25/25 0735 by Orlando Harris, DO 06/27/25 1555 by Betito Gold, RN Introducer Placement Date: 05/28 09/19; Placement Time: 0735 (created via procedure documentation); Hand Hygiene: Yes; Location: Internal jugular; Orientation: Right; Placement Verified by: Pressure tracing changes, VINOD; Removal Date: 06/26/25; Removal Time: 1158 06/25/25 0735 by Orlando Harris, DO 06/26/25 1158 by Betito Gold, RN Chest Tube Placement Date: 05/28 09/19; Placement Time: 1125; Inserted by: ayesha; Tube Number: 1; Orientation: Right; Location: Midaxillary; Size: 24 Fr (24 liseth drain); Drainage System: Concrete/nonsuction water seal drainage; Removal Date: 06/27/25 06/25/25 1125 by Sreekanth Reyes RN 06/27/25 0000 by Betito Gold RN Chest Tube Placement Date: 05/28 09/19; Placement Time: 1128; Inserted by: redrosemary; Tube Number: 2; Orientation: Right; Location: Pleural; Size: 28 Fr; Drainage System: Concrete/nonsuction water seal drainage; Removal Date: 06/27/25 06/25/25 1128 by Sreekanth Reyes RN 06/27/25 0000 by Betito Gold RN NG/OG Tube Placement Date: 05/28 09/19; Placement Time: 1300; Type: Orogastric; Location: Center mouth; Removal Date: 06/26/25; Removal Time: 0200 06/25/25 1300 by Betito Gold RN 06/26/25 0200 by John Amaya RN documented in this encounter Social History Tobacco [...] as of this encounter Miscellaneous Notes * Anesthesia Postprocedure Evaluation - Orlando Harris, - 06/25/2025 2:15 PM EDT Patient: Jake Pacheco Anesthesia Type: general Vitals Value Taken Time BP 36.4 06/25/25 14:15 Temp 35.5 ??C (95.9 ??F) 06/25/25 14:00 Pulse 78 06/25/25 14:14 Resp 23 06/25/25 14:14 SpO2 100 % 06/25/25 14:14 Vitals shown include unfiled device data. Anesthesia Post Evaluation Patient location during evaluation: ICU Patient participation: complete - patient cannot participate Level of consciousness: sedated Pain management: adequate (pain score 0-3) Airway patency: endotracheal device Cardiovascular status: acceptable and hemodynamically stable Respiratory status: acceptable, ETT and ventilator Hydration status: acceptable Nausea/Vomiting: No Comments: Patient transported to ICU on monitors with vasoactive medications available. HDS en route. Handoff given to ICU team. No notable events documented. Cosigned by Elder Huffman MD at 06/25/2025 3:39 PM EDT Associated attestation - Elder Huffman MD - 06/25/2025 3:39 PM EDT I agree with the findings and care plan documented in the postprocedure evaluation note. * Anesthesia Procedure Notes - Elder Huffman MD - 06/25/2025 9:38 AM EDT Associated Order(s): VINOD Procedure Performed: VINOD General Procedure Information Diagnostic Indications for VINOD: assessment of surgical repair Physician Requesting Echo: Khushbu Gordon MD Location performed: OR Intubated Bite block placed Heart visualized Probe Insertion: Easy Probe Type: Multiplane Preanesthesia Checklist: Patient identified, IV checked, site marked, risks and benefits discussed, surgical consent, monitors and equipment checked, pre-op evaluation and timeout performed. Postprocedure Status: Information obtained during VINOD exam relayed to the referring surgeon/physician. Anesthesia Information Performed Anesthesiologist Anesthesiologist: Elder Huffman MD Echocardiogram Comments: Pre-cpb exam: Left ventricle - appears normal in size with normal systolic function in the setting of mitral regurgitation. EF estimated to be 50-55%, no RWMA noted. Right ventricle - normal in size and systolic function on gross exam. TAPSE >1.6 cm, FAC >35% Mitral valve - There is mild mitral annular calcification. Leaflets appear thickened with myxomatous changes and prolapse predominantly involving P2 segment noted. There is severe mitral regurgitation with a n anteriorly directed jet. The leaflets appear to open normally and no e/o stenosis Aortic valve - Mild sclerosis, trileaflet, appears to open normally with no evidence of stenosis orregurgitation Tricuspid valve - mild prolapse of tricuspid valve leaflets with mild regurgitation in presence of hardware (pulmonary artery catheter) noted. Pulmonic - normal on gross exam with mild regurgitation Left atrium appears dilated, right atrial size normal with intact inter-atrial septum on color doppler exam, no JR thrombus Ascending aorta appears mildly sclerotic with normal dimensions Descending aorta appears mildly atherosclerotic with no e/o dissection Pericardium - no effusion Pleura - no effusion Post-cpb exam Mitral valve - appears repaired with an annuloplasty ring. The leaflets appears to co-apt well (coaptation length of ~0.7 cm). There is trace central regurgitation, Pmean 2 mm Hg noted post-repair. Rest of valve - similar to baseline LV systolic function appears normal with EF estimated to be ~55% on low dose epinephrine, no new RWMA noted Right ventricle similar function to baseline Pericardium - no effusion Descending thoracic aorta - no e/o dissection at end of case * Anesthesia Procedure Notes - Orlando Harris DO - 06/25/2025 9:06 AM EDT Associated Order(s): Central Venous Line Central Venous Line: Date/Time: 06/25/2025 7:35 AM A central venous line was placed in the OR for the following indication(s): central venous access and CVP monitoring. Sterility preparation included the following: provider hand hygiene performed prior to central venous catheter insertion, all 5 sterile barriers used (gloves, gown, cap, mask, large sterile drape) during central venous catheter insertion, antiseptic used during central venous catheter insertion andskin prep agent completely dried prior to procedure. The patient was placed in Trendelenburg position. Right internal jugular vein was prepped. The site was prepped with Chlorhexidine. A 9 Fr (size), 20 (length), introducer triple lumen was placed. This catheter was an oximetric catheter. During the procedure, the following specific steps were taken: target vein identified, needle advanced into vein and blood aspirated and guidewire advanced into vein. Seldinger technique used Procedure performed using ultrasound guidance Sterile gel and probe cover used in ultrasound-guided central venous catheter insertion. Intravenous verification was obtained by ultrasound, venous blood return, transducer and manometry. Post insertion care included: all ports aspirated, all ports flushed easily, guidewire removed intact, Biopatch applied, line sutured in place and dressing applied. During the procedure the patient experienced: patient tolerated procedure well with no complications. PA Catheter Placed A oximetric, 8 (size) Pulmonary Artery Catheter (PAC) was placed through the Introducer CVL in the right internal jugular vein. The PAC placement was confirmed by pressure tracing changes and VINOD and secured at 45 cm (depth). The patient experienced the following events during the procedure: patient tolerated procedure wellwith no complications. Staffing Performed: Resident Anesthesiologist: Elder Huffman MD Resident: Orlando Harris DO Cosigned by Elder Huffman MD at 06/25/2025 9:38 AM EDT Associated attestation - Elder Huffman MD - 06/25/2025 9:38 AM EDT I was present during all critical and petty portions of the procedure(s) and [facility]. See resident note for details. * Anesthesia Procedure Notes - Orlando Harris DO - 06/25/2025 9:06 AM EDT Associated Order(s): Arterial Line Arterial Line: Date/Time: 06/25/2025 7:18 AM An arterial line was placed. Procedure performed using ultrasound guidance in the OR for the following indication(s): continuousblood pressure monitoring and blood sampling needed. A 20 gauge (size), 1 and 3/4 inch (length), Arrow (type) catheter was placed into the Left radial artery and secured by suture. Seldinger technique used Events: patient tolerated procedure well with no complications. Staffing Performed: Resident Anesthesiologist: Elder Huffman MD Resident: Orlando Harris DO Cosigned by Elder Huffman MD at 06/25/2025 9:38 AM EDT Associated attestation - Elder Huffman MD - 06/25/2025 9:38 AM EDT I was present during all critical and petty portions of the procedure(s) and immediately available [facility] the entire duration. See resident note for details. * Anesthesia Procedure Notes - Orlando Harris DO - 06/25/2025 9:05 AM EDT Associated Order(s): Airway Airway Date/Time: 06/25/2025 7:25 AM Reason: elective Airway not difficult General Information and Staff Patient location during procedure: OR Anesthesiologist: Elder Huffman MD Resident: Orlando Harrsi DO Performed: Resident Patient Condition Indications for airway management: anesthesia Patient position: sniffing Final Airway Details Final airway type: endotracheal airway Successful airway: ETT Cuffed: yes Successful intubation technique: direct laryngoscopy Adjuncts used in placement: intubating stylet and cricoid pressure Endotracheal tube insertion site: oral Blade: Ember Blade size: #4 ETT size (mm): 8.0 Cormack-Lehane Classification: grade I - full view of glottis Placement verified by: chest auscultation and capnometry Measured from: lips ETT to lips (cm): 23 Additional Comments Atraumatic. No change to dentition. Cosigned by Elder Huffman MD at 06/25/2025 9:38 AM EDT Associated attestation - Elder Huffman MD - 06/25/2025 9:38 AM EDT I was present during all critical and petty portions of the procedure(s) and immediately available [facility] the entire duration. See resident note for details. * Anesthesia Preprocedure Evaluation - Elder Huffman MD - 06/24/2025 7:59 PM EDT Images from the original note were not included. HPI Jake Pacheco is a 75 y.o. male who presents with Pre-op Diagnosis * Mitral valve insufficiency, unspecified etiology [I34.0] now scheduled for REPAIR OR REPLACEMENT,MITRAL VALVE VIA THORACOTOMY (Right). 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 During his stroke workup, ECHO revealed a moderate-severe mitral regurgitation. He has been followed by the cardiothoracic clinic pertaining to surgery planning since this event. Rest of ECHO exam showed LVEF 60% and mild TR. Recent heart cath revealed nonobstructive CAD, recent PFT showed FEV1/FVCratio of 76, and carotid exam showed no stenosis bilaterally. Previous anesthetic record shows G1 view on DL. NKDA NPO since 2099 >4 METS Past Medical History[1] Family History[2] Social History[3] SURGICAL HISTORY: Surgical History[4] Allergies[5] MEDICATIONS: Current Medications[6] 06/18/2025 10:51 AM Vitals Weight (kg) 91.173 kg BMI 29.68 kg/m2 BSA (m2) 2.11 m2 06/2024 - CMR - 06/2024 - VINOD - Lab Results Component Value Date WBC 7.06 06/18/2025 HGB 12.7 (L) 06/18/2025 HCT 38.7 (L) 06/18/2025 MCV 89 06/18/2025 PLT 194 06/18/2025 Lab Results Component Value Date GLUCOSE 100 (H) 06/18/2025 CALCIUM 8.9 06/18/2025 NA 137 06/18/2025 K 4.1 06/18/2025 CO2 26 06/18/2025 CL 102 06/18/2025 BUN 13 06/18/2025 CREATININE 0.80 06/18/2025 04/12/25 - Carotids - Right: ICA velocities [...] able to open mouth wide, with pt.'s S.O. Allie, Via phone. Cardiovascular: Patient's ECG reviewed. CAD ([facility] with nonobstructive CAD.), CHF (was noted in chart, S.O. denies.),hyperlipidemia (not taking med for.), a murmur and valvular heart disease (Mitral valve insufficiency, Non-Rheumatic Mitral Valve regurgitation. severe symptomatic mitral regurgitation. severe symptomatic mitral regurgitation. severe symptomatic mitral regurgitation.). Does not have angina, atrial fibrillation, dyspnea, dysrhythmias, peripheral edema, peripheral edema, past UT or syncope. hypertension: is well controlled. Exercise [...] gout. Lab Results Component Value Date WBC 7.06 06/18/2025 HGB 12.7 (L) 06/18/2025 HCT 38.7 (L) 06/18/2025 MCV 89 06/18/2025 PLT 194 06/18/2025 Lab Results Component Value Date GLUCOSE 100 (H) 06/18/2025 BUN 13 06/18/2025 CREATININE 0.80 06/18/2025 BCR 16 06/18/2025 NA 137 06/18/2025 K 4.1 06/18/2025 CL 102 06/18/2025 CO2 26 06/18/2025 ALBUMIN 4.0 06/18/2025 ALKPHOS 57 06/18/2025 BILITOT 0.6 06/18/2025 Lab Results Component Value Date HGBA1C 5.5 06/18/2025 Lab Results Component Value Date INR 1.0 06/18/2025 Visit Vitals Smoking Status Former Physical Exam Airway Mallampati: II Mouth opening: normal TM distance: >3 FB Neck ROM: full Cardiovascular Rhythm: regular Rate: normal (+) murmur (-) peripheral edema Dental - normal exam Pulmonary Breath sounds clear to auscultation Neurological Oriented: normal to time, normal to place and normal to person and oriented to person, place and time Skin Musculoskeletal Extremities Anesthesia Plan ASA 4 Plan was reviewed with: resident Anesthesia technique(s) discussed with the patient/family: general and regional Anesthesia plan agreed upon was: general Anesthetic plan and risks discussed with patient. Use of blood products discussed with patient who consented to blood products. Orlando Harris DO [1] Past Medical History: Diagnosis Date Hypertension [...] HIP ARTHROPLASTY [5] No Known Allergies [6] No current facility-administered medications for this encounter. Current Outpatient Medications: acetaminophen, Take 2 tablets [...] by mouth 1 (one) time each day. mupirocin, Apply 1 Application topically 2 times a day. Apply to each nostril twice daily for 5 days before surgery. omeprazole, Take 1 capsule (20 mg total) by mouth 1 (one) time each day. Do not crush or chew. Takefor 4 weeks post-operatively. tiZANidine, 1 (one) time each day. traMADol, Take 1 tablet (50 mg total) by mouth every 4 (four) hours if needed for severe pain. documented in this encounter Plan of Treatment Upcoming Encounters Date Type Department Care Team (Late st Contact Info) Description 08/23/2025 9:30 AM EST Appointment Cardiac Imaging [address] [place] [address] 08/23/2025 12:00 PM EST Office Visit [facility] [address], [facility] [address] [place] [address] Khushbu Gordon MD [address] [facility] [address] [place] [address] 09/01/2025 2:30 PM EST Office Visit [facility] [place] [address], [address] [place] [address] Elsi Mas DO [address] [place] [address] documented as of this encounter Goals Goal Patient Goal Type Associated Problems Recent Progress Patient-Stated? Author Autogenera herman Goal Care Plan Autogenerated Problem No [place] Stinson PA documented as of this encounter Procedures Procedure Name Priority Date/Time Associated Diagnosis Comments PB ANESTHESIA NON-TIMED PROCEDURE PLACEHOLDER Routine 06/25/2025 9:38 AM EDT AL INSERT/PLACE FLOW DIRECT CATH Routine 06/25/2025 7:35 AM EDT ANESTHESIA ULTRASOUND GUIDED Routine 06/25/2025 7:35 AM EDT PB ANESTHESIA NON-TIMED PROCEDURE PLACEHOLDER Routine 06/25/2025 7:35 AM EDT AL AN CENTRAL LINE TRIPLE LUMEN Routine 06/25/2025 7:35 AM EDT PB ANESTHESIA PLACEHOLDER Routine 06/25/2025 7:25 AM EDT AL AN ELECTIVE ENDOTRACHEAL AIRWAY Routine 06/25/2025 7:25 AM EDT PB ANESTHESIA NON-TIMED PROCEDURE PLACEHOLDER Routine 06/25/2025 7:18 AM EDT documented in this encounter Results * PB ANESTHESIA NON-TIMED PROCEDURE PLACEHOLDER (06/25/2025 9:38 AM EDT) BSA 2.09 m2 CAR DO NOT SEND Anatomical Region Laterality Modality Other Narrative 06/25/2025 9:38 AM EDT Elder Huffman MD 06/25/2025 1:21 PM Procedure Performed: VINOD General Procedure Information Diagnostic Indications for VINOD: assessment of surgical repair Physician Requesting Echo: Khushbu Gordon MD Location performed: OR Intubated Bite block placed Heart visualized Probe Insertion: Easy Probe Type: Multiplane Preanesthesia Checklist: Patient identified, IV checked, site marked, risks and benefits discussed, surgical consent, monitors and equipment checked, pre-op evaluation and timeout performed. Postprocedure Status: Information obtained during VINOD exam relayed to the referring surgeon/physician. Anesthesia Information Performed Anesthesiologist Anesthesiologist: Elder Huffman MD Echocardiogram Comments: Pre-cpb exam: Left ventricle - appears normal in size with normal systolic function in the setting of mitral regurgitation. EF estimated to be 50-55%, no RWMA noted. Right ventricle - normal in size and systolic function on gross exam. TAPSE >1.6 cm, FAC >35% Mitral valve - There is mild mitral annular calcification. Leaflets appear thickened with myxomatous changes and prolapse predominantly involving P2 segment noted. There is severe mitral regurgitation with a n anteriorly directed jet. The leaflets appear to open normally and no e/o stenosis Aortic valve - Mild sclerosis, trileaflet, appears to open normally with no evidence of stenosis or regurgitation Tricuspid valve - mild prolapse of tricuspid valve leaflets with mild regurgitation in presence of hardware (pulmonary artery catheter) noted. Pulmonic - normal on gross exam with mild regurgitation Left atrium appears dilated, right atrial size normal with intact inter-atrial septum on color doppler exam, no JR thrombus Ascending aorta appears mildly sclerotic with normal dimensions Descending aorta appears mildly atherosclerotic with no e/o dissection Pericardium - no effusion Pleura - no effusion Post-cpb exam Mitral valve - appears repaired with an annuloplasty ring. The leaflets appears to co-apt well (coaptation length of ~0.7 cm). There is trace central regurgitation, Pmean 2 mm Hg noted post-repair. Rest of valve - similar to baseline LV systolic function appears normal with EF estimated to be ~55% on low dose epinephrine, no new RWMA noted Right ventricle similar function to baseline Pericardium - no effusion Descending thoracic aorta - no e/o dissection at end of case us Elder Huffman MD ANESTHESIA ORDERABLES Edited Res ult - Final * AL AN CENTRAL LINE TRIPLE LUMEN, PB ANESTHESIA NON-TIMED PROCEDURE PLACEHOLDER, ANESTHESIA ULTRASOUND GUIDED, AL INSERT/PLACE FLOW DIRECT CATH (06/25/2025 7:35 AM EDT) Narrative Elder Huffman MD - 06/25/2025 7:35 AM EDT Elder Huffman MD 06/25/2025 9:38 AM Central Venous Line: Date/Time: 06/25/2025 7:35 AM A central venous line was placed in the OR for the following indication(s): central venous access and CVP monitoring. Sterility preparation included the following: provider hand hygiene performed prior to central venous catheter insertion, all 5 sterile barriers used (gloves, gown, cap, mask, large sterile drape) during central venous catheter insertion, antiseptic used during central venous catheter insertion and skin prep agent completely dried prior to procedure. The patient was placed in Trendelenburg position. Right internal jugular vein was prepped. The site was prepped with Chlorhexidine. A 9 Fr (size), 20 (length), introducer triple lumen was placed. This catheter was an oximetric catheter. During the procedure, the following specific steps were taken: target vein identified, needle advanced into vein and blood aspirated and guidewire advanced into vein. Seldinger technique used Procedure performed using ultrasound guidance Sterile gel and probe cover used in ultrasound-guided central venous catheter insertion. Intravenous verification was obtained by ultrasound, venous blood return, transducer and manometry. Post insertion care included: all ports aspirated, all ports flushed easily, guidewire removed intact, Biopatch applied, line sutured in place and dressing applied. During the procedure the patient experienced: patient tolerated procedure well with no complications. PA Catheter Placed A oximetric, 8 (size) Pulmonary Artery Catheter (PAC) was placed through the Introducer CVL in the right internal jugular vein. The PAC placement was confirmed by pressure tracing changes and VINOD and secured at 45 cm (depth). The patient experienced the following events during the procedure: patient tolerated procedure well with no complications. Staffing Performed: Resident Anesthesiologist: Elder Huffman MD Resident: Orlando Harris DO Elder Huffman MD ANESTHESIA ORDERABLES Final Resu lt * AL AN ELECTIVE ENDOTRACHEAL AIRWAY, PB ANESTHESIA PLACEHOLDER (06/25/2025 7:25 AM EDT) Narrative Elder Huffman MD - 06/25/2025 7:25 AM EDT Elder Huffman MD 06/25/2025 9:38 AM Airway Date/Time: 06/25/2025 7:25 AM Reason: elective Airway not difficult General Information and Staff Patient location during procedure: OR Anesthesiologist: Elder Huffman MD Resident: Orlando Harris DO Performed: Resident Patient Condition Indications for airway management: anesthesia Patient position: sniffing Final Airway Details Final airway type: endotracheal airway Successful airway: ETT Cuffed: yes Successful intubation technique: direct laryngoscopy Adjuncts used in placement: intubating stylet and cricoid pressure Endotracheal tube insertion site: oral Blade: Ember Blade size: #4 ETT size (mm): 8.0 Cormack-Lehane Classification: grade I - full view of glottis Placement verified by: chest auscultation and capnometry Measured from: lips ETT to lips (cm): 23 Additional Comments Atraumatic. No change to dentition. Elder Huffman MD ANESTHESIA ORDERABLES Final Resu lt * PB ANESTHESIA NON-TIMED PROCEDURE PLACEHOLDER (06/25/2025 7:18 AM EDT) Narrative Elder Huffman MD - 06/25/2025 7:18 AM EDT Elder Huffman MD 06/25/2025 9:38 AM Arterial Line: Date/Time: 06/25/2025 7:18 AM An arterial line was placed. Procedure performed using ultrasound guidance in the OR for the following indication(s): continuous blood pressure monitoring and blood sampling needed. A 20 gauge (size), 1 and 3/4 inch (length), Arrow (type) catheter was placed into the Left radial artery and secured by suture. Seldinger technique used Events: patient tolerated procedure well with no complications. Staffing Performed: Resident Anesthesiologist: Elder Huffman MD Resident: Orlando Harris DO Elder Huffman MD ANESTHESIA ORDERABLES Final Resu lt documented in this encounter Visit Diagnoses Not on filedocumented in this encounter Administered Medications Inactive Administered Medications - up to 3 most recent administrations Medication Order MAR Action Action Date Dose Rate Site Cardioplegia del Nido Formula OR infusion Perfusion, As needed, Starting on Sat06/25/25 at 0922, Until Sat06/25/25 at 1415, Routine Given 06/25/2025 9:22 AM EDT 1,200 mL clevidipine (Cleviprex) 0.5 MG/ML infusion Intravenous, Continuous PRN, Starting on Sat06/25/25 at 1134, Until Sat06/25/25 at 1415, Routine, Anesthesia Intraprocedure Rate/Dose Change 06/25/2025 11:50 AM EDT 2 mg/hr 4 mL/hr Rate/Dose Change 06/25/2025 11:37 AM EDT 4 mg/hr 8 mL/h r New Bag 06/25/2025 11:34 AM EDT 2 mg/hr 4 mL/hr EPINEPHrine infusion 8 mg in NS 250 mL (0.032 mg/mL) (compounding pharmacy premix) Intravenous, Continuous PRN, Starting on Sat06/25/25 at 1119, Until Sat06/25/25 at 1415, Routine, Anesthesia Intraprocedure New Bag 06/25/2025 11:19 AM EDT 0.02 mcg/kg/min 3.349 mL/hr fentaNYL (Sublimaze) injection Intravenous, As needed, Starting on Sat06/25/25 at 0823, Until Sat06/25/25 at 1415, Routine, Anesthesia Intraprocedure Given 06/25/2025 12:40 PM EDT 200 mcg Given 06/25/2025 12:22 PM EDT 100 mcg Given 06/25/2025 12:11 PM EDT 100 mcg heparin (porcine) injection Intravenous, As needed, Starting on Sat06/25/25 at 0841, Until Sat06/25/25 at 1415, Routine, Anesthesia Intraprocedure Given 06/25/2025 8:41 AM EDT 36,000 Units heparin (porcine) injection Intravenous, As needed, Starting on Sat06/25/25 at 0913, Until Sat06/25/25 at 1415, Routine, Anesthesia Intraprocedure Given 06/25/2025 11:07 AM EDT 10,000 Units Given 06/25/2025 9:39 AM EDT 10,000 Units Given 06/25/2025 9:13 AM EDT 10,000 Units lactated Ringer's infusion Intravenous, Continuous PRN, Starting on Sat06/25/25 at 0711, Until Sat06/25/25 at 1415, Routine New Bag 06/25/2025 7:11 AM EDT lidocaine PF (Xylocaine) 2 % injection Intravenous, As needed, Starting on Sat06/25/25 at 0723, Until Sat06/25/25 at 1415, Routine, Anesthesia Intraprocedure Given 06/25/2025 7:23 AM EDT 80 mg magnesium sulfate 4 g in sodium chloride 0.9 % 100 mL IVPB Intravenous, Continuous PRN, Starting on Sat06/25/25 at 1110, Until Sat06/25/25 at 1415, Routine New Bag 06/25/2025 11:10 AM EDT 4 g midazolam (Versed) injection Intravenous, As needed, Starting on Sat06/25/25 at 0712, Until Sat06/25/25 at 1415, Routine, Anesthesia Intraprocedure Given 06/25/2025 12:59 PM EDT 1 mg Given 06/25/2025 7:12 AM EDT 1 mg nitroglycerin (Tridil) in D5W IV solution 100 mcg/mL Intravenous, Continuous PRN, Starting on Sat06/25/25 at 0824, Until Sat06/25/25 at 1415, Routine, Anesthesia Intraprocedure Rate/Dose Change 06/25/2025 8:42 AM EDT 0.1 mcg/kg/min 5.358 mL/hr Given 06/25/2025 8:38 AM EDT 50 mcg Rate/Dose Change 06/25/2025 8:37 AM EDT 0.08 mcg/kg/min 4. 286 mL/hr norepinephrine (Levophed) injection Intravenous, Continuous PRN, Starting on Sat06/25/25 at 1118, Until Sat06/25/25 at 1415, Routine, Anesthesia Intraprocedure Rate/Dose Change 06/25/2025 11:29 AM EDT 0.01 mcg/kg/min 0.054 mL/hr New Bag 06/25/2025 11:18 AM EDT 0.02 mcg/kg/min 0.107 m L/hr phenylephrine (Vazculep) injection Intravenous, As needed, Starting on Sat06/25/25 at 0921, Until Sat06/25/25 at 1415, Routine, Anesthesia Intraprocedure Given 06/25/2025 11:11 AM EDT 10 0 mcg Given 06/25/2025 11:10 AM EDT 100 mcg Given 06/25/2025 11:09 AM EDT 50 mcg Prime for CPB (OSM) Perfusion, Continuous PRN, Starting on Sat06/25/25 at 0856, Until Sat06/25/25 at 1415, Routine New Bag 06/25/2025 8:56 AM EDT 1,000 mL propofol (Diprivan) infusion 10 mg/mL Intravenous, Continuous PRN, Starting on Sat06/25/25 at 1217, Until Sat06/25/25 at 1415, Routine Rate/Dose Verify 06/25/2025 2:00 PM EDT 20 mcg/kg/min 10.72 mL/hr New Bag 06/25/2025 12:17 PM EDT 20 mcg/kg/min 10.716 mL /hr propofol (Diprivan) injection Intravenous, As needed, Starting on Sat06/25/25 at 0829, Until Sat06/25/25 at 1415, Routine, Anesthesia Intraprocedure Given 06/25/2025 8:29 AM EDT 20 mg Given 06/25/2025 7:56 AM EDT 30 mg Given 06/25/2025 7:24 AM EDT 100 mg protamine injection Intravenous, As needed, Starting on Sat06/25/25 at 1134, Until Sat06/25/25 at 1415, Routine, Anesthesia Intraprocedure Given 06/25/2025 11:34 AM EDT 25 0 mg rocuronium (ZeMuron) injection Intravenous, As needed, Starting on Sat06/25/25 at 0723, Until Sat06/25/25 at 1415, Routine, Anesthesia Intraprocedure Given 06/25/2025 8:13 AM EDT 20 mg Given 06/25/2025 7:23 AM EDT 100 mg sodium chloride 0.9 % infusion Intravenous, Continuous PRN, Starting on Sat06/25/25 at 0740, Until Sat06/25/25 at 1415, Routine New Bag 06/25/2025 7:40 AM EDT 50 mL/hr sodium chloride 0.9 % infusion Intravenous, Continuous PRN, Starting on Sat06/25/25 at 0711, Until Sat06/25/25 at 1415, Routine New Bag 06/25/2025 7:11 AM EDT tranexamic acid (Cyklokapron) 1 mg in sodium chloride 0.9 % 100 mL (0.01 mg/mL) IVPB Intravenous, Continuous PRN, Starting on Sat06/25/25 at 0745, Until Sat06/25/25 at 1415, Routine New Bag 06/25/2025 7:45 AM EDT 2 mg/kg/hr 48297 mL/hr tranexamic acid (Cyklokapron) injection Intravenous, As needed, Starting on Sat06/25/25 at 0745, Until Sat06/25/25 at 1415, Routine, Anesthesia Intraprocedure Given 06/25/2025 7:45 AM EDT 2,000 mg Vancomycin HCl in NaCl (Vancocin) IVPB Intravenous, As needed, Starting on Sat06/25/25 at 0711, Until Sat06/25/25 at 1415, Routine, Anesthesia Intraprocedure Given 06/25/2025 7:11 AM EDT 1.25 g documented in this encounter Additional Health Concerns [...] documented as of this encounter Care Teams Watch Manufacturing Supervisor Relationship Specialty Start Date End Date Stefan Pérez MD [address] [place] [address] [address] [place] [address] PCP - General 12/08/21 Joanne Bolaños MD [address] [place] [phone] Referring Physician Interventional Cardiology 05/25/25 documented as of this encounter
--- OUTSIDE RECORDS SUMMARY | 2025-07-19 10:46 | XMS_ITS | Encounter Summary ---
Author Organization Healthcare Address [address] [place] [address] Care Team Providers Care Coding Spec Name Role Phone Stefan Pérez MD Primary Care Provider [phone] Joanne Bolaños MD Unavailable [phone] Moi Joseph MD Unavailable [phone] Encounter Details Date Type Department Care Team (Latest Contact Info) Description 07/19/2025 10:46 AM EST - 07/19/2025 11:59 PM EST Hospital Encounter [facility] [address] [place] [address] Nonrheumatic aortic (valve) insufficiency Discharge Disposition: Home or Self [...] any time in the past 12 m [facility], were you homeless or living in a fpc (including now)? No 06/28/2025 [facility] Utilities Answer Date Recorded In the past 12 months has th e [employer], gas, oil, or water [employer] threatened to shut off services in your [...] Take 1 tablet by mouth every morning. furosemide (Lasix) 40 MG tablet Take 1 tablet by mouth daily. 7 tablet 07/19/2025 metoprolol tartrate (Lopressor) 25 MG tablet Take [...] 4 weeks post-operativel y. 30 capsule 12/09/2021 potassium chloride CR (Klor-Con) 10 MEQ ER tablet Take 1 tablet by mouth daily for 7 days. Do not crush, chew, or split. Take only when taking Lasix 7 tablet 07/19/2025 5 documented as of this encounter Plan of Treatment Upcoming Encounters Date Type Department Care Team (Late st Contact Info) Description 08/23/2025 9:30 AM EST Appointment Cardiac Imaging [address] [place] [address] 08/23/2025 12:00 PM EST Office Visit [facility] [address], [facility] [address] [place] [address] Khushbu Gordon MD [address] [place] [address] 09/01/2025 2:30 PM EST Office Visit [facility] [place] [facility] [address] [facility], [address] [place] [address] Chace Elsi Alba, DO [address] [place] [address] documented as of this encounter Goals Goal Patient Goal Type Associated Problems Recent Progress Patient-Stated? Author Autogenera herman Goal Care Plan Autogenerated Problem No [place] Stinson PA documented as of this encounter Procedures Procedure Name Priority Date/Time Associated Diagnosis Comments XR CHEST 2 VIEWS Routine 07/19/2025 10:5 5 AM EST Nonrheumatic aortic (valve) insufficiency documented in this encounter Results * XR Chest 2 Views (07/19/2025 10:55 AM EST) Anatomical Region Laterality Modality Chest Digital Radiogra phy Impressions 07/19/2025 1:56 PM EST Interval resolution of pneumothorax. Increased right basilar atelectasis. CRITICAL RESULT: No. COMMUNICATION: Per this written report. By electronically signing this report, I, the attending physician, attest that I have personally reviewed the images/data for the above examination(s) and agree with the final edited report. Drafted by Kiran Roche MD on 07/19/2025 11:32 AM Final report signed by Yonatan Hall MD on 07/19/2025 1:56 PM Narrative 07/19/2025 1:56 PM EST CLINICAL INDICATION: post op TECHNIQUE: PA and lateral views of chest. COMPARISON: Chest radiograph 06/29/2025. FINDINGS: Stable mediastinal contours and cardiac silhouette. Interval resolution of pneumothorax. Increased right basilar atelectasis. No airspace consolidation or pleural effusions. Degenerative changes of the thoracic spine. Procedure Note Yonatan Hall MD - 07/19/2025 CLINICAL INDICATION: post op TECHNIQUE: PA and lateral views of chest. COMPARISON: Chest radiograph 06/29/2025. FINDINGS: Stable mediastinal contours and cardiac silhouette. Interval resolution ofpneumothorax. Increased right basilar atelectasis. No airspaceconsolidation or pleural effusions. Degenerative changes of the thoracicspine. IMPRESSION: Interval resolution of pneumothorax. Increased right basilar atelectasis. CRITICAL RESULT: No. COMMUNICATION: Per this written report. By electronically signing this report, I, the attending physician, airam I have personally reviewed the images/data for the aboveexamination(s) and agree with the final edited report. Drafted by Kiran Roche MD on 07/19/2025 11:32 AM Final report signed by Yonaatn Hall MD on 07/19/2025 1:56 PM us Khushbu Gordon MD IMG XR PROCEDURES Final Result documented in this encounter Visit Diagnoses Diagnosis Nonrheumatic aortic (valve) insufficiency documented in this encounter Additional Health Concerns Active Problems Noted Date Diagnosed Date Autogenerated Problem 05/24/2025 Assessment Noted Time PHQ-9 Depression Total Score: 0 03/15/20 25 10:15 AM EDT A fall risk assessment has been complete d for the patient 05/28/2025 1:07 PM EDT A Body Mass Index follow-up plan has been documented for the patient 07/19/2025 12:46 PM EST documented as of this encounter Care Teams Coding Spec Relationship Specialty Start Date End Date Stefan Pérez MD [address] [place] [address] [address] [place] [address] PCP - General 12/08/21 Joanne Bolaños MD [address] [place] [phone] Referring Physician Interventional Cardiology 05/25/25 Moi Joseph MD [facility] [place] [address] Referring Physician Cardiology 06/30/25 documented as of this encounter
--- OUTSIDE RECORDS SUMMARY | 2025-07-19 11:20 | XMS_ITS | Encounter Summary ---
Author Organization [facility] Address [address] [place] [address] Care Team Providers Care Plumber Pipe Fitting Name Role Phone Stefan Pérez MD Primary Care Provider [phone] Joanne Bolaños MD Unavailable [phone] Moi Joseph MD Unavailable Reason for Referral * Consultation (Routine) - Authorized Specialty Diagnoses / Procedures Referred By Maryuri lopez Referred To Contact Cardiology Diagnoses S/P MVR (mitral valve repair) Khushbu Gordon MD [address] [address] Phone: tel: fax: Referral ID Status Reason Start Date Expiration Date Visits Requested Visits Authorized [id number] Authorized Specialty Services Required 5 01/19/2027 1 1 Scheduling Instructions Patient will need to be seen in [facility] * Imaging (Routine) - Pending Review Specialty Diagnoses / Procedures Referred By Contac t Referred To Contact Cardiology Diagnoses S/P MVR (mitral valve repair) Procedures Echo, Adult Transthoracic Complete Khushbu Gordon MD [address] [address] Phone: tel: fax: Referral ID Status Reason Start Date Expiration Date Visits Requested Visits Authorized [id number] Pending Review Perform Procedure 5 01/19/2027 1 1 Encounter Details Date Type Department Care Team (Latest Contact Info) Description 07/19/2025 11:20 AM EST [facility] [address], [address] [place] [address] Khushbu Gordon MD [address] [place] [address] S/P MVR (mitral valve repair) (Primary Dx); Nonrheumatic aortic (valve) insufficiency Social History Tobacco Use Types Packs/Day Years [...] money to buy more. Never true 06/28/20 Within the past 12 months, t he [...] any time in the past 12 m onths, were you homeless or living in a snf (including now)? No 06/28/2025 [facility] Answer Date Recorded In the past [...] Sign Reading Time Taken Comments Blood Pressure 153/95 07/19/2025 11:16 AM EST Pulse 87 07/19/2025 11:11 AM EST Temperature - - Respiratory Rate - - Oxygen Saturation 98% 07/19/2025 11:11 AM EST Inhaled Oxygen Concentration - - Weight 89 kg (196 lb 1.6 oz) 07/19/2025 11:11 AM EST Height 175.3 cm (5' 9 ) 07/19/2025 11:11 AM EST Body Mass Index 28.96 07/19/2025 11:11 AM EST documented in this encounter Miscellaneous Notes * Addendum Note - Jill Hernandez - 07/19/2025 11:20 AM ESTAddended by: JILL HERNANDEZ on: 07/20/2025 03:55 PM Modules accepted: Orders * Addendum Note - Jill Hernandez - 07/19/2025 11:20 AM ESTAddended by: JILL HERNANDEZ on: 07/20/2025 04:07 PM Modules accepted: Orders * Progress Notes - Nini Li PA - 07/19/2025 11:20 AM EST Reason for visit Post-op minimally invasive right thoracotomy, mitral valve repair History of present illness: Jake Pacheco is a 75 y.o. 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 Gordon on 06/25/25. He is here today for his first post-op visit. Postoperatively, he developed new-onset paroxysmal atrial fibrillation that was refractory to cardioversion. This was managed with amiodarone bolus and infusion, later transitioned to oral therapy. Rate was controlled and anticoagulation with apixaban was initiating. He was discharged on 06/29/25. He reports he has been doing well since discharge but hehas been dealing with the recent of his girlfriend. He denies chest pain and palpitations. Heexperiences some shortness of air as he continues to increase exertion. He has also had some swelling in his lower extremities for the past week. He checks his blood pressure regularly at home and reports it usually runs around 100s/80. Medical History Past Medical History[1] Problem List Problem List[2] Surgical History Surgical History[3] Social History: Tobacco: Tobacco Use: Medium Risk (07/19/2025) Patient History Smoking Tobacco Use: Former Smokeless [...] his father; shingles in his mother. Allergies: Allergies[4] Medications: Prior to Admission medications Medication Sig Start Date End Date Taking? Authorizing Provider acetaminophen (Tylenol) 500 MG tablet Take 2 tablets by mouth every 6 hours as needed for pain. 06/29/25 Yes Sulma Martel APRN amiodarone (Pacerone) 200 MG tablet Take 2 tablets by mouth 2 times a day for 4 days, THEN 1 tabletdaily. 06/29/25 08/02/25 Yes Sulma Martel APRN apixaban (Eliquis) 5 MG tablet Take 1 tablet by mouth 2 times a day. 06/29/25 07/29/25 Yes Sulma Martel APRN atorvastatin (Lipitor) 80 MG tablet Take 1 tablet by mouth nightly. 06/29/25 10/27/25 Yes Sulma Martel APRN clopidogrel (Plavix) 75 MG tablet Take 1 tablet by mouth every morning. Yes Provider, Historical metoprolol tartrate (Lopressor) 25 MG tablet Take 1 tablet by mouth 2 times a day. 06/29/25 10/27/25 Yes Sulma Martel APRN naloxone (Narcan) 4 mg/0.1 mL nasal spray 1. Give 1 spray in nostril for no/slow breathing or cannot wake after opioid use 2. Call 911 3. Repeat in other nostril if symptoms continue 06/29/25 Yes Sulma Martel APRN omeprazole (PriLOSEC) [address] capsule Take 1 capsule (20 mg total) by mouth 1 (one) time each day.Do not crush or chew. Take for 4 weeks post-operatively. 12/09/21 Yes Ronnie Thomas furosemide (Lasix) 40 MG tablet Take 1 tablet by mouth daily. x 5 days Patient not taking: Reported on 07/19/2025 06/30/25 07/05/25 Sulma Martel APRN methocarbamol (Robaxin) 750 MG tablet Take 1 tablet by mouth 4 times a day. Patient not taking: Reported on 07/19/2025 06/29/25 07/09/25 Martel, Sulma M, RAIL SWITCH[employer] Visit Vitals BP (!) 153/95 Pulse 87 SpO2 98% Body mass index is 28.96 kg/m??. Labs in last 18 hours CBC WBC 6.78 Hb 10.8 (L) Plt 262 Hct 35.5 (L) ANC ?? INR ??, PTT ??, Anti-Xa ?? BMP Na 140 Cl 103 BUN 9 Glu 144 (H) K 4.6 Co2 27 Cr 0.74 Ca 8.9 iCa ?? Mg ??, Phos ?? Lactate ?? LFT AST ?? AlkPhos ?? T Prot ?? ALK ?? Bili ?? Alb ?? D.Bili ?? Imaging: Review of Systems Cardiovascular: Positive for leg swelling. Physical Exam Vitals reviewed. Constitutional: Appearance: Normal appearance. HENT: Head: Normocephalic and atraumatic. Right Ear: External ear normal. Left Ear: External ear normal. Nose: Nose normal. Mouth/Throat: Pharynx: Oropharynx is clear. Eyes: Pupils: Pupils are equal, round, and reactive to light. Cardiovascular: Rate and Rhythm: Normal rate. Pulses: Normal pulses. Pulmonary: Effort: Pulmonary effort is normal. Breath sounds: Normal breath sounds. Abdominal: Palpations: Abdomen is soft. Genitourinary: Comments: Deferred Musculoskeletal: General: Normal range of motion. Cervical back: Normal range of motion. Right lower leg: Edema present. Left lower leg: Edema present. Skin: General: Skin is warm and dry. Capillary Refill: Capillary refill takes less than 2 seconds. Neurological: General: No focal deficit present. Mental Status: He is alert and oriented to person, place, and time. Mental status is at baseline. Psychiatric: Mood and Affect: Mood normal. Behavior: Behavior normal. Thought Content: Thought content normal. Judgment: Judgment normal. Chest incision CDI, sutures removed today Impression: Problem List[5] Jake Pacheco is a 75 y.o. 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 Gordon on 06/25/25. He is here today for his first follow up post op visit. Plan: - Continue statin, beta odalys - Patient cleared for cardiac rehab - 7 days of Lasix sent in for edema of lower extremities - Take Lasix 40 mg daily for 7 days with potassium chloride tablet - Cardiology follow up is being set up - Patient has primary care provider that he follows with regularly - Follow up in one month with echocardiogram prior to visit [1] Past Medical History: Diagnosis Date Hypertension Mitral valve insufficiency 05/24/2025 Nonrheumatic mitral valve regurgitation 04/01/2025 Osteoarthritis [2] Patient Active Problem List Diagnosis Primary osteoarthritis of left hip Smoking HTN (hypertension) High cholesterol Gastroesophageal reflux disease Primary localized osteoarthritis of left hip S/P total left hip arthroplasty COPD (chronic obstructive pulmonary disease) Nonrheumatic mitral (valve) insufficiency TIA (transient ischemic attack) BMI 28.0-28.9,adult Encounter for preprocedural cardiovascular examination Heart failure S/P MVR (mitral valve repair) Postoperative pain Atrial fibrillation (CMS/HCC) [3] Past Surgical History: Procedure Laterality Date APPENDECTOMY CARDIAC CATHETERIZATION 04/09/2025 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 HIP ARTHROPLASTY Left 12/08/2021 Left DONELL. MITRAL VALVE REPAIR 06/25/2025 Minimally invasive right thoracotomy, Mitral Valve Repair with radical reconstruction with 30mm Physioflex annuloplasty band (Dr. Khushbu Gordon) TOTAL HIP ARTHROPLASTY [4] No Known Allergies [5] Patient Active Problem List Diagnosis Primary osteoarthritis of left hip Smoking HTN (hypertension) High cholesterol Gastroesophageal reflux disease Primary localized osteoarthritis of left hip S/P total left hip arthroplasty COPD (chronic obstructive pulmonary disease) Nonrheumatic mitral (valve) insufficiency TIA (transient ischemic attack) BMI 28.0-28.9,adult Encounter for preprocedural cardiovascular examination Heart failure S/P MVR (mitral valve repair) Postoperative pain Atrial fibrillation (CMS/HCC) documented in this encounter Plan of Treatment Upcoming Encounters Date Type Department Care Team (Late st Contact Info) Description 08/23/2025 9:30 AM EST Appointment Cardiac Imaging [address] [place] [address] 08/23/2025 12:00 PM EST [facility] [address], [address] [place] [address] Khushbu Gordon MD [address] [place] [address] 09/01/2025 2:30 PM EST Office Visit [facility] [place] [address], [address] [place] [address] Elsi Mas, DO [address] [place] [address] Scheduled Orders Name Type Priority Associated Diagnoses Orde r Schedule XR Chest 2 Views Imaging Routine Nonrheumatic aortic (valve) insufficiency 1 Occurrences starting 07/15/2025 until 01/12/2027 ECG Adult ECG Routine Nonrheumatic aortic (valve) insufficiency Expected: 07/15/2025 (Approximate), Expires: 07/15/2026 Echo, Adult Transthoracic Complete Echocardiography Routine S/P MVR (mitral valve repair) Expected: 07/20/2025 (Approximate), Expires: 01/21/2027 Scheduled Referrals Name Type Priority Associated Diagnoses Order Schedule Ambulatory referral to Cardiology Outpatient Referral Routine S/P MVR (mitral valve repair) Expected: 07/20/2025 (Approximate), Expires: 01/21/2027 documented as of this encounter Goals Goal Patient Goal Type Associated Problems Recent Progress Patient-Stated? Author Autogenera herman Goal Care Plan Autogenerated Problem No Boston Stinson PA documented as of this encounter Results * XR Chest 2 [...] signing this report, I, the attending physician, shanelleat I have personally reviewed the images/data for the aboveexamination(s) and agree with the final edited report. Drafted by Kiran Roche MD on 07/19/2025 11:32 AM Final report signed by Yonatan Hall MD on 07/19/2025 1:56 PM us Khushbu Gordon MD IMG XR PROCEDURES Final Result * (ABNORMAL) Basic Metabolic Panel, Plasma (07/19/2025 10:42 AM EST) Glucose, Plasma 144(H) 74 - 99 mg/dL 07/19/2025 12:22 PM EST [facility] BUN, Plasma 9 8 - 23 mg/dL 07/19/2025 12:22 PM EST [facility] Creatinine, Plasma 0.74 0.70 - 1.20 mg/dL 07/19/2025 12:22 PM EST [facility] BUN/Creatinine Ratio 12 07/19/2025 12:22 PM EST [facility] Sodium, Plasma 140 136 - 145 mmol/L 07/19/2025 12:22 PM EST [facility] Potassium, Plasma 4.6 3.6 - 4.9 mmol/L 07/19/2025 12:22 PM EST [facility] Chloride, Plasma 103 97 - 107 mmol/L 07/19/2025 12:22 PM EST [facility] CO2, Plasma 27 22 - 29 mmol/L 07/19/2025 12:22 PM EST [facility] Anion Gap 10 6 - 16 mmol/L 07/19/2025 12:22 PM EST [facility] Total Calcium, Plasma 8.9 8.9 - 10.2 mg/dL 07/19/2025 12:22 PM EST [facility] eGFRcr 95.7 mL/min/1.7 3m*2 07/19/2025 12:22 PM EST [facility] Comment:Reported eGFRcr in m L/min/1.73m2 is based the CKD-EPI 2020 equation that does not use a race coefficient. Blood Venous blood specimen / Unknown Venipuncture / Unknown 07/19/2025 10:42 AM EST 07/19/2025 10:43 AM EST us Khushbu Gordon MD LAB BLOOD ORDERABLES Final Res ult [facility] [address] [place] [address] * (ABNORMAL) CBC W/O Differential (07/19/2025 10:42 AM EST) WBC Count 6.78 3.70 - 10.30 10*3/uL LAB HEMATOLOGY METHOD 07/19/2025 12:16 PM EST [facility] RBC Count 3.77(L) 4.60 - 6.10 10*6/uL LAB HEMATOLOGY METHOD 07/19/2025 12:16 PM EST [facility] HGB 10.8(L) 13.7 - 17.5 g/dL LAB HEMATOLOGY METHOD 07/19/2025 12:16 PM EST [facility] HCT 35.5(L) 40.0 - 51.0 % LAB HEMATOLOGY METHOD 07/19/2025 12:16 PM EST [facility] Platelet Count 262 155 - 369 10*3/uL LAB HEMATOLOGY METHOD 07/19/2025 12:16 PM EST [facility] MCV 94 79 - 98 fL LAB HEMATOLOGY METHOD 07/19/2025 12:16 PM EST [facility] MCH 28.6 26.0 - 32.0 pg LAB HEMATOLOGY METHOD 07/19/2025 12:16 PM EST [facility] MCHC 30.4(L) 30.7 - 35.5 g/dL LAB HEMATOLOGY METHOD 07/19/2025 12:16 PM EST [facility] RDW 14.6(H) 11.5 - 14.5 % LAB HEMATOLOGY METHOD 07/19/2025 12:16 PM EST [facility] MPV 10.0 8.8 - 12.5 fL LAB HEMATOLOGY METHOD 07/19/2025 12:16 PM EST [facility] nRBC 0.0 <=0.0 per 100 WBCs LAB HEMATOLOGY METHOD 07/19/2025 12:16 PM EST [facility] Blood Venous blood specimen / Unknown Venipuncture / Unknown 07/19/2025 10:42 AM EST 07/19/2025 10:43 AM EST us Khushbu Gordon MD LAB BLOOD ORDERABLES Final Res ult [facility] [address] [place] [address] documented in this encounter Visit Diagnoses Diagnosis S/P MVR (mitral valve repair)- Primary Nonrheumatic aortic (valve) insufficiency Nonrheumatic aortic (valve) insufficiency documented in this [...] documented as of this encounter Care Teams Plumber Pipe Fitting Relationship Specialty Start Date End Date Stefan Pérez MD [address] [place] [address] [address] [place] [address] PCP - General 12/08/21 Joanne Bolaños MD [address] [place] [address] Referring Physician Interventional Cardiology 05/25/25 Moi Joseph MD [address] [place] [id number] Referring Physician Cardiology 06/30/25 documented as of this encounter
--- NOTE | 2025-07-29 11:50 | XR_ITS ---
FINAL REPORT CLINICAL HISTORY: Left shoulder pain COMPARISON: None FINDINGS: LEFT SHOULDER 3 views of the left shoulder were obtained. There is no acute fracture or dislocation. There are moderate hypertrophic changes of osteoarthritis of the acromioclavicular joint. There is calcification or ossification of the distal supraspinatus tendon consistent with tendinitis. IMPRESSION: No acute bony abnormality. Osteoarthritis and tendinitis. Reviewed, Interpreted and Dictated by Jesús Ponce MD Transcribed by Terri Valdez Authenticated and [facility]
--- OUTSIDE RECORDS SUMMARY | 2025-07-29 12:01 | XMS_ITS | Clinical Summary ---
Author Organization [facility] Address [address] [place] [address] Care Team Providers Care Hooker Machine Tender Name Role Phone Stefan Pérez MD Primary Care Provider [phone] Joanne Bolaños MD Unavailable [phone] Moi Joseph MD Unavailable Allergies No known active allergies Medications omeprazole (PriLOSEC) [address] capsule Take 1 capsule (20 mg total) by mouth 1 (one) time each day. Do not crush or chew. Take for 4 weeks post-operativel y. 30 capsule 2 Active clopidogrel (Plavix) 75 MG tablet Take 1 tablet by mouth every morning. Active acetaminophen (Tylenol) 500 MG tablet Take 2 tablets by mouth every 6 hours as needed for pain. 100 tablet 5 Active amiodarone (Pacerone) 200 MG tablet Take 2 tablets by mouth 2 times a day for 4 days, THEN 1 tablet daily. 46 tablet 5 025 Active apixaban (Eliquis) 5 MG tablet Take 1 tablet by mouth 2 times a day. 60 tablet 5 Active metoprolol tartrate (Lopressor) 25 MG tablet Take 1 tablet by mouth 2 times a day. 60 tablet 3 5 026 Active methocarbamol (Robaxin) 750 MG tablet Take 1 tablet by mouth 4 times a day. 40 tablet 5 Active Additional Information Patient not taking.Reported on 07/19/2025 naloxone (Narcan) 4 mg/0.1 mL nasal spray 1. Give 1 spray in nostril for no/slow breathing or cannot wake after opioid use 2. Call 911 3. Repeat in other nostril if symptoms continue 1 each 5 Active atorvastatin (Lipitor) 80 MG tablet Take 1 tablet by mouth nightly. 30 tablet 3 5 026 Active furosemide (Lasix) 40 MG tablet Take 1 tablet by mouth daily. 7 tablet Active docusate sodium 100 MG capsule Take 100 mg by mouth 2 times a day for 10 days. Hold for loose stools 20 capsule 5 025 Additional Information Patient not taking.Reported on 07/19/2025 furosemide (Lasix) 40 MG tablet Take 1 tablet by mouth daily. x 5 days 5 tablet 5 025 Discontinu ed(Reorder ) oxyCODONE (Roxicodone) 5 MG immediate release tablet Take 1 tablet by mouth every 4 hours as needed for moderate pain for up to 3 days. 18 tablet 5 025 Additional Information Patient not taking.Reported on 07/19/2025 potassium chloride CR (Klor-Con) 10 MEQ ER tablet Take 1 tablet by mouth daily for 7 days. Do not crush, chew, or split. Take only when taking Lasix 7 tablet 5 025 Active Problems Problem Noted Date Diagnosed Date Atrial fibrillation 06/26/2025 Assessment & Plan (06/27/2025 11:08 AM EST): -Continue amiodarone infusion -PO load amio starting 06/26/25 Assessment & Plan (06/26/2025 4:15 PM EDT): -Continue amiodarone infusion -PO load amio starting 06/26/25 S/P MVR (mitral valve repair) 06/25/2025 Overview (06/25/2025): 06/25 s/p mini-thoracotomy and mitral valve repair (Evan) SBP goal <120, MAPs <85 Cleveprex gtt, wean as tolerated Monitor chest tube output closely Assessment & Plan (06/27/2025 11:08 AM EST): -Recover per protocol. -Transfer to tele 06/27 Assessment & Plan (06/26/2025 4:15 PM EDT): -Recover per protocol. -Barriers to discharge from ICU: Assessment & Plan (06/29/2025 5:24 PM EST): {Include important operative details, and any barriers to discharge from the ICU daily (can use the CVTNEEDSICU SmartPhrase).:[id number]}{TIP Tips will automatically disappear when the note is signed, there is no need to delete me! :[id number]}- Recover per protocol. -Barriers to discharge from ICU: Postoperative pain 06/25/2025 Overview (06/25/2025): - [facility] Assessment & Plan (06/27/2025 11:08 AM EST): - [facility] - Added prn lidocaine patch Assessment & Plan (06/26/2025 4:15 PM EDT): - [facility] Assessment & Plan (06/29/2025 5:24 PM EST): - [facility] Encounter for preprocedural cardiovascular exami nation 04/01/2025 Heart failure 04/01/2025 BMI 28.0-28.9,adult 03/29/2025 Assessment & Plan (06/27/2025 11:08 AM EST): - Complicates all aspects of care Assessment & Plan (06/26/2025 4:15 PM EDT): - Complicates all aspects of care Assessment & Plan (06/29/2025 5:24 PM EST): - Complicates all aspects of care COPD (chronic obstructive pulmonary disease) Assessment & Plan (06/27/2025 11:08 AM EST): - Long-term cigarette smoking history - Not requiring home O2 - Bronchodilators PRN Assessment & Plan (06/26/2025 4:15 PM EDT): - Long-term cigarette smoking history - Not requiring home O2 - Bronchodilators PRN Assessment & Plan (06/29/2025 5:24 PM EST): - Long-term cigarette smoking history - Not requiring home O2 - Bronchodilators PRN Nonrheumatic mitral (valve) insufficiency 2024 TIA (transient ischemic attack) 03/11/2025 Assessment & Plan (06/27/2025 11:08 AM EST): - May 2024 - No residual deficits - No hemodynamically significant carotid stenosis 03/2025 - Plavix for secondary prevention, resume when appropriate - Resume ASA + Statin Assessment & Plan (06/26/2025 4:15 PM EDT): - May 2024 - No residual deficits - No hemodynamically significant carotid stenosis 03/2025 - Plavix for secondary prevention, resume when appropriate - Resume ASA + Statin Assessment & Plan (06/29/2025 5:24 PM EST): - May 2024 - No residual deficits - No hemodynamically significant carotid stenosis 03/2025 - Plavix for secondary prevention, resume when appropriate - Resume ASA + Statin S/P total left hip arthroplasty 12/26/2021 Primary localized osteoarthritis of left hip HTN (hypertension) 11/29/2021 Assessment & Plan (06/27/2025 11:08 AM EST): -Monitor per protocol. Assessment & Plan (06/26/2025 4:15 PM EDT): -Monitor per protocol. Assessment & Plan (06/29/2025 5:24 PM EST): -Monitor per protocol. High cholesterol 11/29/2021 Gastroesophageal reflux disease 11/29/2021 Assessment & Plan (06/27/2025 11:08 AM EST): -Monitor per protocol. Assessment & Plan (06/26/2025 4:15 PM EDT): -Monitor per protocol. Assessment & Plan (06/29/2025 5:24 PM EST): -Monitor per protocol. Primary osteoarthritis of left hip 11/07/2021 Overview (11/07/2021): Added automatically from request for surgery [id number] Smoking 11/07/2021 Resolved Problems Problem Noted Date Diagnosed Date Resolved Date Mitral valve disease 06/25/2025 025 Assessment & Plan (06/29/2025 5:24 PM EST): -Monitor per protocol. Mitral valve insufficiency, unspecified etiology 06/25/2025 06/25/2025 Assessment & Plan (06/29/2025 5:24 PM EST): -Monitor per protocol. On mechanically assisted ventilation 06/25/2025 06/29/2025 Assessment & Plan (06/27/2025 11:08 AM EST): - Fast track appropriate - Reverse neuromuscular blockade - Resolved - Extubated to nasal cannula - Now on room air Assessment & Plan (06/26/2025 4:15 PM EDT): - Fast track appropriate - Reverse neuromuscular blockade - Resolved - Extubated to nasal cannula Assessment & Plan (06/29/2025 5:24 PM EST): - Fast track appropriate - Reverse neuromuscular blockade - Wean vent as able Assessment & Plan (06/25/2025 3:37 PM EDT): -Monitor per protocol. Mitral valve insufficiency 05/24/2025 1 08/29/2024 Assessment & Plan (06/27/2025 11:08 AM EST): -Monitor per protocol. Assessment & Plan (06/26/2025 4:15 PM EDT): -Monitor per protocol. Assessment & Plan (06/29/2025 5:24 PM EST): -Monitor per protocol. Nonrheumatic mitral valve regurgitation 04/01/2025 06/29/2025 Assessment & Plan (06/27/2025 11:08 AM EST): -Monitor per protocol. Assessment & Plan (06/26/2025 4:15 PM EDT): -Monitor per protocol. Assessment & Plan (06/29/2025 5:24 PM EST): -Monitor per protocol. Encounters Date Type Department Care Team Description 07/28/2025 Telephone [facility] Cardiothoracic [address], [address] [place] [address] Khushbu Gordon MD 07/26/2025 Telephone [facility] [address] [place] [address] Yesica Gray, PharmD 07/20/2025 Orders Only [facility] Cardiothoracic [address], [address] [place] [address] Provider, Historical 07/19/2025 11:20 AM EST Office Visit [facility] Cardiothoracic [address], [address] [place] [address] Khushbu Gordon MD S/P MVR (mitral valve repair) (Primary Dx); Nonrheumatic aortic (valve) insufficiency 07/19/2025 10:46 AM EST - 07/19/2025 11:59 PM EST Hospital Encounter [facility] Radiology [address], [address] [place] [address] Nonrheumatic aortic (valve) insufficiency Discharge Disposition: Home or Self Care 07/19/2025 Travel 06/29/2025 Travel 06/28/2025 Lab Requisition [facility] [address] [place] [address] Ryan Sosa MD Encounter for general adult medical examination without abnormal findings 06/28/2025 Telephone [facility] [address] [place] [address] Kapil Camacho, gluer machine setup operator TEST CLAIM 06/28/2025 Travel 06/27/2025 Travel 06/26/2025 Travel 06/25/2025 7:11 AM EDT Anesthesia Event [facility] [address] [place] [address] Elder Huffman MD Burns, Jonathon R, DO 06/25/2025 7:00 AM EDT - 06/25/2025 1:30 PM EDT Surgery [facility] [address] [place] [address] Khushbu Gordon MD REPAIR OR REPLACEMENT, MITRAL VALVE VIA THORACOTOMY [40016 (CPT )] 06/25/2025 5:36 AM EDT - 06/29/2025 11:30 AM EST Hospital Encounter [facility] [address] [place] [address] Khushbu Gordon MD Mitral valve disease (Primary Dx); Mitral valve insufficiency, unspecified etiology; S/P MVR (mitral valve repair) Discharge Disposition: Home or Self Care 06/25/2025 Travel 06/18/2025 11:30 AM EDT - 06/18/2025 11:59 PM EDT Hospital En[facility] [address] [place] [address] Chronic obstructive pulmonary disease with emphysema, unspecified emphysema type Discharge Disposition: Home or Self Care 06/18/2025 11:00 AM EDT Pre-[facility] Testing [facility] [address], [address] [place] [address] 06/18/2025 Travel 06/17/2025 Telephone [facility] Pre-op Clinic [address], [facility] [place] [address] James Gutiérrez MD 06/16/2025 Telephone [facility] Pre-op Clinic [address], [address] [place] [address] James Gutiérrez MD 06/15/2025 Telephone [facility] Pre-op Clinic [address], [address] [place] [address] James Gutiérrez MD 06/14/2025 Telephone [facility] Cardiothoracic [address], [address] [place] [address] Marcelle Méndez RN 05/28/2025 1:00 PM EDT Office Visit [facility] Medicine Specialties [address], [address] [place] [address] Carlos A Enrique MD Lung nodule (Primary Dx) 05/28/2025 Travel 05/24/2025 11:20 AM EDT Office Visit [facility] Cardiothoracic [address], [address] [place] [address] Khushbu Gordon MD Primary hypertension (Primary Dx); TIA (transient ischemic attack); Cerebrovascular accident (CVA), unspecified mechanism (CMS/HCC); Pulmonary emphysema, unspecified emphysema type (CMS/HCC); Mitral valve insufficiency, unspecified etiology; Pre-diabetes; Massive pulmonary hemorrhage originating in the period 05/24/2025 Travel from Last 3 Months Family History Medical [...] any time in the past 12 m [facility], were you homeless or living in a fdc (including now)? No 06/28/2025 [facility] Utilities Answer Date Recorded In the past [...] Pulse 87 07/19/2025 11:11 AM EST Temperature 36.6 C (97.8 F) 06/29/2025 8:00 AM EST Respiratory Rate 20 06/29/2025 10:00 AM EST Oxygen Saturation 98% 07/19/2025 11:11 AM EST Inhaled Oxygen Concentration - - Weight 89 kg (196 lb 1.6 oz) 07/19/2025 11:11 AM EST Height 175.3 cm (5' 9 ) 07/19/2025 11:11 AM EST Body Mass Index 28.96 07/19/2025 11:11 AM EST Plan of Treatment Upcoming Encounters Date Type Department Care Team (Late st Contact Info) Description 08/23/2025 9:30 AM EST Appointment Cardiac Imaging [address] [place] [address] 08/23/2025 12:00 PM EST [facility] Visit [facility] [address], [address] [place] [address] Khushbu Gordon MD [address] [facility] [address] [place] [address] 09/01/2025 2:30 PM EST Office Visit [facility] [place] [address], [address] [place] [address] Elsi Mas, DO [address] [place] [address] Health Maintenance Due Date Last Done Comments [facility]-Hepatitis C Screening 1950 [facility]-Medicare Annual Wellness (AWV) 1950 [facility]-/Child/Adol SDOH Screenings 1950 [facility]-DTaP,Tdap,and Td Vaccines (1 - Tdap) 1971 [facility]-Pneumococcal Vaccine: 50+ Years (1 of 2 - PCV) 1971 CT Colonography 1997 Colonoscopy 1997 FIT-DNA 1997 FIT 1997 FOBT 1997 Sigmoidoscopy 1997 [facility]-Colorectal Cancer Screening 1997 [facility]-Zoster Vaccines (1 of 2) 2002 [facility]-RSV Vaccine: 60+ Years or (1 - Risk 60-74 years 1-dose series) 2012 [facility]-Abdominal Aortic Aneurysm (AAA) Screening 2017 [id number] Vaccine ( season) 2025 09/20/2023, 2021, 02/27/2021 [facility]-Influenza Vaccine (#1) 2025 06/24/2024 [facility]- SDOH Screenings 12/26/2025 [facility]-Adult SDOH Screenings 12/26/2025 06/28/2025 [facility]-Depression Screening 04/12/2026 04/12/2025, 02/24 [facility]-Lung Cancer Screening Discontinued 04/09/2025 [facility]-Obesity Intervention Completed 025, 05/28/2025, 05/24/2025, Additional history exists HPV Vaccines Aged Out [...] on patient's age to complete this topic Goals Goal Patient Goal Type Associated Problems Recent Progress Patient-Stated? Author Autogenera herman Goal Care Plan Autogenerated Problem No [employer] PA Medical Devices Implanted Type Area Quality Assurance Clerk Device Identifier Shelf Expiration Date Model / Serial / Lot Chg Shell R3 3 Hole Acet 56mm - [id number] Implanted:Qty: 1 on 12/08/2021 by Orlando Malloy MD at [facility] Left: Hip [employer]-[id number] 05/24/2031 [id number] / / [id number] Chg Screw Ref Spher Head 25mm - [id number] Implanted:Qty: 1 on 12/08/2021 by Orlando Malloy MD at [facility] Left: Hip [employer]-[id number] 06/20/2031 [id number] / / [id number] Chg Screw Ref Spher Head 30mm - [id number] Implanted:Qty: 1 on 12/08/2021 by Orlando Malloy MD at [facility] Left: Hip [employer]-[id number] 06/14/2031 [id number] / / [id number] Chg Lnr 20 Deg 56 - [id number] Implanted:Qty: 1 on 12/08/2021 by Orlando Malloy MD at [facility] Left: Hip [employer]-[id number] 08/21/2031 [id number] / / [id number] Chg Head Oxin Mod Fem 40mm - [id number] Implanted:Qty: 1 on 12/08/2021 by Orlando Malloy MD at [facility] Left: Hip [employer]-[id number] 07/29/2031 [id number] / / [id number] Chg Stem Syn Por Plus [place] Ho Sz - [id number] Implanted:Qty: 1 on 12/08/2021 by Orlando Malloy MD at [facility] Left: Hip [employer]-[id number] 05/21/2031 [id number] / / [id number] Chg Sleeve Tit Mod Neck +0 - [id number] Implanted:Qty: 1 on 12/08/2021 by Orlando Malloy MD at [facility] Left: Hip [employer]-[id number] 05/31/2031 [id number] / / [id number] Ring Mitral Annuloplasty Physioflex 30mm - [id number] Implanted:Qty: 1 on 06/25/2025 by Khushbu Gordon MD at [facility]-54312 0 04/04/2030 [id number] / [id number] / [id number] Explanted Type Area Quality Assurance Clerk Device Identifier Shelf Expiration Date Model / Serial / Lot Liner Acet 0 Deg 56 - [id number] Explanted:Qty: 1 on 12/08/2021 by Orlando Malloy MD at [facility] Left: Hip [employer]-[id number] 06/20/2030 [id number] / / [id number] Procedures Procedure Name Priority Date/Time Associated Diagnosis Comments XR CHEST 2 VIEWS Routine 07/19/2025 10:55 AM EST Nonrheumatic aortic (valve) insufficiency CBC W/O DIFFERENTIAL Routine 07/19/2025 10:42 AM EST Nonrheumatic aortic (valve) insufficiency BASIC METABOLIC PANEL, PLASMA Routine 07/19/2025 10:42 AM EST Nonrheumatic aortic (valve) insufficiency XR CHEST 1 VIEW Routine 06/29/2025 3:09 AM EST MAGNESIUM, PLASMA Routine 06/29/2025 2:5 9 AM EST BASIC METABOLIC PANEL, PLASMA Routine 06/29/2025 2:59 AM EST CBC W/O DIFFERENTIAL Routine 06/29/2025 2:59 AM EST BASIC METABOLIC PANEL, PLASMA Routine 06/28/2025 3:20 PM EST PEP THERAPY Routine 06/28/2025 10:00 AM EST OXYGEN THERAPY Routine 06/28/2025 8:00 AM EST PEP THERAPY Routine 06/28/2025 6:00 AM EST MAGNESIUM, PLASMA Routine 06/28/2025 3:0 2 AM EST BASIC METABOLIC PANEL, PLASMA Routine 06/28/2025 3:02 AM EST CBC W/O DIFFERENTIAL Routine 06/28/2025 3:02 AM EST XR CHEST 1 VIEW Routine 06/28/2025 1:13 AM EST MULTI DRUG RESISTANCE TEST Routine 06/28/2025 Encounter for general adult medical examination without abnormal findings PEP THERAPY Routine 06/27/2025 10:00 PM EST [...] 12:00 AM EDT MAGNESIUM, PLASMA Routine 06/27/2025 12:00 AM EDT RENAL FUNCTION PANEL, PLASMA Routine 06/27/2025 12:00 AM EDT PEP THERAPY Routine 06/26/2025 10:00 PM EDT OXYGEN THERAPY Routine 06/26/2025 6:00 PM EDT PEP THERAPY Routine 06/26/2025 6:00 PM EDT PEP THERAPY Routine 06/26/2025 2:00 PM EDT MA CRITICAL CARE, ADDL 30 MIN Routine 06/26/2025 [...] EDT EXTUBATION Routine 06/26/2025 1:41 AM EDT POTASSIUM, PLASMA Timed 06/26/2025 12:45 AM EDT HEMATOCRIT, BLOOD Timed 06/26/2025 12:45 AM EDT HEMOGLOBIN Timed 06/26/2025 12:45 AM EDT BLOOD GAS PANEL, ARTERIAL Timed 06/26/2025 12:45 AM EDT PEP THERAPY Routine 06/25/2025 10:00 PM EDT POCT GLUCOSE METER UNSOLICITED RESULTS Routine 06/25/2025 8:04 PM EDT BASIC METABOLIC PANEL, PLASMA Timed 06/25/2025 7:58 PM EDT CBC W/O DIFFERENTIAL Timed 06/25/2025 7:58 PM EDT BLOOD GAS PANEL, ARTERIAL Timed 06/25/2025 7:57 PM EDT PREPARE FRESH FROZEN PLASMA Routine 06/25/2025 6:34 PM EDT PEP THERAPY Routine 06/25/2025 6:00 PM EDT VENTILATOR - ADULT Routine 06/25/2025 5: 46 PM EDT POTASSIUM, PLASMA Timed 06/25/2025 5:1 5 PM EDT HEMATOCRIT, BLOOD Timed 06/25/2025 5:1 5 PM EDT HEMOGLOBIN Timed 06/25/2025 5:15 PM EDT BLOOD GAS PANEL, ARTERIAL Timed 06/25/2025 5:14 PM EDT BLOOD GAS PANEL, ARTERIAL STAT 06/25/2025 3:47 PM EDT TEG GLOBAL HEMOSTASIS WITH HEPARINASE Routine 06/25/2025 3:46 PM EDT TEG GLOBAL HEMOSTASIS WITH LYSIS Routine 06/25/2025 3:46 PM EDT POCT GLUCOSE METER UNSOLICITED RESULTS Routine 06/25/2025 3:26 PM EDT XR ABDOMEN 1 VIEW STAT 06/25/2025 2:1 6 PM EDT XR CHEST 1 VIEW STAT 06/25/2025 2:16 PM EDT PEP THERAPY Routine 06/25/2025 2:00 PM EDT MA CRITICAL CARE, E/M 30-74 MINUTES Routine 06/25/2025 1:22 PM EDT Mitral valve disease S/P MVR (mitral valve repair) BLOOD GAS PANEL, MIXED VENOUS Routine 06/25/2025 1:22 PM EDT BLOOD GAS PANEL, ARTERIAL STAT 06/25/2025 1:22 PM EDT APTT STAT 06/25/2025 1:21 PM EDT PROTHROMBIN TIME(PT) / INR STAT 06/25/2025 1:21 PM EDT PHOSPHORUS, PLASMA STAT 06/25/2025 1: 21 PM EDT MAGNESIUM, PLASMA STAT 06/25/2025 1:2 1 PM EDT BASIC METABOLIC PANEL, PLASMA STAT 06/25/2025 1:21 PM EDT CBC W/O DIFFERENTIAL STAT 06/25/2025 1:21 PM EDT VIANNEY AURIS SURVEILLANCE BY PCR Routine 06/25/2025 1:14 [...] AM EDT Mitral valve insufficiency, unspecified etiology PB ANESTHESIA NON-TIMED PROCEDURE PLACEHOLDER Routine 06/25/2025 9:38 AM EDT POCT ARTERIAL BLOOD GAS GEM [...] UNSOLICITED RESULTS Routine 06/25/2025 7:47 AM EDT MA INSERT/PLACE FLOW DIRECT CATH Routine 06/25/2025 7:35 AM EDT ANESTHESIA ULTRASOUND GUIDED Routine 06/25/2025 7:35 AM EDT PB ANESTHESIA NON-TIMED PROCEDURE PLACEHOLDER Routine 06/25/2025 7:35 AM EDT MA AN CENTRAL LINE TRIPLE LUMEN Routine 06/25/2025 7:35 AM EDT PB ANESTHESIA PLACEHOLDER Routine 06/25/2025 7:25 AM EDT MA AN ELECTIVE ENDOTRACHEAL AIRWAY Routine 06/25/2025 7:25 AM EDT PB ANESTHESIA NON-TIMED PROCEDURE PLACEHOLDER Routine 06/25/2025 7:18 AM EDT MA REPLACEMENT OF MITRAL VALVE 06/25/2025 6:49 AM EDT Mitral valve insufficiency, unspecified etiology POCT GLUCOSE METER UNSOLICITED RESULTS Routine 06/25/2025 6:37 AM EDT TYPE AND SCREEN Routine 06/25/2025 6:36 AM EDT PREPARE RBC Routine 06/25/2025 6:04 AM EDT XR CHEST 2 VIEWS Routine 06/18/2025 12:24 PM EDT Chronic obstructive pulmonary disease with emphysema, unspecified emphysema type CBC WITH AUTO DIFFERENTIAL Routine 06/18/2025 11:27 AM EDT Mitral valve insufficiency, unspecified etiology COMPREHENSIVE METABOLIC PANEL, PLASMA Routine 06/18/2025 11:27 AM EDT Mitral valve insufficiency, unspecified etiology HEMOGLOBIN A1C Routine 06/18/2025 11:27 AM EDT Mitral valve insufficiency, unspecified etiology Pre-diabetes PROTHROMBIN TIME(PT) / INR Routine 06/18/2025 11:27 AM EDT Mitral valve insufficiency, unspecified etiology APTT Routine 06/18/2025 11:27 AM EDT Mitral valve insufficiency, unspecified etiology Massive pulmonary hemorrhage originating in the period CT ANGIO CHEST Routine 04/09/2025 1:32 PM EDT Nonrheumatic mitral (valve) insufficiency from Last 3 Months or Most Recently Relevant to Health Maintenance Results * XR Chest 2 Views (07/19/2025 10:55 AM EST) Only the most recent of2 resultswithin the time period is included. Anatomical Region Laterality Modality Chest Digital Radiogra [...] IMG XR PROCEDURES Final Result * (ABNORMAL) CBC W/O Differential (07/19/2025 10:42 AM EST) Only the most recent of5 resultswithin the time period is included. WBC Count 6.78 3.70 - 10.30 10*3/uL LAB HEMATOLOGY METHOD 07/19/2025 12:16 PM EST [facility] RBC Count 3.77(L) 4.60 - 6.10 10*6/uL LAB HEMATOLOGY METHOD 07/19/2025 12:16 PM EST [facility] HGB 10.8(L) 13.7 - 17.5 g/dL LAB HEMATOLOGY METHOD 07/19/2025 12:16 PM EST [facility] HCT 35.5(L) 40.0 - 51.0 % LAB HEMATOLOGY METHOD 07/19/2025 12:16 PM EST [facility] Platelet Count 262 155 - 369 10*3/uL LAB HEMATOLOGY METHOD 07/19/2025 12:16 PM EST [facility] MCV 94 79 - 98 fL LAB HEMATOLOGY METHOD 07/19/2025 12:16 PM EST [facility] MCH 28.6 26.0 - 32.0 pg LAB HEMATOLOGY METHOD 07/19/2025 12:16 PM EST [facility] MCHC 30.4(L) 30.7 - 35.5 g/dL LAB HEMATOLOGY METHOD 07/19/2025 12:16 PM EST [facility] RDW 14.6(H) 11.5 - 14.5 % LAB HEMATOLOGY METHOD 07/19/2025 12:16 PM [facility] MPV 10.0 8.8 - 12.5 fL LAB HEMATOLOGY METHOD 07/19/2025 12:16 PM EST [facility] nRBC 0.0 <=0.0 per 100 WBCs LAB HEMATOLOGY METHOD 07/19/2025 12:16 PM EST [facility] Blood Venous blood specimen / Unknown Venipuncture / Unknown 07/19/2025 10:42 AM EST 07/19/2025 10:43 AM EST us Khushbu Gordon MD LAB BLOOD ORDERABLES Final Res ult [facility] [address] [place] [address] * (ABNORMAL) Basic Metabolic Panel, Plasma (07/19/2025 10:42 AM EST) Only the most recent of6 resultswithin the time period is included. Glucose, Plasma 144(H) 74 - 99 mg/dL 07/19/2025 12:22 PM EST [facility] BUN, Plasma 9 8 - 23 mg/dL 07/19/2025 12:22 PM EST [facility] Creatinine, Plasma 0.74 0.70 - 1.20 mg/dL 07/19/2025 12:22 PM EST [facility] BUN/Creatinine Ratio 12 07/19/2025 12:22 PM EST [facility] Sodium, Plasma 140 136 - 145 mmol/L 07/19/2025 12:22 PM EST [facility] Potassium, Plasma 4.6 3.6 - 4.9 mmol/L 07/19/2025 12:22 PM EST [facility] Chloride, Plasma 103 97 - 107 mmol/L 07/19/2025 12:22 PM EST [facility] CO2, Plasma 27 22 - 29 mmol/L 07/19/2025 12:22 PM EST [facility] Anion Gap 10 6 - 16 mmol/L 07/19/2025 12:22 PM EST [facility] Total Calcium, Plasma 8.9 8.9 - 10.2 mg/dL 07/19/2025 12:22 PM EST [facility] eGFRcr 95.7 mL/min/1.7 3m*2 07/19/2025 12:22 PM EST [facility] Comment:Reported eGFRcr in m L/min/1.73m2 is based the CKD-EPI 2020 equation that does not use a race coefficient. Blood Venous blood specimen / Unknown Venipuncture / Unknown 07/19/2025 10:42 AM EST 07/19/2025 10:43 AM EST us Khushbu Gordon MD LAB BLOOD ORDERABLES Final Res ult [facility] [address] [place] [address] * XR Chest 1 View (06/29/2025 3:09 AM EST) Only the most recent of5 resultswithin the time period is included. Anatomical Region Laterality Modality Chest Digital Radiogra [...] MD on 06/29/2025 9:55 AM us Sulma Aj Tahmina AIRCRAFT LOG CLERK IMG XR PROCEDURES Final Resu lt * Magnesium (06/29/2025 2:59 AM EST) Only the most recent of5 resultswithin the time period is included. Magnesium, Plasma 2.1 1.9 - 2.4 mg/dL 06/29/2025 3:32 AM EST [facility] Blood Venous blood specimen / Unknown Venipuncture / Unknown 06/29/2025 2:59 AM EST 06/29/2025 3:03 AM EST us Khushbu Gordon MD LAB BLOOD ORDERABLES Final Res ult [facility] [address] [place] [address] * Multi Drug Resistance Test (06/28/2025) Only the most recent of2 resultswithin the time period is included. Culture No growth at day 1 06/29/2025 12:06 PM EST [facility] Swab (Nares and Nereida Rectal) 06/28/2025 06/28/2025 10:36 AM EST Narrative [facility] - 06/29/2025 12:06 PM EST This test was developed and its performance characteristics determined by the [facility]. Although the media is FDA-approved, it is not FDA-approved for all specimen types submitted. The FDA has determined that such clearance or approval is not necessary. This test is used for surveillance purposes. It should not be regarded as investigational or for research. The [facility] is certified under the Clinical Laboratory Improvement Amendments of 1988 (CLIA-88) as qualified to perform high complexity clinical laboratory testing. us Ryan Sosa MD LAB MICROBIOLOGY - GEN ERAL ORDERABLES Final Result Performing Organization Address City/[facility] Co de Phone Number [facility] [address] [place] [address] * (ABNORMAL) POCT glucose meter (06/27/2025 2:30 PM EST) Only the most recent of8 resultswithin the time period is included. [facility] POCT Glucose 117(H) 74 - 99 mg/dL 06/27/2025 2:31 PM EST [facility] Comment:Accuracy of a glucos e result [...] for testing. Comment 06/27/2025 2:31 PM EST [facility] Events Director ID Betito Gold 06/27/2025 2:31 PM EST [facility] Device ID [id number] 06/27/2025 2:31 PM EST [facility] Specimen Type POC Capillary 06/27/2025 2:31 PM EST [facility] Blood Capillary blood specimen / Unknown 06/27/2025 2:30 PM EST 06/27/2025 2:31 PM EST Khushbu Gordon MD LAB POINT OF CARE TE ST DOCKED DEVICE UNSOLICITED RESULTS Final Result Performing Organization Address City/[facility] Co de Phone Number [facility] [address] [place] [address] * (ABNORMAL) Ionized calcium, whole blood (06/27/2025 4:20 AM EST) Only the most recent of2 resultswithin the time period is included. [facility] Ionized Calcium, Whole Blood 4.2(L) 4.6 - 5.1 mg/dL LAB HEMATOLOGY METHOD 06/27/2025 4:25 AM EST [facility] Blood Venous blood specimen / Unknown Venipuncture / Unknown 06/27/2025 4:20 AM EST 06/27/2025 4:24 AM EST us Khushbu Gordon MD LAB BLOOD ORDERABLES Final Res ult [facility] [address] [place] [address] * (ABNORMAL) Renal Function Panel, Plasma (06/27/2025 12:00 AM EDT) Glucose, Plasma 119(H) 74 - 99 mg/dL 06/27/2025 12:37 AM EDT [facility] BUN, Plasma 17 8 - 23 mg/dL 06/27/2025 12:37 AM EDT [facility] Creatinine, Plasma 0.71 0.70 - 1.20 mg/dL 06/27/2025 12:37 AM EDT [facility] BUN/Creatinine Ratio 24 06/27/2025 12:37 AM EDT [facility] Sodium, Plasma 139 136 - 145 mmol/L 06/27/2025 12:37 AM EDT [facility] Potassium, Plasma 4.1 3.6 - 4.9 mmol/L 06/27/2025 12:37 AM EDT [facility] Chloride, Plasma 103 97 - 107 mmol/L 06/27/2025 12:37 AM EDT [facility] CO2, Plasma 27 22 - 29 mmol/L 06/27/2025 12:37 AM EDT [facility] Anion Gap 9 6 - 16 mmol/L 06/27/2025 12:37 AM EDT [facility] Total Calcium, Plasma 8.0(L) 8.9 - 10.2 mg/dL 06/27/2025 12:37 AM EDT [facility] Phosphorus, Plasma 2.3(L) 2.5 - 4.5 mg/dL 06/27/2025 12:37 AM EDT [facility] Albumin, Plasma 3.5 3.5 - 5.2 g/dL 06/27/2025 12:37 AM EDT [facility] eGFRcr 96.9 mL/min/1.7 3m*2 06/27/2025 12:37 AM EDT [facility] Comment:Reported eGFRcr in m L/min/1.73m2 is based the CKD-EPI 2020 equation that does not use a race coefficient. Blood Venous blood specimen / Unknown Venipuncture / Unknown 06/27/2025 12:00 AM EDT 06/27/2025 12:08 AM EDT Khushbu Gordon MD LAB BLOOD ORDERABLES Final Res ult [facility] [address] [place] [address] * MA CRITICAL CARE, ADDL 30 MIN (06/26/2025 1:24 [...] with the findings and plan as documented. Clemente Pollard MD IN CLINIC/BEDSIDE ORDERABLES Fi nal Result * (ABNORMAL) Blood gas, arterial (06/26/2025 4:06 AM EDT) Only the most recent of7 resultswithin the time period is included. pH, Arterial 7.43(H) 7.31 - 7.42 LAB HEMATOLOGY METHOD 06/26/2025 4:16 AM EDT [facility] pCO2, Arterial 37 32 - 45 mmHg LAB HEMATOLOGY METHOD 06/26/2025 4:16 AM EDT [facility] pO2, Arterial 102 >70 mmHg LAB HEMATOLOGY METHOD 06/26/2025 4:16 AM EDT [facility] SO2, Measured, Arterial 99(H) 94 - 98 % LAB HEMATOLOGY METHOD 06/26/2025 4:16 AM EDT [facility] Base Excess, Arterial 0.2 -2.0 - 3.0 mmol/L LAB HEMATOLOGY METHOD 06/26/2025 4:16 AM EDT [facility] Bicarbonate, Calculated, Arterial 24 22 - 26 mmol/L LAB HEMATOLOGY METHOD 06/26/2025 4:16 AM EDT [facility] Hematocrit, Whole Blood 32.4(L) 40.0 - 51.0 % LAB HEMATOLOGY METHOD 06/26/2025 4:16 AM EDT [facility] Sodium, Whole Blood 140 136 - 145 mmol/L LAB HEMATOLOGY METHOD 06/26/2025 4:16 AM EDT [facility] Potassium, Whole Blood 5.2(H) 3.6 - 4.9 mmol/L LAB HEMATOLOGY METHOD 06/26/2025 4:16 AM EDT [facility] Chloride, Whole Blood 109(H) 97 - 107 mmol/L LAB HEMATOLOGY METHOD 06/26/2025 4:16 AM EDT [facility] Glucose, Whole Blood 149(H) 74 - 99 mg/dL LAB HEMATOLOGY METHOD 06/26/2025 4:16 AM EDT [facility] Ionized Calcium, Whole Blood 4.2(L) 4.6 - 5.1 mg/dL LAB HEMATOLOGY METHOD 06/26/2025 4:16 AM EDT [facility] Lactate, Arterial, Whole Blood 1.2 0.5 - 1.6 mmol/L LAB HEMATOLOGY METHOD 06/26/2025 4:16 AM EDT [facility] Blood Arterial blood specimen / Unknown Arterial Puncture / Unknown 06/26/2025 4:06 AM EDT 06/26/2025 4:14 AM EDT us Khushbu Gordon MD LAB BLOOD ORDERABLES Final Res ult [facility] [address] [place] [address] * ECG Adult - POD 1 (06/26/2025 1:59 AM EDT) Only the most recent of2 resultswithin the time period is included. EKG DIAGNOSIS CLASS Abnormal MUSE ECG Ventricular Rate 90 BPM MUSE ECG QRSD Interval 76 ms MUSE ECG QT Interval 372 ms MUSE ECG QTC Interval 455 ms MUSE ECG R [place] 32 degrees MUSE ECG T Wave [place] 66 degrees MUSE ECG Diagnosis Atrial fibrillation with controlled ventricular response MUSE ECG Diagnosis Abnormal ECG MUSE ECG Diagnosis MUSE ECG Diagnosis Confirmed by Jovi Perez ([id number]) on 06/26/2025 9:05:21 PM MUSE ECG 06/26/2025 1:59 AM EDT 06/26/2025 9:05 PM EDT us Khushbu Gordon MD ECG ORDERABLES Final Result Performing Organization Address City/[facility]/ZIP Co de Phone Number MUSE ECG * (ABNORMAL) Hemoglobin (06/26/2025 12:45 AM EDT) Only the most recent of2 resultswithin the time period is included. HGB 11.0(L) 13.7 - 17.5 g/dL LAB HEMATOLOGY METHOD 06/26/2025 1:03 AM EDT [facility] Blood Venous blood specimen / Unknown Venipuncture / Unknown 06/26/2025 12:45 AM EDT 06/26/2025 12:54 AM EDT us Khushbu Gordon MD LAB BLOOD ORDERABLES Final Res ult [facility] [address] [place] [address] * (ABNORMAL) Hematocrit (06/26/2025 12:45 AM EDT) Only the most recent of2 resultswithin the time period is included. HCT 33.8(L) 40.0 - 51.0 % LAB HEMATOLOGY METHOD 06/26/2025 1:03 AM EDT [facility] Blood Venous blood specimen / Unknown Venipuncture / Unknown 06/26/2025 12:45 AM EDT 06/26/2025 12:54 AM EDT us Khushbu Gordon MD LAB BLOOD ORDERABLES Final Res ult Performing Organization Address City/[facility]/ZIP Co de Phone Number [facility] [address] [place] [address] * Potassium, Plasma (06/26/2025 12:45 AM EDT) Only the most recent of2 resultswithin the time period is included. Potassium, Plasma 4.8 3.6 - 4.9 mmol/L 06/26/2025 1:15 AM EDT [facility] Blood Venous blood specimen / Unknown Venipuncture / Unknown 06/26/2025 12:45 AM EDT 06/26/2025 12:54 AM EDT us Khushbu Gordon MD LAB BLOOD ORDERABLES Final Res ult Performing Organization Address City/[facility]/ZIP Co de Phone Number [facility] [address] [place] [address] * Prepare Fresh Frozen Plasma: 1 Units (06/25/2025 6:34 PM EDT) Product Code [id number] BLOO D BANK Dispense Status Transfused BLOOD BANK Blood Expiration Date [id number] BLOOD BANK Unit Number [id number] CH B LOOD BANK Product Blood Type 6200 BLOOD BANK Blood Type A+ BLOOD BANK Blood Venous blood specimen / Unknown us Khushbu Gordon MD BLOOD BANK PRODUCT ORDERABLES Final Result Performing Organization Address City/[facility]/ZIP Co de Phone Number BLOOD BANK [address] [place] [address], * (ABNORMAL) TEG Global Hemostasis with Heparinase (06/25/2025 3:46 PM EDT) R >17.0(H) 4.6 - 9.1 min 06/25/2025 5:30 PM EDT [facility] R, Heparinase 7.0 4.3 - 8.3 min 06/25/2025 5:30 PM EDT [facility] K 2.3(H) 0.8 - 2.1 min 06/25/2025 5:30 PM EDT [facility] Angle 56.6(L) 63.0 - 78.0 degrees 06/25/2025 5:30 PM EDT [facility] MA 49.8(L) 52.0 - 69.0 mm 06/25/2025 5:30 PM EDT [facility] MA, Rapid 61.5 52.0 - 70.0 mm 06/25/2025 5:30 PM EDT [facility] MA, Fibrinogen 20.6 15.0 - 32.0 mm 06/25/2025 5:30 PM EDT [facility] FLEV 375.9 278.0 - 581.0 mg/dl 06/25/2025 5:30 PM EDT [facility] Blood Venous blood specimen / Unknown Venipuncture / Unknown 06/25/2025 3:46 PM EDT 06/25/2025 4:28 PM EDT us Khushbu Gordon MD LAB BLOOD ORDERABLES Final Res ult [facility] [address] [place] [address] * (ABNORMAL) TEG Global Hemostasis with Lysis (06/25/2025 3:46 PM EDT) R, Lysis >17.0(H) 4.6 - 9.1 min 06/25/2025 6:11 PM EDT [facility] MA, Rapid, Lysis 60.2 52.0 - 70.0 mm 06/25/2025 6:11 PM EDT [facility] MA, Fibrinogen, Lysis 18.6 15.0 - 32.0 mm 06/25/2025 6:11 PM EDT [facility] LY30 1.2 0.0 - 2.6 % 06/25/2025 6:11 PM EDT [facility] Blood Venous blood specimen / Unknown Venipuncture / Unknown 06/25/2025 3:46 PM EDT 06/25/2025 4:28 PM EDT Khushbu Gordon MD LAB BLOOD ORDERABLES Final Res ult [facility] [address] [place] [address] * XR Abdomen 1 View (06/25/2025 2:16 [...] of the abdomen. COMPARISON: None. FINDINGS: Limited [id number] abdominal radiograph for the purpose of locating tube position. The tip of the enteric tube is in the proximal stomach. The proximal side port is in the distal esophagus. Procedure Note Oniel Morgan MD - 06/25/2025 CLINICAL INDICATION: OG confuirmation TECHNIQUE: Supine radiograph of the abdomen. COMPARISON: None. FINDINGS: Limited [id number] abdominal radiograph for the purpose of locatingtube [...] MD IMG XR PROCEDURES Final Result * MA CRITICAL CARE, E/M 30-74 MINUTES (06/25/2025 1:22 [...] LAB HEMATOLOGY METHOD 06/25/2025 1:45 PM EDT [facility] pCO2, Mixed Venous 57(H) 40 - 55 mmHg LAB HEMATOLOGY METHOD 06/25/2025 1:45 PM EDT [facility] pO2, Mixed Venous 38 25 - 40 mmHg LAB HEMATOLOGY METHOD 06/25/2025 1:45 PM EDT [facility] SO2, Measured, Mixed Venous 68 65 - 80 % LAB HEMATOLOGY METHOD 06/25/2025 1:45 PM EDT [facility] Base Excess, Mixed Venous -1.4 -2.0 - 3.0 mmol/L LAB HEMATOLOGY METHOD 06/25/2025 1:45 PM EDT [facility] Bicarbonate, Calculated, Mixed Venous 26 22 - 26 mmol/L LAB HEMATOLOGY METHOD 06/25/2025 1:45 PM EDT [facility] Hematocrit, Whole Blood 34.4(L) 40.0 - 51.0 % LAB HEMATOLOGY METHOD 06/25/2025 1:45 PM EDT [facility] Sodium, Whole Blood 141 136 - 145 mmol/L LAB HEMATOLOGY METHOD 06/25/2025 1:45 PM EDT [facility] Potassium, Whole Blood 3.2(L) 3.6 - 4.9 mmol/L LAB HEMATOLOGY METHOD 06/25/2025 1:45 PM EDT [facility] Chloride, Whole Blood 110(H) 97 - 107 mmol/L LAB HEMATOLOGY METHOD 06/25/2025 1:45 PM EDT [facility] Ionized Calcium, Whole Blood 4.2(L) 4.6 - 5.1 mg/dL LAB HEMATOLOGY METHOD 06/25/2025 1:45 PM EDT [facility] Glucose, Whole Blood 183(H) 74 - 99 mg/dL LAB HEMATOLOGY METHOD 06/25/2025 1:45 PM EDT [facility] Blood Mixed venous blood specimen / Unknown 06/25/2025 1:22 PM EDT 06/25/2025 1:41 PM EDT Khushbu Gordon MD LAB BLOOD ORDERABLES Final Res ult Performing Organization Address City/[facility]/ZIP Co de Phone Number [facility] [address] [place] [address] * (ABNORMAL) APTT (06/25/2025 1:21 PM EDT) Only the most recent of2 resultswithin the time period is included. aPTT 49(H) 25 - 35 sec LAB COAGULATION METHOD 06/25/2025 2:47 PM EDT [facility] Blood Venous blood specimen / Unknown Venipuncture / Unknown 06/25/2025 1:21 PM EDT 06/25/2025 1:41 PM EDT us Khushbu Gordon MD LAB BLOOD ORDERABLES Final Res ult Performing Organization Address City/[facility]/ZIP Co de Phone Number [facility] [address] [place] [address] * (ABNORMAL) Protime-INR (06/25/2025 1:21 PM EDT) Only the most recent of2 resultswithin the time period is included. Pathologist [facility] Prothrombin Time 16.9(H) 12.0 - 14.3 sec LAB COAGULATION METHOD 06/25/2025 2:47 PM EDT [facility] INR 1.3(H) 0.9 - 1.1 LAB COAGULATION METHOD 06/25/2025 2:47 PM EDT [facility] Blood Venous blood specimen / Unknown Venipuncture / Unknown 06/25/2025 1:21 PM EDT 06/25/2025 1:41 PM EDT Narrative [facility] - 06/25/2025 2:47 PM EDT OPTIMAL INR RANGES FOR PATIENT ON ORAL ANTICOAGULANT THERAPY Prevention of venous thromboembolism INR 2.0 to 3.0 In patients with heart disease: Atrial fibrillation INR 2.0 to 3.0 Valvular heart disease INR 2.0 to 3.0 Tissue heart valves INR 2.0 to 3.0 Mechanical prosthetic valves INR 2.5 to 3.5 Prevention of recurrent DE INR 2.5 to 3.5 Khushbu Gordon MD LAB BLOOD ORDERABLES Final Res ult Performing Organization Address City/[facility]/ZIP Co de Phone Number [facility] [address] [place] [address] * Phosphorus (06/25/2025 1:21 PM EDT) [facility] Phosphorus, Plasma 3.1 2.5 - 4.5 mg/dL 06/25/2025 2:10 PM EDT [facility] Blood Venous blood specimen / Unknown Venipuncture / Unknown 06/25/2025 1:21 PM EDT 06/25/2025 1:41 PM EDT Khushbu Gordon MD LAB BLOOD ORDERABLES Final Res ult [facility] [address] [place] [address] * Vianney auris Surveillance by PCR (06/25/2025 1:14 PM EDT) Pathologist [facility] Vianney auris PCR Result Not Detected Not Detected 06/26/2025 3:18 PM EDT [facility] Swab (Axilla and Groin) Non-blood Collection / Unknown 06/25/2025 1:14 PM EDT 06/25/2025 2:25 PM EDT Narrative [facility] - 06/26/2025 3:18 PM EDT This PCR assay was developed and its performance characteristics determined by [facility] as appropriate for clinical purposes. This assay has not been cleared or approved by the FDA, but is performed in a CLIA regulated laboratory that is qualified to perform high-complexity testing. us Khushbu Gordon MD LAB MICROBIOLOGY - GENERAL ORD ERABLES Final Result [facility] [address] [place] [address] * QPLUS (06/25/2025 11:56 AM EDT) Clot Time 157 104 - 166 Seconds 06/25/2025 12:15 PM EDT [facility] Clot Time Ratio 1.1 0.8 - 1.2 12:15 PM EDT [facility] Comment:The Clot Time Ratio (CTR) is a calculated parameter. CTR values of 0.8 1.2 are demonstrated to be typical of n ormal patient samples. Samples with CTR values > 1.4 are indicative of prolongation of the intrinsic pathway clotting time, likely due to the influence of unfractionated heparin. POCT Clot Stiffness 20.8 13.0 - 33.2 hectoPascals 06/25/2025 12:15 PM EDT [facility] Platelet Contribution to Clot Stiffnes 17.7 11.9 - 29.8 hectoPascals 06/25/2025 12:15 PM EDT [facility] Fibrinogen Contribution to Clot Stiffness 3.1 1.0 - 3.7 hectoPascals 06/25/2025 12:15 PM EDT [facility] Heparinase Clot Time 138 103 - 153 Seconds 06/25/2025 12:15 PM EDT [facility] Events Director ID Elder Huffman 06/25/2025 12:15 PM EDT [facility] Device ID [id number] 06/25/2025 12:15 PM EDT [facility] Whole Blood 06/25/2025 11:5 6 AM EDT 06/25/2025 12:15 PM EDT Khushbu Gordon MD LAB POINT OF CARE TE ST DOCKED DEVICE UNSOLICITED RESULTS Final Result Performing Organization Address City/State/[facility] Co de Phone Number [facility] [address] [place] [address] * (ABNORMAL) POCT arterial blood gas gem (06/25/2025 11:49 AM EDT) Only the most recent of8 resultswithin the time period is included. pH, Arterial 7.41 7.31 - 7.42 06/25/2025 11:56 AM EDT [facility] pCO2, Arterial 39 32 - 45 mm Hg 06/25/2025 11:56 AM EDT [facility] pO2, Arterial 228 >70 mm Hg 06/25/2025 11:56 AM EDT [facility] SO2, Arterial 99(H) 94 - 98 % 06/25/2025 11:56 AM EDT [facility] Base Excess, Arterial 0.1 -2 - 3 mmol/L 06/25/2025 11:56 AM EDT [facility] HCO3, Arterial 24.7 22 - 26 mmol/L 06/25/2025 11:56 AM EDT [facility] Total Hemoglobin, Arterial, Whole Blood 11.0(L) 13.7 - 17.5 g/dL 06/25/2025 11:56 AM EDT [facility] Hematocrit, Arterial 33.0(L) 40 - 51.0 % 06/25/2025 11:56 AM EDT [facility] Sodium, Arterial 138 136 - 145 mmol/L 06/25/2025 11:56 AM EDT [facility] Potassium, Arterial 3.5(L) 3.6 - 4.9 mmol/L 06/25/2025 11:56 AM EDT [facility] Chloride, Whole Blood 106 97 - 107 mmol/L 06/25/2025 11:56 AM EDT [facility] Glucose, Arterial 197(H) 74 - 99 mg/dL 06/25/2025 11:56 AM EDT [facility] Ionized Calcium, Arterial 4.1(L) 4.6 - 5.1 mg/dL 06/25/2025 11:56 AM EDT [facility] Lactate, Arterial 1.6 0.5 - 1.6 mmol/L 06/25/2025 11:56 AM EDT [facility] Body Temperature 37.0 Celsius 06/25/2025 11:56 AM EDT [facility] pH, Temp Corrected, Arterial 7.41 7.31 - 7.42 06/25/2025 11:56 AM EDT [facility] pCO2, Temp Corrected, Arterial 39 32 - 45 mm Hg 06/25/2025 11:56 AM EDT [facility] pO2, Temp Corrected, Arterial 228 >70 mm Hg 06/25/2025 11:56 AM EDT [facility] Events Director ID Orlando Harris 06/25/2025 11:56 AM EDT [facility] Blood Whole blood specimen / Unknown 06/25/2025 11:49 AM EDT 06/25/2025 11:56 AM EDT Khushbu Gordon MD LAB POINT OF CARE TE ST DOCKED DEVICE UNSOLICITED RESULTS Final Result [facility] [address] [place] [address] * POCT ACT (06/25/2025 11:40 AM EDT) Only the most recent of8 resultswithin the time period is included. ACT+ (HIGH RANGE) 115 68 - 600 Seconds 06/28/2025 5:10 PM EST [facility] Events Director ID Karla Hendrickson 06/28/2025 5:10 PM EST [facility] ACT Device ID [id number] 06/28/2025 5:10 PM EST [facility] Comment 06/28/2025 5:10 PM EST [facility] Comment: ACT performed by staff [...] ST DOCKED DEVICE UNSOLICITED RESULTS Final Result [facility] [address] [facility] [address] [place] [address] * Surgical Pathology Exam (06/25/2025 9:50 AM EDT) Case Report Surgical Pathology Case: [id number] Authorizing Provider: Khushbu Gordon MD Collected: 06/25/2025 0950 Ordering Location: [facility] A OPERATING ROOM Received: 06/25/2025 1300 Pathologist: Fadi Hickey DO Specimen: Heart, posterior mitral valve leaflets 06/28/2025 1:49 PM EST [facility] Final Diagnosis POSTERIOR MITRAL VALVE LEAFLETS, REPAIR: - VALVULAR TISSUE WITH DEGENERATIVE CHANGES. - NEGATIVE FOR VEGETATIONS OR SIGNIFICANT INFLAMMATION. 06/28/2025 1:49 PM EST [facility] at 1349 EST Clinical Information Mitral valve insufficiency, unspecified etiology [I34.0] 06/28/2025 1:49 PM EST [facility] Gross Description A. POSTERIOR MITRAL VALVE LEAFLETS Received in formalin labeled posterior mitral valve leaflets is a portion of white-larios filiform fibrous tissue measuring 3.2 x 1.5 x 0.3 cm. The specimen is serially sectioned and entirely submitted in cassette A1. Cold Time: <1m Odessa Goodman 06/28/2025 1:49 PM EST [facility] Note: A resident was involved in the service. I attest I examined the relevant preparations for the specimens and confirmed the diagnosis or interpretation. 06/28/2025 1:49 PM EST [facility] Tissue Heart structure / Unknown 06/25/2025 9:50 AM EDT 06/25/2025 1:00 PM EDT Comment:Pre-op diagnosis: Mitral valve insufficiency, unspecified etiology [I34.0] us Khushbu Gordon MD LAB PATHOLOGY ORDERABLES Final Result [facility] [address] [place] [address] * PB ANESTHESIA NON-TIMED PROCEDURE PLACEHOLDER (06/25/2025 [...] ORDERABLES Edited Res ult - Final * MA AN CENTRAL LINE TRIPLE LUMEN, PB ANESTHESIA NON-TIMED PROCEDURE PLACEHOLDER, ANESTHESIA ULTRASOUND GUIDED, MA INSERT/PLACE FLOW DIRECT CATH (06/25/2025 7:35 AM [...] MD ANESTHESIA ORDERABLES Final Resu lt * MA AN ELECTIVE ENDOTRACHEAL AIRWAY, PB ANESTHESIA PLACEHOLDER [...] MD ANESTHESIA ORDERABLES Final Resu lt * Type and Screen (06/25/2025 6:36 AM EDT) Pathologist [facility] ABO/Rh A Positive 06/25/2025 6:50 AM EDT [facility]LOOD [facility] Antibody Screen Negative 06/25/2025 6:50 AM EDT [facility] Specimen Expiration 06/29/2025 00:59 06/25/2025 6:50 AM EDT [facility] Blood Venous blood specimen / Unknown Venipuncture / Unknown 06/25/2025 6:36 AM EDT 06/25/2025 6:50 AM EDT Khushbu Gordon MD LAB BLOOD BANK TEST ORDERABLES Final Result [facility] B[facility] [address] [place] [address], * (ABNORMAL) CBC and Differential (06/18/2025 11:27 AM EDT) Pathologist [facility] WBC Count 7.06 3.70 - 10.30 10*3/uL LAB HEMATOLOGY METHOD 06/18/2025 1:29 PM EDT [facility] RBC Count 4.33(L) 4.60 - 6.10 10*6/uL LAB HEMATOLOGY METHOD 06/18/2025 1:29 PM EDT [facility] HGB 12.7(L) 13.7 - 17.5 g/dL LAB HEMATOLOGY METHOD 06/18/2025 1:29 PM EDT [facility] HCT 38.7(L) 40.0 - 51.0 % LAB HEMATOLOGY METHOD 06/18/2025 1:29 PM EDT [facility] Platelet Count 194 155 - 369 10*3/uL LAB HEMATOLOGY METHOD 06/18/2025 1:29 PM EDT [facility] MCV 89 79 - 98 fL LAB HEMATOLOGY METHOD 06/18/2025 1:29 PM EDT [facility] MCH 29.3 26.0 - 32.0 pg LAB HEMATOLOGY METHOD 06/18/2025 1:29 PM EDT [facility] MCHC 32.8 30.7 - 35.5 g/dL LAB HEMATOLOGY METHOD 06/18/2025 1:29 PM EDT [facility] RDW 13.7 11.5 - 14.5 % LAB HEMATOLOGY METHOD 06/18/2025 1:29 PM EDT [facility] MPV 11.1 8.8 - 12.5 fL LAB HEMATOLOGY METHOD 06/18/2025 1:29 PM EDT [facility] nRBC 0.0 <=0.0 per 100 WBCs LAB HEMATOLOGY METHOD 06/18/2025 1:29 PM EDT [facility] Differential Type Automated LAB HEMATOLOGY METHOD 06/18/2025 1:29 PM EDT [facility] Neutrophils % 56 % LAB HEMATOLOGY METHOD 06/18/2025 1:29 PM EDT [facility] Lymphocytes % 33 % LAB HEMATOLOGY METHOD 06/18/2025 1:29 PM EDT [facility] Monocytes % 8 % LAB HEMATOLOGY METHOD 06/18/2025 1:29 PM EDT [facility] Eosinophils % 2 % LAB HEMATOLOGY METHOD 06/18/2025 1:29 PM EDT [facility] Basophils % 1 % LAB HEMATOLOGY METHOD 06/18/2025 1:29 PM EDT [facility] Immature Granulocytes % 0 % LAB HEMATOLOGY METHOD 06/18/2025 1:29 PM EDT [facility] Neutrophils Absolute 3.91 1.60 - 6.10 10*3/uL LAB HEMATOLOGY METHOD 06/18/2025 1:29 PM EDT [facility] Lymphocytes Absolute 2.36 1.20 - 3.90 10*3/uL LAB HEMATOLOGY METHOD 06/18/2025 1:29 PM EDT [facility] Monocytes Absolute 0.54 0.30 - 0.90 10*3/uL LAB HEMATOLOGY METHOD 06/18/2025 1:29 PM EDT [facility] Eosinophils Absolute 0.17 0.00 - 0.50 10*3/uL LAB HEMATOLOGY METHOD 06/18/2025 1:29 PM EDT [facility] Basophils Absolute 0.06 0.00 - 0.10 10*3/uL LAB HEMATOLOGY METHOD 06/18/2025 1:29 PM EDT [facility] Immature Granulocytes Absolute 0.02 0.00 - 0.06 10*3/uL LAB HEMATOLOGY METHOD 06/18/2025 1:29 PM EDT [facility] Blood Venous blood specimen / Unknown Venipuncture / Unknown 06/18/2025 11:27 AM EDT 06/18/2025 11:27 AM EDT Narrative [facility] - 06/18/2025 1:29 PM EDT Therapeutic decision making should be based on absolute values, rather than percentages. [facility] [place] [facility] BLOOD ORDERABLES Final Result Performing Organization Address [facility] Co de Phone Number [facility] [address] [place] [address] * Hemoglobin A1c (06/18/2025 11:27 AM EDT) Hemoglobin A1c 5.5 <5.7 % 06/18/2025 4:38 PM EDT [facility] Blood Venous blood specimen / Unknown Venipuncture / Unknown 06/18/2025 11:27 AM EDT 06/18/2025 11:27 AM EDT Narrative [facility] - 06/18/2025 4:38 PM EDT HA1C Interpretive Data: Diagnosis of Diabetes: Diabetic > or = 6.5% Pre-diabetic 5.7 to 6.4% Non-diabetic < or = 5.6% Glycemic Targets for Type I and Type II Diabetics: Non- Adults <7.0% Adults <6.0% Children and Adolescents <7.5% Source: [place] [employer]. Standards of medical care in diabetes,2017. Diabetes Care.2017:40 (suppl 1):S1-S135. [place] [facility] BLOOD ORDERABLES Final Result Performing Organization Address [facility] Co de Phone Number [facility] [address] [place] [address] * (ABNORMAL) Comprehensive metabolic panel (06/18/2025 11:27 AM EDT) [facility] Glucose, Plasma 100(H) 74 - 99 mg/dL 06/18/2025 1:36 PM EDT [facility] BUN, Plasma 13 8 - 23 mg/dL 06/18/2025 1:36 PM EDT [facility] Creatinine, Plasma 0.80 0.70 - 1.20 mg/dL 06/18/2025 1:36 PM EDT [facility] BUN/Creatinine Ratio 16 06/18/2025 1:36 PM EDT [facility] Sodium, Plasma 137 136 - 145 mmol/L 06/18/2025 1:36 PM EDT [facility] Potassium, Plasma 4.1 3.6 - 4.9 mmol/L 06/18/2025 1:36 PM EDT [facility] Chloride, Plasma 102 97 - 107 mmol/L 06/18/2025 1:36 PM EDT [facility] CO2, Plasma 26 22 - 29 mmol/L 06/18/2025 1:36 PM EDT [facility] Anion Gap 9 6 - 16 mmol/L 06/18/2025 1:36 PM EDT [facility] Total Calcium, Plasma 8.9 8.9 - 10.2 mg/dL 06/18/2025 1:36 PM EDT [facility] Total Protein 7.0 6.3 - 7.9 g/dL 06/18/2025 1:36 PM EDT [facility] Albumin, Plasma 4.0 3.5 - 5.2 g/dL 06/18/2025 1:36 PM EDT [facility] AST, Plasma 26 10 - 50 U/L 06/18/2025 1:36 PM EDT [facility] ALT, Plasma 19 10 - 50 U/L 06/18/2025 1:36 PM EDT [facility] Alkaline Phosphatase, Plasma 57 40 - 115 U/L 06/18/2025 1:36 PM EDT [facility] Total Bilirubin, Plasma 0.6 0.2 - 1.1 mg/dL 06/18/2025 1:36 PM EDT [facility] eGFRcr 93.4 mL/min/1.7 3m*2 06/18/2025 1:36 PM EDT [facility] Comment:Reported eGFRcr in m L/min/1.73m2 is based the CKD-EPI 2020 equation that does not use a race coefficient. Blood Venous blood specimen / Unknown Venipuncture / Unknown 06/18/2025 11:27 AM EDT 06/18/2025 11:27 AM EDT [facility] [place] [facility] BLOOD ORDERABLES Final Result [facility] [address] [place] [address] * CT Angio Chest (04/09/2025 1:32 PM [...] measuring up to 15 mm (series 1, [id number] and [id number]). No pericardial or pleural effusion. [...] Gordon MD IMG CT PROCEDURES Final Result from Last 3 Months or Most Recently Relevant to Health Maintenance Additional Health Concerns Active Problems Noted Date Diagnosed Date Autogenerated Problem 05/24/2025 Insurance MEDICARE Advance Directives * Full Code (Latest Code Status on File) Date Activated Date Inactivated Comments 06/25/2025 12:59 PM 06/29/2025 1:39 PM Question Answer Comments I have reviewed the capacity from the link above and, if needed, have updated to appropriate status: Yes * Full Code Date Activated Date Inactivated Comments 04/09/2025 9:34 AM 04/09/2025 4:27 PM Question Answer Comments I have reviewed the capacity from the link above and, if needed, have updated to appropriate status: Yes * Full Code Date Activated Date Inactivated Comments 12/08/2021 8:54 AM 12/09/2021 4:02 PM Question Answer Comments Patient has decision-making capacity? Yes Care Teams Hooker Machine Tender Relationship Specialty Start Date End Date Stefan Pérez MD [address] [place] [address] PCP - General 12/08/21 Joanne Bolaños MD [address] [place] [address] Referring Physician Interventional Cardiology 05/25/25 Moi Joseph MD [address] [address] [address] [place] [address] Referring Physician Cardiology 06/30/25
--- OUTSIDE RECORDS SUMMARY | 2025-07-29 12:01 | XMS_ITS | Encounter Summary ---
Author Organization Healthcare Address [address] [place] [address] Care Team Providers Care Histology Aide Name Role Phone Stefan Pérez MD Primary Care Provider [phone] Joanne Bolaños MD Unavailable [phone] Moi Joseph MD Unavailable [phone] Encounter Details Date Type Department Care Team (Late Contact Info) Description 07/17/2024 Orders Only External Location [address] [place] [address] Moi Joseph MD 12[address] [facility] [address] [place] [address] Social History Tobacco Use Types Packs/Day Years [...] Department Care Team (Late Contact Info) Description 08/23/2025 9:30 AM EST Appointment Cardiac Imaging [address] [place] [address] 08/23/2025 12:00 PM EST Office [facility] [address], [address] [place] [address] Khushbu Gordon MD [address] [facility] [address] [place] [address] 09/01/2025 2:30 PM EST Office Visit [facility] [place] [address] [facility], [address] [place] [address] Chace Elsi Alba, DO [address] [place] [address] documented as of this encounter Procedures Procedure Name Priority Date/Time Associated Diagnosis Comments MR OUTSIDE IMAGES 07/17/2024 10:21 AM EST documented in this encounter Results * MR transfer of outside films (07/17/2024 10:21 AM EST) Anatomical Region Laterality Modality Magnetic Resonan ce 07/17/2024 10:2 1 AM EST Moi Joseph MD IM MRI PROCEDURES Final Result documented in this encounter Visit Diagnoses Not on filedocumented in this encounter Additional Health Concerns Assessment Noted Time A fall risk assessment has been complete d for the patient 01/01/2023 1:43 PM EDT A Body Mass Index follow-up plan has been documented for the patient 01/01/2023 6:03 PM EDT documented as of this encounter Care Teams Histology Aide Relationship Specialty Start Date End Date Stefan Pérez MD [facility] [place] [address] PCP - General 12/08/21 Joanne Bolaños MD [address] [place] [address] Referring Physician Interventional Cardiology 05/25/25 Moi Joseph MD 1210 [facility] [address] [place], [place] [id number] Referring Physician Cardiology 06/30/25 documented as of this encounter
--- OUTSIDE RECORDS SUMMARY | 2025-07-29 12:02 | XMS_ITS | Encounter Summary ---
Author Organization Healthcare Address [address] [place] [address] Care Team Providers Care Supervisor Show Operations Name Role Phone Stefan Pérez MD Primary Care Provider [phone] Joanne Bolaños MD Unavailable [phone] Encounter Details Date Type Department Care Team (Latest Contact Info) Description 06/29/2025 Travel Social History Tobacco Use Types Packs/Day [...] any time in the past 12 m [facility], were you homeless or living in a alf (including now)? No 06/28/2025 [facility] Utilities Answer Date Recorded In [...] as of this encounter Functional Status * Calculated C-SSRS Risk Score (Lifetime/Recent) Answer Date of Assessment Author No Risk Indicated 06/29/2025 8:00 AM Sophie Mendiola RN * Question Answer Date of Assessment Author 1. Wish to be (Past 1 Month) No 025 8:00 AM Sophie Menidola, KIRILL 2. Non-Specific Active Suici rossana Thoughts (Past 1 Month) No 06/29/2025 8:00 AM Sophie Mendiola , KIRILL 6. Suicidal Behavior (Lifetime) No 8:00 AM Sophie Mendiola RN documented as of this encounter Plan of Treatment Upcoming Encounters Date Type Department Care Team (Late st Contact Info) Description 08/23/2025 9:30 AM EST Appointment Cardiac Imaging [address] [place] [address] 08/23/2025 12:00 PM EST [facility] [address], [address] [place] [address] Khushbu Gordon MD [address] [place] [address] 09/01/2025 2:30 PM EST Office Visit [facility] [place] [address] [facility], [address] [place] [address] Elsi Mas DO [address] [place] [address] documented as of this encounter [...] documented as of this encounter Care Teams Supervisor Show Operations Relationship Specialty Start Date End Date Stefan Pérez MD [address] [facility] [address] [place], [place] [address] PCP - General 12/08/21 Joanne Bolaños MD [address] [place] [address] Referring Physician Interventional Cardiology 05/25/25 documented as of this encounter
--- OUTSIDE RECORDS SUMMARY | 2025-07-29 12:02 | XMS_ITS | Encounter Summary ---
Author Organization Healthcare Address [address] [place] [address] Care Team Providers Care Top Hat Body Maker Name Role Phone Stefan Pérez MD Primary Care Provider [phone] Joanne Bolaños MD Unavailable [phone] Encounter Details Date Type Department Care Team (Latest Contact Info) Description 06/28/2025 Travel Social History Tobacco Use Types Packs/Day [...] any time in the past 12 m [facility], were you homeless or living in a long term (including now)? No 06/28/2025 [facility] Utilities Answer Date Recorded In the [...] Date of Assessment Author No Risk Indicated 06/28/2025 8:00 AM Sophie Mendiola RN * Question Answer Date of Assessment Author 1. Wish to be (Past 1 Month) No 025 8:00 AM Sophie Mendiola, KIRILL 2. Non-Specific Active Suici rossana Thoughts (Past 1 Month) No 06/28/2025 8:00 AM Sophie Mendiola , KIRILL 6. Suicidal Behavior (Lifetime) No 8:00 AM Sophie Mendiola RN documented as of this encounter Plan of Treatment Upcoming Encounters Date Type Department Care Team (Late st Contact Info) Description 08/23/2025 9:30 AM EST Appointment Cardiac Imaging [address] [place] [address] 08/23/2025 12:00 PM EST Office [facility] [address], [address] [place] [address] Khushbu Gordon MD [address] [place] [address] 09/01/2025 2:30 PM EST Office Visit [facility] [place] [address] [facility], [address] [place] [address] Elsi Mas DO [address] [place] [address] documented as of this encounter [...] documented as of this encounter Care Teams Top Hat Body Maker Relationship Specialty Start Date End Date Stefan Pérez MD [address] [facility] [address] [place], [place] [id number] PCP - General 12/08/21 Joanne Bolaños MD [address] [place] [address] Referring Physician Interventional Cardiology 05/25/25 documented as of this encounter
--- OUTSIDE RECORDS SUMMARY | 2025-07-29 12:02 | XMS_ITS | Encounter Summary ---
Author Organization Healthcare Address [address] [place] [address] Care Team Providers Care Peer Support Specialist Name Role Phone Stefan Pérez MD Primary Care Provider [phone] Joanne Bolaños MD Unavailable [phone] Encounter Details Date Type Department Care Team (Latest Contact Info) Description 06/18/2025 Travel Social History Tobacco Use Types Packs/Day [...] AM EST Appointment Cardiac Imaging [address] [place] [address] 08/23/2025 12:00 PM EST Office [facility] [place] [facility] [address], [address] [place] [address] Khushbu Gordon MD [address] [place] [address] 09/01/2025 2:30 PM EST Office Visit [facility] [place] [address] [facility], [address] [place] [address] Elsi Mas DO [address] [place] [address] documented as of this encounter [...] documented as of this encounter Care Teams Peer Support Specialist Relationship Specialty Start Date End Date Stefan Pérez MD [address] [facility] [address] [place] [address] PCP - General 12/08/21 Joanne Bolaños MD [address] [place] [address] Referring Physician Interventional Cardiology 05/25/25 documented as of this encounter
--- OUTSIDE RECORDS SUMMARY | 2025-07-29 12:02 | XMS_ITS | Encounter Summary ---
Author Organization Healthcare Address [address] [place] [address] Care Team Providers Care Crusher Name Role Phone Stefan Pérez MD Primary Care Provider [phone] Joanne Bolaños MD Unavailable [phone] Encounter Details Date Type Department Care Team (Late Contact Info) Description 06/15/2025 Telephone [facility] [address], [address] [place] [address] James Gutiérrez MD [address] [place] [address] Social History Tobacco Use Types Packs/Day Years Used Date Smoking Tobacco: Former Cigarettes 1 30 Smokeless Tobacco: Former Alcohol Use Standard Drinks/Week Comments Not Currently [...] AM EST Appointment Cardiac Imaging [address] [place] [address] 08/23/2025 12:00 PM EST Office Visit [facility] [address], [address] [place] [address] Khushbu Gordon MD [address] [place] [address] 09/01/2025 2:30 PM EST Office Visit [facility] [place] [address] [facility], [address] [place] [address] Elsi Mas DO [address] [place] [address] documented as of this encounter [...] documented as of this encounter Care Teams Crusher Relationship Specialty Start Date End Date Stefan Pérez MD [address] [facility] [address] [place] [address] PCP - General 12/08/21 Joanne Bolaños MD [address] [place] [address] Referring Physician Interventional Cardiology 05/25/25 documented as of this encounter
--- OUTSIDE RECORDS SUMMARY | 2025-07-29 12:02 | XMS_ITS | Encounter Summary ---
Author Organization Healthcare Address [address] [place] [address] Care Team Providers Care Shank Turner Name Role Phone Stefan Pérez MD Primary Care Provider [phone] Joanne Bolaños MD Unavailable [phone] Moi Joseph MD Unavailable [phone] Encounter Details Date Type Department Care Team (Late st Contact Info) Description 06/28/2025 Lab Requisition [facility] [address] [place] [address] Ryan Sosa MD [address] [facility] [address] [place] [address] Encounter for general adult medical examination without abnormal findings Social History Tobacco Use Types Packs/Day Years [...] any time in the past 12 m [facility], were you homeless or living in a snf (including now)? No 06/28/2025 [facility] Utilities Answer Date Recorded [...] Wish to be (Past 1 Month) No 8:00 AM Sophie Mendiola RN 2. Non-Specific Active Suici rossana Thoughts (Past 1 Month) No 06/29/2025 8:00 AM Sophie Mendiola , KIRILL 6. Suicidal Behavior (Lifetime) No 8:00 AM Sophie Mendiola RN documented as of this encounter Plan of Treatment Upcoming Encounters Date Type Department Care Team (Late st Contact Info) Description 08/23/2025 9:30 AM EST Appointment Cardiac Imaging [address] [place] [address] 08/23/2025 12:00 PM EST Office Visit [facility] [address], [address] [place] [address] Khushbu Gordon MD [address] [place] [address] 09/01/2025 2:30 PM EST Office Visit [facility] [place] [address] [facility], [address] [place] [address] Elsi Mas, DO [address] [place] [address] documented as of this encounter Goals Goal Patient Goal Type Associated Problems Recent Progress Patient-Stated? Author Autogenera herman Goal Care Plan Autogenerated Problem No [place] Stinson PA documented as of this encounter Procedures Procedure Name Priority Date/Time Associated Diagnosis Comments MULTI DRUG RESISTANCE TEST Routine 06/28/2025 Encounter for general adult medical examination without abnormal findings documented in this encounter Results * Multi Drug Resistance Test (06/28/2025) Culture No growth at day 1 06/29/2025 12:06 PM EST [facility] Swab (Nares and Nereida Rectal) 06/28/2025 06/28/2025 10:36 AM EST Narrative [facility] - 06/29/2025 12:06 PM EST This test was developed and its performance characteristics determined by the [facility]. Although the media is FDA-approved, it is not FDA-approved for all specimen types submitted. The FDA has determined that such clearance or approval is not necessary. This test is used for surveillance purposes. It should not be regarded as investigational or for research. The [facility] is certified under the Clinical Laboratory Improvement Amendments of 1988 (CLIA-88) as qualified to perform high complexity clinical laboratory testing. Ryan Sosa MD LAB MICROBIOLOGY - GEN ERAL ORDERABLES Final Result [facility] [address] [place] [address] documented in this encounter Visit Diagnoses Diagnosis Encounter for general adult medical examination without abnormal findings documented in this encounter Additional Health Concerns [...] documented as of this encounter Care Teams Shank Turner Relationship Specialty Start Date End Date Stefan Pérez MD [address] [place] [address] [address] [place] [address] PCP - General 12/08/21 Joanne Bolaños MD [address] [place] [address] Referring Physician Interventional Cardiology 05/25/25 Moi Joseph MD [address] [place] [address] [place] [address] Referring Physician Cardiology 06/30/25 documented as of this encounter
--- OUTSIDE RECORDS SUMMARY | 2025-07-29 12:02 | XMS_ITS | Encounter Summary ---
Author Organization Healthcare Address [address] [id number] Care Team Providers Care Note Keeper Name Role Phone Stefan Pérez MD Primary Care Provider [phone] Joanne Bolaños MD Unavailable [phone] Encounter Details Date Type Department Care Team (Late st Contact Info) Description 06/14/2025 Telephone [place] [facility] [address], [address] [place] [address] Marcelle Méndez, RN [facility] [id number] [address] [place] [address] Social History Tobacco Use Types Packs/Day Years [...] encounter Miscellaneous Notes * Telephone Encounter - Marcelle Méndez RN - 06/14/2025 9:52 AM EDT Has not had labs/CXR completed. Requesting orders to be sent to Dr Pérez' office. Orders faxed as requested [phone]. He will have them completed tomorrow. documented in this encounter Plan of Treatment Upcoming Encounters Date Type Department Care Team (Late st Contact Info) Description 08/23/2025 9:30 AM EST Appointment Cardiac Imaging [address] [place] [address] 08/23/2025 12:00 PM EST Office Visit [facility] [address], [address] [place] [address] Khushbu Gordon MD [address] [place] [address] 09/01/2025 2:30 PM EST Office Visit [facility] [place] [address] [facility], [address] [place] [address] Elsi Mas, DO [address] [place] [address] documented as of this encounter [...] documented as of this encounter Care Teams Note Keeper Relationship Specialty Start Date End Date Stefan Pérez MD [address] [facility] [address] [place] [address] PCP - General 12/08/21 Joanne Bolaños MD [address] [place] [address] Referring Physician Interventional Cardiology 05/25/25 documented as of this encounter
--- OUTSIDE RECORDS SUMMARY | 2025-07-29 12:02 | XMS_ITS | Encounter Summary ---
Author Organization Healthcare Address [address] [place] [address] Care Team Providers Care Mathematician Research Name Role Phone Stefan Pérez MD Primary Care Provider [phone] Joanne Bolaños MD Unavailable [phone] Moi Joseph MD Unavailable [phone] Encounter Details Date Type Department Care Team (Late Contact Info) Description 07/22/2024 Orders Only External Location [address] [place] [address] Moi Joseph MD 1210 [facility] [address] [place] [address] Social History Tobacco Use Types Packs/Day Years [...] AM EST Appointment Cardiac Imaging [address] [place] [address] 08/23/2025 12:00 PM EST Office [facility] [address], [address] [place] [address] Khushbu Gordon MD [address] [facility] [address] [place] [address] 09/01/2025 2:30 PM EST Office Visit [facility] [place] [address] [facility], [address] [place] [address] Chace Elsi A, [address] [place] [address] documented as of this encounter [...] documented as of this encounter Care Teams Mathematician Research Relationship Specialty Start Date End Date Stefan Pérez MD [facility] [place] [address] PCP - General 12/08/21 Joanne Bolaños MD [address] [place] [address] Referring Physician Interventional Cardiology 05/25/25 Moi Joseph MD [address] [facility] [address] [place] [address] Referring Physician Cardiology 06/30/25 documented as of this encounter
--- OUTSIDE RECORDS SUMMARY | 2025-07-29 12:02 | XMS_ITS | Encounter Summary ---
Author Organization Healthcare Address [address] [place] [address] Care Team Providers Care College Advisor Name Role Phone Stefan Pérez MD Primary Care Provider [phone] Joanne Bolaños MD Unavailable [phone] Encounter Details Date Type Department Care Team (Late Contact Info) Description 06/17/2025 Telephone [facility] [address], [address] [place] [address] James Gutiérrez MD [address] [place] [address] Social History Tobacco Use Types [...] AM EST Appointment Cardiac Imaging [address] [place] [address] 08/23/2025 12:00 PM EST [facility] [address], [address] [place] [address] Khushbu Gordon MD [address] [place] [address] 09/01/2025 2:30 PM EST Office Visit [facility] [place] [address] [facility], [address] [place] [address] Elsi Mas DO [address] [place] [address] documented as of this encounter [...] documented as of this encounter Care Teams College Advisor Relationship Specialty Start Date End Date Stefan Pérez MD [address] [facility] [address] [place] [address] PCP - General 12/08/21 Joanne Bolaños MD [address] [place] [address] Referring Physician Interventional Cardiology 05/25/25 documented as of this encounter
--- OUTSIDE RECORDS SUMMARY | 2025-07-29 12:02 | XMS_ITS | Encounter Summary ---
Author Organization Healthcare Address [address] [place] [address] Care Team Providers Care Skiver Sock Linings Name Role Phone Stefan Pérez MD Primary Care Provider [phone] Joanne Bolñaos MD Unavailable [phone] Moi Joseph MD Unavailable [phone] Encounter Details Date Type Department Care Team (Late st Contact Info) Description 07/20/2025 Orders Only [facility] [address], [address] [place] [address] Provider, [place] [address] [address] [id number] Social History Tobacco Use Types Packs/Day Years [...] any time in the past 12 m [facility], were you homeless or living in a intermediate (including now)? No 06/28/2025 [facility] Utilities Answer Date Recorded In the past 12 months has th e [employer], gas, oil, or water company threatened to [...] AM EST Appointment Cardiac Imaging [address] [place] [address] 08/23/2025 12:00 PM EST Office Visit [place] [facility] [address], [address] [place] [address] Khushbu Gordon MD [address] [place] [address] 09/01/2025 2:30 PM EST Office Visit [facility] [place] [address] [facility], [address] [place] [address] Elsi Mas DO [address] [place] [address] documented as of this encounter [...] documented as of this encounter Care Teams Skiver Sock Linings Relationship Specialty Start Date End Date Stefan Pérez MD [address] [place] [address] PCP - General 12/08/21 Joanne Bolaños MD [address] [place] [address] Referring Physician Interventional Cardiology 05/25/25 Moi Joseph MD 1210 [facility] [address] [place] [address] Referring Physician Cardiology 06/30/25 documented as of this encounter
--- OUTSIDE RECORDS SUMMARY | 2025-07-29 12:02 | XMS_ITS | Encounter Summary ---
Author Organization Healthcare Address [address] [place] [address] Care Team Providers Care Server Engineer Name Role Phone Stefan Pérez MD Primary Care Provider [phone] Joanne Bolaños MD Unavailable [phone] Moi Joseph MD Unavailable [phone] Encounter Details Date Type Department Care Team (Late st Contact Info) Description 07/28/2025 Telephone [facility] [address], [address] [place] [address] Khushbu Gordon MD [address] [place] [address] Social History Tobacco Use Types [...] any time in the past 12 m [facility], were you homeless or living in a fdc (including now)? No 06/28/2025 [facility] Utilities Answer Date Recorded In the [...] encounter Miscellaneous Notes * Telephone Encounter - Jill Hart - 07/28/2025 3:34 PM EST Called to set patient up with sports book writer. He will be seen by Dr. Nunez on 08/04 @ 1:15. Patient is aware and agreed to got to appt. documented in this encounter Plan of Treatment Upcoming Encounters Date Type Department Care Team ([facility] st Contact Info) Description 08/23/2025 9:30 AM EST Appointment Cardiac Imaging [address] [place] [address] 08/23/2025 12:00 PM EST Office [facility] [address], [address] [place] [address] Khushbu Gordon MD [address] [place] [address] 09/01/2025 2:30 PM EST Office Visit [facility] [place] [address] [facility], [address] [place] [address] Elsi Mas, DO [address] [place] [address] documented as of this encounter [...] documented as of this encounter Care Teams Server Engineer Relationship Specialty Start Date End Date Stefan Pérez MD [address] [facility] [address] [place] [address] PCP - General 12/08/21 Joanne Bolaños MD [address] [place] [address] Referring Physician Interventional Cardiology 05/25/25 Moi Joseph MD [address] [place] [address] Referring Physician Cardiology 06/30/25 documented as of this encounter
--- OUTSIDE RECORDS SUMMARY | 2025-07-29 12:02 | XMS_ITS | Encounter Summary ---
Author Organization Healthcare Address [address] [place] [address] Care Team Providers Care Environmental Services Specialist Name Role Phone Stefan Pérez MD Primary Care Provider [phone] Joanne Bolaños MD Unavailable [phone] Moi Joseph MD Unavailable [phone] Encounter Details Date Type Department Care Team (Late Contact Info) Description 05/27/2024 Orders Only External Location [address] [place] [address] Stefan Pérez MD [address] [facility] [address] [place] [address] Social History Tobacco Use Types Packs/Day Years [...] AM EST Appointment Cardiac Imaging [address] [place] [address] 08/23/2025 12:00 PM EST Office Visit [place] [facility] [address], [address] [place] [address] Khushbu Gordon MD [address] [facility] [address] [place] [address] 09/01/2025 2:30 PM EST Office Visit [facility] [place] [address] [facility], [address] [place] [address] Chace Elsi Alba, DO [address] [place] [address] documented as of this encounter [...] documented as of this encounter Care Teams Environmental Services Specialist Relationship Specialty Start Date End Date Stefan Pérez MD [facility] [place] [address] [place] [address] PCP - General 12/08/21 Joanne Bolaños MD [address] [place] [address] Referring Physician Interventional Cardiology 05/25/25 Moi Joseph MD 1210 [facility] [address] [place] [address] Referring Physician Cardiology 06/30/25 documented as of this encounter
--- OUTSIDE RECORDS SUMMARY | 2025-07-29 12:02 | XMS_ITS | Encounter Summary ---
Author Organization Healthcare Address [address] [place] [address] Care Team Providers Care Zinc Etcher Name Role Phone Stefan Pérez MD Primary Care Provider [phone] Joanne Bolaños MD Unavailable [phone] Reason for Visit * Reason Onset Date Comments TEST CLAIM 06/28/2025 Encounter Details Date Type Department Care Team (Late st Contact Info) Description 06/28/2025 Telephone [facility] [address] [place] [address] Kapil Camacho, substance abuse specialist None None TEST CLAIM Social History Tobacco Use Types Packs/Day Years [...] any time in the past 12 m [facility], were you homeless or living in a penitentiary (including now)? No 06/28/2025 [facility] Utilities Answer Date Recorded In the past 12 months has th e [email or web address], gas, oil, or water company threatened to [...] No Risk Indicated 06/28/2025 8:00 AM Sophie Mendiola, KIRILL * Question Answer Date of Assessment Author 1. Wish to be (Past 1 Month) No 025 8:00 AM Sophie Mendiola RN 2. Non-Specific Active Suici rossana Thoughts (Past 1 Month) No 06/28/2025 8:00 AM EST Sophie Amin RN 6. Suicidal Behavior (Lifetime) No 8:00 AM EST Sophie Amin RN documented as of this encounter Miscellaneous Notes * Telephone Encounter - Kapil Camacho CPhT - 06/28/2025 9:33 AM EST Inpatient PA Pod Test Claim: Drug Name: ELIQUIS 5MG Day Supply: 30 DAYS Estimated Copay: INSURANCE NOT FOUND documented in this encounter Plan of Treatment Upcoming Encounters Date Type Department Care Team (Late st Contact Info) Description 08/23/2025 9:30 AM EST Appointment Cardiac Imaging [address] [place] [address] 08/23/2025 12:00 PM EST Office Visit [place] [facility] [address], [address] [place] [address] Khushbu Gordon MD [address] [place] [address] 09/01/2025 2:30 PM EST Office Visit [facility] [place] [address] [facility], [address] [place] [address] Elsi Mas, [address] [place] [address] documented as of this encounter [...] documented as of this encounter Care Teams Zinc Etcher Relationship Specialty Start Date End Date Stefan Pérez MD [facility] [address] [place], [place] [address] PCP - General 12/08/21 Joanne Bolaños MD [address] [place] [address] Referring Physician Interventional Cardiology 05/25/25 documented as of this encounter
--- OUTSIDE RECORDS SUMMARY | 2025-07-29 12:02 | XMS_ITS | Encounter Summary ---
Author Organization Healthcare Address [address] [place] [address] Care Team Providers Care Framing Manager Name Role Phone Stefan Pérez MD Primary Care Provider [phone] Joanne Bolaños MD Unavailable [phone] Moi Joseph MD Unavailable [phone] Encounter Details Date Type Department Care Team (Late st Contact Info) Description 07/26/2025 Telephone [facility] [address] [place] [address] Yesica Gray, PharmD None None Social History Tobacco Use Types Packs/Day Years [...] any time in the past 12 m [facility], were you homeless or living in a half-way (including now)? No 06/28/2025 [facility] Utilities Answer Date Recorded In the past 12 months has th e [employer], gas, oil, or water company threatened to shut off services in your home? No 06/28/2025 Sex and Gender Information Value Date Recorded Sex Assigned at Not on file Legal Sex Male 5:55 PM EDT Gender Identity Not on file Sexual Orientation Not on file documented as of this encounter Miscellaneous Notes * Telephone Encounter - Yesica Gray, PharmD - 07/28/2025 8:59 AM EST Patient reached by Medication Therapy Management team. MTM Platform: Transition of Care Refill Outreach Successful Intervention(s): Patient filled medication(s): metoprolol and atorvastatin Additional information: redcap to ship to [facility] on 07/28 Yesica Gray PharmD [facility] MTM Team documented in this encounter Plan of Treatment Upcoming Encounters Date Type Department Care Team (Late st Contact Info) Description 08/23/2025 9:30 AM EST Appointment Cardiac Imaging [address] [place] [address] 08/23/2025 12:00 PM EST [facility] [address], [address] [place] [address] Khushbu Gordon MD [address] [place] [address] 09/01/2025 2:30 PM EST Office Visit [facility] [place] [address] [facility], [address] [place] [address] Elsi Mas, DO [address] [place], [place] [id number] documented as of this encounter Goals Goal [...] documented as of this encounter Care Teams Framing Manager Relationship Specialty Start Date End Date Stefan Pérez MD [address] [facility] [address] [place] [address] PCP - General 12/08/21 Joanne Bolaños MD [address] [place] [address] Referring Physician Interventional Cardiology 05/25/25 Moi Joseph MD [address] [address] Referring Physician Cardiology 06/30/25 documented as of this encounter
--- OUTSIDE RECORDS SUMMARY | 2025-07-29 12:02 | XMS_ITS | Encounter Summary ---
Author Organization Healthcare Address [address] [place] [address] Care Team Providers Care Machine Feed Operator Name Role Phone Stefan Pérez MD Primary Care Provider [phone] Joanne Bolaños MD Unavailable [phone] Encounter Details Date Type Department Care Team (Latest Contact Info) Description 06/26/2025 Travel Social History Tobacco Use Types Packs/Day [...] Date of Assessment Author No Risk Indicated 06/26/2025 7:00 PM EDT Jed Burnett, RN * Question Answer Date of Assessment Author 1. Wish to be (Past 1 Month) No 025 7:00 PM EDT Jed Contreras, RN 2. Non-Specific Active Suici rossana Thoughts (Past 1 Month) No 06/26/2025 7:00 PM EDT Nelson Contreras, RN 6. Suicidal Behavior (Lifetime) No 7:00 PM EDT Jde Contreras, RN documented as of this encounter Plan of Treatment Upcoming Encounters Date Type Department Care Team (Late st Contact Info) Description 08/23/2025 9:30 AM EST Appointment Cardiac Imaging [address] [place] [address] 08/23/2025 12:00 PM EST Office [facility] [place] [facility] [address], [address] [place] [address] Khushbu Gordon MD [address] [facility] [address] [place] [address] 09/01/2025 2:30 PM EST Office Visit [facility] [place] [address] [facility], [address] [place] [address] Elsi Mas, DO [address] [place] [address] documented as of this encounter [...] documented as of this encounter Care Teams Machine Feed Operator Relationship Specialty Start Date End Date Stefan Pérez MD [address] [facility] [address] [place] [address] PCP - General 12/08/21 Joanne Bolaños MD [address] [place] [address] Referring Physician Interventional Cardiology 05/25/25 documented as of this encounter
--- OUTSIDE RECORDS SUMMARY | 2025-07-29 12:02 | XMS_ITS | Encounter Summary ---
Author Organization Healthcare Address [address] [place] [address] Care Team Providers Care Bulb Grower Name Role Phone Stefan Pérez MD Primary Care Provider [phone] Joanne Bolaños MD Unavailable [phone] Moi Joseph MD Unavailable [phone] Encounter Details Date Type Department Care Team (Latest Contact Info) Description 07/19/2025 Travel Social History Tobacco Use Types Packs/Day [...] any time in the past 12 m [facility], were you homeless or living in a residential (including now)? No 06/28/2025 [facility] Utilities Answer Date Recorded In the [...] AM EST Appointment Cardiac Imaging [address] [place] [address] 08/23/2025 12:00 PM EST Office Visit [place] [facility] [address], [facility] [address] [place] [address] Khushbu Gordon MD [address] [place] [phone] 09/01/2025 2:30 PM EST Office Visit [facility] [place] [address] [facility], [address] [place] [address] Chace Elsirosita Willis DO [address] [place] [address] documented as of this encounter [...] documented as of this encounter Care Teams Bulb Grower Relationship Specialty Start Date End Date Stefan Pérez MD [facility] [place] [place] [address] PCP - General 12/08/21 Joanne Bolaños MD [address] [place] [address] Referring Physician Interventional Cardiology 05/25/25 Moi Joseph MD 1210 [facility] [address] [place] [address] Referring Physician Cardiology 06/30/25 documented as of this encounter
--- OUTSIDE RECORDS SUMMARY | 2025-07-29 12:02 | XMS_ITS | Encounter Summary ---
Author Organization Healthcare Address [address] [place] [address] Care Team Providers Care Fur Designer Name Role Phone Stefan Pérez MD Primary Care Provider [phone] Joanne Bolaños MD Unavailable [phone] Moi Joseph MD Unavailable [phone] Encounter Details Date Type Department Care Team (Late Contact Info) Description 05/27/2024 Orders Only External Location [address] [place] [address] Provider, External Social History Tobacco Use Types [...] AM EST Appointment Cardiac Imaging [address] [place] [address] 08/23/2025 12:00 PM EST Office [facility] [address], [facility] [address] [place] [address] Khushbu Gordon MD [address] [facility] [address] [place] [address] 09/01/2025 2:30 PM EST Office Visit [facility] [place] [address] [facility], [address] [place] [address] Elsi Mas DO [address] [place] [address] documented as of this encounter [...] documented as of this encounter Care Teams Fur Designer Relationship Specialty Start Date End Date Stefan Pérez MD Counts include [facility] beds at the [facility]0 [place] [place] [address] PCP - General 12/08/21 Joanne Bolaños MD [address] [place] [address] Referring Physician Interventional Cardiology 05/25/25 Moi Joseph MD 1210 [facility] [address] [place], [place] [address] Referring Physician Cardiology 06/30/25 documented as of this encounter
--- OUTSIDE RECORDS SUMMARY | 2025-07-29 12:02 | XMS_ITS | Encounter Summary ---
Author Organization Healthcare Address [address] [place] [address] Care Team Providers Care Naturopathic Doctor Name Role Phone Stefan Pérez MD Primary Care Provider [phone] Joanne Bolaños MD Unavailable [phone] Moi Joseph MD Unavailable [phone] Encounter Details Date Type Department Care Team (Late Contact Info) Description 07/17/2024 Orders Only External Location [address] [place] [address] Moi Joseph MD 1210 [facility] [address] [place] [address] Social History Tobacco Use Types Packs/Day Years [...] AM EST Appointment Cardiac Imaging [address] [place] [address] 08/23/2025 12:00 PM EST Office [facility] [place] [facility] [address], [address] [place] [address] Khushbu Gordon MD [address] [facility] [address] [place] [address] 09/01/2025 2:30 PM EST Office Visit [facility] [place] [address] [facility], [address] [place] [address] Chace Elsi Alba, DO [address] [place] [address] documented as of this encounter [...] documented as of this encounter Care Teams Naturopathic Doctor Relationship Specialty Start Date End Date Stefan Pérez MD [facility] [place] [address] [place] [address] PCP - General 12/08/21 Joanne Bolaños MD [address] [place] [address] Referring Physician Interventional Cardiology 05/25/25 Moi Joseph MD 1210 [facility] [address] [place], [place] [address] Referring Physician Cardiology 06/30/25 documented as of this encounter
--- OUTSIDE RECORDS SUMMARY | 2025-07-29 12:02 | XMS_ITS | Encounter Summary ---
Author Organization Healthcare Address [address] [place] [address] Care Team Providers Care Wind Energy Project Manager Name Role Phone Stefan Pérez MD Primary Care Provider [phone] Joanne Bolaños MD Unavailable [phone] Encounter Details Date Type Department Care Team (Latest Contact Info) Description 06/27/2025 Travel Social History Tobacco Use Types Packs/Day [...] any time in the past 12 m [facility], were you homeless or living in a custodial (including now)? No 06/28/2025 [facility] Utilities Answer Date Recorded In the [...] EST Appointment Cardiac Imaging [address] [place] [address] 08/23/2025 12:00 PM EST Office Visit [place] [facility] [address], [facility] [address] [place] [address] Khushbu Gordon MD [address] [place] [address] 09/01/2025 2:30 PM EST Office Visit [facility] [place] [address] [facility], [address] [place] [address] Elsi Mas DO [address] [place] [address] documented as of this encounter [...] documented as of this encounter Care Teams Wind Energy Project Manager Relationship Specialty Start Date End Date Stefan Pérez MD [address] [facility] [address] [place] [address] PCP - General 12/08/21 Joanne Bolaños MD [address] [place] [address] Referring Physician Interventional Cardiology 05/25/25 documented as of this encounter
--- OUTSIDE RECORDS SUMMARY | 2025-07-29 12:02 | XMS_ITS | Encounter Summary ---
Author Organization Healthcare Address [address] [place] [address] Care Team Providers Care Crimp Setter Name Role Phone Stefan Pérez MD Primary Care Provider [phone] Joanne Bolaños MD Unavailable [phone] Encounter Details Date Type Department Care Team (Late Contact Info) Description 06/16/2025 Telephone [place] [facility] [address], [address] [place] [address] James Gutiérrez MD [address] [place] [address] Social History Tobacco Use Types [...] Appointment Cardiac Imaging [address] [place] [address] 08/23/2025 12:00 PM EST Office Visit [place] [facility] [address], [address] [place] [address] Khushbu Gordon MD [address] [place] [address] 09/01/2025 2:30 PM EST Office Visit [facility] [place] [address] [facility], [address] [place] [address] Elsi Mas DO [address] [place] [address] documented as of this encounter [...] documented as of this encounter Care Teams Crimp Setter Relationship Specialty Start Date End Date Stefan Pérez MD [address] [facility] [address] [place] [address] PCP - General 12/08/21 Joanne Bolaños MD [address] [place] [address] Referring Physician Interventional Cardiology 05/25/25 documented as of this encounter
--- OUTSIDE RECORDS SUMMARY | 2025-07-29 12:03 | XMS_ITS | Encounter Summary ---
Author Organization Healthcare Address [address] [place] [address] Care Team Providers Care Crm Marketing Analyst Name Role Phone Pcp, No Primary Care Provider Unavailabl e Stefan Pérez MD Primary Care Provider [phone] Joanne Bolaños MD Unavailable [phone] Moi Joseph MD Unavailable [phone] Encounter Details Date Type Department Care Team (Late st Contact Info) Description 07/26/2021 Orders Only External Location [address] [place] [address] Provider, External Social History Tobacco Use Types [...] AM EST Appointment Cardiac Imaging [address] [place] [address] 08/23/2025 12:00 PM EST Office Visit [facility] [address] [place] [address] Khushbu Gordon MD [address] [place] [address] 09/01/2025 2:30 PM EST Office Visit [facility] [place] [address] [facility], [address] [place] [address] Chace Elsi A, [address] [place] [address] documented as of this encounter [...] on filedocumented in this encounter Care Teams Crm Marketing Analyst Relationship Specialty Start Date End Date Pcp, No [address] [place] [address] PCP - General Family Medicine 11/07/21 12/07/21 Stefan Pérez MD [address] [place] [address] [address] [place] [address] PCP - General 12/08/21 Joanne Bolaños MD [address] [place] [address] Referring Physician Interventional Cardiology 05/25/25 Moi Joseph MD [address] [place] [address] [place] [address] Referring Physician Cardiology 06/30/25 documented as of this encounter
--- OUTSIDE RECORDS SUMMARY | 2025-07-29 12:03 | XMS_ITS | Encounter Summary ---
Author Organization Healthcare Address [address] [place] [address] Care Team Providers Care Cement Storage Worker Name Role Phone Stefan Pérez MD Primary Care Provider [phone] Joanne Bolaños MD Unavailable [phone] Encounter Details Date Type Department Care Team (Latest Contact Info) Description 06/25/2025 Travel Social History Tobacco Use Types Packs/Day [...] AM EST Appointment Cardiac Imaging [address] [place] [address] 08/23/2025 12:00 PM EST Office Visit [place] [facility] [address], [address] [place] [address] Khushbu Gordon MD [address] [place] [address] 09/01/2025 2:30 PM EST Office Visit [facility] [place] [address] [facility], [address] [place] [address] Elsi Mas DO [address] [place] [address] documented as of this encounter [...] documented as of this encounter Care Teams Cement Storage Worker Relationship Specialty Start Date End Date Stefan Pérez MD [address] [facility] [address] [place] [address] PCP - General 12/08/21 Joanne Bolaños MD [address] [place] [address] Referring Physician Interventional Cardiology 05/25/25 documented as of this encounter
== END 2025-07-29 23:59 | disposition home or self-care (01) ==
LOC: RAD 11:47
PROVIDERS: PCP Internal Medicine; Visit Provider Internal Medicine
DX: M19.012 Primary osteoarthritis, left shoulder (principal); M75.32 Calcific tendinitis of left shoulder; M75.52 Bursitis of left shoulder
CPT/HCPCS: 73030